=== PATIENT | male | born 1955 | race Caucasian/White ===

== ENCOUNTER 2017-03-07 20:23 | Inpatient (IN) | payer OTHER, MEDICARE ==
[2017-03-07] MEDS ORDERED: SODIUM CHLORIDE 0.9% 1000 ML INFUS.BAG IV PRN (21:12)
--- NOTE | 2017-03-07 21:12 | PDOC ---
History of Present Illness - History of Present Illness Initial Comments: 03/07/17 21:54 The patient is a 61 year old male, with a significant past medical history of COPD, collapsed left lung, who presents to the emergency department with shortness of breath and 104 degree fever. Patient states that he is currently on oxygen and has a nebulizer. He recently saw the ENT to see if he was allergic to penicillin since it runs in the family. While he was there he was given the pneumonia shot. This morning he began experiencing nasal congestion so he tried flushing it out with warm water. He states that clots of blood began to pour out and subsided for 1 hour. He states that he took 2 Tylenol around 5pm today. He denies any recent chills, headache or dizziness. He denies any recent nausea , vomit, diarrhea or constipation. He denies any recent chest pain. He denies any recent dysuria, frequency, urgency or hematuria. Allergies: NKA Past surgical history: None reported. Social History: Former smoker (quit 10 yrs ago 4-5 packs) Denies EtOH use and recreational drug use. PCP: Paddy Mendoza [phone] <Tayla Rust - Last Filed: 03/08/17 01:59> <Jesusita Hsieh - Last Filed: 03/08/17 02:06> - General Chief Complaint: Respiratory Stated Complaint: COPD Time Seen by Provider: 03/07/17 20:39 Past History <Tayla Rust - Last Filed: 03/08/17 01:59> - Suicide/Smoking/Psychosocial Hx Smoking History: Unknown if ever smoked Have you smoked in the past 12 months: No Information on smoking cessation initiated: No Hx Alcohol Use: No Drug/Substance Use Hx: No <Jesusita Hsieh - Last Filed: 03/08/17 02:06> - Past Medical History Allergies/Adverse Reactions: Allergies Allergy/AdvReac Type Severity Reaction Status Date / Time No Known Allergies Allergy Verified 03/07/17 21:05 Review of Systems - Review of Systems Comments:: 03/07/17 22:02 CONSTITUTIONAL: Present: fever Absent: chills, diaphoresis, generalized weakness, malaise, loss of appetite HEENT: Present: nasal congestion, nasal discharge (w/blood) Absent: rhinorrhea, throat pain, throat swelling, difficulty swallowing, mouth swelling, ear pain, eye pain, visual changes CARDIOVASCULAR: Absent: chest pain, syncope, palpitations, irregular heart rate, lightheadedness , peripheral edema RESPIRATORY: Present: dyspnea, Absent: cough, wheezing, stridor, hemoptysis GASTROINTESTINAL: Absent: abdominal pain, abdominal distension, nausea, vomiting, diarrhea, constipation, melena, hematochezia GENITOURINARY: Absent: dysuria, frequency, urgency, hesitancy, hematuria, flank pain, genital pain MUSCULOSKELETAL: Absent: myalgia, arthralgia, joint swelling SKIN: Absent: rash, itching, pallor HEMATOLOGIC/IMMUNOLOGIC: Absent: easy bleeding, easy bruising, lymphadenopathy, frequent infections ENDOCRINE: Absent: unexplained weight gain, unexplained weight loss, heat intolerance, cold intolerance NEUROLOGIC: Absent: headache, focal weakness or paresthesias, dizziness, unsteady gait, seizure, mental status changes, bladder or bowel incontinence PSYCHIATRIC: Absent: anxiety, depression, suicidal or homicidal ideation, hallucinations. <Tayla Rust - Last Filed: 03/08/17 01:59> *Physical Exam - Vital Signs Last Vital Signs Temp Pulse Resp BP Pulse Ox 102.1 F H 115 H 16 92/60 96 03/07/17 21:05 03/07/17 21:05 03/07/17 21:05 03/07/17 21:05 03/07/17 21:05 - Physical Exam Comments: 03/07/17 22:08 GENERAL: 102 oral temperature. Morbidly obese. Well developed, well nourished. Awake and alert. No acute distress. HEENT: Normocephalic, atraumatic. PERRLA, EOMI. No conjunctival pallor. Sclera are non- icteric. Moist mucous membranes. Oropharynx is clear. NECK: Supple. Full ROM. No JVD. Carotid pulses 2+ and symmetric, without bruits. No thyromegaly. No lymphadenopathy. CARDIOVASCULAR: Hypotensive. No murmurs, rubs, or gallops. PULMONARY: Dyspneic. No wheezing. ABDOMINAL: Soft, protuberant. Non-tender. Non-distended. No rebound or guarding. No organomegaly. Normoactive bowel sounds. MUSCULOSKELETAL Normal range of motion at all joints. No bony deformities or tenderness. No CVA tenderness. EXTREMITIES: chronic venous stasis, pitting edema, erythema to right lower leg. No cyanosis. No clubbing. No calf tenderness. SKIN: Warm and dry. Normal capillary refill. No rashes. No jaundice. NEUROLOGICAL: Alert, awake, appropriate. Cranial nerves 2-12 intact. No deficits to light touch and temperature in face, upper extremities and lower extremities. No motor deficits in the in face, upper extremities and lower extremities. Normoreflexic in the upper and lower extremities. Normal speech. Toes are down-going bilaterally. Gait is normal without ataxia. PSYCHIATRIC: Cooperative. Good eye contact. Appropriate mood and affect. <Tayla Rust - Last Filed: 03/08/17 01:59> - Vital Signs Last Vital Signs Temp Pulse Resp BP Pulse Ox 102.1 F H 115 H 16 92/60 96 03/07/17 21:05 03/07/17 21:05 03/07/17 21:05 03/07/17 21:05 03/07/17 21:05 <Jesusita Hsieh - Last Filed: 03/08/17 02:06> Heart Score/ECG Review - ECG Intrepretation Comment:: 03/08/17 00:45 ECG interpretation Sinus tachycardia possible left atrial enlargement incomplete right bundle branch block left posterior fascicular block Vent rate: 112 bpm <Tayla Rust - Last Filed: 03/08/17 01:59> ED Treatment Course - LABORATORY CBC & Chemistry Diagram: 03/07/17 22:00 03/07/17 22:00 <Tayla Rust - Last Filed: 03/08/17 01:59> - LABORATORY CBC & Chemistry Diagram: 03/07/17 22:00 03/07/17 22:00 <Jesusita Hsieh - Last Filed: 03/08/17 02:06> Medical Decision Making - Medical Decision Making 03/08/17 01:48 duplex doppler was NEGATIVE for DVT 03/08/17 02:02 61-year-old morbidly obese male presents with fever and shortness of breath. RLE is erythematous, +cellulitis History of present illness patient typically is seen at [facility] and comes to [facility] for the first time. He has a fever 102, was hypotensive with systolic of 95 and he is hypoxic at 89 % on room air. Past medical history significant for COPD and does use oxygen at home as needed , he takes a water pill 20 mg of Lasix a day, he has chronic venous stasis and has had multiple episodes of cellulitis. Patient takes Lasix 20 mg, he has bronchodilators to use at home, prednisolone 10 mg daily Influenza culture is negative Chest x-ray negative for any acute infiltrates, some suggestion of mild congestive heart failure Review of her CBC shows leukocytosis of 26,000, no significant anemia Chemistries significant for renal insufficiency. BPH greater than 600. Urine cultures and blood cultures sent. Troponin was 0.[address] Segovia. The patient will be admitted to [facility] for IV antibiotics for suspected cellulitis IMP CELULITIS/SEPSIS,COPD,MORBID OBESITY <Jesusita Hsieh - Last Filed: 03/08/17 02:06> *DC/Admit/Observation/Transfer - Attestations Scribe Attestion: 03/07/17 22:11 Documentation prepared by Tayla Rust, acting as outside medical sales representative for Jesusita Hsieh MD. <Tayla Rust - Last Filed: 03/08/17 01:59> - Discharge Dispostion Admit: Yes <Jesusita Hsieh - Last Filed: 03/08/17 02:06> Diagnosis at time of Disposition: Morbid obesity Cellulitis Qualifiers: Site of cellulitis: mouth Qualified Code(s): K12.2 - Cellulitis and abscess of mouth Fever Qualifiers: Fever type: unspecified Qualified Code(s): R50.9 - Fever, unspecified CHF (congestive heart failure) Qualifiers: Congestive heart failure type: unspecified congestive heart failure type Congestive heart failure chronicity: unspecified congestive heart failure chronicity Qualified Code(s): I50.9 - Heart failure, unspecified COPD (chronic obstructive pulmonary disease) Qualifiers: COPD type: emphysema Emphysema type: unspecified Qualified Code(s): J43.9 - Emphysema, unspecified
[2017-03-07 22:18] LABS: MCHC 31.3 g/dl (32.0-35.9); MEAN CELL VOLUME 70.3 fl (80-96); MEAN PLT VOLUME 8.8 fl (7.5-11.1); PLATELET COUNT 194 K/MM3 (134-434); RDW 16.9 % (11.9-15.9); WHITE BLOOD COUNT 26.3 K/mm3 (4.0-10.0)
[2017-03-07 23:13] LABS: INR 1.17 (0.82-1.09); PROTHROMBIN TIME (PATIENT) 13.2 SEC (9.98-11.88)
[2017-03-07 23:20] LABS: ALBUMIN 4.1 g/dl (3.4-5.0); ANION GAP 13 (8-16); BILIRUBIN,TOTAL 0.9 mg/dL (0.2-1.0); CALCIUM 9.3 mg/dL (8.5-10.1); CO2 26 mmol/L (21-32); GLUCOSE,RANDOM 118 mg/dL (74-106); SGOT/AST 27 U/L (15-37); SGPT/ALT 29 U/L (12-78); TOT PROT 7.6 g/dl (6.4-8.2)
[2017-03-07 23:22] LABS: ALK PHOS 77 U/L (45-117); CPK 316 IU/L (39-308); TROPONIN I 0.08 ng/ml (0.00-0.05)
[2017-03-07 23:42] LABS: VENOUS BLOOD GAS HCO3 23.4 meq/L (19-25); VENOUS PH 7.34 (7.32-7.42)
[2017-03-08 00:11] LABS: URINE APPEARANCE CLEAR; URINE BILIRUBIN 1+ (NEGATIVE); URINE BLOOD NEGATIVE (NEGATIVE); URINE COLOR YELLOW; URINE GLUCOSE (UA) NEGATIVE (NEGATIVE); URINE KETONE TRACE (NEGATIVE); URINE NITRITE NEGATIVE (NEGATIVE); URINE UROBILINOGEN 0.2 mg/dL (0.2-1.0)
[2017-03-08 00:19] LABS: URINE PROTEIN 2+ (NEGATIVE)
[2017-03-08] MEDS ORDERED: CEFTRIAXONE 1 GM in DEXTROSE 5%-WATER - 50 ML IVPB ONE (00:51)
[2017-03-08] MEDS ORDERED: AZITHROMYCIN IVPB 500 MG in DEXTROSE 5%-WATER - 250 ML IVPB ONE (00:52)
[2017-03-08] MEDS ORDERED: CEFTRIAXONE 1 GM/50 ML BAG ONE (00:57)
[2017-03-08 01:03] LABS: SMUDGE CELLS FEW
[2017-03-08 01:04] LABS: ANISOCYTOSIS 1+; HYPOCHROMIA 1+; MICROCYTOSIS 1+; POIKILOCYTOSIS 1+; POLYCHROMASIA 1+
[2017-03-08] MEDS ORDERED: PIPERACIL/TAZOB 3.375 GM 3.375 GM/50 ML PREMIX IVPB ONE (01:57)
--- NOTE | 2017-03-08 02:05 | PN ---
Teaching Attending Note Name of Resident: Ed Shaver ATTENDING PHYSICIAN STATEMENT I saw and evaluated the patient. I reviewed the resident's note and discussed the case with the resident. I agree with the resident's findings and plan as documented. SUBJECTIVE: 61 yo M COPD on home 02, collapsed left lung from pneumonia, obesity who presents with shortness of breath, and fever. States he went to ENT who recently placed him on Symbicort and he states he was unable to tolerate it. States this morning he started to have nasal congestion and he flushed his nose with warm water and clots fell out. Notes he had increased shortness of breath, no chest pain or pressure. States he was febrile at home to 104. States he recently had his pneumonia. States he is on chronic steriods for his COPD. COPD is managed by his PCP. OBJECTIVE: Physical: VS: Vital Signs Period Temp Pulse Resp BP Sys/Santiago Pulse Ox Last 24 Hr 98.5 F-102.1 F 95-115 16-25 92-95/53-60 89-96 GEN: NAD, Sitting in a chair, on 02, able to speak full sentences HEENT: NCAT, PERRL, Throat without erythema or exudates CARD: S tach S1, S2 RESP: Decreased BS at bases ABD: Obese BSX4, NTD to palpation EXT: RLE with warmth, dry ulcers and non-pitting edema. CBCD WBC 26.3 K/mm3 (4.0-10.0) H 03/07/17 22:00 RBC 6.78 M/mm3 (4.00-5.60) H 03/07/17 22:00 Hgb 14.9 GM/dL (11.7-16.9) 03/07/17 22:00 Hct 47.7 % (35.4-49) 03/07/17 22:00 MCV 70.3 fl (80-96) L 03/07/17 22:00 MCHC 31.3 g/dl (32.0-35.9) L 03/07/17 22:00 RDW 16.9 % (11.9-15.9) H 03/07/17 22:00 Plt Count 194 K/MM3 (134-434) 03/07/17 22:00 MPV 8.8 fl (7.5-11.1) 03/07/17 22:00 CMP Sodium 137 mmol/L (136-145) 03/07/17 22:00 Potassium 4.2 mmol/L (3.5-5.1) 03/07/17 22:00 Chloride 98 mmol/L (98-107) 03/07/17 22:00 Carbon Dioxide 26 mmol/L (21-32) 03/07/17 22:00 Anion Gap 13 (8-16) 03/07/17 22:00 BUN 34 mg/dL (7-18) H 03/07/17 22:00 Creatinine 2.0 mg/dL (0.7-1.3) H 03/07/17 22:00 Creat Clearance w eGFR 34.37 (>60) 03/07/17 22:00 Random Glucose 118 mg/dL (74-106) H 03/07/17 22:00 Calcium 9.3 mg/dL (8.5-10.1) 03/07/17 22:00 Total Bilirubin 0.9 mg/dL (0.2-1.0) 03/07/17 22:00 AST 27 U/L (15-37) 03/07/17 22:00 ALT 29 U/L (12-78) 03/07/17 22:00 Alkaline Phosphatase 77 U/L (45-117) 03/07/17 22:00 Total Protein 7.6 g/dl (6.4-8.2) 03/07/17 22:00 Albumin 4.1 g/dl (3.4-5.0) 03/07/17 22:00 CARDIAC ENZYMES Creatine Kinase 316 IU/L (39-308) H 03/07/17 22:00 Troponin I 0.08 ng/ml (0.00-0.05) H 03/07/17 22:00 CXR: Mild- Mod. Pulmonary Vascular congestion and possibly small left plueral effusion vs. non-specific thickening, correlate clinically for CHF exacerbation. No definate airspace consolidation to suggest pneumonia ASSESSMENT AND PLAN: 61 yo M COPD on home 02, collapsed left lung from pneumonia, obesity who presents with shortness of breath, and fever. Being admitted for sepsis, CHF, and COPD 1.)Acute CHF Exacerbation - Trend Trop/EKG - Lasix - ECHO - Cardio Consult - Daily Weight - NA/Fluid Restrict 2.) Acute Exacerbation of COPD - Duonebs - Solumedrol - C/W Singulaor - Cannot tolerate Symbicort or Advair - Pulm. consult for optimization 3.) Sepsis (Although leukocytosis may be due to steriod use)-fever and tachy - LA Pending - Most likely due to Cellulitis - Blood Cx - Flu negative - Vancomycin - ID consult - FU UA, Ucx 4.) Troponin Elevation - Most likely demand, Trend - Lipid Panel, HgBA1c 5.) LAWANDA - U lytes - Avoid Nephrotoxins - Trend 6.) Dvt PPx - Heparin [address] in Med-Tele
[2017-03-08] MEDS ORDERED: AZITHROMYCIN IVPB 250 ML IVPB ONE (02:22)
[2017-03-08] MEDS ORDERED: VANCOMYCIN 1 GRAM (PRE-DOCKED) 1,000 MG/250 ML BAG IVPB ONE (02:32)
[2017-03-08] MEDS ORDERED: ACETAMINOPHEN 500 MG TABLET (FP) PO ONE (02:32)
[2017-03-08 02:33] LABS: URINE BACTERIA RARE /hpf (NONE SEEN); URINE HYALINE CAST 7 /lpf; URINE MUCUS RARE; URINE RBC 1 /hpf (0-3); URINE WBC 15 /hpf (3-5)
--- NOTE | 2017-03-08 02:38 | HP ---
CHIEF COMPLAINT: SOB, chills. HISTORY OF PRESENT ILLNESS: Patient is a 61 yo M with a PMHx of COPD (on home O2 but does not use frequently), obesity, CHF, sleep apnea, presented today because of worsening SOB, Chills and a subjective fever of 104.2 that started started today. Patient said he also was delirious and hallucinating with extreme chills. He took 2 tylenol pills with no improvement in temperature. He says he is short of breath at baseline because of his Hx of COPD but felt worse today. He also has increasing cough with yellow sputum production. He was started on Symbicort 2 weeks ago and says he gets pneumonia everytime he takes symbicort. This morning he also had nasal congestion and when he went to flush his nose he had an episode of epistaxis with blood clots. He is on chronic steroids for his COPD and does not follow a rib chopper. ER course was notable for: (1)102.1 Temp, 95/53 BP, 25 RR (2)WBC: 26.3 (3)IV ABx: Ceftriaxone, Azithromycin Recent Travel: n/a PAST MEDICAL HISTORY: COPD (on home O2), obesity, CHF, sleep apnea PAST SURGICAL HISTORY: Social History: Smoking: quit 10 years ago Alcohol:denies Drugs: denies Family History: Allergies No Known Allergies Allergy (Verified 03/07/17 21:05) HOME MEDICATIONS: REVIEW OF SYSTEMS CONSTITUTIONAL: fevers, chills Absent: diaphoresis, generalized weakness, malaise, loss of appetite, weight change HEENT: nasal congestion Absent: throat pain, throat swelling, difficulty swallowing, mouth swelling, ear pain, eye pain, visual changes CARDIOVASCULAR: peripheral edema Absent: chest pain, syncope, palpitations, irregular heart rate, lightheadedness RESPIRATORY: cough, shortness of breath Absent: dyspnea with exertion, orthopnea, wheezing, stridor, hemoptysis GASTROINTESTINAL: Absent: abdominal pain, abdominal distension, nausea, vomiting, diarrhea, constipation, melena, hematochezia GENITOURINARY: Absent: dysuria, frequency, urgency, hesitancy, hematuria, flank pain, genital pain MUSCULOSKELETAL: Absent: myalgia, arthralgia, joint swelling, back pain, neck pain SKIN: Absent: itching, pallor HEMATOLOGIC/IMMUNOLOGIC: Absent: easy bleeding, easy bruising, lymphadenopathy, frequent infections NEUROLOGIC: Absent: headache, focal weakness or paresthesias, dizziness, unsteady gait, seizure, mental status changes, bladder or bowel incontinence PHYSICAL EXAMINATION Vital Signs - 24 hr 03/07/17 03/08/17 21:05 00:54 Temperature 102.1 F H 98.5 F Pulse Rate 115 H Pulse Rate [ 95 H Apical] Respiratory 16 25 H Rate Blood Pressure 92/60 Blood Pressure 95/53 [Right Arm] O2 Sat by Pulse 96 89 L Oximetry (%) GENERAL: obese, Awake, alert, and fully oriented, in no acute distress. HEAD: Normal with no signs of trauma. EYES: sclera anicteric, conjunctiva clear EARS, NOSE, THROAT: nares patent, oropharynx clear without exudates. Moist mucous membranes. NECK: supple without lymphadenopathy LUNGS: decreased breath sounds at bases. No wheezes, and no crackles. HEART: Regular rate and rhythm, normal S1 and S2 without murmur, rub or gallop. ABDOMEN: Obese, nontender, not distended, normoactive bowel sounds, no guarding , no rebound UPPER EXTREMITIES: 2+ pulses, warm, well-perfused. No cyanosis. No clubbing. LOWER EXTREMITIES: B/L lymphedema, chronic venous stasis, RLE dry ulceration, warm, erythematous, non pitting edema. PSYCHIATRIC: Cooperative. Good eye contact. Appropriate mood and affect. SKIN: Warm, dry, normal turgor, no rashes or lesions noted, normal capillary refill. Laboratory Results - last 24 hr 03/07/17 03/07/17 03/07/17 21:55 22:00 22:00 WBC 26.3 H RBC 6.78 H Hgb 14.9 Hct 47.7 MCV 70.3 L MCH 22.0 L MCHC 31.3 L RDW 16.9 H Plt Count 194 MPV 8.8 Neutrophils % [employer] Neutrophils % (Manual) 87.0 H Band Neutrophils % 5.0 Lymphocytes % [employer] Lymphocytes % (Manual) 1.0 L Monocytes % [employer] Monocytes % (Manual) 7 Eosinophils % [employer] Basophils % [employer] Smudge Cells Few Hypochromia 1+ Polychromasia 1+ Poikilocytosis 1+ Anisocytosis 1+ Microcytosis 1+ PT with INR 13.20 H INR 1.17 H PTT (Actin FS) 27.0 VBG pH POC VBG pCO2 POC VBG pO2 Mixed VBG HCO3 Sodium Potassium Chloride Carbon Dioxide Anion Gap BUN Creatinine Creat Clearance w eGFR Random Glucose Calcium Total Bilirubin AST ALT Alkaline Phosphatase Creatine Kinase Creatine Kinase Index CK-MB (CK-2) Troponin I B-Natriuretic Peptide 637.81 H Total Protein Albumin Urine Color Urine Appearance Urine pH Ur Specific [place] Urine Protein Urine Glucose (UA) Urine Ketones Urine Blood Urine Nitrite Urine Bilirubin Urine Urobilinogen Blood Type Antibody Screen 03/07/17 03/07/17 03/07/17 22:00 22:00 22:40 WBC RBC Hgb Hct MCV MCH MCHC RDW Plt Count MPV Neutrophils % Neutrophils % (Manual) Band Neutrophils % Lymphocytes % Lymphocytes % (Manual) Monocytes % Monocytes % (Manual) Eosinophils % Basophils % Smudge Cells Hypochromia Polychromasia Poikilocytosis Anisocytosis Microcytosis PT with INR INR PTT (Actin FS) VBG pH POC VBG pCO2 POC VBG pO2 Mixed VBG HCO3 Sodium 137 Potassium 4.2 Chloride 98 Carbon Dioxide 26 Anion Gap 13 BUN 34 H Creatinine 2.0 H Creat Clearance w eGFR 34.37 Random Glucose 118 H Calcium 9.3 Total Bilirubin 0.9 AST 27 ALT 29 Alkaline Phosphatase 77 Creatine Kinase 316 H Creatine Kinase Index 0.5 CK-MB (CK-2) 1.772 Troponin I 0.08 H B-Natriuretic Peptide Total Protein 7.6 Albumin 4.1 Urine Color Yellow Urine Appearance Clear Urine pH 6.0 Ur Specific [place] 1.015 Urine Protein 2+ H Urine Glucose (UA) Negative Urine Ketones Trace H Urine Blood Negative Urine Nitrite Negative Urine Bilirubin 1+ H Urine Urobilinogen 0.2 Blood Type O POSITIVE Antibody Screen Negative 03/07/17 23:17 WBC RBC Hgb Hct MCV MCH MCHC RDW Plt Count MPV Neutrophils % Neutrophils % (Manual) Band Neutrophils % Lymphocytes % Lymphocytes % (Manual) Monocytes % Monocytes % (Manual) Eosinophils % Basophils % Smudge Cells Hypochromia Polychromasia Poikilocytosis Anisocytosis Microcytosis PT with INR INR PTT (Actin FS) VBG pH 7.34 POC VBG pCO2 44.9 POC VBG pO2 40.0 Mixed VBG HCO3 23.4 Sodium Potassium Chloride Carbon Dioxide Anion Gap BUN Creatinine Creat Clearance w eGFR Random Glucose Calcium Total Bilirubin AST ALT Alkaline Phosphatase Creatine Kinase Creatine Kinase Index CK-MB (CK-2) Troponin I B-Natriuretic Peptide Total Protein Albumin Urine Color Urine Appearance Urine pH Ur Specific [place] Urine Protein Urine Glucose (UA) Urine Ketones Urine Blood Urine Nitrite Urine Bilirubin Urine Urobilinogen Blood Type Antibody Screen ASSESSMENT/PLAN: #Sepsis likely secondary to RLE Cellulitis -102.1 Temp, 25 RR -Hypotensive 89/61 BP -WBC: 26.3 -LA 1.6 -IV ABx: Vancomycin 1gm -UCX, Bcx pending -250 Bolus IV fluids and re-assess patient -cardiac monitoring -ID consulted #B/l chronic lower extremity lymphedema -keep legs elevated -wash with luke warm water -apply moisturizer -compression stockings up till knee starting from dorsum of foot -Venous duplex negative for DVT #COPD exacerbation -O2 Supplementation -Solu-Medrol 60mg BID -Albuterol PRN -Duoneb Q6H -Montelukast 10mg -Pulmonology consulted #CHF -Daily weight, I/O's -Echo -Cardiology consulted -Patient is hypotensive due to sepsis, will hold Lasix -cardiac monitoring #LAWANDA -likely prerenal azotemia -urine electrolytes -protein to creatinine ratio -renal u/s #Elevated Troponin -likely demand -1st set 0.08 -FU repeat Trop in AM #FEN -Fluid restriction -WNL -Sodium restricted diet #PPX: Heparin SQ TID Dispo: Tele Visit type - Emergency Visit Emergency Visit: Yes ED Registration Date: 03/08/17 Care time: The patient presented to the Emergency Department on the above date and was hospitalized for further evaluation of their emergent condition. - New Patient This patient is new to me today: Yes Date on this admission: 03/08/17 - Critical Care Critical Care patient: No
[2017-03-08] MEDS ORDERED: predniSONE 20 MG TABLET (UD) PO SCH (02:45)
[2017-03-08] MEDS ORDERED: SODIUM CHLORIDE 250 ML IV STA (03:12)
[2017-03-08] MEDS ORDERED: ACETAMINOPHEN 325 MG TABLET (FP) ONE (03:17)
[2017-03-08 04:53] LABS: ALLENS TEST POSITIVE; ART PUNCT SITE LEFT RADIAL; ARTERIAL BLOOD GAS BASE EXCESS 0.7 meq/l (-2-2); ARTERIAL BLOOD GAS HCO3 26.6 meq/L (22-26); ARTERIAL BLOOD GAS PO2 90.9 mmHg (80-100); ARTERIAL BLOOD GAS pH 7.35 (7.35-7.45); LPM/O2% 5L; METHEMOGLOBIN 0.7 % (0.4-1.5); PT. ON O2? YES; TYPE OF O2 NASAL
[2017-03-08] MEDS ORDERED: PIPERACILLIN/TAZOB 3.375 GM 3.375 GM/50 ML BAG IVPB ONE ×3 (04:57→19:01)
[2017-03-08 05:44] LABS: TROPONIN I 0.05 ng/ml (0.00-0.05)
[2017-03-08] MEDS: HEPARIN NA (PORCINE) 5,000 UNITS/ML 1ML VIAL SQ SCH ×3 (06:29→23:38)
[2017-03-08] MEDS: ALBUTEROL SO4 2.5/IPRATROPIUM 0.5 INH SOL 3 ML VIAL.NEB. NEB SCH ×3 (06:29→19:06)
[2017-03-08] MEDS ORDERED: HEPARIN NA (PORCINE) 5,000 UNITS/ML 1ML VIAL ONE (06:58)
[2017-03-08] MEDS ORDERED: ALBUTEROL SO4 2.5/IPRATROPIUM 0.5 INH SOL 3 ML VIAL.NEB. NEB ONE ×3 (06:58→16:37)
[2017-03-08 07:01] LABS: MCH 21.9 pg (25.7-33.7); MEAN CELL VOLUME 70.5 fl (80-96); MEAN PLT VOLUME 7.9 fl (7.5-11.1); PLATELET COUNT 160 K/MM3 (134-434); WHITE BLOOD COUNT 23.1 K/mm3 (4.0-10.0)
[2017-03-08 07:28] LABS: ALBUMIN 3.6 g/dl (3.4-5.0); ANION GAP 11 (8-16); BILIRUBIN,TOTAL 0.9 mg/dL (0.2-1.0); CO2 27 mmol/L (21-32); GLUCOSE,RANDOM 122 mg/dL (74-106); MAGNESIUM 1.8 mg/dL (1.8-2.4); PHOSPHOROUS 5.7 mg/dL (2.5-4.9); SGOT/AST 24 U/L (15-37); SGPT/ALT 27 U/L (12-78)
[2017-03-08 07:30] LABS: ALK PHOS 67 U/L (45-117); CALCIUM 8.6 mg/dL (8.5-10.1); TOT PROT 7.1 g/dl (6.4-8.2)
--- NOTE | 2017-03-08 07:57 | CONSULT ---
Consultation: REQUESTING PROVIDER: Ruthie Bullock CONSULT REQUEST: We have been asked to medically evaluate this patient for sepsis. HISTORY OF PRESENT ILLNESS: 61M w/ hx of multiple episodes of cellulitis, COPD (on home O2), CHF, morbid obesity, and GAY presenting with SOB and fever of 104.2 for 1 day. Pt also reports chills, nasal congestion, increased cough, and feeling delirious and hallucinating. He took 2 tylenols without relief. He flushed his nose with water which led to epistaxis with clots. Pt usually follows at [facility]. He reports chronic venous stasis changes in his legs for last 10 years with multiple episodes of cellulitis. He currently denies leg pain or increasing erythema, but endorses mild increased swelling in RLE. In the ED, pt given the antibiotics zosyn, vancomycin, ceftriaxone, and azithromycin. REVIEW OF SYSTEMS: CONSTITUTIONAL: Absent: diaphoresis, generalized weakness, malaise, loss of appetite, weight change present: fever, chills HEENT: Absent: throat pain, throat swelling, difficulty swallowing, mouth swelling, ear pain, eye pain, visual changes present: nasal congestion, epistaxis CARDIOVASCULAR: Absent: chest pain, syncope, palpitations, irregular heart rate, lightheadedness , peripheral edema RESPIRATORY: Absent: dyspnea with exertion, orthopnea, wheezing, stridor, hemoptysis present: cough, SOB GASTROINTESTINAL: Absent: abdominal pain, abdominal distension, nausea, vomiting, diarrhea, constipation, melena, hematochezia GENITOURINARY: Absent: dysuria, frequency, urgency, hesitancy, hematuria, flank pain, genital pain MUSCULOSKELETAL: Absent: myalgia, arthralgia, joint swelling, back pain, neck pain SKIN: Absent: rash, itching, pallor HEMATOLOGIC/IMMUNOLOGIC: Absent: easy bleeding, easy bruising, lymphadenopathy, frequent infections ENDOCRINE: Absent: unexplained weight gain, unexplained weight loss, heat intolerance, cold intolerance NEUROLOGIC: Absent: headache, focal weakness or paresthesias, dizziness, unsteady gait, seizure, mental status changes, bladder or bowel incontinence present: delirium, hallucinating PHYSICAL EXAMINATION Vital Signs - 24 hr 03/07/17 03/08/17 03/08/17 21:05 00:54 04:01 Temperature 102.1 F H 98.5 F Pulse Rate 115 H Pulse Rate [ 95 H 80 Apical] Respiratory 16 25 H Rate Blood Pressure 92/60 Blood Pressure 95/53 100/59 [Right Arm] O2 Sat by Pulse 96 89 L Oximetry (%) 03/08/17 06:31 Temperature Pulse Rate Pulse Rate [ 89 Apical] Respiratory 20 Rate Blood Pressure Blood Pressure 98/78 [Right Arm] O2 Sat by Pulse 99 Oximetry (%) GENERAL: obese male, awake, alert, and fully oriented, in no acute distress. HEAD: Normal with no signs of trauma. EYES: Pupils equal, round and reactive to light, extraocular movements intact, sclera anicteric, conjunctiva clear. No lid lag. EARS, NOSE, THROAT: Ears normal, nares patent, oropharynx clear without exudates. Moist mucous membranes. NECK: Normal range of motion, supple without lymphadenopathy, JVD, or masses. LUNGS: breathing on NC 3L, Breath sounds equal, clear to auscultation bilaterally. No wheezes, and no crackles. No accessory muscle use. HEART: Regular rate and rhythm, normal S1 and S2 without murmur, rub or gallop. ABDOMEN: obese, soft, nontender, not distended, normoactive bowel sounds, no guarding, no rebound, no masses. No hepatomegaly or splenomegaly. MUSCULOSKELETAL: b/l severe LE edema with venous stasis dermatitis, erythematous , non-warm to touch, non-tender to palpation NEUROLOGICAL: Cranial nerves II-XII intact. Normal speech. Normal gait. PSYCHIATRIC: Cooperative. Good eye contact. Appropriate mood and affect. Laboratory Results - last 24 hr 03/07/17 03/07/17 03/07/17 21:55 22:00 22:00 WBC 26.3 H RBC 6.78 H Hgb 14.9 Hct 47.7 MCV 70.3 L MCH 22.0 L MCHC 31.3 L RDW 16.9 H Plt Count 194 MPV 8.8 Neutrophils % [employer] Neutrophils % (Manual) 87.0 H Band Neutrophils % 5.0 Lymphocytes % [employer] Lymphocytes % (Manual) 1.0 L Monocytes % [employer] Monocytes % (Manual) 7 Eosinophils % [employer] Basophils % [employer] Smudge Cells Few Hypochromia 1+ Polychromasia 1+ Poikilocytosis 1+ Anisocytosis 1+ Microcytosis 1+ PT with INR 13.20 H INR 1.17 H PTT (Actin FS) 27.0 Puncture Site ABG pH ABG pCO2 at Pt Temp ABG pO2 at Pt Temp ABG HCO3 ABG O2 Sat (Measured) ABG O2 Content ABG Base Excess Mauri Test VBG pH POC VBG pCO2 POC VBG pO2 Mixed VBG HCO3 Carboxyhemoglobin Methemoglobin O2 Delivery Device Oxygen Flow Rate PEEP Sodium Potassium Chloride Carbon Dioxide Anion Gap BUN Creatinine Creat Clearance w eGFR Random Glucose Lactic Acid Calcium Phosphorus Magnesium Total Bilirubin AST ALT Alkaline Phosphatase Creatine Kinase Creatine Kinase Index CK-MB (CK-2) Troponin I B-Natriuretic Peptide 637.81 H Total Protein Albumin Urine Color Urine Appearance Urine pH Ur Specific [place] Urine Protein Urine Glucose (UA) Urine Ketones Urine Blood Urine Nitrite Urine Bilirubin Urine Urobilinogen Urine WBC (Auto) Urine RBC (Auto) Ur Epithelial Cells Urine Bacteria Hyaline Casts Urine Mucus U Random Total Protein Ur Random Sodium Ur Random Potassium Ur Random Chloride Urine Creatinine Protein/Creatinin Ratio Blood Type Antibody Screen 03/07/17 03/07/17 03/07/17 22:00 22:00 22:40 WBC RBC Hgb Hct MCV MCH MCHC RDW Plt Count MPV Neutrophils % Neutrophils % (Manual) Band Neutrophils % Lymphocytes % Lymphocytes % (Manual) Monocytes % Monocytes % (Manual) Eosinophils % Basophils % Smudge Cells Hypochromia Polychromasia Poikilocytosis Anisocytosis Microcytosis PT with INR INR PTT (Actin FS) Puncture Site ABG pH ABG pCO2 at Pt Temp ABG pO2 at Pt Temp ABG HCO3 ABG O2 Sat (Measured) ABG O2 Content ABG Base Excess Mauri Test VBG pH POC VBG pCO2 POC VBG pO2 Mixed VBG HCO3 Carboxyhemoglobin Methemoglobin O2 Delivery Device Oxygen Flow Rate PEEP Sodium 137 Potassium 4.2 Chloride 98 Carbon Dioxide 26 Anion Gap 13 BUN 34 H Creatinine 2.0 H Creat Clearance w eGFR 34.37 Random Glucose 118 H Lactic Acid Calcium 9.3 Phosphorus Magnesium Total Bilirubin 0.9 AST 27 ALT 29 Alkaline Phosphatase 77 Creatine Kinase 316 H Creatine Kinase Index 0.5 CK-MB (CK-2) 1.772 Troponin I 0.08 H B-Natriuretic Peptide Total Protein 7.6 Albumin 4.1 Urine Color Yellow Urine Appearance Clear Urine pH 6.0 Ur Specific [place] 1.015 Urine Protein 2+ H Urine Glucose (UA) Negative Urine Ketones Trace H Urine Blood Negative Urine Nitrite Negative Urine Bilirubin 1+ H Urine Urobilinogen 0.2 Urine WBC (Auto) 15 Urine RBC (Auto) 1 Ur Epithelial Cells Rare Urine Bacteria Rare Hyaline Casts 7 Urine Mucus Rare U Random Total Protein Ur Random Sodium Ur Random Potassium Ur Random Chloride Urine Creatinine Protein/Creatinin Ratio Blood Type O POSITIVE Antibody Screen Negative 03/07/17 03/08/17 03/08/17 23:17 02:23 04:50 WBC RBC Hgb Hct MCV MCH MCHC RDW Plt Count MPV Neutrophils % Neutrophils % (Manual) Band Neutrophils % Lymphocytes % Lymphocytes % (Manual) Monocytes % Monocytes % (Manual) Eosinophils % Basophils % Smudge Cells Hypochromia Polychromasia Poikilocytosis Anisocytosis Microcytosis PT with INR INR PTT (Actin FS) Puncture Site Left radial ABG pH 7.35 ABG pCO2 at Pt Temp 50.1 H ABG pO2 at Pt Temp 90.9 ABG HCO3 26.6 H ABG O2 Sat (Measured) 97.0 ABG O2 Content 19.0 ABG Base Excess 0.7 Mauri Test Positive VBG pH 7.34 POC VBG pCO2 44.9 POC VBG pO2 40.0 Mixed VBG HCO3 23.4 Carboxyhemoglobin 1.9 Methemoglobin 0.7 O2 Delivery Device Nasal Oxygen Flow Rate 5l PEEP 0.0 Sodium Potassium Chloride Carbon Dioxide Anion Gap BUN Creatinine Creat Clearance w eGFR Random Glucose Lactic Acid 1.6 Calcium Phosphorus Magnesium Total Bilirubin AST ALT Alkaline Phosphatase Creatine Kinase Creatine Kinase Index CK-MB (CK-2) Troponin I B-Natriuretic Peptide Total Protein Albumin Urine Color Urine Appearance Urine pH Ur Specific [place] Urine Protein Urine Glucose (UA) Urine Ketones Urine Blood Urine Nitrite Urine Bilirubin Urine Urobilinogen Urine WBC (Auto) Urine RBC (Auto) Ur Epithelial Cells Urine Bacteria Hyaline Casts Urine Mucus U Random Total Protein Ur Random Sodium Ur Random Potassium Ur Random Chloride Urine Creatinine Protein/Creatinin Ratio Blood Type Antibody Screen 03/08/17 03/08/17 03/08/17 04:50 04:50 06:25 WBC 23.1 H RBC 6.31 H Hgb 13.8 Hct 44.5 MCV 70.5 L MCH 21.9 L MCHC 31.0 L RDW 17.0 H Plt Count 160 MPV 7.9 D Neutrophils % [employer] Neutrophils % (Manual) Band Neutrophils % Lymphocytes % [employer] Lymphocytes % (Manual) Monocytes % [employer] Monocytes % (Manual) Eosinophils % [employer] Basophils % [employer] Smudge Cells Hypochromia Polychromasia Poikilocytosis Anisocytosis Microcytosis PT with INR INR PTT (Actin FS) Puncture Site ABG pH ABG pCO2 at Pt Temp ABG pO2 at Pt Temp ABG HCO3 ABG O2 Sat (Measured) ABG O2 Content ABG Base Excess Mauri Test VBG pH POC VBG pCO2 POC VBG pO2 Mixed VBG HCO3 Carboxyhemoglobin Methemoglobin O2 Delivery Device Oxygen Flow Rate PEEP Sodium Potassium Chloride Carbon Dioxide Anion Gap BUN Creatinine Creat Clearance w eGFR Random Glucose Lactic Acid Calcium Phosphorus Magnesium Total Bilirubin AST ALT Alkaline Phosphatase Creatine Kinase Creatine Kinase Index CK-MB (CK-2) Troponin I 0.05 D B-Natriuretic Peptide Total Protein Albumin Urine Color Urine Appearance Urine pH Ur Specific [place] Urine Protein Urine Glucose (UA) Urine Ketones Urine Blood Urine Nitrite Urine Bilirubin Urine Urobilinogen Urine WBC (Auto) Urine RBC (Auto) Ur Epithelial Cells Urine Bacteria Hyaline Casts Urine Mucus U Random Total Protein 220 H Ur Random Sodium 15 Ur Random Potassium 63.0 Ur Random Chloride 12 Urine Creatinine 406.0 H Protein/Creatinin Ratio 0.54 Blood Type Antibody Screen 03/08/17 06:25 WBC RBC Hgb Hct MCV MCH MCHC RDW Plt Count MPV Neutrophils % Neutrophils % (Manual) Band Neutrophils % Lymphocytes % Lymphocytes % (Manual) Monocytes % Monocytes % (Manual) Eosinophils % Basophils % Smudge Cells Hypochromia Polychromasia Poikilocytosis Anisocytosis Microcytosis PT with INR INR PTT (Actin FS) Puncture Site ABG pH ABG pCO2 at Pt Temp ABG pO2 at Pt Temp ABG HCO3 ABG O2 Sat (Measured) ABG O2 Content ABG Base Excess Mauri Test VBG pH POC VBG pCO2 POC VBG pO2 Mixed VBG HCO3 Carboxyhemoglobin Methemoglobin O2 Delivery Device Oxygen Flow Rate PEEP Sodium 135 L Potassium 4.3 Chloride 97 L Carbon Dioxide 27 Anion Gap 11 BUN 40 H Creatinine 3.0 H D Creat Clearance w eGFR 21.53 Random Glucose 122 H Lactic Acid Calcium 8.6 Phosphorus 5.7 H Magnesium 1.8 Total Bilirubin 0.9 AST 24 ALT 27 Alkaline Phosphatase 67 Creatine Kinase Creatine Kinase Index CK-MB (CK-2) Troponin I B-Natriuretic Peptide Total Protein 7.1 Albumin 3.6 Urine Color Urine Appearance Urine pH Ur Specific [place] Urine Protein Urine Glucose (UA) Urine Ketones Urine Blood Urine Nitrite Urine Bilirubin Urine Urobilinogen Urine WBC (Auto) Urine RBC (Auto) Ur Epithelial Cells Urine Bacteria Hyaline Casts Urine Mucus U Random Total Protein Ur Random Sodium Ur Random Potassium Ur Random Chloride Urine Creatinine Protein/Creatinin Ratio Blood Type Antibody Screen Active Medications Generic Name Dose Route Start Last Admin Trade Name Freq PRN Reason Stop Dose Admin Albuterol Sulfate 1 amp 03/08/17 02:34 Ventolin 0.083% Nebulizer Soln - NEB Q4H PRN SHORT OF BREATH/WHEEZING Albuterol/Ipratropium 1 amp 03/08/17 06:00 03/08/17 06:29 Duoneb - NEB 1 amp QIDR JALYN Administration Heparin Sodium (Porcine) 5,000 unit 03/08/17 06:00 03/08/17 06:29 Heparin - SQ 5,000 unit TID JALYN Administration Methylprednisolone Sodium Succinate 60 mg 03/08/17 10:00 Solu-Medrol - IVPUSH BID JALYN Montelukast Sodium 10 mg 03/08/17 22:00 Singulair - PO HS JALYN Sodium Chloride 1,000 ml 03/07/17 21:12 03/07/17 22:38 Normal Saline - IV 1,000 ml Q20M PRN Administration MAP<65mm Hg OR SBP <90 Doppler: negtive for DVT CXR: mild to moderate vascular congestion and possible small left pleural effusion ASSESSMENT/PLAN: 61M w/ hx of multiple episodes of cellulitis, COPD (on home O2), CHF, morbid obesity, and GAY presenting with acute fever. #RLE cellulitis -likely source for infection in this patient with fever and leukocytosis -continue vancomycin and zosyn -f/u cultures and sensitivities Rest of care per hospitalist team Plan discussed with attending, Dr. De La Cruz. Dispo: We will continue to follow the patient. Thank you for this consultative opportunity. -Douglas Miranda MD PGY1 Visit type - Emergency Visit Emergency Visit: Yes ED Registration Date: 03/08/17 Care time: The patient presented to the Emergency Department on the above date and was hospitalized for further evaluation of their emergent condition. - New Patient This patient is new to me today: Yes Date on this admission: 03/08/17 - Critical Care Critical Care patient: No
--- NOTE | 2017-03-08 08:29 | PN ---
Teaching Attending Note Name of Resident: Douglas Miranda ATTENDING PHYSICIAN STATEMENT I saw and evaluated the patient. I reviewed the resident's note and discussed the case with the resident. I agree with the resident's findings and plan as documented. SUBJECTIVE:Seen with Dr Miranda resident Febrile but does not acutely ill Baseline COPD on home O2 OBJECTIVE: ASSESSMENT AND PLAN: Selected Entries 03/07/17 21:05 Temperature 102.1 F H Pulse Rate 115 H Blood Pressure 92/60 O2 Sat by Pulse 96 Oximetry (%) Weight 350 lb Bilateral LE edema venous stasis dermatitis severe nodular lesions left swollen greater then R Morbid obesity Plan Agree with Vancomycin and Zosyn pending c/s Problem List - Problems (1) COPD (chronic obstructive pulmonary disease) Code(s): J44.9 - CHRONIC OBSTRUCTIVE PULMONARY DISEASE, UNSPECIFIED Qualifiers: COPD type: emphysema Emphysema type: unspecified Qualified Code(s): J43.9 - Emphysema, unspecified (2) Cellulitis Code(s): L03.90 - CELLULITIS, UNSPECIFIED Qualifiers: Site of cellulitis: mouth Qualified Code(s): K12.2 - Cellulitis and abscess of mouth (3) Fever Code(s): R50.9 - FEVER, UNSPECIFIED Qualifiers: Fever type: unspecified Qualified Code(s): R50.9 - Fever, unspecified (4) Morbid obesity Code(s): E66.01 - MORBID (SEVERE) OBESITY DUE TO EXCESS CALORIES
[2017-03-08 08:32] LABS: HYPOCHROMIA 2+; MICROCYTOSIS 2+; TOTAL CELLS COUNTED 100
--- NOTE | 2017-03-08 08:35 | PN ---
Physical Exam: SUBJECTIVE: Patient seen and examined by me this AM - Pt endorses chills overnight, chronic cough, now with productive yellow sputum. Denies fever, ART/dizziness, CP, palpitations, N/V, abdominal pain, dysuria, constipation, diarrhea - States that he was started on symbicort roughly two weeks ago; States that he get sbrochitis-like symptoms. Multiple prior admissions this year for PNA per pt , some of which he attributes to symbicort use. - Pt states he cannot lie down flat without becoming SOB. Does not ambulate with assistance. - Endorses decreased urine production, dark color. Epitaxis ~1 cup yesterday. - Pt on home oxygen, SOB at baseline. Currently on a 45 day course of prednisone. OBJECTIVE: Vital Signs Intake & Output 03/05/17 03/06/17 03/07/17 03/08/17 23:59 23:59 23:59 23:59 Weight 158.757 kg Period Temp Pulse Resp BP Sys/Santiago Pulse Ox Last 24 Hr 98.5 F-102.1 F 77-115 16-25 89-102/53-78 89-99 GENERAL: The patient is awake, alert, and fully oriented, in no acute distress. HEAD: NCAT EYES: PERRL, extraocular movements intact, sclera anicteric, conjunctiva clear. No ptosis. ENT: Ears normal, nares patent, oropharynx clear without exudates, moist mucous membranes. NECK: Trachea midline, supple. LUNGS: Decreased breath sounds at bases, trace upper lung field wheezes, no crackles, no accessory muscle use. HEART: 2/6 systolic murmur best appreciable at LLSB. Regular rate and rhythm, S1 , S2 without murmur, rub or gallop. ABDOMEN: Reducible umbilical hernia. Soft, nontender, globular, normoactive bowel sounds, no guarding, no rebound, no hepatosplenomegaly Upper EXTREMITIES: 2+ pulses, warm, well-perfused, no edema. Spooning of distal phalanges noted. Lower Extremities: 1+ DP pulses, PT pulses. 2+ non-pitting edema BL. BL stasis dermatitis, w/ chronic venous stasis, BL hyperpigmentation and hyperkeratotic raised lesions on R anterior prescott. Very mild erythema in R lower ankle on the anterior surface. Prior healed laceration on underneath nail of R big toe. NEUROLOGICAL: Cranial nerves II through XII grossly intact. Normal speech, gait not observed. PSYCH: Normal mood, normal affect. Laboratory Results - last 24 hr CBC, BMP 03/08/17 06:25 03/08/17 06:25 ABG Results ABG pH 7.35 (7.35-7.45) 03/08/17 04:50 ABG pCO2 at Pt Temp 50.1 mmHg (35-45) H 03/08/17 04:50 ABG pO2 at Pt Temp 90.9 mmHg (80-100) 03/08/17 04:50 ABG HCO3 26.6 meq/L (22-26) H 03/08/17 04:50 ABG O2 Sat (Measured) 97.0 % (90-98.9) 03/08/17 04:50 ABG O2 Content 19.0 % vol (15-22) 03/08/17 04:50 ABG Base Excess 0.7 meq/l (-2-2) 03/08/17 04:50 03/07/17 03/07/17 03/07/17 21:55 22:00 22:00 WBC 26.3 H RBC 6.78 H Hgb 14.9 Hct 47.7 MCV 70.3 L MCH 22.0 L MCHC 31.3 L RDW 16.9 H Plt Count 194 MPV 8.8 Neutrophils % [employer] Project [employer] Neutrophils % (Manual) 87.0 H Band Neutrophils % 5.0 Lymphocytes % Business Project [employer]st Lymphocytes % (Manual) 1.0 L Monocytes % Business Project [employer]st Monocytes % (Manual) 7 Eosinophils % Business Project Analyst Basophils % Business Project [employer]st Smudge Cells Few Hypochromia 1+ Polychromasia 1+ Poikilocytosis 1+ Anisocytosis 1+ Microcytosis 1+ PT with INR 13.20 H INR 1.17 H PTT (Actin FS) 27.0 Puncture Site ABG pH ABG pCO2 at Pt Temp ABG pO2 at Pt Temp ABG HCO3 ABG O2 Sat (Measured) ABG O2 Content ABG Base Excess Mauri Test VBG pH POC VBG pCO2 POC VBG pO2 Mixed VBG HCO3 Carboxyhemoglobin Methemoglobin O2 Delivery Device Oxygen Flow Rate PEEP Sodium Potassium Chloride Carbon Dioxide Anion Gap BUN Creatinine Creat Clearance w eGFR Random Glucose Lactic Acid Calcium Phosphorus Magnesium Total Bilirubin AST ALT Alkaline Phosphatase Creatine Kinase Creatine Kinase Index CK-MB (CK-2) Troponin I B-Natriuretic Peptide 637.81 H Total Protein Albumin Urine Color Urine Appearance Urine pH Ur Specific [place] Urine Protein Urine Glucose (UA) Urine Ketones Urine Blood Urine Nitrite Urine Bilirubin Urine Urobilinogen Urine WBC (Auto) Urine RBC (Auto) Ur Epithelial Cells Urine Bacteria Hyaline Casts Urine Mucus U Random Total Protein Ur Random Sodium Ur Random Potassium Ur Random Chloride Urine Creatinine Protein/Creatinin Ratio Blood Type Antibody Screen 03/07/17 03/07/17 03/07/17 22:00 22:00 22:40 WBC RBC Hgb Hct MCV MCH MCHC RDW Plt Count MPV Neutrophils % Neutrophils % (Manual) Band Neutrophils % Lymphocytes % Lymphocytes % (Manual) Monocytes % Monocytes % (Manual) Eosinophils % Basophils % Smudge Cells Hypochromia Polychromasia Poikilocytosis Anisocytosis Microcytosis PT with INR INR PTT (Actin FS) Puncture Site ABG pH ABG pCO2 at Pt Temp ABG pO2 at Pt Temp ABG HCO3 ABG O2 Sat (Measured) ABG O2 Content ABG Base Excess Mauri Test VBG pH POC VBG pCO2 POC VBG pO2 Mixed VBG HCO3 Carboxyhemoglobin Methemoglobin O2 Delivery Device Oxygen Flow Rate PEEP Sodium 137 Potassium 4.2 Chloride 98 Carbon Dioxide 26 Anion Gap 13 BUN 34 H Creatinine 2.0 H Creat Clearance w eGFR 34.37 Random Glucose 118 H Lactic Acid Calcium 9.3 Phosphorus Magnesium Total Bilirubin 0.9 AST 27 ALT 29 Alkaline Phosphatase 77 Creatine Kinase 316 H Creatine Kinase Index 0.5 CK-MB (CK-2) 1.772 Troponin I 0.08 H B-Natriuretic Peptide Total Protein 7.6 Albumin 4.1 Urine Color Yellow Urine Appearance Clear Urine pH 6.0 Ur Specific [place] 1.015 Urine Protein 2+ H Urine Glucose (UA) Negative Urine Ketones Trace H Urine Blood Negative Urine Nitrite Negative Urine Bilirubin 1+ H Urine Urobilinogen 0.2 Urine WBC (Auto) 15 Urine RBC (Auto) 1 Ur Epithelial Cells Rare Urine Bacteria Rare Hyaline Casts 7 Urine Mucus Rare U Random Total Protein Ur Random Sodium Ur Random Potassium Ur Random Chloride Urine Creatinine Protein/Creatinin Ratio Blood Type O POSITIVE Antibody Screen Negative 03/07/17 03/08/17 03/08/17 23:17 02:23 04:50 WBC RBC Hgb Hct MCV MCH MCHC RDW Plt Count MPV Neutrophils % Neutrophils % (Manual) Band Neutrophils % Lymphocytes % Lymphocytes % (Manual) Monocytes % Monocytes % (Manual) Eosinophils % Basophils % Smudge Cells Hypochromia Polychromasia Poikilocytosis Anisocytosis Microcytosis PT with INR INR PTT (Actin FS) Puncture Site Left radial ABG pH 7.35 ABG pCO2 at Pt Temp 50.1 H ABG pO2 at Pt Temp 90.9 ABG HCO3 26.6 H ABG O2 Sat (Measured) 97.0 ABG O2 Content 19.0 ABG Base Excess 0.7 Mauri Test Positive VBG pH 7.34 POC VBG pCO2 44.9 POC VBG pO2 40.0 Mixed VBG HCO3 23.4 Carboxyhemoglobin 1.9 Methemoglobin 0.7 O2 Delivery Device Nasal Oxygen Flow Rate 5l PEEP 0.0 Sodium Potassium Chloride Carbon Dioxide Anion Gap BUN Creatinine Creat Clearance w eGFR Random Glucose Lactic Acid 1.6 Calcium Phosphorus Magnesium Total Bilirubin AST ALT Alkaline Phosphatase Creatine Kinase Creatine Kinase Index CK-MB (CK-2) Troponin I B-Natriuretic Peptide Total Protein Albumin Urine Color Urine Appearance Urine pH Ur Specific [place] Urine Protein Urine Glucose (UA) Urine Ketones Urine Blood Urine Nitrite Urine Bilirubin Urine Urobilinogen Urine WBC (Auto) Urine RBC (Auto) Ur Epithelial Cells Urine Bacteria Hyaline Casts Urine Mucus U Random Total Protein Ur Random Sodium Ur Random Potassium Ur Random Chloride Urine Creatinine Protein/Creatinin Ratio Blood Type Antibody Screen 03/08/17 03/08/17 03/08/17 04:50 04:50 06:25 WBC 23.1 H RBC 6.31 H Hgb 13.8 Hct 44.5 MCV 70.5 L MCH 21.9 L MCHC 31.0 L RDW 17.0 H Plt Count 160 MPV 7.9 D Neutrophils % Business Project Analyst Neutrophils % (Manual) Band Neutrophils % Lymphocytes % Business Project Analyst Lymphocytes % (Manual) Monocytes % Business Project Analyst Monocytes % (Manual) Eosinophils % Business Project Analyst Basophils % Business Project Analyst Smudge Cells Hypochromia Polychromasia Poikilocytosis Anisocytosis Microcytosis PT with INR INR PTT (Actin FS) Puncture Site ABG pH ABG pCO2 at Pt Temp ABG pO2 at Pt Temp ABG HCO3 ABG O2 Sat (Measured) ABG O2 Content ABG Base Excess Mauri Test VBG pH POC VBG pCO2 POC VBG pO2 Mixed VBG HCO3 Carboxyhemoglobin Methemoglobin O2 Delivery Device Oxygen Flow Rate PEEP Sodium Potassium Chloride Carbon Dioxide Anion Gap BUN Creatinine Creat Clearance w eGFR Random Glucose Lactic Acid Calcium Phosphorus Magnesium Total Bilirubin AST ALT Alkaline Phosphatase Creatine Kinase Creatine Kinase Index CK-MB (CK-2) Troponin I 0.05 D B-Natriuretic Peptide Total Protein Albumin Urine Color Urine Appearance Urine pH Ur Specific [place] Urine Protein Urine Glucose (UA) Urine Ketones Urine Blood Urine Nitrite Urine Bilirubin Urine Urobilinogen Urine WBC (Auto) Urine RBC (Auto) Ur Epithelial Cells Urine Bacteria Hyaline Casts Urine Mucus U Random Total Protein 220 H Ur Random Sodium 15 Ur Random Potassium 63.0 Ur Random Chloride 12 Urine Creatinine 406.0 H Protein/Creatinin Ratio 0.54 Blood Type Antibody Screen 03/08/17 06:25 WBC RBC Hgb Hct MCV MCH MCHC RDW Plt Count MPV Neutrophils % Neutrophils % (Manual) Band Neutrophils % Lymphocytes % Lymphocytes % (Manual) Monocytes % Monocytes % (Manual) Eosinophils % Basophils % Smudge Cells Hypochromia Polychromasia Poikilocytosis Anisocytosis Microcytosis PT with INR INR PTT (Actin FS) Puncture Site ABG pH ABG pCO2 at Pt Temp ABG pO2 at Pt Temp ABG HCO3 ABG O2 Sat (Measured) ABG O2 Content ABG Base Excess Mauri Test VBG pH POC VBG pCO2 POC VBG pO2 Mixed VBG HCO3 Carboxyhemoglobin Methemoglobin O2 Delivery Device Oxygen Flow Rate PEEP Sodium 135 L Potassium 4.3 Chloride 97 L Carbon Dioxide 27 Anion Gap 11 BUN 40 H Creatinine 3.0 H D Creat Clearance w eGFR 21.53 Random Glucose 122 H Lactic Acid Calcium 8.6 Phosphorus 5.7 H Magnesium 1.8 Total Bilirubin 0.9 AST 24 ALT 27 Alkaline Phosphatase 67 Creatine Kinase Creatine Kinase Index CK-MB (CK-2) Troponin I B-Natriuretic Peptide Total Protein 7.1 Albumin 3.6 Urine Color Urine Appearance Urine pH Ur Specific [place] Urine Protein Urine Glucose (UA) Urine Ketones Urine Blood Urine Nitrite Urine Bilirubin Urine Urobilinogen Urine WBC (Auto) Urine RBC (Auto) Ur Epithelial Cells Urine Bacteria Hyaline Casts Urine Mucus U Random Total Protein Ur Random Sodium Ur Random Potassium Ur Random Chloride Urine Creatinine Protein/Creatinin Ratio Blood Type Antibody Screen Active Medications Generic Name Dose Route Start Last Admin Trade Name Freq PRN Reason Stop Dose Admin Albuterol Sulfate 1 amp 03/08/17 02:34 Ventolin 0.083% Nebulizer Soln - NEB Q4H PRN SHORT OF BREATH/WHEEZING Albuterol/Ipratropium 1 amp 03/08/17 06:00 03/08/17 06:29 Duoneb - NEB 1 amp QIDR JALYN Administration Heparin Sodium (Porcine) 5,000 unit 03/08/17 06:00 03/08/17 06:29 Heparin - SQ 5,000 unit TID JALYN Administration Vancomycin HCl 1,500 mg/ 500 mls @ 250 mls/hr 03/08/17 08:31 Dextrose IVPB 03/08/17 10:30 ONCE ONE Protocol Methylprednisolone Sodium Succinate 60 mg 03/08/17 10:00 Solu-Medrol - IVPUSH BID JALYN Montelukast Sodium 10 mg 03/08/17 22:00 Singulair - PO HS JALYN Sodium Chloride 1,000 ml 03/07/17 21:12 03/07/17 22:38 Normal Saline - IV 1,000 ml Q20M PRN Administration MAP<65mm Hg OR SBP <90 Microbiology 03/07/17 22:00 Nasopharyngeal Swab Influenza Types A,B Antigen (LINETTE) - Final 03/07/17 22:00 Nasopharyngeal Swab - Final CXR 03/07 - Enlargement of the cardiac silhouette, mild to moderate pulmonary vascular congestion and possible small left pleural effusion versus nonspecific pleural thickening. Please correlate clinically for CHF exacerbation. No definite airspace consolidation or other opacity to suggest pneumonia. Bibasilar subsegmental atelectasis. LE US - 03/08 - There is no evidence of deep venous thrombosis within the common , deep and superficial femoral veins, as well as the popliteal and posterior tibial veins. The greater saphenous veins are also patent. These veins are fully compressible, as well. Arterial LE doppler 03/08 - Mild BL atherosclerotic dz. No evidence of hemodynamically significant occlusive disease. ECHO 03/08 - Moderate bi-atrial dilatation. Mild MR, moderate TR. LV EF normal, grossly normal appearing. EKG 03/07 - Sinus tachy rate 110. RBBB. Possible LAE. ASSESSMENT/PLAN: 61 yo man w/ pmh of COPD (on home O2 PRN), CHF, GAY, chronic BL lymphedema who presented to the ED with fevers/chills, noted to be acutely delirious by sister , currently being tx for sepsis secondary to R LE cellulitis. #Sepsis secondary to suspected R LE cellulitis - Fever of 102.1, WBC of 26 on steroids on presentation. No other infectious symptoms. Hypotensive to 70s overnight - Vanc/Zosyn for empiric coverage pending cultures - HIV test negative - f/u blood, urine, sputum cx's - ID following. Recs appreciated. - IVFs - Lactate 1.6 on admission - Maintain MAP of >65. Bolus 500cc NS if needed #Possible Acute on Chronic CHF exacerbation - BNP 637 today. Echo w/ preserved EF 67%, LV function - Cardiology consulted. - Holding lasix for now given Cr. Can give if clinically indicated. - Will require outpt stress test. - ASA 81mg - Cardiac monitoring #COPD - On home O2 PRN, chronic cough. ABG 7.35/50/90/26 - O2 tx as needed. Maintain sat >92% - D/c prednisone - ventolin neb Q4h PRN - Singulair 10mg PO daily - Duoneb QIDR - Possible chest CT per pulm - Pulm following #LAWANDA - Decreased urine Na (15). Cr increasing from 2.4 -> 3.0 this AM - IVFs - Trend Cr - f/u Renal U/S #Elevated Troponins - 0.08 -> 0.05. CK index normal - Monitor for signs of ischemia #PVD- arterial dopplers + for PVD - Consult vascular surgery - Will require outpt f/u #PPX Heparin subQ FEN: Fluids: NS 100 cc Electrolytes: Daily BMP, monitor cr Nutrition: Cardiac diet dispo: telemetry for further monitoring Plan discussed with attending, Dr. Carlin Mckeon, PGY1 Visit type - Emergency Visit Emergency Visit: Yes ED Registration Date: 03/08/17 Care time: The patient presented to the Emergency Department on the above date and was hospitalized for further evaluation of their emergent condition. - New Patient This patient is new to me today: Yes Date on this admission: 03/08/17 - Critical Care Critical Care patient: No
[2017-03-08 09:20] LABS: URINE LEUK ESTERASE TRACE (NEGATIVE)
[2017-03-08] MEDS ORDERED: CLINDAMYCIN HCL 300 MG CAPSULE PO SCH (09:30)
[2017-03-08] MEDS ORDERED: methylPREDNISolone NA SUCC 40 MG/1 ML VIAL IVPUSH SCH ×3 (10:00)
[2017-03-08] MEDS ORDERED: AMPICILLIN NA/SULBACTAM NA 1.5 GM in SODIUM CHLORIDE 100 ML IVPB SCH (10:00)
--- NOTE | 2017-03-08 10:04 | EKG ---
Test Reason : Blood Pressure : / mmHG Vent. Rate : 112 BPM Atrial Rate : 112 BPM P-R Int : 112 ms QRS Dur : 108 ms QT Int : 340 ms P-R-T Axes : 072 164 036 degrees QTc Int : 464 ms POOR DATA QUALITY, INTERPRETATION MAY BE ADVERSELY AFFECTED SINUS TACHYCARDIA POSSIBLE LEFT ATRIAL ENLARGEMENT INCOMPLETE RIGHT BUNDLE BRANCH BLOCK LEFT POSTERIOR FASCICULAR BLOCK ABNORMAL ECG NO PREVIOUS ECGS AVAILABLE Confirmed by CLARENCE LOZOYA, CINDY ([id number]) on 03/08/2017 10:03:38 AM Referred By: Confirmed By:CINDY LIMA MD
[2017-03-08] MEDS ORDERED: ASPIRIN 81 MG CHEWABLE TABLETS ONE (10:05)
[2017-03-08] MEDS: ASPIRIN COATED 81 MG TABLET.EC PO SCH (10:08)
[2017-03-08] MEDS: SODIUM CHLORIDE 1,000 ML IV SCH (10:08)
[2017-03-08 10:55] LABS: HIV 1 & 2 AB NEGATIVE; HIV 1 AGp24 NEGATIVE
[2017-03-08] MEDS ORDERED: VANCOMYCIN 1,500 MG in DEXTROSE 5%-WATER - 500 ML IVPB ONE (11:00)
[2017-03-08] MEDS: PIPERACILLIN/TAZOB 3.375 GM 50 ML IVPB SCH ×2 (11:36→19:06)
--- NOTE | 2017-03-08 11:57 | CON.CARD ---
Consult Consult Specialty:: Cardiology Reason for Consultation:: sob - History of Present Illness History of Present Illness: The patient is a 61 year old male, with a significant past medical history of COPD, collapsed left lung, who presents to the emergency department with shortness of breath and 104 degree fever. Patient states that he is currently on oxygen and has a nebulizer. He recently saw the ENT to see if he was allergic to penicillin since it runs in the family. While he was there he was given the pneumonia shot. This morning he began experiencing nasal congestion so he tried flushing it out with warm water. He states that clots of blood began to pour out and subsided for 1 hour. He states that he took 2 Tylenol around 5pm today. He denies any recent chills, headache or dizziness. He denies any recent nausea , vomit, diarrhea or constipation. He denies any recent chest pain. He denies any recent dysuria, frequency, urgency or hematuria. Allergies: NKA Past surgical history: None reported. Social History: Former smoker (quit 10 yrs ago 4-5 packs) Denies EtOH use and recreational drug use. PCP: Paddy Mendoza [phone] - History Source History Provided By: Patient, Medical Record - Past Medical History Cardio/Vascular: Yes: CHF, HTN Pulmonary: Yes: COPD - Alcohol/Substance Use Hx Alcohol Use: No - Smoking History Smoking history: Unknown if ever smoked Have you smoked in the past 12 months: No Home Medications - Allergies Allergies/Adverse Reactions: Allergies Allergy/AdvReac Type Severity Reaction Status Date / Time No Known Allergies Allergy Verified 03/07/17 21:05 - Home Medications Home Medications: Ambulatory Orders Furosemide [Lasix] 20 mg PO DAILY 03/08/17 Montelukast Sodium [Singulair] 4 mg PO DAILY 03/08/17 Prednisone 10 mg PO ONCE 03/08/17 Review of Systems - Review of Systems Constitutional: reports: Fever Eyes: reports: No Symptoms HENT: reports: No Symptoms Neck: reports: No Symptoms Cardiovascular: reports: Shortness of Breath Respiratory: reports: SOB Gastrointestinal: reports: No Symptoms Genitourinary: reports: No Symptoms Breasts: reports: No Symptoms Reported Musculoskeletal: reports: No Symptoms Integumentary: reports: No Symptoms Neurological: reports: No Symptoms Endocrine: reports: No Symptoms Hematology/Lymphatic: reports: No Symptoms Psychiatric: reports: No Symptoms Vital Signs: Vital Signs Temperature 98.7 F 03/08/17 07:52 Pulse Rate 77 03/08/17 10:15 Respiratory Rate 20 03/08/17 10:15 Blood Pressure 112/76 03/08/17 10:15 O2 Sat by Pulse Oximetry (%) 97 03/08/17 10:15 Constitutional: Yes: Well Nourished, No Distress, Calm Eyes: Yes: WNL, Conjunctiva Clear, EOM Intact HENT: Yes: WNL, Atraumatic, Normocephalic Neck: Yes: WNL, Supple, Trachea Midline Respiratory: Yes: WNL, Regular, CTA Bilaterally Gastrointestinal: Yes: WNL, Normal Bowel Sounds Renal/: Yes: WNL Cardiovascular: Yes: WNL, Regular Rate and Rhythm Musculoskeletal: Yes: WNL Extremities: Yes: Erythema Edema: Yes Integumentary: Yes: WNL Neurological: Yes: WNL, Alert, Oriented ...Motor Strength: WNL Psychiatric: Yes: WNL, Alert, Oriented - Other Data Labs, Other Data: CBC, BMP 03/08/17 06:25 03/08/17 06:25 INR, PTT INR 1.17 (0.82-1.09) H 03/07/17 22:00 Troponin, BNP 03/07/17 03/07/17 03/08/17 21:55 22:00 04:50 Troponin I 0.08 H 0.05 D B-Natriuretic Peptide 637.81 H Troponin, BNP 03/07/17 03/07/17 03/08/17 21:55 22:00 04:50 Troponin I 0.08 H 0.05 D B-Natriuretic Peptide 637.81 H Laboratory Tests 03/07/17 03/07/17 03/07/17 21:55 22:00 22:00 WBC 26.3 H RBC 6.78 H Hgb 14.9 Hct 47.7 MCV 70.3 L MCH 22.0 L MCHC 31.3 L RDW 16.9 H Plt Count 194 MPV 8.8 Total Counted Neutrophils % Sash Repairer Neutrophils % (Manual) 87.0 H Band Neutrophils % 5.0 Lymphocytes % Sash Repairer Lymphocytes % (Manual) 1.0 L Monocytes % Sash Repairer Monocytes % (Manual) 7 Eosinophils % Sash Repairer Basophils % Sash Repairer Smudge Cells Few Hypochromia 1+ Polychromasia 1+ Poikilocytosis 1+ Anisocytosis 1+ Microcytosis 1+ PT with INR 13.20 H INR 1.17 H PTT (Actin FS) 27.0 Puncture Site ABG pH ABG pCO2 at Pt Temp ABG pO2 at Pt Temp ABG HCO3 ABG O2 Sat (Measured) ABG O2 Content ABG Base Excess Mauri Test VBG pH POC VBG pCO2 POC VBG pO2 Mixed VBG HCO3 Carboxyhemoglobin Methemoglobin O2 Delivery Device Oxygen Flow Rate PEEP Sodium Potassium Chloride Carbon Dioxide Anion Gap BUN Creatinine Creat Clearance w eGFR Random Glucose Lactic Acid Calcium Phosphorus Magnesium Total Bilirubin AST ALT Alkaline Phosphatase Creatine Kinase Creatine Kinase Index CK-MB (CK-2) Troponin I B-Natriuretic Peptide 637.81 H Total Protein Albumin Urine Color Urine Appearance Urine pH Ur Specific [place] Urine Protein Urine Glucose (UA) Urine Ketones Urine Blood Urine Nitrite Urine Bilirubin Urine Urobilinogen Ur Leukocyte Esterase Urine WBC (Auto) Urine RBC (Auto) Ur Epithelial Cells Urine Bacteria Hyaline Casts Urine Mucus U Random Total Protein Ur Random Sodium Ur Random Potassium Ur Random Chloride Urine Creatinine Protein/Creatinin Ratio HIV 1&2 Antibody Screen HIV P24 Antigen Blood Type Antibody Screen 03/07/17 03/07/17 03/07/17 22:00 22:00 22:40 WBC RBC Hgb Hct MCV MCH MCHC RDW Plt Count MPV Total Counted Neutrophils % Neutrophils % (Manual) Band Neutrophils % Lymphocytes % Lymphocytes % (Manual) Monocytes % Monocytes % (Manual) Eosinophils % Basophils % Smudge Cells Hypochromia Polychromasia Poikilocytosis Anisocytosis Microcytosis PT with INR INR PTT (Actin FS) Puncture Site ABG pH ABG pCO2 at Pt Temp ABG pO2 at Pt Temp ABG HCO3 ABG O2 Sat (Measured) ABG O2 Content ABG Base Excess Mauri Test VBG pH POC VBG pCO2 POC VBG pO2 Mixed VBG HCO3 Carboxyhemoglobin Methemoglobin O2 Delivery Device Oxygen Flow Rate PEEP Sodium 137 Potassium 4.2 Chloride 98 Carbon Dioxide 26 Anion Gap 13 BUN 34 H Creatinine 2.0 H Creat Clearance w eGFR 34.37 Random Glucose 118 H Lactic Acid Calcium 9.3 Phosphorus Magnesium Total Bilirubin 0.9 AST 27 ALT 29 Alkaline Phosphatase 77 Creatine Kinase 316 H Creatine Kinase Index 0.5 CK-MB (CK-2) 1.772 Troponin I 0.08 H B-Natriuretic Peptide Total Protein 7.6 Albumin 4.1 Urine Color Yellow Urine Appearance Clear Urine pH 6.0 Ur Specific [place] 1.015 Urine Protein 2+ H Urine Glucose (UA) Negative Urine Ketones Trace H Urine Blood Negative Urine Nitrite Negative Urine Bilirubin 1+ H Urine Urobilinogen 0.2 Ur Leukocyte Esterase Trace H Urine WBC (Auto) 15 Urine RBC (Auto) 1 Ur Epithelial Cells Rare Urine Bacteria Rare Hyaline Casts 7 Urine Mucus Rare U Random Total Protein Ur Random Sodium Ur Random Potassium Ur Random Chloride Urine Creatinine Protein/Creatinin Ratio HIV 1&2 Antibody Screen HIV P24 Antigen Blood Type O POSITIVE Antibody Screen Negative 03/07/17 03/08/17 03/08/17 23:17 02:23 04:50 WBC RBC Hgb Hct MCV MCH MCHC RDW Plt Count MPV Total Counted Neutrophils % Neutrophils % (Manual) Band Neutrophils % Lymphocytes % Lymphocytes % (Manual) Monocytes % Monocytes % (Manual) Eosinophils % Basophils % Smudge Cells Hypochromia Polychromasia Poikilocytosis Anisocytosis Microcytosis PT with INR INR PTT (Actin FS) Puncture Site Left radial ABG pH 7.35 ABG pCO2 at Pt Temp 50.1 H ABG pO2 at Pt Temp 90.9 ABG HCO3 26.6 H ABG O2 Sat (Measured) 97.0 ABG O2 Content 19.0 ABG Base Excess 0.7 Mauri Test Positive VBG pH 7.34 POC VBG pCO2 44.9 POC VBG pO2 40.0 Mixed VBG HCO3 23.4 Carboxyhemoglobin 1.9 Methemoglobin 0.7 O2 Delivery Device Nasal Oxygen Flow Rate 5l PEEP 0.0 Sodium Potassium Chloride Carbon Dioxide Anion Gap BUN Creatinine Creat Clearance w eGFR Random Glucose Lactic Acid 1.6 Calcium Phosphorus Magnesium Total Bilirubin AST ALT Alkaline Phosphatase Creatine Kinase Creatine Kinase Index CK-MB (CK-2) Troponin I B-Natriuretic Peptide Total Protein Albumin Urine Color Urine Appearance Urine pH Ur Specific [place] Urine Protein Urine Glucose (UA) Urine Ketones Urine Blood Urine Nitrite Urine Bilirubin Urine Urobilinogen Ur Leukocyte Esterase Urine WBC (Auto) Urine RBC (Auto) Ur Epithelial Cells Urine Bacteria Hyaline Casts Urine Mucus U Random Total Protein Ur Random Sodium Ur Random Potassium Ur Random Chloride Urine Creatinine Protein/Creatinin Ratio HIV 1&2 Antibody Screen HIV P24 Antigen Blood Type Antibody Screen 03/08/17 03/08/17 03/08/17 04:50 04:50 06:25 WBC 23.1 H RBC 6.31 H Hgb 13.8 Hct 44.5 MCV 70.5 L MCH 21.9 L MCHC 31.0 L RDW 17.0 H Plt Count 160 MPV 7.9 D Total Counted 100 Neutrophils % Sash Repairer Neutrophils % (Manual) 79.0 Band Neutrophils % 9.0 Lymphocytes % Sash Repairer Lymphocytes % (Manual) 9.0 D Monocytes % Sash Repairer Monocytes % (Manual) 3 L Eosinophils % Sash Repairer Basophils % Sash Repairer Smudge Cells Hypochromia 2+ Polychromasia Poikilocytosis Anisocytosis Microcytosis 2+ PT with INR INR PTT (Actin FS) Puncture Site ABG pH ABG pCO2 at Pt Temp ABG pO2 at Pt Temp ABG HCO3 ABG O2 Sat (Measured) ABG O2 Content ABG Base Excess Mauri Test VBG pH POC VBG pCO2 POC VBG pO2 Mixed VBG HCO3 Carboxyhemoglobin Methemoglobin O2 Delivery Device Oxygen Flow Rate PEEP Sodium Potassium Chloride Carbon Dioxide Anion Gap BUN Creatinine Creat Clearance w eGFR Random Glucose Lactic Acid Calcium Phosphorus Magnesium Total Bilirubin AST ALT Alkaline Phosphatase Creatine Kinase Creatine Kinase Index CK-MB (CK-2) Troponin I 0.05 D B-Natriuretic Peptide Total Protein Albumin Urine Color Urine Appearance Urine pH Ur Specific [place] Urine Protein Urine Glucose (UA) Urine Ketones Urine Blood Urine Nitrite Urine Bilirubin Urine Urobilinogen Ur Leukocyte Esterase Urine WBC (Auto) Urine RBC (Auto) Ur Epithelial Cells Urine Bacteria Hyaline Casts Urine Mucus U Random Total Protein 220 H Ur Random Sodium 15 Ur Random Potassium 63.0 Ur Random Chloride 12 Urine Creatinine 406.0 H Protein/Creatinin Ratio 0.54 HIV 1&2 Antibody Screen HIV P24 Antigen Blood Type Antibody Screen 03/08/17 03/08/17 06:25 09:30 WBC RBC Hgb Hct MCV MCH MCHC RDW Plt Count MPV Total Counted Neutrophils % Neutrophils % (Manual) Band Neutrophils % Lymphocytes % Lymphocytes % (Manual) Monocytes % Monocytes % (Manual) Eosinophils % Basophils % Smudge Cells Hypochromia Polychromasia Poikilocytosis Anisocytosis Microcytosis PT with INR INR PTT (Actin FS) Puncture Site ABG pH ABG pCO2 at Pt Temp ABG pO2 at Pt Temp ABG HCO3 ABG O2 Sat (Measured) ABG O2 Content ABG Base Excess Mauri Test VBG pH POC VBG pCO2 POC VBG pO2 Mixed VBG HCO3 Carboxyhemoglobin Methemoglobin O2 Delivery Device Oxygen Flow Rate PEEP Sodium 135 L Potassium 4.3 Chloride 97 L Carbon Dioxide 27 Anion Gap 11 BUN 40 H Creatinine 3.0 H D Creat Clearance w eGFR 21.53 Random Glucose 122 H Lactic Acid Calcium 8.6 Phosphorus 5.7 H Magnesium 1.8 Total Bilirubin 0.9 AST 24 ALT 27 Alkaline Phosphatase 67 Creatine Kinase Creatine Kinase Index CK-MB (CK-2) Troponin I B-Natriuretic Peptide Total Protein 7.1 Albumin 3.6 Urine Color Urine Appearance Urine pH Ur Specific [place] Urine Protein Urine Glucose (UA) Urine Ketones Urine Blood Urine Nitrite Urine Bilirubin Urine Urobilinogen Ur Leukocyte Esterase Urine WBC (Auto) Urine RBC (Auto) Ur Epithelial Cells Urine Bacteria Hyaline Casts Urine Mucus U Random Total Protein Ur Random Sodium Ur Random Potassium Ur Random Chloride Urine Creatinine Protein/Creatinin Ratio HIV 1&2 Antibody Screen Negative HIV P24 Antigen Negative Blood Type Antibody Screen Imaging - Results Chest X-ray: Image Reviewed (cm chf) EKG: Image Reviewed (s tachy rbbb rpfb) Problem List - Problems (1) CHF (congestive heart failure) Code(s): I50.9 - HEART FAILURE, UNSPECIFIED Qualifiers: Congestive heart failure type: unspecified congestive heart failure type Congestive heart failure chronicity: unspecified congestive heart failure chronicity Qualified Code(s): I50.9 - Heart failure, unspecified (2) COPD (chronic obstructive pulmonary disease) Code(s): J44.9 - CHRONIC OBSTRUCTIVE PULMONARY DISEASE, UNSPECIFIED Qualifiers: COPD type: emphysema Emphysema type: unspecified Qualified Code(s): J43.9 - Emphysema, unspecified (3) Cellulitis Code(s): L03.90 - CELLULITIS, UNSPECIFIED Qualifiers: Site of cellulitis: mouth Qualified Code(s): K12.2 - Cellulitis and abscess of mouth (4) Fever Code(s): R50.9 - FEVER, UNSPECIFIED Qualifiers: Fever type: unspecified Qualified Code(s): R50.9 - Fever, unspecified (5) Morbid obesity Code(s): E66.01 - MORBID (SEVERE) OBESITY DUE TO EXCESS CALORIES Assessment/Plan cellulitis copd o2 dependent chf cri obesity Plan; iv lasix telemetry abx ischemic w/u prior to discharge after infection clears and stable from pulmonary and ID point of view. dvt plx
--- NOTE | 2017-03-08 15:36 | PN ---
Teaching Attending Note Name of Resident: Hamlet Mckeon ATTENDING PHYSICIAN STATEMENT I saw and evaluated the patient. I reviewed the resident's note and discussed the case with the resident. I agree with the resident's findings and plan as documented. SUBJECTIVE: fever last night . Pt states his SOB is at his base line , and his sputum production is at his base line. He is hypoxic at base line , and has not been wearing his oxygen . reports decreased dark urine LE pain and erythema has worsened . OBJECTIVE: NAD , AAOx3 CV: RRR, no JVD. 2/6 SM at over the precardium. Lungs: decreased breath sounds at bases , no wheezing . otherwise good air entry Abd: obese , coft, NT, ND . NL BS Ext: non pitting edema, with hyperpigmented skin and thick nodular hyperkeratotic lesions . erythema . cool feet with decreased DP ASSESSMENT AND PLAN: 61 y/o man with h/o COPD ( non compliant with home oxygen), GAY, and questionable h/o D CHF who presented with fever , and worsening LE erythema 1- Sepsis due to possibly LE cellulitis . He has no urinary sx, no diarrhea , and no evidence of PNA. No abd pain. He has been hyptensive SBP 70s-90s all night . - Start IVF. - cont Abx. - Follow cultures. 2- H/O COPD : he has no change in his chronic SOB, or sputum production. He is hypoxic at base line , and does not wear his Home O2. Unlikely, he has COPD exacerbation - stop Steroids especially in the setting of sepsis - cont Nebs - cont O2 through NC - monitor resp status . 3- Questionable h/o D CHF : although BNP is slightly elevated , He clinically looks volume depleted and septic Echo noted. unlikely he has CHF exacerbation - cont to monitor while on IVF - will confirm if he is on lasix at home or not. Urine Na indicates not being on Lasix. 4- LAWANDA: prerenal azotemia ( FeNA 0.1 %). - IVF and repeat in am . If cr worsens , then will consider heart failure as a dx - US reviewed. 5- slightly elevated trop : likely demand with no elevated CKmb. EKG with RBBB, and R axis with no ischemic changes. No cp and trop NL now - f/u with card 6- Decreased DP pulses. arterial doppler ordered , no significant stenosis or occlusion but abnormal signal . Can't obtain any vascular study with contrast due to LAWANDA - will obtain Cr base line . previous Echo form PCP office .
[2017-03-08 16:00] LABS: FERRITIN 209.949 ng/ml (16.4-293.9)
--- NOTE | 2017-03-08 16:19 | CON.PULM ---
Consult Consult Specialty:: Pulmonary - History of Present Illness Chief Complaint: Fever History of Present Illness: The patient is a 61 yo m w/ PMH COPD (on home O2 but does not use frequently), obesity, CHF and sleep apnea who presented to the ED c/o worsening SOB, Chills and a subjective fever to 104.2 today. Patient states that when he was feverish , he experienced altered mental status and proceeded to the ED for evaluation. Patient was recently prescribed symbicort 2 weeks ago by his retail field merchandiser and states that after starting this medication, he began to experience nose bleeds as well as shortness of breath and fever. Patient states that whenever he used symbicort in the past, he developed pneumonia shortly after. Patient is on chronic steroids for his COPD at home, but no longer follows with a line installer repairer. 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 A chest xray showed enlarged heart as well as vascular congestion, left pleural effusion and atalectasis. There was no evidence of pneumonia on CXR. Today, patient states that he has had minimal improvement in his breathing and still requires supplemental oxygen to feel comfortable. - History Source History Provided By: Patient Limitations to Obtaining History: No Limitations - Past Medical History Cardio/Vascular: Yes: CHF, HTN Pulmonary: Yes: COPD - Alcohol/Substance Use Hx Alcohol Use: No - Smoking History Smoking history: Unknown if ever smoked Have you smoked in the past 12 months: No Home Medications - Allergies Allergies/Adverse Reactions: Allergies Allergy/AdvReac Type Severity Reaction Status Date / Time No Known Allergies Allergy Verified 03/07/17 21:05 - Home Medications Home Medications: Ambulatory Orders Furosemide [Lasix] 20 mg PO DAILY 03/08/17 Montelukast Sodium [Singulair] 4 mg PO DAILY 03/08/17 Prednisone 10 mg PO ONCE 03/08/17 Review of Systems - Review of Systems Constitutional: reports: Chills, Fever, Weakness HENT: reports: Epistaxis Cardiovascular: reports: Shortness of Breath. denies: Chest Pain, Edema, Palpitations Respiratory: reports: Cough, SOB, SOB on Exertion. denies: Hemoptysis Physical Exam Vital Sings: Vital Signs Temperature 98.7 F 03/08/17 07:52 Pulse Rate 77 03/08/17 10:15 Respiratory Rate 20 03/08/17 10:15 Blood Pressure 112/76 03/08/17 10:15 O2 Sat by Pulse Oximetry (%) 97 03/08/17 10:15 Constitutional: Yes: Well Nourished, No Distress, Calm HENT: Yes: Atraumatic, Normocephalic Neck: Yes: Supple, Trachea Midline Cardiovascular: Yes: Regular Rate and Rhythm, S1, S2. No: JVD, Gallop, Murmur, Rub, S3, S4 Respiratory: Yes: Regular ...Breath Sounds: TEMO Clear, LLL Diminished, RUL Clear, RML Diminished, RLL Diminished Edema: No Neurological: Yes: Alert, Oriented Labs: CBC, BMP 03/08/17 06:25 03/08/17 06:25 ABG Results ABG pH 7.35 (7.35-7.45) 03/08/17 04:50 ABG pCO2 at Pt Temp 50.1 mmHg (35-45) H 03/08/17 04:50 ABG pO2 at Pt Temp 90.9 mmHg (80-100) 03/08/17 04:50 ABG HCO3 26.6 meq/L (22-26) H 03/08/17 04:50 ABG O2 Sat (Measured) 97.0 % (90-98.9) 03/08/17 04:50 ABG O2 Content 19.0 % vol (15-22) 03/08/17 04:50 ABG Base Excess 0.7 meq/l (-2-2) 03/08/17 04:50 Assessment/Plan The patient is a 61 yo m w/ PMH COPD, CHF, GAY, Obesity who came into the ED c/ o fevers, chills and worsening SOB over the past few days. Patient admitted for further workup and possible CHF/COPD exacerbation. #SOB 2/2 COPD exacerbation vs CHF exacerbation r/o pneumonia -Supplemental O2 as tolerated -Albuterol Q4 PRN -Singulair 10mg HS -Duonebs standing -Advise diuresis with Lasix #Subjective fevers possibly 2/2 bacteremia 2/2 LE cellulitis? -f/u BCX, UCX -obtain sputum culture if possible -CT chest -ABX as per ID #[email or web address]; baseline unknown -monitor lytes and renal fxn
--- NOTE | 2017-03-08 16:26 | PN ---
Teaching Attending Note Name of Resident: Elmer Varghese ATTENDING PHYSICIAN STATEMENT I saw and evaluated the patient. I reviewed the resident's note and discussed the case with the resident. I agree with the resident's findings and plan as documented. PULMONARY IMP ACUTE ON CHRONIC HYPOXEMIC/HYPERCAPNEIC RESPIRATORY FAILURE COPD EXACERBATION ADVANCE COPD ON HOME O2 NON-COMPLIANT CHF CELLULITIS CKD PULMONARY HTN ACUTE ON CHRONIC KIDNEY DISEASE MORBID OBESITY LIKELY OSAS PLAN IV ANTIBIOTICS O2 INHALED BRONCHODILATORS LASIX CHEST CT CULTURES MONITOR LYTES,RENAL FUNCTION DR MCPHERSON Problem List - Problems (1) Acute on chronic respiratory failure with hypoxia and hypercapnia Code(s): J96.21 - ACUTE AND CHRONIC RESPIRATORY FAILURE WITH HYPOXIA; J96.22 - ACUTE AND CHRONIC RESPIRATORY FAILURE WITH HYPERCAPNIA (2) CHF (congestive heart failure) Code(s): I50.9 - HEART FAILURE, UNSPECIFIED Qualifiers: Congestive heart failure type: unspecified congestive heart failure type Congestive heart failure chronicity: unspecified congestive heart failure chronicity Qualified Code(s): I50.9 - Heart failure, unspecified (3) COPD (chronic obstructive pulmonary disease) Code(s): J44.9 - CHRONIC OBSTRUCTIVE PULMONARY DISEASE, UNSPECIFIED Qualifiers: COPD type: emphysema Emphysema type: unspecified Qualified Code(s): J43.9 - Emphysema, unspecified (4) Cellulitis Code(s): L03.90 - CELLULITIS, UNSPECIFIED Qualifiers: Site of cellulitis: mouth Qualified Code(s): K12.2 - Cellulitis and abscess of mouth (5) Fever Code(s): R50.9 - FEVER, UNSPECIFIED Qualifiers: Fever type: unspecified Qualified Code(s): R50.9 - Fever, unspecified (6) Morbid obesity Code(s): E66.01 - MORBID (SEVERE) OBESITY DUE TO EXCESS CALORIES (7) Acute on chronic kidney failure Code(s): N17.9 - ACUTE KIDNEY FAILURE, UNSPECIFIED; N18.9 - CHRONIC KIDNEY DISEASE, UNSPECIFIED
[2017-03-08 18:26] VITALS: BMI 46.7
[2017-03-08] MEDS: MONTELUKAST NA 10 MG TABLET PO SCH (23:38)
[2017-03-08] MEDS ORDERED: ACETAMINOPHEN 325 MG TABLET (FP) PO ONE (23:43)
[2017-03-09] MEDS: ALBUTEROL SO4 2.5/IPRATROPIUM 0.5 INH SOL 3 ML VIAL.NEB. NEB SCH ×5 (00:14→23:12)
[2017-03-09] MEDS: PIPERACILLIN/TAZOB 3.375 GM 50 ML IVPB SCH ×3 (04:00→18:06)
[2017-03-09] MEDS: HEPARIN NA (PORCINE) 5,000 UNITS/ML 1ML VIAL SQ SCH ×3 (07:06→21:13)
[2017-03-09 08:40] LABS: ANION GAP 5 (8-16); BASOPHIL 0.3 % (0-2.0); CALCIUM 8.1 mg/dL (8.5-10.1); CO2 30 mmol/L (21-32); CREATININE 1.7 mg/dL (0.7-1.3); EOSINOPHIL 2.6 % (0-4.5); GLUCOSE,RANDOM 113 mg/dL (74-106); MCH 22.3 pg (25.7-33.7); MCHC 31.1 g/dl (32.0-35.9); MEAN CELL VOLUME 71.6 fl (80-96); MEAN PLT VOLUME 8.4 fl (7.5-11.1); NEUTROPHILS 81.2 % (42.8-82.8); PLATELET COUNT 148 K/MM3 (134-434); RDW 17.4 % (11.9-15.9); WHITE BLOOD COUNT 10.6 K/mm3 (4.0-10.0)
--- NOTE | 2017-03-09 08:54 | PN ---
Physical Exam: SUBJECTIVE: Patient seen and examined by me this AM - Breathing improved. No fevers/chills. States urine output/appearance better. Urinated copiously in ER last night. - Still endorses worsening midline, upper chest pain on exertion. States legs are same - Has had a prior stress test in the past, which patient says he has failed. Prior stress echo from PCP notable for LAD defect, however pt did not receive cath at the time. - PCP: Paddy Mendoza [phone] OBJECTIVE: Vital Signs Intake & Output 03/06/17 03/07/17 03/08/17 03/09/17 23:59 23:59 23:59 23:59 Intake Total 470 Balance 470 Weight 158.757 kg 156.489 kg Period Temp Pulse Resp BP Sys/Santiago Pulse Ox Last 24 Hr 98 F-98.8 F 77-100 17-29 106-137/68-94 94-99 GENERAL: The patient is awake, alert, and fully oriented, in no acute distress. HEAD: NCAT EYES: PERRL, extraocular movements intact, sclera anicteric, conjunctiva clear. No ptosis. ENT: Ears normal, nares patent, oropharynx clear without exudates, moist mucous membranes. NECK: Trachea midline, supple. LUNGS: Still with decreased breath sounds at bases, trace upper lung field wheezes, no crackles, no accessory muscle use. HEART: 2/6 systolic murmur best appreciable at LLSB. Regular rate and rhythm, S1 , S2 without murmur, rub or gallop. ABDOMEN: Reducible umbilical hernia. Soft, nontender, globular, normoactive bowel sounds, no guarding, no rebound, no hepatosplenomegaly Upper EXTREMITIES: 2+ pulses, warm, well-perfused, no edema. Spooning of distal phalanges noted. Lower Extremities: 1+ DP pulses, PT pulses. 2+ non-pitting edema BL. BL stasis dermatitis, w/ chronic venous stasis, BL hyperpigmentation and hyperkeratotic raised lesions on R anterior prescott. Very mild erythema in R lower ankle on the anterior surface. Prior healed laceration on underneath nail of R big toe. NEUROLOGICAL: Cranial nerves II through XII grossly intact. Normal speech, gait not observed. PSYCH: Normal mood, normal affect. Laboratory Results - last 24 hr CBC, BMP 03/09/17 07:40 03/09/17 07:40 03/07/17 03/08/17 03/08/17 22:40 02:23 04:50 WBC RBC Hgb Hct MCV MCH MCHC RDW Plt Count MPV Neutrophils % Lymphocytes % Monocytes % Eosinophils % Basophils % Sodium Potassium Chloride Carbon Dioxide Anion Gap BUN Creatinine Random Glucose Lactic Acid Cancelled Calcium Ferritin 209.949 Troponin I 0.05 D Ur Leukocyte Esterase Trace H HIV 1&2 Antibody Screen HIV P24 Antigen 03/08/17 03/09/17 03/09/17 09:30 07:40 07:40 WBC 10.6 H D RBC 5.96 H Hgb 13.3 Hct 42.7 MCV 71.6 L MCH 22.3 L MCHC 31.1 L RDW 17.4 H Plt Count 148 MPV 8.4 Neutrophils % 81.2 Lymphocytes % 7.2 L Monocytes % 8.7 Eosinophils % 2.6 Basophils % 0.3 Sodium 137 Potassium 4.4 Chloride 102 Carbon Dioxide 30 Anion Gap 5 L BUN 32 H Creatinine 1.7 H D Random Glucose 113 H Lactic Acid Calcium 8.1 L Ferritin Troponin I Ur Leukocyte Esterase HIV 1&2 Antibody Screen Negative HIV P24 Antigen Negative Active Medications Generic Name Dose Route Start Last Admin Trade Name Freq PRN Reason Stop Dose Admin Albuterol Sulfate 1 amp 03/08/17 02:34 Ventolin 0.083% Nebulizer Soln - NEB Q4H PRN SHORT OF BREATH/WHEEZING Albuterol/Ipratropium 1 amp 03/08/17 06:00 03/09/17 07:19 Duoneb - NEB 1 amp QIDR JALYN Administration Aspirin 81 mg 03/08/17 10:00 03/08/17 10:08 Ecotrin - PO 81 mg DAILY JALYN Administration Heparin Sodium (Porcine) 5,000 unit 03/08/17 06:00 03/09/17 07:06 Heparin - SQ 5,000 unit TID JALYN Administration Piperacillin/Tazobactam/Dextrose 50 mls @ 100 mls/hr 03/08/17 11:00 03/09/17 04:00 Zosyn 3.375gm Ivpb (Premix) IVPB 100 mls/hr Q8H-IV JALYN Administration Protocol Sodium Chloride 1,000 mls @ 100 mls/hr 03/08/17 09:30 03/08/17 10:08 Normal Saline - IV 100 mls/hr ASDIR JALYN Administration Montelukast Sodium 10 mg 03/08/17 22:00 03/08/17 23:38 Singulair - PO 10 mg HS JALYN Administration Microbiology 03/07/17 22:00 Blood - Peripheral Venous Blood Culture - Preliminary Pending Organism 03/07/17 22:00 Blood - Peripheral Venous Blood Culture - Preliminary NO GROWTH OBTAINED AFTER 24 HOURS, INCUBATION TO CONTINUE FOR 4 DAYS. 03/07/17 22:00 Nasopharyngeal Swab Influenza Types A,B Antigen (LINETTE) - Final 03/07/17 22:00 Nasopharyngeal Swab - Final CXR 03/07 - Enlargement of the cardiac silhouette, mild to moderate pulmonary vascular congestion and possible small left pleural effusion versus nonspecific pleural thickening. Please correlate clinically for CHF exacerbation. No definite airspace consolidation or other opacity to suggest pneumonia. Bibasilar subsegmental atelectasis. LE US - 03/08 - There is no evidence of deep venous thrombosis within the common , deep and superficial femoral veins, as well as the popliteal and posterior tibial veins. The greater saphenous veins are also patent. These veins are fully compressible, as well. Arterial LE doppler 03/08 - Mild BL atherosclerotic dz. No evidence of hemodynamically significant occlusive disease. ECHO 03/08 - Moderate bi-atrial dilatation. Mild MR, moderate TR. LV EF normal, grossly normal appearing. EKG 03/07 - Sinus tachy rate 110. RBBB. Possible LAE. Renal U/S 03/08 - ASSESSMENT/PLAN: 61 yo man w/ pmh of COPD (on home O2 PRN), CHF, GAY, chronic BL lymphedema who presented to the ED with fevers/chills, noted to be acutely delirious by sister , currently being tx for sepsis secondary to R LE cellulitis. #Sepsis secondary to suspected R LE cellulitis - Afebrile now. WBC decreased from 26 -> 10.6. No other infectious symptoms. Stable BPs. - Day 3 of Vanc/Zosyn for empiric coverage pending cultures. F/u w/ ID regarding abx choice. - HIV test negative - urine, sputum cx's neg to date - Blood cx + coag neg staph in 1/4 bottles. likely contaminate - ID following. Recs appreciated. - IVFs - Lactate 1.6 on admission - Maintain MAP of >65. Bolus 500cc NS if needed - Trend fever, wbc curve #Possible Acute on Chronic CHF exacerbation - BNP 637 on admission. Echo w/ preserved EF 67%, LV function. Clinically less consistent w/ CHF - Cardiology consulted. Rec appreciated. - Holding lasix for now given Cr. Can give if clinically indicated. Awaiting cardiology recs. - Pt on lasix at home. Self doses, inconsistent. - ASA 81mg - Cardiac monitoring #COPD - On home O2 PRN, chronic cough. ABG 7.35/50/90/26 03/08 - O2 tx as needed. Maintain sat >92% - Pt on doxy at home for chronic COPD - ventolin neb Q4h PRN - Singulair 10mg PO daily - Duoneb QIDR - Possible chest CT per pulm - Pulm following #Possible stable angina - Upper midline chest pain/burning with exertion, prior stress test w/ LAD defect - Per cardiology, recommend [employer] stress test but pt can't lie flat. Plan for transfer for cath directly. - ASA 81mg #LAWANDA (prerenal)- Decreased urine Na (15). Cr downtrending to 3.0 to 1.7 today. - Continue IVFs - Trend Cr - normal kidneys on renal u/s #Elevated Troponins - 0.08 -> 0.05. CK index normal - Monitor for signs of ischemia #PVD- arterial dopplers + for PVD - Consult vascular surgery - Will require outpt f/u #PPX Heparin subQ Zantac 150 PO daily for GI FEN: Fluids: NS 100 cc Electrolytes: Daily BMP, monitor cr Nutrition: Cardiac diet dispo: telemetry for further monitoring Plan discussed with attending, Dr. Carlin Mckeon, PGY1 Visit type - Emergency Visit Emergency Visit: Yes ED Registration Date: 03/08/17 Care time: The patient presented to the Emergency Department on the above date and was hospitalized for further evaluation of their emergent condition. - New Patient This patient is new to me today: No - Critical Care Critical Care patient: No
--- NOTE | 2017-03-09 09:29 | PN ---
Physical Exam: SUBJECTIVE: Patient seen and examined. Pt only complaining of back muscle spasms. Denies fevers, chills, abdominal pain , n/v/d/c, and dysuria. He reports that his legs feel better as is his breathing. OBJECTIVE: Vital Signs Period Temp Pulse Resp BP Sys/Santiago Pulse Ox Last 24 Hr 98 F-98.8 F 77-100 17-29 106-137/68-94 94-99 GENERAL: obese male, awake, alert, and fully oriented, in no acute distress. HEAD: Normal with no signs of trauma. EYES: PERRL, extraocular movements intact, sclera anicteric, conjunctiva clear. No ptosis. ENT: Ears normal, nares patent, oropharynx clear without exudates, moist mucous membranes. NECK: Trachea midline, full range of motion, supple. LUNGS: Breath sounds equal, clear to auscultation bilaterally, no wheezes, no crackles, no accessory muscle use. HEART: Regular rate and rhythm, S1, S2 without murmur, rub or gallop. ABDOMEN: obese, soft, nontender, nondistended, normoactive bowel sounds, no guarding, no rebound, no hepatosplenomegaly, no masses. EXTREMITIES: b/l LE severe edema, chronic venous stasis changes, LLE is warm to touch, RLE is not warm, otherwise no changes compared to yesterday NEUROLOGICAL: Cranial nerves II through XII grossly intact. Normal speech, gait not observed. PSYCH: Normal mood, normal affect. Laboratory Results - last 24 hr 03/08/17 03/08/17 03/08/17 02:23 04:50 09:30 WBC RBC Hgb Hct MCV MCH MCHC RDW Plt Count MPV Neutrophils % Lymphocytes % Monocytes % Eosinophils % Basophils % Sodium Potassium Chloride Carbon Dioxide Anion Gap BUN Creatinine Random Glucose Lactic Acid Cancelled Calcium Ferritin 209.949 Troponin I 0.05 D HIV 1&2 Antibody Screen Negative HIV P24 Antigen Negative 03/09/17 03/09/17 07:40 07:40 WBC 10.6 H D RBC 5.96 H Hgb 13.3 Hct 42.7 MCV 71.6 L MCH 22.3 L MCHC 31.1 L RDW 17.4 H Plt Count 148 MPV 8.4 Neutrophils % 81.2 Lymphocytes % 7.2 L Monocytes % 8.7 Eosinophils % 2.6 Basophils % 0.3 Sodium 137 Potassium 4.4 Chloride 102 Carbon Dioxide 30 Anion Gap 5 L BUN 32 H Creatinine 1.7 H D Random Glucose 113 H Lactic Acid Calcium 8.1 L Ferritin Troponin I HIV 1&2 Antibody Screen HIV P24 Antigen Active Medications Generic Name Dose Route Start Last Admin Trade Name Freq PRN Reason Stop Dose Admin Albuterol Sulfate 1 amp 03/08/17 02:34 Ventolin 0.083% Nebulizer Soln - NEB Q4H PRN SHORT OF BREATH/WHEEZING Albuterol/Ipratropium 1 amp 03/08/17 06:00 03/09/17 07:19 Duoneb - NEB 1 amp QIDR JALYN Administration Aspirin 81 mg 03/08/17 10:00 03/08/17 10:08 Ecotrin - PO 81 mg DAILY JALYN Administration Heparin Sodium (Porcine) 5,000 unit 03/08/17 06:00 03/09/17 07:06 Heparin - SQ 5,000 unit TID JALYN Administration Piperacillin/Tazobactam/Dextrose 50 mls @ 100 mls/hr 03/08/17 11:00 03/09/17 04:00 Zosyn 3.375gm Ivpb (Premix) IVPB 100 mls/hr Q8H-IV JALYN Administration Protocol Sodium Chloride 1,000 mls @ 100 mls/hr 03/08/17 09:30 03/08/17 10:08 Normal Saline - IV 100 mls/hr ASDIR JALYN Administration Montelukast Sodium 10 mg 03/08/17 22:00 03/08/17 23:38 Singulair - PO 10 mg HS JALYN Administration ASSESSMENT/PLAN: 61M w/ hx of multiple episodes of cellulitis, COPD (on home O2), CHF, morbid obesity, and GAY presenting with acute fever. #LE cellulitis w/ bacteremia -afebrile overnight, wbc of 23 --> 10.6 -LLE warm to touch -Bcx: 1 bottle growing gram positive cocci in clusters, likely contaminant -continue vancomycin 1.5g and zosyn -f/u cultures and sensitivities -HIV negative Rest of care per hospitalist team Plan discussed with attending, Dr. De La Cruz. Dispo: We will continue to follow the patient. Thank you for this consultative opportunity. -Douglas Miranda MD PGY1 Visit type - Emergency Visit Emergency Visit: Yes ED Registration Date: 03/08/17 Care time: The patient presented to the Emergency Department on the above date and was hospitalized for further evaluation of their emergent condition. - New Patient This patient is new to me today: No - Critical Care Critical Care patient: No
[2017-03-09] MEDS: ASPIRIN COATED 81 MG TABLET.EC PO SCH (09:40)
[2017-03-09] MEDS: SODIUM CHLORIDE 1,000 ML IV SCH ×2 (09:40→21:39)
--- NOTE | 2017-03-09 10:48 | PN ---
Teaching Attending Note Name of Resident: Elmer Varghese ATTENDING PHYSICIAN STATEMENT I saw and evaluated the patient. I reviewed the resident's note and discussed the case with the resident. I agree with the resident's findings and plan as documented. PULMONARY ALERT,STILL DYSPNEIC WITH MIN EXERTION,C/O BURNING SENSATION IN THE CHEST,+ BLOOD CULTURES GRAM + COCCI IMP ACUTE ON CHRONIC HYPOXEMIC/HYPERCAPNEIC RESPIRATORY FAILURE COPD EXACERBATION ADVANCE COPD ON HOME O2 NON-COMPLIANT CHF CELLULITIS CKD PULMONARY HTN ACUTE ON CHRONIC KIDNEY DISEASE MORBID OBESITY LIKELY OSAS PLAN IV ANTIBIOTICS PER ID O2 INHALED BRONCHODILATORS LASIX CULTURES MONITOR LYTES,RENAL FUNCTION DR MCPHERSON Problem List - Problems (1) Acute on chronic respiratory failure with hypoxia and hypercapnia Code(s): J96.21 - ACUTE AND CHRONIC RESPIRATORY FAILURE WITH HYPOXIA; J96.22 - ACUTE AND CHRONIC RESPIRATORY FAILURE WITH HYPERCAPNIA (2) CHF (congestive heart failure) Code(s): I50.9 - HEART FAILURE, UNSPECIFIED Qualifiers: Congestive heart failure type: unspecified congestive heart failure type Congestive heart failure chronicity: unspecified congestive heart failure chronicity Qualified Code(s): I50.9 - Heart failure, unspecified (3) COPD (chronic obstructive pulmonary disease) Code(s): J44.9 - CHRONIC OBSTRUCTIVE PULMONARY DISEASE, UNSPECIFIED Qualifiers: COPD type: emphysema Emphysema type: unspecified Qualified Code(s): J43.9 - Emphysema, unspecified (4) Cellulitis Code(s): L03.90 - CELLULITIS, UNSPECIFIED Qualifiers: Site of cellulitis: mouth Qualified Code(s): K12.2 - Cellulitis and abscess of mouth (5) Fever Code(s): R50.9 - FEVER, UNSPECIFIED Qualifiers: Fever type: unspecified Qualified Code(s): R50.9 - Fever, unspecified (6) Morbid obesity Code(s): E66.01 - MORBID (SEVERE) OBESITY DUE TO EXCESS CALORIES (7) Acute on chronic kidney failure Code(s): N17.9 - ACUTE KIDNEY FAILURE, UNSPECIFIED; N18.9 - CHRONIC KIDNEY DISEASE, UNSPECIFIED Problem List - Problems (1) Acute on chronic respiratory failure with hypoxia and hypercapnia Code(s): J96.21 - ACUTE AND CHRONIC RESPIRATORY FAILURE WITH HYPOXIA; J96.22 - ACUTE AND CHRONIC RESPIRATORY FAILURE WITH HYPERCAPNIA (2) CHF (congestive heart failure) Code(s): I50.9 - HEART FAILURE, UNSPECIFIED Qualifiers: Congestive heart failure type: unspecified congestive heart failure type Congestive heart failure chronicity: unspecified congestive heart failure chronicity Qualified Code(s): I50.9 - Heart failure, unspecified (3) COPD (chronic obstructive pulmonary disease) Code(s): J44.9 - CHRONIC OBSTRUCTIVE PULMONARY DISEASE, UNSPECIFIED Qualifiers: COPD type: emphysema Emphysema type: unspecified Qualified Code(s): J43.9 - Emphysema, unspecified (4) Cellulitis Code(s): L03.90 - CELLULITIS, UNSPECIFIED Qualifiers: Site of cellulitis: mouth Qualified Code(s): K12.2 - Cellulitis and abscess of mouth (5) Fever Code(s): R50.9 - FEVER, UNSPECIFIED Qualifiers: Fever type: unspecified Qualified Code(s): R50.9 - Fever, unspecified (6) Morbid obesity Code(s): E66.01 - MORBID (SEVERE) OBESITY DUE TO EXCESS CALORIES (7) Acute on chronic kidney failure Code(s): N17.9 - ACUTE KIDNEY FAILURE, UNSPECIFIED; N18.9 - CHRONIC KIDNEY DISEASE, UNSPECIFIED
--- NOTE | 2017-03-09 11:05 | PN ---
Progress Note, Physician Chief Complaint: Pt sitting up at bedside; easily dyspneic; no chest pain. History of Present Illness: The patient is a 61 year old white male, with a significant past medical history of COPD, s/p collapsed left lung, HTN, morbid obesity, sedentary lifestyle, who presents to the emergency department with shortness of breath and 104 degree fever. Patient states that he is currently on oxygen and has a nebulizer. He recently saw the ENT to see if he was allergic to penicillin since it runs in the family. While he was there he was given the pneumonia shot. This morning he began experiencing nasal congestion so he tried flushing it out with warm water. He states that clots of blood began to pour out and subsided for 1 hour. He states that he took 2 Tylenol around 5pm today. He denies any recent chills, headache or dizziness. He denies any recent nausea , vomit, diarrhea or constipation. He denies any recent chest pain. He denies any recent dysuria, frequency, urgency or hematuria. Allergies: NKA Past surgical history: None reported. Social History: Former smoker (quit 10 yrs ago 4-5 packs) Denies EtOH use and recreational drug use. PCP: Paddy Mendoza [phone] - Current Medication List Current Medications: Active Medications Albuterol Sulfate (Ventolin 0.083% Nebulizer Soln -) 1 amp NEB Q4H PRN PRN Reason: SHORT OF BREATH/WHEEZING Albuterol/Ipratropium (Duoneb -) 1 amp NEB QIDR [facility] Last Admin: 03/09/17 07:19 Dose: 1 amp Aspirin (Ecotrin -) 81 mg PO DAILY [facility] Last Admin: 03/09/17 09:40 Dose: 81 mg Heparin Sodium (Porcine) (Heparin -) 5,000 unit SQ TID [facility] Last Admin: 03/09/17 07:06 Dose: 5,000 unit Piperacillin/Tazobactam/Dextrose (Zosyn 3.375gm Ivpb (Premix)) 50 mls @ 100 mls /hr IVPB Q8H-IV JALYN PRN Reason: Protocol Last Admin: 03/09/17 09:41 Dose: 100 mls/hr Sodium Chloride (Normal Saline -) 1,000 mls @ 100 mls/hr IV ASDIR [facility] Last Admin: 03/09/17 09:40 Dose: Not Given Montelukast Sodium (Singulair -) 10 mg PO HS [facility] Last Admin: 03/08/17 23:38 Dose: 10 mg Ranitidine HCl (Zantac -) 150 mg PO DAILY [facility] - Objective Vital Signs: Vital Signs Temperature 98.2 F 03/09/17 08:05 Pulse Rate 88 03/09/17 08:05 Respiratory Rate 16 03/09/17 08:05 Blood Pressure 128/60 03/09/17 08:05 O2 Sat by Pulse Oximetry (%) 96 03/08/17 22:00 Constitutional: Yes: Anxious Eyes: Yes: WNL HENT: Yes: WNL Neck: Yes: WNL Cardiovascular: Yes: Regular Rate and Rhythm, S1, S2, S4 Gastrointestinal: Yes: Abdomen, Obese ...Rectal Exam: Yes: Deferred Genitourinary: No: Anuria Musculoskeletal: Yes: Joint Stiffness Extremities: Yes: Cool Edema: Yes Edema: LLE: Trace, RLE: Trace Peripheral Pulses WNL: Yes Integumentary: Yes: Venous Stasis Changes, Other (dry, flaking skin extensively over both LEs to knees, and elbows; ?hx psoriasis) Labs: CBC, BMP 03/09/17 07:40 03/09/17 07:40 INR, PTT INR 1.17 (0.82-1.09) H 03/07/17 22:00 - ....Imaging EKG: Image Reviewed (Sinus tachycardia) Other: Image Reviewed (telemetry: NSR; periods of sinus tachycardia) Problem List - Problems (1) Acute on chronic kidney failure Assessment/Plan: improved BUN/Cr with hydration. Code(s): N17.9 - ACUTE KIDNEY FAILURE, UNSPECIFIED; N18.9 - CHRONIC KIDNEY DISEASE, UNSPECIFIED (2) Acute on chronic respiratory failure with hypoxia and hypercapnia Assessment/Plan: f/u with direct service provider. Code(s): J96.21 - ACUTE AND CHRONIC RESPIRATORY FAILURE WITH HYPOXIA; J96.22 - ACUTE AND CHRONIC RESPIRATORY FAILURE WITH HYPERCAPNIA (3) COPD (chronic obstructive pulmonary disease) Code(s): J44.9 - CHRONIC OBSTRUCTIVE PULMONARY DISEASE, UNSPECIFIED Qualifiers: COPD type: emphysema Emphysema type: unspecified Qualified Code(s): J43.9 - Emphysema, unspecified (4) Cellulitis Code(s): L03.90 - CELLULITIS, UNSPECIFIED Qualifiers: Site of cellulitis: mouth Qualified Code(s): K12.2 - Cellulitis and abscess of mouth (5) Fever Code(s): R50.9 - FEVER, UNSPECIFIED Qualifiers: Fever type: unspecified Qualified Code(s): R50.9 - Fever, unspecified (6) Morbid obesity Assessment/Plan: Pt feels he does not overeat. A dietary consult may be of value. Code(s): E66.01 - MORBID (SEVERE) OBESITY DUE TO EXCESS CALORIES (7) CAD (coronary artery disease) Assessment/Plan: hx ? positive stress MIBI 2 yrs ago at [facility]; await records. Code(s): I25.10 - ATHSCL HEART DISEASE OF [place] CORONARY ARTERY W/O ANG PCTRS (8) [place] cardiac risk >20% in next 10 years Assessment/Plan: Statin; f/u lipids. F/u HGBA1c. TSH. Pt says he panics if he has to lie flat or undergo CT scan. Poor candidate for stress dobutamine ECHO (image quality of rest ECHO suboptimal ). Recommend coronary angiogram as outpatient, after completing course of antibiotics and after optimizing renal function. Code(s): Z91.89 - OTH PERSONAL RISK FACTORS, NOT ELSEWHERE CLASSIFIED (9) 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 attack Assessment/Plan: consider psychological counseling. Code(s): F06.4 - ANXIETY DISORDER DUE TO KNOWN PHYSIOLOGICAL CONDITION; F41.0 - PANIC DISORDER [EPISODIC PAROXYSMAL ANXIETY]
--- NOTE | 2017-03-09 11:27 | PN ---
Progress Note, Physician History of Present Illness: Pulmonary Follow up Patient seen and examined. He states he feels better today and his breathing and leg swelling are improved. - Current Medication List Current Medications: Active Medications Albuterol Sulfate (Ventolin 0.083% Nebulizer Soln -) 1 amp NEB Q4H PRN PRN Reason: SHORT OF BREATH/WHEEZING Albuterol/Ipratropium (Duoneb -) 1 amp NEB QIDR [facility] Last Admin: 03/09/17 07:19 Dose: 1 amp Aspirin (Ecotrin -) 81 mg PO DAILY [facility] Last Admin: 03/09/17 09:40 Dose: 81 mg Heparin Sodium (Porcine) (Heparin -) 5,000 unit SQ TID [facility] Last Admin: 03/09/17 07:06 Dose: 5,000 unit Piperacillin/Tazobactam/Dextrose (Zosyn 3.375gm Ivpb (Premix)) 50 mls @ 100 mls /hr IVPB Q8H-IV JALYN PRN Reason: Protocol Last Admin: 03/09/17 09:41 Dose: 100 mls/hr Sodium Chloride (Normal Saline -) 1,000 mls @ 100 mls/hr IV ASDIR [facility] Last Admin: 03/09/17 09:40 Dose: Not Given Montelukast Sodium (Singulair -) 10 mg PO HS [facility] Last Admin: 03/08/17 23:38 Dose: 10 mg Ranitidine HCl (Zantac -) 150 mg PO DAILY [facility] - Objective Vital Signs: Vital Signs Temperature 98.2 F 03/09/17 08:05 Pulse Rate 88 03/09/17 08:05 Respiratory Rate 16 03/09/17 08:05 Blood Pressure 128/60 03/09/17 08:05 O2 Sat by Pulse Oximetry (%) 96 03/08/17 22:00 Constitutional: Yes: Well Nourished, No Distress, Calm Cardiovascular: Yes: Regular Rate and Rhythm, Murmur (2/5 systolic murmur heard best at the left sternal border), S1, S2. No: Bruit, JVD, Gallop, Rub, S3, S4 Respiratory: Yes: Regular, CTA Bilaterally Extremities: Yes: Erythema, Other (warmth, swelling and erythema over both lower extremites. Scaling and dryness over both lower extremities.) Edema: Yes Edema: LLE: 3+, RLE: 3+ Integumentary: Yes: Erythema, Rash Neurological: Yes: Alert, Oriented Labs: CBC, BMP 03/09/17 07:40 03/09/17 07:40 INR, PTT INR 1.17 (0.82-1.09) H 03/07/17 22:00 Assessment/Plan The patient is a 61 yo m w/ PMH COPD, CHF, GAY, Obesity who came into the ED c/ o fevers, chills and worsening SOB over the past few days. Patient admitted for further workup and possible CHF/COPD exacerbation. The patient is improving on current treatment. #SOB 2/2 COPD exacerbation vs CHF exacerbation -Supplemental O2 as tolerated -Albuterol Q4 PRN -Singulair 10mg HS -Duonebs standing -Advise diuresis once creatinine improved -Echo showing right ventricular enlargement as well as b/l dilated atria with tricuspid regurg #Subjective fevers possibly 2/2 bacteremia 2/2 LE cellulitis? -UCX negative -BCX growing gram positive cocci in one bottle -sputum culture pending -CT chest advised -ABX as per ID #LAWANDA; baseline unknown -Cr improved today 3.0 -> 1.7 -monitor lytes and renal fxn #likely obstructive sleep apnea -will require outpatient follow up
--- NOTE | 2017-03-09 12:09 | PN ---
Teaching Attending Note Name of Resident: Douglas Miranda ATTENDING PHYSICIAN STATEMENT I saw and evaluated the patient. I reviewed the resident's note and discussed the case with the resident. I agree with the resident's findings and plan as documented. SUBJECTIVE:Vancomycin Zosyn day 2 OBJECTIVE: ASSESSMENT AND PLAN: Microbiology 03/07/17 22:00 Nasopharyngeal Swab Influenza Types A,B Antigen (LINETTE) - Final 03/07/17 22:00 Nasopharyngeal Swab - Final Selected Entries 03/09/17 08:05 Temperature 98.2 F Pulse Rate 88 Respiratory 16 Rate ASsessment Blood Pressure 128/60 Laboratory Tests 03/07/17 03/08/17 03/08/17 22:00 02:23 06:25 WBC 26.3 H Plt Count 194 Lymphocytes % (Manual) 1.0 L BUN 40 H Creatinine 3.0 H D Creat Clearance w eGFR 21.53 Lactic Acid 1.6 AST 24 ALT 27 Alkaline Phosphatase 67 Assessment Fever and cellulitis Improved temp and WBC ! bottle GPC clusters ? contaminant Plan Continue Vancomycin and Zosyn for now pending blood cultures Dorothy LOZOYA Problem List - Problems (1) COPD (chronic obstructive pulmonary disease) Code(s): J44.9 - CHRONIC OBSTRUCTIVE PULMONARY DISEASE, UNSPECIFIED Qualifiers: COPD type: emphysema Emphysema type: unspecified Qualified Code(s): J43.9 - Emphysema, unspecified (2) Cellulitis Code(s): L03.90 - CELLULITIS, UNSPECIFIED Qualifiers: Site of cellulitis: mouth Qualified Code(s): K12.2 - Cellulitis and abscess of mouth (3) Fever Code(s): R50.9 - FEVER, UNSPECIFIED Qualifiers: Fever type: unspecified Qualified Code(s): R50.9 - Fever, unspecified (4) Morbid obesity Code(s): E66.01 - MORBID (SEVERE) OBESITY DUE TO EXCESS CALORIES
[2017-03-09] MEDS ORDERED: VANCOMYCIN 1,500 MG in DEXTROSE 5%-WATER - 500 ML IVPB ONE (13:00)
--- NOTE | 2017-03-09 13:15 | PN ---
Teaching Attending Note Name of Resident: Hamlet Mckeon ATTENDING PHYSICIAN STATEMENT I saw and evaluated the patient. I reviewed the resident's note and discussed the case with the resident. I agree with the resident's findings and plan as documented. SUBJECTIVE: Feels much better . has no SOB. has burning retrosternal CP with exertion. OBJECTIVE: NAD , AAOx3 CV: RRR, no JVD. 2/6 SM all over the precardium. Lungs: good air entry, no wheezes Ext: non pitting edema, with hyperpigmented skin and thick nodular hyperkeratotic lesions . erythema . 2+ DP on R, 1+ on L ASSESSMENT AND PLAN: 61 y/o man with h/o COPD ( non compliant with home oxygen), GAY, and questionable h/o D CHF who presented with fever , and worsening LE erythema 1-Sepsis due to LE cellulitis. leukocytosis improved - COnt IV hysdration - cont Abx. - Blood cx in one bottle, with G + cocci , further identification to follow 2- H/O COPD: Not active . - cont Nebs - cont O2 through NC - monitor resp status . 3- Exertional CP: strong suspicion of anginal sx . d/w Dr. Powell, stress test will be helpful but pt can't tolerate lying flat for test. Plan for a transfer for cath directly 4- H/o D CHF: No signs of acute heart failure. - cont to monitor while on IVF 5- LAWANDA: prerenal azotemia ( FeNA 0.1 %) form volume depletion - Cr responded to IVF . cont IVF 6- Decreased DP pulses. no significant stenosis or occlusion but abnormal signal . Can't obtain any vascular study with contrast due to LAWANDA and plan for Cath. - F/u As out pt - will obtain Cr base line . previous Echo form PCP office , and Last stress resport form [facility] Possible transfer for cath tomorrow
[2017-03-09] MEDS ORDERED: PT OWN MED DRAWER 7, Y5N ONE (17:22)
[2017-03-09] MEDS: MONTELUKAST NA 10 MG TABLET PO SCH (21:13)
[2017-03-10] MEDS ORDERED: PT OWN MED DRAWER 7, Y5N ONE ×2 (01:40→09:16)
[2017-03-10] MEDS: PIPERACILLIN/TAZOB 3.375 GM 50 ML IVPB SCH ×2 (01:46→10:03)
[2017-03-10] MEDS: SODIUM CHLORIDE 1,000 ML IV SCH (06:01)
[2017-03-10] MEDS: HEPARIN NA (PORCINE) 5,000 UNITS/ML 1ML VIAL SQ SCH ×3 (06:02→21:42)
[2017-03-10] MEDS: ALBUTEROL SO4 2.5/IPRATROPIUM 0.5 INH SOL 3 ML VIAL.NEB. NEB SCH ×4 (06:32→23:12)
[2017-03-10 07:05] LABS: BASOPHIL 0.8 % (0-2.0); EOSINOPHIL 3.8 % (0-4.5); MCH 22.5 pg (25.7-33.7); MCHC 31.3 g/dl (32.0-35.9); MEAN CELL VOLUME 71.7 fl (80-96); MEAN PLT VOLUME 8.8 fl (7.5-11.1); NEUTROPHILS 72.9 % (42.8-82.8); PLATELET COUNT 144 K/MM3 (134-434); RDW 17.5 % (11.9-15.9); WHITE BLOOD COUNT 8.2 K/mm3 (4.0-10.0)
[2017-03-10 07:28] LABS: ANION GAP 3 (8-16); CALCIUM 8.1 mg/dL (8.5-10.1); CO2 32 mmol/L (21-32); CREATININE 1.3 mg/dL (0.7-1.3); GLUCOSE,RANDOM 93 mg/dL (74-106)
--- NOTE | 2017-03-10 08:46 | PN ---
Addendum entered and electronically signed by Hamlet Mckeon, RESIDENT 16:03: Subjective: - Mild epistaxis this AM. Still with productive cough. No fevers/chills, N/V, dysuria, N/V, new rashes, peripheral weakness - Went for Ct today. Tolerated laying supine. - Does not want to travel into city for Cath. will require referral by cardiology for cath locally - Still with good OUP. 1800 overnight. No other major events Original Note: Physical Exam: SUBJECTIVE: Patient seen and examined OBJECTIVE: Vital Signs Intake & Output 03/07/17 03/08/17 03/09/17 03/10/17 23:59 23:59 23:59 23:59 Intake Total 3330 2253 Output Total 1800 Balance 1530 2253 Weight 158.757 kg 156.489 kg Period Temp Pulse Resp BP Sys/Santiago Pulse Ox Last 24 Hr 98.5 F-99.0 F 75-91 16-18 107-134/67-90 93-94 GENERAL: The patient is awake, alert, and fully oriented, in no acute distress. HEAD: NCAT EYES: PERRL, extraocular movements intact, sclera anicteric, conjunctiva clear. No ptosis. ENT: Ears normal, nares patent, oropharynx clear without exudates, moist mucous membranes. NECK: Trachea midline, supple. LUNGS: Still with decreased breath sounds at bases, trace upper lung field wheezes, no crackles, no accessory muscle use. HEART: 2/6 systolic murmur best appreciable at LLSB. Regular rate and rhythm, S1 , S2 without murmur, rub or gallop. ABDOMEN: Reducible umbilical hernia. Soft, nontender, globular, normoactive bowel sounds, no guarding, no rebound, no hepatosplenomegaly Upper EXTREMITIES: 2+ pulses, warm, well-perfused, no edema. Spooning of distal phalanges noted. Lower Extremities: 1+ DP pulses, PT pulses. 2+ non-pitting edema BL. BL stasis dermatitis, w/ chronic venous stasis, BL hyperpigmentation and hyperkeratotic raised lesions on R anterior prescott. Very mild erythema in R lower ankle on the anterior surface. Prior healed laceration on underneath nail of R big toe. NEUROLOGICAL: Cranial nerves II through XII grossly intact. Normal speech, gait not observed. PSYCH: Normal mood, normal affect. Laboratory Results - last 24 hr CBC, BMP 03/10/17 06:25 03/10/17 06:25 03/09/17 03/09/17 03/10/17 07:40 07:40 06:25 WBC 10.6 H D RBC 5.96 H Hgb 13.3 Hct 42.7 MCV 71.6 L MCH 22.3 L MCHC 31.1 L RDW 17.4 H Plt Count 148 MPV 8.4 Neutrophils % 81.2 Lymphocytes % 7.2 L Monocytes % 8.7 Eosinophils % 2.6 Basophils % 0.3 Sodium 137 Potassium 4.4 Chloride 102 Carbon Dioxide 30 Anion Gap 5 L BUN 32 H Creatinine 1.7 H D Random Glucose 113 H Calcium 8.1 L Vancomycin Pre-Dose 7.781 03/10/17 03/10/17 06:25 06:25 WBC 8.2 RBC 5.76 H Hgb 12.9 Hct 41.3 MCV 71.7 L MCH 22.5 L MCHC 31.3 L RDW 17.5 H Plt Count 144 MPV 8.8 Neutrophils % 72.9 Lymphocytes % 10.8 D Monocytes % 11.7 H Eosinophils % 3.8 Basophils % 0.8 Sodium 137 Potassium 4.6 Chloride 102 Carbon Dioxide 32 Anion Gap 3 L BUN 24 H D Creatinine 1.3 D Random Glucose 93 Calcium 8.1 L Vancomycin Pre-Dose Active Medications Generic Name Dose Route Start Last Admin Trade Name Freq PRN Reason Stop Dose Admin Acetaminophen 650 mg 03/09/17 19:58 Tylenol - PO Q6H PRN FEVER OR PAIN Albuterol Sulfate 1 amp 03/08/17 02:34 Ventolin 0.083% Nebulizer Soln - NEB Q4H PRN SHORT OF BREATH/WHEEZING Albuterol/Ipratropium 1 amp 03/08/17 06:00 03/10/17 06:32 Duoneb - NEB 1 amp QIDR JALYN Administration Aspirin 81 mg 03/08/17 10:00 03/09/17 09:40 Ecotrin - PO 81 mg DAILY JALYN Administration Heparin Sodium (Porcine) 5,000 unit 03/08/17 06:00 03/10/17 06:02 Heparin - SQ 5,000 unit TID JALYN Administration Piperacillin/Tazobactam/Dextrose 50 mls @ 100 mls/hr 03/08/17 11:00 03/10/17 01:46 Zosyn 3.375gm Ivpb (Premix) IVPB 100 mls/hr Q8H-IV JALYN Administration Protocol Sodium Chloride 1,000 mls @ 100 mls/hr 03/08/17 09:30 03/10/17 06:01 Normal Saline - IV 100 mls/hr ASDIR JALYN Administration Montelukast Sodium 10 mg 03/08/17 22:00 03/09/17 21:13 Singulair - PO 10 mg HS JALYN Administration Ranitidine HCl 150 mg 03/10/17 10:00 Zantac - PO DAILY AJLYN Microbiology 03/07/17 22:00 Blood - Peripheral Venous Blood Culture - Preliminary NO GROWTH OBTAINED AFTER 48 HOURS, INCUBATION TO CONTINUE FOR 3 DAYS. 03/07/17 22:00 Blood - Peripheral Venous Blood Culture - Preliminary Staphylococcus Coagulase Neg 03/08/17 21:40 Sputum - Expectorated Gram Stain - Final 03/07/17 22:40 Urine - Urine Clean Catch Urine Culture - Final 03/07/17 22:00 Nasopharyngeal Swab Influenza Types A,B Antigen (LINETTE) - Final 03/07/17 22:00 Nasopharyngeal Swab - Final CXR 03/07 - Enlargement of the cardiac silhouette, mild to moderate pulmonary vascular congestion and possible small left pleural effusion versus nonspecific pleural thickening. Please correlate clinically for CHF exacerbation. No definite airspace consolidation or other opacity to suggest pneumonia. Bibasilar subsegmental atelectasis. LE US - 03/08 - There is no evidence of deep venous thrombosis within the common , deep and superficial femoral veins, as well as the popliteal and posterior tibial veins. The greater saphenous veins are also patent. These veins are fully compressible, as well. Arterial LE doppler 03/08 - Mild BL atherosclerotic dz. No evidence of hemodynamically significant occlusive disease. ECHO 03/08 - Moderate bi-atrial dilatation. Mild MR, moderate TR. LV EF normal, grossly normal appearing. EKG 03/07 - Sinus tachy rate 110. RBBB. Possible LAE. Renal U/S 03/08 - normal kidneys CT 03/10 - No focal infiltrates or gross pleural Nodules are identified. No enlarged mediastinal or hilar lymph nodes are identified. Borderline cardiomegaly. Calcification of the coronary arteries are present. Included upper abdomen appears unremarkable with nonvisualization of the gallbladder. ASSESSMENT/PLAN: 61 yo man w/ pmh of COPD (on home O2 PRN), CHF, GAY, chronic BL lymphedema who presented to the ED with fevers/chills, noted to be acutely delirious by sister , currently being tx for sepsis secondary to R LE cellulitis. #Sepsis secondary to suspected R LE cellulitis - Afebrile now. WBC 8.2. No other infectious symptoms. Stable BPs. - Switched to Cefazolin IV 2g q8h today per ID. will require one more day of abx per ID - HIV test negative - urine, sputum cx's neg to date - Blood cx + coag neg staph in 04/13 bottles. Likely contaminate - ID following. Recs appreciated. - IVFs - Lactate 1.6 on admission - Maintain MAP of >65. Bolus 500cc NS if needed - Trend fever, wbc curve #Possible Acute on Chronic CHF exacerbation - BNP 637 on admission. Echo w/ preserved EF 67%, LV function. Clinically less consistent w/ CHF - Cardiology consulted. Rec appreciated. - Holding lasix for now given Cr. Can give if clinically indicated. Awaiting cardiology recs. - Pt on lasix at home. Self doses, inconsistent. - ASA 81mg - Cardiac monitoring #COPD - On home O2 PRN, chronic cough. ABG 7.35/50/90/26 03/08 - Pre and post with RT notable for 4L O2 requirement at home. Pt spoke with supplier. Small canister delivered to hospital, tank being delivered to home. - O2 tx as needed. Maintain sat >92% - Pt on doxy at home for chronic COPD per PCP - ventolin neb Q4h PRN - Singulair 10mg PO daily - Duoneb QIDR - CT notable for suspicious nodules. F/u with pulm on further reads/recs - Pulm following #Possible stable angina - Upper midline chest pain/burning with exertion, prior stress test w/ LAD defect -Will receive cardiac cath as outpt. Coordinate with cardiology team for f/u/ outpt referral - ASA 81mg #LAWANDA (prerenal)- Decreased urine Na (15). Cr 1.7 -> 1.4 today. - Continue IVFs - Trend Cr - normal kidneys on renal u/s #Elevated Troponins - 0.08 -> 0.05. CK index normal - Monitor for signs of ischemia #PVD- arterial dopplers + for PVD - Consult vascular surgery - Will require outpt f/u #PPX Heparin subQ Zantac 150 PO daily for GI FEN: Fluids: NS 100 cc Electrolytes: Daily BMP, monitor cr Nutrition: Cardiac diet dispo: telemetry for further monitoring Plan discussed with attending, Dr. Carlin Mckeon, PGY1 Visit type - Emergency Visit Emergency Visit: Yes ED Registration Date: 03/08/17 Care time: The patient presented to the Emergency Department on the above date and was hospitalized for further evaluation of their emergent condition. - New Patient This patient is new to me today: No - Critical Care Critical Care patient: No
--- NOTE | 2017-03-10 08:59 | PN ---
Physical Exam: SUBJECTIVE: Patient seen and examined. No acute events overnight. Pt complaining of sinus headache. Denies fevers, chills, n/v/d/c, SOB, chest pain, dysuria, and worsening leg symptoms. OBJECTIVE: Vital Signs Period Temp Pulse Resp BP Sys/Santiago Pulse Ox Last 24 Hr 98.5 F-99.0 F 75-91 16-18 107-134/67-90 93-94 GENERAL: The patient is awake, alert, and fully oriented, in no acute distress. HEENT: NC, AT, EOMI LUNGS: Breath sounds equal, clear to auscultation bilaterally, no wheezes, no crackles, no accessory muscle use. HEART: Regular rate and rhythm, S1, S2 without murmur, rub or gallop. ABDOMEN: Soft, nontender, nondistended, normoactive bowel sounds, no guarding, no rebound, no hepatosplenomegaly, no masses. EXTREMITIES: severe venous stasis changes to LE. same as yesterday NEUROLOGICAL: Cranial nerves II through XII grossly intact. Normal speech, gait not observed. PSYCH: Normal mood, normal affect. Laboratory Results - last 24 hr 03/10/17 03/10/17 03/10/17 06:25 06:25 06:25 WBC 8.2 RBC 5.76 H Hgb 12.9 Hct 41.3 MCV 71.7 L MCH 22.5 L MCHC 31.3 L RDW 17.5 H Plt Count 144 MPV 8.8 Neutrophils % 72.9 Lymphocytes % 10.8 D Monocytes % 11.7 H Eosinophils % 3.8 Basophils % 0.8 Sodium 137 Potassium 4.6 Chloride 102 Carbon Dioxide 32 Anion Gap 3 L BUN 24 H D Creatinine 1.3 D Random Glucose 93 Calcium 8.1 L Vancomycin Pre-Dose 7.781 Active Medications Generic Name Dose Route Start Last Admin Trade Name Freq PRN Reason Stop Dose Admin Acetaminophen 650 mg 03/09/17 19:58 Tylenol - PO Q6H PRN FEVER OR PAIN Albuterol Sulfate 1 amp 03/08/17 02:34 Ventolin 0.083% Nebulizer Soln - NEB Q4H PRN SHORT OF BREATH/WHEEZING Albuterol/Ipratropium 1 amp 03/08/17 06:00 03/10/17 06:32 Duoneb - NEB 1 amp QIDR JALYN Administration Aspirin 81 mg 11/29/17 10:00 03/09/17 09:40 Ecotrin - PO 81 mg DAILY JALYN Administration Heparin Sodium (Porcine) 5,000 unit 03/08/17 06:00 03/10/17 06:02 Heparin - SQ 5,000 unit TID JALYN Administration Piperacillin/Tazobactam/Dextrose 50 mls @ 100 mls/hr 03/08/17 11:00 03/10/17 01:46 Zosyn 3.375gm Ivpb (Premix) IVPB 100 mls/hr Q8H-IV JALYN Administration Protocol Sodium Chloride 1,000 mls @ 100 mls/hr 03/08/17 09:30 03/10/17 06:01 Normal Saline - IV 100 mls/hr ASDIR JALYN Administration Montelukast Sodium 10 mg 03/08/17 22:00 03/09/17 21:13 Singulair - PO 10 mg HS JALYN Administration Ranitidine HCl 150 mg 03/10/17 10:00 Zantac - PO DAILY JALYN ASSESSMENT/PLAN: 61M w/ hx of multiple episodes of cellulitis, COPD (on home O2), CHF, morbid obesity, and GAY presenting with acute fever. #LE cellulitis w/ bacteremia -afebrile overnight, wbc of 23 --> 10.6 --> 8.2 -Bcx: 1 bottle growing gram positive cocci in clusters, likely contaminant -stop vancomycin and zosyn -start cefazolin 2g q8h -f/u cultures and sensitivities Rest of care per hospitalist team Plan discussed with attending, Dr. De La Cruz. Dispo: We will continue to follow the patient. Thank you for this consultative opportunity. -Douglas Miranda MD PGY1 Visit type - Emergency Visit Emergency Visit: Yes ED Registration Date: 03/08/17 Care time: The patient presented to the Emergency Department on the above date and was hospitalized for further evaluation of their emergent condition. - New Patient This patient is new to me today: No - Critical Care Critical Care patient: No
[2017-03-10] MEDS: ASPIRIN COATED 81 MG TABLET.EC PO SCH (10:03)
[2017-03-10] MEDS: RANITIDINE HCL 150 MG TABLET (FP) PO SCH (10:03)
--- NOTE | 2017-03-10 11:21 | PN ---
Teaching Attending Note Name of Resident: Elmer Varghese ATTENDING PHYSICIAN STATEMENT I saw and evaluated the patient. I reviewed the resident's note and discussed the case with the resident. I agree with the resident's findings and plan as documented PULMONARY ALERT,LESS DYSPNEIC,-CP,AFEBRILE IMP ACUTE ON CHRONIC HYPOXEMIC/HYPERCAPNEIC RESPIRATORY FAILURE IMPROVING COPD EXACERBATION IMPROVING ADVANCE COPD ON HOME O2 NON-COMPLIANT ASHD CHF CELLULITIS ACUTE ON CHRONIC KIDNEY DISEASE IMPROVING PULMONARY HTN MORBID OBESITY LIKELY OSAS BACTEREMIA PLAN CONTINUE IV ANTIBIOTICS PER ID O2 INHALED BRONCHODILATORS LASIX MONITOR LYTES,RENAL FUNCTION CARDIAC CATH OUTPATIENT DR MCPHERSON Problem List - Problems (1) Acute on chronic respiratory failure with hypoxia and hypercapnia Code(s): J96.21 - ACUTE AND CHRONIC RESPIRATORY FAILURE WITH HYPOXIA; J96.22 - ACUTE AND CHRONIC RESPIRATORY FAILURE WITH HYPERCAPNIA (2) CHF (congestive heart failure) Code(s): I50.9 - HEART FAILURE, UNSPECIFIED Qualifiers: Congestive heart failure type: unspecified congestive heart failure type Congestive heart failure chronicity: unspecified congestive heart failure chronicity Qualified Code(s): I50.9 - Heart failure, unspecified (3) COPD (chronic obstructive pulmonary disease) Code(s): J44.9 - CHRONIC OBSTRUCTIVE PULMONARY DISEASE, UNSPECIFIED Qualifiers: COPD type: emphysema Emphysema type: unspecified Qualified Code(s): J43.9 - Emphysema, unspecified (4) Cellulitis Code(s): L03.90 - CELLULITIS, UNSPECIFIED Qualifiers: Site of cellulitis: mouth Qualified Code(s): K12.2 - Cellulitis and abscess of mouth (5) Fever Code(s): R50.9 - FEVER, UNSPECIFIED Qualifiers: Fever type: unspecified Qualified Code(s): R50.9 - Fever, unspecified (6) Morbid obesity Code(s): E66.01 - MORBID (SEVERE) OBESITY DUE TO EXCESS CALORIES (7) Acute on chronic kidney failure Code(s): N17.9 - ACUTE KIDNEY FAILURE, UNSPECIFIED; N18.9 - CHRONIC KIDNEY DISEASE, UNSPECIFIED Problem List - Problems (1) Acute on chronic respiratory failure with hypoxia and hypercapnia Code(s): J96.21 - ACUTE AND CHRONIC RESPIRATORY FAILURE WITH HYPOXIA; J96.22 - ACUTE AND CHRONIC RESPIRATORY FAILURE WITH HYPERCAPNIA (2) CHF (congestive heart failure) Code(s): I50.9 - HEART FAILURE, UNSPECIFIED Qualifiers: Congestive heart failure type: unspecified congestive heart failure type Congestive heart failure chronicity: unspecified congestive heart failure chronicity Qualified Code(s): I50.9 - Heart failure, unspecified (3) COPD (chronic obstructive pulmonary disease) Code(s): J44.9 - CHRONIC OBSTRUCTIVE PULMONARY DISEASE, UNSPECIFIED Qualifiers: COPD type: emphysema Emphysema type: unspecified Qualified Code(s): J43.9 - Emphysema, unspecified (4) Cellulitis Code(s): L03.90 - CELLULITIS, UNSPECIFIED Qualifiers: Site of cellulitis: mouth Qualified Code(s): K12.2 - Cellulitis and abscess of mouth (5) Fever Code(s): R50.9 - FEVER, UNSPECIFIED Qualifiers: Fever type: unspecified Qualified Code(s): R50.9 - Fever, unspecified (6) Morbid obesity Code(s): E66.01 - MORBID (SEVERE) OBESITY DUE TO EXCESS CALORIES (7) Acute on chronic kidney failure Code(s): N17.9 - ACUTE KIDNEY FAILURE, UNSPECIFIED; N18.9 - CHRONIC KIDNEY DISEASE, UNSPECIFIED
--- NOTE | 2017-03-10 11:47 | PN ---
Progress Note, Physician History of Present Illness: Pulmonary Follow up Patient seen and examined. He states he feels better today and his breathing and leg swelling are improved. Patient for CT chest today. - Current Medication List Current Medications: Active Medications Acetaminophen (Tylenol -) 650 mg PO Q6H PRN PRN Reason: FEVER OR PAIN Albuterol Sulfate (Ventolin 0.083% Nebulizer Soln -) 1 amp NEB Q4H PRN PRN Reason: SHORT OF BREATH/WHEEZING Albuterol/Ipratropium (Duoneb -) 1 amp NEB QIDR [facility] Last Admin: 03/10/17 06:32 Dose: 1 amp Aspirin (Ecotrin -) 81 mg PO DAILY [facility] Last Admin: 03/10/17 10:03 Dose: 81 mg Heparin Sodium (Porcine) (Heparin -) 5,000 unit SQ TID [facility] Last Admin: 03/10/17 06:02 Dose: 5,000 unit Piperacillin/Tazobactam/Dextrose (Zosyn 3.375gm Ivpb (Premix)) 50 mls @ 100 mls /hr IVPB Q8H-IV JALYN PRN Reason: Protocol Last Admin: 03/10/17 10:03 Dose: 100 mls/hr Sodium Chloride (Normal Saline -) 1,000 mls @ 100 mls/hr IV ASDIR [facility] Last Admin: 03/10/17 06:01 Dose: 100 mls/hr Montelukast Sodium (Singulair -) 10 mg PO HS [facility] Last Admin: 03/09/17 21:13 Dose: 10 mg Ranitidine HCl (Zantac -) 150 mg PO DAILY [facility] Last Admin: 03/10/17 10:03 Dose: 150 mg - Objective Vital Signs: Vital Signs Temperature 98.4 F 03/10/17 09:00 Pulse Rate 88 03/10/17 09:00 Respiratory Rate 18 03/10/17 09:00 Blood Pressure 140/78 03/10/17 09:00 O2 Sat by Pulse Oximetry (%) 93 L 03/09/17 20:14 Constitutional: Yes: Well Nourished, No Distress, Calm Eyes: Yes: Ptosis HENT: Yes: Atraumatic, Normocephalic Cardiovascular: Yes: Regular Rate and Rhythm, S1, S2. No: JVD, Gallop, Murmur, Rub, S3, S4 Respiratory: Yes: Regular, CTA Bilaterally Edema: Yes Edema: LLE: 3+, RLE: 3+ Integumentary: Yes: Other (dryness and erythema of both lower extremities consistent with chronic cellulitis present on admission.) Labs: CBC, BMP 03/10/17 06:25 03/10/17 06:25 INR, PTT INR 1.17 (0.82-1.09) H 03/07/17 22:00 Assessment/Plan The patient is a 61 yo m w/ PMH COPD, CHF, GAY, Obesity who came into the ED c/ o fevers, chills and worsening SOB over the past few days. Patient admitted for further workup and possible CHF/COPD exacerbation. The patient is improving on current treatment. #SOB 2/2 COPD exacerbation vs CHF exacerbation -Supplemental O2 as tolerated -Albuterol Q4 PRN -Singulair 10mg HS -Duonebs standing -Advise diuresis once creatinine improved -Echo showing right ventricular enlargement as well as b/l dilated atria with tricuspid regurg #Subjective fevers possibly 2/2 bacteremia 2/2 LE cellulitis? -UCX negative -BCX growing coagulase negative staph in one bottle -sputum culture gram stain likely shows contamination; will f/u final report -CT chest advised -ABX as per ID #LAWANDA; baseline unknown -Cr improved today 3.0 -> 1.7 -monitor lytes and renal fxn #likely obstructive sleep apnea -will require outpatient follow up -Spoke w/ Dr. Dey, who will arrange for the patient to have a cardiac cath as an outpatient.
--- NOTE | 2017-03-10 14:40 | PN ---
Teaching Attending Note Name of Resident: Douglas Miranda ATTENDING PHYSICIAN STATEMENT I saw and evaluated the patient. I reviewed the resident's note and discussed the case with the resident. I agree with the resident's findings and plan as documented. SUBJECTIVE: no fevers OBJECTIVE: Vital Signs Period Temp Pulse Resp BP Sys/Santiago Pulse Ox Last 24 Hr 98.4 F-99.0 F 75-112 18-18 107-140/67-78 86-93 cor-rrr lungs decreased bs at bases abd soft,protuberant, NT ext bilateral venous stasis with erythema extending to inner thigh CBC, BMP 03/10/17 06:25 03/10/17 06:25 Microbiology 03/08/17 21:40 Sputum - Expectorated Gram Stain - Final 03/08/17 21:40 Sputum - Expectorated Sputum Culture - Preliminary Pending Organism 03/07/17 22:00 Blood - Peripheral Venous Blood Culture - Preliminary NO GROWTH OBTAINED AFTER 48 HOURS, INCUBATION TO CONTINUE FOR 3 DAYS. 03/07/17 22:00 Blood - Peripheral Venous Blood Culture - Preliminary Staphylococcus Coagulase Neg 03/07/17 22:40 Urine - Urine Clean Catch Urine Culture - Final 03/07/17 22:00 Nasopharyngeal Swab Influenza Types A,B Antigen (LINETTE) - Final 03/07/17 22:00 Nasopharyngeal Swab - Final chest ct no infiltrate ASSESSMENT AND PLAN: cellulitis improving blood culture isolate likely contaminant plan to switch to cefazolin 2 grams q8h to continue treatment for cellulitis copd/osas chf obesity
--- NOTE | 2017-03-10 14:54 | PN ---
Teaching Attending Note Name of Resident: Hamlet Mckeon ATTENDING PHYSICIAN STATEMENT I saw and evaluated the patient. I reviewed the resident's note and discussed the case with the resident. I agree with the resident's findings and plan as documented. SUBJECTIVE: No fever or chills. cont to have ECHOLS. has chronic cough at base line. OBJECTIVE: NAD , AAOx3 CV: RRR, no JVD. 2/6 SM all over the precardium. Lungs: good air entry, no wheezes Ext: non pitting edema, with hyperpigmented skin and thick nodular hyperkeratotic lesions . erythema . 2+ DP on R, 1+ on L ASSESSMENT AND PLAN: 61 y/o man with h/o COPD ( non compliant with home oxygen), GAY, and questionable h/o D CHF who presented with fever , and worsening LE erythema 1-Sepsis due to LE cellulitis. leukocytosis improved - DC IVF -willd/w ID possibility of switching to pO abx as there is no more leukocytosis and no fever - Blood cx in one bottle is contaminant , and sputum cx is likely [place] 2- H/O COPD: Not active . - cont Nebs - cont O2 through NC, pre-post ambulation , needs 4 l with ambulation - CT scan noted 3- Exertional CP: strong suspicion of anginal sx . For cath as out pt . f/u with Dr. Powell 4- H/o D CHF: No signs of acute heart failure. -dc IVF . can resume his lasix in few days as outpt ( 20 mg only ) 5- LAWANDA: prerenal azotemia form volume depletion - resolved 6- Decreased DP pulses. no significant stenosis or occlusion but abnormal signal . Can't obtain any vascular study with contrast due to LAWANDA and plan for Cath. - F/u As out pt Dispo : can dc once ABx are switched to pO , hopefully today declined VNS
[2017-03-10] MEDS: CEFAZOLIN 2 GM/D5W 2 GM/50 ML ML IVPB SCH (17:31)
[2017-03-10] MEDS: MONTELUKAST NA 10 MG TABLET PO SCH (21:42)
[2017-03-11] MEDS: CEFAZOLIN 2 GM/D5W 2 GM/50 ML ML IVPB SCH ×3 (01:39→18:16)
[2017-03-11] MEDS: ACETAMINOPHEN 325 MG TABLET (FP) PO PRN ×2 (05:36→21:21)
[2017-03-11] MEDS: HEPARIN NA (PORCINE) 5,000 UNITS/ML 1ML VIAL SQ SCH ×3 (05:37→21:21)
[2017-03-11] MEDS: ALBUTEROL SO4 2.5/IPRATROPIUM 0.5 INH SOL 3 ML VIAL.NEB. NEB SCH (06:50)
--- NOTE | 2017-03-11 07:26 | PN ---
Progress Note, Physician Chief Complaint: Pt denies chest pain or palpitations. History of Present Illness: The patient is a 61 year old white male, with a significant past medical history of COPD, s/p collapsed left lung, HTN, morbid obesity ?positive stress MIBI at [facility] 2 yrs ago, sedentary lifestyle, who presents to the emergency department with shortness of breath and 104 degree fever. Patient states that he is currently on oxygen and has a nebulizer. He recently saw the ENT to see if he was allergic to penicillin since it runs in the family. While he was there he was given the pneumonia shot. This morning he began experiencing nasal congestion so he tried flushing it out with warm water. He states that clots of blood began to pour out and subsided for 1 hour. He states that he took 2 Tylenol around 5pm today. He denies any recent chills, headache or dizziness. He denies any recent nausea , vomit, diarrhea or constipation. He denies any recent chest pain. He denies any recent dysuria, frequency, urgency or hematuria. Allergies: NKA Past surgical history: None reported. Social History: Former smoker (quit 10 yrs ago 4-5 packs) Denies EtOH use and recreational drug use. PCP: Paddy Mendoza [phone] - Current Medication List Current Medications: Active Medications Acetaminophen (Tylenol -) 650 mg PO Q6H PRN PRN Reason: FEVER OR PAIN Last Admin: 03/11/17 05:36 Dose: 650 mg Albuterol Sulfate (Ventolin 0.083% Nebulizer Soln -) 1 amp NEB Q4H PRN PRN Reason: SHORT OF BREATH/WHEEZING Albuterol/Ipratropium (Duoneb -) 1 amp NEB QIDR [facility] Last Admin: 03/11/17 06:50 Dose: 1 amp Aspirin (Ecotrin -) 81 mg PO DAILY [facility] Last Admin: 03/10/17 10:03 Dose: 81 mg Heparin Sodium (Porcine) (Heparin -) 5,000 unit SQ TID [facility] Last Admin: 03/11/17 05:37 Dose: 5,000 unit Cefazolin Sodium/Dextrose (Ancef 2 Gm Premixed Ivpb -) 2 gm in 50 mls @ 100 mls /hr IVPB Q8H-IV JALYN Last Admin: 03/11/17 01:39 Dose: 100 mls/hr Montelukast Sodium (Singulair -) 10 mg PO HS [facility] Last Admin: 03/10/17 21:42 Dose: 10 mg Ranitidine HCl (Zantac -) 150 mg PO DAILY [facility] Last Admin: 03/10/17 10:03 Dose: 150 mg - Objective Vital Signs: Vital Signs Temperature 98.2 F 03/11/17 05:42 Pulse Rate 88 03/11/17 05:42 Respiratory Rate 20 03/11/17 05:42 Blood Pressure 145/80 03/11/17 05:42 O2 Sat by Pulse Oximetry (%) 91 L 03/10/17 20:39 Constitutional: Yes: Calm Eyes: Yes: WNL HENT: Yes: WNL, Pharyngeal Erythema Cardiovascular: Yes: Murmur (2/6 systolic murmur, LSB-->apex), S1, S2, S4 Respiratory: Yes: Diminished, SOB on Exertion Gastrointestinal: Yes: Abdomen, Obese ...Rectal Exam: Yes: Deferred Genitourinary: Yes: Anuria Breast(s): Yes: WNL Musculoskeletal: Yes: Joint Stiffness, Muscle Weakness Extremities: Yes: Cool Edema: Yes Edema: LLE: Trace, RLE: Trace Peripheral Pulses WNL: Yes Integumentary: Yes: Venous Stasis Changes, Other Neurological: Yes: Alert, Oriented Psychiatric: Yes: Other (anxiety/panic) Labs: CBC, BMP 03/10/17 06:25 INR, PTT INR 1.17 (0.82-1.09) H 03/07/17 22:00 Abnormal Lab Results 03/10/17 03/10/17 06:25 06:25 RBC 5.76 H MCV 71.7 L MCH 22.5 L MCHC 31.3 L RDW 17.5 H Monocytes % 11.7 H Anion Gap 3 L BUN 24 H D Calcium 8.1 L - ....Imaging Other: Image Reviewed (telemetry: NSR; periods of sinus tachycardia) Problem List - Problems (1) Acute on chronic kidney failure Assessment/Plan: improvement in BUN/Cr with hydration continues. Code(s): N17.9 - ACUTE KIDNEY FAILURE, UNSPECIFIED; N18.9 - CHRONIC KIDNEY DISEASE, UNSPECIFIED (2) Acute on chronic respiratory failure with hypoxia and hypercapnia Assessment/Plan: f/u with cellophane tester. Code(s): Ela96.21 - ACUTE AND CHRONIC RESPIRATORY FAILURE WITH HYPOXIA; J96.22 - ACUTE AND CHRONIC RESPIRATORY FAILURE WITH HYPERCAPNIA (3) Cellulitis Code(s): L03.90 - CELLULITIS, UNSPECIFIED Qualifiers: Site of cellulitis: mouth Qualified Code(s): K12.2 - Cellulitis and abscess of mouth (4) Fever Assessment/Plan: Afebrile since 03/07/17. Code(s): R50.9 - FEVER, UNSPECIFIED Qualifiers: Fever type: unspecified Qualified Code(s): R50.9 - Fever, unspecified (5) Morbid obesity Assessment/Plan: Pt feels he does not overeat. A dietary consult may be of value. Code(s): E66.01 - MORBID (SEVERE) OBESITY DUE TO EXCESS CALORIES (6) CAD (coronary artery disease) Assessment/Plan: positive stress MIBI at [facility]. Pt for coronary angiogram as outpatient if remains stable cardiac-ruiz this admission. TNI 0.08-->0.05. EKG: sinus tachycardia; no acute ST-T changes; incomplete RBBB; LPFB. Code(s): I25.10 - ATHSCL HEART DISEASE OF [place] CORONARY ARTERY W/O ANG PCTRS (7) [place] cardiac risk >20% in next 10 years Assessment/Plan: Statin; f/u lipids. F/u HGBA1c. TSH. Pt says he panics if he has to lie flat or undergo CT scan. Poor candidate for stress dobutamine ECHO (image quality of rest ECHO suboptimal ). Recommend coronary angiogram as outpatient, after completing course of antibiotics and after optimizing renal function. 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 Code(s): F06.4 - ANXIETY DISORDER DUE TO KNOWN PHYSIOLOGICAL CONDITION; F41.0 - PANIC DISORDER [EPISODIC PAROXYSMAL ANXIETY]
[2017-03-11 08:06] LABS: SERUM IRON 25 ug/dL (38-169); TOTAL IRON BINDING CAPACITY 301 ug/dL (250-450); UIBC 276 ug/dL (111-343)
[2017-03-11 08:58] LABS: ANION GAP 5 (8-16); CALCIUM 8.6 mg/dL (8.5-10.1); CO2 32 mmol/L (21-32); CREATININE 1.2 mg/dL (0.7-1.3); GLUCOSE,RANDOM 90 mg/dL (74-106)
--- NOTE | 2017-03-11 09:15 | PN ---
Progress Note, Physician History of Present Illness: The patient is a 61 year old male, with a significant past medical history of COPD, collapsed left lung, who presents to the emergency department with shortness of breath and 104 degree fever. Patient states that he is currently on oxygen and has a nebulizer. He recently saw the ENT to see if he was allergic to penicillin since it runs in the family. While he was there he was given the pneumonia shot. This morning he began experiencing nasal congestion so he tried flushing it out with warm water. He states that clots of blood began to pour out and subsided for 1 hour. He states that he took 2 Tylenol around 5pm today. He denies any recent chills, headache or dizziness. He denies any recent nausea , vomit, diarrhea or constipation. He denies any recent chest pain. He denies any recent dysuria, frequency, urgency or hematuria. Allergies: NKA Past surgical history: None reported. Social History: Former smoker (quit 10 yrs ago 4-5 packs) Denies EtOH use and recreational drug use. PCP: Paddy Mendoza [phone] - Current Medication List Current Medications: Active Medications Acetaminophen (Tylenol -) 650 mg PO Q6H PRN PRN Reason: FEVER OR PAIN Last Admin: 03/11/17 05:36 Dose: 650 mg Albuterol Sulfate (Ventolin 0.083% Nebulizer Soln -) 1 amp NEB Q4H PRN PRN Reason: SHORT OF BREATH/WHEEZING Albuterol/Ipratropium (Duoneb -) 1 amp NEB QIDR JALYN Last Admin: 03/11/17 06:50 Dose: 1 amp Aspirin (Ecotrin -) 81 mg PO DAILY [facility] Last Admin: 03/10/17 10:03 Dose: 81 mg Heparin Sodium (Porcine) (Heparin -) 5,000 unit SQ TID JALYN Last Admin: 03/11/17 05:37 Dose: 5,000 unit Cefazolin Sodium/Dextrose (Ancef 2 Gm Premixed Ivpb -) 2 gm in 50 mls @ 100 mls /hr IVPB Q8H-IV JALYN Last Admin: 03/11/17 01:39 Dose: 100 mls/hr Montelukast Sodium (Singulair -) 10 mg PO HS [facility] Last Admin: 03/10/17 21:42 Dose: 10 mg Ranitidine HCl (Zantac -) 150 mg PO DAILY JALYN Last Admin: 03/10/17 10:03 Dose: 150 mg - Objective Vital Signs: Vital Signs Temperature 98.2 F 03/11/17 05:42 Pulse Rate 88 03/11/17 05:42 Respiratory Rate 20 03/11/17 05:42 Blood Pressure 145/80 03/11/17 05:42 O2 Sat by Pulse Oximetry (%) 91 L 03/10/17 20:39 Eyes: Yes: WNL, Conjunctiva Clear, EOM Intact HENT: Yes: WNL, Atraumatic, Normocephalic Neck: Yes: WNL, Supple, Trachea Midline Cardiovascular: Yes: WNL, Regular Rate and Rhythm Respiratory: Yes: WNL, Regular, CTA Bilaterally Gastrointestinal: Yes: WNL, Normal Bowel Sounds Genitourinary: Yes: WNL Musculoskeletal: Yes: WNL Extremities: Yes: Erythema Edema: Yes Integumentary: Yes: WNL Neurological: Yes: WNL, Alert, Oriented ...Motor Strength: WNL Psychiatric: Yes: WNL Labs: CBC, BMP 03/10/17 06:25 03/11/17 05:05 INR, PTT INR 1.17 (0.82-1.09) H 03/07/17 22:00 Problem List - Problems (1) CHF (congestive heart failure) Code(s): I50.9 - HEART FAILURE, UNSPECIFIED Qualifiers: Congestive heart failure type: unspecified congestive heart failure type Congestive heart failure chronicity: unspecified congestive heart failure chronicity Qualified Code(s): I50.9 - Heart failure, unspecified (2) COPD (chronic obstructive pulmonary disease) Code(s): J44.9 - CHRONIC OBSTRUCTIVE PULMONARY DISEASE, UNSPECIFIED Qualifiers: COPD type: emphysema Emphysema type: unspecified Qualified Code(s): J43.9 - Emphysema, unspecified (3) Cellulitis Code(s): L03.90 - CELLULITIS, UNSPECIFIED Qualifiers: Site of cellulitis: mouth Qualified Code(s): K12.2 - Cellulitis and abscess of mouth (4) Fever Code(s): R50.9 - FEVER, UNSPECIFIED Qualifiers: Fever type: unspecified Qualified Code(s): R50.9 - Fever, unspecified (5) Morbid obesity Code(s): E66.01 - MORBID (SEVERE) OBESITY DUE TO EXCESS CALORIES Assessment/Plan - Problems (1) Acute on chronic kidney failure Assessment/Plan: improvement in BUN/Cr with hydration continues. Code(s): N17.9 - ACUTE KIDNEY FAILURE, UNSPECIFIED; N18.9 - CHRONIC KIDNEY DISEASE, UNSPECIFIED (2) Acute on chronic respiratory failure with hypoxia and hypercapnia Assessment/Plan: f/u with treatment coordinator. Code(s): J96.21 - ACUTE AND CHRONIC RESPIRATORY FAILURE WITH HYPOXIA; J96.22 - ACUTE AND CHRONIC RESPIRATORY FAILURE WITH HYPERCAPNIA (3) Cellulitis Code(s): L03.90 - CELLULITIS, UNSPECIFIED Qualifiers: Site of cellulitis: mouth Qualified Code(s): K12.2 - Cellulitis and abscess of mouth (4) Fever Assessment/Plan: Afebrile since 03/07/17. Code(s): R50.9 - FEVER, UNSPECIFIED Qualifiers: Fever type: unspecified Qualified Code(s): R50.9 - Fever, unspecified (5) Morbid obesity Assessment/Plan: Pt feels he does not overeat. A dietary consult may be of value. Code(s): E66.01 - MORBID (SEVERE) OBESITY DUE TO EXCESS CALORIES (6) CAD (coronary artery disease) Assessment/Plan: positive stress MIBI at [facility]. Pt for coronary angiogram as outpatient if remains stable cardiac-ruiz this admission. TNI 0.08-->0.05. EKG: sinus tachycardia; no acute ST-T changes; incomplete RBBB; LPFB. Code(s): I25.10 - ATHSCL HEART DISEASE OF [place] CORONARY ARTERY W/O ANG PCTRS (7) [place] cardiac risk >20% in next 10 years Assessment/Plan: Statin; f/u lipids. F/u HGBA1c. TSH. Pt says he panics if he has to lie flat or undergo CT scan. Poor candidate for stress dobutamine ECHO (image quality of rest ECHO suboptimal ). Recommend coronary angiogram as outpatient, after completing course of antibiotics and after optimizing renal function. 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 Code(s): F06.4 - ANXIETY DISORDER DUE TO KNOWN PHYSIOLOGICAL CONDITION; F41.0 - PANIC DISORDER [EPISODIC PAROXYSMAL ANXIETY]
[2017-03-11] MEDS: ASPIRIN COATED 81 MG TABLET.EC PO SCH (09:25)
[2017-03-11] MEDS: RANITIDINE HCL 150 MG TABLET (FP) PO SCH (09:25)
--- NOTE | 2017-03-11 09:25 | PN ---
Physical Exam: SUBJECTIVE: Patient seen and examined by me this AM - Pt states he is no better than when he came in. Insistent on not leaving, worried that he will decompensate at home. - Feels duonebs are irritating his throat. - Counseled about Cath. Would consider inpt transfer if available to local center. - Persistent ART since admission per pt, not relieved with tylenol. Believes to be sinus infection. focally tender - Endorses general fatigue, no change in cough/SOB or exertional angina. - Denies any fevers/chills, N/V, abdominal pain, diarrhea/constipation, dysuria , new rash or focal neuro symptoms. No dizziness, changes in vision. OBJECTIVE: Vital Signs Intake & Output 03/08/17 03/09/17 03/10/17 03/11/17 23:59 23:59 23:59 23:59 Intake Total 3330 4093 150 Output Total 1800 4600 Balance 1530 -507 150 Weight 156.489 kg Period Temp Pulse Resp BP Sys/Santiago Pulse Ox Last 24 Hr 98.0 F-99.7 F 80-112 18-20 120-149/66-83 86-92 GENERAL: The patient is awake, alert, and fully oriented, in no acute distress. HEAD: NCAT EYES: PERRL, extraocular movements intact, sclera anicteric, conjunctiva clear. No ptosis. ENT: Ears normal, nares patent, oropharynx clear without exudates, moist mucous membranes. NECK: Trachea midline, supple. LUNGS: Still with decreased breath sounds at bases, trace upper lung field wheezes, no crackles, no accessory muscle use. HEART: 2/6 systolic murmur best appreciable at LLSB. Regular rate and rhythm, S1 , S2 without murmur, rub or gallop. ABDOMEN: Reducible umbilical hernia. Soft, nontender, globular, normoactive bowel sounds, no guarding, no rebound, no hepatosplenomegaly Upper EXTREMITIES: 2+ pulses, warm, well-perfused, no edema. Spooning of distal phalanges noted. Lower Extremities: 1+ DP pulses, PT pulses. 2+ non-pitting edema BL. BL stasis dermatitis, w/ chronic venous stasis, BL hyperpigmentation and hyperkeratotic raised lesions on R anterior [place]. Very mild erythema in R lower ankle on the anterior surface. Prior healed laceration on underneath nail of R big toe. NEUROLOGICAL: Cranial nerves II through XII grossly intact. Normal speech, gait not observed. PSYCH: Normal mood, normal affect. Laboratory Results - last 24 hr CBC, BMP 03/10/17 06:25 03/11/17 05:05 03/08/17 03/08/17 03/11/17 15:30 15:30 05:05 Sodium 138 Potassium 4.9 Chloride 101 Carbon Dioxide 32 Anion Gap 5 L BUN 16 D Creatinine 1.2 Random Glucose 90 Calcium 8.6 Iron 25 L TIBC 301 Iron Saturation 8 L Transferrin 245 Active Medications Generic Name Dose Route Start Last Admin Trade Name Freq PRN Reason Stop Dose Admin Acetaminophen 650 mg 03/09/17 19:58 03/11/17 05:36 Tylenol - PO 650 mg Q6H PRN Administration FEVER OR PAIN Albuterol Sulfate 1 amp 03/08/17 02:34 Ventolin 0.083% Nebulizer Soln - NEB Q4H PRN SHORT OF BREATH/WHEEZING Albuterol/Ipratropium 1 amp 03/08/17 06:00 03/11/17 06:50 Duoneb - NEB 1 amp QIDR JALYN Administration Aspirin 81 mg 03/08/17 10:00 03/10/17 10:03 Ecotrin - PO 81 mg DAILY JALYN Administration Heparin Sodium (Porcine) 5,000 unit 03/08/17 06:00 03/11/17 05:37 Heparin - SQ 5,000 unit TID JALYN Administration Cefazolin Sodium/Dextrose 2 gm in 50 mls @ 100 mls/hr 03/10/17 18:00 01:39 Ancef 2 Gm Premixed Ivpb - IVPB 100 mls/hr Q8H-IV JALYN Administration Montelukast Sodium 10 mg 03/08/17 22:00 03/10/17 21:42 Singulair - PO 10 mg HS JALYN Administration Ranitidine HCl 150 mg 03/10/17 10:00 03/10/17 10:03 Zantac - PO 150 mg DAILY JALYN Administration Microbiology 03/07/17 22:00 Blood - Peripheral Venous Blood Culture - Preliminary NO GROWTH OBTAINED AFTER 72 HOURS, INCUBATION TO CONTINUE FOR 2 DAYS. 03/08/17 21:40 Sputum - Expectorated Gram Stain - Final 03/08/17 21:40 Sputum - Expectorated Sputum Culture - Preliminary Pending Organism 03/07/17 22:00 Blood - Peripheral Venous Blood Culture - Preliminary Staphylococcus Coagulase Neg 03/07/17 22:40 Urine - Urine Clean Catch Urine Culture - Final 03/07/17 22:00 Nasopharyngeal Swab Influenza Types A,B Antigen (LINETTE) - Final 03/07/17 22:00 Nasopharyngeal Swab - Final CXR 03/07 - Enlargement of the cardiac silhouette, mild to moderate pulmonary vascular congestion and possible small left pleural effusion versus nonspecific pleural thickening. Please correlate clinically for CHF exacerbation. No definite airspace consolidation or other opacity to suggest pneumonia. Bibasilar subsegmental atelectasis. LE US - 03/08 - There is no evidence of deep venous thrombosis within the common , deep and superficial femoral veins, as well as the popliteal and posterior tibial veins. The greater saphenous veins are also patent. These veins are fully compressible, as well. Arterial LE doppler 03/08 - Mild BL atherosclerotic dz. No evidence of hemodynamically significant occlusive disease. ECHO 03/08 - Moderate bi-atrial dilatation. Mild MR, moderate TR. LV EF normal, grossly normal appearing. EKG 03/07 - Sinus tachy rate 110. RBBB. Possible LAE. Renal U/S 03/08 - normal kidneys CT 03/10 - No focal infiltrates or gross pleural Nodules are identified. No enlarged mediastinal or hilar lymph nodes are identified. Borderline cardiomegaly. Calcification of the coronary arteries are present. Included upper abdomen appears unremarkable with nonvisualization of the gallbladder. Head CT 03/11 - Dilated ventricles w/ suspicion of NPH. No abnormalities in sinuses ASSESSMENT/PLAN: 61 yo man w/ pmh of COPD (on home O2 PRN), CHF, GAY, chronic BL lymphedema who presented to the ED with fevers/chills, noted to be acutely delirious by sister , currently being tx for sepsis secondary to R LE cellulitis. Pt has been improving, with no further infectious symptoms, but has been complaining of exertional angina and well as persistent headaches. Very apprehensive about leaving hospital. #Sepsis secondary to suspected R LE cellulitis - Afebrile now. WBC 8.2. No other infectious symptoms. Stable BPs. - Switched to Cefazolin IV 2g q8h today per ID. will require one more day of abx per ID - HIV test negative - urine, sputum cx's neg to date - Blood cx + coag neg staph in 1/4 bottles. Likely contaminate - Per ID 1-2 more days of IV abx indicated. - ID following. Recs appreciated. - Lactate 1.6 on admission - Maintain MAP of >65. Bolus 500cc NS if needed - Trend fever, wbc curve #Possible Acute on Chronic CHF exacerbation - BNP 637 on admission. Echo w/ preserved EF 67%, LV function. Clinically less consistent w/ CHF - Cardiology consulted. Rec appreciated. - Cont holding lasix. Will resume in a few days after discharge, Cr function normalized. - Pt on lasix at home. Self doses, inconsistent. - ASA 81mg - Cardiac monitoring #COPD - On home O2 PRN, chronic cough. ABG 7.35/50/90/26 03/08 - Pre and post with RT notable for 4L O2 requirement at home. Pt spoke with supplier. Small canister delivered to hospital, tank being delivered to home. - O2 tx as needed. Maintain sat >92% - Pt on doxy at home for chronic COPD per PCP. Not indicated. Will not continue in house. - ventolin neb Q4h PRN - Singulair 10mg PO daily - D/c Duoneb as pt claims they choke him, cause irritation/swelling in his throat - Started on Brovana neb BID per pulm - CT notable for suspicious nodules. F/u with pulm on further reads/recs - Pulm following #Suspicion for NPH/dilated ventricles - Head CT scan findings as noted above. Pt complaining of persistent HAs. No urinary symptoms, normal neuro exams - Serial neuro exams - F/u with neurosurgery #Possible stable angina - Upper midline chest pain/burning with exertion, prior stress test w/ LAD defect -Will receive cardiac cath as outpt. Coordinate with cardiology team for f/u/ outpt referral - ASA 81mg #LAWANDA (prerenal)- Cr 1.2 today. Normal kidneys on renal u/s - Hold IVFs given recovered renal function. - Trend Cr #Prediabetes - HgB A1C 6.8. Blood sugars well controlled since admission. - Will likely benefit from metformin - F/u as outpt w/ PCP - Monitor for hyperglycemia during stay #PVD- arterial dopplers + for PVD - Consult vascular surgery - Will require outpt f/u #PPX Heparin subQ Zantac 150 PO daily for GI FEN: Fluids: NS 100 cc Electrolytes: Daily BMP, monitor cr Nutrition: Cardiac diet dispo: telemetry for further monitoring Plan discussed with attending, Dr. Carlin Mckeon, PGY1 Visit type - Emergency Visit Emergency Visit: Yes ED Registration Date: 03/08/17 Care time: The patient presented to the Emergency Department on the above date and was hospitalized for further evaluation of their emergent condition. - New Patient This patient is new to me today: No - Critical Care Critical Care patient: No
[2017-03-11 09:54] LABS: CHOLESTEROL 283 mg/dL (50-200)
--- NOTE | 2017-03-11 10:40 | PN ---
Progress Note, Physician History of Present Illness: PULMONARY ALERT,FEELING BETTER,LESS DYSPNEIC - Current Medication List Current Medications: Active Medications Acetaminophen (Tylenol -) 650 mg PO Q6H PRN PRN Reason: FEVER OR PAIN Last Admin: 03/11/17 05:36 Dose: 650 mg Albuterol Sulfate (Ventolin 0.083% Nebulizer Soln -) 1 amp NEB Q4H PRN PRN Reason: SHORT OF BREATH/WHEEZING Albuterol/Ipratropium (Duoneb -) 1 amp NEB QIDR [facility] Last Admin: 03/11/17 06:50 Dose: 1 amp Aspirin (Ecotrin -) 81 mg PO DAILY [facility] Last Admin: 03/11/17 09:25 Dose: 81 mg Heparin Sodium (Porcine) (Heparin -) 5,000 unit SQ TID [facility] Last Admin: 03/11/17 05:37 Dose: 5,000 unit Cefazolin Sodium/Dextrose (Ancef 2 Gm Premixed Ivpb -) 2 gm in 50 mls @ 100 mls /hr IVPB Q8H-IV [facility] Last Admin: 03/11/17 09:25 Dose: 100 mls/hr Montelukast Sodium (Singulair -) 10 mg PO HS [facility] Last Admin: 03/10/17 21:42 Dose: 10 mg Ranitidine HCl (Zantac -) 150 mg PO DAILY [facility] Last Admin: 03/11/17 09:25 Dose: 150 mg - Objective Vital Signs: Vital Signs Temperature 98.2 F 03/11/17 05:42 Pulse Rate 88 03/11/17 05:42 Respiratory Rate 20 03/11/17 05:42 Blood Pressure 145/80 03/11/17 05:42 O2 Sat by Pulse Oximetry (%) 91 L 03/10/17 20:39 Constitutional: Yes: Well Nourished, Calm, Obese Eyes: Yes: WNL HENT: Yes: WNL Neck: Yes: WNL Cardiovascular: Yes: Regular Rate and Rhythm, S1, S2 Respiratory: Yes: Diminished Gastrointestinal: Yes: Normal Bowel Sounds, Soft Extremities: Yes: WNL Edema: Yes Labs: CBC, BMP 03/11/17 05:05 INR, PTT INR 1.17 (0.82-1.09) H 03/07/17 22:00 Problem List - Problems (1) Acute on chronic respiratory failure with hypoxia and hypercapnia Code(s): J96.21 - ACUTE AND CHRONIC RESPIRATORY FAILURE WITH HYPOXIA; J96.22 - ACUTE AND CHRONIC RESPIRATORY FAILURE WITH HYPERCAPNIA (2) CHF (congestive heart failure) Code(s): I50.9 - HEART FAILURE, UNSPECIFIED Qualifiers: Congestive heart failure type: unspecified congestive heart failure type Congestive heart failure chronicity: unspecified congestive heart failure chronicity Qualified Code(s): I50.9 - Heart failure, unspecified (3) COPD (chronic obstructive pulmonary disease) Code(s): J44.9 - CHRONIC OBSTRUCTIVE PULMONARY DISEASE, UNSPECIFIED Qualifiers: COPD type: emphysema Emphysema type: unspecified Qualified Code(s): J43.9 - Emphysema, unspecified (4) Cellulitis Code(s): L03.90 - CELLULITIS, UNSPECIFIED Qualifiers: Site of cellulitis: mouth Qualified Code(s): K12.2 - Cellulitis and abscess of mouth (5) Fever Code(s): R50.9 - FEVER, UNSPECIFIED Qualifiers: Fever type: unspecified Qualified Code(s): R50.9 - Fever, unspecified (6) Morbid obesity Code(s): E66.01 - MORBID (SEVERE) OBESITY DUE TO EXCESS CALORIES (7) Acute on chronic kidney failure Code(s): N17.9 - ACUTE KIDNEY FAILURE, UNSPECIFIED; N18.9 - CHRONIC KIDNEY DISEASE, UNSPECIFIED Assessment/Plan PULMONARY ALERT,STILL DYSPNEIC WITH MIN EXERTION,C/O BURNING SENSATION IN THE CHEST,+ BLOOD CULTURES GRAM + COCCI IMP ACUTE ON CHRONIC HYPOXEMIC/HYPERCAPNEIC RESPIRATORY FAILURE IMPROVING COPD EXACERBATION IMPROVING ADVANCE COPD ON HOME O2 NON-COMPLIANT CHF CELLULITIS PULMONARY HTN ACUTE ON CHRONIC KIDNEY DISEASE IMPROVED MORBID OBESITY LIKELY OSAS BACTEREMIA ASHD PLAN IV ANTIBIOTICS PER ID O2 INHALED BRONCHODILATORS MONITOR LYTES,RENAL FUNCTION CARDIAC CATH DR MCPHERSON Problem List - Problems (1) Acute on chronic respiratory failure with hypoxia and hypercapnia Code(s): J96.21 - ACUTE AND CHRONIC RESPIRATORY FAILURE WITH HYPOXIA; J96.22 - ACUTE AND CHRONIC RESPIRATORY FAILURE WITH HYPERCAPNIA (2) CHF (congestive heart failure) Code(s): I50.9 - HEART FAILURE, UNSPECIFIED Qualifiers: Congestive heart failure type: unspecified congestive heart failure type Congestive heart failure chronicity: unspecified congestive heart failure chronicity Qualified Code(s): I50.9 - Heart failure, unspecified (3) COPD (chronic obstructive pulmonary disease) Code(s): J44.9 - CHRONIC OBSTRUCTIVE PULMONARY DISEASE, UNSPECIFIED Qualifiers: COPD type: emphysema Emphysema type: unspecified Qualified Code(s): J43.9 - Emphysema, unspecified (4) Cellulitis Code(s): L03.90 - CELLULITIS, UNSPECIFIED Qualifiers: Site of cellulitis: mouth Qualified Code(s): K12.2 - Cellulitis and abscess of mouth (5) Fever Code(s): R50.9 - FEVER, UNSPECIFIED Qualifiers: Fever type: unspecified Qualified Code(s): R50.9 - Fever, unspecified (6) Morbid obesity Code(s): E66.01 - MORBID (SEVERE) OBESITY DUE TO EXCESS CALORIES (7) Acute on chronic kidney failure Code(s): N17.9 - ACUTE KIDNEY FAILURE, UNSPECIFIED; N18.9 - CHRONIC KIDNEY DISEASE, UNSPECIFIED Problem List - Problems (1) Acute on chronic respiratory failure with hypoxia and hypercapnia Code(s): J96.21 - ACUTE AND CHRONIC RESPIRATORY FAILURE WITH HYPOXIA; J96.22 - ACUTE AND CHRONIC RESPIRATORY FAILURE WITH HYPERCAPNIA (2) CHF (congestive heart failure) Code(s): I50.9 - HEART FAILURE, UNSPECIFIED Qualifiers: Congestive heart failure type: unspecified congestive heart failure type Congestive heart failure chronicity: unspecified congestive heart failure chronicity Qualified Code(s): I50.9 - Heart failure, unspecified (3) COPD (chronic obstructive pulmonary disease) Code(s): J44.9 - CHRONIC OBSTRUCTIVE PULMONARY DISEASE, UNSPECIFIED Qualifiers: COPD type: emphysema Emphysema type: unspecified Qualified Code(s): J43.9 - Emphysema, unspecified (4) Cellulitis Code(s): L03.90 - CELLULITIS, UNSPECIFIED Qualifiers: Site of cellulitis: mouth Qualified Code(s): K12.2 - Cellulitis and abscess of mouth (5) Fever Code(s): R50.9 - FEVER, UNSPECIFIED Qualifiers: Fever type: unspecified Qualified Code(s): R50.9 - Fever, unspecified (6) Morbid obesity Code(s): E66.01 - MORBID (SEVERE) OBESITY DUE TO EXCESS CALORIES (7) Acute on chronic kidney failure Code(s): N17.9 - ACUTE KIDNEY FAILURE, UNSPECIFIED; N18.9 - CHRONIC KIDNEY DISEASE, UNSPECIFIED
[2017-03-11] MEDS: ARFORMOTEROL TARTRATE 15 MCG/2 ML VIAL NEB SCH ×2 (10:51→22:50)
--- NOTE | 2017-03-11 15:56 | PN ---
Teaching Attending Note Name of Resident: Hamlet Mckeon ATTENDING PHYSICIAN STATEMENT I saw and evaluated the patient. I reviewed the resident's note and discussed the case with the resident. I agree with the resident's findings and plan as documented. SUBJECTIVE: no fever or chills. he feels that Duo-Nebs suffocates him. he has frontal ART and he thinks hehas sinusitis . no visual changes , no numbness ,, weakness or tingling. OBJECTIVE: NAD , AAOx3 , TTP over frontal sinuses , no TTP over maxillary sinuses CV: RRR, no JVD. 2/6 SM all over the precardium. Lungs: good air entry, no wheezes Ext: non pitting edema, with hyperpigmented skin and thick nodular hyperkeratotic lesions. nl warmth 2+ DP on R, 1+ on L ASSESSMENT AND PLAN: 61 y/o man with h/o COPD ( non compliant with home oxygen), GAY, and questionable h/o D CHF who presented with fever , and worsening LE erythema 1-Sepsis due to LE cellulitis. leukocytosis resolved - cont ABx . possible switch to po tomorrow - Blood cx in one bottle is contaminant , and sputum cx is likely [place] 2- H/O COPD: Not active. -Change Duo-Nebs to ALb NEb as " Duo-Nebs suffocate him " - cont O2 through NC, pre-post ambulation , needs 5 L with ambulation, and 4 at rest 3- Exertional CP: strong suspicion of anginal sx . For cath as out pt . f/u with Dr. Powell 4- H/o D CHF: No signs of acute heart failure. -can resume his lasix in few days as outpt ( 20 mg only ) 5- LAWANDA: prerenal azotemia form volume depletion. - resolved 6- Decreased DP pulses. no significant stenosis or occlusion but abnormal signal . Can't obtain any vascular study with contrast due to LAWANDA and plan for Cath. - F/u As out pt 7- New onset diabetes. Hb 6.8 minimally elevated, sugar has been normal here . Metformin will be ideal for him due to his obesity but he has heart failure , will avoid will give him a life ctyle changes trial , and probably as otupt he can start oral agents if sugar becomes elevated 8- ART : CT of head obtained , with findings of dilated lateral ventricles . will ask neuro sx eval Dispo : can dc once ABx are switched to pO , possibly tomorrow
[2017-03-11] MEDS ORDERED: PT OWN MED DRAWER 7, Y5N ONE ×2 (16:29→16:36)
[2017-03-11] MEDS ORDERED: INSULIN (NOVOLOG) ASPART 100 UNITS/ML 10ML VIAL ONE (16:29)
[2017-03-11] MEDS: MONTELUKAST NA 10 MG TABLET PO SCH (21:20)
[2017-03-11] MEDS: ALBUTEROL SO4 0.083% IH SOL 2.5 MG/3 ML VIAL.NEB. NEB PRN (22:45)
[2017-03-12] MEDS: CEFAZOLIN 2 GM/D5W 2 GM/50 ML ML IVPB SCH ×2 (02:00→10:06)
[2017-03-12] MEDS: ALBUTEROL SO4 0.083% IH SOL 2.5 MG/3 ML VIAL.NEB. NEB PRN ×2 (06:50→11:57)
[2017-03-12] MEDS: HEPARIN NA (PORCINE) 5,000 UNITS/ML 1ML VIAL SQ SCH (06:55)
[2017-03-12 07:21] LABS: ANION GAP 6 (8-16); CALCIUM 9.2 mg/dL (8.5-10.1); CO2 36 mmol/L (21-32); CREATININE 1.1 mg/dL (0.7-1.3); GLUCOSE,RANDOM 94 mg/dL (74-106)
[2017-03-12] MEDS ORDERED: LISINOPRIL 10 MG TABLET (FP) PO SCH (07:45)
[2017-03-12 07:49] LABS: BASOPHIL 0.7 % (0-2.0); EOSINOPHIL 3.5 % (0-4.5); MCH 22.4 pg (25.7-33.7); MCHC 30.8 g/dl (32.0-35.9); MEAN CELL VOLUME 72.6 fl (80-96); MEAN PLT VOLUME 8.6 fl (7.5-11.1); NEUTROPHILS 74.1 % (42.8-82.8); PLATELET COUNT 166 K/MM3 (134-434); RDW 17.1 % (11.9-15.9); WHITE BLOOD COUNT 7.4 K/mm3 (4.0-10.0)
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
--- NOTE | 2017-03-12 08:41 | EKG ---
Test Reason : Blood Pressure : / mmHG Vent. Rate : 076 BPM Atrial Rate : 076 BPM P-R Int : 134 ms QRS Dur : 118 ms QT Int : 402 ms P-R-T Axes : 059 102 003 degrees QTc Int : 452 ms NORMAL SINUS RHYTHM POSSIBLE LEFT ATRIAL ENLARGEMENT RIGHTWARD AXIS INCOMPLETE RIGHT BUNDLE BRANCH BLOCK BORDERLINE ECG WHEN COMPARED WITH ECG OF 07-MAR-2017 21:57, INVERTED T WAVES HAVE REPLACED NONSPECIFIC T WAVE ABNORMALITY IN INFERIOR LEADS Confirmed by CINDY LIMA MD ([id number]) on 03/12/2017 8:41:21 AM Referred By: Milka ARREDONDO Confirmed By:CINDY LIMA MD
--- NOTE | 2017-03-12 08:42 | PN ---
Progress Note, Physician History of Present Illness: The patient is a 61 year old male, with a significant past medical history of COPD, collapsed left lung, who presents to the emergency department with shortness of breath and 104 degree fever. Patient states that he is currently on oxygen and has a nebulizer. He recently saw the ENT to see if he was allergic to penicillin since it runs in the family. While he was there he was given the pneumonia shot. This morning he began experiencing nasal congestion so he tried flushing it out with warm water. He states that clots of blood began to pour out and subsided for 1 hour. He states that he took 2 Tylenol around 5pm today. He denies any recent chills, headache or dizziness. He denies any recent nausea , vomit, diarrhea or constipation. He denies any recent chest pain. He denies any recent dysuria, frequency, urgency or hematuria. Allergies: NKA Past surgical history: None reported. Social History: Former smoker (quit 10 yrs ago 4-5 packs) Denies EtOH use and recreational drug use. PCP: Paddy Mendoza [phone] - Current Medication List Current Medications: Active Medications Acetaminophen (Tylenol -) 650 mg PO Q6H PRN PRN Reason: FEVER OR PAIN Last Admin: 03/11/17 21:21 Dose: 650 mg Albuterol Sulfate (Ventolin 0.083% Nebulizer Soln -) 1 amp NEB Q4H PRN PRN Reason: SHORT OF BREATH/WHEEZING Last Admin: 03/12/17 06:50 Dose: 1 amp Amlodipine Besylate (Norvasc -) 5 mg PO DAILY [facility] Arformoterol Tartrate (Brovana (Restricted To Pulmonology/Resp) -) 1 amp NEB BID [facility] Last Admin: 03/11/17 22:50 Dose: Not Given Aspirin (Ecotrin -) 81 mg PO DAILY [facility] Last Admin: 03/11/17 09:25 Dose: 81 mg Heparin Sodium (Porcine) (Heparin -) 5,000 unit SQ TID [facility] Last Admin: 03/12/17 06:55 Dose: 5,000 unit Cefazolin Sodium/Dextrose (Ancef 2 Gm Premixed Ivpb -) 2 gm in 50 mls @ 100 mls /hr IVPB Q8H-IV [facility] Last Admin: 03/12/17 02:00 Dose: 100 mls/hr Montelukast Sodium (Singulair -) 10 mg PO HS [facility] Last Admin: 03/11/17 21:20 Dose: 10 mg Ranitidine HCl (Zantac -) 150 mg PO DAILY [facility] Last Admin: 03/11/17 09:25 Dose: 150 mg - Objective Vital Signs: Vital Signs Temperature 98.9 F 03/11/17 22:00 Pulse Rate 83 03/12/17 06:00 Respiratory Rate 20 03/12/17 06:00 Blood Pressure 147/90 03/12/17 06:00 O2 Sat by Pulse Oximetry (%) 97 03/11/17 21:00 Eyes: Yes: WNL, Conjunctiva Clear, EOM Intact HENT: Yes: WNL, Atraumatic, Normocephalic Neck: Yes: WNL, Supple, Trachea Midline Cardiovascular: Yes: WNL, Regular Rate and Rhythm Respiratory: Yes: WNL, Regular, CTA Bilaterally Gastrointestinal: Yes: WNL, Normal Bowel Sounds Genitourinary: Yes: WNL Musculoskeletal: Yes: WNL Extremities: Yes: WNL Edema: No Integumentary: Yes: WNL Neurological: Yes: WNL, Alert, Oriented ...Motor Strength: WNL Psychiatric: Yes: WNL Labs: CBC, BMP 03/12/17 05:05 03/12/17 05:05 INR, PTT INR 1.17 (0.82-1.09) H 03/07/17 22:00 Problem List - Problems (1) CHF (congestive heart failure) Code(s): I50.9 - HEART FAILURE, UNSPECIFIED Qualifiers: Congestive heart failure type: unspecified congestive heart failure type Congestive heart failure chronicity: unspecified congestive heart failure chronicity Qualified Code(s): I50.9 - Heart failure, unspecified (2) COPD (chronic obstructive pulmonary disease) Code(s): J44.9 - CHRONIC OBSTRUCTIVE PULMONARY DISEASE, UNSPECIFIED Qualifiers: COPD type: emphysema Emphysema type: unspecified Qualified Code(s): J43.9 - Emphysema, unspecified (3) Cellulitis Code(s): L03.90 - CELLULITIS, UNSPECIFIED Qualifiers: Site of cellulitis: mouth Qualified Code(s): K12.2 - Cellulitis and abscess of mouth (4) Fever Code(s): R50.9 - FEVER, UNSPECIFIED Qualifiers: Fever type: unspecified Qualified Code(s): R50.9 - Fever, unspecified (5) Morbid obesity Code(s): E66.01 - MORBID (SEVERE) OBESITY DUE TO EXCESS CALORIES Assessment/Plan - Problems (1) Acute on chronic kidney failure Assessment/Plan: improvement in BUN/Cr with hydration continues. Code(s): N17.9 - ACUTE KIDNEY FAILURE, UNSPECIFIED; N18.9 - CHRONIC KIDNEY DISEASE, UNSPECIFIED (2) Acute on chronic respiratory failure with hypoxia and hypercapnia Assessment/Plan: f/u with machine ii cutter. Code(s): J96.21 - ACUTE AND CHRONIC RESPIRATORY FAILURE WITH HYPOXIA; J96.22 - ACUTE AND CHRONIC RESPIRATORY FAILURE WITH HYPERCAPNIA (3) Cellulitis Code(s): L03.90 - CELLULITIS, UNSPECIFIED Qualifiers: Site of cellulitis: mouth Qualified Code(s): K12.2 - Cellulitis and abscess of mouth (4) Fever Assessment/Plan: Afebrile since 03/07/17. Code(s): R50.9 - FEVER, UNSPECIFIED Qualifiers: Fever type: unspecified Qualified Code(s): R50.9 - Fever, unspecified (5) Morbid obesity Assessment/Plan: Pt feels he does not overeat. A dietary consult may be of value. Code(s): E66.01 - MORBID (SEVERE) OBESITY DUE TO EXCESS CALORIES (6) CAD (coronary artery disease) Assessment/Plan: positive stress MIBI at [facility]. Patient cardiologists is dr. Casillas Pt for coronary angiogram as outpatient if remains stable cardiac-ruiz this admission. TNI 0.08-->0.05. EKG: sinus tachycardia; no acute ST-T changes; incomplete RBBB; LPFB. Code(s): I25.10 - ATHSCL HEART DISEASE OF [place] CORONARY ARTERY W/O ANG PCTRS (7) [place] cardiac risk >20% in next 10 years Assessment/Plan: Statin; f/u lipids. F/u HGBA1c. TSH. Pt says he panics if he has to lie flat or undergo CT scan. Poor candidate for stress dobutamine ECHO (image quality of rest ECHO suboptimal ). Recommend coronary angiogram as outpatient, after completing course of antibiotics and after optimizing renal function. 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 Code(s): F06.4 - ANXIETY DISORDER DUE TO KNOWN PHYSIOLOGICAL CONDITION; F41.0 - PANIC DISORDER [EPISODIC PAROXYSMAL ANXIETY]
[2017-03-12] MEDS ORDERED: amLODIPine BESYLATE 5 MG TABLET (FP) PO SCH (10:00)
[2017-03-12] MEDS: RANITIDINE HCL 150 MG TABLET (FP) PO SCH (10:06)
[2017-03-12] MEDS: ASPIRIN COATED 81 MG TABLET.EC PO SCH (10:06)
[2017-03-12] MEDS ORDERED: methylPREDNISolone NA SUCC 40 MG/1 ML VIAL IVPUSH ONE (10:06)
--- NOTE | 2017-03-12 10:18 | PN ---
Progress Note, Physician History of Present Illness: pulmonary c/o sob,headache,-cp - Current Medication List Current Medications: Active Medications Acetaminophen (Tylenol -) 650 mg PO Q6H PRN PRN Reason: FEVER OR PAIN Last Admin: 03/11/17 21:21 Dose: 650 mg Albuterol Sulfate (Ventolin 0.083% Nebulizer Soln -) 1 amp NEB Q4H PRN PRN Reason: SHORT OF BREATH/WHEEZING Last Admin: 03/12/17 06:50 Dose: 1 amp Amlodipine Besylate (Norvasc -) 5 mg PO DAILY [facility] Last Admin: 03/12/17 10:06 Dose: 5 mg Arformoterol Tartrate (Brovana (Restricted To Pulmonology/Resp) -) 1 amp NEB BID [facility] Last Admin: 03/11/17 22:50 Dose: Not Given Aspirin (Ecotrin -) 81 mg PO DAILY [facility] Last Admin: 03/12/17 10:06 Dose: 81 mg Heparin Sodium (Porcine) (Heparin -) 5,000 unit SQ TID [facility] Last Admin: 03/12/17 06:55 Dose: 5,000 unit Cefazolin Sodium/Dextrose (Ancef 2 Gm Premixed Ivpb -) 2 gm in 50 mls @ 100 mls /hr IVPB Q8H-IV [facility] Last Admin: 03/12/17 10:06 Dose: 100 mls/hr Methylprednisolone Sodium Succinate (Solu-Medrol -) 40 mg IVPUSH ONCE ONE Stop: 03/12/17 10:07 Montelukast Sodium (Singulair -) 10 mg PO HS [facility] Last Admin: 03/11/17 21:20 Dose: 10 mg Prednisone (Deltasone -) 10 mg PO DAILY [facility] Ranitidine HCl (Zantac -) 150 mg PO DAILY [facility] Last Admin: 03/12/17 10:06 Dose: 150 mg - Objective Vital Signs: Vital Signs Temperature 98.9 F 03/11/17 22:00 Pulse Rate 83 03/12/17 06:00 Respiratory Rate 20 03/12/17 06:00 Blood Pressure 147/90 03/12/17 06:00 O2 Sat by Pulse Oximetry (%) 97 03/11/17 21:00 Constitutional: Yes: Calm, Obese Eyes: Yes: WNL HENT: Yes: WNL Neck: Yes: WNL Cardiovascular: Yes: Regular Rate and Rhythm, S1, S2 Respiratory: Yes: Diminished Gastrointestinal: Yes: Normal Bowel Sounds, Soft Extremities: Yes: WNL Edema: Yes Labs: CBC, BMP 03/12/17 05:05 03/12/17 05:05 INR, PTT INR 1.17 (0.82-1.09) H 03/07/17 22:00 - ....Imaging Cat Scan: Report Reviewed, Image Reviewed Problem List - Problems (1) Acute on chronic respiratory failure with hypoxia and hypercapnia Code(s): J96.21 - ACUTE AND CHRONIC RESPIRATORY FAILURE WITH HYPOXIA; J96.22 - ACUTE AND CHRONIC RESPIRATORY FAILURE WITH HYPERCAPNIA (2) CHF (congestive heart failure) Code(s): I50.9 - HEART FAILURE, UNSPECIFIED Qualifiers: Congestive heart failure type: unspecified congestive heart failure type Congestive heart failure chronicity: unspecified congestive heart failure chronicity Qualified Code(s): I50.9 - Heart failure, unspecified (3) COPD (chronic obstructive pulmonary disease) Code(s): J44.9 - CHRONIC OBSTRUCTIVE PULMONARY DISEASE, UNSPECIFIED Qualifiers: COPD type: emphysema Emphysema type: unspecified Qualified Code(s): J43.9 - Emphysema, unspecified (4) Cellulitis Code(s): L03.90 - CELLULITIS, UNSPECIFIED Qualifiers: Site of cellulitis: mouth Qualified Code(s): K12.2 - Cellulitis and abscess of mouth (5) Fever Code(s): R50.9 - FEVER, UNSPECIFIED Qualifiers: Fever type: unspecified Qualified Code(s): R50.9 - Fever, unspecified (6) Morbid obesity Code(s): E66.01 - MORBID (SEVERE) OBESITY DUE TO EXCESS CALORIES (7) Acute on chronic kidney failure Code(s): N17.9 - ACUTE KIDNEY FAILURE, UNSPECIFIED; N18.9 - CHRONIC KIDNEY DISEASE, UNSPECIFIED Assessment/Plan IMP ACUTE ON CHRONIC HYPOXEMIC/HYPERCAPNEIC RESPIRATORY FAILURE IMPROVING COPD EXACERBATION IMPROVING ADVANCE COPD ON HOME O2 NON-COMPLIANT CHF CELLULITIS IMPROVING PULMONARY HTN ACUTE ON CHRONIC KIDNEY DISEASE IMPROVED MORBID OBESITY LIKELY OSAS ASHD PLAN IV ANTIBIOTICS PER ID O2 INHALED BRONCHODILATORS MONITOR LYTES,RENAL FUNCTION CARDIAC CATH PER CARDIOLOGY PREDNISONE [address] MCPHERSON Problem List - Problems (1) Acute on chronic respiratory failure with hypoxia and hypercapnia Code(s): J96.21 - ACUTE AND CHRONIC RESPIRATORY FAILURE WITH HYPOXIA; J96.22 - ACUTE AND CHRONIC RESPIRATORY FAILURE WITH HYPERCAPNIA (2) CHF (congestive heart failure) Code(s): I50.9 - HEART FAILURE, UNSPECIFIED Qualifiers: Congestive heart failure type: unspecified congestive heart failure type Congestive heart failure chronicity: unspecified congestive heart failure chronicity Qualified Code(s): I50.9 - Heart failure, unspecified (3) COPD (chronic obstructive pulmonary disease) Code(s): J44.9 - CHRONIC OBSTRUCTIVE PULMONARY DISEASE, UNSPECIFIED Qualifiers: COPD type: emphysema Emphysema type: unspecified Qualified Code(s): J43.9 - Emphysema, unspecified (4) Cellulitis Code(s): L03.90 - CELLULITIS, UNSPECIFIED Qualifiers: Site of cellulitis: mouth Qualified Code(s): K12.2 - Cellulitis and abscess of mouth (5) Fever Code(s): R50.9 - FEVER, UNSPECIFIED Qualifiers: Fever type: unspecified Qualified Code(s): R50.9 - Fever, unspecified (6) Morbid obesity Code(s): E66.01 - MORBID (SEVERE) OBESITY DUE TO EXCESS CALORIES (7) Acute on chronic kidney failure Code(s): N17.9 - ACUTE KIDNEY FAILURE, UNSPECIFIED; N18.9 - CHRONIC KIDNEY DISEASE, UNSPECIFIED Problem List - Problems (1) Acute on chronic respiratory failure with hypoxia and hypercapnia Code(s): J96.21 - ACUTE AND CHRONIC RESPIRATORY FAILURE WITH HYPOXIA; J96.22 - ACUTE AND CHRONIC RESPIRATORY FAILURE WITH HYPERCAPNIA (2) CHF (congestive heart failure) Code(s): I50.9 - HEART FAILURE, UNSPECIFIED Qualifiers: Congestive heart failure type: unspecified congestive heart failure type Congestive heart failure chronicity: unspecified congestive heart failure chronicity Qualified Code(s): I50.9 - Heart failure, unspecified (3) COPD (chronic obstructive pulmonary disease) Code(s): J44.9 - CHRONIC OBSTRUCTIVE PULMONARY DISEASE, UNSPECIFIED Qualifiers: COPD type: emphysema Emphysema type: unspecified Qualified Code(s): J43.9 - Emphysema, unspecified (4) Cellulitis Code(s): L03.90 - CELLULITIS, UNSPECIFIED Qualifiers: Site of cellulitis: mouth Qualified Code(s): K12.2 - Cellulitis and abscess of mouth (5) Fever Code(s): R50.9 - FEVER, UNSPECIFIED Qualifiers: Fever type: unspecified Qualified Code(s): R50.9 - Fever, unspecified (6) Morbid obesity Code(s): E66.01 - MORBID (SEVERE) OBESITY DUE TO EXCESS CALORIES (7) Acute on chronic kidney failure Code(s): N17.9 - ACUTE KIDNEY FAILURE, UNSPECIFIED; N18.9 - CHRONIC KIDNEY DISEASE, UNSPECIFIED
[2017-03-12] MEDS: ARFORMOTEROL TARTRATE 15 MCG/2 ML VIAL NEB SCH (11:57)
[2017-03-12 13:40] VITALS: BP 133/70; PULSE 75; TEMP 98.7
--- NOTE | 2017-03-12 19:54 | DS ---
Physical Exam: SUBJECTIVE: Patient seen and examined Pt last seen on evening of 03/11 - - Seen by neurosurgery on 03/12. Ventricular enlargement not likely NPH per Dr. Everett. - Feels duonebs are irritating his throat. - Counseled about Cath. Would consider inpt transfer if available to local center. - Persistent ART since admission per pt, not relieved with tylenol. Believes to be sinus infection. focally tender - Endorses general fatigue, no change in cough/SOB or exertional angina. - Denies any fevers/chills, N/V, abdominal pain, diarrhea/constipation, dysuria , new rash or focal neuro symptoms. No dizziness, changes in vision. OBJECTIVE: Vital Signs Period Temp Pulse Resp BP Sys/Santiago Pulse Ox Last 24 Hr 98.7 F-98.9 F 71-83 20-20 133-173/70-90 95-97 PHYSICAL EXAM GENERAL: The patient is awake, alert, and fully oriented, in no acute distress. HEAD: NCAT EYES: PERRL, extraocular movements intact, sclera anicteric, conjunctiva clear. No ptosis. ENT: Ears normal, nares patent, oropharynx clear without exudates, moist mucous membranes. NECK: Trachea midline, supple. LUNGS: Still with decreased breath sounds at bases, trace upper lung field wheezes, no crackles, no accessory muscle use. HEART: 2/6 systolic murmur best appreciable at LLSB. Regular rate and rhythm, S1 , S2 without murmur, rub or gallop. ABDOMEN: Reducible umbilical hernia. Soft, nontender, globular, normoactive bowel sounds, no guarding, no rebound, no hepatosplenomegaly Upper EXTREMITIES: 2+ pulses, warm, well-perfused, no edema. Spooning of distal phalanges noted. Lower Extremities: 1+ DP pulses, PT pulses. 2+ non-pitting edema BL. BL stasis dermatitis, w/ chronic venous stasis, BL hyperpigmentation and hyperkeratotic raised lesions on R anterior prescott. Very mild erythema in R lower ankle on the anterior surface. Prior healed laceration on underneath nail of R big toe. NEUROLOGICAL: Cranial nerves II through XII grossly intact. Normal speech, gait not observed. PSYCH: Normal mood, normal affect. LABS Laboratory Results - last 24 hr CBC, BMP 03/12/17 05:05 03/12/17 05:05 03/12/17 03/12/17 03/12/17 05:05 05:05 11:57 WBC 7.4 RBC 6.02 H Hgb 13.5 Hct 43.7 MCV 72.6 L MCH 22.4 L MCHC 30.8 L RDW 17.1 H Plt Count 166 MPV 8.6 Neutrophils % 74.1 Lymphocytes % 12.2 Monocytes % 9.5 Eosinophils % 3.5 Basophils % 0.7 Sodium 140 Potassium 4.9 Chloride 98 Carbon Dioxide 36 H Anion Gap 6 L BUN 15 Creatinine 1.1 POC Glucometer 95 Random Glucose 94 Calcium 9.2 HOSPITAL COURSE: Date of Admission:03/08/17 Date of Discharge: 03/12/17 61 yo man w/ pmh of COPD (on home O2 PRN), CHF, GAY, chronic BL lymphedema who presented to the ED with fevers/chills, noted to be acutely delirious by sister , currently being tx for sepsis secondary to R LE cellulitis. Pt has been improving, with no further infectious symptoms, but has been complaining of exertional angina and well as persistent headaches. Very apprehensive about leaving hospital. Micro: Microbiology 03/08/17 21:40 Sputum - Expectorated Gram Stain - Final 03/08/17 21:40 Sputum - Expectorated Sputum Culture - Final Haemophilus Parainfluenzae I Yeast Like Organism 03/07/17 22:00 Blood - Peripheral Venous Blood Culture - Preliminary NO GROWTH OBTAINED AFTER 96 HOURS, INCUBATION TO CONTINUE FOR 1 DAYS. 03/07/17 22:00 Blood - Peripheral Venous Blood Culture - Final Staph Hominis Sub Sp Hominis 03/07/17 22:40 Urine - Urine Clean Catch Urine Culture - Final 03/07/17 22:00 Nasopharyngeal Swab Influenza Types A,B Antigen (LINETTE) - Final 03/07/17 22:00 Nasopharyngeal Swab - Final Imaging: CXR 03/07 - Enlargement of the cardiac silhouette, mild to moderate pulmonary vascular congestion and possible small left pleural effusion versus nonspecific pleural thickening. Please correlate clinically for CHF exacerbation. No definite airspace consolidation or other opacity to suggest pneumonia. Bibasilar subsegmental atelectasis. LE US - 03/08 - There is no evidence of deep venous thrombosis within the common , deep and superficial femoral veins, as well as the popliteal and posterior tibial veins. The greater saphenous veins are also patent. These veins are fully compressible, as well. Arterial LE doppler 03/08 - Mild BL atherosclerotic dz. No evidence of hemodynamically significant occlusive disease. ECHO 03/08 - Moderate bi-atrial dilatation. Mild MR, moderate TR. LV EF normal, grossly normal appearing. EKG 03/07 - Sinus tachy rate 110. RBBB. Possible LAE. Renal U/S 03/08 - normal kidneys CT 03/10 - No focal infiltrates or gross pleural Nodules are identified. No enlarged mediastinal or hilar lymph nodes are identified. Borderline cardiomegaly. Calcification of the coronary arteries are present. Included upper abdomen appears unremarkable with nonvisualization of the gallbladder. Head CT 03/11 - Dilated ventricles w/ suspicion of NPH. No abnormalities in sinuses Consults: Pulmonology- Cardiology- ID- Neurosurgery- Pt medically cleared for discharge with outpt follow-up for chronic conditions. Discharge Summary Reason For Visit: FEVER,MORBID OBESITY,CONGESTIVE HEART FAILURE, Condition: Stable - Instructions Diet, Activity, Other Instructions: You were treated for acute kidney injury and infection most likely from your legs. Please continue with your medications as directed. - Aspirin, amlodipine are a new medications for your heart and Blood pressure - Clindamycin is a new medication for cellulitis , take it for 3 days only - Brovana is a new inhaler for your COPD Follow-ups: - Dr. Lopez from vascular surgery to evaluate decreased blood flow in your legs , you have an appointment on MondayMarch 20 10:00AM. - Dr. Dey from cardiology for further cardiac evaluation and to arrange for a cardiac catheterization as an outpatient. - Dr. Donohue from pulmonology to further evaluate your oxygen requirements. - follow with Dr. Everett to evaluate for your Headaches and the dilated chambers in your brain. -Please use your oxygen at 4 Liters with a nasal cannula at rest . You need oxygen 5 Liters with ambulation -If you develop worsening chest pain, trouble breathing, worsening cough, fevers , or any new symptoms please return to the hospital. -You have a diagnosis of Diabetes. This is a chronic condition that needs to be followed closely. Please follow a diabetic and low fat diet, and check your sugar 3 times a day before each meal to report to your doctor . You may need to be placed on diabetes medications. Referrals: Paddy Mendoza [Other] - 1 Week Jalil Donohue MD [Staff Physician] - 3 Weeks Jori Everett MD [Staff Physician] - 1 Month Carlyle Dey MD [Staff Physician] - 1 Week Micah Lopez MD [Staff Physician] - 2 Weeks Disposition: VNS/HOME HEALTH CARE - Home Medications Comprehensive Discharge Medication List: Ambulatory Orders Montelukast Sodium [Singulair] 4 mg PO DAILY 03/08/17 Furosemide [Lasix -] 20 mg PO DAILY 03/09/17 Gabapentin 300 mg PO TID 03/09/17 Prednisone 10 mg PO DAILY 03/09/17 Albuterol 0.083% Nebulizer Noemy [Ventolin 0.083% Nebulizer Soln -] 1 neb NEB QID PRN 03/12/17 Albuterol Sulfate Inhaler - [Ventolin HFA Inhaler -] 1 puff IH Q4H PRN #1 inhaler 03/12/17 Amlodipine Besylate [Norvasc -] 5 mg PO DAILY #30 tablet 03/12/17 Arformoterol Tartrate [Brovana -] 1 amp NEB BID #1 amp 03/12/17 Aspirin Coated [Ecotrin -] 81 mg PO DAILY #30 tablet.ec 03/12/17 Clindamycin [Cleocin -] 450 mg PO Q8H #36 capsule 03/12/17 Ranitidine [Zantac -] 150 mg PO DAILY #30 tablet 03/12/17
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
--- NOTE | 2017-03-13 08:16 | PN ---
Progress Note (short form) - Note Progress Note: Subjective: no SOB or pain or fever Objective: Vital Signs: Last Vital Signs Temp Pulse Resp BP Pulse Ox 98.7 F 75 20 133/70 95 03/12/17 10:00 03/12/17 10:00 03/12/17 10:00 03/12/17 10:00 03/12/17 10:00 Laboratory Results - last 24 hr 03/12/17 11:57 POC Glucometer 95 Physical Exam NAD, AAOx3 , TTP over frontal sinuses , no TTP over maxillary sinuses CV: RRR, no JVD. 2/6 SM all over the precardium. Lungs: good air entry, no wheezes Ext: non pitting edema, with hyperpigmented skin and thick nodular hyperkeratotic lesions. nl warmth 2+ DP on R, 1+ on L ASSESSMENT AND PLAN: 61 y/o man with h/o COPD ( non compliant with home oxygen), GAY, and questionable h/o D CHF who presented with fever , and worsening LE erythema 1-Sepsis due to LE cellulitis.change abx to clinda x 4 more days after dc 2- H/O COPD: Not active. place back on his chronic steroids 10 mg daily received iv steroids today 3- Exertional CP: cath as outpt 4- H/o Diastolic CHF: not active . resume his lasix at dc 5- LAWANDA: - resolved 6- Decreased DP pulses. no significant stenosis or occlusion but abnormal signal . Can't obtain any vascular study with contrast due to LAWANDA and plan for Cath. - F/u As out pt 7-diabetes. Hb 6.8 minimally elevated, sugar has been normal here . pt declined being able to tolerate any po meds before ( PCP told him he was boarderline) f/u as out pt , life style changes 8- ART : possible dilated ventricles. f/u with Dr. Everett as out pt dc home . O2 at dc 4 L at rest , 5 with ambulation Visit type - Emergency Visit Emergency Visit: Yes ED Registration Date: 03/08/17 Care time: The patient presented to the Emergency Department on the above date and was hospitalized for further evaluation of their emergent condition. - New Patient This patient is new to me today: No - Critical Care Critical Care patient: No - Discharge Referral Referred to [facility] Med P.C[facility] No
[2017-03-13] MEDS ORDERED: predniSONE 10 MG TABLET (UD) PO SCH (10:00)
== END 2017-03-12 13:19 | disposition home health service (06) | DRG 871 ==
LOC: JER 20:23 → JERBED 03-08 01:56 → J4W 03-08 22:25
PROVIDERS: ADMIT Internal Medicine; ATTEND Internal Medicine
DX: A41.9 Sepsis, unspecified organism (principal); J96.21 Acute and chronic respiratory failure with hypoxia; J96.22 Acute and chronic respiratory failure with hypercapnia; Z68.42 Body mass index [BMI] 45.0-49.9, adult; N17.9 Acute kidney failure, unspecified; L03.115 Cellulitis of right lower limb; I13.0 Hypertensive heart and chronic kidney disease with heart failure and stage 1 through stage 4 chronic kidney disease, or unspecified chronic kidney disease; I50.32 Chronic diastolic (congestive) heart failure; J44.1 Chronic obstructive pulmonary disease with (acute) exacerbation; I45.10 Unspecified right bundle-branch block; E66.01 Morbid (severe) obesity due to excess calories; Z99.81 Dependence on supplemental oxygen; Z87.891 Personal history of nicotine dependence; I89.0 Lymphedema, not elsewhere classified; G47.33 Obstructive sleep apnea (adult) (pediatric); I87.2 Venous insufficiency (chronic) (peripheral); I73.9 Peripheral vascular disease, unspecified; Z91.19 Patient's noncompliance with other medical treatment and regimen; I27.20 Pulmonary hypertension, unspecified; N18.9 Chronic kidney disease, unspecified; F06.4 Anxiety disorder due to known physiological condition; I36.1 Nonrheumatic tricuspid (valve) insufficiency; R04.0 Epistaxis; I20.8 Other forms of angina pectoris; E11.22 Type 2 diabetes mellitus with diabetic chronic kidney disease; R51 Headache; Z79.52 Long term (current) use of systemic steroids; G93.89 Other specified disorders of brain; R27.0 Ataxia, unspecified
CPT/HCPCS: 36415; 36600; 70450-TC; 71010-TC; 71250-TC; 76775-TC; 80048; 80053; 80061; 81003; 81015; 82375; 82436; 82550; 82553; 82570; 82728; 82803; 83036; 83050; 83540; 83550; 83605; 83721; 83735; 83880; 84100; 84133; 84156; 84300; 84443; 84466; 84484; 85025; 85610; 85730; 86850; 86900; 86901; 87040; 87070; 87086; 87186; 87205; 87389; 87804; 93005; 93010; 93306-TC; 93925-TC; 93970-TC; 94150; 94640; 94761; 99285-25; G0480; J1644

== ENCOUNTER 2018-07-27 10:21 | Inpatient (IN) | payer OTHER, MEDICARE ==
--- NOTE | 2018-07-27 11:43 | PDOC ---
*Physical Exam - Vital Signs Last Vital Signs Temp Pulse Resp BP Pulse Ox 98.2 F 73 17 153/86 93 L 07/27/18 10:34 07/27/18 10:34 07/27/18 10:34 07/27/18 10:34 07/27/18 10:34 ED Treatment Course - LABORATORY CBC & Chemistry Diagram: 07/28/18 10:00 07/28/18 10:00 Medical Decision Making - Medical Decision Making 07/27/18 11:[address] burns for IV abx, was dx as osteo as outpatient pt in no distress, wound is dressed and pt declines our exam since it was freshly dressed/examined by woundcare will obtain labs admit for further management The patient was seen and evaluated in conjunction with CODY Goodrich under my direct supervision, ancillary studies were reviewed. I independently interviewed and evaluated the patient and I agree with the plan as outlined by CODY Goodrich. *DC/Admit/Observation/Transfer Diagnosis at time of Disposition: Osteomyelitis - Referrals - Patient Instructions - Post Discharge Activity
[2018-07-27] MEDS ORDERED: ALBUTEROL SO4 8 GM HFA INHALER IH PRN (11:45)
--- NOTE | 2018-07-27 11:59 | PDOC ---
History of Present Illness - General Chief Complaint: Wound Stated Complaint: LEG WOUND Time Seen by Provider: 07/27/18 11:09 History Source: Patient, Old Records Exam Limitations: No Limitations - History of Present Illness Initial Comments: 07/27/18 11:53 62 yo M w/ a h/o COPD (on home O2PRN), bilateral lymphedema, CHF, GAY set by Dr. Lopez for admission for IV antibiotics for L great toe osteomyelitis. Pt was seen on 07/[address] Lopez, had labs, and MRI done, which showed osteomyelitis. Wound culture shows staph aureus sensitive to vancomycin. Pt saw Dr. Lopez this am, who consulted Dr. Davenport (Infectious disease), and after reviewing pt's MRI results, he asked pt to come in for IV antibiotics. Pt to be admitted under hospitalist service. Past History - Past Medical History Allergies/Adverse Reactions: Allergies Allergy/AdvReac Type Severity Reaction Status Date / Time No Known Allergies Allergy Verified 07/27/18 10:34 Home Medications: Ambulatory Orders Furosemide [Lasix -] 20 mg PO DAILY 03/09/17 Prednisone 10 mg PO DAILY 03/09/17 Albuterol Sulfate Inhaler - [Ventolin HFA Inhaler -] 1 puff IH Q4H PRN #1 inhaler 03/12/17 Aspirin Coated [Ecotrin -] 81 mg PO DAILY #30 tablet.ec 03/12/17 Albuterol Sulfate [Proair Hfa] 2 puff IH Q4H PRN 07/20/18 Doxycycline Hyclate 100 mg PO BID 07/20/18 Isosorbide Mononitrate [Isosorbide Mononitrate ER] 30 mg PO HS 07/20/18 Montelukast Na [Singulair -] 10 mg PO DAILY 07/20/18 Collagenase Clostridium Hist. [Santyl] 1 applic TP DAILY #90 oint...g. 07/23/18 Cardiac Disorders: Yes COPD: Yes Hypercholesterolemia: Yes - Surgical History Lung Surgery: Yes - Immunization History Immunization Up to Date: Yes - Suicide/Smoking/Psychosocial Hx Smoking History: Never smoked Have you smoked in the past 12 months: No Information on smoking cessation initiated: No Hx Alcohol Use: No Drug/Substance Use Hx: No Substance Use Type: None Review of Systems - Review of Systems Able to Perform ROS?: Yes Constitutional: No: Chills, Fever, Malaise, Night Sweats HEENTM: No: Eye Pain, Recent change in vision, Throat Pain Respiratory: No: Cough, Shortness of Breath Cardiac (ROS): No: Chest Pain, Palpitations, Chest Tightness ABD/GI: No: Diarrhea, Nausea, Vomiting, Abdominal cramping : No: Dysuria, Hematuria Musculoskeletal: No: Back Pain Integumentary: No: Rash Neurological: No: Headache, Numbness, Dizziness Psychiatric: No: Change in Appetite Endocrine: No: Unexplained Weight Loss *Physical Exam - Vital Signs Last Vital Signs Temp Pulse Resp BP Pulse Ox 98.2 F 73 17 153/86 93 L 07/27/18 10:34 07/27/18 10:34 07/27/18 10:34 07/27/18 10:34 07/27/18 10:34 - Physical Exam General Appearance: Yes: Nourished. No: Apparent Distress HEENT: positive: AJAY, Normal ENT Inspection, Normal Voice. negative: Pale Conjunctivae, Scleral Icterus (R), Scleral Icterus (L) Neck: positive: Supple. negative: Decreased range of motion, Tender midline Respiratory/Chest: positive: Lungs Clear, Normal Breath Sounds. negative: Respiratory Distress, Accessory Muscle Use Cardiovascular: positive: Regular Rhythm, Regular Rate Extremity: positive: Other (Patient with L great toe wrapped, wearing compression stockings and surgical shoe, wound examined and dressed this am by Dr. Lopez, patient declines examination by me.) Integumentary: positive: Normal Color, Dry. negative: Jaundice, Rash Neurologic: positive: Fully Oriented, Alert, Normal Mood/Affect ED Treatment Course - LABORATORY CBC & Chemistry Diagram: 07/27/18 12:00 07/27/18 12:00 Medical Decision Making - Medical Decision Making 07/27/18 11:59 62 yo M sent by Dr. Lopez to be admitted for L toe osteomyelitis under hospitalist service. Dr. Davenport from [place] aware as per Dr. Lopez's note. Labs, line ordered. WIll give vancomycin 1 dose here. ID paged. 07/27/18 12:01 Pt requesting an albuterol pump, says that he may run out of his proair if he needs to use it anytime soon 07/27/18 13:[address] Davenport from ID Pending call back from Hospitalist to put patient in for admission 07/27/18 14:27 I spoke to hospitalist who said to admit under Dr. Rodrigues *DC/Admit/Observation/Transfer Diagnosis at time of Disposition: Osteomyelitis Qualifiers: Osteomyelitis type: unspecified type Osteomyelitis location: foot Laterality: left Qualified Code(s): M86.9 - Osteomyelitis, unspecified - Referrals - Patient Instructions - Post Discharge Activity
[2018-07-27] MEDS ORDERED: VANCOMYCIN 1 GM in D5W (PRE-DOCKED) 1,000 MG/250 ML IVPB ONE (12:00)
[2018-07-27 12:17] LABS: BASO % 0.7 % (0-2.0); HEMATOCRIT 41.8 % (35.4-49); HEMOGLOBIN 13.4 GM/dL (11.7-16.9); LYMPH % 13.9 % (8-40); MCH 21.9 pg (25.7-33.7); MEAN CELL VOLUME 68.5 fl (80-96); MEAN PLT VOLUME 8.2 fl (7.5-11.1); MONO % 5.8 % (3.8-10.2); NEUT % 78.6 % (42.8-82.8); PLATELET COUNT 185 K/MM3 (134-434); RDW 16.6 % (11.9-15.9); WHITE BLOOD COUNT 8.6 K/mm3 (4.0-10.0)
[2018-07-27 12:29] LABS: INR 1.07 (0.83-1.09); PROTHROMBIN TIME (PATIENT) 12.6 SEC (9.7-13.0)
[2018-07-27 12:40] LABS: ALBUMIN 3.6 g/dl (3.4-5.0); ALK PHOS 81 U/L (45-117); ANION GAP 5 MMOL/L (8-16); BILIRUBIN,TOTAL 0.6 mg/dL (0.2-1); BLOOD UREA NITROGEN 16 mg/dL (7-18); CALCIUM 8.9 mg/dL (8.5-10.1); CHLORIDE 100 mmol/L (98-107); CO2 28 mmol/L (21-32); CREATININE 0.8 mg/dL (0.55-1.3); GLUCOSE,RANDOM 93 mg/dL (74-106); POTASSIUM 4.5 mmol/L (3.5-5.1); SGOT/AST 26 U/L (15-37); SGPT/ALT 26 U/L (13-61); SODIUM 134 mmol/L (136-145); TOT PROT 7.2 g/dl (6.4-8.2)
[2018-07-27 13:12] LABS: ANISOCYTOSIS 2+; MACROCYTOSIS 0; PLATELET ESTIMATE NORMAL; TARGET CELLS 1+
[2018-07-27] MEDS ORDERED: VANCOMYCIN 1 GRAM (PRE-DOCKED) 1,000 MG/250 ML BAG IVPB ONE (13:12)
[2018-07-27] MEDS ORDERED: ALBUTEROL SO4 0.083% IH SOL 2.5 MG/3 ML VIAL.NEB. NEB ONE (16:07)
[2018-07-27] MEDS: ALBUTEROL SO4 0.5 % INH SOLN 2.5 MG/0.5 ML VIAL.NEB. NEB SCH ×2 (16:16→21:00)
--- NOTE | 2018-07-27 17:49 | HP ---
CHIEF COMPLAINT: sent in for osteomylitis and initiation of senior living antibiotics PCP: Dr. Lopez HISTORY OF PRESENT ILLNESS: Patient is a 62 year old male with a significant past medical history of COPD ( on home O2 at 2-3 liters), bilateral lymphedema (left >right), CHF, collapsed left lung 2010, GAY. He was sent in by vascular surgery (Dr. Lopez) for admission and initiation of terminal makeup operator IV antibiotics for left great toe osteomyelities. Patient had an MRI on 07/20/18 consistent with osteomylities of left great toe. Wound culture of this foot shows staph aureus sensitive to vancomycin. ID specialist Dr Davenport consulted in the ED. Vanco ordered for patient, however, further antibiotic therapy to be decided by ID. Patient follows Dr. Restrepo, apparel fashion designer and was scheduled for a stress test on August 14 for possible stent placement. Patient denies fever, chills or malaise. ER course was notable for: (1) left left ext MRI 07/20/18: soft tissue edema. mild bone marrow edema, infectious process consistent with osteomyelitis. (2) vanco 1 gram in ED (3) Recent Travel: denies PAST MEDICAL HISTORY: PAST SURGICAL HISTORY: Social History: Smoking: quit 10 years ago Alcohol: denies Drugs: denies Family History: Allergies No Known Allergies Allergy (Verified 07/27/18 10:34) HOME MEDICATIONS: Home Medications Medication Instructions Recorded Furosemide [Lasix -] 20 mg PO DAILY 03/09/17 Prednisone 10 mg PO DAILY 03/09/17 Albuterol Sulfate Inhaler - 1 puff IH Q4H PRN #1 inhaler 03/12/17 [Ventolin HFA Inhaler -] Aspirin Coated [Ecotrin -] 81 mg PO DAILY #30 tablet.ec 03/12/17 Albuterol Sulfate [Proair Hfa] 2 puff IH Q4H PRN 07/20/18 Doxycycline Hyclate 100 mg PO BID 07/20/18 Isosorbide Mononitrate [Isosorbide 30 mg PO HS 07/20/18 Mononitrate ER] Montelukast Na [Singulair -] 10 mg PO DAILY 07/20/18 Collagenase Clostridium Hist. 1 applic TP DAILY #90 oint...g. 07/23/18 [Santyl] PHYSICAL EXAMINATION Vital Signs - 24 hr 07/27/18 07/27/18 07/27/18 10:34 12:57 17:01 Temperature 98.2 F 98.7 F Pulse Rate 73 Pulse Rate [ 77 78 Left] Respiratory 17 16 20 Rate Blood Pressure 153/86 Blood Pressure 122/87 137/82 [Left] O2 Sat by Pulse 93 L 97 Oximetry (%) 07/27/18 17:27 Temperature Pulse Rate Pulse Rate [ Left] Respiratory Rate Blood Pressure Blood Pressure [Left] O2 Sat by Pulse 98 Oximetry (%) GENERAL: Awake, alert, and fully oriented, in no acute distress. HEAD: Normal with no signs of trauma. EYES: Pupils equal, round and reactive to light, extraocular movements intact, sclera anicteric, conjunctiva clear. No lid lag. EARS, NOSE, THROAT: Ears normal, nares patent, oropharynx clear without exudates. Moist mucous membranes. NECK: Normal range of motion, supple without lymphadenopathy, JVD, or masses. LUNGS: diminished bilaterally, on home oxygen at 2-3 liters. HEART: Regular rate and rhythm, ABDOMEN: obese abdomen + bowel sounds MUSCULOSKELETAL: Normal range of motion at all joints. No bony deformities or tenderness. No CVA tenderness. UPPER EXTREMITIES: 2+ pulses, warm, well-perfused. No cyanosis. No clubbing. No peripheral edema. LOWER EXTREMITIES: bilateraly lymphedema, osteomyelitis of left foot. NEUROLOGICAL: Normal speech. Normal gait. PSYCHIATRIC: Cooperative. Good eye contact. Appropriate mood and affect. Laboratory Results - last 24 hr 07/27/18 07/27/18 07/27/18 12:00 12:00 12:00 WBC 8.6 RBC 6.10 H Hgb 13.4 Hct 41.8 MCV 68.5 L MCH 21.9 L MCHC 32.0 RDW 16.6 H Plt Count 185 MPV 8.2 Absolute Neuts (auto) 6.8 Neutrophils % 78.6 Lymphocytes % 13.9 Monocytes % 5.8 Eosinophils % 1.0 Basophils % 0.7 Nucleated RBC % 0 Hypochromia 0 Platelet Estimate Normal Polychromasia 0 Poikilocytosis 0 Anisocytosis 2+ Microcytosis 2+ Macrocytosis 0 Target Cells 1+ PT with INR 12.60 INR 1.07 Sodium 134 L Potassium 4.5 Chloride 100 Carbon Dioxide 28 Anion Gap 5 L BUN 16 Creatinine 0.8 Creat Clearance w eGFR 98.61 Random Glucose 93 Calcium 8.9 Total Bilirubin 0.6 AST 26 ALT 26 Alkaline Phosphatase 81 Total Protein 7.2 Albumin 3.6 Blood Type Antibody Screen 07/27/18 12:00 WBC RBC Hgb Hct MCV MCH MCHC RDW Plt Count MPV Absolute Neuts (auto) Neutrophils % Lymphocytes % Monocytes % Eosinophils % Basophils % Nucleated RBC % Hypochromia Platelet Estimate Polychromasia Poikilocytosis Anisocytosis Microcytosis Macrocytosis Target Cells PT with INR INR Sodium Potassium Chloride Carbon Dioxide Anion Gap BUN Creatinine Creat Clearance w eGFR Random Glucose Calcium Total Bilirubin AST ALT Alkaline Phosphatase Total Protein Albumin Blood Type O POSITIVE Antibody Screen Negative ASSESSMENT/PLAN: Patient is a 62 year old male with a significant past medical history of COPD ( on home O2 at 2-3 liters), bilateral lymphedema (left >right), CHF, collapsed left lung 2009, GAY. He was sent in by vascular surgery (Dr. Lopez) for admission and initiation of terminal makeup operator IV antibiotics for left great toe osteomyelities. Patient had an MRI on 07/20/18 consistent with osteomylities of left great toe. Wound culture of this foot shows staph aureus sensitive to vancomycin. ID specialist Dr Davenport consulted in the ED. Vanco ordered for patient, however, further antibiotic therapy to be decided by ID. Imaging: MRI 07/27/18: 1. Soft tissue edema of the foot extending into the toes. 2. Focal open wound over the plantar medial aspect of the first toe distal tuft of the distal phalanx area 3. Mild bone marrow edema and enhancement of the distal tuft of the distal phalanx of the hallux which in the setting of an infectious process is most consistent with osteomyelitis. ID: Left foot osteomyelitis Vancomycin initiated in the ED. Further antibiotics per ID. Per ID, patient will need terminal makeup operator ID antibiotics. Patient denies having any fevers or chills. for PICC line placement on Monday ID following Pulm: COPD. home oxygen dependent. Albuterol q [address] back on his chronic steroids 10 mg daily Card: Exertional chest pain: cath as outpt for August 14 H/o Diastolic CHF: not active not on lasix at home. Endocrine Hmga1c 6.8 on previous admission repeat a1c with a.m. labs. fen low salt diet monitor electrolytes prophy heparin tid Visit type - Emergency Visit Emergency Visit: Yes ED Registration Date: 07/27/18 Care time: The patient presented to the Emergency Department on the above date and was hospitalized for further evaluation of their emergent condition. - New Patient This patient is new to me today: Yes Date on this admission: 07/27/18 - Critical Care Critical Care patient: No
[2018-07-27] MEDS: HEPARIN NA (PORCINE) 5,000 UNITS/ML 1ML VIAL SQ SCH (22:00)
[2018-07-27] MEDS: MONTELUKAST NA 10 MG TABLET PO SCH (22:00)
[2018-07-28] MEDS: ALBUTEROL SO4 0.083% IH SOL 2.5 MG/3 ML VIAL.NEB. NEB PRN ×2 (00:22→04:40)
[2018-07-28] MEDS: HEPARIN NA (PORCINE) 5,000 UNITS/ML 1ML VIAL SQ SCH ×3 (05:44→22:12)
[2018-07-28] MEDS: predniSONE 10 MG TABLET (UD) PO SCH (09:55)
[2018-07-28] MEDS: ASPIRIN COATED 81 MG TABLET.EC PO SCH (09:55)
[2018-07-28 10:45] LABS: BASO % 0.7 % (0-2.0); EOS % 4.3 % (0-4.5); HEMATOCRIT 41.4 % (35.4-49); HEMOGLOBIN 13.1 GM/dL (11.7-16.9); LYMPH % 13.8 % (8-40); MCH 21.8 pg (25.7-33.7); MCHC 31.6 g/dl (32.0-35.9); MEAN CELL VOLUME 68.9 fl (80-96); MEAN PLT VOLUME 8.4 fl (7.5-11.1); MONO % 11.4 % (3.8-10.2); NEUT % 69.8 % (42.8-82.8); PLATELET COUNT 166 K/MM3 (134-434); RBC 6.01 M/mm3 (4.00-5.60); WHITE BLOOD COUNT 6.2 K/mm3 (4.0-10.0)
--- NOTE | 2018-07-28 11:31 | CON.ID ---
Consult Consult Specialty:: infectious diseases Referred by:: Reason for Consultation:: osteo of the foot - History of Present Illness Chief Complaint: osteo of the left foot History of Present Illness: 62 yo M w/ a h/o COPD (on home O2PRN), bilateral lymphedema, CHF, GAY admitted for L great toe osteomyelitis. patient was worked up in the wound care center and was found ot have osteo of the left toe and the cx came back positive for mssa patient needs to get iv abx patient has multiple other medical probalems and is also obese - History Source History Provided By: Patient Limitations to Obtaining History: No Limitations - Past Medical History Cardio/Vascular: Yes: CHF, HTN Pulmonary: Yes: COPD - Alcohol/Substance Use Hx Alcohol Use: No - Smoking History Smoking history: Never smoked Have you smoked in the past 12 months: No If you are a former smoker, when did you quit?: 15 years ago Home Medications - Allergies Allergies/Adverse Reactions: Allergies Allergy/AdvReac Type Severity Reaction Status Date / Time No Known Allergies Allergy Verified 07/27/18 10:34 - Home Medications Home Medications: Ambulatory Orders Furosemide [Lasix -] 20 mg PO DAILY 03/09/17 Prednisone 10 mg PO DAILY 03/09/17 Albuterol Sulfate Inhaler - [Ventolin HFA Inhaler -] 1 puff IH Q4H PRN #1 inhaler 03/12/17 Aspirin Coated [Ecotrin -] 81 mg PO DAILY #30 tablet.ec 03/12/17 Albuterol Sulfate [Proair Hfa] 2 puff IH Q4H PRN 07/20/18 Doxycycline Hyclate 100 mg PO BID 07/20/18 Isosorbide Mononitrate [Isosorbide Mononitrate ER] 30 mg PO HS 07/20/18 Montelukast Na [Singulair -] 10 mg PO DAILY 07/20/18 Collagenase Clostridium Hist. [Santyl] 1 applic TP DAILY #90 oint...g. 07/23/18 Review of Systems - Review of Systems Constitutional: reports: No Symptoms Eyes: reports: No Symptoms HENT: reports: No Symptoms Neck: reports: No Symptoms Cardiovascular: reports: No Symptoms Respiratory: reports: No Symptoms Gastrointestinal: reports: No Symptoms Genitourinary: reports: No Symptoms Musculoskeletal: reports: No Symptoms Integumentary: reports: Wound (left toe left foot) Endocrine: reports: No Symptoms Hematology/Lymphatic: reports: No Symptoms Psychiatric: reports: No Symptoms Physical Exam Vital Signs: Vital Signs Temperature 98.1 F 07/28/18 09:57 Pulse Rate 85 07/28/18 09:57 Respiratory Rate 07/28/18 09:57 Blood Pressure 146/83 07/28/18 09:57 O2 Sat by Pulse Oximetry (%) 93 L 07/27/18 20:34 Constitutional: Yes: Well Nourished, No Distress, Calm, Obese Eyes: Yes: Conjunctiva Clear Cardiovascular: Yes: Regular Rate and Rhythm Respiratory: Yes: Regular, Poor Air Entry (bases) Gastrointestinal: Yes: Normal Bowel Sounds, Soft Musculoskeletal: Yes: WNL Extremities: Yes: Other (left toe wound) Wound/Incision: Yes: Clean/Dry, Other Neurological: Yes: Alert, Oriented Psychiatric: Yes: Alert, Oriented Labs: CBC, BMP 07/28/18 10:00 Imaging - Results MRI: Report Reviewed, Image Reviewed Assessment/Plan obese patient with multiple medical problems with copd and htn now with osteo of the left foot copd htn obesity osteo of left foot plan will start patient on ceftriaxone will need picc line rest continue current mgmt wound care
[2018-07-28 11:35] LABS: ALBUMIN 3.6 g/dl (3.4-5.0); ALK PHOS 75 U/L (45-117); ANION GAP 6 MMOL/L (8-16); BILIRUBIN,TOTAL 0.6 mg/dL (0.2-1); BLOOD UREA NITROGEN 14 mg/dL (7-18); CALCIUM 8.7 mg/dL (8.5-10.1); CHLORIDE 100 mmol/L (98-107); CO2 32 mmol/L (21-32); CREATININE 0.9 mg/dL (0.55-1.3); GLUCOSE,RANDOM 89 mg/dL (74-106); POTASSIUM 3.8 mmol/L (3.5-5.1); SGOT/AST 24 U/L (15-37); SGPT/ALT 25 U/L (13-61); SODIUM 138 mmol/L (136-145); TOT PROT 7.1 g/dl (6.4-8.2)
[2018-07-28] MEDS ORDERED: DEXTROSE 5%-WATER 100 ML IVPB ONE (11:56)
[2018-07-28] MEDS: CEFTRIAXONE 2 GM in DEXTROSE 5%-WATER 100 ML IVPB SCH (12:17)
--- NOTE | 2018-07-28 14:22 | EKG ---
Test Reason : Blood Pressure : / mmHG Vent. Rate : 080 BPM Atrial Rate : 080 BPM P-R Int : 152 ms QRS Dur : 114 ms QT Int : 414 ms P-R-T Axes : 036 110 041 degrees QTc Int : 477 ms NORMAL SINUS RHYTHM INCOMPLETE RIGHT BUNDLE BRANCH BLOCK LEFT POSTERIOR FASCICULAR BLOCK ABNORMAL ECG Confirmed by MD ELAI, ARNULFO ([id number]) on 07/28/2018 2:21:55 PM Referred By: Confirmed By:ARNULFO RODRIGEZ MD
--- NOTE | 2018-07-28 15:12 | PN ---
Progress Note, Physician Chief Complaint: toe osteomyelitis History of Present Illness: PT reports feeling well but is frustrated about need for intermediate Abx, is concerned about ability to self administer Abx infusions if sent home w/ PICC line. Cultures show MSSA, per ID to start CTX daily for likely 6 week course Pt afebrile, has chronic cough assoicated w/ COPD but non productive, no N/V/D change in appetite. per past 24hrs INput: 250/ output: 275, net neg 25ml - Current Medication List Current Medications: Active Medications Albuterol Sulfate (Ventolin Hfa Inhaler -) 2 puff IH Q6H PRN PRN Reason: SHORT OF BREATH/WHEEZING Albuterol Sulfate (Ventolin 0.083% Nebulizer Soln -) 1 amp NEB Q6H PRN PRN Reason: SHORT OF BREATH/WHEEZING Last Admin: 07/28/18 04:40 Dose: 1 amp Aspirin (Ecotrin -) 81 mg PO DAILY [facility] Last Admin: 07/28/18 09:55 Dose: 81 mg Heparin Sodium (Porcine) (Heparin -) 5,000 unit SQ TID [facility] Last Admin: 07/28/18 05:44 Dose: 5,000 unit Ceftriaxone Sodium 2 gm/ (Dextrose) 100 mls @ 200 mls/hr IVPB DAILY [facility]; Protocol Last Admin: 07/28/18 12:17 Dose: 200 mls/hr Montelukast Sodium (Singulair -) 10 mg PO HS [facility] Last Admin: 07/27/18 22:00 Dose: 10 mg Prednisone (Deltasone -) 10 mg PO DAILY [facility] Last Admin: 07/28/18 09:55 Dose: 10 mg - Objective Vital Signs: Vital Signs Temperature 98.4 F 07/28/18 14:50 Pulse Rate 76 07/28/18 14:50 Respiratory Rate 18 07/28/18 14:50 Blood Pressure 112/81 07/28/18 14:50 O2 Sat by Pulse Oximetry (%) 93 L 07/28/18 09:00 Constitutional: Yes: Well Nourished, No Distress, Obese Eyes: Yes: Conjunctiva Clear, EOM Intact HENT: Yes: Atraumatic, Normocephalic Neck: Yes: Supple, Trachea Midline Cardiovascular: Yes: Regular Rate and Rhythm (nrml s1 &s2 intensity) Respiratory: Yes: CTA Bilaterally (no wheezing or rales, + prolonged exp phase) Gastrointestinal: Yes: Normal Bowel Sounds, Soft (+ wrap & dresssing/brace on RLE, 2+ pitting edema of b/l LE's, warm, well perfused), Abdomen, Obese (non tender, non distended) Labs: CBC, BMP 07/28/18 10:00 07/28/18 10:00 INR, PTT INR 1.07 (0.83-1.09) 07/27/18 12:00 Problem List - Problems (1) COPD (chronic obstructive pulmonary disease) Assessment/Plan: Pt is a patient of Dr. Donohue is on chronic PO prednisone, continued at same home dose 10mg daily PRN nebs as needed q4hrs, has MDI at bedside for emergency use goal Spo2 88-92% Code(s): J44.9 - CHRONIC OBSTRUCTIVE PULMONARY DISEASE, UNSPECIFIED (2) Osteomyelitis Assessment/Plan: Pt seen by ID consult recommended CTX IV daily & preparation of IR placement of PICC line for intermediate infusion Pt will require nursing instruction/education about use of PICC Line, Abx administration pre-discharge trend fever & wbc curve, presently afebrile w/o leukocytosis PRN tylenol for fever spikes/pain control Code(s): M86.9 - OSTEOMYELITIS, UNSPECIFIED Qualifiers: Osteomyelitis type: unspecified type Osteomyelitis location: foot Laterality: left Qualified Code(s): M86.9 - Osteomyelitis, unspecified (3) Diabetes mellitus Assessment/Plan: A1c at 6.3% presently, monitor glucose especially while on PO prednisone keep on diabetic diet may require PRN insulin if glucose > 250 Code(s): E11.9 - TYPE 2 DIABETES MELLITUS WITHOUT COMPLICATIONS (4) CAD (coronary artery disease) Assessment/Plan: Pt with hx of CAD was initially planned for early August stress testing w/ Dr. Restrepo, advised this may need to be postponed pending clearance of osteo and should have cardiology appt rescheduled prior to discharge c/w ASA daily Code(s): I25.10 - ATHSCL HEART DISEASE OF [place] CORONARY ARTERY W/O ANG PCTRS (5) Morbid obesity Assessment/Plan: will need outpt referral for orthotic practitioner to help w/ ideal diet plan Code(s): E66.01 - MORBID (SEVERE) OBESITY DUE TO EXCESS CALORIES (6) DVT prophylaxis Assessment/Plan: subq heparin 5k units q8hrs for DVT ppx Code(s): FHO3427 -
[2018-07-28] MEDS: MONTELUKAST NA 10 MG TABLET PO SCH (22:12)
[2018-07-29] MEDS ORDERED: ACETAMINOPHEN 325 MG TABLET (FP) PO PRN (03:12)
[2018-07-29] MEDS: HEPARIN NA (PORCINE) 5,000 UNITS/ML 1ML VIAL SQ SCH ×3 (05:08→21:04)
[2018-07-29] MEDS ORDERED: DEXTROSE 5%-WATER 100 ML IVPB ONE (09:00)
[2018-07-29] MEDS: predniSONE 10 MG TABLET (UD) PO SCH (10:32)
[2018-07-29] MEDS: CEFTRIAXONE 2 GM in DEXTROSE 5%-WATER 100 ML IVPB SCH (10:32)
[2018-07-29] MEDS: ASPIRIN COATED 81 MG TABLET.EC PO SCH (10:33)
--- NOTE | 2018-07-29 12:50 | PN ---
Progress Note, Physician History of Present Illness: stable no new issues - Current Medication List Current Medications: Active Medications Acetaminophen (Tylenol -) 650 mg PO Q6H PRN PRN Reason: PAIN Last Admin: 07/29/18 04:31 Dose: 650 mg Albuterol Sulfate (Ventolin Hfa Inhaler -) 2 puff IH Q6H PRN PRN Reason: SHORT OF BREATH/WHEEZING Albuterol Sulfate (Ventolin 0.083% Nebulizer Soln -) 1 amp NEB Q6H PRN PRN Reason: SHORT OF BREATH/WHEEZING Last Admin: 07/28/18 04:40 Dose: 1 amp Aspirin (Ecotrin -) 81 mg PO DAILY [facility] Last Admin: 07/29/18 10:33 Dose: 81 mg Heparin Sodium (Porcine) (Heparin -) 5,000 unit SQ TID [facility] Last Admin: 07/29/18 05:08 Dose: Not Given Ceftriaxone Sodium 2 gm/ (Dextrose) 100 mls @ 200 mls/hr IVPB DAILY [facility]; Protocol Last Admin: 07/29/18 10:32 Dose: 200 mls/hr Montelukast Sodium (Singulair -) 10 mg PO HS [facility] Last Admin: 07/28/18 22:12 Dose: 10 mg Prednisone (Deltasone -) 10 mg PO DAILY [facility] Last Admin: 07/29/18 10:32 Dose: 10 mg - Objective Vital Signs: Vital Signs Temperature 98.2 F 07/29/18 09:00 Pulse Rate 85 07/29/18 09:00 Respiratory Rate 18 07/29/18 09:00 Blood Pressure 142/88 07/29/18 09:00 O2 Sat by Pulse Oximetry (%) 95 07/28/18 20:31 Constitutional: Yes: No Distress, Calm, Obese Cardiovascular: Yes: S1, S2 Respiratory: Yes: Regular, CTA Bilaterally Gastrointestinal: Yes: Normal Bowel Sounds, Soft Musculoskeletal: Yes: WNL Extremities: Yes: Other Wound/Incision: Yes: Dressing Dry and Intact Neurological: Yes: Alert, Oriented Psychiatric: Yes: Alert, Oriented Labs: CBC, BMP 07/28/18 10:00 07/28/18 10:00 INR, PTT INR 1.07 (0.83-1.09) 07/27/18 12:00 Assessment/Plan obese patient with multiple medical problems with copd and htn now with osteo of the left foot copd htn obesity osteo of left foot plan will start patient on ceftriaxone will need picc line rest continue current mgmt wound care
--- NOTE | 2018-07-29 16:33 | PN ---
Progress Note, Physician History of Present Illness: PT reports feeling well but is frustrated about need for bed bug exterminator Abx, is concerned about ability to self administer Abx infusions if sent home w/ PICC line. Cultures show MSSA, per ID to start CTX daily for likely 6 week course Pt afebrile, has chronic cough assoicated w/ COPD but non productive, no N/V/D change in appetite. per past 24hrs INput: 250/ output: 275, net neg 25ml - Current Medication List Current Medications: Active Medications Acetaminophen (Tylenol -) 650 mg PO Q6H PRN PRN Reason: PAIN Last Admin: 07/29/18 04:31 Dose: 650 mg Albuterol Sulfate (Ventolin Hfa Inhaler -) 2 puff IH Q6H PRN PRN Reason: SHORT OF BREATH/WHEEZING Albuterol Sulfate (Ventolin 0.083% Nebulizer Soln -) 1 amp NEB Q6H PRN PRN Reason: SHORT OF BREATH/WHEEZING Last Admin: 07/28/18 04:40 Dose: 1 amp Aspirin (Ecotrin -) 81 mg PO DAILY [facility] Last Admin: 07/29/18 10:33 Dose: 81 mg Heparin Sodium (Porcine) (Heparin -) 5,000 unit SQ TID [facility] Last Admin: 07/29/18 15:15 Dose: Not Given Ceftriaxone Sodium 2 gm/ (Dextrose) 100 mls @ 200 mls/hr IVPB DAILY [facility]; Protocol Last Admin: 07/29/18 10:32 Dose: 200 mls/hr Montelukast Sodium (Singulair -) 10 mg PO HS [facility] Last Admin: 07/28/18 22:12 Dose: 10 mg Prednisone (Deltasone -) 10 mg PO DAILY [facility] Last Admin: 07/29/18 10:32 Dose: 10 mg - Objective Vital Signs: Vital Signs Temperature 98.3 F 07/29/18 14:00 Pulse Rate 72 07/29/18 14:00 Respiratory Rate 22 H 07/29/18 14:00 Blood Pressure 141/85 07/29/18 14:00 O2 Sat by Pulse Oximetry (%) 95 07/28/18 20:31 Constitutional: Yes: Well Nourished, No Distress, Calm, Obese Eyes: Yes: Conjunctiva Clear, EOM Intact HENT: Yes: Atraumatic, Normocephalic (MMM, no scleral pallor or icterus) Neck: Yes: Supple Cardiovascular: Yes: Regular Rate and Rhythm (s1 & s2nrml, no murmurs, rubs) Respiratory: Yes: Regular, CTA Bilaterally Gastrointestinal: Yes: Normal Bowel Sounds, Soft, Abdomen, Obese (nontender, nondistended) Extremities: Yes: Other (L Leg wrapped w/ compression stocking, + b/l LE edema, 2+ distal LE & UE pulses b/l) Labs: CBC, BMP 07/28/18 10:00 07/28/18 10:00 INR, PTT INR 1.07 (0.83-1.09) 07/27/18 12:00 Problem List - Problems (1) COPD (chronic obstructive pulmonary disease) Assessment/Plan: Pt is a patient of Dr. Donohue is on chronic PO prednisone, continued at same home dose 10mg pred daily c/w 10mg daily montelukast PRN nebs as needed q4hrs, has MDI at bedside for emergency use goal Spo2 88-92% Code(s): J44.9 - CHRONIC OBSTRUCTIVE PULMONARY DISEASE, UNSPECIFIED (2) Osteomyelitis Assessment/Plan: Pt seen by ID consult recommended 2gm CTX IV daily - pt to require IR placement of PICC line for mcc infusion (~ 6 weeks) Pt will require nursing instruction/education about use of PICC Line, Abx administration pre-discharge trend fever & wbc curve, presently afebrile w/o leukocytosis PRN tylenol for fever spikes/pain control Code(s): M86.9 - OSTEOMYELITIS, UNSPECIFIED Qualifiers: Osteomyelitis type: unspecified type Osteomyelitis location: foot Laterality: left Qualified Code(s): M86.9 - Osteomyelitis, unspecified (3) Diabetes mellitus Assessment/Plan: A1c at 6.3% presently, monitor glucose especially while on PO prednisone keep on diabetic diet may require PRN insulin if glucose > 250 Code(s): E11.9 - TYPE 2 DIABETES MELLITUS WITHOUT COMPLICATIONS (4) CAD (coronary artery disease) Assessment/Plan: Pt with hx of CAD was initially planned for early August stress testing w/ Dr. Restrepo, advised this may need to be postponed pending clearance of osteo and should have cardiology appt rescheduled prior to discharge c/w ASA daily keep on sodium restricted diet Code(s): I25.10 - ATHSCL HEART DISEASE OF [place] CORONARY ARTERY W/O ANG PCTRS (5) Morbid obesity Assessment/Plan: will likely benefit from outpt referral for intermodal owner operator truck driver to help w/ ideal diet plan Code(s): E66.01 - MORBID (SEVERE) OBESITY DUE TO EXCESS CALORIES (6) DVT prophylaxis Assessment/Plan: subq heparin 5000 units q8hrs for DVT ppx Code(s): [id number] -
[2018-07-29] MEDS: MONTELUKAST NA 10 MG TABLET PO SCH (21:06)
[2018-07-30] MEDS: HEPARIN NA (PORCINE) 5,000 UNITS/ML 1ML VIAL SQ SCH ×3 (05:39→23:00)
[2018-07-30 07:07] LABS: BASO % 0.8 % (0-2.0); EOS % 4.7 % (0-4.5); HEMATOCRIT 41.7 % (35.4-49); HEMOGLOBIN 13.2 GM/dL (11.7-16.9); LYMPH % 14.9 % (8-40); MCHC 31.7 g/dl (32.0-35.9); MEAN CELL VOLUME 69.5 fl (80-96); MEAN PLT VOLUME 7.8 fl (7.5-11.1); MONO % 8.8 % (3.8-10.2); NEUT % 70.8 % (42.8-82.8); PLATELET COUNT 169 K/MM3 (134-434); RDW 16.7 % (11.9-15.9); WHITE BLOOD COUNT 7.5 K/mm3 (4.0-10.0)
[2018-07-30 07:31] LABS: ALBUMIN 3.7 g/dl (3.4-5.0); ALK PHOS 78 U/L (45-117); ANION GAP 4 MMOL/L (8-16); BILIRUBIN,TOTAL 0.6 mg/dL (0.2-1); BLOOD UREA NITROGEN 13 mg/dL (7-18); CALCIUM 8.8 mg/dL (8.5-10.1); CHLORIDE 98 mmol/L (98-107); CO2 36 mmol/L (21-32); GLUCOSE,RANDOM 92 mg/dL (74-106); PHOSPHOROUS 3.9 mg/dL (2.5-4.9); POTASSIUM 4.3 mmol/L (3.5-5.1); SGOT/AST 25 U/L (15-37); SGPT/ALT 23 U/L (13-61); SODIUM 138 mmol/L (136-145); TOT PROT 7.4 g/dl (6.4-8.2)
[2018-07-30] MEDS ORDERED: DEXTROSE 5%-WATER 100 ML IVPB ONE (10:10)
[2018-07-30] MEDS: ASPIRIN COATED 81 MG TABLET.EC PO SCH (10:30)
[2018-07-30] MEDS: predniSONE 10 MG TABLET (UD) PO SCH (10:30)
[2018-07-30] MEDS: CEFTRIAXONE 2 GM in DEXTROSE 5%-WATER 100 ML IVPB SCH (10:30)
[2018-07-30] MEDS: ALBUTEROL SO4 0.083% IH SOL 2.5 MG/3 ML VIAL.NEB. NEB PRN ×2 (10:34→20:01)
--- NOTE | 2018-07-30 10:56 | PN ---
Physical Exam: SUBJECTIVE: Patient seen and examined at the bedside. OBJECTIVE: Vital Signs Period Temp Pulse Resp BP Sys/Santiago Pulse Ox Last 24 Hr 97.8 F-98.5 F 70-79 20-22 113-141/72-85 95 GENERAL: Awake, alert, and fully oriented, in no acute distress. HEAD: Normal with no signs of trauma. EYES: Pupils equal, round and reactive to light, extraocular movements intact, sclera anicteric, conjunctiva clear. No lid lag. EARS, NOSE, THROAT: Ears normal, nares patent, oropharynx clear without exudates. Moist mucous membranes. NECK: Normal range of motion, supple without lymphadenopathy, JVD, or masses. LUNGS: diminished bilaterally, on home oxygen at 2-3 liters. HEART: Regular rate and rhythm, ABDOMEN: obese abdomen + bowel sounds MUSCULOSKELETAL: Normal range of motion at all joints. No bony deformities or tenderness. No CVA tenderness. UPPER EXTREMITIES: 2+ pulses, warm, well-perfused. No cyanosis. No clubbing. No peripheral edema. LOWER EXTREMITIES: bilateraly lymphedema, osteomyelitis of left foot. NEUROLOGICAL: Normal speech. Normal gait. PSYCHIATRIC: Cooperative. Good eye contact. Appropriate mood and affect. Laboratory Results - last 24 hr 07/30/18 07/30/18 06:20 06:20 WBC 7.5 RBC 6.00 H Hgb 13.2 Hct 41.7 MCV 69.5 L MCH 22.0 L MCHC 31.7 L RDW 16.7 H Plt Count 169 MPV 7.8 Absolute Neuts (auto) 5.3 Neutrophils % 70.8 Lymphocytes % 14.9 Monocytes % 8.8 Eosinophils % 4.7 H Basophils % 0.8 Nucleated RBC % 0 Sodium 138 Potassium 4.3 Chloride 98 Carbon Dioxide 36 H Anion Gap 4 L BUN 13 Creatinine 1.0 Creat Clearance w eGFR 76.22 Random Glucose 92 Calcium 8.8 Phosphorus 3.9 Magnesium 2.0 Total Bilirubin 0.6 AST 25 ALT 23 Alkaline Phosphatase 78 Total Protein 7.4 Albumin 3.7 Active Medications Generic Name Dose Route Start Last Admin Trade Name Freq PRN Reason Stop Dose Admin Acetaminophen 650 mg 07/29/18 03:12 07/29/18 04:31 Tylenol - PO 650 mg Q6H PRN Administration PAIN Albuterol Sulfate 2 puff 07/27/18 11:45 Ventolin Hfa Inhaler - IH Q6H PRN SHORT OF BREATH/WHEEZING Albuterol Sulfate 1 amp 07/27/18 21:36 07/30/18 10:34 Ventolin 0.083% Nebulizer Soln - NEB 1 amp Q6H PRN Administration SHORT OF BREATH/WHEEZING Aspirin 81 mg 07/28/18 10:00 07/30/18 10:30 Ecotrin - PO 81 mg DAILY JALYN Administration Heparin Sodium (Porcine) 5,000 unit 07/27/18 22:00 07/30/18 05:39 Heparin - SQ Not Given TID JALYN Ceftriaxone Sodium 2 gm/ 100 mls @ 200 mls/hr 07/28/18 11:45 07/30/18 10:30 Dextrose IVPB 200 mls/hr DAILY JALYN Administration Protocol Montelukast Sodium 10 mg 07/27/18 22:00 07/29/18 21:06 Singulair - PO 10 mg HS JALYN Administration Prednisone 10 mg 07/28/18 10:00 07/30/18 10:30 Deltasone - PO 10 mg DAILY JALYN Administration ASSESSMENT/PLAN: Patient is a 62 year old male with a significant past medical history of COPD ( on home O2 at 2-3 liters), bilateral lymphedema (left >right), CHF, collapsed left lung 2009, GAY. He was sent in by vascular surgery (Dr. 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 Patient had an MRI on 07/20/18 consistent with osteomylitis of left great toe. Wound culture of this foot shows staph aureus. ID specialist Dr Davenport consulted and patient to be sent home with Ceftriaxone 2 grams for 6 more weeks. Imaging: MRI 07/27/18: 1. Soft tissue edema of the foot extending into the toes. 2. Focal open wound over the plantar medial aspect of the first toe distal tuft of the distal phalanx area 3. Mild bone marrow edema and enhancement of the distal tuft of the distal phalanx of the hallux which in the setting of an infectious process is most consistent with osteomyelitis. ID: Left foot osteomyelitis per MRI 07/20/18 Vancomycin initiated in the ED. will be sent home on Ceftriaxone 2grams for a total of 6 weeks per ID. Patient denies having any fevers or chills. Had a PICC line placed today and will be serviced by [facility]. Pulm: COPD. home oxygen dependent. Albuterol q [address] back on his chronic steroids 10 mg daily Pulmonary follow up outpatient Card: Exertional chest pain: cath as outpt for August 14. Cardiology Dr. Restrepo H/o Diastolic CHF: not active not on lasix at home. Endocrine Hmga1c 6.8 on previous admission, currently 6.3% Outpatient follow up with PCP DISCHARGE: discharge home with [facility]. Ceftriaxone 2grams for Osteomyelitis x 6 weeks. Visit type - Emergency Visit Emergency Visit: Yes ED Registration Date: 07/27/18 Care time: The patient presented to the Emergency Department on the above date and was hospitalized for further evaluation of their emergent condition. - New Patient This patient is new to me today: No - Critical Care Critical Care patient: No - Discharge Referral Referred to [facility] No
--- NOTE | 2018-07-30 11:28 | PN ---
Progress Note, Physician History of Present Illness: doing well no new issues - Current Medication List Current Medications: Active Medications Acetaminophen (Tylenol -) 650 mg PO Q6H PRN PRN Reason: PAIN Last Admin: 07/29/18 04:31 Dose: 650 mg Albuterol Sulfate (Ventolin Hfa Inhaler -) 2 puff IH Q6H PRN PRN Reason: SHORT OF BREATH/WHEEZING Albuterol Sulfate (Ventolin 0.083% Nebulizer Soln -) 1 amp NEB Q6H PRN PRN Reason: SHORT OF BREATH/WHEEZING Last Admin: 07/30/18 10:34 Dose: 1 amp Aspirin (Ecotrin -) 81 mg PO DAILY [facility] Last Admin: 07/30/18 10:30 Dose: 81 mg Heparin Sodium (Porcine) (Heparin -) 5,000 unit SQ TID [facility] Last Admin: 07/30/18 05:39 Dose: Not Given Ceftriaxone Sodium 2 gm/ (Dextrose) 100 mls @ 200 mls/hr IVPB DAILY [facility]; Protocol Last Admin: 07/30/18 10:30 Dose: 200 mls/hr Montelukast Sodium (Singulair -) 10 mg PO HS [facility] Last Admin: 07/29/18 21:06 Dose: 10 mg Prednisone (Deltasone -) 10 mg PO DAILY [facility] Last Admin: 07/30/18 10:30 Dose: 10 mg - Objective Vital Signs: Vital Signs Temperature 98.4 F 07/30/18 09:00 Pulse Rate 79 07/30/18 09:00 Respiratory Rate 22 H 07/30/18 09:00 Blood Pressure 134/72 07/30/18 09:00 O2 Sat by Pulse Oximetry (%) 95 07/29/18 21:00 Constitutional: Yes: No Distress, Calm Eyes: Yes: Conjunctiva Clear Cardiovascular: Yes: S1, S2 Respiratory: Yes: Regular, CTA Bilaterally Gastrointestinal: Yes: Normal Bowel Sounds, Soft Musculoskeletal: Yes: WNL Extremities: Yes: Other Neurological: Yes: Alert, Oriented Psychiatric: Yes: Alert, Oriented Labs: CBC, BMP 07/30/18 06:20 07/30/18 06:20 INR, PTT INR 1.07 (0.83-1.09) 07/27/18 12:00 Assessment/Plan obese patient with multiple medical problems with copd and htn now with osteo of the left foot copd htn obesity osteo of left foot plan ceftriaxone for 6 weeks wound care esr,crp weekly rest as per the team
--- NOTE | 2018-07-30 11:35 | DS ---
Physical Exam: SUBJECTIVE: Patient seen and examined OBJECTIVE: Vital Signs Period Temp Pulse Resp BP Sys/Santiago Pulse Ox Last 24 Hr 97.8 F-98.5 F 70-79 20-22 113-141/72-85 95 PHYSICAL EXAM GENERAL: The patient is awake, alert, and fully oriented, in no acute distress. HEAD: Normal with no signs of trauma. EYES: PERRL, extraocular movements intact, sclera anicteric, conjunctiva clear. ENT: Ears normal, nares patent, oropharynx clear without exudates, moist mucous membranes. NECK: Trachea midline, full range of motion, supple. LUNGS: Breath sounds equal, clear to auscultation bilaterally, no wheezes, no crackles, no accessory muscle use. HEART: Regular rate and rhythm, S1, S2 without murmur, rub or gallop. ABDOMEN: Soft, nontender, nondistended, normoactive bowel sounds, no guarding, no rebound, no hepatosplenomegaly, no masses. EXTREMITIES: 2+ pulses, warm, well-perfused, no edema. NEUROLOGICAL: Cranial nerves II through XII grossly intact. Normal speech, gait not observed. PSYCH: Normal mood, normal affect. SKIN: Warm, dry, normal turgor, no rashes or lesions noted. LABS Laboratory Results - last 24 hr 07/30/18 07/30/18 06:20 06:20 WBC 7.5 RBC 6.00 H Hgb 13.2 Hct 41.7 MCV 69.5 L MCH 22.0 L MCHC 31.7 L RDW 16.7 H Plt Count 169 MPV 7.8 Absolute Neuts (auto) 5.3 Neutrophils % 70.8 Lymphocytes % 14.9 Monocytes % 8.8 Eosinophils % 4.7 H Basophils % 0.8 Nucleated RBC % 0 Sodium 138 Potassium 4.3 Chloride 98 Carbon Dioxide 36 H Anion Gap 4 L BUN 13 Creatinine 1.0 Creat Clearance w eGFR 76.22 Random Glucose 92 Calcium 8.8 Phosphorus 3.9 Magnesium 2.0 Total Bilirubin 0.6 AST 25 ALT 23 Alkaline Phosphatase 78 C-Reactive Protein 1.3 H Total Protein 7.4 Albumin 3.7 HOSPITAL COURSE: Date of Admission:07/27/18 Date of Discharge: 07/30/18 Discharge Summary Reason For Visit: OSTEOMYELITIS Current Active Problems COPD (chronic obstructive pulmonary disease) (Acute) DVT prophylaxis (Acute) Osteomyelitis (Acute) Condition: Improved - Instructions Diet, Activity, Other Instructions: Mr. Bertrand: You were found to have osteomyelitis of your left great toe. Please continueCeftriaxone 2 gram for 6 more weeks for left great toe osteomyelitis. You will be serviced with [place]. Dr. Davenport is the ID specialist that will coordinate the antibioticis. Please continue all your other home medications as ordered. Thank you Referrals: Dheeraj Davenport MD [Staff Physician] - 1 Week Disposition: HOME - Home Medications Comprehensive Discharge Medication List: Ambulatory Orders Furosemide [Lasix -] 20 mg PO DAILY 03/09/17 Prednisone 10 mg PO DAILY 03/09/17 Albuterol Sulfate Inhaler - [Ventolin HFA Inhaler -] 1 puff IH Q4H PRN #1 inhaler 03/12/17 Aspirin Coated [Ecotrin -] 81 mg PO DAILY #30 tablet.ec 03/12/17 Albuterol Sulfate [Proair Hfa] 2 puff IH Q4H PRN 07/20/18 Isosorbide Mononitrate [Isosorbide Mononitrate ER] 30 mg PO HS 07/20/18 Montelukast Na [Singulair -] 10 mg PO DAILY 07/20/18 Collagenase Clostridium Hist. [Santyl] 1 applic TP DAILY #90 oint...g. 07/23/18 Ceftriaxone [Rocephin -] 2 gm IVPB DAILY #42 vial 07/30/18
[2018-07-30 13:55] VITALS: BMI 43.4
[2018-07-30 18:34] VITALS: PULSE 71
--- NOTE | 2018-07-30 18:59 | DS ---
Physical Exam: SUBJECTIVE: Patient seen and examined a the bedside. for discharge home today for outpatient IV infusion for 6 weeks. OBJECTIVE: Vital Signs Period Temp Pulse Resp BP Sys/Santiago Pulse Ox Last 24 Hr 97.8 F-98.4 F 71-95 19-22 113-151/70-93 95-95 PHYSICAL EXAM GENERAL: Awake, alert, and fully oriented, in no acute distress. HEAD: Normal with no signs of trauma. EYES: Pupils equal, round and reactive to light, extraocular movements intact, sclera anicteric, conjunctiva clear. No lid lag. EARS, NOSE, THROAT: Ears normal, nares patent, oropharynx clear without exudates. Moist mucous membranes. NECK: Normal range of motion, supple without lymphadenopathy, JVD, or masses. LUNGS: diminished bilaterally, on home oxygen at 2-3 liters. HEART: Regular rate and rhythm, ABDOMEN: obese abdomen + bowel sounds MUSCULOSKELETAL: Normal range of motion at all joints. No bony deformities or tenderness. No CVA tenderness. UPPER EXTREMITIES: 2+ pulses, warm, well-perfused. No cyanosis. No clubbing. No peripheral edema. LOWER EXTREMITIES: bilateraly lymphedema, osteomyelitis of left foot. NEUROLOGICAL: Normal speech. Normal gait. PSYCHIATRIC: Cooperative. Good eye contact. Appropriate mood and affect. LABS Laboratory Results - last 24 hr 07/30/18 07/30/18 07/30/18 06:20 06:20 06:20 WBC 7.5 RBC 6.00 H Hgb 13.2 Hct 41.7 MCV 69.5 L MCH 22.0 L MCHC 31.7 L RDW 16.7 H Plt Count 169 MPV 7.8 Absolute Neuts (auto) 5.3 Neutrophils % 70.8 Lymphocytes % 14.9 Monocytes % 8.8 Eosinophils % 4.7 H Basophils % 0.8 Nucleated RBC % 0 ESR 17 Sodium 138 Potassium 4.3 Chloride 98 Carbon Dioxide 36 H Anion Gap 4 L BUN 13 Creatinine 1.0 Creat Clearance w eGFR 76.22 Random Glucose 92 Calcium 8.8 Phosphorus 3.9 Magnesium 2.0 Total Bilirubin 0.6 AST 25 ALT 23 Alkaline Phosphatase 78 C-Reactive Protein 1.3 H Total Protein 7.4 Albumin 3.7 HOSPITAL COURSE: Date of Admission:07/27/18 Date of Discharge: 07/30/18 Patient is a 62 year old male with a significant past medical history of COPD ( on home O2 at 2-3 liters), bilateral lymphedema (left >right), CHF, collapsed left lung 2010, GAY. He was sent in by vascular surgery (Dr. Lpoez) for admission and initiation of retirement IV antibiotics for left great toe osteomyelitis. Patient had an MRI on 07/20/18 consistent with osteomylitis of left great toe. Wound culture of this foot shows staph aureus. ID specialist Dr Davenport consulted and patient to be sent home with Ceftriaxone 2grams for 6 more weeks. Imaging: MRI 07/27/18: 1. Soft tissue edema of the foot extending into the toes. 2. Focal open wound over the plantar medial aspect of the first toe distal tuft of the distal phalanx area 3. Mild bone marrow edema and enhancement of the distal tuft of the distal phalanx of the hallux which in the setting of an infectious process is most consistent with osteomyelitis. HOSPITAL COURSE BY PROBLEM LIST: ID: Left foot osteomyelitis per MRI 07/20/18 Vancomycin initiated in the ED. will be sent home on Ceftriaxone 2grams for a total of 6 weeks per ID. Patient denies having any fevers or chills. Had a PICC line placed today and will be serviced by [facility]. Pulm: COPD. home oxygen dependent. Albuterol q [address] back on his chronic steroids 10 mg daily Pulmonary follow up outpatient Card: Exertional chest pain: cath as outpt for August 14. Cardiology Dr. Restrepo H/o Diastolic CHF: not active not on lasix at home. Endocrine Hmga1c 6.8 on previous admission, currently 6.3% Outpatient follow up with PCP DISCHARGE: discharge home with [facility]. Ceftriaxone 2grams for Osteomyelitis x 6 weeks. Minutes to complete discharge: 60 Discharge Summary Reason For Visit: OSTEOMYELITIS Current Active Problems COPD (chronic obstructive pulmonary disease) (Acute) DVT prophylaxis (Acute) Osteomyelitis (Acute) Condition: Improved - Instructions Diet, Activity, Other Instructions: Mr. Bertrand: You were found to have osteomyelitis of your left great toe. Please continue Ceftriaxone 2 gram for 6 more weeks for left great toe osteomyelitis. Your home infusions will be serviced with [facility] [place]. Dr. Davenport is the ID specialist that will coordinate the antibioticis with [facility]. Please continue all your other home medications as ordered. Thank you for allowing us to care for you. Referrals: Dheeraj Davenport MD [Staff Physician] - 1 Week Disposition: HOME - Home Medications Comprehensive Discharge Medication List: Ambulatory Orders Furosemide [Lasix -] 20 mg PO DAILY 03/09/17 Prednisone 10 mg PO DAILY 03/09/17 Albuterol Sulfate Inhaler - [Ventolin HFA Inhaler -] 1 puff IH Q4H PRN #1 inhaler 03/12/17 Aspirin Coated [Ecotrin -] 81 mg PO DAILY #30 tablet.ec 03/12/17 Albuterol Sulfate [Proair Hfa] 2 puff IH Q4H PRN 07/20/18 Isosorbide Mononitrate [Isosorbide Mononitrate ER] 30 mg PO HS 07/20/18 Montelukast Na [Singulair -] 10 mg PO DAILY 07/20/18 Collagenase Clostridium Hist. [Santyl] 1 applic TP DAILY #90 oint...g. 07/23/18 Ceftriaxone [Rocephin -] 2 gm IVPB DAILY #42 vial 07/30/18 This patient is new to me today: No Emergency Visit: Yes ED Registration Date: 07/27/18 Care time: The patient presented to the Emergency Department on the above date and was hospitalized for further evaluation of their emergent condition. Critical Care patient: No - Discharge Referral Referred to [facility] No
[2018-07-30] MEDS: MONTELUKAST NA 10 MG TABLET PO SCH (23:00)
[2018-07-30 23:07] VITALS: BP 107/55; TEMP 97.8
== END 2018-07-31 05:07 | disposition home or self-care (01) | DRG 638 ==
LOC: JER 10:21 → JERBED 14:25 → J5S 18:10
PROVIDERS: ADMIT Internal Medicine; ATTEND Nurse Practitioner Family
PROC: 02HV33Z Insertion of Infusion Device into Superior Vena Cava, Percutaneous Approach (ICD-10-PCS; principal; 2018-07-30)
PROC: B548ZZA Ultrasonography of Superior Vena Cava, Guidance (ICD-10-PCS; 2018-07-30)
DX: E11.69 Type 2 diabetes mellitus with other specified complication (principal); I50.32 Chronic diastolic (congestive) heart failure; M86.8X7 Other osteomyelitis, ankle and foot; Z68.41 Body mass index [BMI] 40.0-44.9, adult; J44.9 Chronic obstructive pulmonary disease, unspecified; Z99.81 Dependence on supplemental oxygen; G47.33 Obstructive sleep apnea (adult) (pediatric); I11.0 Hypertensive heart disease with heart failure; I25.10 Atherosclerotic heart disease of native coronary artery without angina pectoris; E66.01 Morbid (severe) obesity due to excess calories
CPT/HCPCS: 11042; 36415; 36569; 80053; 83036; 83735; 84100; 85025; 85610; 85651; 86140; 86850; 86900; 86901; 93005; 93010; 94640; 99282-25; J1644

== ENCOUNTER 2018-11-20 08:19 | Inpatient (IN) | payer OTHER, MEDICARE ==
--- NOTE | 2018-11-20 09:20 | PDOC ---
History of Present Illness - General Chief Complaint: Shortness of Breath Stated Complaint: PAIN Time Seen by Provider: 11/20/18 09:01 - History of Present Illness Initial Comments: 11/20/18 09:03 62 year old male with a significant past medical history of COPD (on home O2 at 2-3 liters), bilateral lymphedema (left >right), CHF, collapsed left lung 2009, GAY who presents with 3 weeks of 10/10 burning central chest pain that has been worsening in severity, cough productive of yellow phlegm and a fever of 100F last night. The patient also reports 4 days of R forearm redness and warmth surrounding an abrasion from hitting a brick wall. Prior the arrival the patient took 4 nitros and used his inhaler 9 times. Meds: prednisone, lasix 20, nitro, montelukast, proair PCP: Alexey [facility] GENERAL/CONSTITUTIONAL: No weakness. HEAD, EYES, EARS, NOSE AND THROAT: No change in vision. No ear pain or discharge. No sore throat. CARDIOVASCULAR: See HPI RESPIRATORY: No cough, wheezing, or hemoptysis. GASTROINTESTINAL: No nausea, vomiting, diarrhea or constipation. GENITOURINARY: No dysuria, frequency, or change in urination. MUSCULOSKELETAL: No joint or muscle swelling or pain. No neck or back pain. SKIN: No rash NEUROLOGIC: No headache, vertigo, loss of consciousness, or change in strength/ sensation. PE GENERAL: Awake, alert, and fully oriented, in no acute distress HEAD: No signs of trauma, normocephalic, atraumatic EYES: EOMI, sclera anicteric, conjunctiva clear ENT: oropharynx clear without exudates. Moist mucosa NECK: Normal ROM, supple LUNGS: No distress, speaks full sentences, clear to auscultation bilaterally HEART: Regular rate and rhythm, normal S1 and S2, no murmurs, rubs or gallops, peripheral pulses normal and equal bilaterally. ABDOMEN: Soft, nontender, umbilical hernia, normoactive bowel sounds. No guarding, no rebound. No masses EXTREMITIES : + R forearm abrasion w/ surrending erythma extending aroudn elbow and dorsal aspect of forearm, warm to touch. Normal range of motion, +BLE lymphedema w/ skin change. No clubbing or cyanosis. NEUROLOGICAL: Cranial nerves II through XII grossly intact. Normal speech, no focal sensorimotor deficits MDM 62 year old male with a significant past medical history of COPD (on home O2 at 2-3 liters), bilateral lymphedema (left >right), CHF, collapsed left lung 2009, GAY who presents with 3 weeks of 10/10 burning central chest pain that has been worsening in severity, cough productive of yellow phlegm and a fever of 100F last night. DDX including but not limited to: copd exacerbation vs chf exacerbation cellulitis r/o acs W/U: - cbc, cmp, trop, bnp, blood culture, ekg, cxr ED Course: EKG: normal sinus rhythm HR 91, R axis, incomplete RBBB, no interval abnormalities, narrow QRS, ST and T wave segments and morphology normal. CXR: possible L lower lobe infiltrate labs wbc -11.5 trop - negative bnp 675 Patient previously got vanvomycin for prior episodes and past cellulitis per chart review Will give one dose vancomycin here ID consult placed Will admit to medicine Lorin Milton, PGY2 Emergency Medicine 11/20/18 11:10 Past History - Past Medical History Allergies/Adverse Reactions: Allergies Allergy/AdvReac Type Severity Reaction Status Date / Time No Known Allergies Allergy Verified 11/20/18 08:50 Home Medications: Ambulatory Orders Furosemide [Lasix -] 20 mg PO DAILY 03/09/17 Prednisone 20 mg PO ASDIR 03/09/17 Albuterol Sulfate [Proair Hfa] 2 puff IH Q4H PRN 07/20/18 Isosorbide Mononitrate [Isosorbide Mononitrate ER] 30 mg PO HS 07/20/18 Montelukast Na [Singulair -] 10 mg PO DAILY 07/20/18 Doxycycline Hyclate 100 mg PO BID 11/20/18 Anemia: Yes Cancer: No Cardiac Disorders: Yes CVA: No COPD: Yes CHF: No Dementia: No Diabetes: No GI Disorders: No Disorders: No HTN: Yes Hypercholesterolemia: Yes Liver Disease: No Seizures: No Thyroid Disease: No Other medical history: chest tube - Surgical History Abdominal Surgery: No Appendectomy: No Cardiac Surgery: No Cholecystectomy: No Lung Surgery: Yes Neurologic Surgery: No Orthopedic Surgery: No - Immunization History Immunization Up to Date: Yes - Suicide/Smoking/Psychosocial Hx Smoking History: Former smoker Have you smoked in the past 12 months: No If you are a former smoker, when did you quit?: 10 yres ago Information on smoking cessation initiated: No Hx Alcohol Use: No Drug/Substance Use Hx: No Substance Use Type: None Hx Substance Use Treatment: No *Physical Exam - Vital Signs Last Vital Signs Temp Pulse Resp BP Pulse Ox 98.6 F 84 18 124/76 100 11/20/18 08:22 11/20/18 08:22 11/20/18 08:22 11/20/18 08:22 11/20/18 08:22 ED Treatment Course - LABORATORY CBC & Chemistry Diagram: 11/20/18 10:00 11/20/18 10:00 *DC/Admit/Observation/Transfer Diagnosis at time of Disposition: Cellulitis - Discharge Dispostion Condition at time of disposition: Stable Decision to Admit order: Yes - Referrals Referrals: Leti Lopez MD [Primary Care Provider] - - Patient Instructions - Post Discharge Activity
--- NOTE | 2018-11-20 09:22 | PDOC ---
Attending Attestation - Resident Resident Name: Lorin Milton - ED Attending Attestation I have performed the following: I have examined & evaluated the patient, The case was reviewed & discussed with the resident, I agree w/resident's findings & plan, Exceptions are as noted - HPI HPI: 11/20/18 14:05 Reviewed Residents HPI - Physicial Exam PE: 11/20/18 14:05 Reviewed residents PE - Medical Decision Making 11/20/18 14:20 62 year old male with a significant past medical history of COPD (on home O2 at 2-3 liters), bilateral lymphedema (left >right), CHF, collapsed left lung 2009, GAY who presents with 3 weeks of 10/10 burning central chest pain that has been worsening in severity, cough productive of yellow phlegm and a fever of 100F last night. Positive cellulitis noted to patient's right upper extremity Given comorbidities patient will require admission for IV antibiotics
[2018-11-20 10:15] LABS: BASO % 0.6 % (0-2.0); EOS % 0.5 % (0-4.5); HEMATOCRIT 41.1 % (35.4-49); HEMOGLOBIN 13.2 GM/dL (11.7-16.9); LYMPH % 4.2 % (8-40); MCH 21.8 pg (25.7-33.7); MCHC 32.1 g/dl (32.0-35.9); MONO % 6.2 % (3.8-10.2); NEUT % 88.5 % (42.8-82.8); PLATELET COUNT 172 K/MM3 (134-434); RBC 6.04 M/mm3 (4.00-5.60); RDW 15.8 % (11.9-15.9); WHITE BLOOD COUNT 11.2 K/mm3 (4.0-10.0)
[2018-11-20 10:37] LABS: ALBUMIN 3.6 g/dl (3.4-5.0); BLOOD UREA NITROGEN 18.3 mg/dL (7-18); CREATININE 1.1 mg/dL (0.55-1.3); N-TERMINAL BNP 675.1 pg/ml (5-125); POTASSIUM 4.4 mmol/L (3.5-5.1); TOT PROT 7.1 g/dl (6.4-8.2)
[2018-11-20] MEDS ORDERED: VANCOMYCIN HCL 1,500 MG in DEXTROSE 5%-WATER - 500 ML IVPB ONE (10:52)
--- NOTE | 2018-11-20 11:25 | EKG ---
Test Reason : Blood Pressure : / mmHG Vent. Rate : 091 BPM Atrial Rate : 091 BPM P-R Int : 122 ms QRS Dur : 114 ms QT Int : 386 ms P-R-T Axes : 070 194 046 degrees QTc Int : 474 ms NORMAL SINUS RHYTHM POSSIBLE LEFT ATRIAL ENLARGEMENT RIGHT SUPERIOR AXIS DEVIATION INCOMPLETE RIGHT BUNDLE BRANCH BLOCK ABNORMAL ECG WHEN COMPARED WITH ECG OF 27-JUL-2018 12:28, LEFT POSTERIOR FASCICULAR BLOCK IS NO LONGER PRESENT Confirmed by Rusty Fernandes MD ([id number]) on 11/20/2018 11:24:34 AM Referred By: Confirmed By:Rusty Fernandes MD
[2018-11-20 12:34] LABS: EPI CELLS 0.5 /HPF (0-5/HPF); HYALINE CASTS 0 /lpf (0-8); PH,URINE 6.5 (5.0-8.0); URINE APPEARANCE CLEAR; URINE BACTERIA 0.7 /hpf (NEGATIVE); URINE BILIRUBIN NEGATIVE (NEGATIVE); URINE COLOR YELLOW; URINE GLUCOSE (UA) NEGATIVE (NEGATIVE); URINE KETONE NEGATIVE (NEGATIVE); URINE LEUK ESTERASE NEGATIVE (NEGATIVE); URINE NITRITE NEGATIVE (NEGATIVE); URINE PROTEIN 2+ (NEGATIVE); URINE WBC 2 /hpf (0-5)
[2018-11-20 13:16] LABS: URINE RBC 20.4 /hpf (0-4); YEAST NONE SEEN (NEGATIVE)
[2018-11-20] MEDS ORDERED: CLINDAMYCIN 600MG PREMIX IVPB 600 MG/50 ML BAG IVPB SCH (13:45)
[2018-11-20] MEDS ORDERED: predniSONE 10 MG TABLET (UD) PO SCH (13:45)
--- NOTE | 2018-11-20 13:55 | HP ---
CHIEF COMPLAINT: foerearm redness and pain; PCP: Dr. Blackburn HISTORY OF PRESENT ILLNESS: 62 y/o male with PMH of COPD (on 2L home o2), CHF, HTN, GAY, B/L lymphedema presents to the ED with complaints of forearm redness and pain. patient states that he thinks he was bit on monday possibly by a spider and since then has been having a lot of pain and increased redness to the right forearm, he did not try to take anything for the pain but he says its gotten progressively worse. the arm itself is very painful- he denies any systemic symptoms . he does note that he also thinks his COPD is getting worse, he states that no inhaled steroids help him so all he uses is his rescue inhaler however he does attest to coughing up yellow sputum, but no change in his oxygen requirements. he states that he feels he is the type of patient that no medication helps- whenerv he tries inhaled steroids he always ends up[ in the hospital with a lung infection. he denies any recent travel or sick contacts ER course was notable for: (1)wbc 11.2; other labs wnl (2)CXR: no evidence of pneumonia or effusions (3)given 1.5 grams of vancomycin; dr. mc consulted Recent Travel: denies PAST MEDICAL HISTORY: see above PAST SURGICAL HISTORY: Social History: Smoking: quit 10 years ago; was smoking since age of 17 Alcohol:social Drugs: used to use [employer] back in the day Family History: mother and father both from heart disease Allergies No Known Allergies Allergy (Verified 11/20/18 08:50) HOME MEDICATIONS: Home Medications Medication Instructions Recorded Furosemide [Lasix -] 20 mg PO DAILY 03/09/17 Prednisone 20 mg PO ASDIR 03/09/17 Albuterol Sulfate [Proair Hfa] 2 puff IH Q4H PRN 07/20/18 Isosorbide Mononitrate [Isosorbide 30 mg PO HS 07/20/18 Mononitrate ER] Montelukast Na [Singulair -] 10 mg PO DAILY 07/20/18 Doxycycline Hyclate 100 mg PO BID 11/20/18 REVIEW OF SYSTEMS CONSTITUTIONAL: Absent: fever, chills, diaphoresis, generalized weakness, malaise, loss of appetite, weight change HEENT: Absent: rhinorrhea, nasal congestion, throat pain, throat swelling, difficulty swallowing, mouth swelling, ear pain, eye pain, visual changes CARDIOVASCULAR: Absent: chest pain, syncope, palpitations, irregular heart rate, lightheadedness , peripheral edema RESPIRATORY: Present: cough Absent: cough, shortness of breath, dyspnea with exertion, orthopnea, wheezing, stridor, hemoptysis GASTROINTESTINAL: Absent: abdominal pain, abdominal distension, nausea, vomiting, diarrhea, constipation, melena, hematochezia GENITOURINARY: Absent: dysuria, frequency, urgency, hesitancy, hematuria, flank pain, genital pain MUSCULOSKELETAL: Absent: myalgia, arthralgia, joint swelling, back pain, neck pain SKIN: Present: cellulitis Absent: rash, itching, pallor HEMATOLOGIC/IMMUNOLOGIC: Absent: easy bleeding, easy bruising, lymphadenopathy, frequent infections ENDOCRINE: Absent: unexplained weight gain, unexplained weight loss, heat intolerance, cold intolerance NEUROLOGIC: Absent: headache, focal weakness or paresthesias, dizziness, unsteady gait, seizure, mental status changes, bladder or bowel incontinence PSYCHIATRIC: Absent: anxiety, depression, suicidal or homicidal ideation, hallucinations. PHYSICAL EXAMINATION Vital Signs - 24 hr 11/20/18 08:22 Temperature 98.6 F Pulse Rate 84 Respiratory 18 Rate Blood Pressure 124/76 O2 Sat by Pulse 100 Oximetry (%) GENERAL: Awake, alert, anxious, in no acute distress. EYES: PEERLA; EOMI; no scleral iterus NECK: no JVD; no lymphadenopathy. LUNGS: on nasal cannula; slight wheezes at the left bases HEART: Regular rate and rhythm, normal S1 and S2 without murmur, rub or gallop. ABDOMEN: soft; NT/ND +BS in all 4 quadrants MUSCULOSKELETAL: Normal range of motion at all joints. No bony deformities or tenderness. No CVA tenderness. UPPER EXTREMITIES: right disatl forerarm erythematous, tenderness upon palpation , no drainage or collection appreciated LOWER EXTREMITIES:warm; b/l lymphedema with compression stockings on PSYCHIATRIC: Cooperative. Good eye contact. Appropriate mood and affect. SKIN: Warm, dry, normal turgor, no rashes or lesions noted, normal capillary refill. Laboratory Results - last 24 hr 11/20/18 11/20/18 11/20/18 10:00 10:00 10:00 WBC 11.2 H RBC 6.04 H Hgb 13.2 Hct 41.1 MCV 68.0 L MCH 21.8 L MCHC 32.1 RDW 15.8 Plt Count 172 MPV 9.0 D Absolute Neuts (auto) 9.9 H Neutrophils % 88.5 H D Lymphocytes % 4.2 L D Monocytes % 6.2 Eosinophils % 0.5 D Basophils % 0.6 Nucleated RBC % 0 Sodium 137 Potassium 4.4 Chloride 98 Carbon Dioxide 33 H Anion Gap 6 L BUN 18.3 H Creatinine 1.1 Est GFR (CKD-EPI)AfAm 84.12 Est GFR (CKD-EPI)NonAf 72.58 Random Glucose 112 H Calcium 9.0 Total Bilirubin 1.0 AST 25 ALT 25 Alkaline Phosphatase 86 Troponin I < 0.02 B-Natriuretic Peptide 675.1 H Total Protein 7.1 Albumin 3.6 Urine Color Urine Appearance Urine pH Ur Specific [place] Urine Protein Urine Glucose (UA) Urine Ketones Urine Blood Urine Nitrite Urine Bilirubin Urine Urobilinogen Ur Leukocyte Esterase Urine WBC (Auto) Urine RBC (Auto) Urine Casts (Auto) U Epithel Cells (Auto) Urine Bacteria (Auto) Urine Yeast (Auto) 11/20/18 12:20 WBC RBC Hgb Hct MCV MCH MCHC RDW Plt Count MPV Absolute Neuts (auto) Neutrophils % Lymphocytes % Monocytes % Eosinophils % Basophils % Nucleated RBC % Sodium Potassium Chloride Carbon Dioxide Anion Gap BUN Creatinine Est GFR (CKD-EPI)AfAm Est GFR (CKD-EPI)NonAf Random Glucose Calcium Total Bilirubin AST ALT Alkaline Phosphatase Troponin I B-Natriuretic Peptide Total Protein Albumin Urine Color Yellow Urine Appearance Clear Urine pH 6.5 Ur Specific [place] 1.020 Urine Protein 2+ H Urine Glucose (UA) Negative Urine Ketones Negative Urine Blood 2+ H Urine Nitrite Negative Urine Bilirubin Negative Urine Urobilinogen 1.0 Ur Leukocyte Esterase Negative Urine WBC (Auto) 2 Urine RBC (Auto) 20.4 Urine Casts (Auto) 0 U Epithel Cells (Auto) 0.5 Urine Bacteria (Auto) 0.7 Urine Yeast (Auto) None seen ASSESSMENT/PLAN: 62 y/o male with PMH of COPD (on 2L home o2), CHF, HTN, GAY, B/L lymphedema presents to the ED with complaints of forearm redness and pain. #Cellulitis patient was given 1.5 gram of vanco in the ED -will c/w clindamycin q8H -dr mc consulted -monitor hemodynamics #COPD CXR was clear and did not show any evidence of any infitrates or effusions -albuterol PRN -duonebs PRN -2L o2 (as pert pateints home regimen) -c/w singulair -maintain o2 sat between 88-92% #CHF patient does not appear volume overloaded or in acute exacerbation -c/w home dose of lasix #HTN c/w imdur F/E/N not on fluids monitor electrolytes sodium-controlled diet DVT PPX: lovenox Problem List - Problem (1) Cellulitis Code(s): L03.90 - CELLULITIS, UNSPECIFIED (2) COPD (chronic obstructive pulmonary disease) Code(s): J44.9 - CHRONIC OBSTRUCTIVE PULMONARY DISEASE, UNSPECIFIED (3) Lymph edema Code(s): I89.0 - LYMPHEDEMA, NOT ELSEWHERE CLASSIFIED Visit type - Emergency Visit Emergency Visit: Yes ED Registration Date: 11/20/18 Care time: The patient presented to the Emergency Department on the above date and was hospitalized for further evaluation of their emergent condition. - New Patient This patient is new to me today: Yes Date on this admission: 11/20/18 - Critical Care Critical Care patient: No ATTENDING PHYSICIAN STATEMENT I saw and evaluated the patient. I reviewed the resident's note and discussed the case with the resident. I agree with the resident's findings and plan as documented. SUBJECTIVE: OBJECTIVE: ASSESSMENT AND PLAN:
[2018-11-20 13:57] LABS: ANISOCYTOSIS 2+; MACROCYTOSIS 0; PLATELET ESTIMATE NORMAL; TARGET CELLS 2+
[2018-11-20] MEDS ORDERED: ALBUTEROL SO4 2.5/IPRATROPIUM 0.5 INH SOL 3 ML VIAL.NEB. NEB PRN (13:57)
--- NOTE | 2018-11-20 14:07 | CON.ID ---
Consult - Past Medical History Cardio/Vascular: Yes: CHF, HTN Pulmonary: Yes: COPD - Alcohol/Substance Use Hx Alcohol Use: No - Smoking History Smoking history: Former smoker Have you smoked in the past 12 months: No If you are a former smoker, when did you quit?: 10 yres ago Home Medications - Allergies Allergies/Adverse Reactions: Allergies Allergy/AdvReac Type Severity Reaction Status Date / Time No Known Allergies Allergy Verified 11/20/18 08:50 - Home Medications Home Medications: Ambulatory Orders Furosemide [Lasix -] 20 mg PO DAILY 03/09/17 Prednisone 20 mg PO ASDIR 03/09/17 Albuterol Sulfate [Proair Hfa] 2 puff IH Q4H PRN 07/20/18 Isosorbide Mononitrate [Isosorbide Mononitrate ER] 30 mg PO HS 07/20/18 Montelukast Na [Singulair -] 10 mg PO DAILY 07/20/18 Doxycycline Hyclate 100 mg PO BID 11/20/18 Physical Exam Vital Signs: Vital Signs Temperature 98.6 F 11/20/18 08:22 Pulse Rate 84 11/20/18 08:22 Respiratory Rate 18 11/20/18 08:22 Blood Pressure 124/76 11/20/18 08:22 O2 Sat by Pulse Oximetry (%) 100 11/20/18 08:22 Labs: CBC, BMP 11/20/18 10:00 11/20/18 10:00
[2018-11-20] MEDS ORDERED: CLINDAMYCIN 600MG PREMIX IVPB 600 MG/50 ML BAG IVPB ONE (14:34)
--- NOTE | 2018-11-20 16:23 | PN ---
Teaching Attending Note Name of Resident: Clair Unger ATTENDING PHYSICIAN STATEMENT I saw and evaluated the patient. I reviewed the resident's note and discussed the case with the resident. I agree with the resident's findings and plan as documented. SUBJECTIVE: Complains of R arm pain/redness/tenderness. No fever/chills. Also complains of difficulty breathing - chronic. OBJECTIVE: Afebrile, Hemodynamically Stable. Appears comfortable. No dyspnea. Last Vital Signs Temp Pulse Resp BP Pulse Ox 98.6 F 81 20 114/75 95 11/20/18 16:15 11/20/18 16:15 11/20/18 16:15 11/20/18 16:15 11/20/18 16:15 HEENT - Atraumatic, Normocephalic. On 2L O2 via NC. Heart - S1, S2, RRR Lungs - Clear to auscultation Abdomen - High BMI, soft, non-tender. Bowel Sounds normal. Extremities - Edema++. Chronic venous stasis skin changes, TEDs on. Laboratory Results - last 24 hr 11/20/18 11/20/18 11/20/18 10:00 10:00 10:00 WBC 11.2 H RBC 6.04 H Hgb 13.2 Hct 41.1 MCV 68.0 L MCH 21.8 L MCHC 32.1 RDW 15.8 Plt Count 172 MPV 9.0 D Absolute Neuts (auto) 9.9 H Neutrophils % 88.5 H D Lymphocytes % 4.2 L D Monocytes % 6.2 Eosinophils % 0.5 D Basophils % 0.6 Nucleated RBC % 0 Hypochromia 0 Platelet Estimate Normal Polychromasia 0 Poikilocytosis 0 Anisocytosis 2+ Microcytosis 2+ Macrocytosis 0 Target Cells 2+ Sodium 137 Potassium 4.4 Chloride 98 Carbon Dioxide 33 H Anion Gap 6 L BUN 18.3 H Creatinine 1.1 Est GFR (CKD-EPI)AfAm 84.12 Est GFR (CKD-EPI)NonAf 72.58 Random Glucose 112 H Calcium 9.0 Total Bilirubin 1.0 AST 25 ALT 25 Alkaline Phosphatase 86 Troponin I < 0.02 B-Natriuretic Peptide 675.1 H Total Protein 7.1 Albumin 3.6 Urine Color Urine Appearance Urine pH Ur Specific [place] Urine Protein Urine Glucose (UA) Urine Ketones Urine Blood Urine Nitrite Urine Bilirubin Urine Urobilinogen Ur Leukocyte Esterase Urine WBC (Auto) Urine RBC (Auto) Urine Casts (Auto) U Epithel Cells (Auto) Urine Bacteria (Auto) Urine Yeast (Auto) 11/20/18 12:20 WBC RBC Hgb Hct MCV MCH MCHC RDW Plt Count MPV Absolute Neuts (auto) Neutrophils % Lymphocytes % Monocytes % Eosinophils % Basophils % Nucleated RBC % Hypochromia Platelet Estimate Polychromasia Poikilocytosis Anisocytosis Microcytosis Macrocytosis Target Cells Sodium Potassium Chloride Carbon Dioxide Anion Gap BUN Creatinine Est GFR (CKD-EPI)AfAm Est GFR (CKD-EPI)NonAf Random Glucose Calcium Total Bilirubin AST ALT Alkaline Phosphatase Troponin I B-Natriuretic Peptide Total Protein Albumin Urine Color Yellow Urine Appearance Clear Urine pH 6.5 Ur Specific [place] 1.020 Urine Protein 2+ H Urine Glucose (UA) Negative Urine Ketones Negative Urine Blood 2+ H Urine Nitrite Negative Urine Bilirubin Negative Urine Urobilinogen 1.0 Ur Leukocyte Esterase Negative Urine WBC (Auto) 2 Urine RBC (Auto) 20.4 Urine Casts (Auto) 0 U Epithel Cells (Auto) 0.5 Urine Bacteria (Auto) 0.7 Urine Yeast (Auto) None seen Current Medications Generic Name Dose Route Start Last Admin Trade Name Freq PRN Reason Stop Dose Admin Albuterol Sulfate 2 puff 11/20/18 13:36 Ventolin Hfa Inhaler - IH Q4H PRN SHORT OF BREATH/WHEEZING Albuterol/Ipratropium 1 amp 11/20/18 13:57 Duoneb - NEB Q6H PRN SHORTNESS OF BREATH Enoxaparin Sodium 40 mg 11/21/18 10:00 Lovenox - SQ DAILY JALYN Furosemide 20 mg 11/21/18 10:00 Lasix - PO DAILY [facility] Piperacillin Sod/Tazobactam 50 mls @ 100 mls/hr 11/20/18 14:30 Sod 3.375 gm/ Dextrose IVPB Q8H-IV [facility] Protocol Isosorbide Mononitrate 30 mg 11/20/18 22:00 Imdur - PO HS JALYN Montelukast Sodium 10 mg 11/21/18 22:00 Singulair - PO HS [facility] Prednisone 20 mg 11/20/18 13:45 Deltasone - PO ASDIR [facility] Home Medications Medication Instructions Recorded Furosemide [Lasix -] 20 mg PO DAILY 03/09/17 Prednisone 20 mg PO ASDIR 03/09/17 Albuterol Sulfate [Proair Hfa] 2 puff IH Q4H PRN 07/20/18 Isosorbide Mononitrate [Isosorbide 30 mg PO HS 07/20/18 Mononitrate ER] Montelukast Na [Singulair -] 10 mg PO DAILY 07/20/18 Doxycycline Hyclate 100 mg PO BID 11/20/18 ASSESSMENT AND PLAN: 62 year old male with history of CRF sec to COPD (on 2L O2 via NC), Chronic Diastolic CHF, HTN, GAY, Bilateral LE lymphedema, presets with R forearm erythema/pain/tenderness after possibly sustaining an insect bite 3 days ago. 1. Acute RUE Cellulitis Afebrile, Hemodynamically Stable. Received Vanco in ED - Will switch to IV Clindamycin (apparent PCN allergy as per patient) ID consulted. 2. Chronic Respiratory Failure secondary to COPD - Stable, no evidence of acute exacerbation CXR - no infiltrate. Steroid dependent - on Prednisone 20mg - continue. Bronchodlators PRN Continue Singulair. 3. HTN - continue Imdur. 4. Chronic Diastolic CHF - no evidence of decompensation. Continue Lasix. 5. Microscopic Hematuria - asymptomatic. For out-patient follow up/Urology referral. DVT Px - Lovenox SQ.
[2018-11-20 18:06] VITALS: BMI 42.0
[2018-11-20] MEDS: PIPERACILLIN/TAZOB 3.375 GM 3.375 GM in DEXTROSE 5%-WATER - 50 ML IVPB SCH ×2 (18:20→18:21)
[2018-11-20] MEDS ORDERED: ACETAMINOPHEN 325 MG TABLET (FP) PO PRN (19:20)
[2018-11-20] MEDS: ALBUTEROL SO4 2.5/IPRATROPIUM 0.5 INH SOL 3 ML VIAL.NEB. NEB SCH (21:35)
[2018-11-20] MEDS: ISOSORBIDE MONONITRATE 30 MG TAB.SR.24H (FP) PO SCH (21:57)
[2018-11-20] MEDS: BACITRACIN 15 GM TUBE TOPICAL OINTMENT TP SCH (21:57)
[2018-11-20] MEDS: predniSONE 10 MG TABLET (UD) PO SCH (22:43)
[2018-11-20] MEDS: MONTELUKAST NA 10 MG TABLET PO SCH (22:43)
[2018-11-20] MEDS: ALBUTEROL SO4 8 GM HFA INHALER IH PRN (23:19)
[2018-11-21] MEDS ORDERED: PIPERACILLIN/TAZOBACTAM 3.375 GM VIAL IVPB ONE ×3 (01:42→17:21)
[2018-11-21] MEDS ORDERED: DEXTROSE 5%-WATER - 50 ML IVPB ONE ×3 (01:42→17:21)
[2018-11-21] MEDS: PIPERACILLIN/TAZOB 3.375 GM 3.375 GM in DEXTROSE 5%-WATER - 50 ML IVPB SCH ×3 (01:59→18:14)
[2018-11-21] MEDS: ALBUTEROL SO4 2.5/IPRATROPIUM 0.5 INH SOL 3 ML VIAL.NEB. NEB SCH ×2 (07:00→12:05)
[2018-11-21 08:24] LABS: ALBUMIN 3.4 g/dl (3.4-5.0); BLOOD UREA NITROGEN 15.5 mg/dL (7-18); CALCIUM 8.7 mg/dL (8.5-10.1); MAGNESIUM 1.9 mg/dL (1.8-2.4); POTASSIUM 4.5 mmol/L (3.5-5.1)
[2018-11-21 08:44] LABS: BASO % 0.5 % (0-2.0); EOS % 0.2 % (0-4.5); HEMATOCRIT 39.7 % (35.4-49); HEMOGLOBIN 12.9 GM/dL (11.7-16.9); LYMPH % 5.8 % (8-40); MCH 22.4 pg (25.7-33.7); MCHC 32.5 g/dl (32.0-35.9); MEAN PLT VOLUME 8.4 fl (7.5-11.1); MONO % 6.8 % (3.8-10.2); NEUT % 86.7 % (42.8-82.8); PLATELET COUNT 159 K/MM3 (134-434); RBC 5.76 M/mm3 (4.00-5.60); RDW 15.8 % (11.9-15.9); WHITE BLOOD COUNT 9.2 K/mm3 (4.0-10.0)
--- NOTE | 2018-11-21 10:13 | PN ---
Progress Note, Physician History of Present Illness: patient does not feel much better still with swelling of his hand rt and with tenderness - Current Medication List Current Medications: Active Medications Acetaminophen (Tylenol -) 650 mg PO Q6H PRN PRN Reason: PAIN Albuterol Sulfate (Ventolin Hfa Inhaler -) 2 puff IH Q4H PRN PRN Reason: SHORT OF BREATH/WHEEZING Last Admin: 11/20/18 23:19 Dose: 2 puff Albuterol/Ipratropium (Duoneb -) 1 amp NEB RQID [facility] Last Admin: 11/21/18 07:00 Dose: 1 amp Bacitracin (Bacitracin -) 1 applic TP DAILY [facility] Last Admin: 11/20/18 21:57 Dose: 1 applic Enoxaparin Sodium (Lovenox -) 40 mg SQ DAILY JALYN Furosemide (Lasix -) 20 mg PO DAILY JALYN Piperacillin Sod/Tazobactam (Sod 3.375 gm/ Dextrose) 50 mls @ 100 mls/hr IVPB Q8H-IV JALYN; Protocol Last Admin: 11/21/18 01:59 Dose: 100 mls/hr Isosorbide Mononitrate (Imdur -) 30 mg PO HS [facility] Last Admin: 11/20/18 21:57 Dose: 30 mg Montelukast Sodium (Singulair -) 10 mg PO HS [facility] Last Admin: 11/20/18 22:43 Dose: 10 mg Prednisone (Deltasone -) 20 mg PO DAILY [facility] Last Admin: 11/20/18 22:43 Dose: 20 mg - Objective Vital Signs: Vital Signs Temperature 98.3 F 11/21/18 06:00 Pulse Rate 84 11/21/18 06:00 Respiratory Rate 22 H 11/21/18 06:00 Blood Pressure 125/56 L 11/21/18 06:00 O2 Sat by Pulse Oximetry (%) 91 L 11/20/18 21:00 Constitutional: Yes: Calm, Mild Distress Cardiovascular: Yes: Regular Rate and Rhythm Respiratory: Yes: On Nasal O2, Poor Air Entry Gastrointestinal: Yes: Normal Bowel Sounds, Soft Musculoskeletal: Yes: WNL Extremities: Yes: Other (rt arm swollen and tender,wound at the elbow) Wound/Incision: Yes: Dressing Dry and Intact, Dressing Removed, Other (wound looked at) Neurological: Yes: Alert, Oriented Psychiatric: Yes: Alert, Oriented Labs: CBC, BMP 11/21/18 07:20 11/21/18 07:20 Assessment/Plan Problem List - Problem (1) Cellulitis Code(s): L03.90 - CELLULITIS, UNSPECIFIED (2) COPD (chronic obstructive pulmonary disease) Code(s): J44.9 - CHRONIC OBSTRUCTIVE PULMONARY DISEASE, UNSPECIFIED htn constipation plan get a ct scan of the hand continue abx patient mentions that he knows he has blockage of rectum suggest to get a gi on board
[2018-11-21] MEDS ORDERED: PT OWN MED DRAWER 7, Y5N ONE (10:27)
[2018-11-21] MEDS: ENOXAPARIN NA (PORCINE) 40 MG/0.4 ML DISP.SYRIN SQ SCH (11:16)
[2018-11-21] MEDS: predniSONE 10 MG TABLET (UD) PO SCH (11:17)
[2018-11-21] MEDS: FUROSEMIDE 20 MG TABLET (FP) PO SCH (11:17)
[2018-11-21] MEDS: BACITRACIN 15 GM TUBE TOPICAL OINTMENT TP SCH (11:17)
--- NOTE | 2018-11-21 14:49 | PN ---
Teaching Attending Note Name of Resident: Claus Damon ATTENDING PHYSICIAN STATEMENT I saw and evaluated the patient. I reviewed the resident's note and discussed the case with the resident. I agree with the resident's findings and plan as documented. SUBJECTIVE: Ongoing R arm pain/redness/tenderness. No fever/chills. Also complains of episodic SOB - chronic. OBJECTIVE: Afebrile, Hemodynamically Stable. Appears comfortable on 2L O2. No dyspnea. Last Vital Signs Temp Pulse Resp BP Pulse Ox 98.3 F 89 21 H 135/85 91 L 11/21/18 11:31 11/21/18 11:31 11/21/18 11:31 11/21/18 11:31 11/21/18 09:00 HEENT - Atraumatic, Normocephalic. On 2L O2 via NC. Heart - S1, S2, RRR Lungs - Clear to auscultation Abdomen - High BMI, soft, non-tender. Bowel Sounds normal. Extremities - Edema++. Chronic venous stasis skin changes, TEDs on. Laboratory Results - last 24 hr 11/21/18 11/21/18 07:20 07:20 WBC 9.2 RBC 5.76 H Hgb 12.9 Hct 39.7 MCV 69.0 L MCH 22.4 L MCHC 32.5 RDW 15.8 Plt Count 159 MPV 8.4 Absolute Neuts (auto) 8.0 Neutrophils % 86.7 H Lymphocytes % 5.8 L D Monocytes % 6.8 Eosinophils % 0.2 Basophils % 0.5 Nucleated RBC % 0 Sodium 139 Potassium 4.5 Chloride 101 Carbon Dioxide 32 Anion Gap 6 L BUN 15.5 Creatinine 1.0 Est GFR (CKD-EPI)AfAm 94.39 Est GFR (CKD-EPI)NonAf 81.44 Random Glucose 121 H Calcium 8.7 Magnesium 1.9 Total Bilirubin 1.0 AST 21 ALT 23 Alkaline Phosphatase 77 Total Protein 7.0 Albumin 3.4 Current Medications Generic Name Dose Route Start Last Admin Trade Name Freq PRN Reason Stop Dose Admin Acetaminophen 650 mg 11/20/18 19:20 Tylenol - PO Q6H PRN PAIN Albuterol Sulfate 2 puff 11/20/18 13:36 11/20/18 23:19 Ventolin Hfa Inhaler - IH 2 puff Q4H PRN Administration SHORT OF BREATH/WHEEZING Albuterol/Ipratropium 1 amp 11/20/18 20:00 11/21/18 12:05 Duoneb - NEB 1 amp RQID JALYN Administration Bacitracin 1 applic 11/20/18 19:30 11/21/18 11:17 Bacitracin - TP 1 applic DAILY JALYN Administration Enoxaparin Sodium 40 mg 11/21/18 10:00 11/21/18 11:16 Lovenox - SQ 40 mg DAILY JALYN Administration Furosemide 20 mg 11/21/18 10:00 11/21/18 11:17 Lasix - PO 20 mg DAILY JALYN Administration Piperacillin Sod/Tazobactam 50 mls @ 100 mls/hr 11/20/18 14:30 11/21/18 11:16 Sod 3.375 gm/ Dextrose IVPB 100 mls/hr Q8H-IV JALYN Administration Protocol Isosorbide Mononitrate 30 mg 11/20/18 22:00 11/20/18 21:57 Imdur - PO 30 mg HS JALYN Administration Montelukast Sodium 10 mg 11/20/18 22:18 11/20/18 22:43 Singulair - PO 10 mg HS JALYN Administration Prednisone 20 mg 11/20/18 22:30 11/21/18 11:17 Deltasone - PO 20 mg DAILY JALYN Administration Home Medications Medication Instructions Recorded Furosemide [Lasix -] 20 mg PO DAILY 03/09/17 Prednisone 20 mg PO ASDIR 03/09/17 Albuterol Sulfate [Proair Hfa] 2 puff IH Q4H PRN 07/20/18 Isosorbide Mononitrate [Isosorbide 30 mg PO HS 07/20/18 Mononitrate ER] Montelukast Na [Singulair -] 10 mg PO DAILY 07/20/18 Doxycycline Hyclate 100 mg PO BID 11/20/18 ASSESSMENT AND PLAN: 62 year old male with history of Chronic Respiratory Failure sec to COPD (on 2L O2 via NC), Chronic Diastolic CHF, HTN, GAY, Bilateral LE lymphedema, presents with R forearm erythema/pain/tenderness after possibly sustaining an insect bite 3 days ago. 1. Acute RUE Cellulitis Afebrile, Hemodynamically Stable. Received Vanco in ED - switched to IV Zosyn by ID CT RUE requested as per ID - patient declines as he nable to lay flat in CT Scan. No clinical evidence of abscess. 2. Chronic Respiratory Failure secondary to COPD - Stable, no evidence of acute exacerbation CXR - no infiltrate. Steroid dependent - on Prednisone 20mg - continue. Bronchodlators PRN Continue Singulair. Patient sees Dr. Donohue - requesting Pulmonary eval as in-patient. Hx GAY - non-compliant with BiPAP due to ill-fitting face mask - respiratory to measure for appropriate sized face mask. 3. HTN - continue Imdur. 4. Chronic Diastolic CHF - no evidence of decompensation. Continue Lasix. Follows with Dr. Restrepo - requesting Cardio follow up as in-patient. 5. Microscopic Hematuria - asymptomatic. For out-patient follow up/Urology referral. 6. Hx of Rectal Stricture (reported by patient), has not followed with GI - he is requesting in-patient GI evaluation. 7. Microcytic Anemia, MCV 69 - etiology unclear, likely iron deficiency. Will send stool guiaic and iron studies. GI consulted. DVT Px - Lovenox SQ.
--- NOTE | 2018-11-21 14:52 | PN ---
Physical Exam: SUBJECTIVE: 62 y/o M w PMH COPD (on 2L home o2), chronic diastolic CHF, HTN, GAY , BL LE lymphedema presented to the ED w c/o forearm redness and pain and secondary c/o SOB. Today, pt recounts that on Monday, he may have been bitten by a spider on RIGHT forearm and has had increasing pain and redness at the site. Pt has received tylenol and feels some improvement. He denies fever, chills, and bleeding. Pt also reports that he has SOB and says this is a continuous/chronic concern of his. Pt has been inconsistent with medical f/u and says he takes his medications based on how well/poor he is feeling on a daily basis. Pt presently reports no CP and NVFD. OBJECTIVE: Vital Signs Temp Pulse Resp BP Pulse Ox 98.3 F 89 21 H 135/85 91 L 11/21/18 11:31 11/21/18 11:31 11/21/18 11:31 11/21/18 11:11/21/18 09:00 GENERAL: A/Ox3, anxious, in no acute distress. EYES: TAMMIE, EOMI, no scleral iterus NECK: Supple, no JVD, no lymphadenopathy. LUNGS: Pt removed NC, normally uses nasal canula. Lungs CTAB with wheezes at the left bases, no other adventitious sounds HEART: RRR, S1 and S2 without murmur, rub or gallop. ABDOMEN: Obese, soft; NT/ND +BS in all 4 quadrants MUSCULOSKELETAL: Normal range of motion at all joints. No bony deformities or tenderness. No CVA tenderness. UPPER EXTREMITIES: RIGHT forearm POS erythema, tenderness to palpation, no purulence LOWER EXTREMITIES: POS BL edema, skin changes consistent w venous stasis PSYCHIATRIC: Hostile, anxious, otherwise normal affect. SKIN: BL lower limb edema. Warm, dry, normal turgor, no rashes or lesions noted , normal capillary refill. Laboratory Results - last 24 hr 11/21/18 11/21/18 07:20 07:20 WBC 9.2 RBC 5.76 H Hgb 12.9 Hct 39.7 MCV 69.0 L MCH 22.4 L MCHC 32.5 RDW 15.8 Plt Count 159 MPV 8.4 Absolute Neuts (auto) 8.0 Neutrophils % 86.7 H Lymphocytes % 5.8 L D Monocytes % 6.8 Eosinophils % 0.2 Basophils % 0.5 Nucleated RBC % 0 Sodium 139 Potassium 4.5 Chloride 101 Carbon Dioxide 32 Anion Gap 6 L BUN 15.5 Creatinine 1.0 Est GFR (CKD-EPI)AfAm 94.39 Est GFR (CKD-EPI)NonAf 81.44 Random Glucose 121 H Calcium 8.7 Magnesium 1.9 Total Bilirubin 1.0 AST 21 ALT 23 Alkaline Phosphatase 77 Total Protein 7.0 Albumin 3.4 Active Medications Acetaminophen (Tylenol -) 650 mg PO Q6H PRN PRN Reason: PAIN Albuterol Sulfate (Ventolin Hfa Inhaler -) 2 puff IH Q4H PRN PRN Reason: SHORT OF BREATH/WHEEZING Last Admin: 11/20/18 23:19 Dose: 2 puff Albuterol/Ipratropium (Duoneb -) 1 amp NEB RQID [facility] Last Admin: 11/21/18 12:05 Dose: 1 amp Bacitracin (Bacitracin -) 1 applic TP DAILY [facility] Last Admin: 11/21/18 11:17 Dose: 1 applic Enoxaparin Sodium (Lovenox -) 40 mg SQ DAILY [facility] Last Admin: 11/21/18 11:16 Dose: 40 mg Furosemide (Lasix -) 20 mg PO DAILY [facility] Last Admin: 11/21/18 11:17 Dose: 20 mg Piperacillin Sod/Tazobactam (Sod 3.375 gm/ Dextrose) 50 mls @ 100 mls/hr IVPB Q8H-IV JALYN; Protocol Last Admin: 11/21/18 11:16 Dose: 100 mls/hr Isosorbide Mononitrate (Imdur -) 30 mg PO HS [facility] Last Admin: 11/20/18 21:57 Dose: 30 mg Montelukast Sodium (Singulair -) 10 mg PO HS [facility] Last Admin: 11/20/18 22:43 Dose: 10 mg Prednisone (Deltasone -) 20 mg PO DAILY [facility] Last Admin: 11/21/18 11:17 Dose: 20 mg ASSESSMENT/PLAN: 62 y/o M PMH chronic respiratory failure 2/2 COPD (on 2L home O2 via NC), chronic diastolic CHF, HTN, GAY, BL LE lymphedema, presenting w RIGHT forearm erythema/pain/tenderness s/p poss. spider bite poss. consistent with cellulitis. # Cellulitis - Located on RUE - Presently afebrile and hemodynamically stable - Under the care of Dr. Davenport, ID - Received vancomycin in ED and switched to IV Zosyn by ID - CT not obtained; pt refuses/unable to lay flat - Monitor hemodynamics # Chronic respiratory failure 2/2 COPD - No evidence of acute exacerbation on phys. exam - NEG CXR - Cont. prednisone 20mg, singulair - BIPAP HS - Bronchodilators PRN - 2L o2 NC - Chest CT per pulm - Under the care of Dr. Donohue pulm # Chronic diastolic CHF - Not consistent w vol overload - No evidence of decompensation. - Cont. lasix. - Follows with Dr. Restrepo # GAY - Non-compliant with BiPAP at home but wore overnight - Respiratory to measure for appropriate sized face mask #HTN - Cont. current regimen (imdur) # Microscopic hematuria - Asymptomatic - Refer to urology out-pt # Microcytic anemia - MCV 69 - Most likely 2/2 Fe deficiency - Will send stool guiaic and iron studies - GI consulted. # F/E/N - No standing fluids - Cont. to monitor electrolytes - Sodium-controlled diet # DVT prophylaxis - Lovenox # Disposition - Full code [facility]on Visit type - Emergency Visit Emergency Visit: No - New Patient This patient is new to me today: Yes Date on this admission: 11/21/18 - Critical Care Critical Care patient: No - Discharge Referral Referred to [facility] Med P.C.: No ATTENDING PHYSICIAN STATEMENT I saw and evaluated the patient. I reviewed the resident's note and discussed the case with the resident. I agree with the resident's findings and plan as documented. SUBJECTIVE: OBJECTIVE: ASSESSMENT AND PLAN:
--- NOTE | 2018-11-21 14:56 | PN ---
Progress Note (short form) - Note Progress Note: PULMONARY CONSULTATION DICTATED 11/21/18 IMP ADVANCED COPD O2 DEPENDENT WITH CHRONIC HYPOXEMIC/HYPERCAPNEIC RESPIRATORY FAILURE PULMONARY HTN SEVERE OSAS NOT COMPLIANT WITH CPAP ASHD CELLULITIS MORBID OBESITY PLAN INHALED BRONCHODILATORS O2 BIPAP AT NIGHT ABX CHEST CT DR MCPHERSON Problem List - Problems (1) Sleep apnea Code(s): G47.30 - SLEEP APNEA, UNSPECIFIED (2) Cellulitis Code(s): L03.90 - CELLULITIS, UNSPECIFIED (3) COPD (chronic obstructive pulmonary disease) Code(s): J44.9 - CHRONIC OBSTRUCTIVE PULMONARY DISEASE, UNSPECIFIED (4) Idiopathic chronic venous hypertension of both lower extremities with ulcer and inflammation Code(s): I87.333 - CHRONIC VENOUS HTN W ULCER AND INFLAM OF BILATERAL LOW EXTRM ; L97.919 - NON-PRS CHRONIC ULC UNSP PRT OF R LOW LEG W UNSP SEVERITY; L97.929 - NON-PRS CHRONIC ULC UNSP PRT OF L LOW LEG W UNSP SEVERITY (5) Lymph edema Code(s): I89.0 - LYMPHEDEMA, NOT ELSEWHERE CLASSIFIED (6) Venous insufficiency of both lower extremities Code(s): I87.2 - VENOUS INSUFFICIENCY (CHRONIC) (PERIPHERAL) (7) CAD (coronary artery disease) Code(s): I25.10 - ATHSCL HEART DISEASE OF [place] CORONARY ARTERY W/O ANG PCTRS (8) Morbid obesity Code(s): E66.01 - MORBID (SEVERE) OBESITY DUE TO EXCESS CALORIES (9) Pulmonary HTN Code(s): I27.20 - PULMONARY HYPERTENSION, UNSPECIFIED (10) Cellulitis Code(s): L03.90 - CELLULITIS, UNSPECIFIED (11) Chronic respiratory failure with hypoxia and hypercapnia Code(s): J96.11 - CHRONIC RESPIRATORY FAILURE WITH HYPOXIA; J96.12 - CHRONIC RESPIRATORY FAILURE WITH HYPERCAPNIA
--- NOTE | 2018-11-21 16:48 | CONS ---
DATE OF CONSULTATION: 11/21/2018 PULMONARY CONSULTATION REFERRING PHYSICIAN: Gianni Vieira M.D. HISTORY OF PRESENT ILLNESS: The patient is a 62-year-old white male known to me from previous office followup with a past medical history of advanced COPD and chronic hypoxemic respiratory failure maintained on home O2 of 2 L, congestive heart failure, ASHD, hypertension severe, obstructive sleep apnea, noncompliant with CPAP, bilateral lymphedema, pulmonary hypertension, admitted to [facility] with complaint of right forearm redness and pain. The patient was unsure whether or not he got bit by a spider a couple days prior to admission. He started noticing a lot of pain, increased redness of the right forearm. He initially did not try to seek any medications for the pain. His symptoms continued to worsen, at which time he presented to the emergency room. He also complained of increasing shortness of breath, chest tightness, and a burning sensation for a couple of weeks prior to admission. He states he has been having cough productive of yellow sputum, denies hemoptysis. He states he is using his albuterol inhaler without any improvement. He is unable to tolerate inhaled steroids, states that it gave him pneumonia in the past. He has a history of tobacco use approximately 5 packs per day for many years, quit 10 years ago. 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 He states he sleeps on a recliner, unable to lie flat. He also has increasing chronic lower extremity edema. There is no history of DVT or PE in the past. There is no history of recent travel. PAST MEDICAL HISTORY: Advanced chronic obstructive pulmonary disease with chronic hypoxemic respiratory failure O2 dependent, moderate pulmonary hypertension, congestive heart failure, ASHD, severe obstructive sleep apnea noncompliant with CPAP, bilateral lymphedema, lower extremity lymphedema, hypertension. 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 History of tobacco use 5 packs a day since age 17, quit 10 years ago. Occasional ETOH. REVIEW OF SYSTEMS: Positive orthopnea. Positive dyspnea. Positive cough. Positive yellow sputum. Positive chest tightness. Positive fever as well as chills. Positive right upper extremity swelling and discomfort. CURRENT MEDICATIONS: Include prednisone 20 mg daily, Tylenol, piperacillin, bacitracin, Lovenox, albuterol, DuoNeb, Singulair, Lasix, and Imdur. PHYSICAL EXAMINATION: GENERAL: The patient is an obese male, awake, alert, in no acute distress. He is afebrile. VITAL SIGNS: Blood pressure 135/80, respiratory rate 21, O2 saturation 91% on 2 L nasal cannula. HEENT: Normocephalic, atraumatic. NECK: Supple. HEART: Regular S1, S2. CHEST: Diminished breath sounds bilaterally. ABDOMEN: Soft, bowel sounds positive. EXTREMITIES: Lower extremity edema right hand tenderness. Chest x-ray, no acute infiltrates or effusions. Cardiomegaly. WBC 9.2, hemoglobin 12.9, hematocrit 39.7, platelet count 159,000. BUN 15, creatinine 1.0. IMPRESSION: 1. Advanced chronic obstructive pulmonary disease, oxygen dependent, chronic hypoxemic respiratory failure. 2. Moderate severe pulmonary hypertension. 3. Severe obstructive sleep apnea, noncompliant with CPAP. 4. Arteriosclerotic heart disease. 5. Hypertension. 6. Right upper extremity cellulitis. 7. Morbid obesity. PLAN: Inhaled bronchodilators, supplemental O2, antibiotics as per infectious disease, BiPAP at night, CT scan of the chest. ALF MCPHERSON M.D. [id number]
[2018-11-21] MEDS: ARFORMOTEROL TARTRATE 15 MCG/2 ML VIAL NEB SCH (21:10)
--- NOTE | 2018-11-21 21:26 | PN ---
Progress Note (short form) - Note Progress Note: GI CONSULT DICTATED -- AXR ORDERED -- CLEAR LIQUID DIET TOMORROW PLAN FOR TENTATIVE COLONOSCOPY ON MONDAY THIS IS PROVIDED HE IS CLEARED BY PULMONARY AND HIS CELLULITIS DOES NOT WORSEN. SEE FULL CONSULT
--- NOTE | 2018-11-21 21:51 | CONS ---
GASTROINTESTINAL CONSULTATION DATE OF CONSULTATION: DATE OF DICTATION: 11/21/2018 The patient is a 62-year-old man with a past medical history of COPD on 2 L of home oxygen, CHF, hypertension, GAY, bilateral lymphedema, who presented to the hospital with complaints of forearm redness and pain. Also, complains of shortness of breath which has been worsening over the past couple of days. At which time, he has been using his rescue inhaler more frequently. He was admitted with a diagnosis of cellulitis and COPD as well as lymphedema. He states that he has been having abdominal bloating and difficulty with bowel movements. States that his stool caliber has decreased. Complains of ribbon-like stools over the past 6 months. He states his last colonoscopy was 20 years ago. He believes he may have a stricture in his colon. However, this is secondary to his symptoms. He has never actually had an exam which revealed any stricture, and again, his last colonoscopy was 20 years ago. He has never had an upper endoscopy in the past. PAST MEDICAL AND SURGICAL HISTORY: As listed in the HPI. SOCIAL HISTORY: He quit smoking 10 years ago. Socially drinks wine and does not use any drugs, but did in the past. FAMILY HISTORY: Significant for heart disease. ALLERGIES: No known drug allergies. HOME MEDICATIONS: Include Lasix, prednisone, albuterol, isosorbide, Montelukast, and doxycycline. REVIEW OF SYSTEMS: As per the HPI. PHYSICAL EXAMINATION: Vital Signs: Temperature 98, pulse 90, blood pressure 121/76, pulse oximetry 91% on 2 L, respiratory rate 16. General: In no acute distress. HEENT: Anicteric sclera. Cardiovascular: S1, S2. Regular rate and rhythm. Lungs: Bilaterally clear to auscultation. Abdomen: Obese, nontender, with a periumbilical reducible hernia. Extremities: Positive edema. LABORATORY DATA: White blood cell count on admission 11.2, currently 9.2; hemoglobin 12.9/39; MCV 69; platelet count 159. Sodium 139, potassium 4.5, BUN 15, creatinine 1. AST 21, ALT 23, alkaline phosphatase 77. Cultures are pending. He had a chest x-ray. No evidence of pneumonia or pleural effusion. He has not had any abdominal image. IMPRESSION: Change in bowel habit, abdominal bloating, and borderline anemia. Gastrointestinal blood loss will need to be excluded as well as a mass lesion. RECOMMENDATION: Abdominal x-ray will be ordered. He should have Pulmonary see him for clearance for diagnostic colonoscopy. Will tentatively plan for colonoscopy on Monday. Therefore, he should be on clear-liquid diet and prepped with Dulcolax and GoLYTELY on evening pending clearance by Pulmonary and Cardiology. He is currently on antibiotics for cellulitis. If he were to develop worsening leukocytosis, his procedure will need to be postponed to the following week or done as an outpatient. For now, I will put him on clear-liquid diet tomorrow for tentative colonoscopy on Monday. DO CONOR MCRAE/[id number]
[2018-11-21] MEDS ORDERED: MONTELUKAST NA 10 MG TABLET PO SCH (22:00)
[2018-11-21] MEDS: ISOSORBIDE MONONITRATE 30 MG TAB.SR.24H (FP) PO SCH (22:53)
--- NOTE | 2018-11-21 22:53 | CONS ---
CARDIOLOGY CONSULTATION DATE OF CONSULTATION: DATE OF DICTATION: 11/21/2018 REQUESTING PHYSICIAN: Gianni Vieira MD CHIEF COMPLAINT: 1. Chest pains. 2. Increasing shortness of breath. 3. Cough and expectoration. The patient is a 62-year-old gentleman with known case of coronary artery disease; angina pectoris; history of MANDARIN SPEAKING NANNY of the right coronary artery; hypercholesterolemia; advanced COPD, oxygen dependent; severe obstructive sleep apnea syndrome; history of aortic valvular disease; mitral regurgitation; chronic lower extremity venous disease. Patient was admitted with swelling and pain involving the right upper extremity which he attributes to an insect bite. The swelling and pain became progressively worse. He was found to have cellulitis which is currently being treated. Patient states that he recently had an episode of upper anterior chest pain and required 4 sublingual nitroglycerins for relief. There has been no recurrence. He has chronic dyspnea on minimal exertion, sleeps in a recliner. There is no history of palpitations, lightheadedness, dizziness, presyncope, but he has experienced post-tussive syncope in the past. Patient also has had probable osteomyelitis involving the right big toe which occurred due to an injury and had been on intravenous antibiotics via a PICC line for 6 weeks. PAST HISTORY: 1. As mentioned in the history of present illness. 2. Chronic bilateral lower extremity edema with intermittent cellulitis. SURGICAL HISTORY: Recently had I&D involving the right big toe and has been under the care of the wound care center. Status post surgery for left pneumothorax. 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 He is . He smoked since the age of 17 to 52 years and apparently smoked more than 1-1/2 packets of cigarettes per day. Has had a history of alcoholism, but currently has an occasional drink. He drinks 2-3 cups of coffee per day. There is no history of drug use. FAMILY HISTORY: Father at the age of 85. He was diabetic and had coronary artery disease. Mother postoperatively after undergoing a heart valve replacement. She was 70 years of age. He has 1 brother who is diabetic and asthmatic; has a sister who is also diabetic. ALLERGIES: States that he developed severe dizziness while being on STATIN. States that he has had dizziness with certain ANTIHYPERTENSIVE THERAPY, but does not recall the names. CURRENT MEDICATIONS: 1. Prednisone 20 mg p.o. daily. 2. Tylenol 650 mg q.6 hours p.r.n. 3. Pipercillin and tazobactam 3.375 mg IV q.8 hours. 4. Bacitracin 1 application daily. 5. Lovenox 40 mg subcutaneously daily. 6. Spiriva 2 inhalations daily. 7. Ventolin inhaler 2 inhalations q.4 hours p.r.n. 8. Albuterol/Ventolin 0.083% via nebulizer q.4 hours p.r.n. 9. Brovana 1 ampule via nebulizer b.i.d. 10. Singulair 10 mg p.o. daily nightly. 11. Furosemide 20 mg p.o. daily. 12. Isosorbide mononitrate 30 mg p.o. daily. REVIEW OF SYSTEMS: Constitutional: No history of chills, fever, or night sweats. No history of unintentional weight loss. HEENT: Denies having history of headaches, diplopia, blurred vision. Denies having hoarseness or epistaxis. No history of tinnitus or deafness. Respiratory: Patient recently developed a progressive cough accompanied by yellowish-greenish expectoration and is under treatment for bronchitis. There is no history of hemoptysis. Denies having tuberculosis. See history of present illness. Cardiovascular: See history of present illness. Gastrointestinal: History of chronic constipation which apparently became more pronounced when on Ranexa. No history of nausea, vomiting, melena, or hematemesis. States that he has developed an abdominal hernia. Genitourinary: Denies having dysuria, frequency, urgency, hematuria, or nocturia. Musculoskeletal: Complains of occasional arthritic pain involving the left ankle. Endocrine: No history of intolerance to cold or warm weather. No history of polyuria or polydipsia. No history of increased thirst. No known history of endocrine disorder. Neurological: History of post-tussive syncope. States that he had an episode of transient motor function involving the left upper arm associated with paresthesias, lasting approximately 2 minutes while he was leaning on his left elbow. There is no history of dizziness, seizures. Hematological/Lymphatics: ? history of thalassemia minor. No history of bleeding, anemia. PHYSICAL EXAMINATION: General: A 62-year-old, morbidly obese male was in no acute distress. There was no cyanosis noted. No pallor, clubbing, or jaundice. Vital Signs: Blood pressure 121/76 mmHg. Pulse 90 beats per minute and regular. Temperature 98.5 degrees Fahrenheit. Respirations were 20 per minute. Oxygen saturation was 91% on 2 L of oxygen. Neck: Supple, slightly positive hepatojugular reflux. No JVD. Carotids were 2 +. Upstrokes were normal. No bruits were heard. Heart: PMI was not localized. Slight left parasternal and substernal heave. Grade 3/6 decrescendo systolic murmur was heard along the left sternal border and apex , that radiated towards the left axilla. A grade 2/6 ejection systolic murmur was heard at the second right intercostal space and left sternal border. Murmur ended in [id number] systole. No diastolic murmur or gallops were heard. Lungs: Bilateral scattered crepitations and wheezing. There were decreased breath sounds at both bases. Chest: Slight increased AP diameter. Expansion grossly appeared symmetrical. Abdomen: Morbidly obese, soft, and nontender. No hepatosplenomegaly or palpable masses were felt. There was a small, reducible umbilical hernia, a possible small hypogastric hernia. Extremities: Compression stocking on the left lower extremity. Patient does not want it removed. The right foot has been bandaged. Left lower extremity has brawny edema. The right dorsalis pedis, posterior tibial pulses could not be palpated. No calf tenderness was elicited. Right upper extremity was swollen, tender to touch, hyperemic. LABORATORY DATA: CBC November 21, 2018: WBC 8200. Hemoglobin 12.9 g/dL. Hematocrit 39.7%. Platelet count 159,000. A differential revealed neutrophils of 86.7%. Lymphocytes were 5.8%. Monocytes were 6.8%. Eosinophils were 0.2%. Basophils were 0.5%. Chemistry: Sodium 139, potassium 4.5, chloride 101, CO2 of 32 mmol/L. BUN 15.5 mg/dL, creatinine 1.0 mg/dL. Random glucose was 121 mg/dL. Calcium 8.7 mg/dL. Normal liver function tests. BNP was elevated at 675.1 pg/mL. Troponin was less than 0.02 on November 20, 2018. X-ray chest dated November 20, 2018: Impression: 1. Cardiomegaly. 2. No evidence of pneumonia, congestive heart failure, pneumothorax, or large pleural effusion. ECG of November 20, 2018, reported as: 1. Normal sinus rhythm, possible left atrial enlargement. 2. Right superior axis deviation. 3. Incomplete right bundle branch block. Abnormal ECG. When compared to ECG of July 27, 2018, left posterior fascicular block is no longer present. IMPRESSION: 1. Coronary artery disease, history of MANDARIN SPEAKING NANNY (coronary total occlusion) of the right coronary artery, angina pectoris with recent recurrence. 2. Hypertension, hypertensive cardiovascular disease. 3. Cellulitis of the right upper extremity (swelling, hyperemia, and tenderness ). 4. Systolic murmur compatible with mitral regurgitation. 5. Aortic valvular disease, most likely aortic sclerosis; stenosis needs to be excluded. 6. Advanced oxygen-dependent chronic obstructive pulmonary disease. 7. Recent episode of acute bronchitis. 8. History of non-healing ulcer involving the right big toe. 9. Congestive heart failure; cor pulmonale needs to be excluded. 10. Obstructive sleep apnea syndrome. 11. Morbid obesity. 12. Bilateral lower extremity varicose veins and chronic stasis changes. 13. Pulmonary hypertension. RECOMMENDATIONS: 1. Would suggest increasing the dose of isosorbide initially to 60 mg p.o. daily and if necessary maximize to 120 mg p.o. daily. 2. In view of constipation, would advise refraining from the use of Ranexa. 3. Followup ECG. 4. Risk modification. 5. Treatment for obstructive sleep apnea syndrome. PROGNOSIS: Guarded. Thank you for your referral. Yours sincerely, RAVI PEREZ M.D. [id number] MTDD
[2018-11-21] MEDS: MONTELUKAST NA 10 MG TABLET PO SCH (22:54)
[2018-11-21] MEDS: ALBUTEROL SO4 0.083% IH SOL 2.5 MG/3 ML VIAL.NEB. NEB PRN (23:15)
[2018-11-22] MEDS ORDERED: PIPERACILLIN/TAZOBACTAM 3.375 GM VIAL IVPB ONE ×3 (02:18→17:26)
[2018-11-22] MEDS ORDERED: DEXTROSE 5%-WATER - 50 ML IVPB ONE ×3 (02:18→17:26)
[2018-11-22] MEDS: PIPERACILLIN/TAZOB 3.375 GM 3.375 GM in DEXTROSE 5%-WATER - 50 ML IVPB SCH ×3 (02:40→17:34)
[2018-11-22] MEDS: TIOTROPIUM BROMIDE 2.5 MCG (SPIRIVA) RESPIMAT INHALER IH SCH ×2 (07:49→11:00)
[2018-11-22 08:26] LABS: BASO % 0.8 % (0-2.0); EOS % 2.5 % (0-4.5); HEMATOCRIT 41.6 % (35.4-49); MCH 22.3 pg (25.7-33.7); MCHC 31.3 g/dl (32.0-35.9); MEAN CELL VOLUME 71.2 fl (80-96); MEAN PLT VOLUME 8.5 fl (7.5-11.1); MONO % 9.5 % (3.8-10.2); NEUT % 76.2 % (42.8-82.8); PLATELET COUNT 159 K/MM3 (134-434); RBC 5.84 M/mm3 (4.00-5.60)
[2018-11-22 08:30] LABS: ALBUMIN 3.3 g/dl (3.4-5.0); BILIRUBIN,TOTAL 0.9 mg/dL (0.2-1); BLOOD UREA NITROGEN 19.8 mg/dL (7-18); CREATININE 0.9 mg/dL (0.55-1.3); MAGNESIUM 2.3 mg/dL (1.8-2.4); PHOSPHOROUS 4.9 mg/dL (2.5-4.9); POTASSIUM 4.7 mmol/L (3.5-5.1); TOT PROT 7.2 g/dl (6.4-8.2)
[2018-11-22] MEDS: ARFORMOTEROL TARTRATE 15 MCG/2 ML VIAL NEB SCH ×2 (08:50→20:22)
[2018-11-22] MEDS ORDERED: PT OWN MED DRAWER 7, Y5N ONE (10:03)
[2018-11-22] MEDS: BACITRACIN 15 GM TUBE TOPICAL OINTMENT TP SCH (10:24)
[2018-11-22] MEDS: FUROSEMIDE 20 MG TABLET (FP) PO SCH (10:24)
[2018-11-22] MEDS: ENOXAPARIN NA (PORCINE) 40 MG/0.4 ML DISP.SYRIN SQ SCH (10:25)
[2018-11-22] MEDS: predniSONE 10 MG TABLET (UD) PO SCH (10:25)
--- NOTE | 2018-11-22 11:48 | PN ---
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 Patient was admitted with swelling and pain involving the right upper extremity which he attributes to an insect bite. The swelling and pain became progressively worse. He was found to have cellulitis which is currently being treated. Patient also has had probable osteomyelitis involving the right big toe which occurred due to an injury and had been on intravenous antibiotics via a PICC line for 6 weeks. Patient recently had an episode of upper anterior chest pain and required 4 sublingual nitroglycerins for relief. There has been no recurrence. He has chronic dyspnea on minimal exertion, sleeps in a recliner. There is no history of palpitations, lightheadedness, dizziness, presyncope, but he has experienced post-tussive syncope in the past. Active Medications Acetaminophen (Tylenol -) 650 mg PO Q6H PRN PRN Reason: PAIN Last Admin: 11/22/18 09:23 Dose: 650 mg Albuterol Sulfate (Ventolin Hfa Inhaler -) 2 puff IH Q4H PRN PRN Reason: SHORT OF BREATH/WHEEZING Last Admin: 11/20/18 23:19 Dose: 2 puff Albuterol Sulfate (Ventolin 0.083% Nebulizer Soln -) 1 amp NEB Q4H PRN PRN Reason: SHORT OF BREATH/WHEEZING Last Admin: 11/21/18 23:15 Dose: 1 amp Arformoterol Tartrate (Brovana (Restricted To Pulmonology/Resp) -) 1 amp NEB RBID [facility] Last Admin: 11/22/18 08:50 Dose: 1 amp Bacitracin (Bacitracin -) 1 applic TP DAILY [facility] Last Admin: 11/22/18 10:24 Dose: 1 applic Enoxaparin Sodium (Lovenox -) 40 mg SQ DAILY [facility] Last Admin: 11/22/18 10:25 Dose: 40 mg Furosemide (Lasix -) 20 mg PO DAILY [facility] Last Admin: 11/22/18 10:24 Dose: Not Given Piperacillin Sod/Tazobactam (Sod 3.375 gm/ Dextrose) 50 mls @ 100 mls/hr IVPB Q8H-IV JALYN; Protocol Last Admin: 11/22/18 10:25 Dose: 100 mls/hr Isosorbide Mononitrate (Imdur -) 60 mg PO HS JALYN Montelukast Sodium (Singulair -) 10 mg PO HS [facility] Last Admin: 11/21/18 22:54 Dose: 10 mg Prednisone (Deltasone -) 20 mg PO DAILY [facility] Last Admin: 11/22/18 10:25 Dose: 20 mg Tiotropium [place] (Spiriva Respimat) 2 puff IH DAILY [facility] Last Admin: 11/22/18 07:49 Dose: Not Given REVIEW OF SYSTEMS: Constitutional: No history of chills, fever, or night sweats. No history of unintentional weight loss. HEENT: Denies having history of headaches, diplopia, blurred vision. Denies having hoarseness or epistaxis. No history of tinnitus or deafness. Respiratory: Patient recently developed a progressive cough accompanied by yellowish-greenish expectoration and is under treatment for bronchitis. There is no history of hemoptysis. Denies having tuberculosis. See history of present illness. Cardiovascular: See history of present illness. Gastrointestinal: History of chronic constipation which apparently became more pronounced when on Ranexa. No history of nausea, vomiting, melena, or hematemesis. States that he has developed an abdominal hernia. Genitourinary: Denies having dysuria, frequency, urgency, hematuria, or nocturia. Musculoskeletal: Complains of occasional arthritic pain involving the left ankle. Endocrine: No history of intolerance to cold or warm weather. No history of polyuria or polydipsia. No history of increased thirst. No known history of endocrine disorder. Neurological: History of post-tussive syncope. States that he had an episode of transient motor function involving the left upper arm associated with paresthesias, lasting approximately 2 minutes while he was leaning on his left elbow. There is no history of dizziness, seizures. Hematological/Lymphatics: ? history of thalassemia minor. No history of bleeding, anemia. PHYSICAL EXAMINATION: General: A 62-year-old, morbidly obese male was in no acute distress. No cyanosis, pallor, clubbing, or jaundice. Last Vital Signs Temp Pulse Resp BP Pulse Ox 97.8 F 72 18 120/86 92 L 11/22/18 10:31 08/15/19 10:31 11/22/18 10:31 11/22/18 10:31 11/21/18 21:05 Neck: Supple, slightly positive hepatojugular reflux. No JVD. Carotids were 2 +. Upstrokes were normal. No bruits were heard. Heart: PMI was not localized. Slight left parasternal and substernal heave. Grade III/ decrescendo systolic murmur was heard along the left sternal border and apex, that radiated towards the left axilla. A grade II/ ejection systolic murmur was heard at the second right intercostal space and left sternal border. Murmur ended in [id number] systole. No diastolic murmur or gallops were heard. Lungs: Bilateral scattered crepitations and wheezing. There were decreased breath sounds at both bases. Chest: Slight increased AP diameter. Expansion grossly appeared symmetrical. Abdomen: Morbidly obese, soft, and nontender. No hepatosplenomegaly or palpable masses were felt. There was a small, reducible umbilical hernia, a possible small hypogastric hernia. Extremities: Compression stocking on the left lower extremity. Patient does not want it removed. The right foot has been bandaged. Left lower extremity has brawny edema. The right dorsalis pedis, posterior tibial pulses could not be palpated. No calf tenderness was elicited. Right upper extremity was swollen, tender to touch, hyperemic. CBC, BMP 11/22/18 07:35 11/22/18 07:35 IMPRESSION: 1. Coronary artery disease, history of [employer] (coronary total occlusion) of the right coronary artery, angina pectoris with recent recurrence. 2. Cellulitis of the right upper extremity (swelling, hyperemia, and tenderness ). 3. Hypertension, hypertensive cardiovascular disease. 4. Systolic murmur compatible with mitral regurgitation. 5. Aortic valvular disease, most likely aortic sclerosis; stenosis needs to be excluded. 6. Advanced oxygen-dependent chronic obstructive pulmonary disease. 7. Recent episode of acute bronchitis. 8. History of non-healing ulcer involving the right big toe. 9. Congestive heart failure; cor pulmonale needs to be excluded. 10. Obstructive sleep apnea syndrome. 11. Morbid obesity. 12. Bilateral lower extremity varicose veins and chronic stasis changes. 13. Pulmonary hypertension. RECOMMENDATIONS: 1. Would suggest increasing the dose of isosorbide initially to 60 mg p.o. daily and if necessary maximize to 120 mg p.o. daily. 2. Daily weights. 3. Risk modification. 4. Patient should be on CPAP PROGNOSIS: Guarded. RAVI PEREZ M.D.
--- NOTE | 2018-11-22 11:54 | PN ---
Teaching Attending Note Name of Resident: Claus Damon ATTENDING PHYSICIAN STATEMENT I saw and evaluated the patient. I reviewed the resident's note and discussed the case with the resident. I agree with the resident's findings and plan as documented. SUBJECTIVE: Ongoing R arm pain/redness/tenderness. No fever/chills. Mltiple complaints - refuses BiPAP, refuses Pul Rehab. complains of limited effort tolerance due to dyspnea. OBJECTIVE: Afebrile, Hemodynamically Stable. Appears comfortable on 2L O2. No dyspnea/distress Last Vital Signs Temp Pulse Resp BP Pulse Ox 97.8 F 72 18 120/86 92 L 11/22/18 10:31 11/22/18 10:31 11/22/18 10:31 11/22/18 10:31 11/21/18 21:05 HEENT - Atraumatic, Normocephalic. On 2L O2 via NC. Heart - S1, S2, RRR Lungs - Clear to auscultation Abdomen - High BMI, soft, non-tender. Bowel Sounds normal. Umbilical hernia, non -tender, reducible. Extremities - Edema++. Chronic venous stasis skin changes, TEDs on. RUE - erythematous/swollen/abrasion on medial aspect,no clear abscess. Laboratory Results - last 24 hr 11/21/18 11/22/18 11/22/18 07:20 07:35 07:35 WBC 8.0 RBC 5.84 H Hgb 13.0 Hct 41.6 MCV 71.2 L MCH 22.3 L MCHC 31.3 L RDW 16.0 H Plt Count 159 MPV 8.5 Absolute Neuts (auto) 6.1 Neutrophils % 76.2 Lymphocytes % 11.0 D Monocytes % 9.5 Eosinophils % 2.5 D Basophils % 0.8 Nucleated RBC % 0 Sodium 139 140 Potassium 4.5 4.7 Chloride 101 102 Carbon Dioxide 32 30 Anion Gap 6 L 8 BUN 15.5 19.8 H Creatinine 1.0 0.9 Est GFR (CKD-EPI)AfAm 94.39 107.22 Est GFR (CKD-EPI)NonAf 81.44 92.51 Random Glucose 121 H 90 Calcium 8.7 9.0 Phosphorus 4.9 Magnesium 1.9 2.3 Iron 31 L 55 TIBC 247 L Iron Saturation 12 L Unsaturated IBC 216 Total Bilirubin 1.0 0.9 AST 21 29 ALT 23 27 Alkaline Phosphatase 77 87 Total Protein 7.0 7.2 Albumin 3.4 3.3 L Current Medications Generic Name Dose Route Start Last Admin Trade Name Freq PRN Reason Stop Dose Admin Acetaminophen 650 mg 11/20/18 19:20 11/22/18 09:23 Tylenol - PO 650 mg Q6H PRN Administration PAIN Albuterol Sulfate 2 puff 11/20/18 13:36 11/20/18 23:19 Ventolin Hfa Inhaler - IH 2 puff Q4H PRN Administration SHORT OF BREATH/WHEEZING Albuterol Sulfate 1 amp 11/21/18 15:38 11/21/18 23:15 Ventolin 0.083% Nebulizer Soln - NEB 1 amp Q4H PRN Administration SHORT OF BREATH/WHEEZING Arformoterol Tartrate 1 amp 11/21/18 20:00 11/22/18 08:50 Brovana (Restricted To Pulmonology/Resp) - NEB 1 amp RBID JALYN Administration Bacitracin 1 applic 11/20/18 19:30 11/22/18 10:24 Bacitracin - TP 1 applic DAILY JALYN Administration Enoxaparin Sodium 40 mg 11/21/18 10:00 11/22/18 10:25 Lovenox - SQ 40 mg DAILY JALYN Administration Furosemide 20 mg 11/21/18 10:00 11/22/18 10:24 Lasix - PO Not Given DAILY JALYN Piperacillin Sod/Tazobactam 50 mls @ 100 mls/hr 11/20/18 14:30 11/22/18 10:25 Sod 3.375 gm/ Dextrose IVPB 100 mls/hr Q8H-IV JALYN Administration Protocol Isosorbide Mononitrate 60 mg 11/22/18 08:23 Imdur - PO HS JALYN Montelukast Sodium 10 mg 11/20/18 22:18 11/21/18 22:54 Singulair - PO 10 mg HS AJLYN Administration Prednisone 20 mg 11/20/18 22:30 11/22/18 10:25 Deltasone - PO 20 mg DAILY JALYN Administration Tiotropium [place] 2 puff 11/21/18 15:45 11/22/18 07:49 Spiriva Respimat IH Not Given DAILY [facility] Home Medications Medication Instructions Recorded Furosemide [Lasix -] 20 mg PO DAILY 03/09/17 Prednisone 20 mg PO ASDIR 03/09/17 Albuterol Sulfate [Proair Hfa] 2 puff IH Q4H PRN 07/20/18 Isosorbide Mononitrate [Isosorbide 30 mg PO HS 07/20/18 Mononitrate ER] Montelukast Na [Singulair -] 10 mg PO DAILY 07/20/18 Doxycycline Hyclate 100 mg PO BID 11/20/18 ASSESSMENT AND PLAN: 62 year old male with history of Chronic Respiratory Failure sec to COPD (on 2L O2 via NC), Chronic Diastolic CHF, HTN, GAY, Bilateral LE lymphedema, presents with R forearm erythema/pain/tenderness after possibly sustaining an insect bite 3 days ago. 1. Acute RUE Cellulitis Afebrile, Hemodynamically Stable. Slow clinical improvement in redness/swelling Received Vanco in ED - switched to IV Zosyn by ID - further abx titration by ID CT RUE requested as per ID - patient declines as he is unable to lay flat in CT Scan. No clinical evidence of abscess. 2. Chronic Respiratory Failure secondary to COPD - Stable, no evidence of acute exacerbation CXR - no infiltrate. Steroid dependent - on Prednisone 20mg - continue. Bronchodlators PRN Continue Singulair. Pulm following - recommended CT Chest but patient declines as unable to lie flat for CT Scan. Hx GAY - non-compliant with BiPAP - refused again last night. 3. HTN - continue Imdur (dose increased to 60mg as per Cardio). 4. Chronic Diastolic CHF - no evidence of decompensation. Continue Lasix. Cardiology following. 5. Microscopic Hematuria - asymptomatic. For out-patient follow up/Urology referral. 6. Hx of Rectal Stricture (reported by patient), evaluated by GI - for Colonoscopy tomorrow. clear liquid diet, Dulcolax/Golytely prep. 7. Microcytic Anemia, MCV 69 - Iron deficiency, Iron Sat 12, likely sec to chronic blood loss anemia. GI consulted for further work-up. Will start FeSo4 supplementation post-colonoscopy. DVT Px - Lovenox SQ.
--- NOTE | 2018-11-22 13:12 | PN ---
Progress Note, Physician History of Present Illness: PULMONARY ALERT,LESS DYSPNEIC,C/O R AEM DISCOMFORT. PT REFUSED BIPAP LAST NIGHT - Current Medication List Current Medications: Active Medications Acetaminophen (Tylenol -) 650 mg PO Q6H PRN PRN Reason: PAIN Last Admin: 11/22/18 09:23 Dose: 650 mg Albuterol Sulfate (Ventolin Hfa Inhaler -) 2 puff IH Q4H PRN PRN Reason: SHORT OF BREATH/WHEEZING Last Admin: 11/20/18 23:19 Dose: 2 puff Albuterol Sulfate (Ventolin 0.083% Nebulizer Soln -) 1 amp NEB Q4H PRN PRN Reason: SHORT OF BREATH/WHEEZING Last Admin: 11/21/18 23:15 Dose: 1 amp Arformoterol Tartrate (Brovana (Restricted To Pulmonology/Resp) -) 1 amp NEB RBID JALYN Last Admin: 11/22/18 08:50 Dose: 1 amp Bacitracin (Bacitracin -) 1 applic TP DAILY [facility] Last Admin: 11/22/18 10:24 Dose: 1 applic Enoxaparin Sodium (Lovenox -) 40 mg SQ DAILY JALYN Last Admin: 11/22/18 10:25 Dose: 40 mg Furosemide (Lasix -) 20 mg PO DAILY [facility] Last Admin: 11/22/18 10:24 Dose: Not Given Piperacillin Sod/Tazobactam (Sod 3.375 gm/ Dextrose) 50 mls @ 100 mls/hr IVPB Q8H-IV JALYN; Protocol Last Admin: 11/22/18 10:25 Dose: 100 mls/hr Isosorbide Mononitrate (Imdur -) 60 mg PO HS JALYN Montelukast Sodium (Singulair -) 10 mg PO HS [facility] Last Admin: 11/21/18 22:54 Dose: 10 mg Prednisone (Deltasone -) 20 mg PO DAILY [facility] Last Admin: 11/22/18 10:25 Dose: 20 mg Tiotropium [place] (Spiriva Respimat) 2 puff IH DAILY [facility] Last Admin: 11/22/18 11:00 Dose: 2 puff - Objective Vital Signs: Vital Signs Temperature 97.8 F 11/22/18 10:31 Pulse Rate 72 11/22/18 10:31 Respiratory Rate 18 08/15/19 10:31 Blood Pressure 120/86 08/15/19 10:31 O2 Sat by Pulse Oximetry (%) 92 L 11/21/18 21:05 Constitutional: Yes: Calm, Obese Eyes: Yes: WNL HENT: Yes: WNL Neck: Yes: WNL Cardiovascular: Yes: Regular Rate and Rhythm, S1, S2 Respiratory: Yes: Diminished Gastrointestinal: Yes: Normal Bowel Sounds, Soft Extremities: Yes: Erythema (RUE SWOLLEN ,ERYTHEMA,TENDER) Edema: Yes Labs: CBC, BMP 11/22/18 07:35 11/22/18 07:35 Problem List - Problems (1) Sleep apnea Code(s): G47.30 - SLEEP APNEA, UNSPECIFIED (2) Cellulitis Code(s): L03.90 - CELLULITIS, UNSPECIFIED (3) COPD (chronic obstructive pulmonary disease) Code(s): J44.9 - CHRONIC OBSTRUCTIVE PULMONARY DISEASE, UNSPECIFIED (4) Idiopathic chronic venous hypertension of both lower extremities with ulcer and inflammation Code(s): I87.333 - CHRONIC VENOUS HTN W ULCER AND INFLAM OF BILATERAL LOW EXTRM ; L97.919 - NON-PRS CHRONIC ULC UNSP PRT OF R LOW LEG W UNSP SEVERITY; L97.929 - NON-PRS CHRONIC ULC UNSP PRT OF L LOW LEG W UNSP SEVERITY (5) Lymph edema Code(s): I89.0 - LYMPHEDEMA, NOT ELSEWHERE CLASSIFIED (6) Venous insufficiency of both lower extremities Code(s): I87.2 - VENOUS INSUFFICIENCY (CHRONIC) (PERIPHERAL) (7) CAD (coronary artery disease) Code(s): I25.10 - ATHSCL HEART DISEASE OF [place] CORONARY ARTERY W/O ANG PCTRS (8) Morbid obesity Code(s): E66.01 - MORBID (SEVERE) OBESITY DUE TO EXCESS CALORIES (9) Pulmonary HTN Code(s): I27.20 - PULMONARY HYPERTENSION, UNSPECIFIED (10) Cellulitis Code(s): L03.90 - CELLULITIS, UNSPECIFIED (11) Chronic respiratory failure with hypoxia and hypercapnia Code(s): J96.11 - CHRONIC RESPIRATORY FAILURE WITH HYPOXIA; J96.12 - CHRONIC RESPIRATORY FAILURE WITH HYPERCAPNIA Assessment/Plan IMP ADVANCED COPD O2 DEPENDENT WITH CHRONIC HYPOXEMIC/HYPERCAPNEIC RESPIRATORY FAILURE PULMONARY HTN SEVERE OSAS NOT COMPLIANT WITH CPAP ASHD CELLULITIS MORBID OBESITY PLAN INHALED BRONCHODILATORS O2 BIPAP AT NIGHT PT REFUSES ABX PER ID CHEST CT PT REFUSES DR MCPHERSON Problem List - Problems (1) Sleep apnea Code(s): G47.30 - SLEEP APNEA, UNSPECIFIED (2) Cellulitis Code(s): L03.90 - CELLULITIS, UNSPECIFIED (3) COPD (chronic obstructive pulmonary disease) Code(s): J44.9 - CHRONIC OBSTRUCTIVE PULMONARY DISEASE, UNSPECIFIED (4) Idiopathic chronic venous hypertension of both lower extremities with ulcer and inflammation Code(s): I87.333 - CHRONIC VENOUS HTN W ULCER AND INFLAM OF BILATERAL LOW EXTRM ; L97.919 - NON-PRS CHRONIC ULC UNSP PRT OF R LOW LEG W UNSP SEVERITY; L97.929 - NON-PRS CHRONIC ULC UNSP PRT OF L LOW LEG W UNSP SEVERITY (5) Lymph edema Code(s): I89.0 - LYMPHEDEMA, NOT ELSEWHERE CLASSIFIED (6) Venous insufficiency of both lower extremities Code(s): I87.2 - VENOUS INSUFFICIENCY (CHRONIC) (PERIPHERAL) (7) CAD (coronary artery disease) Code(s): I25.10 - ATHSCL HEART DISEASE OF [place] CORONARY ARTERY W/O ANG PCTRS (8) Morbid obesity Code(s): E66.01 - MORBID (SEVERE) OBESITY DUE TO EXCESS CALORIES (9) Pulmonary HTN Code(s): I27.20 - PULMONARY HYPERTENSION, UNSPECIFIED (10) Cellulitis Code(s): L03.90 - CELLULITIS, UNSPECIFIED (11) Chronic respiratory failure with hypoxia and hypercapnia Code(s): J96.11 - CHRONIC RESPIRATORY FAILURE WITH HYPOXIA; J96.12 - CHRONIC RESPIRATORY FAILURE WITH HYPERCAPNIA
--- NOTE | 2018-11-22 13:38 | PN ---
Physical Exam: SUBJECTIVE: 62 y/o M w PMH COPD (on 2L home o2), chronic diastolic CHF, HTN, GAY , BL LE lymphedema whom presented to the ED w c/o forearm redness and pain. He reports a secondary c/o SOB. The site of arm tenderness is the posterior aspect of the RIGHT forearm. Pt reports that he believes the cause or inciting trauma was not a spider bite but grazing his arm on a brick wall. Today, pt says his RIGHT arm is improving, however slowly, w less redness and less tenderness relative to yesterday. Pt has received tylenol and feels some improvement. He denies fever, chills, and bleeding. Pt states he always feels short of breath and attributes this to his chronic conditions. Pt refuses to wear BiPAP and refuses pulmonary rehab. Pt is Pt presently reports no CP and NVFD. No fever/ chills. OBJECTIVE: Vital Signs Temp Pulse Resp BP Pulse Ox 97.8 F 72 18 120/86 92 L 11/22/18 10:31 11/22/18 10:31 11/22/18 10:31 11/22/18 10:31 11/21/18 21:05 GENERAL: A/Ox3, anxious, in no acute distress. EYES: TAMMIE, EOMI, no scleral iterus NECK: Supple, no JVD, no lymphadenopathy. LUNGS: Pt on nasal canula. Lungs CTAB with wheezes at the left bases, no other adventitious sounds HEART: RRR, S1 and S2 without murmur, rub or gallop. ABDOMEN: Obese, soft; NT/ND +BS in all 4 quadrants MUSCULOSKELETAL: Normal range of motion at all joints. No bony deformities or tenderness. No CVA tenderness. UPPER EXTREMITIES: RIGHT forearm POS erythema, tenderness to palpation, no purulence LOWER EXTREMITIES: POS BL edema, skin changes consistent w venous stasis PSYCHIATRIC: POS histrionic, hostile, anxious, otherwise normal affect. SKIN: BL lower limb edema. Warm, dry, normal turgor, no rashes or lesions noted , normal capillary refill. Laboratory Results - last 24 hr 11/21/18 11/22/18 11/22/18 07:20 07:35 07:35 WBC 8.0 RBC 5.84 H Hgb 13.0 Hct 41.6 MCV 71.2 L MCH 22.3 L MCHC 31.3 L RDW 16.0 H Plt Count 159 MPV 8.5 Absolute Neuts (auto) 6.1 Neutrophils % 76.2 Lymphocytes % 11.0 D Monocytes % 9.5 Eosinophils % 2.5 D Basophils % 0.8 Nucleated RBC % 0 Sodium 139 140 Potassium 4.5 4.7 Chloride 101 102 Carbon Dioxide 32 30 Anion Gap 6 L 8 BUN 15.5 19.8 H Creatinine 1.0 0.9 Est GFR (CKD-EPI)AfAm 94.39 107.22 Est GFR (CKD-EPI)NonAf 81.44 92.51 Random Glucose 121 H 90 Calcium 8.7 9.0 Phosphorus 4.9 Magnesium 1.9 2.3 Iron 31 L 55 TIBC 247 L Iron Saturation 12 L Unsaturated IBC 216 Total Bilirubin 1.0 0.9 AST 21 29 ALT 23 27 Alkaline Phosphatase 77 87 Total Protein 7.0 7.2 Albumin 3.4 3.3 L Active Medications Acetaminophen (Tylenol -) 650 mg PO Q6H PRN PRN Reason: PAIN Last Admin: 11/22/18 09:23 Dose: 650 mg Albuterol Sulfate (Ventolin Hfa Inhaler -) 2 puff IH Q4H PRN PRN Reason: SHORT OF BREATH/WHEEZING Last Admin: 11/20/18 23:19 Dose: 2 puff Albuterol Sulfate (Ventolin 0.083% Nebulizer Soln -) 1 amp NEB Q4H PRN PRN Reason: SHORT OF BREATH/WHEEZING Last Admin: 11/21/18 23:15 Dose: 1 amp Arformoterol Tartrate (Brovana (Restricted To Pulmonology/Resp) -) 1 amp NEB RBID [facility] Last Admin: 11/22/18 08:50 Dose: 1 amp Bacitracin (Bacitracin -) 1 applic TP DAILY [facility] Last Admin: 11/22/18 10:24 Dose: 1 applic Enoxaparin Sodium (Lovenox -) 40 mg SQ DAILY [facility] Last Admin: 11/22/18 10:25 Dose: 40 mg Furosemide (Lasix -) 20 mg PO DAILY [facility] Last Admin: 11/22/18 10:24 Dose: Not Given Piperacillin Sod/Tazobactam (Sod 3.375 gm/ Dextrose) 50 mls @ 100 mls/hr IVPB Q8H-IV JALYN; Protocol Last Admin: 11/22/18 10:25 Dose: 100 mls/hr Isosorbide Mononitrate (Imdur -) 60 mg PO HS [facility] Montelukast Sodium (Singulair -) 10 mg PO HS [facility] Last Admin: 11/21/18 22:54 Dose: 10 mg Prednisone (Deltasone -) 20 mg PO DAILY [facility] Last Admin: 11/22/18 10:25 Dose: 20 mg Tiotropium [place] (Spiriva Respimat) 2 puff IH DAILY [facility] Last Admin: 11/22/18 11:00 Dose: 2 puff ASSESSMENT/PLAN: 62 y/o M PMH chronic respiratory failure 2/2 COPD (on 2L home O2 via [place]), chronic diastolic CHF, HTN, GAY, BL LE lymphedema, presenting w RIGHT forearm erythema/pain/tenderness s/p trauma consistent with cellulitis. # Cellulitis - CT RUE requested by ID but patient refuses as he is unwilling/unable to lay flat in CT Scan - Presently afebrile and hemodynamically stable - No clinical evidence of abscess. - ID on board (Dr. Davenport) - On zosyn - CT not obtained; pt refuses/unable to lay flat - Monitor hemodynamics # Hx of Rectal Stricture - Reported by patient - GI onboard - For Colonoscopy tomorrow - Clear liquid diet, dulcolax/Golytely prep. # Microcytic Anemia - Most likely iron deficiency - Iron Sat 12, likely sec to chronic blood loss anemia - MCV 69 - GI consulted for further work-up - FeSo4 supplementation after colonoscopy. # Chronic respiratory failure 2/2 COPD - No evidence of acute exacerbation on phys. exam - NEG CXR - Cont. prednisone 20mg, singulair - Bronchodilators PRN - 2L o2 NC - Pulm on board (Dr. Donohue) # Chronic diastolic CHF - Not consistent w vol overload - No evidence of decompensation. - Cont. lasix. - Follows with Dr. Restrepo - Cardiology on board # GAY - Non-compliant with BiPAP at home - Refusing fitment in hospital #HTN - Cont. current regimen (imdur) # Microscopic hematuria - Asymptomatic - Refer to urology out-pt # Microcytic anemia - MCV 69 - Most likely 2/2 Fe deficiency - Will send stool guiaic and iron studies - GI consulted. # F/E/N - No standing fluids - Cont. to monitor electrolytes - Sodium-controlled diet # DVT prophylaxis - Lovenox # Disposition - Full code Claus Damon MD Visit type - Emergency Visit Emergency Visit: No - New Patient This patient is new to me today: No - Critical Care Critical Care patient: No - Discharge Referral Referred to [facility] No ATTENDING PHYSICIAN STATEMENT I saw and evaluated the patient. I reviewed the resident's note and discussed the case with the resident. I agree with the resident's findings and plan as documented. SUBJECTIVE: OBJECTIVE: ASSESSMENT AND PLAN:
--- NOTE | 2018-11-22 16:07 | PN ---
Progress Note, Physician History of Present Illness: no new issues patient for colonoscopy planned awaiting for gi - Current Medication List Current Medications: Active Medications Acetaminophen (Tylenol -) 650 mg PO Q6H PRN PRN Reason: PAIN Last Admin: 11/22/18 09:23 Dose: 650 mg Albuterol Sulfate (Ventolin Hfa Inhaler -) 2 puff IH Q4H PRN PRN Reason: SHORT OF BREATH/WHEEZING Last Admin: 11/20/18 23:19 Dose: 2 puff Albuterol Sulfate (Ventolin 0.083% Nebulizer Soln -) 1 amp NEB Q4H PRN PRN Reason: SHORT OF BREATH/WHEEZING Last Admin: 11/21/18 23:15 Dose: 1 amp Arformoterol Tartrate (Brovana (Restricted To Pulmonology/Resp) -) 1 amp NEB RBID [facility] Last Admin: 11/22/18 08:50 Dose: 1 amp Bacitracin (Bacitracin -) 1 applic TP DAILY [facility] Last Admin: 11/22/18 10:24 Dose: 1 applic Enoxaparin Sodium (Lovenox -) 40 mg SQ DAILY [facility] Last Admin: 11/22/18 10:25 Dose: 40 mg Furosemide (Lasix -) 20 mg PO DAILY [facility] Last Admin: 11/22/18 10:24 Dose: Not Given Piperacillin Sod/Tazobactam (Sod 3.375 gm/ Dextrose) 50 mls @ 100 mls/hr IVPB Q8H-IV [facility]; Protocol Last Admin: 11/22/18 10:25 Dose: 100 mls/hr Isosorbide Mononitrate (Imdur -) 60 mg PO HS [facility] Montelukast Sodium (Singulair -) 10 mg PO HS [facility] Last Admin: 11/21/18 22:54 Dose: 10 mg Prednisone (Deltasone -) 20 mg PO DAILY [facility] Last Admin: 11/22/18 10:25 Dose: 20 mg Tiotropium [place] (Spiriva Respimat) 2 puff IH DAILY [facility] Last Admin: 11/22/18 11:00 Dose: 2 puff - Objective Vital Signs: Vital Signs Temperature 97.8 F 11/22/18 10:31 Pulse Rate 72 11/22/18 10:31 Respiratory Rate 18 11/22/18 10:31 Blood Pressure 120/86 11/22/18 10:31 O2 Sat by Pulse Oximetry (%) 92 L 11/21/18 21:05 Constitutional: Yes: Calm, Mild Distress, Obese Cardiovascular: Yes: S1, S2 Respiratory: Yes: Regular, CTA Bilaterally Gastrointestinal: Yes: Normal Bowel Sounds, Soft Musculoskeletal: Yes: Other Extremities: Yes: Erythema (still present), Other Neurological: Yes: Alert, Oriented Labs: CBC, BMP 11/22/18 07:35 11/22/18 07:35 Assessment/Plan Problem List - Problem (1) Cellulitis Code(s): L03.90 - CELLULITIS, UNSPECIFIED (2) COPD (chronic obstructive pulmonary disease) Code(s): J44.9 - CHRONIC OBSTRUCTIVE PULMONARY DISEASE, UNSPECIFIED htn constipation plan refusing ct scan because he cannot lie flat if the swelling and erythema does not improve will add vanco rest continue current mgmt resp support
[2018-11-22] MEDS ORDERED: PEG 3350/NA SULF BICARB CL/KCL 4000 ML SOLN.RECON PO ONE (16:38)
[2018-11-22] MEDS ORDERED: BISACODYL 5 MG TABLET.DR (FP) PO ONE (16:39)
--- NOTE | 2018-11-22 21:34 | PN ---
Progress Note (short form) - Note Progress Note: Patient sitting in bathroom. Prepped by primary team. would not come out for exam because he was bowel prepping. Was about [address]. He is concerned because he has not had a bowel movement as of yet. If no effect from bowel preparation, will likely need repeat bowel preparation for colonoscopy on Monday. Will ask pulmonary to comment on resp. status in AM prior to the procedure.
[2018-11-23] MEDS: ISOSORBIDE MONONITRATE 30 MG TAB.SR.24H (FP) PO SCH ×2 (00:42→21:44)
[2018-11-23] MEDS: MONTELUKAST NA 10 MG TABLET PO SCH ×2 (00:42→21:44)
[2018-11-23] MEDS ORDERED: PIPERACILLIN/TAZOBACTAM 3.375 GM VIAL IVPB ONE ×3 (01:57→16:41)
[2018-11-23] MEDS ORDERED: DEXTROSE 5%-WATER - 50 ML IVPB ONE ×3 (01:57→16:41)
[2018-11-23] MEDS: PIPERACILLIN/TAZOB 3.375 GM 3.375 GM in DEXTROSE 5%-WATER - 50 ML IVPB SCH ×3 (02:21→17:58)
[2018-11-23] MEDS: ARFORMOTEROL TARTRATE 15 MCG/2 ML VIAL NEB SCH ×2 (08:00→20:45)
[2018-11-23 08:29] LABS: BASO % 0.9 % (0-2.0); EOS % 2.3 % (0-4.5); HEMATOCRIT 40.8 % (35.4-49); HEMOGLOBIN 12.8 GM/dL (11.7-16.9); LYMPH % 12.5 % (8-40); MCH 21.8 pg (25.7-33.7); MCHC 31.3 g/dl (32.0-35.9); MEAN CELL VOLUME 69.7 fl (80-96); MEAN PLT VOLUME 8.2 fl (7.5-11.1); MONO % 8.9 % (3.8-10.2); NEUT % 75.4 % (42.8-82.8); PLATELET COUNT 188 K/MM3 (134-434); RBC 5.85 M/mm3 (4.00-5.60); RDW 15.9 % (11.9-15.9); WHITE BLOOD COUNT 7.6 K/mm3 (4.0-10.0)
[2018-11-23 09:01] LABS: ALBUMIN 3.3 g/dl (3.4-5.0); BILIRUBIN,TOTAL 0.8 mg/dL (0.2-1); BLOOD UREA NITROGEN 14.5 mg/dL (7-18); CALCIUM 8.8 mg/dL (8.5-10.1); CREATININE 0.9 mg/dL (0.55-1.3); MAGNESIUM 2.1 mg/dL (1.8-2.4); PHOSPHOROUS 3.8 mg/dL (2.5-4.9); POTASSIUM 4.1 mmol/L (3.5-5.1); TOT PROT 6.8 g/dl (6.4-8.2)
--- NOTE | 2018-11-23 10:07 | PN ---
Progress Note (short form) - Note Progress Note: The patient is a 62-year-old gentleman with known case of coronary artery disease; angina pectoris; history of ONLINE CONTENT COORDINATOR of the right coronary artery; hypercholesterolemia; advanced COPD, oxygen dependent; severe obstructive sleep apnea syndrome; history of aortic valvular disease; mitral regurgitation; chronic lower extremity venous disease. Patient was admitted with swelling and pain involving the right upper extremity which he attributes to an insect bite. The swelling and pain became progressively worse. He was found to have cellulitis which is currently being treated. Patient also has had probable osteomyelitis involving the right big toe which occurred due to an injury and had been on intravenous antibiotics via a PICC line for 6 weeks. Patient is currently being treated for cellulitis of the right forearm/elbow. He has chronic dyspnea which remains unchanged. Was being considered for a possible colonoscopy but, was deferred. He has had no recurrence of chest pain or discomfort. Active Medications Acetaminophen (Tylenol -) 650 mg PO Q6H PRN PRN Reason: PAIN Last Admin: 11/22/18 09:23 Dose: 650 mg Albuterol Sulfate (Ventolin Hfa Inhaler -) 2 puff IH Q4H PRN PRN Reason: SHORT OF BREATH/WHEEZING Last Admin: 11/20/18 23:19 Dose: 2 puff Albuterol Sulfate (Ventolin 0.083% Nebulizer Soln -) 1 amp NEB Q4H PRN PRN Reason: SHORT OF BREATH/WHEEZING Last Admin: 11/23/18 16:10 Dose: 1 amp Arformoterol Tartrate (Brovana (Restricted To Pulmonology/Resp) -) 1 amp NEB RBID [facility] Last Admin: 11/23/18 08:00 Dose: 1 amp Bacitracin (Bacitracin -) 1 applic TP DAILY [facility] Last Admin: 11/23/18 10:48 Dose: 1 applic Docusate Sodium (Colace -) 100 mg PO BID [facility] Enoxaparin Sodium (Lovenox -) 40 mg SQ DAILY [facility] Last Admin: 11/22/18 10:25 Dose: 40 mg Ferrous Sulfate (Feosol -) 325 mg PO BID [facility] Furosemide (Lasix -) 20 mg PO DAILY [facility] Last Admin: 11/23/18 10:48 Dose: Not Given Piperacillin Sod/Tazobactam (Sod 3.375 gm/ Dextrose) 50 mls @ 100 mls/hr IVPB Q8H-IV [facility]; Protocol Last Admin: 11/23/18 10:47 Dose: 100 mls/hr Vancomycin HCl 1,500 mg/ (Dextrose) 500 mls @ 250 mls/hr IVPB Q24H [facility]; Protocol Last Admin: 11/23/18 12:29 Dose: 250 mls/hr Isosorbide Mononitrate (Imdur -) 60 mg PO HS [facility] Last Admin: 11/23/18 00:42 Dose: 60 mg Montelukast Sodium (Singulair -) 10 mg PO HS [facility] Last Admin: 11/23/18 00:42 Dose: 10 mg Prednisone (Deltasone -) 20 mg PO DAILY [facility] Last Admin: 11/23/18 10:47 Dose: 20 mg Tiotropium [place] (Spiriva Respimat) 2 puff IH DAILY [facility] Last Admin: 11/23/18 10:48 Dose: 2 puff REVIEW OF SYSTEMS: Constitutional: No history of chills, fever, or night sweats. No history of unintentional weight loss. HEENT: Denies having history of headaches, diplopia, blurred vision. Denies having hoarseness or epistaxis. No history of tinnitus or deafness. Respiratory: Patient recently developed a progressive cough accompanied by yellowish-greenish expectoration and is under treatment for bronchitis. There is no history of hemoptysis. Denies having tuberculosis. See history of present illness. Cardiovascular: See history of present illness. Gastrointestinal: History of chronic constipation which apparently became more pronounced when on Ranexa. No history of nausea, vomiting, melena, or hematemesis. States that he has developed an abdominal hernia. Genitourinary: Denies having dysuria, frequency, urgency, hematuria, or nocturia. Musculoskeletal: Complains of occasional arthritic pain involving the left ankle. Endocrine: No history of intolerance to cold or warm weather. No history of polyuria or polydipsia. No history of increased thirst. No known history of endocrine disorder. Neurological: History of post-tussive syncope. States that he had an episode of transient motor function involving the left upper arm associated with paresthesias, lasting approximately 2 minutes while he was leaning on his left elbow. There is no history of dizziness, seizures. Hematological/Lymphatics: ? history of thalassemia minor. No history of bleeding, anemia. PHYSICAL EXAMINATION: General: A 62-year-old, morbidly obese male was in no acute distress. No cyanosis, pallor, clubbing, or jaundice. Last Vital Signs Temp Pulse Resp BP Pulse Ox 97.9 F 90 20 103/76 95 11/23/18 06:00 11/23/18 06:00 11/23/18 06:00 11/23/18 06:00 11/22/18 21:00 Neck: Supple, slightly positive hepatojugular reflux. No JVD. Carotids were 2 +. Upstrokes were normal. No bruits were heard. Heart: PMI was not localized. Slight left parasternal and substernal heave. Grade III/ decrescendo systolic murmur was heard along the left sternal border and apex, that radiated towards the left axilla. A grade II/ ejection systolic murmur was heard at the second right intercostal space and left sternal border. Murmur ended in [id number] systole. No diastolic murmur or gallops were heard. Lungs: Bilateral scattered crepitations and wheezing. There were decreased breath sounds at both bases. Chest: Slight increased AP diameter. Expansion grossly appeared symmetrical. Abdomen: Morbidly obese, soft, and nontender. No hepatosplenomegaly or palpable masses were felt. There was a small, reducible umbilical hernia, a possible small hypogastric hernia. Extremities: Compression stocking on the left lower extremity. Patient does not want it removed. The right foot has been bandaged. Left lower extremity has brawny edema. The right dorsalis pedis, posterior tibial pulses could not be palpated. No calf tenderness was elicited. Right upper extremity including the elbow is swollen, hyperemic and tender to touch. CBC, BMP 11/23/18 07:38 11/23/18 07:38 IMPRESSION: 1. Coronary artery disease, history of ONLINE CONTENT COORDINATOR (coronary total occlusion) of the right coronary artery, angina pectoris with recent recurrence. 2. Cellulitis of the right upper extremity (swelling, hyperemia, and tenderness ). 3. Hypertension, hypertensive cardiovascular disease. 4. Systolic murmur compatible with mitral regurgitation. 5. Aortic valvular disease, most likely aortic sclerosis; stenosis needs to be excluded. 6. Advanced oxygen-dependent chronic obstructive pulmonary disease. 7. Recent episode of acute bronchitis. 8. History of non-healing ulcer involving the right big toe. 9. Congestive heart failure; cor pulmonale needs to be excluded. 10. Obstructive sleep apnea syndrome. 11. Morbid obesity. 12. Bilateral lower extremity varicose veins and chronic stasis changes. 13. Pulmonary hypertension. RECOMMENDATIONS: 1. Nitrostat 0.4 mg sublingually PRN for chest discomfort, repeat within 5 minutes if necessary and if pain were to persist consider IV nitroglycerin. 2. Stat ECG during episode of chest discomfort and notify MD. 3. Patient should be on CPAP. PROGNOSIS: Guarded. RAVI PEREZ M.D.
--- NOTE | 2018-11-23 10:19 | PN.GI ---
GI Progress Note Subjective: Patient completed bowel prep last night. Had BM's No abdominal pain Patient complains of worsening right arm pain and feels as though the pain is extending further up his arm - Objective Vital Signs: Vital Signs Temperature 97.9 F 11/23/18 06:00 Pulse Rate 90 11/23/18 06:00 Respiratory Rate 20 11/23/18 06:00 Blood Pressure 103/76 11/23/18 06:00 O2 Sat by Pulse Oximetry (%) 95 11/22/18 21:00 Constitutional: Calm Eyes: No: Sclera Icterus Cardiovascular: Yes: Regular Rate and Rhythm, Murmur (2/6 systolic murmur at RSB >LSB) Respiratory: Yes: Diminished (at bases bilaterally) Gastrointestinal Inspection: Yes: Hernia (+ redicuble non-tender umbilical hernia). No: Distention ...Auscultate: Yes: Normoactive Bowel Sounds ...Palpate: Yes: Soft. No: Hepatomegaly, Splenomegaly, Tenderness ...Percussion: No: Tympanitic ...Rectal Exam: Yes: Other (No external lesions, no masses, no anal stricture palpated. scant light brown stool, guaiac negative.) Extremities: Yes: Erythema (and induration right arm (cellulitis being evaluated by ID)) Edema: Yes Edema: LLE: 1+, RLE: 1+ Neurological: Yes: Alert Labs: CBC, BMP 11/23/18 07:38 11/23/18 07:38 Problem List - Problems (1) Constipation Assessment/Plan: Marcus describes chronic altered bowel movements / stool caliber chronicaly and is not on bowel regimen at home. While elective colonoscopy can be considered, he will need pulmonary and cardiac clearance prior to invasive testing. There is also concern regarding worsening right arm cellulitis. I spoke with Dr. Davenport. There is concern re: possible abscess formation / osteomyelitis, however the patiewnt is refusing right upper extremity CT scan / MRI. I spoke with Dr. Donohue who explained that he will be assessing the patient. The patient will need to be evaluated by Dr. Calzada as well. Deferring colonoscopy for now given the above Patient noted weight loss. Upper GI series can be obtained. Bowel regimen with MiraLAX 17g BID I did give Mr. Bertrand my office card for further outpatient care. Code(s): K59.00 - CONSTIPATION, UNSPECIFIED
--- NOTE | 2018-11-23 10:21 | PN ---
Progress Note, Physician History of Present Illness: patient stable still with resp issues hand still with redness the hand looks red and now is also looking more swollen also hard and edema - Current Medication List Current Medications: Active Medications Acetaminophen (Tylenol -) 650 mg PO Q6H PRN PRN Reason: PAIN Last Admin: 11/22/18 09:23 Dose: 650 mg Albuterol Sulfate (Ventolin Hfa Inhaler -) 2 puff IH Q4H PRN PRN Reason: SHORT OF BREATH/WHEEZING Last Admin: 11/20/18 23:19 Dose: 2 puff Albuterol Sulfate (Ventolin 0.083% Nebulizer Soln -) 1 amp NEB Q4H PRN PRN Reason: SHORT OF BREATH/WHEEZING Last Admin: 11/21/18 23:15 Dose: 1 amp Arformoterol Tartrate (Brovana (Restricted To Pulmonology/Resp) -) 1 amp NEB RBID [facility] Last Admin: 11/23/18 08:00 Dose: 1 amp Bacitracin (Bacitracin -) 1 applic TP DAILY [facility] Last Admin: 11/22/18 10:24 Dose: 1 applic Enoxaparin Sodium (Lovenox -) 40 mg SQ DAILY [facility] Last Admin: 11/22/18 10:25 Dose: 40 mg Furosemide (Lasix -) 20 mg PO DAILY [facility] Last Admin: 11/22/18 10:24 Dose: Not Given Piperacillin Sod/Tazobactam (Sod 3.375 gm/ Dextrose) 50 mls @ 100 mls/hr IVPB Q8H-IV [facility]; Protocol Last Admin: 11/23/18 02:21 Dose: 100 mls/hr Vancomycin HCl 1,500 mg/ (Dextrose) 500 mls @ 250 mls/hr IVPB Q24H [facility]; Protocol Isosorbide Mononitrate (Imdur -) 60 mg PO HS [facility] Last Admin: 11/23/18 00:42 Dose: 60 mg Montelukast Sodium (Singulair -) 10 mg PO HS [facility] Last Admin: 11/23/18 00:42 Dose: 10 mg Prednisone (Deltasone -) 20 mg PO DAILY [facility] Last Admin: 11/22/18 10:25 Dose: 20 mg Tiotropium [place] (Spiriva Respimat) 2 puff IH DAILY [facility] Last Admin: 11/22/18 11:00 Dose: 2 puff - Objective Vital Signs: Vital Signs Temperature 97.9 F 11/23/18 06:00 Pulse Rate 90 11/23/18 06:00 Respiratory Rate 20 11/23/18 06:00 Blood Pressure 103/76 11/23/18 06:00 O2 Sat by Pulse Oximetry (%) 95 11/22/18 21:00 Constitutional: Yes: Well Nourished, Mild Distress, Obese Cardiovascular: Yes: Regular Rate and Rhythm Respiratory: Yes: Regular, CTA Bilaterally Gastrointestinal: Yes: Normal Bowel Sounds, Soft Musculoskeletal: Yes: Other Extremities: Yes: Erythema (on the elbow), Other (edema of the elbow) Wound/Incision: Yes: Dressing Dry and Intact Neurological: Yes: Alert, Oriented Labs: CBC, BMP 11/23/18 07:38 11/23/18 07:38 Assessment/Plan Problem List - Problem (1) Cellulitis Code(s): L03.90 - CELLULITIS, UNSPECIFIED (2) COPD (chronic obstructive pulmonary disease) Code(s): J44.9 - CHRONIC OBSTRUCTIVE PULMONARY DISEASE, UNSPECIFIED htn constipation plan i have ordered a stat xray of the hand to see if there is any collection will also add vanco all cx are negative once we have xray then will decide final plan
[2018-11-23] MEDS: predniSONE 10 MG TABLET (UD) PO SCH (10:47)
[2018-11-23] MEDS: TIOTROPIUM BROMIDE 2.5 MCG (SPIRIVA) RESPIMAT INHALER IH SCH (10:48)
[2018-11-23] MEDS: FUROSEMIDE 20 MG TABLET (FP) PO SCH (10:48)
[2018-11-23] MEDS: BACITRACIN 15 GM TUBE TOPICAL OINTMENT TP SCH (10:48)
[2018-11-23 11:38] LABS: ARTERIAL BLD GAS O2 SATURATION 91.8 % (95-98); ARTERIAL BLOOD GAS BASE EXCESS 6.2 meq/l (-2-2); ARTERIAL BLOOD GAS PCO2 46.1 mmHg (35-45); ARTERIAL BLOOD GAS PO2 67.7 mmHg (80-105); ARTERIAL BLOOD GAS pH 7.44 (7.35-7.45)
[2018-11-23 11:45] LABS: ALLENS TEST POSITIVE
[2018-11-23] MEDS ORDERED: PT OWN MED DRAWER 7, Y5N ONE (12:20)
[2018-11-23] MEDS: VANCOMYCIN HCL 1,500 MG in DEXTROSE 5%-WATER - 500 ML IVPB SCH (12:29)
--- NOTE | 2018-11-23 13:18 | PN ---
Physical Exam: SUBJECTIVE: 62 y/o M w PMH COPD (on 2L home o2), chronic diastolic CHF, HTN, GAY , BL LE lymphedema whom presented to the ED w c/o forearm redness and pain and a second concern of SOB, LINDSEY 4. Today, the pt says his RIGHT arm still hurts and feels that the redness and swelling is the same as yesterday and possibly getting worse. Pt reports area of redness extending. For comfort, he prefers placing the RIGHT hand in a downward, dependant position, otherwise he has no relief of symptoms despite abx and Tylenol. Pt's SOB is ongoing/consistent and he is being seen by pulm, whom recommends inhaled bronchodilators and HS bi-pap for GAY. Pt continues to deny BiPAP as he reports he does not feel a benefit. During this visit, the pt reported that his bowel movements have been irregular , w poss h/o strictures in his bowel, and he was therefore seen by GI. Plan for this issue included a clear liquid diet and tentative colonoscopy once pt is cleared by pulm and if RUE presentation does not worsen. Overnight the pt prepared for colonoscopy but only completed the GoLytely prep. He refused Dulcolax because he does not want another medication that gives him the sensation to pass stool. Pulm states pt is high risk for intra and post-op complications, RUE presentation has worsened, and so the pt will not go for colonoscopy today. Pt will receive further care as out-pt. He denies fever, chills, and bleeding. Pt reports that he slept well for the first time in years. Pt presently reports no CP, no fever, no chills, and no NVFD. OBJECTIVE: Vital Signs Temp Pulse Resp BP Pulse Ox 98.5 F 96 H 22 H 120/50 L 95 11/23/18 10:21 11/23/18 10:21 11/23/18 10:21 11/23/18 10:21 11/22/18 21:00 GENERAL: The patient is awake, alert, and fully oriented x3. Pt sitting at side of bed throughout exam as he is uncomfortable. Pt on nasal canula. HEAD: Normal with no signs of trauma. EYES: TAMMIE, EOMI, sclera anicteric, conjunctiva clear. No ptosis. ENT: Ears normal, nares patent, moist mucous membranes. NECK: Trachea midline, full range of motion, supple. LUNGS: Lungs CTAB with wheezes at the left bases, no other adventitious sounds. HEART: Regular rate and rhythm, S1, S2 without murmur, rub or gallop. ABDOMEN: Obese, soft, nontender, nondistended, normoactive bowel sounds, no guarding, no rebound, no hepatosplenomegaly, no masses. EXTREMITIES: RIGHT posterior aspect with [id number] abrasion covered by bandage, surrounded by diffuse, non-demarcated errythema and edema, also warm + tender to palpation. Edema present in RIGHT hand. 2+ pulses, warm, well-perfused, BL LE edema. NEUROLOGICAL: Cranial nerves III through XII grossly intact. Normal speech, gait not observed. PSYCH: Calm in AM SKIN: Many tattoos. Warm, dry, normal turgor, no rashes or lesions noted Laboratory Results - last 24 hr 11/23/18 11/23/18 11/23/18 07:38 07:38 11:02 WBC 7.6 RBC 5.85 H Hgb 12.8 Hct 40.8 MCV 69.7 L MCH 21.8 L MCHC 31.3 L RDW 15.9 Plt Count 188 MPV 8.2 Absolute Neuts (auto) 5.7 Neutrophils % 75.4 Lymphocytes % 12.5 Monocytes % 8.9 Eosinophils % 2.3 Basophils % 0.9 Nucleated RBC % 0 Anticoagulation Therapy No Result Required. Puncture Site Left radial ABG pH 7.44 ABG pCO2 at Pt Temp 46.1 H ABG pO2 at Pt Temp 67.7 L ABG HCO3 30.8 H ABG O2 Sat (Measured) 91.8 L ABG O2 Content 16.5 ABG Base Excess 6.2 H Mauri Test Positive O2 Delivery Device No Result Required. Oxygen Flow Rate Yes Vent Mode No Result Required. Vent Rate No Result Required. Mechanical Rate No Result Required. Pressure Support Vent No Result Required. Sodium 140 Potassium 4.1 Chloride 99 Carbon Dioxide 36 H Anion Gap 6 L BUN 14.5 Creatinine 0.9 Est GFR (CKD-EPI)AfAm 107.22 Est GFR (CKD-EPI)NonAf 92.51 Random Glucose 76 Calcium 8.8 Phosphorus 3.8 Magnesium 2.1 Total Bilirubin 0.8 AST 31 ALT 27 Alkaline Phosphatase 76 Total Protein 6.8 Albumin 3.3 L Active Medications Acetaminophen (Tylenol -) 650 mg PO Q6H PRN PRN Reason: PAIN Last Admin: 11/22/18 09:23 Dose: 650 mg Albuterol Sulfate (Ventolin Hfa Inhaler -) 2 puff IH Q4H PRN PRN Reason: SHORT OF BREATH/WHEEZING Last Admin: 11/20/18 23:19 Dose: 2 puff Albuterol Sulfate (Ventolin 0.083% Nebulizer Soln -) 1 amp NEB Q4H PRN PRN Reason: SHORT OF BREATH/WHEEZING Last Admin: 11/21/18 23:15 Dose: 1 amp Arformoterol Tartrate (Brovana (Restricted To Pulmonology/Resp) -) 1 amp NEB RBID [facility] Last Admin: 11/23/18 08:00 Dose: 1 amp Bacitracin (Bacitracin -) 1 applic TP DAILY [facility] Last Admin: 11/23/18 10:48 Dose: 1 applic Enoxaparin Sodium (Lovenox -) 40 mg SQ DAILY [facility] Last Admin: 11/22/18 10:25 Dose: 40 mg Furosemide (Lasix -) 20 mg PO DAILY [facility] Last Admin: 11/23/18 10:48 Dose: Not Given Piperacillin Sod/Tazobactam (Sod 3.375 gm/ Dextrose) 50 mls @ 100 mls/hr IVPB Q8H-IV [facility]; Protocol Last Admin: 11/23/18 10:47 Dose: 100 mls/hr Vancomycin HCl 1,500 mg/ (Dextrose) 500 mls @ 250 mls/hr IVPB Q24H [facility]; Protocol Last Admin: 11/23/18 12:29 Dose: 250 mls/hr Isosorbide Mononitrate (Imdur -) 60 mg PO HS [facility] Last Admin: 11/23/18 00:42 Dose: 60 mg Montelukast Sodium (Singulair -) 10 mg PO HS [facility] Last Admin: 11/23/18 00:42 Dose: 10 mg Prednisone (Deltasone -) 20 mg PO DAILY [facility] Last Admin: 11/23/18 10:47 Dose: 20 mg Tiotropium [place] (Spiriva Respimat) 2 puff IH DAILY [facility] Last Admin: 11/23/18 10:48 Dose: 2 puff ASSESSMENT/PLAN: 62 y/o M PMH chronic respiratory failure 2/2 COPD (on 2L home O2 via [place]), chronic diastolic CHF, HTN, GAY, BL LE lymphedema, presenting w RIGHT forearm erythema/pain/tenderness s/p trauma consistent with cellulitis. # Cellulitis - Same clinical presentaiton but otherwise pt afebrile and hemodynamically stable - No clinical evidence of abscess - ID on board (Dr. Davenport) - Vanco added to Zosyn by ID - CT not obtained; will acquire xray of RIGHT arm - Monitor hemodynamics # H/o rectal stricture - Reported by patient - Bowel regimen with MiraLAX 17g BID - Colonoscopy to be performed out-pt # Chronic respiratory failure 2/2 COPD - No evidence of acute exacerbation on phys. exam - NEG CXR - Cont. prednisone 20mg, singulair - Bronchodilators PRN - 2L o2 [place] - Pulm on board (Dr. Donohue) # Chronic diastolic CHF - Not consistent w vol overload - No evidence of decompensation. - Cont. lasix. - Cont. Imdur (dose increased to 60mg as per cardio) - Cardiology on board (Dr. Restrepo) # GAY - Non-compliant with BiPAP at home - Refusing fitment in hospital #HTN - Cont. current regimen (imdur) # Microscopic hematuria - Asymptomatic - Refer to urology out-pt # Microcytic anemia - MCV 69 - Most likely 2/2 Fe deficiency - Pt refusing stool guiaic - Additional f/u out-pt # Chronic Venous Stasis/LE varicosities - Compression stocking - [employer] Claus Damon MD Visit type - Emergency Visit Emergency Visit: No - New Patient This patient is new to me today: No - Critical Care Critical Care patient: No - Discharge Referral Referred to [facility] No ATTENDING PHYSICIAN STATEMENT I saw and evaluated the patient. I reviewed the resident's note and discussed the case with the resident. I agree with the resident's findings and plan as documented. SUBJECTIVE: OBJECTIVE: ASSESSMENT AND PLAN:
--- NOTE | 2018-11-23 14:21 | PN ---
Progress Note, Physician History of Present Illness: PULMONARY ALERT,C/O SOB AT REST ALTHOUGH LOOKS COMFORTABLE,REFUSING BIPAP. PT C/O RUE PAIN - Current Medication List Current Medications: Active Medications Acetaminophen (Tylenol -) 650 mg PO Q6H PRN PRN Reason: PAIN Last Admin: 11/22/18 09:23 Dose: 650 mg Albuterol Sulfate (Ventolin Hfa Inhaler -) 2 puff IH Q4H PRN PRN Reason: SHORT OF BREATH/WHEEZING Last Admin: 11/20/18 23:19 Dose: 2 puff Albuterol Sulfate (Ventolin 0.083% Nebulizer Soln -) 1 amp NEB Q4H PRN PRN Reason: SHORT OF BREATH/WHEEZING Last Admin: 11/21/18 23:15 Dose: 1 amp Arformoterol Tartrate (Brovana (Restricted To Pulmonology/Resp) -) 1 amp NEB RBID JALYN Last Admin: 11/23/18 08:00 Dose: 1 amp Bacitracin (Bacitracin -) 1 applic TP DAILY JALYN Last Admin: 11/23/18 10:48 Dose: 1 applic Enoxaparin Sodium (Lovenox -) 40 mg SQ DAILY JALYN Last Admin: 11/22/18 10:25 Dose: 40 mg Furosemide (Lasix -) 20 mg PO DAILY JALYN Last Admin: 11/23/18 10:48 Dose: Not Given Piperacillin Sod/Tazobactam (Sod 3.375 gm/ Dextrose) 50 mls @ 100 mls/hr IVPB Q8H-IV JALYN; Protocol Last Admin: 11/23/18 10:47 Dose: 100 mls/hr Vancomycin HCl 1,500 mg/ (Dextrose) 500 mls @ 250 mls/hr IVPB Q24H JALYN; Protocol Last Admin: 11/23/18 12:29 Dose: 250 mls/hr Isosorbide Mononitrate (Imdur -) 60 mg PO HS JALYN Last Admin: 11/23/18 00:42 Dose: 60 mg Montelukast Sodium (Singulair -) 10 mg PO HS JALYN Last Admin: 11/23/18 00:42 Dose: 10 mg Prednisone (Deltasone -) 20 mg PO DAILY JALYN Last Admin: 11/23/18 10:47 Dose: 20 mg Tiotropium [place] (Spiriva Respimat) 2 puff IH DAILY JALYN Last Admin: 11/23/18 10:48 Dose: 2 puff - Objective Vital Signs: Vital Signs Temperature 98.5 F 11/23/18 10:21 Pulse Rate 96 H 11/23/18 10:21 Respiratory Rate 22 H 11/23/18 10:21 Blood Pressure 120/50 L 11/23/18 10:21 O2 Sat by Pulse Oximetry (%) 93 L 11/23/18 09:00 Constitutional: Yes: Well Nourished, Calm Eyes: Yes: WNL HENT: Yes: WNL Neck: Yes: WNL Cardiovascular: Yes: Regular Rate and Rhythm, S1, S2 Respiratory: Yes: Diminished Gastrointestinal: Yes: Normal Bowel Sounds, Soft Extremities: Yes: Erythema (RUE SWOLLEN,TENDER,ERYTHEMA) Edema: Yes Labs: CBC, BMP 11/23/18 07:38 11/23/18 07:38 Laboratory Tests 11/23/18 11:02 ABG pH 7.44 ABG pCO2 at Pt Temp 46.1 H ABG pO2 at Pt Temp 67.7 L ABG HCO3 30.8 H ABG O2 Sat (Measured) 91.8 L Problem List - Problems (1) Sleep apnea Code(s): G47.30 - SLEEP APNEA, UNSPECIFIED (2) Cellulitis Code(s): L03.90 - CELLULITIS, UNSPECIFIED (3) COPD (chronic obstructive pulmonary disease) Code(s): J44.9 - CHRONIC OBSTRUCTIVE PULMONARY DISEASE, UNSPECIFIED (4) Idiopathic chronic venous hypertension of both lower extremities with ulcer and inflammation Code(s): I87.333 - CHRONIC VENOUS HTN W ULCER AND INFLAM OF BILATERAL LOW EXTRM ; L97.919 - NON-PRS CHRONIC ULC UNSP PRT OF R LOW LEG W UNSP SEVERITY; L97.929 - NON-PRS CHRONIC ULC UNSP PRT OF L LOW LEG W UNSP SEVERITY (5) Lymph edema Code(s): I89.0 - LYMPHEDEMA, NOT ELSEWHERE CLASSIFIED (6) Venous insufficiency of both lower extremities Code(s): I87.2 - VENOUS INSUFFICIENCY (CHRONIC) (PERIPHERAL) (7) CAD (coronary artery disease) Code(s): I25.10 - ATHSCL HEART DISEASE OF [place] CORONARY ARTERY W/O ANG PCTRS (8) Morbid obesity Code(s): E66.01 - MORBID (SEVERE) OBESITY DUE TO EXCESS CALORIES (9) Pulmonary HTN Code(s): I27.20 - PULMONARY HYPERTENSION, UNSPECIFIED (10) Cellulitis Code(s): L03.90 - CELLULITIS, UNSPECIFIED (11) Chronic respiratory failure with hypoxia and hypercapnia Code(s): J96.11 - CHRONIC RESPIRATORY FAILURE WITH HYPOXIA; J96.12 - CHRONIC RESPIRATORY FAILURE WITH HYPERCAPNIA Assessment/Plan IMP ADVANCED COPD O2 DEPENDENT WITH CHRONIC HYPOXEMIC/HYPERCAPNEIC RESPIRATORY FAILURE PULMONARY HTN SEVERE OSAS NOT COMPLIANT WITH CPAP ASHD CELLULITIS MORBID OBESITY PLAN INHALED BRONCHODILATORS O2 BIPAP AT NIGHT PT REFUSES ABX PER ID CT RUE PT IS A HIGH RISK FOR INTRA AND POST-OP PULMONARY COMPLICATION SECONDARY SEVERE COPD,PULMONARY HTN,ASHD,CHF DR MCPHERSON Problem List - Problems (1) Sleep apnea Code(s): G47.30 - SLEEP APNEA, UNSPECIFIED (2) Cellulitis Code(s): L03.90 - CELLULITIS, UNSPECIFIED (3) COPD (chronic obstructive pulmonary disease) Code(s): J44.9 - CHRONIC OBSTRUCTIVE PULMONARY DISEASE, UNSPECIFIED (4) Idiopathic chronic venous hypertension of both lower extremities with ulcer and inflammation Code(s): I87.333 - CHRONIC VENOUS HTN W ULCER AND INFLAM OF BILATERAL LOW EXTRM ; L97.919 - NON-PRS CHRONIC ULC UNSP PRT OF R LOW LEG W UNSP SEVERITY; L97.929 - NON-PRS CHRONIC ULC UNSP PRT OF L LOW LEG W UNSP SEVERITY (5) Lymph edema Code(s): I89.0 - LYMPHEDEMA, NOT ELSEWHERE CLASSIFIED (6) Venous insufficiency of both lower extremities Code(s): I87.2 - VENOUS INSUFFICIENCY (CHRONIC) (PERIPHERAL) (7) CAD (coronary artery disease) Code(s): I25.10 - ATHSCL HEART DISEASE OF [place] CORONARY ARTERY W/O ANG PCTRS (8) Morbid obesity Code(s): E66.01 - MORBID (SEVERE) OBESITY DUE TO EXCESS CALORIES (9) Pulmonary HTN Code(s): I27.20 - PULMONARY HYPERTENSION, UNSPECIFIED (10) Cellulitis Code(s): L03.90 - CELLULITIS, UNSPECIFIED (11) Chronic respiratory failure with hypoxia and hypercapnia Code(s): J96.11 - CHRONIC RESPIRATORY FAILURE WITH HYPOXIA; J96.12 - CHRONIC RESPIRATORY FAILURE WITH HYPERCAPNIA
[2018-11-23] MEDS: ALBUTEROL SO4 0.083% IH SOL 2.5 MG/3 ML VIAL.NEB. NEB PRN (16:10)
--- NOTE | 2018-11-23 16:12 | PN ---
Teaching Attending Note Name of Resident: Claus Damon ATTENDING PHYSICIAN STATEMENT I saw and evaluated the patient. I reviewed the resident's note and discussed the case with the resident. I agree with the resident's findings and plan as documented. SUBJECTIVE: Ongoing R arm pain/redness/tenderness. No fever/chills. Complains of limited effort tolerance due to dyspnea. Refuses BiPAP, refuses Pul Rehab. Using abusive language this am including explicatives. Declines further medical interview. OBJECTIVE: Afebrile, Hemodynamically Stable. Appears comfortable on 2L O2. No dyspnea/respiratory distress. Declines physical exam Laboratory Results - last 24 hr 11/23/18 11/23/18 11/23/18 07:38 07:38 11:02 WBC 7.6 RBC 5.85 H Hgb 12.8 Hct 40.8 MCV 69.7 L MCH 21.8 L MCHC 31.3 L RDW 15.9 Plt Count 188 MPV 8.2 Absolute Neuts (auto) 5.7 Neutrophils % 75.4 Lymphocytes % 12.5 Monocytes % 8.9 Eosinophils % 2.3 Basophils % 0.9 Nucleated RBC % 0 Anticoagulation Therapy No Result Required. Puncture Site Left radial ABG pH 7.44 ABG pCO2 at Pt Temp 46.1 H ABG pO2 at Pt Temp 67.7 L ABG HCO3 30.8 H ABG O2 Sat (Measured) 91.8 L ABG O2 Content 16.5 ABG Base Excess 6.2 H Mauri Test Positive O2 Delivery Device No Result Required. Oxygen Flow Rate Yes Vent Mode No Result Required. Vent Rate No Result Required. Mechanical Rate No Result Required. Pressure Support Vent No Result Required. Sodium 140 Potassium 4.1 Chloride 99 Carbon Dioxide 36 H Anion Gap 6 L BUN 14.5 Creatinine 0.9 Est GFR (CKD-EPI)AfAm 107.22 Est GFR (CKD-EPI)NonAf 92.51 Random Glucose 76 Calcium 8.8 Phosphorus 3.8 Magnesium 2.1 Total Bilirubin 0.8 AST 31 ALT 27 Alkaline Phosphatase 76 Total Protein 6.8 Albumin 3.3 L Current Medications Generic Name Dose Route Start Last Admin Trade Name Freq PRN Reason Stop Dose Admin Acetaminophen 650 mg 11/20/18 19:20 11/22/18 09:23 Tylenol - PO 650 mg Q6H PRN Administration PAIN Albuterol Sulfate 2 puff 11/20/18 13:36 11/20/18 23:19 Ventolin Hfa Inhaler - IH 2 puff Q4H PRN Administration SHORT OF BREATH/WHEEZING Albuterol Sulfate 1 amp 11/21/18 15:38 11/23/18 16:10 Ventolin 0.083% Nebulizer Soln - NEB 1 amp Q4H PRN Administration SHORT OF BREATH/WHEEZING Arformoterol Tartrate 1 amp 11/21/18 20:00 11/23/18 08:00 [place] (Restricted To Pulmonology/Resp) - NEB 1 amp RBID JALYN Administration Bacitracin 1 applic 11/20/18 19:30 11/23/18 10:48 Bacitracin - TP 1 applic DAILY JALYN Administration Enoxaparin Sodium 40 mg 11/21/18 10:00 11/22/18 10:25 Lovenox - SQ 40 mg DAILY JALYN Administration Furosemide 20 mg 11/21/18 10:00 11/23/18 10:48 Lasix - PO Not Given DAILY JALYN Piperacillin Sod/Tazobactam 50 mls @ 100 mls/hr 11/20/18 14:30 11/23/18 10:47 Sod 3.375 gm/ Dextrose IVPB 100 mls/hr Q8H-IV JALYN Administration Protocol Vancomycin HCl 1,500 mg/ 500 mls @ 250 mls/hr 11/23/18 10:15 11/23/18 12:29 Dextrose IVPB 250 mls/hr Q24H JALYN Administration Protocol Isosorbide Mononitrate 60 mg 11/22/18 08:23 11/23/18 00:42 Imdur - PO 60 mg HS JALYN Administration Montelukast Sodium 10 mg 11/20/18 22:18 11/23/18 00:42 Singulair - PO 10 mg HS JALYN Administration Prednisone 20 mg 11/20/18 22:30 11/23/18 10:47 Deltasone - PO 20 mg DAILY JALYN Administration Tiotropium [place] 2 puff 11/21/18 15:45 11/23/18 10:48 Spiriva Respimat IH 2 puff DAILY JALYN Administration Home Medications Medication Instructions Recorded Furosemide [Lasix -] 20 mg PO DAILY 03/09/17 Prednisone 20 mg PO ASDIR 03/09/17 Albuterol Sulfate [Proair Hfa] 2 puff IH Q4H PRN 07/20/18 Isosorbide Mononitrate [Isosorbide 30 mg PO HS 07/20/18 Mononitrate ER] Montelukast Na [Singulair -] 10 mg PO DAILY 07/20/18 Doxycycline Hyclate 100 mg PO BID 11/20/18 ASSESSMENT AND PLAN: 62 year old male with history of Chronic Respiratory Failure sec to COPD (on 2L O2 via NC), Chronic Diastolic CHF, HTN, GAY, Bilateral LE lymphedema, presents with R forearm erythema/pain/tenderness after possibly sustaining an insect bite 3 days ago. 1. Acute RUE Cellulitis Afebrile, Hemodynamically Stable. No significant improvement in redness/swelling vanco added to Zosyn by ID CT RUE requested as per ID - patient declines as he is unable to lay flat in CT Scan. No clinical evidence of abscess. 2. Chronic Respiratory Failure secondary to COPD - Stable, no evidence of acute exacerbation CXR - no infiltrate. Steroid dependent - on Prednisone 20mg - continue. Bronchodlators PRN Continue Singulair. Pulm following - recommended CT Chest but patient declines as unable to lie flat for CT Scan. Hx GAY - non-compliant with BiPAP - refuses to use. also declines referral for Pulmonary rehab 3. HTN/Hx occluded RCA/MR - seen by Cardio - continue Imdur (dose increased to 60mg as per Cardio). Further medication optmization as per Cardio. 4. Chronic Diastolic CHF - no evidence of decompensation. Continue Lasix. Cardiology following. 5. Microscopic Hematuria - asymptomatic. For out-patient follow up/Urology referral. 6. Hx of Rectal Stricture (reported by patient), evaluated by GI - plan was for Colonoscopy today, liquid diet was ordered by GI for yesterday. Colonoscopy cancelled by GI. 7. Microcytic Anemia, MCV 69 - Iron deficiency, Iron Sat 12, likely sec to chronic blood loss anemia. GI consulted for further work-up. Will start FeSo4 supplementation. 8. Chronic Venous Stasis/LE varicosities - TEDs, Lasix. DVT Px - Lovenox SQ.
[2018-11-23] MEDS: ENOXAPARIN NA (PORCINE) 40 MG/0.4 ML DISP.SYRIN SQ SCH (17:58)
[2018-11-23] MEDS: DOCUSATE SODIUM 100 MG CAPSULE (FP) PO SCH (21:45)
[2018-11-23] MEDS: FERROUS SO4 325 MG TABLET (FP) PO SCH (21:45)
[2018-11-24] MEDS ORDERED: PIPERACILLIN/TAZOBACTAM 3.375 GM VIAL IVPB ONE ×3 (02:37→17:19)
[2018-11-24] MEDS ORDERED: DEXTROSE 5%-WATER - 50 ML IVPB ONE ×3 (02:37→17:19)
[2018-11-24] MEDS: PIPERACILLIN/TAZOB 3.375 GM 3.375 GM in DEXTROSE 5%-WATER - 50 ML IVPB SCH ×2 (02:56→09:28)
[2018-11-24] MEDS: ALBUTEROL SO4 0.083% IH SOL 2.5 MG/3 ML VIAL.NEB. NEB PRN (03:40)
[2018-11-24] MEDS: ALBUTEROL SO4 8 GM HFA INHALER IH PRN (03:44)
--- NOTE | 2018-11-24 07:48 | PN.GI ---
GI Progress Note Subjective: NO NEW COMPLAINTS DOING OK TODAY - Objective Vital Signs: Vital Signs Temperature 98.7 F 11/24/18 05:00 Pulse Rate 85 11/24/18 05:00 Respiratory Rate 20 11/24/18 05:00 Blood Pressure 118/68 11/24/18 05:00 O2 Sat by Pulse Oximetry (%) 94 L 11/23/18 21:00 Constitutional: Well Nourished, No Distress, Calm Eyes: Yes: WNL HENT: Yes: WNL Neck: Yes: WNL Cardiovascular: Yes: WNL, Regular Rate and Rhythm Respiratory: Yes: WNL, Regular, CTA Bilaterally Gastrointestinal Inspection: Yes: WNL ...Auscultate: Yes: Normoactive Bowel Sounds, Other (OBESE) Musculoskeletal: Yes: WNL Extremities: Yes: Other (CELLULITIS / EDEMA) Labs: CBC, BMP 11/23/18 07:38 11/23/18 07:38 Assessment/Plan IMPRESSION: CHANGE IN BOWEL HABIT / CONSTIPATION CELLULITIS COPD REC: HOLD OFF ON ANY INVASIVE PROCEDURES UNTIL HE IS MEDICALLY OPTIMIZED AND CLEARED BY PULMONARY / CARDIOLOGY DIET TOLERATED ABX PER PRIMARY MEDICAL TEM
[2018-11-24] MEDS: ARFORMOTEROL TARTRATE 15 MCG/2 ML VIAL NEB SCH ×2 (08:00→20:10)
[2018-11-24 08:12] LABS: BASO % 0.4 % (0-2.0); EOS % 2.5 % (0-4.5); HEMATOCRIT 37.8 % (35.4-49); LYMPH % 13.9 % (8-40); MCH 22.2 pg (25.7-33.7); MCHC 31.8 g/dl (32.0-35.9); MEAN CELL VOLUME 69.9 fl (80-96); MEAN PLT VOLUME 8.2 fl (7.5-11.1); MONO % 10.4 % (3.8-10.2); NEUT % 72.8 % (42.8-82.8); PLATELET COUNT 180 K/MM3 (134-434); RBC 5.42 M/mm3 (4.00-5.60); RDW 15.7 % (11.9-15.9); WHITE BLOOD COUNT 7.5 K/mm3 (4.0-10.0)
[2018-11-24 08:38] LABS: ALBUMIN 3.2 g/dl (3.4-5.0); BILIRUBIN,TOTAL 0.6 mg/dL (0.2-1); CALCIUM 8.7 mg/dL (8.5-10.1); CREATININE 0.9 mg/dL (0.55-1.3); MAGNESIUM 2.1 mg/dL (1.8-2.4); PHOSPHOROUS 3.8 mg/dL (2.5-4.9); POTASSIUM 4.1 mmol/L (3.5-5.1); TOT PROT 6.6 g/dl (6.4-8.2)
[2018-11-24] MEDS: BACITRACIN 15 GM TUBE TOPICAL OINTMENT TP SCH (09:27)
[2018-11-24] MEDS: FERROUS SO4 325 MG TABLET (FP) PO SCH ×2 (09:27→21:34)
[2018-11-24] MEDS: FUROSEMIDE 20 MG TABLET (FP) PO SCH (09:28)
[2018-11-24] MEDS: DOCUSATE SODIUM 100 MG CAPSULE (FP) PO SCH ×2 (09:28→21:34)
[2018-11-24] MEDS: TIOTROPIUM BROMIDE 2.5 MCG (SPIRIVA) RESPIMAT INHALER IH SCH (09:29)
[2018-11-24] MEDS: predniSONE 10 MG TABLET (UD) PO SCH (09:29)
[2018-11-24] MEDS: ENOXAPARIN NA (PORCINE) 40 MG/0.4 ML DISP.SYRIN SQ SCH (09:29)
[2018-11-24] MEDS: VANCOMYCIN HCL 1,500 MG in DEXTROSE 5%-WATER - 500 ML IVPB SCH (11:04)
--- NOTE | 2018-11-24 13:35 | PN ---
Teaching Attending Note Name of Resident: Lorin Lee ATTENDING PHYSICIAN STATEMENT I saw and evaluated the patient. I reviewed the resident's note and discussed the case with the resident. I agree with the resident's findings and plan as documented. SUBJECTIVE: Declines further medical interview. OBJECTIVE: Afebrile, Hemodynamically Stable. Declines physical exam Agrees to resident interview and exam Laboratory Results - last 24 hr 11/24/18 11/24/18 07:30 07:30 WBC 7.5 RBC 5.42 Hgb 12.0 Hct 37.8 MCV 69.9 L MCH 22.2 L MCHC 31.8 L RDW 15.7 Plt Count 180 MPV 8.2 Absolute Neuts (auto) 5.4 Neutrophils % 72.8 Lymphocytes % 13.9 Monocytes % 10.4 H Eosinophils % 2.5 Basophils % 0.4 Nucleated RBC % 0 Sodium 140 Potassium 4.1 Chloride 100 Carbon Dioxide 34 H Anion Gap 6 L BUN 14.0 Creatinine 0.9 Est GFR (CKD-EPI)AfAm 107.22 Est GFR (CKD-EPI)NonAf 92.51 Random Glucose 88 Calcium 8.7 Phosphorus 3.8 Magnesium 2.1 Total Bilirubin 0.6 AST 27 ALT 26 Alkaline Phosphatase 75 Total Protein 6.6 Albumin 3.2 L Current Medications Generic Name Dose Route Start Last Admin Trade Name Freq PRN Reason Stop Dose Admin Acetaminophen 650 mg 11/20/18 19:20 11/22/18 09:23 Tylenol - PO 650 mg Q6H PRN Administration PAIN Albuterol Sulfate 2 puff 11/20/18 13:36 11/24/18 03:44 Ventolin Hfa Inhaler - IH 2 puff Q4H PRN Administration SHORT OF BREATH/WHEEZING Albuterol Sulfate 1 amp 11/21/18 15:38 11/24/18 03:40 Ventolin 0.083% Nebulizer Soln - NEB 1 amp Q4H PRN Administration SHORT OF BREATH/WHEEZING Arformoterol Tartrate 1 amp 11/21/18 20:00 11/24/18 08:00 Brovana (Restricted To Pulmonology/Resp) - NEB 1 amp RBID JALYN Administration Bacitracin 1 applic 11/20/18 19:30 11/24/18 09:27 Bacitracin - TP 1 applic DAILY JALYN Administration Docusate Sodium 100 mg 11/23/18 22:00 11/24/18 09:28 Colace - PO 100 mg BID JALYN Administration Enoxaparin Sodium 40 mg 11/21/18 10:00 11/24/18 09:29 Lovenox - SQ 40 mg DAILY JALYN Administration Ferrous Sulfate 325 mg 11/23/18 22:00 11/24/18 09:27 Feosol - PO 325 mg BID JALYN Administration Furosemide 20 mg 11/21/18 10:00 11/24/18 09:28 Lasix - PO 20 mg DAILY JALYN Administration Piperacillin Sod/Tazobactam 50 mls @ 100 mls/hr 11/20/18 14:30 11/24/18 09:28 Sod 3.375 gm/ Dextrose IVPB 100 mls/hr Q8H-IV JALYN Administration Protocol Vancomycin HCl 1,500 mg/ 500 mls @ 250 mls/hr 11/23/18 10:15 11/24/18 11:04 Dextrose IVPB 250 mls/hr Q24H JALYN Administration Protocol Isosorbide Mononitrate 60 mg 11/22/18 08:23 11/23/18 21:44 Imdur - PO 60 mg HS JALYN Administration Montelukast Sodium 10 mg 11/20/18 22:18 11/23/18 21:44 Singulair - PO 10 mg HS JALYN Administration Prednisone 20 mg 11/20/18 22:30 11/24/18 09:29 Deltasone - PO 20 mg DAILY JALYN Administration Tiotropium [place] 2 puff 11/21/18 15:45 11/24/18 09:29 Spiriva Respimat IH 2 puff DAILY JALYN Administration Home Medications Medication Instructions Recorded Furosemide [Lasix -] 20 mg PO DAILY 03/09/17 Prednisone 20 mg PO ASDIR 03/09/17 Albuterol Sulfate [Proair Hfa] 2 puff IH Q4H PRN 07/20/18 Isosorbide Mononitrate [Isosorbide 30 mg PO HS 07/20/18 Mononitrate ER] Montelukast Na [Singulair -] 10 mg PO DAILY 07/20/18 Doxycycline Hyclate 100 mg PO BID 11/20/18 ASSESSMENT AND PLAN: 62 year old male with history of Chronic Respiratory Failure sec to COPD (on 2L O2 via [place]), Chronic Diastolic CHF, HTN, GAY, Bilateral LE Lymphedema, presents with R forearm erythema/pain/tenderness after possibly sustaining an insect bite 3 days prior to admission. 1. Acute RUE Cellulitis Afebrile, Hemodynamically Stable. No significant improvement in redness/swelling Vanco added to Zosyn by ID CT RUE requested as per ID - patient declines as he is unable to lay flat in CT Scan. No clinical evidence of abscess. Elbow Xray - soft tissue calcification, ?FB ?Air medial inferior soft tissues. Orthopedics consulted. ID following. 2. Chronic Respiratory Failure secondary to COPD - Stable, no evidence of acute exacerbation CXR - no infiltrate. Steroid dependent - on Prednisone 20mg - continue. Bronchodlators PRN Continue Singulair. Pulm following - recommended CT Chest but patient declines as unable to lie flat for CT Scan. Hx GAY - non-compliant with BiPAP - refuses to use. Also declines referral for Pulmonary Rehab 3. HTN/Hx occluded RCA/MR - seen by Cardio - continue Imdur (dose increased to 60mg as per Cardio). Further medication optimization as per Cardio. 4. Chronic Diastolic CHF - no evidence of decompensation. Continue Lasix. Cardiology following. 5. Microscopic Hematuria - asymptomatic. For out-patient follow up/Urology referral. 6. Hx of Rectal Stricture (reported by patient), evaluated by GI, recommended for Colonoscopy, subsequently cancelled by GI. For out-patent GI follow up. 7. Microcytic Anemia, MCV 69 - Iron deficiency, Iron Sat 12, likely sec to chronic blood loss anemia. GI consulted for further work-up. Will start FeSo4 supplementation. 8. Chronic Venous Stasis/LE varicosities - TEDs, Lasix. DVT Px - Lovenox SQ.
--- NOTE | 2018-11-24 13:55 | PN ---
Physical Exam: SUBJECTIVE: Patient seen and examined at bedside. Irritated mood. Continues to refuse BIPAP at night. OBJECTIVE: Vital Signs Period Temp Pulse Resp BP Sys/Santiago Pulse Ox Last 24 Hr 98.3 F-98.7 F 77-92 20-20 118-140/56-78 94-94 GEN: AOx3. No acute distress. Irritated. RESP: Breath sounds equal, CTABL, no wheezing/ crackles. No use of access muscles of breathing. CV: Regular rate and rhythm, S1, S2 heard. No MRG. ABD: Soft, NTND, + bowel sounds, no guarding. Reducible umbilical hernia noted. EXTR: RUE erythema and warmth to R forearm. 1+ pitting edema R hand. 2+ pulses, well-perfused. PSYCH: Patient is in an aggravated mood. Affect is appropriate to mood. Denies AVH. Denies suicidal/ homicidal ideations. Laboratory Results - last 24 hr 11/24/18 11/24/18 07:30 07:30 WBC 7.5 RBC 5.42 Hgb 12.0 Hct 37.8 MCV 69.9 L MCH 22.2 L MCHC 31.8 L RDW 15.7 Plt Count 180 MPV 8.2 Absolute Neuts (auto) 5.4 Neutrophils % 72.8 Lymphocytes % 13.9 Monocytes % 10.4 H Eosinophils % 2.5 Basophils % 0.4 Nucleated RBC % 0 Sodium 140 Potassium 4.1 Chloride 100 Carbon Dioxide 34 H Anion Gap 6 L BUN 14.0 Creatinine 0.9 Est GFR (CKD-EPI)AfAm 107.22 Est GFR (CKD-EPI)NonAf 92.51 Random Glucose 88 Calcium 8.7 Phosphorus 3.8 Magnesium 2.1 Total Bilirubin 0.6 AST 27 ALT 26 Alkaline Phosphatase 75 Total Protein 6.6 Albumin 3.2 L Active Medications Generic Name Dose Route Start Last Admin Trade Name Freq PRN Reason Stop Dose Admin Acetaminophen 650 mg 11/20/18 19:20 11/22/18 09:23 Tylenol - PO 650 mg Q6H PRN Administration PAIN Albuterol Sulfate 2 puff 11/20/18 13:36 11/24/18 03:44 Ventolin Hfa Inhaler - IH 2 puff Q4H PRN Administration SHORT OF BREATH/WHEEZING Albuterol Sulfate 1 amp 11/21/18 15:38 11/24/18 03:40 Ventolin 0.083% Nebulizer Soln - NEB 1 amp Q4H PRN Administration SHORT OF BREATH/WHEEZING Arformoterol Tartrate 1 amp 11/21/18 20:00 11/24/18 08:00 [place] (Restricted To Pulmonology/Resp) - NEB 1 amp RBID JALYN Administration Bacitracin 1 applic 11/20/18 19:30 11/24/18 09:27 Bacitracin - TP 1 applic DAILY JALYN Administration Docusate Sodium 100 mg 11/23/18 22:00 11/24/18 09:28 Colace - PO 100 mg BID JALYN Administration Enoxaparin Sodium 40 mg 11/21/18 10:00 11/24/18 09:29 Lovenox - SQ 40 mg DAILY JALYN Administration Ferrous Sulfate 325 mg 11/23/18 22:00 11/24/18 09:27 Feosol - PO 325 mg BID JALYN Administration Furosemide 20 mg 11/21/18 10:00 11/24/18 09:28 Lasix - PO 20 mg DAILY JALYN Administration Piperacillin Sod/Tazobactam 50 mls @ 100 mls/hr 11/20/18 14:30 11/24/18 09:28 Sod 3.375 gm/ Dextrose IVPB 100 mls/hr Q8H-IV JALYN Administration Protocol Vancomycin HCl 1,500 mg/ 500 mls @ 250 mls/hr 11/23/18 10:15 11/24/18 11:04 Dextrose IVPB 250 mls/hr Q24H JALYN Administration Protocol Isosorbide Mononitrate 60 mg 11/22/18 08:23 11/23/18 21:44 Imdur - PO 60 mg HS JALYN Administration Montelukast Sodium 10 mg 11/20/18 22:18 11/23/18 21:44 Singulair - PO 10 mg HS JALYN Administration Prednisone 20 mg 11/20/18 22:30 11/24/18 09:29 Deltasone - PO 20 mg DAILY JALYN Administration Tiotropium [place] 2 puff 11/21/18 15:45 11/24/18 09:29 Spiriva Respimat IH 2 puff DAILY JALYN Administration ASSESSMENT/PLAN: 62 y.o. M PMH COPD (on 2L home O2), chronic diastolic CHF, HTN, GAY, b/l LE lymphedema, rectal stricture presented with RUE erythema and pain. #Acute cellulitis of RUE -Abx: Vanc, Zosyn -R elbow XR 11/23: minimal swelling and some questionable soft tissue air in the medial inferior soft tissues by the proximal ulna -Pt declining CT RUE -ID following (Dr. Davenport) -Ortho consulted (Dr. Larkin) #Chronic resp failure 2/2 COPD -CXR neg -C/w prednisone 20mg PO daily, singulair, ventolin, brovana, spiriva -Refusing BIPAP -Pulm following (Dr. Donohue) #Diastolic CHF -C/w Lasix 20mg daily -Cardio following (Dr. Restrepo) #HTN -C/w Imdur #GAY -Refusing BIPAP -Pulm following #Rectal stricture hx -GI saw patient- will f/u outpatient for colonoscopy #Microcytic anemia -MCV 69.9, low iron & TIBC -Feosol 325 BID -F/u GI outpatient for colonoscopy #Chronic LE lymphedema -Lasix 20mg daily -Compression stockings #FEN -No standing fluids -Monitor lytes -Fat & Na controlled diet #DVT PPX LVX 40mg SQ daily Visit type - Emergency Visit Emergency Visit: No - New Patient This patient is new to me today: No - Critical Care Critical Care patient: No ATTENDING PHYSICIAN STATEMENT I saw and evaluated the patient. I reviewed the resident's note and discussed the case with the resident. I agree with the resident's findings and plan as documented. SUBJECTIVE: OBJECTIVE: ASSESSMENT AND PLAN:
--- NOTE | 2018-11-24 14:02 | PN ---
Progress Note, Physician History of Present Illness: Pt seen and examined, chart reviewed. He states Rt elbow/forearm erythema/ tenderness is improving since yesterday. Remains afebrile. Elbow xray results noted. No current abd pain. - Current Medication List Current Medications: Active Medications Acetaminophen (Tylenol -) 650 mg PO Q6H PRN PRN Reason: PAIN Last Admin: 11/22/18 09:23 Dose: 650 mg Albuterol Sulfate (Ventolin Hfa Inhaler -) 2 puff IH Q4H PRN PRN Reason: SHORT OF BREATH/WHEEZING Last Admin: 11/24/18 03:44 Dose: 2 puff Albuterol Sulfate (Ventolin 0.083% Nebulizer Soln -) 1 amp NEB Q4H PRN PRN Reason: SHORT OF BREATH/WHEEZING Last Admin: 11/24/18 03:40 Dose: 1 amp Arformoterol Tartrate (Brovana (Restricted To Pulmonology/Resp) -) 1 amp NEB RBID [facility] Last Admin: 11/24/18 08:00 Dose: 1 amp Bacitracin (Bacitracin -) 1 applic TP DAILY [facility] Last Admin: 11/24/18 09:27 Dose: 1 applic Docusate Sodium (Colace -) 100 mg PO BID [facility] Last Admin: 11/24/18 09:28 Dose: 100 mg Enoxaparin Sodium (Lovenox -) 40 mg SQ DAILY [facility] Last Admin: 11/24/18 09:29 Dose: 40 mg Ferrous Sulfate (Feosol -) 325 mg PO BID [facility] Last Admin: 11/24/18 09:27 Dose: 325 mg Furosemide (Lasix -) 20 mg PO DAILY [facility] Last Admin: 11/24/18 09:28 Dose: 20 mg Piperacillin Sod/Tazobactam (Sod 3.375 gm/ Dextrose) 50 mls @ 100 mls/hr IVPB Q8H-IV JALYN; Protocol Last Admin: 11/24/18 09:28 Dose: 100 mls/hr Vancomycin HCl 1,500 mg/ (Dextrose) 500 mls @ 250 mls/hr IVPB Q24H JALYN; Protocol Last Admin: 11/24/18 11:04 Dose: 250 mls/hr Isosorbide Mononitrate (Imdur -) 60 mg PO HS [facility] Last Admin: 11/23/18 21:44 Dose: 60 mg Montelukast Sodium (Singulair -) 10 mg PO HS [facility] Last Admin: 11/23/18 21:44 Dose: 10 mg Prednisone (Deltasone -) 20 mg PO DAILY [facility] Last Admin: 11/24/18 09:29 Dose: 20 mg Tiotropium [place] (Spiriva Respimat) 2 puff IH DAILY [facility] Last Admin: 11/24/18 09:29 Dose: 2 puff - Objective Vital Signs: Vital Signs Temperature 98.6 F 11/24/18 11:00 Pulse Rate 77 11/24/18 11:00 Respiratory Rate 20 11/24/18 11:00 Blood Pressure 123/78 11/24/18 11:00 O2 Sat by Pulse Oximetry (%) 94 L 11/24/18 09:00 Constitutional: Yes: No Distress Cardiovascular: Yes: Regular Rate and Rhythm Respiratory: Yes: Regular, On Nasal O2 Gastrointestinal: Yes: Normal Bowel Sounds, Soft, Abdomen, Obese Genitourinary: Yes: WNL Extremities: Yes: Erythema (Rt elbow/forearm erythema/edema, minimal warmth, + FROM , no tenderness with palpation,) Labs: CBC, BMP 11/24/18 07:30 11/24/18 07:30 Microbiology 11/21/18 07:33 Blood - Peripheral Venous Blood Culture - Preliminary NO GROWTH OBTAINED AFTER 72 HOURS, INCUBATION TO CONTINUE FOR 2 DAYS. 11/21/18 07:20 Blood - Peripheral Venous Blood Culture - Preliminary NO GROWTH OBTAINED AFTER 72 HOURS, INCUBATION TO CONTINUE FOR 2 DAYS. - ....Imaging X-ray: Report Reviewed Problem List - Problems (1) Cellulitis Code(s): L03.90 - CELLULITIS, UNSPECIFIED (2) Chronic respiratory failure with hypoxia and hypercapnia Code(s): J96.11 - CHRONIC RESPIRATORY FAILURE WITH HYPOXIA; J96.12 - CHRONIC RESPIRATORY FAILURE WITH HYPERCAPNIA (3) Constipation Code(s): K59.00 - CONSTIPATION, UNSPECIFIED (4) Pulmonary HTN Code(s): I27.20 - PULMONARY HYPERTENSION, UNSPECIFIED (5) Sleep apnea Code(s): G47.30 - SLEEP APNEA, UNSPECIFIED (6) COPD (chronic obstructive pulmonary disease) Code(s): J44.9 - CHRONIC OBSTRUCTIVE PULMONARY DISEASE, UNSPECIFIED (7) Diabetes mellitus Code(s): E11.9 - TYPE 2 DIABETES MELLITUS WITHOUT COMPLICATIONS (8) Lymph edema Code(s): I89.0 - LYMPHEDEMA, NOT ELSEWHERE CLASSIFIED (9) 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 attack Code(s): F06.4 - ANXIETY DISORDER DUE TO KNOWN PHYSIOLOGICAL CONDITION; F41.0 - PANIC DISORDER [EPISODIC PAROXYSMAL ANXIETY] (10) CAD (coronary artery disease) Code(s): I25.10 - ATHSCL HEART DISEASE OF [place] CORONARY ARTERY W/O ANG PCTRS (11) Morbid obesity Code(s): E66.01 - MORBID (SEVERE) OBESITY DUE TO EXCESS CALORIES Assessment/Plan RUE cellulitis morbid obesity chronic respiratory failure GAY CHF HTN -- Xray of elbow consistent with soft tissue infection, Pt not able to lay flat and is refusing CT/MRI -- reports improvement in RUE edema/erythema/tenderness -- continue Zosyn, Vancomycin -- check Vancomycin Trough prior to 4th dose -- continue monitor vitals, pt is afebrile/stable at this time -- wound care
--- NOTE | 2018-11-24 16:37 | CONSULT ---
Consult - text type - Consultation Consultation Note: ORTHOPEDIC SURGERY CONSULTATION NOTE Department of Orthopedic Surgery HISTORY OF PRESENT ILLNESS Mr. Bertrand is a 62 year old male with PMH of COPD (on 2L home o2), CHF, HTN, GAY, B/L lymphedema presents to the [facility] with complaints of forearm redness and pain. The patient states his pain started insidiously with no specific injury. The patient states he woke up one morning with redness and swelling in his right forearm posteriorly. He states that later that day, he bumped his elbow and re-opened a chronic scar that he has just distal to his olecranon. He denied any fevers or chills. The orthopedic service was consulted for cellulitis of the right forearm. The patient states his pain has improved greatly since he was admitted to the hospital, and that his swelling and erythema has also improved. Denies any other injuries. Denies numbness, tingling or other constitutional complaints. Denies tobacco use, drug use, alcohol abuse. The patient lives with family and uses no assistive devices at baseline. FAMILY HISTORY non-contributory REVIEW OF SYMPTOMS A twelve-point review of systems was performed and was negative except as noted in HPI. PHYSICAL EXAM Constitutional: Alert and oriented to person, place, and time. Appears well- developed and well-nourished. No acute distress, appropriate mood and affect. Right Upper Extremity: Skin warm, dry, and intact; There is a 1x2cm superficial abrasion just distal to the olecranon. No discharge currently. There is erythema around the olecranon as well as distal to the olecranon over the forearm posteriorly. There is some swelling and edema noted, which patient states has improved since yesterday. Muscle mass equal and symmetric to contralateral side. No atrophy noted. No masses or effusions noted. No tenderness to palpation of the elbow, shoulder or wrist; nontender throughout rest of extremity. Full passive and active ROM of the elbow, wrist, fingers and shoulder, free from pain. Joints stable with no pathologic laxity. M/R/U/MSK/AX motor intact; SILT distally; 2+ radial pulses; Cap refill brisk. Tone and reflexes normal. Compartments soft and compressible. Left Upper Extremity: Skin warm, dry, and intact; no lesions, rashes or ulcers noted. Muscle mass equal and symmetric to contralateral side. No atrophy noted. No masses or effusions noted. No tenderness to palpation all joints; nontender throughout rest of extremity. Full passive and active ROM, free from pain. Joints stable with no pathologic laxity. M/R/U/MSK/AX motor intact; SILT distally; 2+ radial pulses; Cap refill brisk. Tone and reflexes normal. Active Problems Problem Status Category Onset Cellulitis Acute Medical Cellulitis Acute Medical Chronic respiratory failure with hypoxia and hypercapnia Acute Medical Constipation Acute Medical Pulmonary HTN Acute Medical Sleep apnea Acute Medical Past Medical History Cardio/Vascular CHF,HTN Pulmonary COPD Social History Smoking history Former smoker If you are a former smoker, 10 yrs ago when did you quit? Hx Alcohol Use No Allergies Allergy/AdvReac Type Severity Reaction Status Date / Time No Known Allergies Allergy Verified 11/20/18 08:50 Active Medications Generic Name Dose Route Start Last Admin Trade Name Freq PRN Reason Stop Dose Admin Acetaminophen 650 mg 11/20/18 19:20 11/22/18 09:23 Tylenol - PO 650 mg Q6H PRN Administration PAIN Albuterol Sulfate 2 puff 11/20/18 13:36 11/24/18 03:44 Ventolin Hfa Inhaler - IH 2 puff Q4H PRN Administration SHORT OF BREATH/WHEEZING Albuterol Sulfate 1 amp 11/21/18 15:38 11/24/18 03:40 Ventolin 0.083% Nebulizer Soln - NEB 1 amp Q4H PRN Administration SHORT OF BREATH/WHEEZING Arformoterol Tartrate 1 amp 11/21/18 20:00 11/24/18 08:00 Brovana (Restricted To Pulmonology/Resp) - NEB 1 amp RBID JALYN Administration Bacitracin 1 applic 11/20/18 19:30 11/24/18 09:27 Bacitracin - TP 1 applic DAILY JALYN Administration Docusate Sodium 100 mg 11/23/18 22:00 11/24/18 09:28 Colace - PO 100 mg BID JALYN Administration Enoxaparin Sodium 40 mg 11/21/18 10:00 11/24/18 09:29 Lovenox - SQ 40 mg DAILY JALYN Administration Ferrous Sulfate 325 mg 11/23/18 22:00 11/24/18 09:27 Feosol - PO 325 mg BID JALYN Administration Furosemide 20 mg 11/21/18 10:00 11/24/18 09:28 Lasix - PO 20 mg DAILY JALYN Administration Piperacillin Sod/Tazobactam 50 mls @ 100 mls/hr 11/20/18 14:30 11/24/18 09:28 Sod 3.375 gm/ Dextrose IVPB 100 mls/hr Q8H-IV JALYN Administration Protocol Vancomycin HCl 1,500 mg/ 500 mls @ 250 mls/hr 11/23/18 10:15 11/24/18 11:04 Dextrose IVPB 250 mls/hr Q24H JALYN Administration Protocol Isosorbide Mononitrate 60 mg 11/22/18 08:23 11/23/18 21:44 Imdur - PO 60 mg HS JALYN Administration Montelukast Sodium 10 mg 11/20/18 22:18 11/23/18 21:44 Singulair - PO 10 mg HS JALYN Administration Prednisone 20 mg 11/20/18 22:30 11/24/18 09:29 Deltasone - PO 20 mg DAILY JALYN Administration Tiotropium [place] 2 puff 11/21/18 15:45 11/24/18 09:29 Spiriva Respimat IH 2 puff DAILY JALYN Administration Vital Signs (last) Temp Pulse Resp BP Pulse Ox 98.6 F 77 20 123/78 94 L 11/24/18 11:00 11/24/18 11:00 11/24/18 11:00 11/24/18 11:00 11/24/18 09:00 Intake and Output 11/22/18 11/23/18 11/24/18 23:59 23:59 23:59 Intake Total 750 630 Balance 750 630 Intake: IVPB 150 50 Oral 600 580 Other: Voiding Method Urinal Urinal Toilet # Unmeasured Voids Void 4 2 1 Bowel Movement Yes Yes Weight 301 lb Height 5 ft 11 in Body Mass Index (BMI) 42.0 Laboratory 11/24/18 07:30 11/24/18 07:30 IMAGING I personally reviewed all radiographs, CT, and other imaging. They demonstrate no fractures dislocations or bony lesions. There are two small questionable foreign bodies versus a calcification distal to the olecranon. ASSESSMENT AND PLAN Mr Bertrand is a 62 year old male presenting with right arm cellulitis. We have reviewed the imaging and clinical findings in detail, as well as their potential implications. After appropriate informed discussion, we agreed on the following plan: 1. Pain control 2. DVT ppx 3. Continue medical management (antibiotics, wound care, etc) 4. Appreciated ID consult - agree with recommendation of CT scan of the right elbow and forearm (patient has refused thus far) 5. The patient states his pain and swelling occurred prior to any trauma. No signs of septic elbow joint at this time. 6. No further orthopedic intervention at this time, please re-consult if condition worsens. All questions were answered. Thank you for involving our team in the care of this patient.
[2018-11-24] MEDS: ISOSORBIDE MONONITRATE 30 MG TAB.SR.24H (FP) PO SCH (21:34)
[2018-11-24] MEDS: MONTELUKAST NA 10 MG TABLET PO SCH (21:34)
[2018-11-25] MEDS ORDERED: DEXTROSE 5%-WATER - 50 ML IVPB ONE ×3 (01:03→17:24)
[2018-11-25] MEDS ORDERED: PIPERACILLIN/TAZOBACTAM 3.375 GM VIAL IVPB ONE ×3 (01:03→17:23)
[2018-11-25] MEDS: PIPERACILLIN/TAZOB 3.375 GM 3.375 GM in DEXTROSE 5%-WATER - 50 ML IVPB SCH ×3 (01:14→18:27)
--- NOTE | 2018-11-25 08:20 | PN.GI ---
GI Progress Note Subjective: NO NEW COMPLAINTS - FEELING BETTER TODAY - Objective Vital Signs: Vital Signs Temperature 98.0 F 11/25/18 06:00 Pulse Rate 72 11/25/18 06:00 Respiratory Rate 18 11/25/18 06:00 Blood Pressure 124/86 11/25/18 06:00 O2 Sat by Pulse Oximetry (%) 94 L 11/24/18 21:00 Constitutional: Well Nourished, No Distress, Calm Eyes: Yes: WNL HENT: Yes: WNL Neck: Yes: WNL Cardiovascular: Yes: WNL, Regular Rate and Rhythm Respiratory: Yes: WNL, Regular, CTA Bilaterally Gastrointestinal Inspection: Yes: WNL ...Auscultate: Yes: Normoactive Bowel Sounds Extremities: Yes: Erythema Edema: Yes Labs: CBC, BMP 11/24/18 07:30 11/24/18 07:30 Problem List - Problems (1) Cellulitis Assessment/Plan: ABX PER PRIMARY MEDICAL TEAM FOR CELLULITIS COLONOSCOPY TO BE SCHEDULED ONCE THE ACUTE PROCESS HAS RESOLVED AND ONCE HE IS OPTIMIZED FROM A CARDIOPULMONARY STANDPOINT. DIET TOLERATED Code(s): L03.90 - CELLULITIS, UNSPECIFIED (2) Constipation Code(s): K59.00 - CONSTIPATION, UNSPECIFIED
[2018-11-25] MEDS: ARFORMOTEROL TARTRATE 15 MCG/2 ML VIAL NEB SCH ×2 (08:49→20:39)
[2018-11-25] MEDS: VANCOMYCIN HCL 1,500 MG in DEXTROSE 5%-WATER - 500 ML IVPB SCH (11:39)
[2018-11-25] MEDS: DOCUSATE SODIUM 100 MG CAPSULE (FP) PO SCH ×2 (11:53→23:40)
[2018-11-25] MEDS: predniSONE 10 MG TABLET (UD) PO SCH (11:53)
[2018-11-25] MEDS: ENOXAPARIN NA (PORCINE) 40 MG/0.4 ML DISP.SYRIN SQ SCH (11:54)
[2018-11-25] MEDS: FUROSEMIDE 20 MG TABLET (FP) PO SCH (11:54)
[2018-11-25] MEDS: TIOTROPIUM BROMIDE 2.5 MCG (SPIRIVA) RESPIMAT INHALER IH SCH (11:54)
[2018-11-25] MEDS: BACITRACIN 15 GM TUBE TOPICAL OINTMENT TP SCH (11:55)
[2018-11-25] MEDS: FERROUS SO4 325 MG TABLET (FP) PO SCH ×2 (11:55→23:40)
[2018-11-25] MEDS: ALBUTEROL SO4 0.083% IH SOL 2.5 MG/3 ML VIAL.NEB. NEB PRN ×2 (12:04→22:46)
--- NOTE | 2018-11-25 15:20 | PN ---
Progress Note (short form) - Note Progress Note: SUBJECTIVE: Declines further medical interview. OBJECTIVE: Afebrile, Hemodynamically Stable. Declines physical exam Current Medications Generic Name Dose Route Start Last Admin Trade Name Freq PRN Reason Stop Dose Admin Acetaminophen 650 mg 11/20/18 19:20 11/22/18 09:23 Tylenol - PO 650 mg Q6H PRN Administration PAIN Albuterol Sulfate 2 puff 11/20/18 13:36 11/24/18 03:44 Ventolin Hfa Inhaler - IH 2 puff Q4H PRN Administration SHORT OF BREATH/WHEEZING Albuterol Sulfate 1 amp 11/21/18 15:38 11/25/18 12:04 Ventolin 0.083% Nebulizer Soln - NEB 1 amp Q4H PRN Administration SHORT OF BREATH/WHEEZING Arformoterol Tartrate 1 amp 11/21/18 20:00 11/25/18 08:49 Brovana (Restricted To Pulmonology/Resp) - NEB 1 amp RBID JALYN Administration Bacitracin 1 applic 11/20/18 19:30 11/25/18 11:55 Bacitracin - TP 1 applic DAILY JALYN Administration Docusate Sodium 100 mg 11/23/18 22:00 11/25/18 11:53 Colace - PO Not Given BID JALYN Enoxaparin Sodium 40 mg 11/21/18 10:00 11/25/18 11:54 Lovenox - SQ Not Given DAILY JALYN Ferrous Sulfate 325 mg 11/23/18 22:00 11/25/18 11:55 Feosol - PO Not Given BID JALYN Furosemide 20 mg 11/21/18 10:00 11/25/18 11:54 Lasix - PO Not Given DAILY JALYN Piperacillin Sod/Tazobactam 50 mls @ 100 mls/hr 11/20/18 14:30 11/25/18 11:59 Sod 3.375 gm/ Dextrose IVPB 100 mls/hr Q8H-IV JALYN Administration Protocol Vancomycin HCl 1,500 mg/ 500 mls @ 250 mls/hr 11/23/18 10:15 11/25/18 11:39 Dextrose IVPB 250 mls/hr Q24H JALYN Administration Protocol Isosorbide Mononitrate 60 mg 11/22/18 08:23 11/24/18 21:34 Imdur - PO 60 mg HS JALYN Administration Montelukast Sodium 10 mg 11/20/18 22:18 11/24/18 21:34 Singulair - PO 10 mg HS JALYN Administration Prednisone 20 mg 11/20/18 22:30 11/25/18 11:53 Deltasone - PO 20 mg DAILY JALYN Administration Tiotropium [place] 2 puff 11/21/18 15:45 11/25/18 11:54 Spiriva Respimat IH 2 puff DAILY JALYN Administration Home Medications Medication Instructions Recorded Furosemide [Lasix -] 20 mg PO DAILY 03/09/17 Prednisone 20 mg PO ASDIR 03/09/17 Albuterol Sulfate [Proair Hfa] 2 puff IH Q4H PRN 07/20/18 Isosorbide Mononitrate [Isosorbide 30 mg PO HS 07/20/18 Mononitrate ER] Montelukast Na [Singulair -] 10 mg PO DAILY 07/20/18 Doxycycline Hyclate 100 mg PO BID 11/20/18 ASSESSMENT AND PLAN: 62 year old male with history of Chronic Respiratory Failure sec to COPD (on 2L O2 via [place]), Chronic Diastolic CHF, HTN, GAY, Bilateral LE Lymphedema, presents with R forearm erythema/pain/tenderness after possibly sustaining an insect bite 3 days prior to admission. 1. Acute RUE Cellulitis Afebrile, Hemodynamically Stable. Vanco added to Zosyn by ID 11/23 CT RUE requested as per ID - patient declines as he is unable to lay flat in CT Scan. Elbow Xray - soft tissue calcification, ?FB ?Air medial inferior soft tissues. Orthopedics evaluated - no intervention indicated Further management as per ID. 2. Chronic Respiratory Failure secondary to COPD - Stable, no evidence of acute exacerbation CXR - no infiltrate. Steroid dependent - on Prednisone 20mg - continue. Bronchodlators PRN Continue Singulair. Pulm following - recommended CT Chest but patient declines as unable to lie flat for CT Scan. Hx GAY - non-compliant with BiPAP - refuses to use. Also declines referral for Pulmonary Rehab 3. HTN/Hx occluded RCA/MR - seen by Cardio - continue Imdur (dose increased to 60mg as per Cardio). Further medication optimization as per Cardio. 4. Chronic Diastolic CHF - no evidence of decompensation. Continue Lasix. Cardiology following. 5. Microscopic Hematuria - asymptomatic. For out-patient follow up/Urology referral. 6. Hx of Rectal Stricture (reported by patient), evaluated by GI, recommended for Colonoscopy. Procedure subsequently cancelled by GI. For out-patent GI follow up. 7. Microcytic Anemia, MCV 69 - Iron deficiency, Iron Sat 12, likely sec to chronic blood loss anemia. GI consulted for further work-up. started on FeSo4 supplementation. 8. Chronic Venous Stasis/LE varicosities - TEDs, Lasix. DVT Px - Lovenox SQ. Visit type - Emergency Visit Emergency Visit: Yes ED Registration Date: 11/20/18 Care time: The patient presented to the Emergency Department on the above date and was hospitalized for further evaluation of their emergent condition. - New Patient This patient is new to me today: No - Critical Care Critical Care patient: No - Discharge Referral Referred to [facility] Med P.C.: No
[2018-11-25] MEDS ORDERED: PT OWN MED DRAWER 7, Y5N ONE (17:25)
--- NOTE | 2018-11-25 17:38 | PN ---
Progress Note, Physician History of Present Illness: Pt states his Rt arm is feeling better. He is moving his arm around with less pain. Remains afebrile. Tolerating antibiotics. - Current Medication List Current Medications: Active Medications Acetaminophen (Tylenol -) 650 mg PO Q6H PRN PRN Reason: PAIN Last Admin: 11/22/18 09:23 Dose: 650 mg Albuterol Sulfate (Ventolin Hfa Inhaler -) 2 puff IH Q4H PRN PRN Reason: SHORT OF BREATH/WHEEZING Last Admin: 11/24/18 03:44 Dose: 2 puff Albuterol Sulfate (Ventolin 0.083% Nebulizer Soln -) 1 amp NEB Q4H PRN PRN Reason: SHORT OF BREATH/WHEEZING Last Admin: 11/25/18 12:04 Dose: 1 amp Arformoterol Tartrate (Brovana (Restricted To Pulmonology/Resp) -) 1 amp NEB RBID [facility] Last Admin: 11/25/18 08:49 Dose: 1 amp Bacitracin (Bacitracin -) 1 applic TP DAILY [facility] Last Admin: 11/25/18 11:55 Dose: 1 applic Docusate Sodium (Colace -) 100 mg PO BID [facility] Last Admin: 11/25/18 11:53 Dose: Not Given Enoxaparin Sodium (Lovenox -) 40 mg SQ DAILY [facility] Last Admin: 11/25/18 11:54 Dose: Not Given Ferrous Sulfate (Feosol -) 325 mg PO BID [facility] Last Admin: 11/25/18 11:55 Dose: Not Given Furosemide (Lasix -) 20 mg PO DAILY [facility] Last Admin: 11/25/18 11:54 Dose: Not Given Piperacillin Sod/Tazobactam (Sod 3.375 gm/ Dextrose) 50 mls @ 100 mls/hr IVPB Q8H-IV JALYN; Protocol Last Admin: 11/25/18 11:59 Dose: 100 mls/hr Vancomycin HCl 1,500 mg/ (Dextrose) 500 mls @ 250 mls/hr IVPB Q24H JALYN; Protocol Last Admin: 11/25/18 11:39 Dose: 250 mls/hr Isosorbide Mononitrate (Imdur -) 60 mg PO HS [facility] Last Admin: 11/24/18 21:34 Dose: 60 mg Montelukast Sodium (Singulair -) 10 mg PO HS [facility] Last Admin: 11/24/18 21:34 Dose: 10 mg Prednisone (Deltasone -) 20 mg PO DAILY [facility] Last Admin: 11/25/18 11:53 Dose: 20 mg Tiotropium [place] (Spiriva Respimat) 2 puff IH DAILY [facility] Last Admin: 11/25/18 11:54 Dose: 2 puff - Objective Vital Signs: Vital Signs Temperature 98.4 F 11/25/18 15:48 Pulse Rate 86 11/25/18 15:48 Respiratory Rate 18 11/25/18 15:48 Blood Pressure 126/78 11/25/18 15:48 O2 Sat by Pulse Oximetry (%) 94 L 11/25/18 10:56 Constitutional: Yes: No Distress, Calm Cardiovascular: Yes: Regular Rate and Rhythm Respiratory: Yes: Regular Gastrointestinal: Yes: Normal Bowel Sounds, Soft, Abdomen, Obese Extremities: Yes: Erythema (Rt forearm erythema/induration/warmth - slightly improved, less pain) Neurological: Yes: Alert, Oriented Labs: CBC, BMP 11/24/18 07:30 11/24/18 07:30 Problem List - Problems (1) Cellulitis Code(s): L03.90 - CELLULITIS, UNSPECIFIED (2) Chronic respiratory failure with hypoxia and hypercapnia Code(s): J96.11 - CHRONIC RESPIRATORY FAILURE WITH HYPOXIA; J96.12 - CHRONIC RESPIRATORY FAILURE WITH HYPERCAPNIA (3) Constipation Code(s): K59.00 - CONSTIPATION, UNSPECIFIED (4) Pulmonary HTN Code(s): I27.20 - PULMONARY HYPERTENSION, UNSPECIFIED (5) Sleep apnea Code(s): G47.30 - SLEEP APNEA, UNSPECIFIED (6) COPD (chronic obstructive pulmonary disease) Code(s): J44.9 - CHRONIC OBSTRUCTIVE PULMONARY DISEASE, UNSPECIFIED (7) Diabetes mellitus Code(s): E11.9 - TYPE 2 DIABETES MELLITUS WITHOUT COMPLICATIONS (8) Lymph edema Code(s): I89.0 - LYMPHEDEMA, NOT ELSEWHERE CLASSIFIED (9) 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 attack Code(s): F06.4 - ANXIETY DISORDER DUE TO KNOWN PHYSIOLOGICAL CONDITION; F41.0 - PANIC DISORDER [EPISODIC PAROXYSMAL ANXIETY] (10) CAD (coronary artery disease) Code(s): I25.10 - ATHSCL HEART DISEASE OF [place] CORONARY ARTERY W/O ANG PCTRS (11) Morbid obesity Code(s): E66.01 - MORBID (SEVERE) OBESITY DUE TO EXCESS CALORIES Assessment/Plan RUE cellulitis morbid obesity chronic respiratory failure GAY CHF HTN -- continue Zosyn, Vancomycin -- check Vancomycin Trough prior to tomorrow's dose ordered -- can not entirely r/o abscess, pt refusing CT -- Orthopedics evaluation appreciated -- continue monitor vitals, pt is afebrile/stable at this time -- showing some clinical improvement
[2018-11-25] MEDS: MONTELUKAST NA 10 MG TABLET PO SCH (23:10)
[2018-11-25] MEDS: ISOSORBIDE MONONITRATE 30 MG TAB.SR.24H (FP) PO SCH (23:10)
[2018-11-26] MEDS ORDERED: PIPERACILLIN/TAZOBACTAM 3.375 GM VIAL IVPB ONE ×3 (02:35→19:22)
[2018-11-26] MEDS ORDERED: DEXTROSE 5%-WATER - 50 ML IVPB ONE ×3 (02:36→19:22)
[2018-11-26] MEDS: PIPERACILLIN/TAZOB 3.375 GM 3.375 GM in DEXTROSE 5%-WATER - 50 ML IVPB SCH ×4 (02:41→20:01)
[2018-11-26] MEDS: ARFORMOTEROL TARTRATE 15 MCG/2 ML VIAL NEB SCH ×2 (07:35→20:20)
[2018-11-26 08:03] LABS: BASO % 0.6 % (0-2.0); EOS % 2.3 % (0-4.5); HEMATOCRIT 39.7 % (35.4-49); HEMOGLOBIN 12.4 GM/dL (11.7-16.9); LYMPH % 14.2 % (8-40); MCH 21.9 pg (25.7-33.7); MCHC 31.2 g/dl (32.0-35.9); MEAN CELL VOLUME 70.3 fl (80-96); MEAN PLT VOLUME 8.1 fl (7.5-11.1); MONO % 11.3 % (3.8-10.2); NEUT % 71.6 % (42.8-82.8); PLATELET COUNT 200 K/MM3 (134-434); RBC 5.65 M/mm3 (4.00-5.60); RDW 15.7 % (11.9-15.9); WHITE BLOOD COUNT 8.1 K/mm3 (4.0-10.0)
[2018-11-26 08:26] LABS: ALBUMIN 3.3 g/dl (3.4-5.0); BILIRUBIN,TOTAL 0.5 mg/dL (0.2-1); BLOOD UREA NITROGEN 15.8 mg/dL (7-18); CALCIUM 8.9 mg/dL (8.5-10.1); CREATININE 0.9 mg/dL (0.55-1.3); POTASSIUM 4.6 mmol/L (3.5-5.1)
[2018-11-26] MEDS: predniSONE 10 MG TABLET (UD) PO SCH (10:24)
[2018-11-26] MEDS: FUROSEMIDE 20 MG TABLET (FP) PO SCH (10:28)
[2018-11-26] MEDS: ENOXAPARIN NA (PORCINE) 40 MG/0.4 ML DISP.SYRIN SQ SCH (10:28)
[2018-11-26] MEDS: DOCUSATE SODIUM 100 MG CAPSULE (FP) PO SCH ×2 (10:29→23:14)
[2018-11-26] MEDS: FERROUS SO4 325 MG TABLET (FP) PO SCH ×2 (10:30→23:14)
[2018-11-26] MEDS: TIOTROPIUM BROMIDE 2.5 MCG (SPIRIVA) RESPIMAT INHALER IH SCH (10:32)
[2018-11-26] MEDS: BACITRACIN 15 GM TUBE TOPICAL OINTMENT TP SCH (10:33)
[2018-11-26 11:31] LABS: ANISOCYTOSIS 1+; MACROCYTOSIS 0; PLATELET ESTIMATE NORMAL
--- NOTE | 2018-11-26 11:52 | PN ---
Progress Note (short form) - Note Progress Note: The patient is a 62-year-old gentleman with known case of coronary artery disease; angina pectoris; history of PHYSICAL THERAPIST AIDE of the right coronary artery; hypercholesterolemia; advanced COPD, oxygen dependent; severe obstructive sleep apnea syndrome; history of aortic valvular disease; mitral regurgitation; chronic lower extremity venous disease. Patient was recently treated with prolonged antibiotic therapy for osteomyelitis of the right big toe. Cellulitis of the right arms appears to be improving, continues to have chronic dyspnea with minimal exertion. No recurrence of chest pain or chest discomfort. Tolerating medications. Active Medications Acetaminophen (Tylenol -) 650 mg PO Q6H PRN PRN Reason: PAIN Last Admin: 11/22/18 09:23 Dose: 650 mg Albuterol Sulfate (Ventolin Hfa Inhaler -) 2 puff IH Q4H PRN PRN Reason: SHORT OF BREATH/WHEEZING Last Admin: 11/24/18 03:44 Dose: 2 puff Albuterol Sulfate (Ventolin 0.083% Nebulizer Soln -) 1 amp NEB Q4H PRN PRN Reason: SHORT OF BREATH/WHEEZING Last Admin: 11/25/18 22:46 Dose: 1 amp Arformoterol Tartrate (Brovana (Restricted To Pulmonology/Resp) -) 1 amp NEB RBID ON LICENSE OF [facility] Last Admin: 11/26/18 07:35 Dose: 1 amp Bacitracin (Bacitracin -) 1 applic TP DAILY ON LICENSE OF [facility] Last Admin: 11/26/18 10:33 Dose: 1 applic Docusate Sodium (Colace -) 100 mg PO BID ON LICENSE OF [facility] Last Admin: 11/26/18 10:29 Dose: Not Given Enoxaparin Sodium (Lovenox -) 40 mg SQ DAILY ON LICENSE OF [facility] Last Admin: 11/26/18 10:28 Dose: Not Given Ferrous Sulfate (Feosol -) 325 mg PO BID ON LICENSE OF [facility] Last Admin: 11/26/18 10:30 Dose: Not Given Furosemide (Lasix -) 20 mg PO DAILY ON LICENSE OF [facility] Last Admin: 11/26/18 10:28 Dose: Not Given Piperacillin Sod/Tazobactam (Sod 3.375 gm/ Dextrose) 50 mls @ 100 mls/hr IVPB Q8H-IV [facility]; Protocol Last Admin: 11/26/18 10:25 Dose: 100 mls/hr Vancomycin HCl 1,500 mg/ (Dextrose) 500 mls @ 250 mls/hr IVPB Q24H ON LICENSE OF [facility]; Protocol Last Admin: 11/25/18 11:39 Dose: 250 mls/hr Isosorbide Mononitrate (Imdur -) 60 mg PO [facility] Last Admin: 11/25/18 23:10 Dose: 60 mg Montelukast Sodium (Singulair -) 10 mg PO [facility] Last Admin: 11/25/18 23:10 Dose: 10 mg Prednisone (Deltasone -) 20 mg PO DAILY ON LICENSE OF [facility] Last Admin: 11/26/18 10:24 Dose: 20 mg Tiotropium [place] (Spiriva Respimat) 2 puff IH DAILY ON LICENSE OF [facility] Last Admin: 11/26/18 10:32 Dose: 2 puff REVIEW OF SYSTEMS: Constitutional: No history of chills, fever, or night sweats. No history of unintentional weight loss. HEENT: Denies having history of headaches, diplopia, blurred vision. Denies having hoarseness or epistaxis. No history of tinnitus or deafness. Respiratory: Patient recently developed a progressive cough accompanied by yellowish-greenish expectoration and is under treatment for bronchitis. There is no history of hemoptysis. Denies having tuberculosis. See history of present illness. Cardiovascular: See history of present illness. Gastrointestinal: History of chronic constipation which apparently became more pronounced when on Ranexa. No history of nausea, vomiting, melena, or hematemesis. States that he has developed an abdominal hernia. Genitourinary: Denies having dysuria, frequency, urgency, hematuria, or nocturia. Musculoskeletal: Complains of occasional arthritic pain involving the left ankle. Endocrine: No history of intolerance to cold or warm weather. No history of polyuria or polydipsia. No history of increased thirst. No known history of endocrine disorder. Neurological: History of post-tussive syncope. States that he had an episode of transient motor function involving the left upper arm associated with paresthesias, lasting approximately 2 minutes while he was leaning on his left elbow. There is no history of dizziness, seizures. Hematological/Lymphatics: ? history of thalassemia minor. No history of bleeding, anemia. PHYSICAL EXAMINATION: General: 62-year-old, morbidly obese male was in no acute distress. No cyanosis , pallor, clubbing, or jaundice. Last Vital Signs Temp Pulse Resp BP Pulse Ox 97.5 F L 70 18 120/73 95 11/26/18 05:43 11/26/18 05:43 11/26/18 05:43 11/26/18 05:43 11/25/18 21:00 Neck: Supple, slightly positive hepatojugular reflux. No JVD. Carotids were 2 +. Upstrokes were normal. No bruits were heard. Heart: PMI was not localized. Slight left parasternal and substernal heave. Grade III/ decrescendo systolic murmur was heard along the left sternal border and apex, that radiated towards the left axilla. A grade II/ ejection systolic murmur was heard at the second right intercostal space and left sternal border. Murmur ended in [id number] systole. No diastolic murmur or gallops were heard. Lungs: Bilateral scattered crepitations and wheezing. There were decreased breath sounds at both bases. Chest: Slight increased AP diameter. Expansion grossly appeared symmetrical. Abdomen: Morbidly obese, soft, and nontender. No hepatosplenomegaly or palpable masses were felt. There was a small, reducible umbilical hernia, a possible small hypogastric hernia. Extremities: Compression stocking on the left lower extremity. Patient does not want it removed. The right foot has been bandaged. Left lower extremity has brawny edema. The right dorsalis pedis, posterior tibial pulses could not be palpated. No calf tenderness was elicited. Right upper extremity including the elbow is swollen, remains mild to moderately hyperemic. CBC, BMP 11/26/18 06:50 11/26/18 06:50 IMPRESSION: 1. Coronary artery disease, history of PHYSICAL THERAPIST AIDE (coronary total occlusion) of the right coronary artery, angina pectoris with recent recurrence. 2. Advanced oxygen-dependent chronic obstructive pulmonary disease. 3. Hypertension, hypertensive cardiovascular disease. 4. Systolic murmur compatible with mitral regurgitation. 5. Aortic valvular disease, most likely aortic sclerosis; stenosis needs to be excluded. 6. History of recent episode of acute bronchitis. 7. Cellulitis of the right upper extremity (swelling, hyperemia, and tenderness ). 8. History of non-healing ulcer involving the right big toe. 9. Congestive heart failure; cor pulmonale needs to be excluded. 10. Obstructive sleep apnea syndrome. 11. Morbid obesity. 12. Bilateral lower extremity varicose veins and chronic stasis changes. 13. Pulmonary hypertension. RECOMMENDATIONS: 1. Continue medications as outlined. 2. If chest pains were to occur titrate Imdur to a maximum of 120mg PO daily. 3. Risk modifications. PROGNOSIS: Guarded. RAVI PEREZ M.D.
[2018-11-26] MEDS ORDERED: PT OWN MED DRAWER 7, Y5N ONE (11:57)
[2018-11-26] MEDS: VANCOMYCIN HCL 1,500 MG in DEXTROSE 5%-WATER - 500 ML IVPB SCH (12:38)
--- NOTE | 2018-11-26 13:02 | PN ---
Progress Note, Physician History of Present Illness: patient still with swelling of the arm still with induration around the elbow xray noted cannot r/o abscess - Current Medication List Current Medications: Active Medications Acetaminophen (Tylenol -) 650 mg PO Q6H PRN PRN Reason: PAIN Last Admin: 11/22/18 09:23 Dose: 650 mg Albuterol Sulfate (Ventolin Hfa Inhaler -) 2 puff IH Q4H PRN PRN Reason: SHORT OF BREATH/WHEEZING Last Admin: 11/24/18 03:44 Dose: 2 puff Albuterol Sulfate (Ventolin 0.083% Nebulizer Soln -) 1 amp NEB Q4H PRN PRN Reason: SHORT OF BREATH/WHEEZING Last Admin: 11/25/18 22:46 Dose: 1 amp Arformoterol Tartrate (Brovana (Restricted To Pulmonology/Resp) -) 1 amp NEB RBID [facility] Last Admin: 11/26/18 07:35 Dose: 1 amp Bacitracin (Bacitracin -) 1 applic TP DAILY [facility] Last Admin: 11/26/18 10:33 Dose: 1 applic Docusate Sodium (Colace -) 100 mg PO BID [facility] Last Admin: 11/26/18 10:29 Dose: Not Given Enoxaparin Sodium (Lovenox -) 40 mg SQ DAILY [facility] Last Admin: 11/26/18 10:28 Dose: Not Given Ferrous Sulfate (Feosol -) 325 mg PO BID [facility] Last Admin: 11/26/18 10:30 Dose: Not Given Furosemide (Lasix -) 20 mg PO DAILY [facility] Last Admin: 11/26/18 10:28 Dose: Not Given Piperacillin Sod/Tazobactam (Sod 3.375 gm/ Dextrose) 50 mls @ 100 mls/hr IVPB Q8H-IV [facility]; Protocol Last Admin: 11/26/18 10:25 Dose: 100 mls/hr Isosorbide Mononitrate (Imdur -) 60 mg PO HS [facility] Last Admin: 11/25/18 23:10 Dose: 60 mg Montelukast Sodium (Singulair -) 10 mg PO HS [facility] Last Admin: 11/25/18 23:10 Dose: 10 mg Prednisone (Deltasone -) 20 mg PO DAILY [facility] Last Admin: 11/26/18 10:24 Dose: 20 mg Tiotropium [place] (Spiriva Respimat) 2 puff IH DAILY [facility] Last Admin: 11/26/18 10:32 Dose: 2 puff - Objective Vital Signs: Vital Signs Temperature 97.5 F L 11/26/18 05:43 Pulse Rate 80 11/26/18 09:00 Respiratory Rate 18 11/26/18 09:00 Blood Pressure 106/64 11/26/18 09:00 O2 Sat by Pulse Oximetry (%) 95 11/25/18 21:00 Constitutional: Yes: Calm, Mild Distress, Obese Cardiovascular: Yes: S1, S2 Respiratory: Yes: Regular, CTA Bilaterally Gastrointestinal: Yes: Normal Bowel Sounds, Soft Musculoskeletal: Yes: WNL Extremities: Yes: WNL Neurological: Yes: Alert, Oriented Psychiatric: Yes: Alert, Oriented Labs: CBC, BMP 11/26/18 06:50 11/26/18 06:50 Assessment/Plan Problem List - Problem (1) Cellulitis Code(s): L03.90 - CELLULITIS, UNSPECIFIED (2) COPD (chronic obstructive pulmonary disease) Code(s): J44.9 - CHRONIC OBSTRUCTIVE PULMONARY DISEASE, UNSPECIFIED htn constipation plan trough noted' increased vanco dose rest as per team'
--- NOTE | 2018-11-26 13:09 | PN ---
Progress Note, Physician History of Present Illness: pulmonary alert,comfortable,dyspnea improving. rue less swollen,less tender - Current Medication List Current Medications: Active Medications Acetaminophen (Tylenol -) 650 mg PO Q6H PRN PRN Reason: PAIN Last Admin: 11/22/18 09:23 Dose: 650 mg Albuterol Sulfate (Ventolin Hfa Inhaler -) 2 puff IH Q4H PRN PRN Reason: SHORT OF BREATH/WHEEZING Last Admin: 11/24/18 03:44 Dose: 2 puff Albuterol Sulfate (Ventolin 0.083% Nebulizer Soln -) 1 amp NEB Q4H PRN PRN Reason: SHORT OF BREATH/WHEEZING Last Admin: 11/25/18 22:46 Dose: 1 amp Arformoterol Tartrate (Brovana (Restricted To Pulmonology/Resp) -) 1 amp NEB RBID [facility] Last Admin: 11/26/18 07:35 Dose: 1 amp Bacitracin (Bacitracin -) 1 applic TP DAILY [facility] Last Admin: 11/26/18 10:33 Dose: 1 applic Docusate Sodium (Colace -) 100 mg PO BID [facility] Last Admin: 11/26/18 10:29 Dose: Not Given Enoxaparin Sodium (Lovenox -) 40 mg SQ DAILY [facility] Last Admin: 11/26/18 10:28 Dose: Not Given Ferrous Sulfate (Feosol -) 325 mg PO BID [facility] Last Admin: 11/26/18 10:30 Dose: Not Given Furosemide (Lasix -) 20 mg PO DAILY [facility] Last Admin: 11/26/18 10:28 Dose: Not Given Piperacillin Sod/Tazobactam (Sod 3.375 gm/ Dextrose) 50 mls @ 100 mls/hr IVPB Q8H-IV [facility]; Protocol Last Admin: 11/26/18 10:25 Dose: 100 mls/hr Vancomycin HCl 1,500 mg/ (Dextrose) 500 mls @ 250 mls/hr IVPB BID@0000,1200 [facility] ; Protocol Isosorbide Mononitrate (Imdur -) 60 mg PO HS [facility] Last Admin: 11/25/18 23:10 Dose: 60 mg Montelukast Sodium (Singulair -) 10 mg PO HS [facility] Last Admin: 11/25/18 23:10 Dose: 10 mg Prednisone (Deltasone -) 20 mg PO DAILY [facility] Last Admin: 11/26/18 10:24 Dose: 20 mg Tiotropium [place] (Spiriva Respimat) 2 puff IH DAILY [facility] Last Admin: 11/26/18 10:32 Dose: 2 puff - Objective Vital Signs: Vital Signs Temperature 97.5 F L 11/26/18 05:43 Pulse Rate 80 11/26/18 09:00 Respiratory Rate 18 11/26/18 09:00 Blood Pressure 106/64 11/26/18 09:00 O2 Sat by Pulse Oximetry (%) 95 11/25/18 21:00 Constitutional: Yes: Well Nourished, Calm, Obese Eyes: Yes: WNL HENT: Yes: WNL Neck: Yes: WNL Cardiovascular: Yes: Regular Rate and Rhythm, S1, S2 Respiratory: Yes: Diminished Gastrointestinal: Yes: Normal Bowel Sounds, Soft Extremities: Yes: Erythema (less erythema rue), Other (less swelling rue) Edema: Yes Labs: CBC, BMP 11/26/18 06:50 11/26/18 06:50 Problem List - Problems (1) Sleep apnea Code(s): G47.30 - SLEEP APNEA, UNSPECIFIED (2) Cellulitis Code(s): L03.90 - CELLULITIS, UNSPECIFIED (3) COPD (chronic obstructive pulmonary disease) Code(s): J44.9 - CHRONIC OBSTRUCTIVE PULMONARY DISEASE, UNSPECIFIED (4) Idiopathic chronic venous hypertension of both lower extremities with ulcer and inflammation Code(s): I87.333 - CHRONIC VENOUS HTN W ULCER AND INFLAM OF BILATERAL LOW EXTRM ; L97.919 - NON-PRS CHRONIC ULC UNSP PRT OF R LOW LEG W UNSP SEVERITY; L97.929 - NON-PRS CHRONIC ULC UNSP PRT OF L LOW LEG W UNSP SEVERITY (5) Lymph edema Code(s): I89.0 - LYMPHEDEMA, NOT ELSEWHERE CLASSIFIED (6) Venous insufficiency of both lower extremities Code(s): I87.2 - VENOUS INSUFFICIENCY (CHRONIC) (PERIPHERAL) (7) CAD (coronary artery disease) Code(s): I25.10 - ATHSCL HEART DISEASE OF [place] CORONARY ARTERY W/O ANG PCTRS (8) Morbid obesity Code(s): E66.01 - MORBID (SEVERE) OBESITY DUE TO EXCESS CALORIES (9) Pulmonary HTN Code(s): I27.20 - PULMONARY HYPERTENSION, UNSPECIFIED (10) Cellulitis Code(s): L03.90 - CELLULITIS, UNSPECIFIED (11) Chronic respiratory failure with hypoxia and hypercapnia Code(s): J96.11 - CHRONIC RESPIRATORY FAILURE WITH HYPOXIA; J96.12 - CHRONIC RESPIRATORY FAILURE WITH HYPERCAPNIA Assessment/Plan IMP ADVANCED COPD O2 DEPENDENT WITH CHRONIC HYPOXEMIC/HYPERCAPNEIC RESPIRATORY FAILURE CLINICALLY IMPROVING PULMONARY HTN SEVERE OSAS NOT COMPLIANT WITH CPAP ASHD CELLULITIS IMPROVING MORBID OBESITY PLAN INHALED BRONCHODILATORS O2 BIPAP AT NIGHT PT REFUSES ABX PER ID PT IS A HIGH RISK FOR INTRA AND POST-OP PULMONARY COMPLICATION SECONDARY SEVERE COPD,PULMONARY HTN,ASHD,CHF. DR MCPHERSON Problem List - Problems (1) Sleep apnea Code(s): G47.30 - SLEEP APNEA, UNSPECIFIED (2) Cellulitis Code(s): L03.90 - CELLULITIS, UNSPECIFIED (3) COPD (chronic obstructive pulmonary disease) Code(s): J44.9 - CHRONIC OBSTRUCTIVE PULMONARY DISEASE, UNSPECIFIED (4) Idiopathic chronic venous hypertension of both lower extremities with ulcer and inflammation Code(s): I87.333 - CHRONIC VENOUS HTN W ULCER AND INFLAM OF BILATERAL LOW EXTRM ; L97.919 - NON-PRS CHRONIC ULC UNSP PRT OF R LOW LEG W UNSP SEVERITY; L97.929 - NON-PRS CHRONIC ULC UNSP PRT OF L LOW LEG W UNSP SEVERITY (5) Lymph edema Code(s): I89.0 - LYMPHEDEMA, NOT ELSEWHERE CLASSIFIED (6) Venous insufficiency of both lower extremities Code(s): I87.2 - VENOUS INSUFFICIENCY (CHRONIC) (PERIPHERAL) (7) CAD (coronary artery disease) Code(s): I25.10 - ATHSCL HEART DISEASE OF [place] CORONARY ARTERY W/O ANG PCTRS (8) Morbid obesity Code(s): E66.01 - MORBID (SEVERE) OBESITY DUE TO EXCESS CALORIES (9) Pulmonary HTN Code(s): I27.20 - PULMONARY HYPERTENSION, UNSPECIFIED (10) Cellulitis Code(s): L03.90 - CELLULITIS, UNSPECIFIED (11) Chronic respiratory failure with hypoxia and hypercapnia Code(s): J96.11 - CHRONIC RESPIRATORY FAILURE WITH HYPOXIA; J96.12 - CHRONIC RESPIRATORY FAILURE WITH HYPERCAPNIA
--- NOTE | 2018-11-26 13:35 | PN ---
Teaching Attending Note Name of Resident: Claus Damon ATTENDING PHYSICIAN STATEMENT I saw and evaluated the patient. I reviewed the resident's note and discussed the case with the resident. I agree with the resident's findings and plan as documented. SUBJECTIVE: Declines further medical interview. OBJECTIVE: Afebrile, Hemodynamically Stable. Declines physical exam Last Vital Signs Temp Pulse Resp BP Pulse Ox 97.5 F L 80 18 106/64 95 11/26/18 05:43 11/26/18 09:00 11/26/18 09:00 11/26/18 09:00 11/25/18 21:00 Laboratory Results - last 24 hr 11/26/18 11/26/18 11/26/18 06:50 06:50 09:40 WBC 8.1 RBC 5.65 H Hgb 12.4 Hct 39.7 MCV 70.3 L MCH 21.9 L MCHC 31.2 L RDW 15.7 Plt Count 200 MPV 8.1 Absolute Neuts (auto) 5.8 Neutrophils % 71.6 Lymphocytes % 14.2 Monocytes % 11.3 H Eosinophils % 2.3 Basophils % 0.6 Nucleated RBC % 0 Hypochromia 1+ Platelet Estimate Normal Polychromasia 0 Poikilocytosis 0 Anisocytosis 1+ Microcytosis 1+ Macrocytosis 0 Sodium 137 Potassium 4.6 Chloride 96 L Carbon Dioxide 38 H Anion Gap 3 L BUN 15.8 Creatinine 0.9 Est GFR (CKD-EPI)AfAm 107.22 Est GFR (CKD-EPI)NonAf 92.51 Random Glucose 71 L Calcium 8.9 Total Bilirubin 0.5 AST 24 ALT 31 Alkaline Phosphatase 82 Total Protein 7.0 Albumin 3.3 L Vancomycin Pre-Dose 5.5 L Current Medications Generic Name Dose Route Start Last Admin Trade Name Freq PRN Reason Stop Dose Admin Acetaminophen 650 mg 11/20/18 19:20 11/22/18 09:23 Tylenol - PO 650 mg Q6H PRN Administration PAIN Albuterol Sulfate 2 puff 11/20/18 13:36 11/24/18 03:44 Ventolin Hfa Inhaler - IH 2 puff Q4H PRN Administration SHORT OF BREATH/WHEEZING Albuterol Sulfate 1 amp 11/21/18 15:38 11/25/18 22:46 Ventolin 0.083% Nebulizer Soln - NEB 1 amp Q4H PRN Administration SHORT OF BREATH/WHEEZING Arformoterol Tartrate 1 amp 11/21/18 20:00 11/26/18 07:35 Brovana (Restricted To Pulmonology/Resp) - NEB 1 amp RBID [facility] Administration Bacitracin 1 applic 11/20/18 19:30 11/26/18 10:33 Bacitracin - TP 1 applic DAILY [facility] Administration Docusate Sodium 100 mg 11/23/18 22:00 11/26/18 10:29 Colace - PO Not Given BID [facility] Enoxaparin Sodium 40 mg 11/21/18 10:00 11/26/18 10:28 Lovenox - SQ Not Given DAILY [facility] Ferrous Sulfate 325 mg 11/23/18 22:00 11/26/18 10:30 Feosol - PO Not Given BID [facility] Furosemide 20 mg 11/21/18 10:00 11/26/18 10:28 Lasix - PO Not Given DAILY [facility] Piperacillin Sod/Tazobactam 50 mls @ 100 mls/hr 11/20/18 14:30 11/26/18 10:25 Sod 3.375 gm/ Dextrose IVPB 100 mls/hr Q8H-IV [facility] Administration Protocol Vancomycin HCl 1,500 mg/ 500 mls @ 250 mls/hr 11/27/18 00:00 Dextrose IVPB BID@0000,1200 [facility] Protocol Isosorbide Mononitrate 60 mg 11/22/18 08:23 11/25/18 23:10 Imdur - PO 60 mg HS [facility] Administration Montelukast Sodium 10 mg 11/20/18 22:18 11/25/18 23:10 Singulair - PO 10 mg HS [facility] Administration Prednisone 20 mg 11/20/18 22:30 11/26/18 10:24 Deltasone - PO 20 mg DAILY [facility] Administration Tiotropium [place] 2 puff 11/21/18 15:45 11/26/18 10:32 Spiriva Respimat IH 2 puff DAILY [facility] Administration Home Medications Medication Instructions Recorded Furosemide [Lasix -] 20 mg PO DAILY 03/09/17 Prednisone 20 mg PO ASDIR 03/09/17 Albuterol Sulfate [Proair Hfa] 2 puff IH Q4H PRN 07/20/18 Isosorbide Mononitrate [Isosorbide 30 mg PO HS 07/20/18 Mononitrate ER] Montelukast Na [Singulair -] 10 mg PO DAILY 07/20/18 Doxycycline Hyclate 100 mg PO BID 11/20/18 ASSESSMENT AND PLAN: 62 year old male with history of Obesity, Chronic Respiratory Failure sec to COPD (on 2L O2 via NC), Chronic Diastolic CHF, Pulmonary HTN, MR, HTN, GAY, Bilateral LE Lymphedema, Hx osteomyelitis toe s/p 6 weeks Abx, presents with R forearm erythema/pain/tenderness after possibly sustaining an insect bite 3 days prior to admission. 1. Acute RUE Cellulitis Afebrile, Hemodynamically Stable. Vanco added to Zosyn by ID 11/23 - dose increased based on trough level. CT RUE requested as per ID - patient declines as he is unable to lay flat in CT Scan. Elbow Xray - soft tissue calcification, ?FB ?Air medial inferior soft tissues. Orthopedics evaluated - no intervention indicated Further management as per ID. 2. Chronic Respiratory Failure secondary to COPD - Stable, no evidence of acute exacerbation CXR - no infiltrate. Steroid dependent - on Prednisone 20mg - continue. Bronchodlators PRN Continue Singulair. Pulm following - recommended CT Chest but patient declines as unable to lie flat for CT Scan. Hx GAY - non-compliant with BiPAP - refuses to use. Also declines referral for Pulmonary Rehab 3. HTN/CAD with Hx occluded RCA/MR - seen by Cardio - continue Imdur (dose increased to 60mg as per Cardio). Further medication optimization as per Cardio. 4. Chronic Diastolic CHF - no evidence of decompensation. Continue Lasix. Cardiology following. 5. Microscopic Hematuria - asymptomatic. For out-patient follow up/Urology referral. 6. Hx of Rectal Stricture (reported by patient), evaluated by GI, recommended for Colonoscopy on 11/23. Procedure subsequently cancelled by GI. For out-patent GI follow up. 7. Microcytic Anemia, MCV 69 - Iron deficiency, Iron Sat 12, likely sec to chronic blood loss anemia. GI consulted for further work-up. started on FeSo4 supplementation. 8. Chronic Venous Stasis/LE varicosities - TEDs, Lasix. DVT Px - Lovenox SQ.
--- NOTE | 2018-11-26 14:27 | PN ---
Physical Exam: SUBJECTIVE: 62 y/o M w PMH COPD (on 2L home o2), chronic diastolic CHF, HTN, GAY , BL LE lymphedema whom presented to the ED w c/o forearm redness and pain and a second concern of SOB, LINDSEY 7. Today, the pt says his RIGHT arm feels better. There is less redness, swelling, and pain. SOB is back to his baseline. He denies fever, chills, and bleeding. Pt reports that he slept well for the first time in years. Pt presently reports no CP, no fever, no chills, and no NVFD. OBJECTIVE: Vital Signs Temp Pulse Resp BP Pulse Ox 97.5 F L 80 18 106/64 95 11/26/18 05:43 11/26/18 09:00 11/26/18 09:00 11/26/18 09:00 11/25/18 21:00 GENERAL: The patient is awake, alert, and fully oriented x3. Pt sitting at side of bed throughout exam, eating breakfast. Pt on nasal canula. HEAD: Normal with no signs of trauma EYES: TAMMIE, EOMI, sclera anicteric, conjunctiva clear. No ptosis. ENT: Ears normal, nares patent, moist mucous membranes. NECK: Trachea midline, full range of motion, supple. LUNGS: Lungs CTAB with wheezes at the left bases, no other adventitious sounds. HEART: Regular rate and rhythm, S1, S2 without murmur, rub or gallop. ABDOMEN: Obese, soft, nontender, nondistended, normoactive bowel sounds, no guarding, no rebound, no hepatosplenomegaly, no masses. EXTREMITIES: RIGHT posterior aspect with [id number] abrasion covered by bandage, surrounded by diffuse, non-demarcated errythema and edema, also warm + tender to palpation. Edema present in RIGHT hand. 2+ pulses, warm, well-perfused, BL LE edema. NEUROLOGICAL: Cranial nerves III through XII grossly intact. Normal speech, gait not observed. PSYCH: Calm in AM SKIN: Many tattoos. Warm, dry, normal turgor, no rashes or lesions noted Laboratory Results - last 24 hr 11/26/18 11/26/18 11/26/18 06:50 06:50 09:40 WBC 8.1 RBC 5.65 H Hgb 12.4 Hct 39.7 MCV 70.3 L MCH 21.9 L MCHC 31.2 L RDW 15.7 Plt Count 200 MPV 8.1 Absolute Neuts (auto) 5.8 Neutrophils % 71.6 Lymphocytes % 14.2 Monocytes % 11.3 H Eosinophils % 2.3 Basophils % 0.6 Nucleated RBC % 0 Hypochromia 1+ Platelet Estimate Normal Polychromasia 0 Poikilocytosis 0 Anisocytosis 1+ Microcytosis 1+ Macrocytosis 0 Sodium 137 Potassium 4.6 Chloride 96 L Carbon Dioxide 38 H Anion Gap 3 L BUN 15.8 Creatinine 0.9 Est GFR (CKD-EPI)AfAm 107.22 Est GFR (CKD-EPI)NonAf 92.51 Random Glucose 71 L Calcium 8.9 Total Bilirubin 0.5 AST 24 ALT 31 Alkaline Phosphatase 82 Total Protein 7.0 Albumin 3.3 L Vancomycin Pre-Dose 5.5 L Active Medications Acetaminophen (Tylenol -) 650 mg PO Q6H PRN PRN Reason: PAIN Last Admin: 11/22/18 09:23 Dose: 650 mg Albuterol Sulfate (Ventolin Hfa Inhaler -) 2 puff IH Q4H PRN PRN Reason: SHORT OF BREATH/WHEEZING Last Admin: 11/24/18 03:44 Dose: 2 puff Albuterol Sulfate (Ventolin 0.083% Nebulizer Soln -) 1 amp NEB Q4H PRN PRN Reason: SHORT OF BREATH/WHEEZING Last Admin: 11/25/18 22:46 Dose: 1 amp Arformoterol Tartrate (Brovana (Restricted To Pulmonology/Resp) -) 1 amp NEB RBID [facility] Last Admin: 11/26/18 07:35 Dose: 1 amp Bacitracin (Bacitracin -) 1 applic TP DAILY [facility] Last Admin: 11/26/18 10:33 Dose: 1 applic Docusate Sodium (Colace -) 100 mg PO BID [facility] Last Admin: 11/26/18 10:29 Dose: Not Given Enoxaparin Sodium (Lovenox -) 40 mg SQ DAILY [facility] Last Admin: 11/26/18 10:28 Dose: Not Given Ferrous Sulfate (Feosol -) 325 mg PO BID [facility] Last Admin: 11/26/18 10:30 Dose: Not Given Furosemide (Lasix -) 20 mg PO DAILY [facility] Last Admin: 11/26/18 10:28 Dose: Not Given Piperacillin Sod/Tazobactam (Sod 3.375 gm/ Dextrose) 50 mls @ 100 mls/hr IVPB Q8H-IV [facility]; Protocol Last Admin: 11/26/18 10:25 Dose: 100 mls/hr Vancomycin HCl 1,500 mg/ (Dextrose) 500 mls @ 250 mls/hr IVPB BID@0000,1200 [facility] ; Protocol Isosorbide Mononitrate (Imdur -) 60 mg PO HS [facility] Last Admin: 11/25/18 23:10 Dose: 60 mg Montelukast Sodium (Singulair -) 10 mg PO HS [facility] Last Admin: 11/25/18 23:10 Dose: 10 mg Prednisone (Deltasone -) 20 mg PO DAILY [facility] Last Admin: 11/26/18 10:24 Dose: 20 mg Tiotropium [place] (Spiriva Respimat) 2 puff IH DAILY [facility] Last Admin: 11/26/18 10:32 Dose: 2 puff ASSESSMENT/PLAN: 62 y/o M PMH chronic respiratory failure 2/2 COPD (on 2L home O2 via [place]), chronic diastolic CHF, HTN, GAY, BL LE lymphedema, presenting w RIGHT forearm erythema/pain/tenderness s/p trauma consistent with cellulitis. # Cellulitis - Improved clinical presentation - Afebrile and hemodynamically stable - Elbow Xray demonstrates soft tissue calcification, cannot r/o FB, air medial inferior soft tissues - Orthopedics evaluated - no intervention indicated - ID on board (Dr. Davenport) - Cannot r/o abscess per ID - Vanco trough low: 5.5 >> vanco increased to 1,500 mg # H/o rectal stricture - GI on board (Dr. Jerez) - Colonoscopy to be performed out-pt # Chronic respiratory failure 2/2 COPD - No evidence of acute exacerbation on phys. exam - NEG CXR - Cont. prednisone 20mg, singulair - Bronchodilators PRN - 2L o2 [place] - Pulm on board (Dr. Donohue) - Pt declines referral for pulmonary rehab # Chronic diastolic CHF - Not consistent w vol overload - No evidence of decompensation. - Cont. lasix. - Cont. Imdur (dose increased to 60mg as per cardio) - Cardiology on board (Dr. Restrepo) # GAY - Non-compliant with BiPAP - Refusing fitment in hospital #HTN - Cont. current regimen (imdur) # Microscopic hematuria - Asymptomatic - Refer to urology out-pt # Microcytic anemia - MCV 69 - Most likely 2/2 Fe deficiency - Pt refusing stool guiaic - Pt refusing Fe treatment - Additional f/u out-pt # Chronic Venous Stasis/LE varicosities - Compression stocking - Anna Damon MD Visit type - Emergency Visit Emergency Visit: No - New Patient This patient is new to me today: No - Critical Care Critical Care patient: No - Discharge Referral Referred to [facility] Med [facility] No ATTENDING PHYSICIAN STATEMENT I saw and evaluated the patient. I reviewed the resident's note and discussed the case with the resident. I agree with the resident's findings and plan as documented. SUBJECTIVE: OBJECTIVE: ASSESSMENT AND PLAN:
[2018-11-26] MEDS: ALBUTEROL SO4 0.083% IH SOL 2.5 MG/3 ML VIAL.NEB. NEB PRN (15:45)
[2018-11-26] MEDS: ISOSORBIDE MONONITRATE 30 MG TAB.SR.24H (FP) PO SCH (23:09)
[2018-11-26] MEDS: MONTELUKAST NA 10 MG TABLET PO SCH (23:09)
[2018-11-27] MEDS ORDERED: DEXTROSE 5%-WATER - 50 ML IVPB ONE ×3 (02:12→18:08)
[2018-11-27] MEDS ORDERED: PIPERACILLIN/TAZOBACTAM 3.375 GM VIAL IVPB ONE ×3 (02:12→18:07)
[2018-11-27] MEDS: PIPERACILLIN/TAZOB 3.375 GM 3.375 GM in DEXTROSE 5%-WATER - 50 ML IVPB SCH ×3 (02:42→18:18)
[2018-11-27] MEDS: VANCOMYCIN HCL 1,500 MG in DEXTROSE 5%-WATER - 500 ML IVPB SCH ×2 (03:27→13:41)
[2018-11-27] MEDS: ARFORMOTEROL TARTRATE 15 MCG/2 ML VIAL NEB SCH ×2 (08:00→21:00)
[2018-11-27 08:03] LABS: BASO % 0.7 % (0-2.0); EOS % 3.1 % (0-4.5); HEMATOCRIT 39.8 % (35.4-49); HEMOGLOBIN 12.6 GM/dL (11.7-16.9); MCH 22.2 pg (25.7-33.7); MCHC 31.6 g/dl (32.0-35.9); MEAN CELL VOLUME 70.2 fl (80-96); MEAN PLT VOLUME 8.3 fl (7.5-11.1); MONO % 7.5 % (3.8-10.2); NEUT % 73.7 % (42.8-82.8); PLATELET COUNT 210 K/MM3 (134-434); RBC 5.67 M/mm3 (4.00-5.60); RDW 15.6 % (11.9-15.9); WHITE BLOOD COUNT 7.8 K/mm3 (4.0-10.0)
[2018-11-27 08:24] LABS: ALBUMIN 3.3 g/dl (3.4-5.0); BILIRUBIN,TOTAL 0.6 mg/dL (0.2-1); BLOOD UREA NITROGEN 14.6 mg/dL (7-18); MAGNESIUM 2.1 mg/dL (1.8-2.4); PHOSPHOROUS 3.9 mg/dL (2.5-4.9); POTASSIUM 4.2 mmol/L (3.5-5.1)
[2018-11-27] MEDS: FUROSEMIDE 20 MG TABLET (FP) PO SCH (09:03)
[2018-11-27] MEDS: predniSONE 10 MG TABLET (UD) PO SCH (09:04)
[2018-11-27] MEDS: ENOXAPARIN NA (PORCINE) 40 MG/0.4 ML DISP.SYRIN SQ SCH (09:05)
[2018-11-27] MEDS: FERROUS SO4 325 MG TABLET (FP) PO SCH ×2 (09:06→23:51)
[2018-11-27] MEDS: DOCUSATE SODIUM 100 MG CAPSULE (FP) PO SCH ×2 (09:06→23:51)
[2018-11-27] MEDS: TIOTROPIUM BROMIDE 2.5 MCG (SPIRIVA) RESPIMAT INHALER IH SCH (10:28)
[2018-11-27] MEDS: BACITRACIN 15 GM TUBE TOPICAL OINTMENT TP SCH (10:28)
--- NOTE | 2018-11-27 13:13 | PN ---
Physical Exam: SUBJECTIVE: 62 y/o M w PMH COPD (on 2L home o2), chronic diastolic CHF, HTN, GAY , BL LE lymphedema whom presented to the ED w c/o forearm redness and pain and a second concern of SOB, LINDSEY 7. Today, the pt says his RIGHT arm feels better. There is less redness, swelling, and pain. SOB is back to his baseline. He denies fever, chills, and bleeding. Pt reports that he slept well for the first time in years. He is refusing lasix in AM bc it makes him urinate too frequently and would prefer to take diuretic at PM despite poss interuption to sleep. Pt also declining DVT prophylaxis despite extensive discussion, including education on risks and benefits of the choice to decline lasix and DVT ppx, including SCDs. Pt presently reports no CP, no fever, no chills, and no NVFD. OBJECTIVE: Vital Signs Period Temp Pulse Resp BP Sys/Santiago Pulse Ox Last 24 Hr 98.1 F-98.4 F 69-87 18-18 107-129/72-76 92-95 GENERAL: The patient is awake, alert, and fully oriented x3. Pt sitting at side of bed throughout exam, sitting upright, watching television. Pt on nasal canula. HEAD: Normal with no signs of trauma EYES: TAMMIE, EOMI, sclera anicteric, conjunctiva clear. No ptosis. ENT: Ears normal, nares patent, moist mucous membranes. NECK: Trachea midline, full range of motion, supple. LUNGS: Lungs CTAB with wheezes at the left bases, no other adventitious sounds. HEART: Regular rate and rhythm, S1, S2 without murmur, rub or gallop. ABDOMEN: Obese, soft, nontender, nondistended, normoactive bowel sounds, no guarding, no rebound, no hepatosplenomegaly, no masses. EXTREMITIES: RIGHT posterior aspect with [id number] abrasion/induration open to air , surrounded by diffuse, non-demarcated errythema and edema, also warm + tender to palpation. Edema present in RIGHT hand. 2+ pulses, warm, well-perfused, BL LE edema. NEUROLOGICAL: Cranial nerves III through XII grossly intact. Normal speech, gait not observed. PSYCH: Calm in AM SKIN: Many tattoos. Warm, dry, normal turgor, no rashes or lesions noted Laboratory Results - last 24 hr 11/27/18 11/27/18 07:07 07:07 WBC 7.8 RBC 5.67 H Hgb 12.6 Hct 39.8 MCV 70.2 L MCH 22.2 L MCHC 31.6 L RDW 15.6 Plt Count 210 MPV 8.3 Absolute Neuts (auto) 5.8 Neutrophils % 73.7 Lymphocytes % 15.0 Monocytes % 7.5 Eosinophils % 3.1 Basophils % 0.7 Nucleated RBC % 0 Sodium 138 Potassium 4.2 Chloride 97 L Carbon Dioxide 35 H Anion Gap 6 L BUN 14.6 Creatinine 1.0 Est GFR (CKD-EPI)AfAm 94.39 Est GFR (CKD-EPI)NonAf 81.44 Random Glucose 96 Calcium 9.0 Phosphorus 3.9 Magnesium 2.1 Total Bilirubin 0.6 AST 21 ALT 33 Alkaline Phosphatase 81 Total Protein 7.0 Albumin 3.3 L Active Medications Acetaminophen (Tylenol -) 650 mg PO Q6H PRN PRN Reason: PAIN Last Admin: 11/22/18 09:23 Dose: 650 mg Albuterol Sulfate (Ventolin Hfa Inhaler -) 2 puff IH Q4H PRN PRN Reason: SHORT OF BREATH/WHEEZING Last Admin: 11/24/18 03:44 Dose: 2 puff Albuterol Sulfate (Ventolin 0.083% Nebulizer Soln -) 1 amp NEB Q4H PRN PRN Reason: SHORT OF BREATH/WHEEZING Last Admin: 11/26/18 15:45 Dose: 1 amp Arformoterol Tartrate (Brovana (Restricted To Pulmonology/Resp) -) 1 amp NEB RBID [facility] Last Admin: 11/27/18 08:00 Dose: 1 amp Bacitracin (Bacitracin -) 1 applic TP DAILY [facility] Last Admin: 11/27/18 10:28 Dose: 1 applic Docusate Sodium (Colace -) 100 mg PO BID [facility] Last Admin: 11/27/18 09:06 Dose: Not Given Enoxaparin Sodium (Lovenox -) 40 mg SQ DAILY [facility] Last Admin: 11/27/18 09:05 Dose: Not Given Ferrous Sulfate (Feosol -) 325 mg PO BID [facility] Last Admin: 11/27/18 09:06 Dose: Not Given Furosemide (Lasix -) 20 mg PO DAILY [facility] Last Admin: 11/27/18 09:03 Dose: Not Given Piperacillin Sod/Tazobactam (Sod 3.375 gm/ Dextrose) 50 mls @ 100 mls/hr IVPB Q8H-IV [facility]; Protocol Last Admin: 11/27/18 09:02 Dose: 100 mls/hr Vancomycin HCl 1,500 mg/ (Dextrose) 500 mls @ 250 mls/hr IVPB BID@0000,1200 [facility] ; Protocol Last Admin: 11/27/18 03:27 Dose: 250 mls/hr Isosorbide Mononitrate (Imdur -) 60 mg PO HS [facility] Last Admin: 11/26/18 23:09 Dose: 60 mg Montelukast Sodium (Singulair -) 10 mg PO HS [facility] Last Admin: 11/26/18 23:09 Dose: 10 mg Prednisone (Deltasone -) 20 mg PO DAILY [facility] Last Admin: 11/27/18 09:04 Dose: 20 mg Tiotropium [place] (Spiriva Respimat) 2 puff IH DAILY [facility] Last Admin: 11/27/18 10:28 Dose: 2 puff ASSESSMENT/PLAN: 62 y/o F PMH chronic respiratory failure 2/2 COPD (on 2L home O2 via [place]), chronic diastolic CHF, HTN, GAY, BL LE lymphedema, presenting w RIGHT forearm erythema/pain/tenderness s/p trauma consistent with cellulitis. # RUE Cellulitis - Improved clinical presentation - Afebrile and hemodynamically stable - Elbow Xray demonstrates soft tissue calcification, cannot r/o FB, air medial inferior soft tissues - Orthopedics evaluated - no intervention indicated - ID on board (Dr. Davenport) poss abscess, rec surgical ref - Vanco increased to 1,500 mg. - Vanco trough in AM/4th dose at new dose # H/o rectal stricture - GI on board (Dr. Jeerz) - Colonoscopy to be performed out-pt # Chronic respiratory failure 2/2 COPD - No evidence of acute exacerbation on phys. exam - NEG CXR - Cont. prednisone 20mg, singulair - Bronchodilators PRN - 2L o2 [place] - Pulm on board (Dr. Dnoohue) - Pt declines referral for pulmonary rehab # Chronic diastolic CHF - Not consistent w vol overload - No evidence of decompensation. - Cont. lasix. - Cont. Imdur (dose increased to 60mg as per cardio) - Cardiology on board (Dr. Restrepo) # GAY - Non-compliant with BiPAP - Refusing fitment in hospital #HTN - Cont. current regimen (imdur) # Microscopic hematuria - Asymptomatic - Refer to urology out-pt # Microcytic anemia - MCV 69 - Most likely 2/2 Fe deficiency - Pt provided stool sample - Pt refusing Fe treatment - Additional f/u out-pt # Chronic Venous Stasis/LE varicosities - Compression stocking - Anna Damon MD Visit type - Emergency Visit Emergency Visit: No - New Patient This patient is new to me today: No - Critical Care Critical Care patient: No - Discharge Referral Referred to [facility] Med [facility] No ATTENDING PHYSICIAN STATEMENT I saw and evaluated the patient. I reviewed the resident's note and discussed the case with the resident. I agree with the resident's findings and plan as documented. SUBJECTIVE: OBJECTIVE: ASSESSMENT AND PLAN:
--- NOTE | 2018-11-27 13:18 | PN ---
Progress Note, Physician History of Present Illness: stable no new issues - Current Medication List Current Medications: Active Medications Acetaminophen (Tylenol -) 650 mg PO Q6H PRN PRN Reason: PAIN Last Admin: 11/22/18 09:23 Dose: 650 mg Albuterol Sulfate (Ventolin Hfa Inhaler -) 2 puff IH Q4H PRN PRN Reason: SHORT OF BREATH/WHEEZING Last Admin: 11/24/18 03:44 Dose: 2 puff Albuterol Sulfate (Ventolin 0.083% Nebulizer Soln -) 1 amp NEB Q4H PRN PRN Reason: SHORT OF BREATH/WHEEZING Last Admin: 11/26/18 15:45 Dose: 1 amp Arformoterol Tartrate (Brovana (Restricted To Pulmonology/Resp) -) 1 amp NEB RBID [facility] Last Admin: 11/27/18 08:00 Dose: 1 amp Bacitracin (Bacitracin -) 1 applic TP DAILY [facility] Last Admin: 11/27/18 10:28 Dose: 1 applic Docusate Sodium (Colace -) 100 mg PO BID [facility] Last Admin: 11/27/18 09:06 Dose: Not Given Enoxaparin Sodium (Lovenox -) 40 mg SQ DAILY [facility] Last Admin: 11/27/18 09:05 Dose: Not Given Ferrous Sulfate (Feosol -) 325 mg PO BID [facility] Last Admin: 11/27/18 09:06 Dose: Not Given Furosemide (Lasix -) 20 mg PO DAILY [facility] Last Admin: 11/27/18 09:03 Dose: Not Given Piperacillin Sod/Tazobactam (Sod 3.375 gm/ Dextrose) 50 mls @ 100 mls/hr IVPB Q8H-IV [facility]; Protocol Last Admin: 11/27/18 09:02 Dose: 100 mls/hr Vancomycin HCl 1,500 mg/ (Dextrose) 500 mls @ 250 mls/hr IVPB BID@0000,1200 [facility] ; Protocol Last Admin: 11/27/18 03:27 Dose: 250 mls/hr Isosorbide Mononitrate (Imdur -) 60 mg PO HS [facility] Last Admin: 11/26/18 23:09 Dose: 60 mg Montelukast Sodium (Singulair -) 10 mg PO HS [facility] Last Admin: 11/26/18 23:09 Dose: 10 mg Prednisone (Deltasone -) 20 mg PO DAILY [facility] Last Admin: 11/27/18 09:04 Dose: 20 mg Tiotropium [place] (Spiriva Respimat) 2 puff IH DAILY [facility] Last Admin: 11/27/18 10:28 Dose: 2 puff - Objective Vital Signs: Vital Signs Temperature 98.3 F 11/27/18 09:00 Pulse Rate 85 11/27/18 09:00 Respiratory Rate 18 11/27/18 09:00 Blood Pressure 124/72 11/27/18 09:00 O2 Sat by Pulse Oximetry (%) 95 11/27/18 09:00 Constitutional: Yes: No Distress, Calm Cardiovascular: Yes: S1, S2 Respiratory: Yes: Regular, CTA Bilaterally Gastrointestinal: Yes: Normal Bowel Sounds, Soft Musculoskeletal: Yes: Other Extremities: Yes: Erythema Integumentary: Yes: Erythema, Other Neurological: Yes: Alert, Oriented Psychiatric: Yes: Alert, Oriented Labs: CBC, BMP 11/27/18 07:07 11/27/18 07:07 Assessment/Plan Problem List - Problem (1) Cellulitis Code(s): L03.90 - CELLULITIS, UNSPECIFIED (2) COPD (chronic obstructive pulmonary disease) Code(s): J44.9 - CHRONIC OBSTRUCTIVE PULMONARY DISEASE, UNSPECIFIED htn constipation plan continue abx now monitor hand
[2018-11-27] MEDS ORDERED: PT OWN MED DRAWER 7, Y5N ONE (13:38)
--- NOTE | 2018-11-27 14:59 | PN ---
Teaching Attending Note Name of Resident: Claus Damon ATTENDING PHYSICIAN STATEMENT I saw and evaluated the patient. I reviewed the resident's note and discussed the case with the resident. I agree with the resident's findings and plan as documented. SUBJECTIVE:c/o arm pain but states its getting better. denies Cp, SOB,fever, chills, N/V/C/D OBJECTIVE: Last Vital Signs Temp Pulse Resp BP Pulse Ox 98.3 F 85 18 124/72 95 11/27/18 09:00 11/27/18 09:00 11/27/18 09:00 11/27/18 09:00 11/27/18 09:00 General NAD Extremities RUE firm fluctuant area below olenecron on lateral surface, tender and warm. wont allow full exam. below this is faint circumferential erythema not warm or tender. non pitting edema limited from forearm to fingertips 2+pulse ASSESSMENT AND PLAN: 62 year old male with history of Obesity, Chronic Respiratory Failure sec to COPD (on 2L O2 via [place]), Chronic Diastolic CHF, Pulmonary HTN, MR, HTN, GAY, Bilateral LE Lymphedema, Hx osteomyelitis toe s/p 6 weeks Abx, presents with R forearm erythema/pain/tenderness after possibly sustaining an insect bite 3 days prior to admission. 1. Acute RUE Cellulitis- due to spider bite vs trauma to brick wall. pt states its clinically improving. had fluctuant area which pt states is chronic and not an area of concern (only concerned about arm swelling). refusing CT as he can not lay flat. concern for abscess in this area. will call surgery to evaluate. on vanco and zosyn. vanco dose adjusted yesterday will repeat trough prior to 4th dose. ID onboard. 2. Chronic Respiratory Failure secondary to COPD - Stable, no evidence of acute exacerbation. refusing bipap at bedtime. refusing further workup for his lungs. pulmonar on board. on low dose steroids chronically. 3. HTN/CAD with Hx occluded RCA/MR - seen by Cardio - continue Imdur (dose increased to 60mg as per Cardio). Further medication optimization as per Cardio. 4. Chronic Diastolic CHF - no evidence of decompensation. cont home medications 5. Microscopic Hematuria - asymptomatic. For out-patient follow up/Urology referral. 6. Hx of Rectal Stricture (reported by patient)- was planned to do colonoscopy but not cleared for procedure. will need to f/u outpatient. 7. Microcytic Anemia, MCV 69 - Iron deficiency, Iron Sat 12, likely sec to chronic blood loss anemia. GI consulted for further work-up. started on FeSo4 supplementation. 8. Chronic Venous Stasis/LE varicosities - TEDs, Lasix. 9. DVT Px - Lovenox SQ.
--- NOTE | 2018-11-27 16:37 | PN ---
Progress Note, Physician History of Present Illness: PULMONARY ALERT ,NO DISTRESS,-SOB AT REST + ECHOLS. R ARM LESS ERYTHEMA AND SWELLING - Current Medication List Current Medications: Active Medications Acetaminophen (Tylenol -) 650 mg PO Q6H PRN PRN Reason: PAIN Last Admin: 11/22/18 09:23 Dose: 650 mg Albuterol Sulfate (Ventolin Hfa Inhaler -) 2 puff IH Q4H PRN PRN Reason: SHORT OF BREATH/WHEEZING Last Admin: 11/24/18 03:44 Dose: 2 puff Albuterol Sulfate (Ventolin 0.083% Nebulizer Soln -) 1 amp NEB Q4H PRN PRN Reason: SHORT OF BREATH/WHEEZING Last Admin: 11/26/18 15:45 Dose: 1 amp Arformoterol Tartrate (Brovana (Restricted To Pulmonology/Resp) -) 1 amp NEB RBID [facility] Last Admin: 11/27/18 08:00 Dose: 1 amp Bacitracin (Bacitracin -) 1 applic TP DAILY [facility] Last Admin: 11/27/18 10:28 Dose: 1 applic Docusate Sodium (Colace -) 100 mg PO BID [facility] Last Admin: 11/27/18 09:06 Dose: Not Given Enoxaparin Sodium (Lovenox -) 40 mg SQ DAILY [facility] Last Admin: 11/27/18 09:05 Dose: Not Given Ferrous Sulfate (Feosol -) 325 mg PO BID [facility] Last Admin: 11/27/18 09:06 Dose: Not Given Furosemide (Lasix -) 20 mg PO DAILY [facility] Last Admin: 11/27/18 09:03 Dose: Not Given Piperacillin Sod/Tazobactam (Sod 3.375 gm/ Dextrose) 50 mls @ 100 mls/hr IVPB Q8H-IV [facility]; Protocol Last Admin: 11/27/18 09:02 Dose: 100 mls/hr Vancomycin HCl 1,500 mg/ (Dextrose) 500 mls @ 250 mls/hr IVPB BID@0000,1200 [facility] ; Protocol Last Admin: 11/27/18 13:41 Dose: 250 mls/hr Isosorbide Mononitrate (Imdur -) 60 mg PO HS [facility] Last Admin: 11/26/18 23:09 Dose: 60 mg Montelukast Sodium (Singulair -) 10 mg PO HS [facility] Last Admin: 11/26/18 23:09 Dose: 10 mg Prednisone (Deltasone -) 20 mg PO DAILY [facility] Last Admin: 11/27/18 09:04 Dose: 20 mg Tiotropium [place] (Spiriva Respimat) 2 puff IH DAILY [facility] Last Admin: 11/27/18 10:28 Dose: 2 puff - Objective Vital Signs: Vital Signs Temperature 98.6 F 11/27/18 15:00 Pulse Rate 93 H 11/27/18 15:00 Respiratory Rate 18 11/27/18 15:00 Blood Pressure 134/76 11/27/18 15:00 O2 Sat by Pulse Oximetry (%) 95 11/27/18 09:00 Constitutional: Yes: Calm, Obese Eyes: Yes: WNL HENT: Yes: WNL Neck: Yes: WNL Cardiovascular: Yes: Regular Rate and Rhythm, S1, S2 Respiratory: Yes: Diminished Gastrointestinal: Yes: Normal Bowel Sounds, Soft Extremities: Yes: Erythema (LESS ERYTHEMA/SWELLING R ARM) Edema: Yes Labs: CBC, BMP 11/27/18 07:07 11/27/18 07:07 Problem List - Problems (1) Sleep apnea Code(s): G47.30 - SLEEP APNEA, UNSPECIFIED (2) Cellulitis Code(s): L03.90 - CELLULITIS, UNSPECIFIED (3) COPD (chronic obstructive pulmonary disease) Code(s): J44.9 - CHRONIC OBSTRUCTIVE PULMONARY DISEASE, UNSPECIFIED (4) Idiopathic chronic venous hypertension of both lower extremities with ulcer and inflammation Code(s): I87.333 - CHRONIC VENOUS HTN W ULCER AND INFLAM OF BILATERAL LOW EXTRM ; L97.919 - NON-PRS CHRONIC ULC UNSP PRT OF R LOW LEG W UNSP SEVERITY; L97.929 - NON-PRS CHRONIC ULC UNSP PRT OF L LOW LEG W UNSP SEVERITY (5) Lymph edema Code(s): I89.0 - LYMPHEDEMA, NOT ELSEWHERE CLASSIFIED (6) Venous insufficiency of both lower extremities Code(s): I87.2 - VENOUS INSUFFICIENCY (CHRONIC) (PERIPHERAL) (7) CAD (coronary artery disease) Code(s): I25.10 - ATHSCL HEART DISEASE OF [place] CORONARY ARTERY W/O ANG PCTRS (8) Morbid obesity Code(s): E66.01 - MORBID (SEVERE) OBESITY DUE TO EXCESS CALORIES (9) Pulmonary HTN Code(s): I27.20 - PULMONARY HYPERTENSION, UNSPECIFIED (10) Cellulitis Code(s): L03.90 - CELLULITIS, UNSPECIFIED (11) Chronic respiratory failure with hypoxia and hypercapnia Code(s): J96.11 - CHRONIC RESPIRATORY FAILURE WITH HYPOXIA; J96.12 - CHRONIC RESPIRATORY FAILURE WITH HYPERCAPNIA Assessment/Plan IMP ADVANCED COPD O2 DEPENDENT WITH CHRONIC HYPOXEMIC/HYPERCAPNEIC RESPIRATORY FAILURE CLINICALLY IMPROVING PULMONARY HTN SEVERE OSAS NOT COMPLIANT WITH CPAP ASHD CELLULITIS IMPROVING MORBID OBESITY PLAN INHALED BRONCHODILATORS O2 BIPAP AT NIGHT PT REFUSES ABX PER ID DR MCPHERSON Problem List - Problems (1) Sleep apnea Code(s): G47.30 - SLEEP APNEA, UNSPECIFIED (2) Cellulitis Code(s): L03.90 - CELLULITIS, UNSPECIFIED (3) COPD (chronic obstructive pulmonary disease) Code(s): J44.9 - CHRONIC OBSTRUCTIVE PULMONARY DISEASE, UNSPECIFIED (4) Idiopathic chronic venous hypertension of both lower extremities with ulcer and inflammation Code(s): I87.333 - CHRONIC VENOUS HTN W ULCER AND INFLAM OF BILATERAL LOW EXTRM ; L97.919 - NON-PRS CHRONIC ULC UNSP PRT OF R LOW LEG W UNSP SEVERITY; L97.929 - NON-PRS CHRONIC ULC UNSP PRT OF L LOW LEG W UNSP SEVERITY (5) Lymph edema Code(s): I89.0 - LYMPHEDEMA, NOT ELSEWHERE CLASSIFIED (6) Venous insufficiency of both lower extremities Code(s): I87.2 - VENOUS INSUFFICIENCY (CHRONIC) (PERIPHERAL) (7) CAD (coronary artery disease) Code(s): I25.10 - ATHSCL HEART DISEASE OF [place] CORONARY ARTERY W/O ANG PCTRS (8) Morbid obesity Code(s): E66.01 - MORBID (SEVERE) OBESITY DUE TO EXCESS CALORIES (9) Pulmonary HTN Code(s): I27.20 - PULMONARY HYPERTENSION, UNSPECIFIED (10) Cellulitis Code(s): L03.90 - CELLULITIS, UNSPECIFIED (11) Chronic respiratory failure with hypoxia and hypercapnia Code(s): J96.11 - CHRONIC RESPIRATORY FAILURE WITH HYPOXIA; J96.12 - CHRONIC RESPIRATORY FAILURE WITH HYPERCAPNIA
--- NOTE | 2018-11-27 16:39 | CONSULT ---
- Consultation REQUESTING PROVIDER: CONSULT REQUEST: We have been asked to surgically evaluate this patient for right arm cellulitis. PCP:Ladan Ruiz HISTORY OF PRESENT ILLNESS: The patient is a 62 yo male who presented for right arm swelling/pain. 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 This past Monday he noted forearm pain when resting his arms on the table. He then developed swelling and redness. On Monday he fell and scrapped the area. He denies any fevers. Overall he states that the swelling has improved and he is able to make a fist. The redness is improving. The patient is refusing a CT scan because he states that he becomes SOB with lying flat. PMHx: CHF, COPD on home oxygen, Cardiac artery occlusion, chronic venous stasis , left leg ulcer/osteomyelitis with PICC line insertion. Left toe ulcer. B/l bursitis? PSHx: left elbow surgery for abscess? bursa Home Medications Medication Instructions Recorded Prednisone 20 mg PO ASDIR 03/09/17 Albuterol Sulfate [Proair Hfa] 2 puff IH Q4H PRN 07/20/18 Isosorbide Mononitrate [Isosorbide 30 mg PO HS 07/20/18 Mononitrate ER] Montelukast Na [Singulair -] 10 mg PO DAILY 07/20/18 Doxycycline Hyclate 100 mg PO BID 11/20/18 Isosorbide Mononitrate [Isosorbide 60 mg PO DAILY 11/21/18 Mononitrate ER] Allergies Allergy/AdvReac Type Severity Reaction Status Date / Time No Known Allergies Allergy Verified 11/20/18 08:50 REVIEW OF SYSTEMS: CONSTITUTIONAL: Absent: fever, chills CARDIOVASCULAR: Absent: chest pain, syncope, palpitations RESPIRATORY: Present: cough, shortness of breath, dyspnea with exertion PHYSICAL EXAM: GENERAL: Awake, alert, and fully oriented, in no acute distress. UPPER EXTREMITIES: Right arm mild swelling to the volar aspect, no swelling noted to the hand. Dorsal aspect inferior to elbow with erythema/fluctuate area. Small callous noted(dime size) within the erythema. Elbow with callous and mild swelling to above the elbow. LOWER EXTREMITIES: RLE: chronic venous changes. LLE: compression stocking in place, pt refused exam. NEUROLOGICAL: Normal speech, gait not observed. PSYCH: Cooperative. Good eye contact. Appropriate mood and affect. Vital Signs Temperature 98.6 F 11/27/18 15:00 Pulse Rate 93 H 11/27/18 15:00 Respiratory Rate 18 11/27/18 15:00 Blood Pressure 134/76 11/27/18 15:00 O2 Sat by Pulse Oximetry (%) 95 11/27/18 09:00 Lab Results WBC 7.8 K/mm3 (4.0-10.0) 11/27/18 07:07 RBC 5.67 M/mm3 (4.00-5.60) H 11/27/18 07:07 Hgb 12.6 GM/dL (11.7-16.9) 11/27/18 07:07 Hct 39.8 % (35.4-49) 11/27/18 07:07 MCV 70.2 fl (80-96) L 11/27/18 07:07 MCHC 31.6 g/dl (32.0-35.9) L 11/27/18 07:07 RDW 15.6 % (11.9-15.9) 11/27/18 07:07 Plt Count 210 K/MM3 (134-434) 11/27/18 07:07 Sodium 138 mmol/L (136-145) 11/27/18 07:07 Potassium 4.2 mmol/L (3.5-5.1) 11/27/18 07:07 Chloride 97 mmol/L (98-107) L 11/27/18 07:07 Carbon Dioxide 35 mmol/L (21-32) H 11/27/18 07:07 Anion Gap 6 MMOL/L (8-16) L 11/27/18 07:07 BUN 14.6 mg/dL (7-18) 11/27/18 07:07 Creatinine 1.0 mg/dL (0.55-1.3) 11/27/18 07:07 Random Glucose 96 mg/dL (74-106) 11/27/18 07:07 Calcium 9.0 mg/dL (8.5-10.1) 11/27/18 07:07 A/p: 62 yo male with COPD/CHF with CAD, Right arm cellulitis/swelling. Clinically with no leukocytosis or fevers. The patients appears to be improving clinically with IV abx. There is an area which appears to be tender and somewhat fluctuant and may require a surgical debridment/Incision and drainage. At this point since the patient has shown some improvement with IV abx surgery will to continue to follow the patient and monitor the need for any surgery. The patient understands that since he is at high risk, any OR procedure would be done under local/sedation. He wishes to continue IV treatment at this point. Local wound care ordered, his arm should remain covered with dry gauze and kerlix, changed daily or as needed if it becomes soiled. Case d/w Dr. Chase
[2018-11-27] MEDS: ISOSORBIDE MONONITRATE 30 MG TAB.SR.24H (FP) PO SCH (22:06)
[2018-11-27] MEDS: MONTELUKAST NA 10 MG TABLET PO SCH (22:06)
[2018-11-28] MEDS ORDERED: DEXTROSE 5%-WATER - 50 ML IVPB ONE ×3 (01:12→17:37)
[2018-11-28] MEDS ORDERED: PIPERACILLIN/TAZOBACTAM 3.375 GM VIAL IVPB ONE ×3 (01:12→17:37)
[2018-11-28] MEDS: PIPERACILLIN/TAZOB 3.375 GM 3.375 GM in DEXTROSE 5%-WATER - 50 ML IVPB SCH ×3 (01:36→17:51)
[2018-11-28] MEDS: VANCOMYCIN HCL 1,500 MG in DEXTROSE 5%-WATER - 500 ML IVPB SCH ×2 (03:12→12:07)
[2018-11-28] MEDS: ARFORMOTEROL TARTRATE 15 MCG/2 ML VIAL NEB SCH ×2 (08:15→20:27)
[2018-11-28 09:34] LABS: BASO % 0.7 % (0-2.0); EOS % 2.3 % (0-4.5); HEMATOCRIT 41.9 % (35.4-49); LYMPH % 15.5 % (8-40); MCH 21.8 pg (25.7-33.7); MCHC 31.1 g/dl (32.0-35.9); MEAN CELL VOLUME 70.1 fl (80-96); MEAN PLT VOLUME 8.5 fl (7.5-11.1); MONO % 9.1 % (3.8-10.2); NEUT % 72.4 % (42.8-82.8); PLATELET COUNT 232 K/MM3 (134-434); RBC 5.98 M/mm3 (4.00-5.60); RDW 15.9 % (11.9-15.9); WHITE BLOOD COUNT 8.8 K/mm3 (4.0-10.0)
[2018-11-28 10:00] LABS: ALBUMIN 3.3 g/dl (3.4-5.0); BILIRUBIN,TOTAL 0.5 mg/dL (0.2-1); BLOOD UREA NITROGEN 15.7 mg/dL (7-18); CREATININE 0.9 mg/dL (0.55-1.3); MAGNESIUM 2.4 mg/dL (1.8-2.4); PHOSPHOROUS 3.1 mg/dL (2.5-4.9); POTASSIUM 4.3 mmol/L (3.5-5.1); TOT PROT 6.9 g/dl (6.4-8.2)
--- NOTE | 2018-11-28 10:37 | PN ---
Progress Note, Physician History of Present Illness: stable no issues - Current Medication List Current Medications: Active Medications Acetaminophen (Tylenol -) 650 mg PO Q6H PRN PRN Reason: PAIN Last Admin: 11/22/18 09:23 Dose: 650 mg Albuterol Sulfate (Ventolin Hfa Inhaler -) 2 puff IH Q4H PRN PRN Reason: SHORT OF BREATH/WHEEZING Last Admin: 11/24/18 03:44 Dose: 2 puff Albuterol Sulfate (Ventolin 0.083% Nebulizer Soln -) 1 amp NEB Q4H PRN PRN Reason: SHORT OF BREATH/WHEEZING Last Admin: 11/26/18 15:45 Dose: 1 amp Arformoterol Tartrate (Brovana (Restricted To Pulmonology/Resp) -) 1 amp NEB RBID [facility] Last Admin: 11/27/18 21:00 Dose: 1 amp Bacitracin (Bacitracin -) 1 applic TP DAILY [facility] Last Admin: 11/27/18 10:28 Dose: 1 applic Docusate Sodium (Colace -) 100 mg PO BID [facility] Last Admin: 11/27/18 23:51 Dose: Not Given Ferrous Sulfate (Feosol -) 325 mg PO BID [facility] Last Admin: 11/27/18 23:51 Dose: Not Given Furosemide (Lasix -) 20 mg PO DAILY [facility] Last Admin: 11/27/18 09:03 Dose: Not Given Piperacillin Sod/Tazobactam (Sod 3.375 gm/ Dextrose) 50 mls @ 100 mls/hr IVPB Q8H-IV [facility]; Protocol Last Admin: 11/28/18 01:36 Dose: 100 mls/hr Vancomycin HCl 1,500 mg/ (Dextrose) 500 mls @ 250 mls/hr IVPB BID@0000,1200 [facility] ; Protocol Last Admin: 11/28/18 03:12 Dose: Not Given Isosorbide Mononitrate (Imdur -) 60 mg PO HS [facility] Last Admin: 11/27/18 22:06 Dose: 60 mg Montelukast Sodium (Singulair -) 10 mg PO HS [facility] Last Admin: 11/27/18 22:06 Dose: 10 mg Prednisone (Deltasone -) 20 mg PO DAILY [facility] Last Admin: 11/27/18 09:04 Dose: 20 mg Tiotropium [place] (Spiriva Respimat) 2 puff IH DAILY [facility] Last Admin: 11/27/18 10:28 Dose: 2 puff - Objective Vital Signs: Vital Signs Temperature 97.6 F 11/28/18 06:00 Pulse Rate 73 11/28/18 06:00 Respiratory Rate 18 11/28/18 06:00 Blood Pressure 133/83 11/28/18 06:00 O2 Sat by Pulse Oximetry (%) 95 11/27/18 21:00 Constitutional: Yes: No Distress, Calm Cardiovascular: Yes: Regular Rate and Rhythm Respiratory: Yes: Regular, CTA Bilaterally Gastrointestinal: Yes: Normal Bowel Sounds, Soft Musculoskeletal: Yes: Other Extremities: Yes: Erythema (improving), Other Neurological: Yes: Alert, Oriented Psychiatric: Yes: Alert, Oriented Labs: CBC, BMP 11/28/18 08:30 11/28/18 08:30 Assessment/Plan Problem List - Problem (1) Cellulitis Code(s): L03.90 - CELLULITIS, UNSPECIFIED (2) COPD (chronic obstructive pulmonary disease) Code(s): J44.9 - CHRONIC OBSTRUCTIVE PULMONARY DISEASE, UNSPECIFIED htn constipation plan patient is refusing any surgical intervention just wants abx in that case patient can be send to [facility] and given abx there patient will need at least a couple of days of iv abx patient has refused imaging studies also
[2018-11-28] MEDS: predniSONE 10 MG TABLET (UD) PO SCH (10:44)
[2018-11-28] MEDS: FERROUS SO4 325 MG TABLET (FP) PO SCH ×2 (10:44→22:19)
[2018-11-28] MEDS: DOCUSATE SODIUM 100 MG CAPSULE (FP) PO SCH ×2 (10:44→22:19)
[2018-11-28] MEDS: TIOTROPIUM BROMIDE 2.5 MCG (SPIRIVA) RESPIMAT INHALER IH SCH (10:45)
[2018-11-28] MEDS: FUROSEMIDE 20 MG TABLET (FP) PO SCH (10:45)
[2018-11-28] MEDS: BACITRACIN 15 GM TUBE TOPICAL OINTMENT TP SCH (10:46)
--- NOTE | 2018-11-28 11:15 | PN ---
Teaching Attending Note Name of Resident: Claus Damon ATTENDING PHYSICIAN STATEMENT I saw and evaluated the patient. I reviewed the resident's note and discussed the case with the resident. I agree with the resident's findings and plan as documented. SUBJECTIVE: arm swelling resolved. states pain is slightly better today. denies Cp, SOB, fever, chills, N/V/C/d OBJECTIVE: Last Vital Signs Temp Pulse Resp BP Pulse Ox 97.6 F 73 18 133/83 94 L 11/28/18 06:00 11/28/18 06:00 11/28/18 06:00 11/28/18 06:00 11/28/18 08:15 General NAD Extremities RUE swelling resolved. callous below the elbow with firm area adajcent to it, appear fluctuant but no longer tender. area is warm and erythematous. there is no other erythema on the forearm. ASSESSMENT AND PLAN: 62 year old male with history of Obesity, Chronic Respiratory Failure sec to COPD (on 2L O2 via [place]), Chronic Diastolic CHF, Pulmonary HTN, MR, HTN, GAY, Bilateral LE Lymphedema, Hx osteomyelitis toe s/p 6 weeks Abx, presents with R forearm erythema/pain/tenderness after possibly sustaining an insect bite 3 days prior to admission. 1. Acute RUE Cellulitis- due to spider bite vs trauma to brick wall. clinically improved. vanco dose adjusted yesterday. trough done last night was above goal. will reduce to 1250mg.spoke with ID who states he will need 5 more days of IV abx. will see if can transition to SNF to continue with daily infusions. evaluated by surgeon and no I&D at this time. ID onboard. 2. Chronic Respiratory Failure secondary to COPD - Stable, no evidence of acute exacerbation. refusing bipap at bedtime. refusing further workup for his lungs. pulmonary on board. on low dose steroids chronically. 3. HTN/CAD with Hx occluded RCA/MR - seen by Cardio - continue Imdur (dose increased to 60mg as per Cardio). Further medication optimization as per Cardio. 4. Chronic Diastolic CHF - no evidence of decompensation. cont home medications 5. Microscopic Hematuria - asymptomatic. For out-patient follow up/Urology referral. 6. Hx of Rectal Stricture (reported by patient)- was planned to do colonoscopy but not cleared for procedure. will need to f/u outpatient. 7. Microcytic Anemia, MCV 69 - Iron deficiency, Iron Sat 12, likely sec to chronic blood loss anemia. GI consulted for further work-up. started on FeSo4 supplementation. 8. Chronic Venous Stasis/LE varicosities - TEDs, Lasix. 9. DVT Px - Lovenox SQ 10. will need several more days of IV abx. will d/w SW if can be completed at SNF
[2018-11-28] MEDS ORDERED: PT OWN MED DRAWER 7, Y5N ONE (11:53)
--- NOTE | 2018-11-28 12:57 | PN ---
Progress Note, Physician History of Present Illness: PULMONARY ALERT,COMFORTABLE AT REST + ECHOLS,STILL REFUSING BIPAP AT NIGHT. R ARM LESS ERYTHEMA AND SWELLING - Current Medication List Current Medications: Active Medications Acetaminophen (Tylenol -) 650 mg PO Q6H PRN PRN Reason: PAIN Last Admin: 11/22/18 09:23 Dose: 650 mg Albuterol Sulfate (Ventolin Hfa Inhaler -) 2 puff IH Q4H PRN PRN Reason: SHORT OF BREATH/WHEEZING Last Admin: 11/24/18 03:44 Dose: 2 puff Albuterol Sulfate (Ventolin 0.083% Nebulizer Soln -) 1 amp NEB Q4H PRN PRN Reason: SHORT OF BREATH/WHEEZING Last Admin: 11/26/18 15:45 Dose: 1 amp Arformoterol Tartrate (Brovana (Restricted To Pulmonology/Resp) -) 1 amp NEB RBID [facility] Last Admin: 11/28/18 08:15 Dose: 1 amp Bacitracin (Bacitracin -) 1 applic TP DAILY [facility] Last Admin: 11/28/18 10:46 Dose: 1 applic Docusate Sodium (Colace -) 100 mg PO BID [facility] Last Admin: 11/28/18 10:44 Dose: Not Given Ferrous Sulfate (Feosol -) 325 mg PO BID [facility] Last Admin: 11/28/18 10:44 Dose: Not Given Furosemide (Lasix -) 20 mg PO DAILY [facility] Last Admin: 11/28/18 10:45 Dose: Not Given Piperacillin Sod/Tazobactam (Sod 3.375 gm/ Dextrose) 50 mls @ 100 mls/hr IVPB Q8H-IV [facility]; Protocol Last Admin: 11/28/18 10:44 Dose: 100 mls/hr Vancomycin HCl 1,500 mg/ (Dextrose) 500 mls @ 250 mls/hr IVPB BID@0000,1200 [facility] ; Protocol Last Admin: 11/28/18 12:07 Dose: 250 mls/hr Isosorbide Mononitrate (Imdur -) 60 mg PO HS [facility] Last Admin: 11/27/18 22:06 Dose: 60 mg Montelukast Sodium (Singulair -) 10 mg PO HS [facility] Last Admin: 11/27/18 22:06 Dose: 10 mg Prednisone (Deltasone -) 20 mg PO DAILY [facility] Last Admin: 11/28/18 10:44 Dose: 20 mg Tiotropium [place] (Spiriva Respimat) 2 puff IH DAILY [facility] Last Admin: 11/28/18 10:45 Dose: 2 puff - Objective Vital Signs: Vital Signs Temperature 97.6 F 11/28/18 11:29 Pulse Rate 76 11/28/18 11:29 Respiratory Rate 18 11/28/18 11:29 Blood Pressure 134/78 11/28/18 11:29 O2 Sat by Pulse Oximetry (%) 94 L 11/28/18 08:15 Constitutional: Yes: Calm, Obese Eyes: Yes: WNL HENT: Yes: WNL Neck: Yes: WNL Cardiovascular: Yes: Regular Rate and Rhythm, S1, S2 Respiratory: Yes: Diminished Gastrointestinal: Yes: Normal Bowel Sounds, Soft Extremities: Yes: Other (LESS SWELLING AND ERYTHEMA) Edema: Yes Labs: CBC, BMP 11/28/18 08:30 11/28/18 08:30 Problem List - Problems (1) Sleep apnea Code(s): G47.30 - SLEEP APNEA, UNSPECIFIED (2) Cellulitis Code(s): L03.90 - CELLULITIS, UNSPECIFIED (3) COPD (chronic obstructive pulmonary disease) Code(s): J44.9 - CHRONIC OBSTRUCTIVE PULMONARY DISEASE, UNSPECIFIED (4) Idiopathic chronic venous hypertension of both lower extremities with ulcer and inflammation Code(s): I87.333 - CHRONIC VENOUS HTN W ULCER AND INFLAM OF BILATERAL LOW EXTRM ; L97.919 - NON-PRS CHRONIC ULC UNSP PRT OF R LOW LEG W UNSP SEVERITY; L97.929 - NON-PRS CHRONIC ULC UNSP PRT OF L LOW LEG W UNSP SEVERITY (5) Lymph edema Code(s): I89.0 - LYMPHEDEMA, NOT ELSEWHERE CLASSIFIED (6) Venous insufficiency of both lower extremities Code(s): I87.2 - VENOUS INSUFFICIENCY (CHRONIC) (PERIPHERAL) (7) CAD (coronary artery disease) Code(s): I25.10 - ATHSCL HEART DISEASE OF [place] CORONARY ARTERY W/O ANG PCTRS (8) Morbid obesity Code(s): E66.01 - MORBID (SEVERE) OBESITY DUE TO EXCESS CALORIES (9) Pulmonary HTN Code(s): I27.20 - PULMONARY HYPERTENSION, UNSPECIFIED (10) Cellulitis Code(s): L03.90 - CELLULITIS, UNSPECIFIED (11) Chronic respiratory failure with hypoxia and hypercapnia Code(s): J96.11 - CHRONIC RESPIRATORY FAILURE WITH HYPOXIA; J96.12 - CHRONIC RESPIRATORY FAILURE WITH HYPERCAPNIA Assessment/Plan IMP ADVANCED COPD O2 DEPENDENT WITH CHRONIC HYPOXEMIC/HYPERCAPNEIC RESPIRATORY FAILURE CLINICALLY IMPROVING PULMONARY HTN SEVERE OSAS NOT COMPLIANT WITH CPAP ASHD CELLULITIS IMPROVING MORBID OBESITY PLAN INHALED BRONCHODILATORS O2 BIPAP AT NIGHT PT REFUSES ABX PER ID ? I+D DR MCPHERSON Problem List - Problems (1) Sleep apnea Code(s): G47.30 - SLEEP APNEA, UNSPECIFIED (2) Cellulitis Code(s): L03.90 - CELLULITIS, UNSPECIFIED (3) COPD (chronic obstructive pulmonary disease) Code(s): J44.9 - CHRONIC OBSTRUCTIVE PULMONARY DISEASE, UNSPECIFIED (4) Idiopathic chronic venous hypertension of both lower extremities with ulcer and inflammation Code(s): I87.333 - CHRONIC VENOUS HTN W ULCER AND INFLAM OF BILATERAL LOW EXTRM ; L97.919 - NON-PRS CHRONIC ULC UNSP PRT OF R LOW LEG W UNSP SEVERITY; L97.929 - NON-PRS CHRONIC ULC UNSP PRT OF L LOW LEG W UNSP SEVERITY (5) Lymph edema Code(s): I89.0 - LYMPHEDEMA, NOT ELSEWHERE CLASSIFIED (6) Venous insufficiency of both lower extremities Code(s): I87.2 - VENOUS INSUFFICIENCY (CHRONIC) (PERIPHERAL) (7) CAD (coronary artery disease) Code(s): I25.10 - ATHSCL HEART DISEASE OF [place] CORONARY ARTERY W/O ANG PCTRS (8) Morbid obesity Code(s): E66.01 - MORBID (SEVERE) OBESITY DUE TO EXCESS CALORIES (9) Pulmonary HTN Code(s): I27.20 - PULMONARY HYPERTENSION, UNSPECIFIED (10) Cellulitis Code(s): L03.90 - CELLULITIS, UNSPECIFIED (11) Chronic respiratory failure with hypoxia and hypercapnia Code(s): J96.11 - CHRONIC RESPIRATORY FAILURE WITH HYPOXIA; J96.12 - CHRONIC RESPIRATORY FAILURE WITH HYPERCAPNIA
--- NOTE | 2018-11-28 14:46 | PN ---
Physical Exam: SUBJECTIVE: 62 y/o M w PMH COPD (on 2L home o2), chronic diastolic CHF, HTN, GAY , BL LE lymphedema whom presented to the ED w c/o forearm redness and pain and a second concern of SOB, LINDSEY 8. Today, the pt says his RIGHT arm feels better. There is less redness, swelling, and pain. SOB is back to his baseline. He denies fever, chills, and bleeding. Pt presently reports no CP, no fever, no chills, and no NVFD. OBJECTIVE: Vital Signs Temp Pulse Resp BP Pulse Ox 97.6 F 76 18 134/78 94 L 11/28/18 11:29 11/28/18 11:29 11/28/18 11:29 11/28/18 11:29 11/28/18 08:15 GENERAL: The patient is awake, alert, and fully oriented x3. Pt sitting at side of bed throughout exam, sitting upright, watching television. Pt on nasal canula. HEAD: Normal with no signs of trauma EYES: TAMMIE, EOMI, sclera anicteric, conjunctiva clear. No ptosis. ENT: Ears normal, nares patent, moist mucous membranes. NECK: Trachea midline, full range of motion, supple. LUNGS: Lungs CTAB with wheezes at the left bases, no other adventitious sounds. HEART: Regular rate and rhythm, S1, S2 without murmur, rub or gallop. ABDOMEN: Obese, soft, nontender, nondistended, normoactive bowel sounds, no guarding, no rebound, no hepatosplenomegaly, no masses. EXTREMITIES: RIGHT posterior aspect with [id number] abrasion/induration open to air , surrounded by diffuse, non-demarcated errythema and edema, also warm + tender to palpation. Edema present in RIGHT hand. 2+ pulses, warm, well-perfused, BL LE edema. NEUROLOGICAL: Cranial nerves III through XII grossly intact. Normal speech, gait not observed. PSYCH: Calm in AM SKIN: Many tattoos. Warm, dry, normal turgor, no rashes or lesions noted Laboratory Results - last 24 hr 11/27/18 11/28/18 11/28/18 13:19 00:05 08:30 WBC 8.8 RBC 5.98 H Hgb 13.0 Hct 41.9 MCV 70.1 L MCH 21.8 L MCHC 31.1 L RDW 15.9 Plt Count 232 MPV 8.5 Absolute Neuts (auto) 6.3 Neutrophils % 72.4 Lymphocytes % 15.5 Monocytes % 9.1 Eosinophils % 2.3 Basophils % 0.7 Nucleated RBC % 0 Sodium Potassium Chloride Carbon Dioxide Anion Gap BUN Creatinine Est GFR (CKD-EPI)AfAm Est GFR (CKD-EPI)NonAf Random Glucose Calcium Phosphorus Magnesium Total Bilirubin AST ALT Alkaline Phosphatase Total Protein Albumin Stool Occult Blood Negative Vancomycin Pre-Dose 17.2 L 11/28/18 08:30 WBC RBC Hgb Hct MCV MCH MCHC RDW Plt Count MPV Absolute Neuts (auto) Neutrophils % Lymphocytes % Monocytes % Eosinophils % Basophils % Nucleated RBC % Sodium 140 Potassium 4.3 Chloride 97 L Carbon Dioxide 36 H Anion Gap 7 L BUN 15.7 Creatinine 0.9 Est GFR (CKD-EPI)AfAm 107.22 Est GFR (CKD-EPI)NonAf 92.51 Random Glucose 74 Calcium 9.0 Phosphorus 3.1 Magnesium 2.4 Total Bilirubin 0.5 AST 24 ALT 32 Alkaline Phosphatase 81 Total Protein 6.9 Albumin 3.3 L Stool Occult Blood Vancomycin Pre-Dose Active Medications Acetaminophen (Tylenol -) 650 mg PO Q6H PRN PRN Reason: PAIN Last Admin: 11/22/18 09:23 Dose: 650 mg Albuterol Sulfate (Ventolin Hfa Inhaler -) 2 puff IH Q4H PRN PRN Reason: SHORT OF BREATH/WHEEZING Last Admin: 11/24/18 03:44 Dose: 2 puff Albuterol Sulfate (Ventolin 0.083% Nebulizer Soln -) 1 amp NEB Q4H PRN PRN Reason: SHORT OF BREATH/WHEEZING Last Admin: 11/26/18 15:45 Dose: 1 amp Arformoterol Tartrate (Brovana (Restricted To Pulmonology/Resp) -) 1 amp NEB RBID [facility] Last Admin: 11/28/18 08:15 Dose: 1 amp Bacitracin (Bacitracin -) 1 applic TP DAILY [facility] Last Admin: 11/28/18 10:46 Dose: 1 applic Docusate Sodium (Colace -) 100 mg PO BID [facility] Last Admin: 11/28/18 10:44 Dose: Not Given Ferrous Sulfate (Feosol -) 325 mg PO BID [facility] Last Admin: 11/28/18 10:44 Dose: Not Given Furosemide (Lasix -) 20 mg PO DAILY [facility] Last Admin: 11/28/18 10:45 Dose: Not Given Piperacillin Sod/Tazobactam (Sod 3.375 gm/ Dextrose) 50 mls @ 100 mls/hr IVPB Q8H-IV [facility]; Protocol Last Admin: 11/28/18 10:44 Dose: 100 mls/hr Vancomycin HCl 1,500 mg/ (Dextrose) 500 mls @ 250 mls/hr IVPB BID@0000,1200 [facility] ; Protocol Last Admin: 11/28/18 12:07 Dose: 250 mls/hr Isosorbide Mononitrate (Imdur -) 60 mg PO HS [facility] Last Admin: 11/27/18 22:06 Dose: 60 mg Montelukast Sodium (Singulair -) 10 mg PO HS [facility] Last Admin: 11/27/18 22:06 Dose: 10 mg Prednisone (Deltasone -) 20 mg PO DAILY [facility] Last Admin: 11/28/18 10:44 Dose: 20 mg Tiotropium [place] (Spiriva Respimat) 2 puff IH DAILY [facility] Last Admin: 11/28/18 10:45 Dose: 2 puff ASSESSMENT/PLAN: 62 y/o F PMH chronic respiratory failure 2/2 COPD (on 2L home O2 via [place]), chronic diastolic CHF, HTN, GAY, BL LE lymphedema, presenting w RIGHT forearm erythema/pain/tenderness s/p trauma consistent with cellulitis. # RUE Cellulitis - Improved clinical presentation - Afebrile and hemodynamically stable - Elbow Xray demonstrates soft tissue calcification, cannot r/o FB, air medial inferior soft tissues - Orthopedics evaluated - no intervention indicated - ID on board (Dr. Davenport) poss abscess, ID who states he will need 5 more days of IV abx., - Surgical team current plan: no surgery - Vanco 1,500 mg. - Vanco trough trough done last night was above goal. Plan to reduce to 1250 mg. , Repeat on 4th dose # H/o rectal stricture - GI on board (Dr. Jerez) - Colonoscopy to be performed out-pt # Chronic respiratory failure 2/2 COPD - No evidence of acute exacerbation on phys. exam - NEG CXR - Cont. prednisone 20mg, singulair - Bronchodilators PRN - 2L o2 [place] - Pulm on board (Dr. Donohue) - Pt declines referral for pulmonary rehab # Chronic diastolic CHF - Not consistent w vol overload - No evidence of decompensation. - Cont. lasix. - Cont. Imdur (dose increased to 60mg as per cardio) - Cardiology on board (Dr. Restrepo) # GAY - Non-compliant with BiPAP - Refusing fitment in hospital #HTN - Cont. current regimen (imdur) # Microscopic hematuria - Asymptomatic - Refer to urology out-pt # Microcytic anemia - MCV 70.1 - Most likely 2/2 Fe deficiency - Pt provided stool sample - Pt refusing Fe treatment - Additional f/u out-pt # Chronic Venous Stasis/LE varicosities - Compression stocking - [employer] Claus Damon MD Visit type - Emergency Visit Emergency Visit: No - New Patient This patient is new to me today: No - Critical Care Critical Care patient: No - Discharge Referral Referred to [facility] Med [facility] No ATTENDING PHYSICIAN STATEMENT I saw and evaluated the patient. I reviewed the resident's note and discussed the case with the resident. I agree with the resident's findings and plan as documented. SUBJECTIVE: OBJECTIVE: ASSESSMENT AND PLAN:
--- NOTE | 2018-11-28 15:36 | PN ---
Progress Note (short form) - Note Progress Note: Cardiology Progress Note, covering for Dr Calzada: s: no cp palps dizzy; mild chronic smumers Current Medications Generic Name Dose Route Start Last Admin Trade Name Freq PRN Reason Stop Dose Admin Acetaminophen 650 mg 11/20/18 19:20 11/22/18 09:23 Tylenol - PO 650 mg Q6H PRN Administration PAIN Albuterol Sulfate 2 puff 11/20/18 13:36 11/24/18 03:44 Ventolin Hfa Inhaler - IH 2 puff Q4H PRN Administration SHORT OF BREATH/WHEEZING Albuterol Sulfate 1 amp 11/21/18 15:38 11/26/18 15:45 Ventolin 0.083% Nebulizer Soln - NEB 1 amp Q4H PRN Administration SHORT OF BREATH/WHEEZING Arformoterol Tartrate 1 amp 11/21/18 20:00 11/28/18 08:15 Brovana (Restricted To Pulmonology/Resp) - NEB 1 amp RBID JALYN Administration Bacitracin 1 applic 11/20/18 19:30 11/28/18 10:46 Bacitracin - TP 1 applic DAILY JALYN Administration Docusate Sodium 100 mg 11/23/18 22:00 11/28/18 10:44 Colace - PO Not Given BID JALYN Ferrous Sulfate 325 mg 11/23/18 22:00 11/28/18 10:44 Feosol - PO Not Given BID JALYN Furosemide 20 mg 11/21/18 10:00 11/28/18 10:45 Lasix - PO Not Given DAILY JALYN Piperacillin Sod/Tazobactam 50 mls @ 100 mls/hr 11/20/18 14:30 11/28/18 10:44 Sod 3.375 gm/ Dextrose IVPB 100 mls/hr Q8H-IV JALYN Administration Protocol Vancomycin HCl 1,500 mg/ 500 mls @ 250 mls/hr 11/27/18 00:00 11/28/18 12:07 Dextrose IVPB 250 mls/hr BID@0000,1200 JALYN Administration Protocol Isosorbide Mononitrate 60 mg 11/22/18 08:23 11/27/18 22:06 Imdur - PO 60 mg HS JALYN Administration Montelukast Sodium 10 mg 11/20/18 22:18 11/27/18 22:06 Singulair - PO 10 mg HS JALYN Administration Prednisone 20 mg 11/20/18 22:30 11/28/18 10:44 Deltasone - PO 20 mg DAILY JALYN Administration Tiotropium [place] 2 puff 11/21/18 15:45 11/28/18 10:45 Spiriva Respimat IH 2 puff DAILY JALYN Administration Vital Signs Period Temp Pulse Resp BP Sys/Santiago Pulse Ox Last 24 Hr 97.6 F-98.6 F 73-84 18-18 119-135/76-83 94-95 Neck: Supple, No JVD. Heart: PMI was not localized. Slight left parasternal and substernal heave. Grade III/ decrescendo systolic murmur was heard along the left sternal border and apex, that radiated towards the left axilla. A grade II/ ejection systolic murmur was heard at the second right intercostal space and left sternal border. Murmur ended in [id number] systole. No diastolic murmur or gallops were heard. Lungs: Bilateral scattered crepitations and wheezing. There were decreased breath sounds at both bases. Chest: Slight increased AP diameter. Expansion grossly appeared symmetrical. Abdomen: Morbidly obese, soft, and nontender. No hepatosplenomegaly or palpable masses were felt. There was a small, reducible umbilical hernia, a possible small hypogastric hernia. Extremities: Compression stocking on the left lower extremity. Patient does not want it removed. The right foot has been bandaged. Left lower extremity has brawny edema. Right upper extremity including the elbow is swollen, remains mild to moderately hyperemic. no jaundice diaphoresis CBC, BMP 11/28/18 08:30 11/28/18 08:30 IMPRESSION: 1. Coronary artery disease, history of PLASTIC TILE LAYER (coronary total occlusion) of the right coronary artery, angina pectoris with recent recurrence. 2. Advanced oxygen-dependent chronic obstructive pulmonary disease. 3. Hypertension, hypertensive cardiovascular disease. 4. Systolic murmur compatible with mitral regurgitation. 5. Aortic valvular disease, most likely aortic sclerosis 7. Cellulitis of the right upper extremity 9. Congestive heart failure 10. Obstructive sleep apnea syndrome. 11. Morbid obesity. 12. Bilateral lower extremity varicose veins and chronic stasis changes. 13. Pulmonary hypertension. RECOMMENDATIONS: 1. Continue current cardiac medications. Cont po lasix. 2. If chest pains were to occur titrate Imdur to a maximum of 120mg PO daily. 3. Abx per pmd/ID for cellulitis
[2018-11-28] MEDS: MONTELUKAST NA 10 MG TABLET PO SCH (22:20)
[2018-11-28] MEDS: ISOSORBIDE MONONITRATE 30 MG TAB.SR.24H (FP) PO SCH (22:20)
[2018-11-29] MEDS: VANCOMYCIN HCL 1,500 MG in DEXTROSE 5%-WATER - 500 ML IVPB SCH ×2 (00:45→12:11)
[2018-11-29] MEDS ORDERED: PIPERACILLIN/TAZOBACTAM 3.375 GM VIAL IVPB ONE ×3 (01:21→17:00)
[2018-11-29] MEDS ORDERED: DEXTROSE 5%-WATER - 50 ML IVPB ONE ×3 (01:22→17:00)
[2018-11-29] MEDS: PIPERACILLIN/TAZOB 3.375 GM 3.375 GM in DEXTROSE 5%-WATER - 50 ML IVPB SCH ×3 (02:46→17:20)
[2018-11-29 09:50] LABS: BASO % 0.4 % (0-2.0); EOS % 1.9 % (0-4.5); HEMATOCRIT 41.3 % (35.4-49); HEMOGLOBIN 12.9 GM/dL (11.7-16.9); LYMPH % 15.7 % (8-40); MCH 22.1 pg (25.7-33.7); MCHC 31.2 g/dl (32.0-35.9); MEAN CELL VOLUME 70.7 fl (80-96); MEAN PLT VOLUME 8.2 fl (7.5-11.1); MONO % 10.2 % (3.8-10.2); NEUT % 71.8 % (42.8-82.8); PLATELET COUNT 238 K/MM3 (134-434); RBC 5.84 M/mm3 (4.00-5.60); WHITE BLOOD COUNT 7.3 K/mm3 (4.0-10.0)
[2018-11-29] MEDS: ARFORMOTEROL TARTRATE 15 MCG/2 ML VIAL NEB SCH ×2 (10:00→21:39)
[2018-11-29 10:19] LABS: ALBUMIN 3.3 g/dl (3.4-5.0); BILIRUBIN,TOTAL 0.5 mg/dL (0.2-1); BLOOD UREA NITROGEN 18.3 mg/dL (7-18); CALCIUM 8.6 mg/dL (8.5-10.1); CREATININE 0.9 mg/dL (0.55-1.3); MAGNESIUM 2.4 mg/dL (1.8-2.4); PHOSPHOROUS 3.8 mg/dL (2.5-4.9); POTASSIUM 4.5 mmol/L (3.5-5.1); TOT PROT 7.3 g/dl (6.4-8.2)
[2018-11-29] MEDS: FUROSEMIDE 20 MG TABLET (FP) PO SCH (10:21)
[2018-11-29] MEDS: DOCUSATE SODIUM 100 MG CAPSULE (FP) PO SCH ×2 (10:21→21:00)
[2018-11-29] MEDS: FERROUS SO4 325 MG TABLET (FP) PO SCH ×2 (10:21→21:00)
[2018-11-29] MEDS: predniSONE 10 MG TABLET (UD) PO SCH (10:22)
[2018-11-29] MEDS: TIOTROPIUM BROMIDE 2.5 MCG (SPIRIVA) RESPIMAT INHALER IH SCH (10:22)
[2018-11-29] MEDS: BACITRACIN 15 GM TUBE TOPICAL OINTMENT TP SCH (10:23)
[2018-11-29] MEDS ORDERED: PT OWN MED DRAWER 7, Y5N ONE (12:05)
--- NOTE | 2018-11-29 12:50 | PN ---
Progress Note (short form) - Note Progress Note: Cardiology Progress Note, covering for Dr Calzada: s: no cp palps dizzy; mild chronic summers Current Medications Generic Name Dose Route Start Last Admin Trade Name Freq PRN Reason Stop Dose Admin Acetaminophen 650 mg 11/20/18 19:20 11/22/18 09:23 Tylenol - PO 650 mg Q6H PRN Administration PAIN Albuterol Sulfate 2 puff 11/20/18 13:36 11/24/18 03:44 Ventolin Hfa Inhaler - IH 2 puff Q4H PRN Administration SHORT OF BREATH/WHEEZING Albuterol Sulfate 1 amp 11/21/18 15:38 11/26/18 15:45 Ventolin 0.083% Nebulizer Soln - NEB 1 amp Q4H PRN Administration SHORT OF BREATH/WHEEZING Arformoterol Tartrate 1 amp 11/21/18 20:00 11/29/18 10:00 Brovana (Restricted To Pulmonology/Resp) - NEB 1 amp RBID JALYN Administration Bacitracin 1 applic 11/20/18 19:30 11/29/18 10:23 Bacitracin - TP 1 applic DAILY JALYN Administration Docusate Sodium 100 mg 11/23/18 22:00 11/29/18 10:21 Colace - PO Not Given BID JALYN Ferrous Sulfate 325 mg 11/23/18 22:00 11/29/18 10:21 Feosol - PO Not Given BID JALYN Furosemide 20 mg 11/21/18 10:00 11/29/18 10:21 Lasix - PO Not Given DAILY JALYN Piperacillin Sod/Tazobactam 50 mls @ 100 mls/hr 11/20/18 14:30 11/29/18 10:23 Sod 3.375 gm/ Dextrose IVPB 100 mls/hr Q8H-IV JALYN Administration Protocol Vancomycin HCl 1,500 mg/ 500 mls @ 250 mls/hr 11/27/18 00:00 11/29/18 12:11 Dextrose IVPB 250 mls/hr BID@0000,1200 JALYN Administration Protocol Isosorbide Mononitrate 60 mg 11/22/18 08:23 11/28/18 22:20 Imdur - PO 60 mg HS JALYN Administration Montelukast Sodium 10 mg 11/20/18 22:18 11/28/18 22:20 Singulair - PO 10 mg HS JALYN Administration Prednisone 20 mg 11/20/18 22:30 11/29/18 10:22 Deltasone - PO 20 mg DAILY JALYN Administration Tiotropium [place] 2 puff 11/21/18 15:45 11/29/18 10:22 Spiriva Respimat IH 2 puff DAILY JALYN Administration Vital Signs Period Temp Pulse Resp BP Sys/Santiago Pulse Ox Last 24 Hr 97 F-98.9 F 68-86 18-20 113-134/66-87 95 Neck: Supple, No JVD. Heart: PMI was not localized. Slight left parasternal and substernal heave. Grade III/ decrescendo systolic murmur was heard along the left sternal border and apex, that radiated towards the left axilla. A grade II/ ejection systolic murmur was heard at the second right intercostal space and left sternal border. Murmur ended in [id number] systole. No diastolic murmur or gallops were heard. Lungs: Bilateral scattered crepitations and wheezing. There were decreased breath sounds at both bases. Chest: Slight increased AP diameter. Expansion grossly appeared symmetrical. Abdomen: Morbidly obese, soft, and nontender. No hepatosplenomegaly or palpable masses were felt. There was a small, reducible umbilical hernia, a possible small hypogastric hernia. Extremities: Compression stocking on the left lower extremity. Patient does not want it removed. The right foot has been bandaged. Left lower extremity has brawny edema. Right upper extremity including the elbow is swollen, remains mild to moderately hyperemic. no jaundice diaphoresis CBC, BMP 11/29/18 08:25 11/29/18 08:25 IMPRESSION: 1. 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 2. Advanced oxygen-dependent chronic obstructive pulmonary disease. 3. Hypertension, hypertensive cardiovascular disease. 4. Systolic murmur compatible with mitral regurgitation. 5. Aortic valvular disease, most likely aortic sclerosis 7. Cellulitis of the right upper extremity 9. Congestive heart failure 10. Obstructive sleep apnea syndrome. 11. Morbid obesity. 12. Bilateral lower extremity varicose veins and chronic stasis changes. 13. Pulmonary hypertension. RECOMMENDATIONS: 1. Continue current cardiac medications. Cont po lasix. 2. If chest pains were to occur titrate Imdur to a maximum of 120mg PO daily. 3. Abx per pmd/ID for cellulitis
--- NOTE | 2018-11-29 13:04 | PN ---
Physical Exam: SUBJECTIVE: 62 y/o M w PMH COPD (on 2L home o2), chronic diastolic CHF, HTN, GAY , BL LE lymphedema whom presented to the ED w c/o forearm redness and pain and a second concern of SOB, LINDSEY 9. Today, the pt reports he experience the most relief/improvement since admission. He says his RIGHT arm only has pain at single point, upon pressing it and otherwise has no complaints. He reports less redness, swelling, and pain. SOB is back to his baseline. He denies fever, chills, and bleeding. Pt presently reports no CP, no fever, no chills, and no NVFD. OBJECTIVE: Vital Signs Temp Pulse Resp BP Pulse Ox 98.4 F 72 20 116/80 95 11/29/18 09:05 11/29/18 09:05 11/29/18 09:05 11/29/18 09:05 11/28/18 21:00 GENERAL: The patient is awake, alert, and fully oriented x3. Pt sitting at side of bed throughout exam, sitting upright, watching television. Pt on nasal canula. HEAD: Normal with no signs of trauma EYES: TAMMIE, EOMI, sclera anicteric, conjunctiva clear. No ptosis. ENT: Ears normal, nares patent, moist mucous membranes. NECK: Trachea midline, full range of motion, supple. LUNGS: Lungs CTAB with wheezes at the left bases, no other adventitious sounds. HEART: Regular rate and rhythm, S1, S2 without murmur, rub or gallop. ABDOMEN: Obese, soft, nontender, nondistended, normoactive bowel sounds, no guarding, no rebound, no hepatosplenomegaly, no masses. EXTREMITIES: RIGHT posterior aspect with [id number] abrasion/induration open to air , and mild edema, warm + tender to palpation. NO edema in RIGHT hand. 2+ pulses , warm, well-perfused, BL LE edema. NEUROLOGICAL: Cranial nerves III through XII grossly intact. Normal speech, gait not observed. PSYCH: Calm, demonstrating understanding of plan, expressing concern well SKIN: Many tattoos. Warm, dry, normal turgor, no rashes or lesions noted Laboratory Results - last 24 hr 11/29/18 11/29/18 08:25 08:25 WBC 7.3 RBC 5.84 H Hgb 12.9 Hct 41.3 MCV 70.7 L MCH 22.1 L MCHC 31.2 L RDW 16.0 H Plt Count 238 MPV 8.2 Absolute Neuts (auto) 5.2 Neutrophils % 71.8 Lymphocytes % 15.7 Monocytes % 10.2 Eosinophils % 1.9 Basophils % 0.4 Nucleated RBC % 0 Sodium 141 Potassium 4.5 Chloride 98 Carbon Dioxide 38 H Anion Gap 5 L BUN 18.3 H Creatinine 0.9 Est GFR (CKD-EPI)AfAm 107.22 Est GFR (CKD-EPI)NonAf 92.51 Random Glucose 62 L Calcium 8.6 Phosphorus 3.8 Magnesium 2.4 Total Bilirubin 0.5 AST 20 ALT 32 Alkaline Phosphatase 86 Total Protein 7.3 Albumin 3.3 L Active Medications Acetaminophen (Tylenol -) 650 mg PO Q6H PRN PRN Reason: PAIN Last Admin: 11/22/18 09:23 Dose: 650 mg Albuterol Sulfate (Ventolin Hfa Inhaler -) 2 puff IH Q4H PRN PRN Reason: SHORT OF BREATH/WHEEZING Last Admin: 11/24/18 03:44 Dose: 2 puff Albuterol Sulfate (Ventolin 0.083% Nebulizer Soln -) 1 amp NEB Q4H PRN PRN Reason: SHORT OF BREATH/WHEEZING Last Admin: 11/26/18 15:45 Dose: 1 amp Arformoterol Tartrate (Brovana (Restricted To Pulmonology/Resp) -) 1 amp NEB RBID [facility] Last Admin: 11/29/18 10:00 Dose: 1 amp Bacitracin (Bacitracin -) 1 applic TP DAILY [facility] Last Admin: 11/29/18 10:23 Dose: 1 applic Docusate Sodium (Colace -) 100 mg PO BID [facility] Last Admin: 11/29/18 10:21 Dose: Not Given Ferrous Sulfate (Feosol -) 325 mg PO BID [facility] Last Admin: 11/29/18 10:21 Dose: Not Given Furosemide (Lasix -) 20 mg PO DAILY [facility] Last Admin: 11/29/18 10:21 Dose: Not Given Piperacillin Sod/Tazobactam (Sod 3.375 gm/ Dextrose) 50 mls @ 100 mls/hr IVPB Q8H-IV JALYN; Protocol Last Admin: 11/29/18 10:23 Dose: 100 mls/hr Vancomycin HCl 1,500 mg/ (Dextrose) 500 mls @ 250 mls/hr IVPB BID@0000,1200 JALYN ; Protocol Last Admin: 11/29/18 12:11 Dose: 250 mls/hr Isosorbide Mononitrate (Imdur -) 60 mg PO HS [facility] Last Admin: 11/28/18 22:20 Dose: 60 mg Montelukast Sodium (Singulair -) 10 mg PO HS [facility] Last Admin: 11/28/18 22:20 Dose: 10 mg Prednisone (Deltasone -) 20 mg PO DAILY [facility] Last Admin: 11/29/18 10:22 Dose: 20 mg Tiotropium [place] (Spiriva Respimat) 2 puff IH DAILY [facility] Last Admin: 11/29/18 10:22 Dose: 2 puff ASSESSMENT/PLAN: 62 y/o F PMH chronic respiratory failure 2/2 COPD (on 2L home O2 via [place]), chronic diastolic CHF, HTN, GAY, BL LE lymphedema, presenting w RIGHT forearm erythema/pain/tenderness s/p trauma consistent with cellulitis. # RUE Cellulitis - Most improved clinical presentation this visit - Surgical team current plan: no surgery; will cont. with IV abx and ID recommendations - Afebrile and hemodynamically stable - Elbow Xray demonstrates soft tissue calcification, cannot r/o FB, air medial inferior soft tissues - Orthopedics evaluated - no intervention indicated - ID on board (Dr. Davenport) - Vanco 1,500 mg. - Vanco trough trough on 4th dose # H/o rectal stricture - GI on board (Dr. Jerez) - Colonoscopy to be performed out-pt # Chronic respiratory failure 2/2 COPD - No evidence of acute exacerbation on phys. exam - NEG CXR - Cont. prednisone 20mg, singulair - Bronchodilators PRN - 2L o2 NC - Pulm on board (Dr. Donohue) - Pt declines referral for pulmonary rehab # Chronic diastolic CHF - Not consistent w vol overload - No evidence of decompensation. - Cont. lasix. - Cont. Imdur (dose increased to 60mg as per cardio) - Cardiology on board (Dr. Restrepo) # GAY - Non-compliant with BiPAP - Refusing fitment in hospital #HTN - Cont. current regimen (imdur) # Microscopic hematuria - Asymptomatic - Refer to urology out-pt # Microcytic anemia - MCV 70.1 - Most likely 2/2 Fe deficiency - Pt provided stool sample - Pt refusing Fe treatment - Additional f/u out-pt # Chronic Venous Stasis/LE varicosities - Compression stocking - Anna Damon MD ATTENDING PHYSICIAN STATEMENT I saw and evaluated the patient. I reviewed the resident's note and discussed the case with the resident. I agree with the resident's findings and plan as documented. SUBJECTIVE: OBJECTIVE: ASSESSMENT AND PLAN:
--- NOTE | 2018-11-29 14:30 | PN ---
Progress Note, Physician History of Present Illness: stable no new issues hand looks better - Current Medication List Current Medications: Active Medications Acetaminophen (Tylenol -) 650 mg PO Q6H PRN PRN Reason: PAIN Last Admin: 11/22/18 09:23 Dose: 650 mg Albuterol Sulfate (Ventolin Hfa Inhaler -) 2 puff IH Q4H PRN PRN Reason: SHORT OF BREATH/WHEEZING Last Admin: 11/24/18 03:44 Dose: 2 puff Albuterol Sulfate (Ventolin 0.083% Nebulizer Soln -) 1 amp NEB Q4H PRN PRN Reason: SHORT OF BREATH/WHEEZING Last Admin: 11/26/18 15:45 Dose: 1 amp Arformoterol Tartrate (Brovana (Restricted To Pulmonology/Resp) -) 1 amp NEB RBID [facility] Last Admin: 11/29/18 10:00 Dose: 1 amp Bacitracin (Bacitracin -) 1 applic TP DAILY [facility] Last Admin: 11/29/18 10:23 Dose: 1 applic Docusate Sodium (Colace -) 100 mg PO BID [facility] Last Admin: 11/29/18 10:21 Dose: Not Given Ferrous Sulfate (Feosol -) 325 mg PO BID [facility] Last Admin: 11/29/18 10:21 Dose: Not Given Furosemide (Lasix -) 20 mg PO DAILY [facility] Last Admin: 11/29/18 10:21 Dose: Not Given Piperacillin Sod/Tazobactam (Sod 3.375 gm/ Dextrose) 50 mls @ 100 mls/hr IVPB Q8H-IV [facility]ALYN; Protocol Last Admin: 11/29/18 10:23 Dose: 100 mls/hr Vancomycin HCl 1,500 mg/ (Dextrose) 500 mls @ 250 mls/hr IVPB BID@0000,1200 [facility] ; Protocol Last Admin: 11/29/18 12:11 Dose: 250 mls/hr Isosorbide Mononitrate (Imdur -) 60 mg PO HS [facility] Last Admin: 11/28/18 22:20 Dose: 60 mg Montelukast Sodium (Singulair -) 10 mg PO HS [facility] Last Admin: 11/28/18 22:20 Dose: 10 mg Prednisone (Deltasone -) 20 mg PO DAILY [facility] Last Admin: 11/29/18 10:22 Dose: 20 mg Tiotropium [place] (Spiriva Respimat) 2 puff IH DAILY [facility] Last Admin: 11/29/18 10:22 Dose: 2 puff - Objective Vital Signs: Vital Signs Temperature 98.4 F 11/29/18 09:05 Pulse Rate 72 11/29/18 09:05 Respiratory Rate 20 11/29/18 09:05 Blood Pressure 116/80 11/29/18 09:05 O2 Sat by Pulse Oximetry (%) 95 11/28/18 21:00 Constitutional: Yes: No Distress, Calm Cardiovascular: Yes: S1, S2 Respiratory: Yes: Regular, CTA Bilaterally Gastrointestinal: Yes: Normal Bowel Sounds, Soft Musculoskeletal: Yes: Other Extremities: Yes: Erythema (of the hand), Other Neurological: Yes: Alert, Oriented Psychiatric: Yes: Alert, Oriented Labs: CBC, BMP 11/29/18 08:25 11/29/18 08:25 Assessment/Plan Problem List - Problem (1) Cellulitis Code(s): L03.90 - CELLULITIS, UNSPECIFIED (2) COPD (chronic obstructive pulmonary disease) Code(s): J44.9 - CHRONIC OBSTRUCTIVE PULMONARY DISEASE, UNSPECIFIED htn constipation plan continue abx now hand improving monitor levels of vanco and adjust vanco rest as per the team
--- NOTE | 2018-11-29 16:49 | PN ---
Teaching Attending Note Name of Resident: Claus Damon ATTENDING PHYSICIAN STATEMENT I saw and evaluated the patient. I reviewed the resident's note and discussed the case with the resident. I agree with the resident's findings and plan as documented. SUBJECTIVE:states arm is improving. denies CP, SOB, fever, chills, N/V/C/D OBJECTIVE: Last Vital Signs Temp Pulse Resp BP Pulse Ox 98.3 F 88 20 127/81 95 11/29/18 14:00 11/29/18 14:00 11/29/18 14:00 11/29/18 14:00 11/28/18 21:00 General NAD Extremities RUE swelling resolved. very small area of swelling adjacent to elbow. erythematous and warm. no tenderness. remainder of the arm looks normal. ASSESSMENT AND PLAN: 62 year old male with history of Obesity, Chronic Respiratory Failure sec to COPD (on 2L O2 via [place]), Chronic Diastolic CHF, Pulmonary HTN, MR, HTN, GAY, Bilateral LE Lymphedema, Hx osteomyelitis toe s/p 6 weeks Abx, presents with R forearm erythema/pain/tenderness after possibly sustaining an insect bite 3 days prior to admission. 1. Acute RUE Cellulitis- due to spider bite vs trauma to brick wall. clinically improved. vanco dose adjusted. check trough prior to 4th dose. since improving no indication for I&D. on vanco and zosyn. plan to continue another 48H. ID onboard. 2. Chronic Respiratory Failure secondary to COPD - Stable, no evidence of acute exacerbation. refusing bipap at bedtime. refusing further workup for his lungs. pulmonary on board. on low dose steroids chronically. 3. HTN/CAD with Hx occluded RCA/MR - seen by Cardio - continue Imdur (dose increased to 60mg as per Cardio). Further medication optimization as per Cardio. 4. Chronic Diastolic CHF - no evidence of decompensation. cont home medications 5. Microscopic Hematuria - asymptomatic. For out-patient follow up/Urology referral. 6. Hx of Rectal Stricture (reported by patient)- was planned to do colonoscopy but not cleared for procedure. will need to f/u outpatient. 7. Microcytic Anemia, MCV 69 - Iron deficiency, Iron Sat 12, likely sec to chronic blood loss anemia. GI consulted for further work-up. started on FeSo4 supplementation. 8. Chronic Venous Stasis/LE varicosities - TEDs, Lasix. 9. DVT Px - Lovenox SQ 10. will need several more days of IV abx. pt refusing to be transferred to SNF for iv abx
--- NOTE | 2018-11-29 17:37 | PN ---
Progress Note (short form) - Note Progress Note: PULMONARY Denies shortness of breath, cough or wheezing. Vital Signs Period Temp Pulse Resp BP Sys/Santiago Pulse Ox Last 24 Hr 97 F-98.4 F 68-88 18-20 113-134/73-87 95 Gen: NAD at rest Heart: RRR Lung: decreased breath sounds at the bases Abd: soft, nontender Ext: no edema CBC, BMP 11/29/18 08:25 11/29/18 08:25 Active Medications Acetaminophen (Tylenol -) 650 mg PO Q6H PRN PRN Reason: PAIN Last Admin: 11/22/18 09:23 Dose: 650 mg Albuterol Sulfate (Ventolin Hfa Inhaler -) 2 puff IH Q4H PRN PRN Reason: SHORT OF BREATH/WHEEZING Last Admin: 11/24/18 03:44 Dose: 2 puff Albuterol Sulfate (Ventolin 0.083% Nebulizer Soln -) 1 amp NEB Q4H PRN PRN Reason: SHORT OF BREATH/WHEEZING Last Admin: 11/26/18 15:45 Dose: 1 amp Arformoterol Tartrate (Brovana (Restricted To Pulmonology/Resp) -) 1 amp NEB RBID [facility] Last Admin: 11/29/18 10:00 Dose: 1 amp Bacitracin (Bacitracin -) 1 applic TP DAILY [facility] Last Admin: 11/29/18 10:23 Dose: 1 applic Docusate Sodium (Colace -) 100 mg PO BID [facility] Last Admin: 11/29/18 10:21 Dose: Not Given Ferrous Sulfate (Feosol -) 325 mg PO BID [facility] Last Admin: 11/29/18 10:21 Dose: Not Given Furosemide (Lasix -) 20 mg PO DAILY [facility] Last Admin: 11/29/18 10:21 Dose: Not Given Piperacillin Sod/Tazobactam (Sod 3.375 gm/ Dextrose) 50 mls @ 100 mls/hr IVPB Q8H-IV [facility]; Protocol Last Admin: 11/29/18 17:20 Dose: 100 mls/hr Vancomycin HCl 1,500 mg/ (Dextrose) 500 mls @ 250 mls/hr IVPB BID@0000,1200 [facility] ; Protocol Last Admin: 11/29/18 12:11 Dose: 250 mls/hr Isosorbide Mononitrate (Imdur -) 60 mg PO HS [facility] Last Admin: 11/28/18 22:20 Dose: 60 mg Montelukast Sodium (Singulair -) 10 mg PO HS [facility] Last Admin: 11/28/18 22:20 Dose: 10 mg Prednisone (Deltasone -) 20 mg PO DAILY [facility] Last Admin: 11/29/18 10:22 Dose: 20 mg Tiotropium [place] (Spiriva Respimat) 2 puff IH DAILY [facility] Last Admin: 11/29/18 10:22 Dose: 2 puff A/P Cellulitis Chronic Hypoxic and Hypercapneic Respiratory Failure COPD Morbid Obesity Severe GAY Pulmonary HTN - continue antibiotics per ID - O2 to keep SpO2 >90% - inhaled bronchodilators - pt refusing BiPAP - DVT prophylaxis
[2018-11-29] MEDS: ISOSORBIDE MONONITRATE 30 MG TAB.SR.24H (FP) PO SCH (22:04)
[2018-11-29] MEDS: MONTELUKAST NA 10 MG TABLET PO SCH (22:04)
[2018-11-30] MEDS: VANCOMYCIN HCL 1,500 MG in DEXTROSE 5%-WATER - 500 ML IVPB SCH ×2 (00:56→12:54)
[2018-11-30] MEDS ORDERED: PIPERACILLIN/TAZOBACTAM 3.375 GM VIAL IVPB ONE ×3 (01:23→18:08)
[2018-11-30] MEDS ORDERED: DEXTROSE 5%-WATER - 50 ML IVPB ONE ×3 (01:23→18:09)
[2018-11-30] MEDS: PIPERACILLIN/TAZOB 3.375 GM 3.375 GM in DEXTROSE 5%-WATER - 50 ML IVPB SCH ×3 (03:05→18:56)
[2018-11-30 08:42] LABS: BASO % 1.1 % (0-2.0); EOS % 2.4 % (0-4.5); HEMATOCRIT 42.9 % (35.4-49); HEMOGLOBIN 13.5 GM/dL (11.7-16.9); LYMPH % 14.3 % (8-40); MCH 22.1 pg (25.7-33.7); MCHC 31.5 g/dl (32.0-35.9); MEAN CELL VOLUME 70.4 fl (80-96); MEAN PLT VOLUME 7.9 fl (7.5-11.1); MONO % 7.6 % (3.8-10.2); NEUT % 74.6 % (42.8-82.8); PLATELET COUNT 234 K/MM3 (134-434); RDW 15.5 % (11.9-15.9); WHITE BLOOD COUNT 7.8 K/mm3 (4.0-10.0)
[2018-11-30] MEDS: ARFORMOTEROL TARTRATE 15 MCG/2 ML VIAL NEB SCH ×2 (09:00→23:00)
--- NOTE | 2018-11-30 09:13 | PN ---
Progress Note, Physician History of Present Illness: hand continues to improve erythema induration much better - Current Medication List Current Medications: Active Medications Acetaminophen (Tylenol -) 650 mg PO Q6H PRN PRN Reason: PAIN Last Admin: 11/22/18 09:23 Dose: 650 mg Albuterol Sulfate (Ventolin Hfa Inhaler -) 2 puff IH Q4H PRN PRN Reason: SHORT OF BREATH/WHEEZING Last Admin: 11/24/18 03:44 Dose: 2 puff Albuterol Sulfate (Ventolin 0.083% Nebulizer Soln -) 1 amp NEB Q4H PRN PRN Reason: SHORT OF BREATH/WHEEZING Last Admin: 11/26/18 15:45 Dose: 1 amp Arformoterol Tartrate (Brovana (Restricted To Pulmonology/Resp) -) 1 amp NEB RBID [facility] Last Admin: 11/30/18 09:00 Dose: 1 amp Bacitracin (Bacitracin -) 1 applic TP DAILY [facility] Last Admin: 11/29/18 10:23 Dose: 1 applic Docusate Sodium (Colace -) 100 mg PO BID [facility] Last Admin: 11/29/18 21:00 Dose: Not Given Ferrous Sulfate (Feosol -) 325 mg PO BID [facility] Last Admin: 11/29/18 21:00 Dose: Not Given Furosemide (Lasix -) 20 mg PO DAILY [facility] Last Admin: 11/29/18 10:21 Dose: Not Given Piperacillin Sod/Tazobactam (Sod 3.375 gm/ Dextrose) 50 mls @ 100 mls/hr IVPB Q8H-IV [facility]; Protocol Last Admin: 11/30/18 03:05 Dose: 100 mls/hr Vancomycin HCl 1,500 mg/ (Dextrose) 500 mls @ 250 mls/hr IVPB BID@0000,1200 [facility] ; Protocol Last Admin: 11/30/18 00:56 Dose: 250 mls/hr Isosorbide Mononitrate (Imdur -) 60 mg PO HS [facility] Last Admin: 11/29/18 22:04 Dose: 60 mg Montelukast Sodium (Singulair -) 10 mg PO HS [facility] Last Admin: 11/29/18 22:04 Dose: 10 mg Prednisone (Deltasone -) 20 mg PO DAILY [facility] Last Admin: 11/29/18 10:22 Dose: 20 mg Tiotropium [place] (Spiriva Respimat) 2 puff IH DAILY [facility] Last Admin: 11/29/18 10:22 Dose: 2 puff - Objective Vital Signs: Vital Signs Temperature 97.8 F 11/30/18 06:00 Pulse Rate 68 11/30/18 06:00 Respiratory Rate 20 11/30/18 06:00 Blood Pressure 123/79 11/30/18 06:00 O2 Sat by Pulse Oximetry (%) 96 11/29/18 21:00 Constitutional: Yes: No Distress, Calm Cardiovascular: Yes: S1, S2 Respiratory: Yes: Regular, CTA Bilaterally Gastrointestinal: Yes: Normal Bowel Sounds, Soft Musculoskeletal: Yes: Other Extremities: Yes: Erythema, Other Neurological: Yes: Alert, Oriented Psychiatric: Yes: Alert, Oriented Labs: CBC, BMP 11/30/18 08:15 Assessment/Plan Problem List - Problem (1) Cellulitis Code(s): L03.90 - CELLULITIS, UNSPECIFIED (2) COPD (chronic obstructive pulmonary disease) Code(s): J44.9 - CHRONIC OBSTRUCTIVE PULMONARY DISEASE, UNSPECIFIED htn constipation plan continue abx rest as per the team
[2018-11-30 09:16] LABS: ALBUMIN 3.4 g/dl (3.4-5.0); BILIRUBIN,TOTAL 0.5 mg/dL (0.2-1); BLOOD UREA NITROGEN 16.4 mg/dL (7-18); CALCIUM 8.8 mg/dL (8.5-10.1); MAGNESIUM 2.1 mg/dL (1.8-2.4); PHOSPHOROUS 3.2 mg/dL (2.5-4.9); POTASSIUM 4.5 mmol/L (3.5-5.1); TOT PROT 7.2 g/dl (6.4-8.2)
[2018-11-30] MEDS: BACITRACIN 15 GM TUBE TOPICAL OINTMENT TP SCH (10:51)
[2018-11-30] MEDS: FUROSEMIDE 20 MG TABLET (FP) PO SCH (10:51)
[2018-11-30] MEDS: DOCUSATE SODIUM 100 MG CAPSULE (FP) PO SCH ×2 (10:51→22:21)
[2018-11-30] MEDS: predniSONE 10 MG TABLET (UD) PO SCH (10:51)
[2018-11-30] MEDS: FERROUS SO4 325 MG TABLET (FP) PO SCH ×3 (10:51→22:22)
[2018-11-30] MEDS: TIOTROPIUM BROMIDE 2.5 MCG (SPIRIVA) RESPIMAT INHALER IH SCH (10:51)
--- NOTE | 2018-11-30 11:44 | PN ---
Physical Exam: SUBJECTIVE: 62 y/o M w PMH COPD (on 2L home o2), chronic diastolic CHF, HTN, GAY , BL LE lymphedema whom presented to the ED w c/o forearm redness and pain and a second concern of SOB, LINDSEY 10. Today, the pt reports continued relief/ improvement of his swelling/redness/tenderness. He says his RIGHT arm only has pain at single point, upon pressing it and otherwise has no complaints. He reports less redness, swelling, and pain. SOB is back to his baseline. He denies fever, chills, and bleeding. Pt presently reports no CP, no fever, no chills, and no NVFD. OBJECTIVE: Vital Signs Temp Pulse Resp BP Pulse Ox 97.8 F 68 20 123/79 96 11/30/18 06:00 11/30/18 06:00 11/30/18 06:00 11/30/18 06:00 11/29/18 21:00 GENERAL: The patient is awake, alert, and fully oriented x3. Pt sitting at side of bed throughout exam, sitting upright, eating breakfast. Pt on nasal canula. HEAD: Normal with no signs of trauma EYES: TAMMIE, EOMI, sclera anicteric, conjunctiva clear. No ptosis. ENT: Ears normal, nares patent, moist mucous membranes. NECK: Trachea midline, full range of motion, supple. LUNGS: Lungs CTAB with wheezes at the left bases consistent w baseline, no other adventitious sounds. HEART: Regular rate and rhythm, S1, S2 without murmur, rub or gallop. ABDOMEN: Obese, soft, nontender, nondistended, normoactive bowel sounds, no guarding, no rebound, no hepatosplenomegaly, no masses. EXTREMITIES: RIGHT posterior aspect with [id number] abrasion/induration, no edema, warm + tender to palpation. NO edema in RIGHT hand. 2+ pulses, warm, well- perfused, BL LE edema. NEUROLOGICAL: Cranial nerves III through XII grossly intact. Normal speech, gait not observed. PSYCH: Calm, demonstrating understanding of plan, expressing concern well SKIN: Many tattoos. Warm, dry, normal turgor, no rashes or lesions noted Laboratory Results - last 24 hr 11/29/18 11/30/18 11/30/18 23:45 08:15 08:15 WBC 7.8 RBC 6.10 H Hgb 13.5 Hct 42.9 MCV 70.4 L MCH 22.1 L MCHC 31.5 L RDW 15.5 Plt Count 234 MPV 7.9 Absolute Neuts (auto) 5.8 Neutrophils % 74.6 Lymphocytes % 14.3 Monocytes % 7.6 Eosinophils % 2.4 Basophils % 1.1 Nucleated RBC % 0 Sodium 138 Potassium 4.5 Chloride 99 Carbon Dioxide 32 Anion Gap 7 L BUN 16.4 Creatinine 1.0 Est GFR (CKD-EPI)AfAm 94.39 Est GFR (CKD-EPI)NonAf 81.44 Random Glucose 115 H Calcium 8.8 Phosphorus 3.2 Magnesium 2.1 Total Bilirubin 0.5 AST 24 ALT 34 Alkaline Phosphatase 79 Total Protein 7.2 Albumin 3.4 Vancomycin Pre-Dose 17.0 L Active Medications Acetaminophen (Tylenol -) 650 mg PO Q6H PRN PRN Reason: PAIN Last Admin: 11/22/18 09:23 Dose: 650 mg Albuterol Sulfate (Ventolin Hfa Inhaler -) 2 puff IH Q4H PRN PRN Reason: SHORT OF BREATH/WHEEZING Last Admin: 11/24/18 03:44 Dose: 2 puff Albuterol Sulfate (Ventolin 0.083% Nebulizer Soln -) 1 amp NEB Q4H PRN PRN Reason: SHORT OF BREATH/WHEEZING Last Admin: 11/26/18 15:45 Dose: 1 amp Arformoterol Tartrate (Brovana (Restricted To Pulmonology/Resp) -) 1 amp NEB RBID [facility] Last Admin: 11/30/18 09:00 Dose: 1 amp Bacitracin (Bacitracin -) 1 applic TP DAILY [facility] Last Admin: 11/30/18 10:51 Dose: Not Given Docusate Sodium (Colace -) 100 mg PO BID [facility] Last Admin: 11/30/18 10:51 Dose: Not Given Ferrous Sulfate (Feosol -) 325 mg PO BID [facility] Last Admin: 11/30/18 10:53 Dose: Not Given Furosemide (Lasix -) 20 mg PO DAILY [facility] Last Admin: 11/30/18 10:51 Dose: Not Given Piperacillin Sod/Tazobactam (Sod 3.375 gm/ Dextrose) 50 mls @ 100 mls/hr IVPB Q8H-IV [facility]; Protocol Last Admin: 11/30/18 10:50 Dose: 100 mls/hr Vancomycin HCl 1,500 mg/ (Dextrose) 500 mls @ 250 mls/hr IVPB BID@0000,1200 [facility] ; Protocol Last Admin: 11/30/18 00:56 Dose: 250 mls/hr Isosorbide Mononitrate (Imdur -) 60 mg PO HS [facility] Last Admin: 11/29/18 22:04 Dose: 60 mg Montelukast Sodium (Singulair -) 10 mg PO HS [facility] Last Admin: 11/29/18 22:04 Dose: 10 mg Prednisone (Deltasone -) 20 mg PO DAILY [facility] Last Admin: 11/30/18 10:51 Dose: 20 mg Tiotropium [place] (Spiriva Respimat) 2 puff IH DAILY [facility] Last Admin: 11/30/18 10:51 Dose: 2 puff ASSESSMENT/PLAN: 62 y/o F PMH chronic respiratory failure 2/2 COPD (on 2L home O2 via [place]), chronic diastolic CHF, HTN, GAY, BL LE lymphedema, presenting w RIGHT forearm erythema/pain/tenderness s/p trauma consistent with cellulitis. # RUE Cellulitis - Most improved clinical presentation this visit - Surgical team current plan: no surgery; will cont. with IV abx and ID recommendations - Afebrile and hemodynamically stable - Elbow Xray demonstrates soft tissue calcification, cannot r/o FB, air medial inferior soft tissues - Orthopedics evaluated - no intervention indicated - ID on board (Dr. Davenport) - Vanco and zosyn. Poss switch to PO in next 24-48H - Vanco 1,500 mg - Vanco trough 17 # H/o rectal stricture - GI on board (Dr. Jerez) - Colonoscopy to be performed out-pt # Chronic respiratory failure 2/2 COPD - No evidence of acute exacerbation on phys. exam - NEG CXR - Cont. prednisone 20mg, singulair - Bronchodilators PRN - 2L o2 NC - Pulm on board (Dr. Donohue) - Pt declines referral for pulmonary rehab # Chronic diastolic CHF - Not consistent w vol overload - No evidence of decompensation. - Cont. lasix. - Cont. Imdur (dose increased to 60mg as per cardio) - Cardiology on board (Dr. Restrepo) # GAY - Non-compliant with BiPAP - Refusing fitment in hospital #HTN - Cont. current regimen (imdur) # Microscopic hematuria - Asymptomatic - Refer to urology out-pt # Microcytic anemia - MCV 70.1 - Most likely 2/2 Fe deficiency - Pt provided stool sample - Pt refusing Fe treatment - Additional f/u out-pt # Chronic Venous Stasis/LE varicosities - Compression stocking - Anna Damon MD ATTENDING PHYSICIAN STATEMENT I saw and evaluated the patient. I reviewed the resident's note and discussed the case with the resident. I agree with the resident's findings and plan as documented. SUBJECTIVE: OBJECTIVE: ASSESSMENT AND PLAN:
--- NOTE | 2018-11-30 12:31 | PN ---
Teaching Attending Note Name of Resident: Claus Damon ATTENDING PHYSICIAN STATEMENT I saw and evaluated the patient. I reviewed the resident's note and discussed the case with the resident. I agree with the resident's findings and plan as documented. SUBJECTIVE:reports arm much improved. denies Cp, SOB, fever, chills, N/V/C/D OBJECTIVE: Last Vital Signs Temp Pulse Resp BP Pulse Ox 97.8 F 68 20 123/79 96 11/30/18 06:00 11/30/18 06:00 11/30/18 06:00 11/30/18 06:00 11/29/18 21:00 General NAD Extremities RUE swelling resolved. very small area of swelling adjacent to elbow. erythematous. no warmth or tenderness. remainder of the arm looks normal. ASSESSMENT AND PLAN: 62 year old male with history of Obesity, Chronic Respiratory Failure sec to COPD (on 2L O2 via NC), Chronic Diastolic CHF, Pulmonary HTN, MR, HTN, GAY, Bilateral LE Lymphedema, Hx osteomyelitis toe s/p 6 weeks Abx, presents with R forearm erythema/pain/tenderness after possibly sustaining an insect bite 3 days prior to admission. 1. Acute RUE Cellulitis- due to spider bite vs trauma to brick wall. clinically improved. on vanco and zosyn. can likely switch to po in in next 24-48H. ID onboard. 2. Chronic Respiratory Failure secondary to COPD - Stable, no evidence of acute exacerbation. refusing bipap at bedtime. refusing further workup for his lungs. pulmonary on board. on low dose steroids chronically. 3. HTN/CAD with Hx occluded RCA/MR - seen by Cardio - continue Imdur (dose increased to 60mg as per Cardio). Further medication optimization as per Cardio. 4. Chronic Diastolic CHF - no evidence of decompensation. cont home medications 5. Microscopic Hematuria - asymptomatic. For out-patient follow up/Urology referral. 6. Hx of Rectal Stricture (reported by patient)- was planned to do colonoscopy but not cleared for procedure. will need to f/u outpatient. 7. Microcytic Anemia, MCV 69 - Iron deficiency, Iron Sat 12, likely sec to chronic blood loss anemia. GI consulted for further work-up. started on FeSo4 supplementation. 8. Chronic Venous Stasis/LE varicosities - TEDs, Lasix. 9. DVT Px - Lovenox SQ 10.anticipate discharge in next 24-48H when can convert to po
--- NOTE | 2018-11-30 13:42 | PN ---
Progress Note, Physician History of Present Illness: pulmonary alert,comfortable,-resp distress,r arm swelling and erythema improving - Current Medication List Current Medications: Active Medications Acetaminophen (Tylenol -) 650 mg PO Q6H PRN PRN Reason: PAIN Last Admin: 11/22/18 09:23 Dose: 650 mg Albuterol Sulfate (Ventolin Hfa Inhaler -) 2 puff IH Q4H PRN PRN Reason: SHORT OF BREATH/WHEEZING Last Admin: 11/24/18 03:44 Dose: 2 puff Albuterol Sulfate (Ventolin 0.083% Nebulizer Soln -) 1 amp NEB Q4H PRN PRN Reason: SHORT OF BREATH/WHEEZING Last Admin: 11/26/18 15:45 Dose: 1 amp Arformoterol Tartrate (Brovana (Restricted To Pulmonology/Resp) -) 1 amp NEB RBID [facility] Last Admin: 11/30/18 09:00 Dose: 1 amp Bacitracin (Bacitracin -) 1 applic TP DAILY [facility] Last Admin: 11/30/18 10:51 Dose: Not Given Docusate Sodium (Colace -) 100 mg PO BID [facility] Last Admin: 11/30/18 10:51 Dose: Not Given Ferrous Sulfate (Feosol -) 325 mg PO BID [facility] Last Admin: 11/30/18 10:53 Dose: Not Given Furosemide (Lasix -) 20 mg PO DAILY [facility] Last Admin: 11/30/18 10:51 Dose: Not Given Piperacillin Sod/Tazobactam (Sod 3.375 gm/ Dextrose) 50 mls @ 100 mls/hr IVPB Q8H-IV [facility]; Protocol Last Admin: 11/30/18 10:50 Dose: 100 mls/hr Vancomycin HCl 1,500 mg/ (Dextrose) 500 mls @ 250 mls/hr IVPB BID@0000,1200 [facility] ; Protocol Last Admin: 11/30/18 12:54 Dose: 250 mls/hr Isosorbide Mononitrate (Imdur -) 60 mg PO HS [facility] Last Admin: 11/29/18 22:04 Dose: 60 mg Montelukast Sodium (Singulair -) 10 mg PO HS [facility] Last Admin: 11/29/18 22:04 Dose: 10 mg Prednisone (Deltasone -) 20 mg PO DAILY [facility] Last Admin: 11/30/18 10:51 Dose: 20 mg Tiotropium [place] (Spiriva Respimat) 2 puff IH DAILY [facility] Last Admin: 11/30/18 10:51 Dose: 2 puff - Objective Vital Signs: Vital Signs Temperature 97.8 F 11/30/18 06:00 Pulse Rate 68 11/30/18 06:00 Respiratory Rate 20 11/30/18 06:00 Blood Pressure 123/79 11/30/18 06:00 O2 Sat by Pulse Oximetry (%) 96 11/29/18 21:00 Constitutional: Yes: Well Nourished, Obese Eyes: Yes: WNL HENT: Yes: WNL Neck: Yes: WNL Cardiovascular: Yes: Regular Rate and Rhythm, S1, S2 Respiratory: Yes: Diminished Gastrointestinal: Yes: Normal Bowel Sounds, Soft Extremities: Yes: Erythema, Other (less swelling and erythema r arm) Edema: Yes Labs: CBC, BMP 11/30/18 08:15 11/30/18 08:15 Problem List - Problems (1) Sleep apnea Code(s): G47.30 - SLEEP APNEA, UNSPECIFIED (2) Cellulitis Code(s): L03.90 - CELLULITIS, UNSPECIFIED (3) COPD (chronic obstructive pulmonary disease) Code(s): J44.9 - CHRONIC OBSTRUCTIVE PULMONARY DISEASE, UNSPECIFIED (4) Idiopathic chronic venous hypertension of both lower extremities with ulcer and inflammation Code(s): I87.333 - CHRONIC VENOUS HTN W ULCER AND INFLAM OF BILATERAL LOW EXTRM ; L97.919 - NON-PRS CHRONIC ULC UNSP PRT OF R LOW LEG W UNSP SEVERITY; L97.929 - NON-PRS CHRONIC ULC UNSP PRT OF L LOW LEG W UNSP SEVERITY (5) Lymph edema Code(s): I89.0 - LYMPHEDEMA, NOT ELSEWHERE CLASSIFIED (6) Venous insufficiency of both lower extremities Code(s): I87.2 - VENOUS INSUFFICIENCY (CHRONIC) (PERIPHERAL) (7) CAD (coronary artery disease) Code(s): I25.10 - ATHSCL HEART DISEASE OF [place] CORONARY ARTERY W/O ANG PCTRS (8) Morbid obesity Code(s): E66.01 - MORBID (SEVERE) OBESITY DUE TO EXCESS CALORIES (9) Pulmonary HTN Code(s): I27.20 - PULMONARY HYPERTENSION, UNSPECIFIED (10) Cellulitis Code(s): L03.90 - CELLULITIS, UNSPECIFIED (11) Chronic respiratory failure with hypoxia and hypercapnia Code(s): J96.11 - CHRONIC RESPIRATORY FAILURE WITH HYPOXIA; J96.12 - CHRONIC RESPIRATORY FAILURE WITH HYPERCAPNIA Assessment/Plan IMP ADVANCED COPD O2 DEPENDENT WITH CHRONIC HYPOXEMIC/HYPERCAPNEIC RESPIRATORY FAILURE CLINICALLY IMPROVING PULMONARY HTN SEVERE OSAS NOT COMPLIANT WITH CPAP ASHD CELLULITIS IMPROVING MORBID OBESITY PLAN INHALED BRONCHODILATORS O2 BIPAP AT NIGHT PT REFUSES ABX PER ID DR MCPHERSON Problem List - Problems (1) Sleep apnea Code(s): G47.30 - SLEEP APNEA, UNSPECIFIED (2) Cellulitis Code(s): L03.90 - CELLULITIS, UNSPECIFIED (3) COPD (chronic obstructive pulmonary disease) Code(s): J44.9 - CHRONIC OBSTRUCTIVE PULMONARY DISEASE, UNSPECIFIED (4) Idiopathic chronic venous hypertension of both lower extremities with ulcer and inflammation Code(s): I87.333 - CHRONIC VENOUS HTN W ULCER AND INFLAM OF BILATERAL LOW EXTRM ; L97.919 - NON-PRS CHRONIC ULC UNSP PRT OF R LOW LEG W UNSP SEVERITY; L97.929 - NON-PRS CHRONIC ULC UNSP PRT OF L LOW LEG W UNSP SEVERITY (5) Lymph edema Code(s): I89.0 - LYMPHEDEMA, NOT ELSEWHERE CLASSIFIED (6) Venous insufficiency of both lower extremities Code(s): I87.2 - VENOUS INSUFFICIENCY (CHRONIC) (PERIPHERAL) (7) CAD (coronary artery disease) Code(s): I25.10 - ATHSCL HEART DISEASE OF [place] CORONARY ARTERY W/O ANG PCTRS (8) Morbid obesity Code(s): E66.01 - MORBID (SEVERE) OBESITY DUE TO EXCESS CALORIES (9) Pulmonary HTN Code(s): I27.20 - PULMONARY HYPERTENSION, UNSPECIFIED (10) Cellulitis Code(s): L03.90 - CELLULITIS, UNSPECIFIED (11) Chronic respiratory failure with hypoxia and hypercapnia Code(s): J96.11 - CHRONIC RESPIRATORY FAILURE WITH HYPOXIA; J96.12 - CHRONIC RESPIRATORY FAILURE WITH HYPERCAPNIA
--- NOTE | 2018-11-30 13:53 | PN ---
Progress Note (short form) - Note Progress Note: Attending Surgeon Seen in f/u; states he feels better VSS AF RUE-soft; no erythema no fluctuance; marked interval improvement IMP: impoved soft tissue infection PLAN: As per primary team and ID. Lawrence Chase MD FACS
--- NOTE | 2018-11-30 15:39 | PN ---
Progress Note (short form) - Note Progress Note: s: stable dyspnea on exertion. no chest pain, palps, dizziness Current Medications Acetaminophen (Tylenol -) 650 mg PO Q6H PRN PRN Reason: PAIN Last Admin: 11/22/18 09:23 Dose: 650 mg Albuterol Sulfate (Ventolin Hfa Inhaler -) 2 puff IH Q4H PRN PRN Reason: SHORT OF BREATH/WHEEZING Last Admin: 11/24/18 03:44 Dose: 2 puff Albuterol Sulfate (Ventolin 0.083% Nebulizer Soln -) 1 amp NEB Q4H PRN PRN Reason: SHORT OF BREATH/WHEEZING Last Admin: 11/26/18 15:45 Dose: 1 amp Arformoterol Tartrate (Brovana (Restricted To Pulmonology/Resp) -) 1 amp NEB RBID [facility] Last Admin: 11/30/18 09:00 Dose: 1 amp Bacitracin (Bacitracin -) 1 applic TP DAILY [facility] Last Admin: 11/30/18 10:51 Dose: Not Given Docusate Sodium (Colace -) 100 mg PO BID [facility] Last Admin: 11/30/18 10:51 Dose: Not Given Ferrous Sulfate (Feosol -) 325 mg PO BID [facility] Last Admin: 11/30/18 10:53 Dose: Not Given Furosemide (Lasix -) 20 mg PO DAILY [facility] Last Admin: 11/30/18 10:51 Dose: Not Given Piperacillin Sod/Tazobactam (Sod 3.375 gm/ Dextrose) 50 mls @ 100 mls/hr IVPB Q8H-IV [facility]; Protocol Last Admin: 11/30/18 10:50 Dose: 100 mls/hr Vancomycin HCl 1,500 mg/ (Dextrose) 500 mls @ 250 mls/hr IVPB BID@0000,1200 [facility] ; Protocol Last Admin: 11/30/18 12:54 Dose: 250 mls/hr Isosorbide Mononitrate (Imdur -) 60 mg PO HS [facility] Last Admin: 11/29/18 22:04 Dose: 60 mg Montelukast Sodium (Singulair -) 10 mg PO HS [facility] Last Admin: 11/29/18 22:04 Dose: 10 mg Prednisone (Deltasone -) 20 mg PO DAILY [facility] Last Admin: 11/30/18 10:51 Dose: 20 mg Tiotropium [place] (Spiriva Respimat) 2 puff IH DAILY [facility] Last Admin: 11/30/18 10:51 Dose: 2 puff Vital Signs Period Temp Pulse Resp BP Sys/[place] Pulse Ox Last 24 Hr 97.8 F-98.3 F 68-88 20-20 123-131/71-81 96 Neck: Supple, No JVD. Heart: PMI was not localized. Slight left parasternal and substernal heave. Grade III/ decrescendo systolic murmur was heard along the left sternal border and apex, that radiated towards the left axilla. A grade II/ ejection systolic murmur was heard at the second right intercostal space and left sternal border. Murmur ended in [id number] systole. No diastolic murmur or gallops were heard. Lungs: Bilateral scattered crepitations and wheezing. There were decreased breath sounds at both bases. Chest: Slight increased AP diameter. Expansion grossly appeared symmetrical. Abdomen: Morbidly obese, soft, and nontender. No hepatosplenomegaly or palpable masses were felt. There was a small, reducible umbilical hernia, a possible small hypogastric hernia. Extremities: Compression stocking on the left lower extremity. Patient does not want it removed. The right foot has been bandaged. Left lower extremity has brawny edema. Right upper extremity including the elbow is swollen, remains mild to moderately hyperemic. no jaundice diaphoresis IMPRESSION: 1. Coronary artery disease, history of [employer] (coronary total occlusion) of the right coronary artery, angina pectoris with recent recurrence. 2. Advanced oxygen-dependent chronic obstructive pulmonary disease. 3. Hypertension, hypertensive cardiovascular disease. 4. Systolic murmur compatible with mitral regurgitation. 5. Aortic valvular disease, most likely aortic sclerosis 7. Cellulitis of the right upper extremity 9. Congestive heart failure 10. Obstructive sleep apnea syndrome. 11. Morbid obesity. 12. Bilateral lower extremity varicose veins and chronic stasis changes. 13. Pulmonary hypertension. RECOMMENDATIONS: 1. Continue current cardiac medications. Cont po lasix. 2. If chest pains were to occur titrate Imdur to a maximum of 120mg PO daily - cont current dose, no chest pain. 3. Abx per pmd/ID for cellulitis
[2018-11-30] MEDS: ISOSORBIDE MONONITRATE 30 MG TAB.SR.24H (FP) PO SCH (22:21)
[2018-11-30] MEDS: MONTELUKAST NA 10 MG TABLET PO SCH (22:21)
[2018-12-01] MEDS ORDERED: PIPERACILLIN/TAZOBACTAM 3.375 GM VIAL IVPB ONE ×2 (01:37→10:17)
[2018-12-01] MEDS ORDERED: DEXTROSE 5%-WATER - 50 ML IVPB ONE ×2 (01:37→10:17)
[2018-12-01] MEDS ORDERED: PT OWN MED DRAWER 7, Y5N ONE (01:37)
[2018-12-01] MEDS: VANCOMYCIN HCL 1,500 MG in DEXTROSE 5%-WATER - 500 ML IVPB SCH ×2 (04:04→13:02)
[2018-12-01] MEDS: PIPERACILLIN/TAZOB 3.375 GM 3.375 GM in DEXTROSE 5%-WATER - 50 ML IVPB SCH ×2 (05:45→10:22)
[2018-12-01 08:00] LABS: BASO % 0.9 % (0-2.0); EOS % 1.5 % (0-4.5); HEMATOCRIT 41.6 % (35.4-49); HEMOGLOBIN 13.1 GM/dL (11.7-16.9); LYMPH % 15.2 % (8-40); MCH 22.1 pg (25.7-33.7); MCHC 31.5 g/dl (32.0-35.9); MEAN CELL VOLUME 70.2 fl (80-96); MONO % 10.8 % (3.8-10.2); NEUT % 71.6 % (42.8-82.8); PLATELET COUNT 228 K/MM3 (134-434); RBC 5.93 M/mm3 (4.00-5.60); RDW 15.9 % (11.9-15.9); WHITE BLOOD COUNT 8.2 K/mm3 (4.0-10.0)
[2018-12-01] MEDS: ARFORMOTEROL TARTRATE 15 MCG/2 ML VIAL NEB SCH (08:19)
[2018-12-01 08:26] LABS: ALBUMIN 3.3 g/dl (3.4-5.0); BILIRUBIN,TOTAL 0.3 mg/dL (0.2-1); BLOOD UREA NITROGEN 13.3 mg/dL (7-18); CALCIUM 8.6 mg/dL (8.5-10.1); CREATININE 0.9 mg/dL (0.55-1.3); MAGNESIUM 2.3 mg/dL (1.8-2.4); PHOSPHOROUS 3.4 mg/dL (2.5-4.9); POTASSIUM 4.2 mmol/L (3.5-5.1); TOT PROT 6.9 g/dl (6.4-8.2)
[2018-12-01] MEDS: predniSONE 10 MG TABLET (UD) PO SCH (10:22)
[2018-12-01] MEDS: FUROSEMIDE 20 MG TABLET (FP) PO SCH (10:23)
[2018-12-01] MEDS: DOCUSATE SODIUM 100 MG CAPSULE (FP) PO SCH (10:23)
[2018-12-01] MEDS: FERROUS SO4 325 MG TABLET (FP) PO SCH (10:23)
[2018-12-01] MEDS: TIOTROPIUM BROMIDE 2.5 MCG (SPIRIVA) RESPIMAT INHALER IH SCH (10:24)
[2018-12-01] MEDS: BACITRACIN 15 GM TUBE TOPICAL OINTMENT TP SCH (10:24)
--- NOTE | 2018-12-01 10:28 | PN ---
Progress Note, Physician History of Present Illness: PULMONARY ALERT,NO DISTRESS,+ ECHOLS,RUE SWELLING AND ERYTHEMA IMPROVING - Current Medication List Current Medications: Active Medications Acetaminophen (Tylenol -) 650 mg PO Q6H PRN PRN Reason: PAIN Last Admin: 11/22/18 09:23 Dose: 650 mg Albuterol Sulfate (Ventolin Hfa Inhaler -) 2 puff IH Q4H PRN PRN Reason: SHORT OF BREATH/WHEEZING Last Admin: 11/24/18 03:44 Dose: 2 puff Albuterol Sulfate (Ventolin 0.083% Nebulizer Soln -) 1 amp NEB Q4H PRN PRN Reason: SHORT OF BREATH/WHEEZING Last Admin: 11/26/18 15:45 Dose: 1 amp Arformoterol Tartrate (Brovana (Restricted To Pulmonology/Resp) -) 1 amp NEB RBID [facility] Last Admin: 12/01/18 08:19 Dose: 1 amp Bacitracin (Bacitracin -) 1 applic TP DAILY [facility] Last Admin: 11/30/18 10:51 Dose: Not Given Docusate Sodium (Colace -) 100 mg PO BID [facility] Last Admin: 11/30/18 22:21 Dose: Not Given Ferrous Sulfate (Feosol -) 325 mg PO BID [facility] Last Admin: 11/30/18 22:22 Dose: Not Given Furosemide (Lasix -) 20 mg PO DAILY [facility] Last Admin: 11/30/18 10:51 Dose: Not Given Piperacillin Sod/Tazobactam (Sod 3.375 gm/ Dextrose) 50 mls @ 100 mls/hr IVPB Q8H-IV [facility]; Protocol Last Admin: 12/01/18 05:45 Dose: 100 mls/hr Vancomycin HCl 1,500 mg/ (Dextrose) 500 mls @ 250 mls/hr IVPB BID@0000,1200 [facility] ; Protocol Last Admin: 12/01/18 04:04 Dose: 250 mls/hr Isosorbide Mononitrate (Imdur -) 60 mg PO [facility] Last Admin: 11/30/18 22:21 Dose: 60 mg Montelukast Sodium (Singulair -) 10 mg PO HS [facility] Last Admin: 11/30/18 22:21 Dose: 10 mg Prednisone (Deltasone -) 20 mg PO DAILY [facility] Last Admin: 11/30/18 10:51 Dose: 20 mg Tiotropium [place] (Spiriva Respimat) 2 puff IH DAILY [facility] Last Admin: 11/30/18 10:51 Dose: 2 puff - Objective Vital Signs: Vital Signs Temperature 97.6 F 12/01/18 06:07 Pulse Rate 68 12/01/18 06:07 Respiratory Rate 20 12/01/18 06:07 Blood Pressure 112/76 12/01/18 06:07 O2 Sat by Pulse Oximetry (%) 97 11/30/18 21:00 Constitutional: Yes: Well Nourished, Obese Eyes: Yes: WNL HENT: Yes: WNL Neck: Yes: WNL Cardiovascular: Yes: Regular Rate and Rhythm, S1, S2 Respiratory: Yes: CTA Bilaterally Gastrointestinal: Yes: Normal Bowel Sounds, Soft Extremities: Yes: Other (LESS ERYTHEMA,SWELLING RUE) Edema: Yes Labs: CBC, BMP 12/01/18 06:40 12/01/18 06:40 Problem List - Problems (1) Sleep apnea Code(s): G47.30 - SLEEP APNEA, UNSPECIFIED (2) Cellulitis Code(s): L03.90 - CELLULITIS, UNSPECIFIED (3) COPD (chronic obstructive pulmonary disease) Code(s): J44.9 - CHRONIC OBSTRUCTIVE PULMONARY DISEASE, UNSPECIFIED (4) Idiopathic chronic venous hypertension of both lower extremities with ulcer and inflammation Code(s): I87.333 - CHRONIC VENOUS HTN W ULCER AND INFLAM OF BILATERAL LOW EXTRM ; L97.919 - NON-PRS CHRONIC ULC UNSP PRT OF R LOW LEG W UNSP SEVERITY; L97.929 - NON-PRS CHRONIC ULC UNSP PRT OF L LOW LEG W UNSP SEVERITY (5) Lymph edema Code(s): I89.0 - LYMPHEDEMA, NOT ELSEWHERE CLASSIFIED (6) Venous insufficiency of both lower extremities Code(s): I87.2 - VENOUS INSUFFICIENCY (CHRONIC) (PERIPHERAL) (7) CAD (coronary artery disease) Code(s): I25.10 - ATHSCL HEART DISEASE OF [place] CORONARY ARTERY W/O ANG PCTRS (8) Morbid obesity Code(s): E66.01 - MORBID (SEVERE) OBESITY DUE TO EXCESS CALORIES (9) Pulmonary HTN Code(s): I27.20 - PULMONARY HYPERTENSION, UNSPECIFIED (10) Cellulitis Code(s): L03.90 - CELLULITIS, UNSPECIFIED (11) Chronic respiratory failure with hypoxia and hypercapnia Code(s): J96.11 - CHRONIC RESPIRATORY FAILURE WITH HYPOXIA; J96.12 - CHRONIC RESPIRATORY FAILURE WITH HYPERCAPNIA Assessment/Plan IMP ADVANCED COPD O2 DEPENDENT WITH CHRONIC HYPOXEMIC/HYPERCAPNEIC RESPIRATORY FAILURE CLINICALLY IMPROVING PULMONARY HTN SEVERE OSAS NOT COMPLIANT WITH CPAP ASHD CELLULITIS IMPROVING MORBID OBESITY PLAN INHALED BRONCHODILATORS O2 BIPAP AT NIGHT PT REFUSES ABX PER ID DR MCPHERSON Problem List - Problems (1) Sleep apnea Code(s): G47.30 - SLEEP APNEA, UNSPECIFIED (2) Cellulitis Code(s): L03.90 - CELLULITIS, UNSPECIFIED (3) COPD (chronic obstructive pulmonary disease) Code(s): J44.9 - CHRONIC OBSTRUCTIVE PULMONARY DISEASE, UNSPECIFIED (4) Idiopathic chronic venous hypertension of both lower extremities with ulcer and inflammation Code(s): I87.333 - CHRONIC VENOUS HTN W ULCER AND INFLAM OF BILATERAL LOW EXTRM ; L97.919 - NON-PRS CHRONIC ULC UNSP PRT OF R LOW LEG W UNSP SEVERITY; L97.929 - NON-PRS CHRONIC ULC UNSP PRT OF L LOW LEG W UNSP SEVERITY (5) Lymph edema Code(s): I89.0 - LYMPHEDEMA, NOT ELSEWHERE CLASSIFIED (6) Venous insufficiency of both lower extremities Code(s): I87.2 - VENOUS INSUFFICIENCY (CHRONIC) (PERIPHERAL) (7) CAD (coronary artery disease) Code(s): I25.10 - ATHSCL HEART DISEASE OF [place] CORONARY ARTERY W/O ANG PCTRS (8) Morbid obesity Code(s): E66.01 - MORBID (SEVERE) OBESITY DUE TO EXCESS CALORIES (9) Pulmonary HTN Code(s): I27.20 - PULMONARY HYPERTENSION, UNSPECIFIED (10) Cellulitis Code(s): L03.90 - CELLULITIS, UNSPECIFIED (11) Chronic respiratory failure with hypoxia and hypercapnia Code(s): J96.11 - CHRONIC RESPIRATORY FAILURE WITH HYPOXIA; J96.12 - CHRONIC RESPIRATORY FAILURE WITH HYPERCAPNIA
--- NOTE | 2018-12-01 10:34 | PN ---
Progress Note, Physician History of Present Illness: hand much better no complaints - Current Medication List Current Medications: Active Medications Acetaminophen (Tylenol -) 650 mg PO Q6H PRN PRN Reason: PAIN Last Admin: 11/22/18 09:23 Dose: 650 mg Albuterol Sulfate (Ventolin Hfa Inhaler -) 2 puff IH Q4H PRN PRN Reason: SHORT OF BREATH/WHEEZING Last Admin: 11/24/18 03:44 Dose: 2 puff Albuterol Sulfate (Ventolin 0.083% Nebulizer Soln -) 1 amp NEB Q4H PRN PRN Reason: SHORT OF BREATH/WHEEZING Last Admin: 11/26/18 15:45 Dose: 1 amp Arformoterol Tartrate (Brovana (Restricted To Pulmonology/Resp) -) 1 amp NEB RBID [facility] Last Admin: 12/01/18 08:19 Dose: 1 amp Bacitracin (Bacitracin -) 1 applic TP DAILY [facility] Last Admin: 12/01/18 10:24 Dose: 1 applic Docusate Sodium (Colace -) 100 mg PO BID [facility] Last Admin: 12/01/18 10:23 Dose: Not Given Ferrous Sulfate (Feosol -) 325 mg PO BID [facility] Last Admin: 12/01/18 10:23 Dose: Not Given Furosemide (Lasix -) 20 mg PO DAILY [facility] Last Admin: 12/01/18 10:23 Dose: Not Given Piperacillin Sod/Tazobactam (Sod 3.375 gm/ Dextrose) 50 mls @ 100 mls/hr IVPB Q8H-IV JALYN; Protocol Last Admin: 12/01/18 10:22 Dose: 100 mls/hr Vancomycin HCl 1,500 mg/ (Dextrose) 500 mls @ 250 mls/hr IVPB BID@0000,1200 [facility] ; Protocol Last Admin: 12/01/18 04:04 Dose: 250 mls/hr Isosorbide Mononitrate (Imdur -) 60 mg PO HS [facility] Last Admin: 11/30/18 22:21 Dose: 60 mg Montelukast Sodium (Singulair -) 10 mg PO HS [facility] Last Admin: 11/30/18 22:21 Dose: 10 mg Prednisone (Deltasone -) 20 mg PO DAILY [facility] Last Admin: 12/01/18 10:22 Dose: 20 mg Tiotropium [place] (Spiriva Respimat) 2 puff IH DAILY [facility] Last Admin: 12/01/18 10:24 Dose: 2 puff - Objective Vital Signs: Vital Signs Temperature 97.6 F 12/01/18 06:07 Pulse Rate 68 12/01/18 06:07 Respiratory Rate 20 12/01/18 06:07 Blood Pressure 112/76 12/01/18 06:07 O2 Sat by Pulse Oximetry (%) 97 11/30/18 21:00 Constitutional: Yes: No Distress, Calm Cardiovascular: Yes: S1, S2 Respiratory: Yes: Poor Air Entry Gastrointestinal: Yes: Normal Bowel Sounds, Soft Musculoskeletal: Yes: WNL Extremities: Yes: Erythema (improving), Other Neurological: Yes: Alert, Oriented Psychiatric: Yes: Alert, Oriented Labs: CBC, BMP 12/01/18 06:40 12/01/18 06:40 Assessment/Plan Problem List - Problem (1) Cellulitis Code(s): L03.90 - CELLULITIS, UNSPECIFIED (2) COPD (chronic obstructive pulmonary disease) Code(s): J44.9 - CHRONIC OBSTRUCTIVE PULMONARY DISEASE, UNSPECIFIED htn constipation plan can change to oral doxy and augmentin for another 5 more days then follow up with primary rest as per the team
--- NOTE | 2018-12-01 10:54 | PN ---
Progress Note (short form) - Note Progress Note: asymptomatic. states arm is back to normal. denies CP, SOB, fever, chills, N/V/C /D Current Medications Generic Name Dose Route Start Last Admin Trade Name Freq PRN Reason Stop Dose Admin Acetaminophen 650 mg 11/20/18 19:20 11/22/18 09:23 Tylenol - PO 650 mg Q6H PRN Administration PAIN Albuterol Sulfate 2 puff 11/20/18 13:36 11/24/18 03:44 Ventolin Hfa Inhaler - IH 2 puff Q4H PRN Administration SHORT OF BREATH/WHEEZING Albuterol Sulfate 1 amp 11/21/18 15:38 11/26/18 15:45 Ventolin 0.083% Nebulizer Soln - NEB 1 amp Q4H PRN Administration SHORT OF BREATH/WHEEZING Arformoterol Tartrate 1 amp 11/21/18 20:00 12/01/18 08:19 Brovana (Restricted To Pulmonology/Resp) - NEB 1 amp RBID JALYN Administration Bacitracin 1 applic 11/20/18 19:30 12/01/18 10:24 Bacitracin - TP 1 applic DAILY JAL[facility] Administration Docusate Sodium 100 mg 11/23/18 22:00 12/01/18 10:23 Colace - PO Not Given BID JALYN Ferrous Sulfate 325 mg 11/23/18 22:00 12/01/18 10:23 Feosol - PO Not Given BID JALYN Furosemide 20 mg 11/21/18 10:00 12/01/18 10:23 Lasix - PO Not Given DAILY JALYN Piperacillin Sod/Tazobactam 50 mls @ 100 mls/hr 11/20/18 14:30 12/01/18 10:22 Sod 3.375 gm/ Dextrose IVPB 100 mls/hr Q8H-IV JALYN Administration Protocol Vancomycin HCl 1,500 mg/ 500 mls @ 250 mls/hr 11/27/18 00:00 12/01/18 04:04 Dextrose IVPB 250 mls/hr BID@0000,1200 J[facility] Administration Protocol Isosorbide Mononitrate 60 mg 11/22/18 08:23 11/30/18 22:21 Imdur - PO 60 mg HS JALYN Administration Montelukast Sodium 10 mg 11/20/18 22:18 11/30/18 22:21 Singulair - PO 10 mg HS JALYN Administration Prednisone 20 mg 11/20/18 22:30 12/01/18 10:22 Deltasone - PO 20 mg DAILY JALYN Administration Tiotropium [place] 2 puff 11/21/18 15:45 12/01/18 10:24 Spiriva Respimat IH 2 puff DAILY JALYN Administration Last Vital Signs Temp Pulse Resp BP Pulse Ox 97.6 F 68 20 112/76 97 12/01/18 06:07 12/01/18 06:07 12/01/18 06:07 12/01/18 06:07 11/30/18 21:00 General NAD Extremities RUE swelling resolved. very small area of swelling adjacent to elbow. erythematous. no warmth or tenderness. remainder of the arm looks normal. ASSESSMENT AND PLAN: 62 year old male with history of Obesity, Chronic Respiratory Failure sec to COPD (on 2L O2 via NC), Chronic Diastolic CHF, Pulmonary HTN, MR, HTN, GAY, Bilateral LE Lymphedema, Hx osteomyelitis toe s/p 6 weeks Abx, presents with R forearm erythema/pain/tenderness after possibly sustaining an insect bite 3 days prior to admission. 1. Acute RUE Cellulitis- due to spider bite vs trauma to brick wall. clinically improved. on vanco and zosyn. will switch to augmentin and doxy x5 days. 2. Chronic Respiratory Failure secondary to COPD - Stable, no evidence of acute exacerbation. refusing bipap at bedtime. refusing further workup for his lungs. pulmonary on board. on low dose steroids chronically. 3. HTN/CAD with Hx occluded RCA/MR - seen by Cardio - continue Imdur (dose increased to 60mg as per Cardio). Further medication optimization as per Cardio. 4. Chronic Diastolic CHF - no evidence of decompensation. cont home medications 5. Microscopic Hematuria - asymptomatic. For out-patient follow up/Urology referral. 6. Hx of Rectal Stricture (reported by patient)- was planned to do colonoscopy but not cleared for procedure. will need to f/u outpatient. 7. Microcytic Anemia, MCV 69 - Iron deficiency, Iron Sat 12, likely sec to chronic blood loss anemia. GI consulted for further work-up. started on FeSo4 supplementation. 8. Chronic Venous Stasis/LE varicosities - TEDs, Lasix. 9. DVT Px - Lovenox SQ 10.d/c home. stressed improtance of medication compliance and follow up Visit type - Emergency Visit Emergency Visit: Yes ED Registration Date: 11/20/18 Care time: The patient presented to the Emergency Department on the above date and was hospitalized for further evaluation of their emergent condition. - New Patient This patient is new to me today: No - Critical Care Critical Care patient: No - Discharge Referral Referred to [facility] Med [facility] No
[2018-12-01 16:41] VITALS: BP 112/69; PULSE 83; TEMP 97.8
== END 2018-12-01 13:29 | disposition home or self-care (01) | DRG 603 ==
LOC: JER 08:19 → JERBED 11:12 → J5S 17:35
PROVIDERS: ATTEND Internal Medicine
DX: L03.113 Cellulitis of right upper limb (principal); J96.12 Chronic respiratory failure with hypercapnia; J96.11 Chronic respiratory failure with hypoxia; Z68.41 Body mass index [BMI] 40.0-44.9, adult; I87.333 Chronic venous hypertension (idiopathic) with ulcer and inflammation of bilateral lower extremity; L97.919 Non-pressure chronic ulcer of unspecified part of right lower leg with unspecified severity; L97.929 Non-pressure chronic ulcer of unspecified part of left lower leg with unspecified severity; I50.32 Chronic diastolic (congestive) heart failure; J44.9 Chronic obstructive pulmonary disease, unspecified; I87.2 Venous insufficiency (chronic) (peripheral); G47.33 Obstructive sleep apnea (adult) (pediatric); I27.20 Pulmonary hypertension, unspecified; I08.0 Rheumatic disorders of both mitral and aortic valves; I89.0 Lymphedema, not elsewhere classified; R31.29 Other microscopic hematuria; D64.9 Anemia, unspecified; I25.10 Atherosclerotic heart disease of native coronary artery without angina pectoris; E66.01 Morbid (severe) obesity due to excess calories; J20.9 Acute bronchitis, unspecified; I11.0 Hypertensive heart disease with heart failure; S50.861A Insect bite (nonvenomous) of right forearm, initial encounter; K59.09 Other constipation; Z99.81 Dependence on supplemental oxygen
CPT/HCPCS: 36415; 36600; 71045-TC-FY; 73070-TC-RT-FY; 74019-TC-FY; 80053; 81003; 82272; 82803; 83540; 83550; 83735; 83880; 84100; 84484; 85025; 87040; 93005; 93010; 94640; 94660; 99283-25; G0480

== ENCOUNTER 2018-12-23 09:02 | Inpatient (IN) | payer OTHER, MEDICARE ==
[2018-12-23 09:50] VITALS: BMI 41.8
--- NOTE | 2018-12-23 10:11 | PDOC ---
History of Present Illness - General Chief Complaint: Shortness of Breath Stated Complaint: SOB Time Seen by Provider: 12/23/18 10:10 History Source: Patient, Family - History of Present Illness Initial Comments: 12/23/18 11:24 Mr. Bertrand is a 63 y/o M with hx COPD, diastolic CHF, hx osteomyelitis on his LLE, Pulmonary HTN, HTN, chronic LE lymphedema, recent admission for RUE cellulitis p/w 2-3 days of worsening shortness of breath. He reports feeling unwell since his recent discharge from the hospital on 12/01/2018. He reports shortness of breath, worsened while laying flat, cough productive of thick white sputum, as well as increased bilateral LE edema from baseline. He denies any fevers, chills, fatigue, night sweats, chest pain, confusion, weakness. He also reports concern that his "foot is infected again". He reports having an appointment with wound care that was in place after his 6 weeks of abx for his prior osteo, but reports missing it due to his recent admission. He reports increased drainage from his bandage over his L greater toe but denies any pain in his foot. Curing Oven Tender: Dr. Donohue Drug Abuse Program Coordinator: Dr. Restrepo Past History - Past Medical History Allergies/Adverse Reactions: Allergies Allergy/AdvReac Type Severity Reaction Status Date / Time No Known Allergies Allergy Verified 12/23/18 09:33 Home Medications: Ambulatory Orders Prednisone 20 mg PO ASDIR 03/09/17 Albuterol Sulfate [Proair Hfa] 2 puff IH Q4H PRN 07/20/18 Montelukast Na [Singulair -] 10 mg PO DAILY 07/20/18 Arformoterol Tartrate [Brovana -] 1 amp NEB RBID #1 amp 12/01/18 Doxycycline Hyclate [Vibratab -] 100 mg PO BID #10 tablet 12/01/18 Ferrous Sulfate [Feosol] 325 mg PO BID #60 ud 12/01/18 Isosorbide Mononitrate [Imdur -] 60 mg PO HS #30 tab.sr.24h 12/01/18 Tiotropium [place] [Spiriva Respimat] 2 puff IH DAILY #1 inhaler 12/01/18 Furosemide [Lasix] 20 mg PO ASDIR 12/23/18 Anemia: Yes Cancer: No Cardiac Disorders: Yes CVA: No COPD: Yes CHF: No Dementia: No Diabetes: No GI Disorders: No Disorders: No HTN: Yes Hypercholesterolemia: Yes Liver Disease: No Seizures: No Thyroid Disease: No - Surgical History Abdominal Surgery: No Appendectomy: No Cardiac Surgery: No Cholecystectomy: No Lung Surgery: Yes Neurologic Surgery: No Orthopedic Surgery: No - Immunization History Immunization Up to Date: Yes - Suicide/Smoking/Psychosocial Hx Smoking History: Former smoker Have you smoked in the past 12 months: No If you are a former smoker, when did you quit?: 15 yrs ago Information on smoking cessation initiated: No Hx Alcohol Use: Yes Drug/Substance Use Hx: No Substance Use Type: None Hx Substance Use Treatment: No Review of Systems - Review of Systems Able to Perform ROS?: Yes Comments:: 12/23/18 12:11 ROS: GENERAL/CONSTITUTIONAL: No fever or chills. No weakness. HEAD, EYES, EARS, NOSE AND THROAT: No change in vision. No ear pain or discharge. No sore throat. CARDIOVASCULAR: Shortness of breath, orthopnea. No chest pain. RESPIRATORY: Cough, productive of thick white/green sputum. No wheezing, or hemoptysis. GASTROINTESTINAL: No nausea, vomiting, diarrhea or constipation. GENITOURINARY: No dysuria, frequency, or change in urination. MUSCULOSKELETAL: L greater toe drainage, swelling. No joint or muscle pain. No neck or back pain. SKIN: No rash NEUROLOGIC: No headache, vertigo, loss of consciousness, or change in strength/ sensation. ENDOCRINE: No increased thirst. No abnormal weight change HEMATOLOGIC/LYMPHATIC: No anemia, easy bleeding, or history of blood clots. ALLERGIC/IMMUNOLOGIC: No hives or skin allergy. *Physical Exam - Vital Signs Last Vital Signs Temp Pulse Resp BP Pulse Ox 98.2 F 82 22 H 149/96 92 L 12/23/18 09:04 12/23/18 09:04 12/23/18 09:04 12/23/18 09:04 12/23/18 09:20 - Physical Exam Comments: 12/23/18 12:13 PE: GENERAL: Awake, alert, and fully oriented, in no acute distress HEAD: No signs of trauma, normocephalic, atraumatic EYES: PERRLA, EOMI, sclera anicteric, conjunctiva clear ENT: Auricles normal inspection, hearing grossly normal, nares patent, oropharynx clear without exudates. Moist mucosa NECK: Normal ROM, supple, no lymphadenopathy, JVD, or masses LUNGS: No distress, speaks full sentences, clear to auscultation bilaterally HEART: Regular rate and rhythm, normal S1 and S2, no murmurs, rubs or gallops, peripheral pulses normal and equal bilaterally. ABDOMEN: Soft, nontender, normoactive bowel sounds. No guarding, no rebound. No masses EXTREMITIES : L great toe bandaging removed. Large, swollen, erythematous deformed toe, draining pus from distal wound. No distal sensation on L great toe. Diffuse stasis changes on bilateral lower extremities, 3+ pitting edema bilaterally. SKIN: Warm, Dry, normal turgor, no rashes or lesions noted Heart Score/ECG Review - ECG Intrepretation Rhythm: Regular Rhythm - QRS Widened: RBBB Measured at (milliseconds): 120 - ST and T Early Repolarization: No Non Specific ST-T Wave changes: No ED Treatment Course - LABORATORY CBC & Chemistry Diagram: 12/23/18 10:21 12/23/18 10:21 Medical Decision Making - Medical Decision Making 12/23/18 10:30 63 M hx osteomyelitis, recent admission for RUE cellulitis, COPD, diastolic CHF p/w SOB. Differential includes pneumonia vs CHF given cough, thick green/white sputum. Differential also includes sepsis given multiple sources between wound, drainage from L greater toe, pneumonia, although he is not febrile at this time he reports he often does not mount fevers with infection. Lack of fever makes sepsis less likely, but developing systemic infection possible. Plan: CBC CMP BNP Blood Culture Wound Culture Cardiac Profile CXR X ray L foot EKG Dispo: Likely admit 12/23/18 11:43 Chest X ray reviewed: notable for bilateral effusions, enlarged heart border compared to prior one month ago. Vanc/Zosyn ordered Lasix 40 mg IV ordered 12/23/18 12:16 BNP >2000 Case endorsed to admitting team, patient admitted to Dr. Hall. *DC/Admit/Observation/Transfer Diagnosis at time of Disposition: Osteomyelitis Qualifiers: Osteomyelitis type: unspecified type Osteomyelitis location: foot Laterality: left Qualified Code(s): M86.9 - Osteomyelitis, unspecified CHF (congestive heart failure) Qualifiers: Heart failure type: unspecified Heart failure chronicity: unspecified Qualified Code(s): I50.9 - Heart failure, unspecified - Discharge Dispostion Condition at time of disposition: Guarded Decision to Admit order: Yes - Referrals Referrals: Leti Lopez MD [Primary Care Provider] - - Patient Instructions - Post Discharge Activity
--- NOTE | 2018-12-23 10:12 | PDOC ---
Attending Attestation - Resident Resident Name: [email or web address] - ED Attending Attestation I have performed the following: I have examined & evaluated the patient, The case was reviewed & discussed with the resident, I agree w/resident's findings & plan, Exceptions are as noted - HPI HPI: 12/23/18 10:18 63y M hx of COPD (on 2-3L of home O2), lymphedema, chf, ildefonso, with recen admission for cellulitis and psible pn presents for worsening sob, note thathe has a cough producive of gerenish sputum. denies any feve/chills. Exm: General: morbidly obese, no acute distress Chest: clear to ascultation, no acute respiratory distress Card: rrr no mrg Abd: obese, soft nontende EXT: LLE: distal erythema/edema warmth, L toe is swollen, erythemadous, hot to ouch and with purulient discharge from tip plan: posible pna - will obtain labs, cxr, blood cx lower ext: suspect abscess vs cellulitis ovs osteo of L great toe - Physicial Exam PE: 12/23/18 14:04 see sadi - Medical Decision Making 12/23/18 13:09 labs reviewed xray of amanuel suspicious for osteo pt started n broad spectrum abx will admit for further management Heart Score/ECG Review - ECG Impressions Comment:: 12/23/18 10:21 Twelve-lead EKG was performed and reviewed by me. There is normal sinus rhythm with a normal rate. rate of 80 RBBB
[2018-12-23 11:06] LABS: RBC 5.91 M/mm3 (4.00-5.60); WHITE BLOOD COUNT 7.2 K/mm3 (4.0-10.0)
[2018-12-23 11:13] LABS: BASO % 0.7 % (0-2.0); EOS % 2.7 % (0-4.5); HEMATOCRIT 41.6 % (35.4-49); HEMOGLOBIN 12.8 GM/dL (11.7-16.9); LYMPH % 9.8 % (8-40); MCH 21.6 pg (25.7-33.7); MCHC 30.7 g/dl (32.0-35.9); MEAN CELL VOLUME 70.4 fl (80-96); MEAN PLT VOLUME 8.4 fl (7.5-11.1); MONO % 9.6 % (3.8-10.2); NEUT % 77.2 % (42.8-82.8); PLATELET COUNT 280 K/MM3 (134-434); RDW 16.4 % (11.9-15.9)
[2018-12-23 11:37] LABS: ALBUMIN 3.2 g/dl (3.4-5.0); BILIRUBIN,TOTAL 0.8 mg/dL (0.2-1); BLOOD UREA NITROGEN 14.6 mg/dL (7-18); CREATININE 0.9 mg/dL (0.55-1.3); N-TERMINAL BNP 2421.6 pg/ml (5-125); POTASSIUM 5.4 mmol/L (3.5-5.1); TOT PROT 7.4 g/dl (6.4-8.2)
[2018-12-23] MEDS ORDERED: PIPERACILLIN/TAZOB 4.5 GM 4.5 GM in DEXTROSE 5%-WATER 100 ML IVPB ONE (11:41)
[2018-12-23] MEDS ORDERED: FUROSEMIDE 40 MG/4 ML INJECTABLE VIAL IVPUSH ONE (11:41)
[2018-12-23] MEDS ORDERED: VANCOMYCIN 1 GM in D5W (PRE-DOCKED) 1,000 MG/250 ML IVPB ONE (11:41)
[2018-12-23] MEDS ORDERED: VANCOMYCIN 1 GRAM (PRE-DOCKED) 1,000 MG/250 ML BAG IVPB ONE (11:50)
[2018-12-23] MEDS ORDERED: PIPERACILLIN/TAZOB 4.5 GM 4.5 GM/100 ML BAG IVPB ONE (11:50)
[2018-12-23] MEDS ORDERED: FUROSEMIDE 40 MG/4 ML INJECTABLE VIAL ONE (11:51)
[2018-12-23] MEDS ORDERED: ACETAMINOPHEN 325 MG TABLET (FP) PO PRN (14:03)
--- NOTE | 2018-12-23 14:03 | HP ---
CHIEF COMPLAINT: shortness of breath and left toe/left leg redness PCP: Dr. Blackburn Metallurgist Process: Dr. Calzada Vascular surgery: Dr. Lopez HISTORY OF PRESENT ILLNESS: 63 yom with PMHx of Morbid Obesity, Chronic Respiratory Failure sec to COPD (on 2L O2 via [place])/prn prednisone (non compliant), Chronic Diastolic CHF, CAD with LIVING MANAGER (Coronary Total Occlusion) of RCA, Pulmonary HTN, MR, HTN, GAY, Bilateral LE Lymphedema, Hx osteomyelitis toe 07/2018 s/p 6 weeks ceftriaxone, recently admitted to [facility] 11/2018 with RUE cellulitis treated with zosyn, then augmentin, followed at wound care comes with progressive dyspnea, orthopnea/PNA, leg swelling, bloating, cough with whitish sputum. Unsure of weight gain, reports complaince with low salt diet, takes lasix every 'few days', last dose 3 days ago. Also c/o Left leg redness/swelling, left great toe pain/swelling/discharge. No fevers, chills. Has been eating well, no other complaints. ER course was notable for: (1) zosyn 4.5 G/Vancomycin 1 g/lasix 40 mg IV. Recent Travel: Denies PAST MEDICAL HISTORY: Morbidty Obesity, Chronic Respiratory Failure sec to COPD (on 2L O2 via [place])/prn prednisone (non compliant), Chronic Diastolic CHF, CAD with LIVING MANAGER (Coronary Total Occlusion) or RCA, Pulmonary HTN, MR, HTN, GAY, Bilateral LE Lymphedema, Hx osteomyelitis toe 07/2018 s/p 6 weeks ceftriaxone, recently admitted to [facility] 11/2018 with RUE cellulitis treated with zosyn, then augmentin, Remote h/o PNA ?partial resection PAST SURGICAL HISTORY: ?partial LLL lung resection for PNA Social History: SmokinPPD since age 17, quit 10 years ago Alcohol: occasional Drugs: remote, Never IVDU 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 Family History: Father and mother with 'heart disease' Allergies No Known Allergies Allergy (Verified 12/23/18 09:33) HOME MEDICATIONS: Home Medications Medication Instructions Recorded Prednisone 20 mg PO ASDIR 03/09/17 Albuterol Sulfate [Proair Hfa] 2 puff IH Q4H PRN 07/20/18 Montelukast Na [Singulair -] 10 mg PO DAILY 07/20/18 Arformoterol Tartrate [Brovana -] 1 amp NEB RBID #1 amp 12/01/18 Doxycycline Hyclate [Vibratab -] 100 mg PO BID #10 tablet 12/01/18 Ferrous Sulfate [Feosol] 325 mg PO BID #60 ud 12/01/18 Isosorbide Mononitrate [Imdur -] 60 mg PO HS #30 tab.sr.24h 12/01/18 Tiotropium [place] [Spiriva 2 puff IH DAILY #1 inhaler 12/01/18 Respimat] Furosemide [Lasix] 20 mg PO ASDIR 12/23/18 REVIEW OF SYSTEMS 12 point ROS done, per HPI PHYSICAL EXAMINATION Vital Signs - 24 hr 12/23/18 12/23/18 12/23/18 09:04 09:10 09:20 Temperature 98.2 F Pulse Rate 82 Pulse Rate [ Apical] Respiratory 22 H 22 H Rate Blood Pressure 149/96 Blood Pressure [Left Arm] O2 Sat by Pulse 90 L 92 L 92 L Oximetry (%) 12/23/18 12:10 Temperature 98.6 F Pulse Rate Pulse Rate [ 83 Apical] Respiratory 20 Rate Blood Pressure Blood Pressure 126/91 [Left Arm] O2 Sat by Pulse 91 L Oximetry (%) GENERAL: Awake, alert, and fully oriented, mild use of accessory muscles of respiration, able to speak in full sentences HEAD: Normal with no signs of trauma. EYES: Pupils equal, round and reactive to light, extraocular movements intact, sclera anicteric, conjunctiva clear. No lid lag. EARS, NOSE, THROAT: Ears normal, nares patent, oropharynx clear without exudates. Moist mucous membranes. NECK: Normal range of motion, soft, supple, unable to visualize JVD, but exam limited by habitus LUNGS: fine scattered bilateral rales throughout both lungs, no wheezing currently, positive air entry. HEART: Regular rate and rhythm, normal S1 and S2 ABDOMEN: Soft, distended, non tender, no voluntary or involuntary guarding or rigidity, pos bowel sounds MUSCULOSKELETAL: No bony deformities or tenderness. No CVA tenderness. UPPER EXTREMITIES: 2+ pulses, warm, well-perfused. No cyanosis. No clubbing. No peripheral edema. LOWER EXTREMITIES: Left leg erythema/edema from foot extending upto left knee, left toe large swellen erythematous deformed toe draining pus from distal wound , no distal sensation left great toe, diffuse stasis with excoration bilateral LE, 3+ pedal edema bilaterally, L>R NEUROLOGICAL: AAOx3, facial symmetry, EOMI, AJAY, moves all extremities freely , Cranial nerves II-XII intact. Normal speech. Gait not observed PSYCHIATRIC: Cooperative. Good eye contact. Appropriate mood and affect. SKIN: Warm, dry, normal turgor, no rashes or lesions noted, normal capillary refill. Laboratory Results - last 24 hr 12/23/18 12/23/18 12/23/18 10:21 10:21 10:21 WBC 7.2 RBC 5.91 H Hgb 12.8 Hct 41.6 MCV 70.4 L MCH 21.6 L MCHC 30.7 L RDW 16.4 H Plt Count 280 D MPV 8.4 Absolute Neuts (auto) 5.5 Neutrophils % 77.2 Lymphocytes % 9.8 D Monocytes % 9.6 Eosinophils % 2.7 Basophils % 0.7 Nucleated RBC % 0 Sodium 137 Potassium 5.4 H Chloride 96 L Carbon Dioxide 36 H Anion Gap 5 L BUN 14.6 Creatinine 0.9 Est GFR (CKD-EPI)AfAm 106.46 Est GFR (CKD-EPI)NonAf 91.86 Random Glucose 76 Calcium 9.0 Total Bilirubin 0.8 AST 53 H ALT 25 Alkaline Phosphatase 108 Creatine Kinase 343 H Creatine Kinase Index 1.3 CK-MB (CK-2) 4.8 H Troponin I < 0.02 B-Natriuretic Peptide 2421.6 H Total Protein 7.4 Albumin 3.2 L CXR results and images reviewed, large heart, prominent lisandro, minimal atelectatic changes Foot xray results and images reviewed: arthritic changes, destructive process distal phalanx great toe, findings consistent with osteomyelitis EKG: NSR, no acute ST-T changes ASSESSMENT/PLAN: 63 yom with PMHx of Morbid Obesity, Chronic Respiratory Failure sec to COPD (on 2L O2 via [place])/prn prednisone (non compliant), Chronic Diastolic CHF, CAD with LIVING MANAGER (Coronary Total Occlusion) of RCA, Pulmonary HTN, MR, HTN, GAY, Bilateral LE Lymphedema, Hx osteomyelitis toe 07/2018 s/p 6 weeks ceftriaxone, recently admitted to [facility] 11/2018 with RUE cellulitis treated with zosyn, then augmentin admitted with acute on chronic diastolic heart failure and LLE cellulitis/ osteomyelitis -Acute on chronic diastolic heart failure exacerbation -Left lower extremity cellulitis/Left great toe osteomyelitis -Chronic hypoxic/hypercapneic resipratory failure -Oxygen/dependent COPD, r/o exacerbation -CAD with LIVING MANAGER (coronary total occlusion) of RCA with angina pectoris -bilateral Lower extremity lymphedema -H/o osteomyelitis left great toe 07/2018 s/p 6 weeks of Ceftriaxone -Pulmonary HTN -HTN -GAY, refused Bipap -recently admitted with RUE cellulitis Plan: Lasix 40 mg IV BID, cardiology Dr. Calzada, repeat 2D echo. Diet/medication compliance. Strict I/os, daily weights, telemetry. Continue Imdur. standing prn nebs, hold off additional steroids. pulmonary input. On chronic doxycycline, hold. on prn prednisone, continue at 20 mg daily for now. LLE duplex, zosyn/vancomycin. Follow up blood/wound cx. Dr. Lopez consult. MRI LLE. ?Debridement vs amputation +/- vascular study. ID input Dr. Davenport. DVTPPX lovenox Admit to telemetry. Dispo pending clinical improvement. Discussed with patient in detail, all questions answered care co-ordinated with Ed Total admit time 65 min Visit type - Emergency Visit Emergency Visit: Yes ED Registration Date: 12/23/18 Care time: The patient presented to the Emergency Department on the above date and was hospitalized for further evaluation of their emergent condition. - New Patient This patient is new to me today: Yes Date on this admission: 12/23/18 - Critical Care Critical Care patient: No
[2018-12-23] MEDS ORDERED: ALBUTEROL SO4 2.5/IPRATROPIUM 0.5 INH SOL 3 ML VIAL.NEB. NEB PRN (14:18)
--- NOTE | 2018-12-23 15:13 | CON.PULM ---
Consult Consult Specialty:: PULM/CCM Referred by:: Hospitalist Reason for Consultation:: SOB - History of Present Illness Chief Complaint: SOB History of Present Illness: 63 M, morbid obesity, Chronic Respiratory Failure sec to COPD (on 2L O2 via NC) , Chronic Diastolic CHF, CAD with [employer]UNICATION[employer] (Coronary Total Occlusion) of RCA, Pulmonary HTN, MR, HTN, GAY (not using CPAP), Bilateral LE Lymphedema, and osteomyelitis toe 07/2018 s/p 6 weeks ceftriaxone. Admitted via the ER due to progressive dyspnea on exertion, orthopnea, and leg swelling, No travel history or sick contacts. No fever or chills. No hemoptysis or night sweats. CXR: minimal basilar atelectasis. - History Source History Provided By: Patient Limitations to Obtaining History: No Limitations - Past Medical History Cardio/Vascular: Yes: CHF, HTN Pulmonary: Yes: Bronchitis, COPD, O2 Dependent, Pneumonia, Sleep Apnea. No: Asthma, Cancer, Previously Intubated, Pulmonary Embolus, Pulmonary Fibrosis - Alcohol/Substance Use Hx Alcohol Use: Yes (Social) - Smoking History Smoking history: Former smoker Have you smoked in the past 12 months: No If you are a former smoker, when did you quit?: 15 yrs ago Home Medications - Allergies Allergies/Adverse Reactions: Allergies Allergy/AdvReac Type Severity Reaction Status Date / Time No Known Allergies Allergy Verified 12/23/18 09:33 - Home Medications Home Medications: Ambulatory Orders Prednisone 20 mg PO ASDIR 03/09/17 Albuterol Sulfate [Proair Hfa] 2 puff IH Q4H PRN 07/20/18 Montelukast Na [Singulair -] 10 mg PO DAILY 07/20/18 Arformoterol Tartrate [Brovana -] 1 amp NEB RBID #1 amp 12/01/18 Doxycycline Hyclate [Vibratab -] 100 mg PO BID #10 tablet 12/01/18 Ferrous Sulfate [Feosol] 325 mg PO BID #60 ud 12/01/18 Isosorbide Mononitrate [Imdur -] 60 mg PO HS #30 tab.sr.24h 12/01/18 Tiotropium [place] [Spiriva Respimat] 2 puff IH DAILY #1 inhaler 12/01/18 Furosemide [Lasix] 20 mg PO ASDIR 12/23/18 Review of Systems - Review of Systems Constitutional: reports: Malaise. denies: Chills, Fever, Night Sweats Eyes: reports: No Symptoms HENT: reports: No Symptoms Neck: reports: No Symptoms Cardiovascular: reports: Edema, Shortness of Breath. denies: Chest Pain, Palpitations Respiratory: reports: Cough, Snoring, SOB, SOB on Exertion, Wheezing. denies: Hemoptysis, PND Gastrointestinal: reports: Bloating Genitourinary: reports: No Symptoms Breasts: reports: No Symptoms Reported Musculoskeletal: reports: Back Pain Integumentary: reports: No Symptoms Neurological: reports: No Symptoms Endocrine: reports: No Symptoms Hematology/Lymphatic: reports: No Symptoms Psychiatric: reports: No Symptoms Physical Exam Vital Sings: Vital Signs Temperature 98.6 F 12/23/18 14:14 Pulse Rate 103 H 12/23/18 14:14 Respiratory Rate 20 12/23/18 14:14 Blood Pressure 120/85 12/23/18 14:14 O2 Sat by Pulse Oximetry (%) 93 L 12/23/18 14:14 Constitutional: Yes: No Distress, Obese Eyes: Yes: WNL, Conjunctiva Clear, EOM Intact HENT: Yes: WNL, Atraumatic, Normocephalic Neck: Yes: WNL, Supple, Trachea Midline Cardiovascular: Yes: Regular Rate and Rhythm Respiratory: Yes: Accessory Muscle Use, Cough, Diminished, On Nasal O2, Poor Air Entry, Rales, Rhonchi, SOB, SOB on Exertion, Tachypnea, Wheezes. No: Stridor ...Inspection: Yes: WNL ...Clubbing: No Gastrointestinal: Yes: Normal Bowel Sounds, Soft, Abdomen, Obese Musculoskeletal: Yes: Back Pain Extremities: Yes: Cool, Delayed Capillary Refill, Erythema Edema: Yes Peripheral Pulses WNL: Yes Integumentary: Yes: WNL Neurological: Yes: WNL, Alert, Oriented ...Motor Strength: WNL Psychiatric: Yes: WNL, Alert, Oriented Labs: CBC, BMP 12/23/18 10:21 12/23/18 10:21 Imaging - Results Chest X-ray: Report Reviewed, Image Reviewed Problem List - Problems (1) CHF (congestive heart failure) Code(s): I50.9 - HEART FAILURE, UNSPECIFIED Qualifiers: Heart failure type: unspecified Heart failure chronicity: unspecified Qualified Code(s): I50.9 - Heart failure, unspecified (2) Osteomyelitis Code(s): M86.9 - OSTEOMYELITIS, UNSPECIFIED Qualifiers: Osteomyelitis type: unspecified type Osteomyelitis location: foot Laterality: left Qualified Code(s): M86.9 - Osteomyelitis, unspecified (3) Cellulitis Code(s): L03.90 - CELLULITIS, UNSPECIFIED (4) 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 attack Code(s): F06.4 - ANXIETY DISORDER DUE TO KNOWN PHYSIOLOGICAL CONDITION; F41.0 - PANIC DISORDER [EPISODIC PAROXYSMAL ANXIETY] (5) CAD (coronary artery disease) Code(s): I25.10 - ATHSCL HEART DISEASE OF [place] CORONARY ARTERY W/O ANG PCTRS (6) COPD (chronic obstructive pulmonary disease) Code(s): J44.9 - CHRONIC OBSTRUCTIVE PULMONARY DISEASE, UNSPECIFIED (7) Diabetes mellitus Code(s): E11.9 - TYPE 2 DIABETES MELLITUS WITHOUT COMPLICATIONS (8) Lymph edema Code(s): I89.0 - LYMPHEDEMA, NOT ELSEWHERE CLASSIFIED (9) Morbid obesity Code(s): E66.01 - MORBID (SEVERE) OBESITY DUE TO EXCESS CALORIES (10) Pulmonary HTN Code(s): I27.20 - PULMONARY HYPERTENSION, UNSPECIFIED (11) Sleep apnea Code(s): G47.30 - SLEEP APNEA, UNSPECIFIED (12) Stasis dermatitis of both legs Code(s): I87.2 - VENOUS INSUFFICIENCY (CHRONIC) (PERIPHERAL) (13) Venous insufficiency of both lower extremities Code(s): I87.2 - VENOUS INSUFFICIENCY (CHRONIC) (PERIPHERAL) Assessment/Plan Patient reports that he has tried many formulations of BD and the only one that was effective was Albuterol He refuses Spiriva Monitor off systemic steroids O2 as needed No smoking Will need formal sleep re-evaluation after discharge ABX as ordered Lasix Lovenox Will follow Thank you. Dr Carter
[2018-12-23] MEDS ORDERED: ALBUTEROL SO4 0.083% IH SOL 2.5 MG/3 ML VIAL.NEB. NEB PRN (15:15)
[2018-12-23 15:18] LABS: ANISOCYTOSIS 2+; MACROCYTOSIS 0; PLATELET ESTIMATE NORMAL; TARGET CELLS 1+; TEAR DROP CELLS 1+
[2018-12-23] MEDS ORDERED: DEXTROSE 5%-WATER 100 ML IVPB ONE (16:36)
[2018-12-23] MEDS ORDERED: PIPERACILLIN/TAZOBACTAM 4.5 GM VIAL IVPB ONE (16:36)
--- NOTE | 2018-12-23 16:41 | EKG ---
Test Reason : Blood Pressure : / mmHG Vent. Rate : 080 BPM Atrial Rate : 080 BPM P-R Int : 116 ms QRS Dur : 120 ms QT Int : 412 ms P-R-T Axes : 072 187 031 degrees QTc Int : 475 ms NORMAL SINUS RHYTHM RIGHT AXIS DEVIATION BIATRIAL ENLARGEMENT RIGHT BUNDLE BRANCH BLOCK ABNORMAL ECG Confirmed by MD LILLY, JO-ANN ([id number]) on 12/23/2018 4:41:27 PM Referred By: Confirmed By:JO-ANN CARR MD
--- NOTE | 2018-12-23 17:23 | CON.ID ---
Consult - History of Present Illness History of Present Illness: 63 y.o. male with PMH of morbid obesity, CAD with RCA occlusion, HTN, CHF, COPD on o2 NC, LE lymphedema, GAY noncompliant with CPAP use, toe OM s/p treatment with IV Ceftriaxone x 6 wks in 07/2018 presenting with c/o ECHOLS, SOB, orthopnea, and LLE swelling and erythema/tenderness. Pt was discharged on 12/01/2018 after treatment for respiratory issues and RUE cellulitis with Zosyn/Vancomycin. He states his LLE has become more painful and swollen since he was discharged home but his RUE cellulitis resolved. He states he has been coughing more with production of yellow sputum and increasing SOB. In the ER he has been afebrile, without leukocytosis but with O2 sat of 90%. Also was noted to have small amount of purulent drainage from Lt 1st toe which I currently do not see. Currently he is alert, without acute distress on NC. Denies chest pain, abd pain /n/v/d, dysuria. - History Source History Provided By: Patient, Medical Record - Past Medical History Cardio/Vascular: Yes: CHF, HTN Pulmonary: Yes: Bronchitis, COPD, O2 Dependent, Pneumonia, Sleep Apnea. No: Asthma, Cancer, Previously Intubated, Pulmonary Embolus, Pulmonary Fibrosis Dermatology: Yes: Cellulitis - Alcohol/Substance Use Hx Alcohol Use: Yes (Social) - Smoking History Smoking history: Former smoker Have you smoked in the past 12 months: No If you are a former smoker, when did you quit?: 15 yrs ago Home Medications - Allergies Allergies/Adverse Reactions: Allergies Allergy/AdvReac Type Severity Reaction Status Date / Time No Known Allergies Allergy Verified 12/23/18 09:33 - Home Medications Home Medications: Ambulatory Orders Prednisone 20 mg PO ASDIR 03/09/17 Albuterol Sulfate [Proair Hfa] 2 puff IH Q4H PRN 07/20/18 Montelukast Na [Singulair -] 10 mg PO DAILY 07/20/18 Arformoterol Tartrate [Brovana -] 1 amp [facility] RBID #1 amp 12/01/18 Doxycycline Hyclate [Vibratab -] 100 mg PO BID #10 tablet 12/01/18 Ferrous Sulfate [Feosol] 325 mg PO BID #60 ud 12/01/18 Isosorbide Mononitrate [Imdur -] 60 mg PO HS #30 tab.sr.24h 12/01/18 Tiotropium [place] [Spiriva Respimat] 2 puff IH DAILY #1 inhaler 12/01/18 Furosemide [Lasix] 20 mg PO ASDIR 12/23/18 Review of Systems - Review of Systems Constitutional: reports: No Symptoms Eyes: reports: No Symptoms HENT: reports: No Symptoms Neck: reports: No Symptoms Cardiovascular: reports: No Symptoms Respiratory: reports: Cough, SOB, SOB on Exertion Gastrointestinal: reports: No Symptoms Genitourinary: reports: No Symptoms Musculoskeletal: reports: No Symptoms Integumentary: reports: Erythema (LLE increased erythema/tenderness) Neurological: reports: No Symptoms Endocrine: reports: No Symptoms Hematology/Lymphatic: reports: No Symptoms Physical Exam Vital Signs: Vital Signs Temperature 98.3 F 12/23/18 15:00 Pulse Rate 98 H 12/23/18 15:00 Respiratory Rate 20 12/23/18 15:00 Blood Pressure 121/80 12/23/18 15:00 O2 Sat by Pulse Oximetry (%) 93 L 12/23/18 14:14 Constitutional: Yes: No Distress, Calm Eyes: Yes: Conjunctiva Clear HENT: Yes: Atraumatic Neck: Yes: Supple Cardiovascular: Yes: Regular Rate and Rhythm Respiratory: Yes: Diminished, On Nasal O2 Gastrointestinal: Yes: Normal Bowel Sounds, Soft, Abdomen, Obese Renal/: Yes: WNL Musculoskeletal: Yes: WNL Extremities: Yes: Erythema (b/l lymphedema, LLE edema with erythema extending up towards knee +warmth/mild tenderness. Lt foot with deformed 1st toe, no current purulence, +erythema/edema) Edema: LLE: 3+, RLE: 2+ Integumentary: Yes: WNL Neurological: Yes: Alert, Oriented Psychiatric: Yes: Alert Labs: CBC, BMP 12/23/18 10:21 12/23/18 10:21 Imaging - Results Chest X-ray: Report Reviewed (LLL atelectasis) X-ray: Report Reviewed (Foot) Problem List - Problems (1) CHF (congestive heart failure) Code(s): I50.9 - HEART FAILURE, UNSPECIFIED Qualifiers: Heart failure type: unspecified Heart failure chronicity: unspecified Qualified Code(s): I50.9 - Heart failure, unspecified (2) Osteomyelitis Code(s): M86.9 - OSTEOMYELITIS, UNSPECIFIED Qualifiers: Osteomyelitis type: unspecified type Osteomyelitis location: foot Laterality: left Qualified Code(s): M86.9 - Osteomyelitis, unspecified (3) Cellulitis Code(s): L03.90 - CELLULITIS, UNSPECIFIED (4) 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 attack Code(s): F06.4 - ANXIETY DISORDER DUE TO KNOWN PHYSIOLOGICAL CONDITION; F41.0 - PANIC DISORDER [EPISODIC PAROXYSMAL ANXIETY] (5) CAD (coronary artery disease) Code(s): I25.10 - ATHSCL HEART DISEASE OF [place] CORONARY ARTERY W/O ANG PCTRS (6) COPD (chronic obstructive pulmonary disease) Code(s): J44.9 - CHRONIC OBSTRUCTIVE PULMONARY DISEASE, UNSPECIFIED (7) Lymph edema Code(s): I89.0 - LYMPHEDEMA, NOT ELSEWHERE CLASSIFIED (8) Morbid obesity Code(s): E66.01 - MORBID (SEVERE) OBESITY DUE TO EXCESS CALORIES (9) Sleep apnea Code(s): G47.30 - SLEEP APNEA, UNSPECIFIED (10) Stasis dermatitis of both legs Code(s): I87.2 - VENOUS INSUFFICIENCY (CHRONIC) (PERIPHERAL) Assessment/Plan SOB/ECHOLS LLE cellulitis r/o Lt toe abscess/OM (previously treated with 6 wks IV antibiotics) COPD ?Atelectasis vs PNA -- continue Zosyn/ will add Vancomycin IV -- recommend further imaging of foot but pt has consistently refused due to severe orthopnea -- Check Vancomycin trough prior to 4th dose, monitor renal function closely -- check esr/crp -- follow up wound and blood cultures -- f/u results of doppler to r/o DVT Will follow Thank you
[2018-12-23] MEDS: FERROUS SO4 325 MG TABLET (FP) PO SCH ×2 (17:46→18:33)
[2018-12-23] MEDS ORDERED: PIPERACILLIN/TAZOB 4.5 GM 4.5 GM in DEXTROSE 5%-WATER 100 ML IVPB SCH (18:00)
[2018-12-23] MEDS ORDERED: methylPREDNISolone NA SUCC 40 MG/1 ML VIAL IVPUSH SCH (18:00)
[2018-12-23] MEDS: ALBUTEROL SO4 0.083% IH SOL 2.5 MG/3 ML VIAL.NEB. NEB SCH ×2 (19:23→21:05)
[2018-12-23] MEDS ORDERED: ARFORMOTEROL TARTRATE 15 MCG/2 ML VIAL NEB SCH (20:00)
[2018-12-23] MEDS: ISOSORBIDE MONONITRATE 60 MG TAB.SR.24H (FP) PO SCH (21:36)
[2018-12-24] MEDS: VANCOMYCIN HCL 1,500 MG in DEXTROSE 5%-WATER - 500 ML IVPB SCH ×2 (00:43→12:44)
[2018-12-24] MEDS ORDERED: DEXTROSE 5%-WATER 100 ML IVPB ONE ×3 (01:11→18:30)
[2018-12-24] MEDS ORDERED: PIPERACILLIN/TAZOBACTAM 4.5 GM VIAL IVPB ONE ×3 (01:11→18:30)
[2018-12-24] MEDS: PIPERACILLIN/TAZOB 4.5 GM 4.5 GM in DEXTROSE 5%-WATER 100 ML IVPB SCH ×3 (01:35→18:31)
[2018-12-24] MEDS: FUROSEMIDE 40 MG/4 ML INJECTABLE VIAL IVPUSH SCH ×2 (05:48→13:26)
[2018-12-24 07:16] LABS: BILIRUBIN,TOTAL 0.5 mg/dL (0.2-1); BLOOD UREA NITROGEN 20.8 mg/dL (7-18); CALCIUM 8.7 mg/dL (8.5-10.1); CREATININE 1.2 mg/dL (0.55-1.3); MAGNESIUM 1.8 mg/dL (1.8-2.4); PHOSPHOROUS 5.1 mg/dL (2.5-4.9); POTASSIUM 4.7 mmol/L (3.5-5.1); TOT PROT 7.1 g/dl (6.4-8.2)
[2018-12-24] MEDS: ALBUTEROL SO4 0.083% IH SOL 2.5 MG/3 ML VIAL.NEB. NEB SCH ×4 (07:30→20:30)
[2018-12-24 07:31] LABS: BASO % 0.2 % (0-2.0); HEMATOCRIT 40.9 % (35.4-49); HEMOGLOBIN 12.6 GM/dL (11.7-16.9); MCH 21.9 pg (25.7-33.7); MCHC 30.8 g/dl (32.0-35.9); MEAN PLT VOLUME 8.3 fl (7.5-11.1); MONO % 7.2 % (3.8-10.2); NEUT % 86.6 % (42.8-82.8); PLATELET COUNT 286 K/MM3 (134-434); RBC 5.75 M/mm3 (4.00-5.60); RDW 16.4 % (11.9-15.9); WHITE BLOOD COUNT 6.7 K/mm3 (4.0-10.0)
[2018-12-24] MEDS: predniSONE 20 MG TABLET (UD) PO SCH (09:25)
[2018-12-24] MEDS: ENOXAPARIN NA (PORCINE) 40 MG/0.4 ML DISP.SYRIN SQ SCH ×2 (09:26→09:38)
[2018-12-24] MEDS: FERROUS SO4 325 MG TABLET (FP) PO SCH ×2 (09:26→18:03)
[2018-12-24] MEDS ORDERED: TIOTROPIUM BROMIDE 2.5 MCG (SPIRIVA) RESPIMAT INHALER IH SCH (10:00)
[2018-12-24] MEDS ORDERED: PIPERACILLIN/TAZOB 4.5 GM 4.5 GM in DEXTROSE 5%-WATER 100 ML IVPB SCH (10:00)
--- NOTE | 2018-12-24 11:30 | PN ---
Progress Note, Physician History of Present Illness: pulmonary alert,still dyspneic,+ cough (yellow-green sputum) - Current Medication List Current Medications: Active Medications Acetaminophen (Tylenol -) 650 mg PO Q6H PRN PRN Reason: FEVER Albuterol Sulfate (Ventolin 0.083% Nebulizer Soln -) 1 amp NEB RQID [facility] Last Admin: 12/24/18 11:13 Dose: 1 amp Albuterol Sulfate (Ventolin 0.083% Nebulizer Soln -) 1 amp NEB Q4H PRN PRN Reason: SHORT OF BREATH/WHEEZING Enoxaparin Sodium (Lovenox -) 40 mg SQ DAILY [facility] Last Admin: 12/24/18 09:38 Dose: Not Given Ferrous Sulfate (Feosol -) 325 mg PO BIDWM [facility] Last Admin: 12/24/18 09:26 Dose: Not Given Furosemide (Lasix Injection -) 40 mg IVPUSH BID@0600,1400 [facility] Last Admin: 12/24/18 05:48 Dose: 40 mg Vancomycin HCl 1,500 mg/ (Dextrose) 500 mls @ 125 mls/hr IVPB Q12H [facility]; Protocol Last Admin: 12/24/18 00:43 Dose: 125 mls/hr Piperacillin Sod/Tazobactam (Sod 4.5 gm/ Dextrose) 100 mls @ 200 mls/hr IVPB Q8H-IV [facility]; Protocol Last Admin: 12/24/18 09:25 Dose: 200 mls/hr Isosorbide Mononitrate (Imdur -) 60 mg PO [facility] Last Admin: 12/23/18 21:36 Dose: 60 mg Montelukast Sodium (Singulair -) 10 mg PO HS [facility] Prednisone (Deltasone -) 40 mg PO DAILY [facility] Last Admin: 12/24/18 09:25 Dose: 40 mg - Objective Vital Signs: Vital Signs Temperature 98.1 F 12/24/18 08:20 Pulse Rate 94 H 12/24/18 08:20 Respiratory Rate 20 12/24/18 08:23 Blood Pressure 128/79 12/24/18 08:20 O2 Sat by Pulse Oximetry (%) 90 L 12/24/18 08:23 Constitutional: Yes: Calm, Obese Eyes: Yes: WNL HENT: Yes: WNL Neck: Yes: WNL Cardiovascular: Yes: Regular Rate and Rhythm, S1, S2 Respiratory: Yes: Diminished Gastrointestinal: Yes: Normal Bowel Sounds, Soft Extremities: Yes: Erythema Edema: Yes Labs: CBC, BMP 12/24/18 05:00 12/24/18 05:10 Assessment/Plan Problem List - Problems (1) CHF (congestive heart failure) Code(s): I50.9 - HEART FAILURE, UNSPECIFIED Qualifiers: Heart failure type: unspecified Heart failure chronicity: unspecified Qualified Code(s): I50.9 - Heart failure, unspecified (2) Osteomyelitis Code(s): M86.9 - OSTEOMYELITIS, UNSPECIFIED Qualifiers: Osteomyelitis type: unspecified type Osteomyelitis location: foot Laterality: left Qualified Code(s): M86.9 - Osteomyelitis, unspecified (3) Cellulitis Code(s): L03.90 - CELLULITIS, UNSPECIFIED (4) 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 attack Code(s): F06.4 - ANXIETY DISORDER DUE TO KNOWN PHYSIOLOGICAL CONDITION; F41.0 - PANIC DISORDER [EPISODIC PAROXYSMAL ANXIETY] (5) CAD (coronary artery disease) Code(s): I25.10 - ATHSCL HEART DISEASE OF [place] CORONARY ARTERY W/O ANG PCTRS (6) COPD (chronic obstructive pulmonary disease) Code(s): J44.9 - CHRONIC OBSTRUCTIVE PULMONARY DISEASE, UNSPECIFIED (7) Diabetes mellitus Code(s): E11.9 - TYPE 2 DIABETES MELLITUS WITHOUT COMPLICATIONS (8) Lymph edema Code(s): I89.0 - LYMPHEDEMA, NOT ELSEWHERE CLASSIFIED (9) Morbid obesity Code(s): E66.01 - MORBID (SEVERE) OBESITY DUE TO EXCESS CALORIES (10) Pulmonary HTN Code(s): I27.20 - PULMONARY HYPERTENSION, UNSPECIFIED (11) Sleep apnea Code(s): G47.30 - SLEEP APNEA, UNSPECIFIED (12) Stasis dermatitis of both legs Code(s): I87.2 - VENOUS INSUFFICIENCY (CHRONIC) (PERIPHERAL) (13) Venous insufficiency of both lower extremities Code(s): I87.2 - VENOUS INSUFFICIENCY (CHRONIC) (PERIPHERAL) Assessment/Plan Patient reports that he has tried many formulations of BD and the only one that was effective was Albuterol pt refuses Spiriva Monitor off systemic steroids O2 as needed sleep re-evaluation after discharge ABX as per ID Echo Lasix Lovenox PT refuses bipap DR MCPHERSON
--- NOTE | 2018-12-24 11:39 | PN ---
Physical Exam: SUBJECTIVE: Patient seen and examined at bedside. Pt complains of persistent SOB , foot swelling, cough with sputum (collected sample of pale yellow sputum). Has increased his own O2 from 2L (home setting) to 3L OBJECTIVE: Vital Signs Period Temp Pulse Resp BP Sys/Santiago Pulse Ox Last 24 Hr 98.1 F-98.9 F 83-103 20-20 120-133/73-91 90-93 Gen: uncomfortable appearing, AAOx3, NAD, morbidly obese HEENT: NCAT, EOMI Neck: thick neck, no jvd noted Pulm: b/l crackles Cardio: rrr, normal s1s2, 4/6 systolic murmur hear throughout Abd: obese, soft, nontender Ext: b/l edema, stasis dermatitis, L foot with dressing in place, pt refused exam of foot Laboratory Results - last 24 hr 12/23/18 12/23/18 12/23/18 10:21 10:21 10:21 WBC RBC Hgb Hct MCV MCH MCHC RDW Plt Count MPV Absolute Neuts (auto) Neutrophils % Lymphocytes % Monocytes % Eosinophils % Basophils % Nucleated RBC % Hypochromia 0 Platelet Estimate Normal Polychromasia 1+ Poikilocytosis 1+ Anisocytosis 2+ Microcytosis 1+ Macrocytosis 0 Spherocytes 1+ Target Cells 1+ Tear Drop Cells 1+ ESR Sodium 137 Potassium 5.4 H Chloride 96 L Carbon Dioxide 36 H Anion Gap 5 L BUN 14.6 Creatinine 0.9 Est GFR (CKD-EPI)AfAm 106.46 Est GFR (CKD-EPI)NonAf 91.86 Random Glucose 76 Hemoglobin A1c % Calcium 9.0 Phosphorus Magnesium Total Bilirubin 0.8 AST 53 H ALT 25 Alkaline Phosphatase 108 Creatine Kinase 343 H Creatine Kinase Index 1.3 CK-MB (CK-2) 4.8 H Troponin I < 0.02 C-Reactive Protein B-Natriuretic Peptide 2421.6 H Total Protein 7.4 Albumin 3.2 L Random Vancomycin 12/24/18 12/24/18 12/24/18 05:00 05:00 05:10 WBC 6.7 RBC 5.75 H Hgb 12.6 Hct 40.9 MCV 71.0 L MCH 21.9 L MCHC 30.8 L RDW 16.4 H Plt Count 286 MPV 8.3 Absolute Neuts (auto) 5.8 Neutrophils % 86.6 H Lymphocytes % 6.0 L D Monocytes % 7.2 Eosinophils % 0.0 D Basophils % 0.2 Nucleated RBC % 0 Hypochromia Platelet Estimate Polychromasia Poikilocytosis Anisocytosis Microcytosis Macrocytosis Spherocytes Target Cells Tear Drop Cells ESR Sodium 139 Potassium 4.7 Chloride 95 L Carbon Dioxide 36 H Anion Gap 7 L BUN 20.8 H Creatinine 1.2 Est GFR (CKD-EPI)AfAm 75.19 Est GFR (CKD-EPI)NonAf 64.87 Random Glucose 121 H Hemoglobin A1c % Calcium 8.7 Phosphorus 5.1 H Magnesium 1.8 Total Bilirubin 0.5 AST 25 ALT 26 Alkaline Phosphatase 112 Creatine Kinase Creatine Kinase Index CK-MB (CK-2) Troponin I C-Reactive Protein 6.0 H B-Natriuretic Peptide Total Protein 7.1 Albumin 3.0 L Random Vancomycin 27.6 H 12/24/18 12/24/18 05:10 05:20 WBC RBC Hgb Hct MCV MCH MCHC RDW Plt Count MPV Absolute Neuts (auto) Neutrophils % Lymphocytes % Monocytes % Eosinophils % Basophils % Nucleated RBC % Hypochromia Platelet Estimate Polychromasia Poikilocytosis Anisocytosis Microcytosis Macrocytosis Spherocytes Target Cells Tear Drop Cells ESR 57 H Sodium Potassium Chloride Carbon Dioxide Anion Gap BUN Creatinine Est GFR (CKD-EPI)AfAm Est GFR (CKD-EPI)NonAf Random Glucose Hemoglobin A1c % 6.7 H Calcium Phosphorus Magnesium Total Bilirubin AST ALT Alkaline Phosphatase Creatine Kinase Creatine Kinase Index CK-MB (CK-2) Troponin I C-Reactive Protein B-Natriuretic Peptide Total Protein Albumin Random Vancomycin Active Medications Generic Name Dose Route Start Last Admin Trade Name Freq PRN Reason Stop Dose Admin Acetaminophen 650 mg 12/23/18 14:03 Tylenol - PO Q6H PRN FEVER Albuterol Sulfate 1 amp 12/23/18 16:00 12/24/18 11:13 Ventolin 0.083% Nebulizer Soln - NEB 1 amp RQID JALYN Administration Albuterol Sulfate 1 amp 12/23/18 15:15 Ventolin 0.083% Nebulizer Soln - NEB Q4H PRN SHORT OF BREATH/WHEEZING Enoxaparin Sodium 40 mg 12/24/18 10:00 12/24/18 09:38 Lovenox - SQ Not Given DAILY JALYN Ferrous Sulfate 325 mg 12/23/18 17:30 12/24/18 09:26 Feosol - PO Not Given BIDWM JALYN Furosemide 40 mg 12/24/18 06:00 12/24/18 05:48 Lasix Injection - IVPUSH 40 mg BID@0600,1400 JALYN Administration Vancomycin HCl 1,500 mg/ 500 mls @ 125 mls/hr 12/24/18 01:00 12/24/18 00:43 Dextrose IVPB 125 mls/hr Q12H JALYN Administration Protocol Piperacillin Sod/Tazobactam 100 mls @ 200 mls/hr 12/24/18 02:00 12/24/18 09: 25 Sod 4.5 gm/ Dextrose IVPB 200 mls/hr Q8H-IV JALYN Administration Protocol Isosorbide Mononitrate 60 mg 12/23/18 22:00 12/23/18 21:36 Imdur - PO 60 mg HS JALYN Administration Montelukast Sodium 10 mg 12/24/18 22:00 Singulair - PO HS JALYN Prednisone 40 mg 12/24/18 10:00 12/24/18 09:25 Deltasone - PO 40 mg DAILY JALYN Administration ASSESSMENT/PLAN: 63 yom with PMHx of Morbid Obesity, Chronic Respiratory Failure sec to COPD (on 2L O2 via NC)/prn prednisone (non compliant), Chronic Diastolic CHF, CAD with Coronary Total Occlusion of RCA, Pulmonary HTN, MR, HTN, GAY, Bilateral LE Lymphedema, Hx osteomyelitis toe 07/2018 s/p 6 weeks ceftriaxone, recently admitted to [facility] 11/2018 with RUE cellulitis treated with zosyn, then augmentin, followed at wound care comes with progressive dyspnea, orthopnea/PNA, leg swelling, bloating, cough with whitish sputum -Acute on chronic diastolic heart failure exacerbation -Left lower extremity cellulitis/Left great toe osteomyelitis -Chronic hypoxic/hypercapneic resipratory failure -Oxygen/dependent COPD, r/o exacerbation -CAD with CHERRY GROWER (coronary total occlusion) of RCA with angina pectoris -bilateral Lower extremity lymphedema -H/o osteomyelitis left great toe 07/2018 s/p 6 weeks of Ceftriaxone -Pulmonary HTN -HTN -GAY, refused Bipap -recently admitted with RUE cellulitis Plan: -Lasix 40 mg IV BID, cardiology Dr. Calzada, repeat 2D echo pending. -Diet/medication compliance (pt states compliance). Strict I/os, daily weights, telemetry. -Imdur, lasix. F/u Cardio recs regarding other CHF meds -standing prn nebs, hold off additional steroids. pulmonary input. Pt refuses Bilevel, Spiriva. Will need formal sleep study as outpt. -On chronic doxycycline, hold. on prn prednisone, continue at 20 mg daily for now. -Foot XRay suggestive of OM -LLE duplex neg for DVT -MRI LLE. ?Debridement vs amputation +/- vascular study. -zosyn/vancomycin. Follow up blood/wound cx. -Dr. Lopez consult, vascular. ID input Dr. Davenport. -DVTPPX lovenox -Admit to telemetry. -Dispo pending clinical improvement. Visit type - Emergency Visit Emergency Visit: No - New Patient This patient is new to me today: No - Critical Care Critical Care patient: No ATTENDING PHYSICIAN STATEMENT I saw and evaluated the patient. I reviewed the resident's note and discussed the case with the resident. I agree with the resident's findings and plan as documented. SUBJECTIVE: OBJECTIVE: ASSESSMENT AND PLAN:
--- NOTE | 2018-12-24 12:23 | PN ---
Teaching Attending Note Name of Resident: Sonu Kamara ATTENDING PHYSICIAN STATEMENT I saw and evaluated the patient. I reviewed the resident's note and discussed the case with the resident. I agree with the resident's findings and plan as documented with exceptions below. SUBJECTIVE: patient seen and examined, urinating a lot, still with cough with yellowish sputum, but overall feels better. left leg swelling/redness with some improvement, toe with minimal discharge now. OBJECTIVE: Vital Signs Period Temp Pulse Resp BP Sys/Santiago Pulse Ox Last 24 Hr 98.1 F-98.9 F 83-103 20-20 120-133/73-91 90-93 Intake & Output 12/21/18 12/22/18 12/23/18 12/24/18 23:59 23:59 23:59 23:59 Intake Total 320 1110 Output Total 2500 Balance -2180 1110 Weight 300 lb 290 lb General: sitting in bed, breathing better, minimal use of accessory muscles of respiration Neck: soft, supple, limited exam given habitus Chest; Improved fine rales, pos air entry, no wheezing Abdomen:Soft, less distended today, NT, pos bowel sounds Extremities: Left leg erythema/edema from foot extending upto left knee has improved, left toe large with improved swelling/erythhema, no active discharge from distal wound, no distal sensation left great toe, diffuse stasis with excoration bilateral LE, 3+ pedal edema bilaterally, L>R Psych: co-operative Home Medications Medication Instructions Recorded Prednisone 20 mg PO ASDIR 03/09/17 Albuterol Sulfate [Proair Hfa] 2 puff IH Q4H PRN 07/20/18 Montelukast Na [Singulair -] 10 mg PO DAILY 07/20/18 Arformoterol Tartrate [Brovana -] 1 amp NEB RBID #1 amp 12/01/18 Doxycycline Hyclate [Vibratab -] 100 mg PO BID #10 tablet 12/01/18 Ferrous Sulfate [Feosol] 325 mg PO BID #60 ud 12/01/18 Isosorbide Mononitrate [Imdur -] 60 mg PO HS #30 tab.sr.24h 12/01/18 Tiotropium [place] [Spiriva 2 puff IH DAILY #1 inhaler 12/01/18 Respimat] Furosemide [Lasix] 20 mg PO ASDIR 12/23/18 Active Medications Acetaminophen (Tylenol -) 650 mg PO Q6H PRN PRN Reason: FEVER Albuterol Sulfate (Ventolin 0.083% Nebulizer Soln -) 1 amp NEB RQID PENDING SALE TO [facility] Last Admin: 12/24/18 11:13 Dose: 1 amp Albuterol Sulfate (Ventolin 0.083% Nebulizer Soln -) 1 amp NEB Q4H PRN PRN Reason: SHORT OF BREATH/WHEEZING Enoxaparin Sodium (Lovenox -) 40 mg SQ DAILY [facility] Last Admin: 12/24/18 09:38 Dose: Not Given Ferrous Sulfate (Feosol -) 325 mg PO BIDWM JALYN Last Admin: 12/24/18 09:26 Dose: Not Given Furosemide (Lasix Injection -) 40 mg IVPUSH BID@0600,1400 [facility] Last Admin: 12/24/18 05:48 Dose: 40 mg Vancomycin HCl 1,500 mg/ (Dextrose) 500 mls @ 125 mls/hr IVPB Q12H JALYN; Protocol Last Admin: 12/24/18 00:43 Dose: 125 mls/hr Piperacillin Sod/Tazobactam (Sod 4.5 gm/ Dextrose) 100 mls @ 200 mls/hr IVPB Q8H-IV JALYN; Protocol Last Admin: 12/24/18 09:25 Dose: 200 mls/hr Isosorbide Mononitrate (Imdur -) 60 mg PO HS [facility] Last Admin: 12/23/18 21:36 Dose: 60 mg Montelukast Sodium (Singulair -) 10 mg PO HS [facility] Prednisone (Deltasone -) 40 mg PO DAILY [facility] Last Admin: 12/24/18 09:25 Dose: 40 mg Laboratory Results - last 24 hr 12/23/18 12/24/18 12/24/18 10:21 05:00 05:00 WBC 6.7 RBC 5.75 H Hgb 12.6 Hct 40.9 MCV 71.0 L MCH 21.9 L MCHC 30.8 L RDW 16.4 H Plt Count 286 MPV 8.3 Absolute Neuts (auto) 5.8 Neutrophils % 86.6 H Lymphocytes % 6.0 L D Monocytes % 7.2 Eosinophils % 0.0 D Basophils % 0.2 Nucleated RBC % 0 Hypochromia 0 Platelet Estimate Normal Polychromasia 1+ Poikilocytosis 1+ Anisocytosis 2+ Microcytosis 1+ Macrocytosis 0 Spherocytes 1+ Target Cells 1+ Tear Drop Cells 1+ ESR Sodium Potassium Chloride Carbon Dioxide Anion Gap BUN Creatinine Est GFR (CKD-EPI)AfAm Est GFR (CKD-EPI)NonAf Random Glucose Hemoglobin A1c % Calcium Phosphorus Magnesium Total Bilirubin AST ALT Alkaline Phosphatase C-Reactive Protein Total Protein Albumin Random Vancomycin 27.6 H 12/24/18 12/24/18 12/24/18 05:10 05:10 05:20 WBC RBC Hgb Hct MCV MCH MCHC RDW Plt Count MPV Absolute Neuts (auto) Neutrophils % Lymphocytes % Monocytes % Eosinophils % Basophils % Nucleated RBC % Hypochromia Platelet Estimate Polychromasia Poikilocytosis Anisocytosis Microcytosis Macrocytosis Spherocytes Target Cells Tear Drop Cells ESR 57 H Sodium 139 Potassium 4.7 Chloride 95 L Carbon Dioxide 36 H Anion Gap 7 L BUN 20.8 H Creatinine 1.2 Est GFR (CKD-EPI)AfAm 75.19 Est GFR (CKD-EPI)NonAf 64.87 Random Glucose 121 H Hemoglobin A1c % 6.7 H Calcium 8.7 Phosphorus 5.1 H Magnesium 1.8 Total Bilirubin 0.5 AST 25 ALT 26 Alkaline Phosphatase 112 C-Reactive Protein 6.0 H Total Protein 7.1 Albumin 3.0 L Random Vancomycin Microbiology 12/23/18 10:30 Wound Wound Culture - Preliminary Presumptive Mrsa (Pbp2a Pos) 12/23/18 10:21 Blood - Peripheral Venous Blood Culture - Preliminary NO GROWTH OBTAINED AFTER 24 HOURS, INCUBATION TO CONTINUE FOR 4 DAYS. 12/23/18 10:15 Blood - Peripheral Venous Blood Culture - Preliminary NO GROWTH OBTAINED AFTER 24 HOURS, INCUBATION TO CONTINUE FOR 4 DAYS. LLE duplex neg for DVT ASSESSMENT AND PLAN: 63 yom with PMHx of Morbid Obesity, Chronic Respiratory Failure sec to COPD (on 2L O2 via NC)/prn prednisone (non compliant), Chronic Diastolic CHF, CAD with [employer] (Coronary Total Occlusion) of RCA, Pulmonary HTN, MR, HTN, GAY, Bilateral LE Lymphedema, Hx osteomyelitis toe 07/2018 s/p 6 weeks ceftriaxone, recently admitted to [facility] 11/2018 with RUE cellulitis treated with zosyn, then augmentin admitted with acute on chronic diastolic heart failure and LLE cellulitis/ osteomyelitis -Acute on chronic diastolic heart failure exacerbation -Left lower extremity cellulitis/Left great toe osteomyelitis -Chronic hypoxic/hypercapneic resipratory failure -Oxygen/dependent COPD, r/o exacerbation -CAD with [employer] (coronary total occlusion) of RCA with angina pectoris -bilateral Lower extremity lymphedema -H/o osteomyelitis left great toe 07/2018 s/p 6 weeks of Ceftriaxone -Pulmonary HTN -HTN -GAY, refused Bipap -recently admitted with RUE cellulitis Plan: Diuresing well. Continue Lasix 40 mg IV BID, cardiology consult Dr. Calzada, Follow up 2D echo. Diet/medication compliance. Strict I/os, daily weights, telemetry. Continue Imdur. LLE duplex neg for DVT. Zosyn/vanco. Wound cx with presumed MRSA. Blood cx so far. Follow up ID input. MRI LLE if patient able. ESR/CRP noted, Follow up Dr. Lopez's input. standing prn nebs, Prednisone 40 mg daily with short taper. Chest PT, humidified oxygen. Pulmonary input noted. On chronic doxycycline, hold. DVTPPX lovenox dc tele in 24 hours if improved and no events. Dispo pending clinical improvement. Discussed with patient and nursing in detail, all questions answered
--- NOTE | 2018-12-24 12:39 | CONS ---
DATE OF CONSULTATION: 12/24/2018 TIME OF CONSULTATION: 10:15 a.m. CONSULTATION REQUESTED BY: Kurtis Hall MD CARDIOLOGY CONSULTATION CHIEF COMPLAINT: 1. Increasing shortness of breath. 2. Increasing pedal edema, especially involving the left lower extremity, associated with increased warmth. 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 Patient also has history of hypertension. Patient was admitted with increasing dyspnea and was unable to even walk short distances. Also noticed that his lower extremities were edematous and there was increased swelling, especially involving the left lower extremity, accompanied by increased warmth. He also complained of increasing cough with thick expectoration, yellowish-greenish in color, and had difficulty in bringing up the expectorant. There is no history of hemoptysis. There is no history of recent chest pain or discomfort. There is no history of palpitations, lightheadedness, dizziness, presyncope, or syncope. The patient is being followed for chronic osteomyelitis involving the left big toe. PAST HISTORY: As mentioned in the history of present illness. SURGICAL HISTORY: 1. Status post I&D involving the left big toe. 2. History of surgery for left pneumothorax. 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 He is . He smoked since the age of 17 until he was 52 years of age and apparently smoked over 1-1/2 packs of cigarettes per day. He has had previous history of alcoholism. States that he currently has rare drink. Drinks 2 to 3 cups of coffee. No history of drug use. FAMILY HISTORY: Mother at the age of 70 following a heart valve replacement. Father at age 85, he had coronary artery disease and was also a diabetic. One brother who is diabetic and has asthma. Has 1 sister. She is a diabetic. ALLERGIES: Patient states that he has had severe dizziness with statins and certain antihypertensive therapy, but cannot recall the name. CURRENT MEDICATIONS: 1. Prednisone 40 mg p.o. daily. 2. Tylenol 650 mg p.o. q.6 h. p.r.n. 3. Piperacillin and tazobactam 4.5 g IV q.8 h. 4. Vancomycin 500 mg IV q.12 h. 5. Lovenox 40 mg subcutaneous daily. 6. Ventolin 1 ampule via nebulizer q.i.d. 7. Ventolin 1 ampule q.4 h. p.r.n. for dyspnea. 8. Iron supplement 325 mg p.o. b.i.d. 9. Singulair 10 mg p.o. nightly. 10. Furosemide 40 mg IV b.i.d. 11. Isosorbide mononitrate 60 mg p.o. daily. REVIEW OF SYSTEMS: Constitutional: No history of chills, fever, night sweats. No history of unintentional weight loss. HEENT: No history of headaches, diplopia, blurred vision. No history of epistaxis, hoarseness, tinnitus or deafness reported. Respiratory: See history of present illness. Cardiovascular: See history of present illness. Gastrointestinal: History of abdominal distention. No history of nausea, vomiting, melena, or hematemesis. History of umbilical hernia. No history of change in bowel habits. Musculoskeletal: History of arthralgias. Endocrine: No history of polyuria, polydipsia, or intolerance to cold or warm weather. Genitourinary: History of frequency. No history of hematuria or urgency nocturia. Hematological: ? history of thalassemia minor. No history of bleeding or ecchymosis. Denies having any recent anemia. EXAMINATION: General: A 63-year-old morbidly obese male, who was in no acute distress. No pallor, cyanosis, clubbing, or jaundice. Vital Signs: Blood pressure 128/78 mmHg. Pulse 94 beats per minute and regular. Temperature 98.1 degrees Fahrenheit. Respirations 20 per minute. Weight 131.542 kg. Oxygen saturation 90% on 3 L of oxygen. Neck: Short, supple. No jugular venous distention. Hepatojugular reflux was negative. Carotids were 2+. Upstrokes were normal. No bruits were heard. Heart: PMI was not localized. No heaves or thrills. S1 was normal. S2 rate was slightly reduced. Grade 2/6 ejection systolic murmur was heard at the 2nd right intercostal space ending in mid systole. There was a grade 3/6 decrescendo systolic murmur heard along the left sternal border and apex radiating towards the left axilla. There was no increase with inspiration. No gallops or rubs were heard. Lungs: Bilaterally decreased breath sounds at the bases. Abdomen: Markedly obese, nontender. No hepatosplenomegaly or palpable masses were felt. There is an umbilical hernia. Bowel sounds were heard. Extremities: There was induration, increased warmth and edema involving the left lower extremity. Left foot was bandaged. No calf tenderness elicited. There were chronic stasis changes involving the right lower extremity, 1+ pitting edema. Dorsalis pedis and posterior tibial pulses could not be palpated. LABORATORY DATA: CBC: WBC on December 24, 2018, was 6700. Hemoglobin 12.6 g. There were microcytic cell indices. Platelet count was 286,000. Differential: Neutrophils 86.6% (elevated), lymphocytes 6.0%, monocytes 7.2%, eosinophils were 0, basophils were 0.2%. Chemistry: Sodium 139, potassium 4.7, chloride 95, CO2 36 mmol/L, BUN 20.8, creatinine 1.2 mg/dL, random glucose was 121 mg/dL, hemoglobin A1c was 6.7%, magnesium was 1.8 mg/dL. On December 23, 2018, CK was 343, troponin was less than 0.02. X-RAY OF CHEST, 2018: Single AP view of the chest revealed a large heart, normal aorta, prominent hilum, and some minimal atelectatic changes in the left lower lung haynes. The bone and soft tissue are intact and the angles are sharp. Correlation recommended. VASCULAR: Venous ultrasound of left lower extremity: Impression: No DVT is identified involving the left leg. ECG is not available. IMPRESSION: 1. Acute exacerbation of chronic obstructive pulmonary disease. 2. Suspect acute on chronic bronchitis. 3. Advanced chronic obstructive pulmonary disease. Cor pulmonale needs exclusion. 4. Coronary artery disease, angina pectoris currently stable. 5. Cellulitis involving the left lower calf. 6. History of osteoarthritis involving the left big toe. 7. Hypertension, hypertensive cardiovascular disease. 8. Severe obstructive sleep apnea syndrome. 9. Aortic valvular disease. Aortic stenosis needs exclusion. 10. Mitral regurgitation needs to be excluded. 11. Tricuspid regurgitation. 12. Morbid obesity. 13. Poor compliance. RECOMMENDATIONS: 1. Concur with current line of treatment. 2. Consider echocardiogram. 3. Risk modification. 4. Continue current cardiac medication. 5. Prognosis guarded. Thank you for your referral. Yours sincerely, RAVI PEREZ M.D. DRAKE/[id number]
--- NOTE | 2018-12-24 13:11 | PN ---
Progress Note, Physician - Current Medication List Current Medications: Active Medications Acetaminophen (Tylenol -) 650 mg PO Q6H PRN PRN Reason: FEVER Albuterol Sulfate (Ventolin 0.083% Nebulizer Soln -) 1 amp NEB RQID [facility] Last Admin: 12/24/18 11:13 Dose: 1 amp Albuterol Sulfate (Ventolin 0.083% Nebulizer Soln -) 1 amp NEB Q4H PRN PRN Reason: SHORT OF BREATH/WHEEZING Enoxaparin Sodium (Lovenox -) 40 mg SQ DAILY [facility] Last Admin: 12/24/18 09:38 Dose: Not Given Ferrous Sulfate (Feosol -) 325 mg PO BIDWM JALYN Last Admin: 12/24/18 09:26 Dose: Not Given Furosemide (Lasix Injection -) 40 mg IVPUSH BID@0600,1400 [facility] Last Admin: 12/24/18 05:48 Dose: 40 mg Vancomycin HCl 1,500 mg/ (Dextrose) 500 mls @ 125 mls/hr IVPB Q12H JALYN; Protocol Last Admin: 12/24/18 12:44 Dose: 125 mls/hr Piperacillin Sod/Tazobactam (Sod 4.5 gm/ Dextrose) 100 mls @ 200 mls/hr IVPB Q8H-IV JALYN; Protocol Last Admin: 12/24/18 09:25 Dose: 200 mls/hr Isosorbide Mononitrate (Imdur -) 60 mg PO HS [facility] Last Admin: 12/23/18 21:36 Dose: 60 mg Montelukast Sodium (Singulair -) 10 mg PO HS [facility] Prednisone (Deltasone -) 40 mg PO DAILY [facility] Last Admin: 12/24/18 09:25 Dose: 40 mg - Objective Vital Signs: Vital Signs Temperature 98.1 F 12/24/18 08:20 Pulse Rate 94 H 12/24/18 08:20 Respiratory Rate 20 12/24/18 08:23 Blood Pressure 128/79 12/24/18 08:20 O2 Sat by Pulse Oximetry (%) 90 L 12/24/18 08:23 Labs: CBC, BMP 12/24/18 05:00 12/24/18 05:10
--- NOTE | 2018-12-24 14:53 | ECHO ---
Name: GEORGIA SHETH Exam:Adult Echocardiogram Study Date: 12/24/2018 10:56 AM Age: 63 yrs Reason For Study: chf Height: 71 in Weight: 300 lb BSA: 2.5 m2 MMode/2D Measurements & Calculations IVSd: 1.1 cm Ao root diam: 4.1 cm LVIDd: 5.0 cm LA dimension: 4.9 cm LVIDs: 3.0 cm ACS: 0.76 cm LVPWd: 0.90 cm IVSs: 1.4 cm LVPWs: 1.3 cm EDV(Teich): 116.8 ml ESV(Liuich): 35.7 ml LVOT diam: 2.1 cm Doppler Measurements & Calculations MV E max mack: 63.7 cm/sec Ao V2 max: 274.8 cm/sec MV A max mack: 99.5 cm/sec Ao max P.3 mmHg MV E/A: 0.64 Ao V2 mean: 208.5 cm/sec Ao mean P.1 mmHg Ao V2 VTI: 56.0 cm JUAN ALBERTO(I,D): 1.5 cm2 JUAN ALBERTO(V,D): 1.2 cm2 LV V1 max P.8 mmHg MR max mack: 387.4 cm/sec LV V1 mean P.7 mmHg MR max P.0 mmHg LV V1 max: 97.6 cm/sec LV V1 mean: 77.8 cm/sec LV V1 VTI: 25.1 cm SV(LVOT): 85.5 ml TR max mack: 348.0 cm/sec TR max P.4 mmHg Med Peak E' Mack: 6.8 cm/sec Med E/e': 9.4 Lat Peak E' Mack: 6.7 cm/sec Lat E/e': 9.5 Procedure A complete two-dimensional transthoracic echocardiogram was performed (2D, M-mode, Doppler and color flow Doppler). Technically limited study. Left Ventricle The left ventricle is normal in size. Left ventricular systolic function is normal. Ejection Fraction = 65- 70%. Grade I diastolic dysfunction, (abnormal relaxation pattern). Ratio E/E'= 10. No regional wall m otion abnormalities noted. Right Ventricle The right ventricle is mild to moderately dilated. The right ventricular systolic function is moderat mateo reduced. Atria The left atrium is moderately dilated. The right atrium is moderate to severely dilated. Mitral Valve There is mild to moderate mitral annular calcification. There is mild mitral regurgitation. Tricuspid Valve The tricuspid valve is normal in structure and function. There is moderate tricuspid regurgitation. P ulmonary artery systolic pressure is at least 57 mmHg if RA pressure is assumed 3 mmHg. Aortic Valve There is moderate aortic valve thickening. Mild valvular aortic stenosis. The calculated aortic valve area using the continuity equation is 1.2 cm2. Aortic mean pressure gradient= 18 mmHg. DI (dimensionless i ndex) is estimated 0.41. No aortic regurgitation is present. Pulmonic Valve The pulmonic valve is not well visualized. Mild pulmonic valvular regurgitation. Great Vessels Moderate aortic root dilatation. Pericardium/Pleura There is no pericardial effusion. Interpretation Summary The left ventricle is normal in size. Left ventricular systolic function is normal. No regional wall motion abnormalities noted. Ejection Fraction = 65-70%. Grade I diastolic dysfunction, (abnormal relaxation pattern). Ratio E/E'= 10 The right ventricle is mild to moderately dilated. The right ventricular systolic function is moderately reduced. The left atrium is moderately dilated. The right atrium is moderate to severely dilated. There is mild to moderate mitral annular calcification. There is mild mitral regurgitation. There is moderate tricuspid regurgitation. Pulmonary artery systolic pressure is at least 57 mmHg if RA pressure is assumed 3 mmHg There is moderate aortic valve thickening. Mild valvular aortic stenosis. The calculated aortic valve area using the continuity equation is 1.2 cm2. Aortic mean pressure gradient= 18 mmHg DI (dimensionless index) is estimated 0.41 No aortic regurgitation is present. Mild pulmonic valvular regurgitation. Moderate aortic root dilatation. There is no pericardial effusion. Carl Coello MD 12/24/2018 02:52 PM
[2018-12-24] MEDS ORDERED: PT OWN MED DRAWER 7, Y5N ONE ×2 (15:49→21:29)
[2018-12-24] MEDS: ISOSORBIDE MONONITRATE 60 MG TAB.SR.24H (FP) PO SCH (22:11)
[2018-12-24] MEDS: MONTELUKAST NA 10 MG TABLET PO SCH (22:11)
[2018-12-25] MEDS ORDERED: PT OWN MED DRAWER 7, Y5N ONE (00:10)
[2018-12-25] MEDS ORDERED: DEXTROSE 5%-WATER 100 ML IVPB ONE ×2 (00:15→07:46)
[2018-12-25] MEDS ORDERED: PIPERACILLIN/TAZOBACTAM 4.5 GM VIAL IVPB ONE ×2 (00:15→07:46)
[2018-12-25] MEDS: VANCOMYCIN HCL 1,500 MG in DEXTROSE 5%-WATER - 500 ML IVPB SCH ×2 (00:18→13:00)
[2018-12-25] MEDS: PIPERACILLIN/TAZOB 4.5 GM 4.5 GM in DEXTROSE 5%-WATER 100 ML IVPB SCH ×2 (01:01→09:38)
[2018-12-25 06:43] LABS: HEMATOCRIT 40.3 % (35.4-49); HEMOGLOBIN 12.5 GM/dL (11.7-16.9); MCH 22.1 pg (25.7-33.7); MCHC 30.9 g/dl (32.0-35.9); MEAN CELL VOLUME 71.3 fl (80-96); MEAN PLT VOLUME 7.9 fl (7.5-11.1); PLATELET COUNT 272 K/MM3 (134-434); RBC 5.65 M/mm3 (4.00-5.60); WHITE BLOOD COUNT 7.1 K/mm3 (4.0-10.0)
[2018-12-25] MEDS: FUROSEMIDE 40 MG/4 ML INJECTABLE VIAL IVPUSH SCH ×2 (06:46→13:59)
[2018-12-25 07:02] LABS: BLOOD UREA NITROGEN 22.1 mg/dL (7-18); CALCIUM 8.8 mg/dL (8.5-10.1); CREATININE 1.2 mg/dL (0.55-1.3); POTASSIUM 4.5 mmol/L (3.5-5.1)
[2018-12-25] MEDS: ALBUTEROL SO4 0.083% IH SOL 2.5 MG/3 ML VIAL.NEB. NEB SCH ×4 (07:49→21:10)
[2018-12-25] MEDS: FERROUS SO4 325 MG TABLET (FP) PO SCH ×2 (08:00→17:14)
[2018-12-25] MEDS: predniSONE 20 MG TABLET (UD) PO SCH (09:38)
[2018-12-25] MEDS: ENOXAPARIN NA (PORCINE) 40 MG/0.4 ML DISP.SYRIN SQ SCH (09:39)
--- NOTE | 2018-12-25 10:40 | PN ---
Teaching Attending Note Name of Resident: Sonu Kamara ATTENDING PHYSICIAN STATEMENT I saw and evaluated the patient. I reviewed the resident's note and discussed the case with the resident. I agree with the resident's findings and plan as documented with exceptions below. SUBJECTIVE: Patient seen and examined. left leg symptoms improved, breathing better, urinating a lot. No new complaints. OBJECTIVE: Vital Signs Period Temp Pulse Resp BP Sys/Santiago Pulse Ox Last 24 Hr 97.5 F-98.3 F 75-98 18-20 117-142/70-79 90-90 Intake & Output 12/22/18 12/23/18 12/24/18 12/25/18 23:59 23:59 23:59 23:59 Intake Total 320 2260 850 Output Total 2500 225 600 Balance -2180 2035 250 Weight 300 lb 290 lb 288 lb 6.4 oz General: sitting in bed, breathing better, less use of accessory muscles of respiration Neck: soft, supple, JVD exam limited by habitus CVS:S1S2 regular Chest: improved fine rales and air entry, no wheezing Abdomen:Soft, obese, NT Extremities: LLE erythema/edema unchanged from yesterday, left great toe dressing (refused exam), ongoing surround erythema and chronic stasis dermatitis and excoriation changes Home Medications Medication Instructions Recorded Prednisone 20 mg PO ASDIR 03/09/17 Albuterol Sulfate [Proair Hfa] 2 puff IH Q4H PRN 07/20/18 Montelukast Na [Singulair -] 10 mg PO DAILY 07/20/18 Arformoterol Tartrate [Brovana -] 1 amp [facility] RBID #1 amp 12/01/18 Doxycycline Hyclate [Vibratab -] 100 mg PO BID #10 tablet 12/01/18 Ferrous Sulfate [Feosol] 325 mg PO BID #60 ud 12/01/18 Isosorbide Mononitrate [Imdur -] 60 mg PO HS #30 tab.sr.24h 12/01/18 Tiotropium [place] [Spiriva 2 puff IH DAILY #1 inhaler 12/01/18 Respimat] Furosemide [Lasix] 20 mg PO ASDIR 12/23/18 Active Medications Acetaminophen (Tylenol -) 650 mg PO Q6H PRN PRN Reason: FEVER Albuterol Sulfate (Ventolin 0.083% Nebulizer Soln -) 1 amp NEB RQID [facility] Last Admin: 12/25/18 07:49 Dose: 1 amp Albuterol Sulfate (Ventolin 0.083% Nebulizer Soln -) 1 amp NEB Q4H PRN PRN Reason: SHORT OF BREATH/WHEEZING Enoxaparin Sodium (Lovenox -) 40 mg SQ DAILY [facility] Last Admin: 12/25/18 09:39 Dose: Not Given Ferrous Sulfate (Feosol -) 325 mg PO BIDWM [facility] Last Admin: 12/25/18 08:00 Dose: Not Given Furosemide (Lasix Injection -) 40 mg IVPUSH BID@0600,1400 [facility] Last Admin: 12/25/18 06:46 Dose: 40 mg Vancomycin HCl 1,500 mg/ (Dextrose) 500 mls @ 125 mls/hr IVPB Q12H [facility]; Protocol Last Admin: 12/25/18 00:18 Dose: 125 mls/hr Piperacillin Sod/Tazobactam (Sod 4.5 gm/ Dextrose) 100 mls @ 200 mls/hr IVPB Q8H-IV [facility]ALYN; Protocol Last Admin: 12/25/18 09:38 Dose: 200 mls/hr Isosorbide Mononitrate (Imdur -) 60 mg PO HS [facility] Last Admin: 12/24/18 22:11 Dose: 60 mg Montelukast Sodium (Singulair -) 10 mg PO HS [facility] Last Admin: 12/24/18 22:11 Dose: 10 mg Prednisone (Deltasone -) 40 mg PO DAILY [facility] Last Admin: 12/25/18 09:38 Dose: 40 mg Laboratory Results - last 24 hr 12/25/18 12/25/18 05:05 05:05 WBC 7.1 RBC 5.65 H Hgb 12.5 Hct 40.3 MCV 71.3 L MCH 22.1 L MCHC 30.9 L RDW 17.0 H Plt Count 272 MPV 7.9 Sodium 137 Potassium 4.5 Chloride 91 L Carbon Dioxide 41 H Anion Gap 5 L BUN 22.1 H Creatinine 1.2 Est GFR (CKD-EPI)AfAm 75.19 Est GFR (CKD-EPI)NonAf 64.87 Random Glucose 101 Calcium 8.8 Microbiology 12/23/18 10:30 Wound Gram Stain - Final 12/23/18 10:30 Wound Wound Culture - Final S Aureus 12/23/18 10:21 Blood - Peripheral Venous Blood Culture - Preliminary NO GROWTH OBTAINED AFTER 24 HOURS, INCUBATION TO CONTINUE FOR 4 DAYS. 12/23/18 10:15 Blood - Peripheral Venous Blood Culture - Preliminary NO GROWTH OBTAINED AFTER 24 HOURS, INCUBATION TO CONTINUE FOR 4 DAYS. ASSESSMENT AND PLAN: 63 yom with PMHx of Morbid Obesity, Chronic Respiratory Failure sec to COPD (on 2L O2 via NC)/prn prednisone (non compliant), Chronic Diastolic CHF, CAD with TRANSMITTER OPERATOR (Coronary Total Occlusion) of RCA, Pulmonary HTN, MR, HTN, GAY, Bilateral LE Lymphedema, Hx osteomyelitis toe 07/2018 s/p 6 weeks ceftriaxone, recently admitted to [facility] 11/2018 with RUE cellulitis treated with zosyn, then augmentin admitted with acute on chronic diastolic heart failure and LLE cellulitis/ osteomyelitis -Acute on chronic diastolic heart failure exacerbation -Left lower extremity cellulitis/Left great toe osteomyelitis -Chronic hypoxic/hypercapneic resipratory failure -Oxygen/dependent COPD, r/o exacerbation -CAD with TRANSMITTER OPERATOR (coronary total occlusion) of RCA with angina pectoris -Bilateral Lower extremity lymphedema/chronic stasis dermatitis -H/O osteomyelitis left great toe 07/2018 s/p 6 weeks of Ceftriaxone -Pulmonary HTN -HTN -GAY, refused Bipap -recently admitted with RUE cellulitis Plan: Diuresing well. Continue Lasix 40 mg IV BID for today, transition to PO In 24-48 hours based on response/renal function. Cardiology input Dr. Calzada. 2D echo noted. Diet/medication compliance. Strict I/os, daily weights, telemetry. Continue Imdur. LLE duplex neg for DVT. Zosyn/vanco. Wound cx with MRSA. Blood cx so far. Foot xray with osteomyelitis, Patient declines MRI as unable to lie flat. Anticipate long treatment with Vancomycin pending Dr. Lopez's input and plan for surgical intervention vs conservative management. Vanco level noted, repeat before afternoon dose, adjust accordingly. standing prn nebs, Prednisone 40 mg daily with short taper, change to 30 mg today. Chest PT, humidified oxygen. Pulmonary input noted. On chronic doxycycline, hold. DVTPPX lovenox Doing well, d/c telemetry. Dispo pending clinical improvement. Anticipate SNF vs home with PICC with IV abx pending improvement in CHF, possible surgical intervention and ID input. Discussed with patient , nursing and case management in detail, all questions answered
--- NOTE | 2018-12-25 10:41 | PN ---
Progress Note (short form) - Note Progress Note: 63-year-old white male with long-standing history of coronary artery disease, angina pectoris, complete total obstruction of the right coronary artery, history of LV diastolic dysfunction, congestive heart failure, hypercholesterolemia, advanced COPD, oxygen-dependent, severe obstructive sleep apnea, history aortic valve disease, mitral regurgitation, chronic bilateral lower extremity venous disease, history of osteoarthritis involving the right toe. Patient also has history of hypertension. Patient was admitted with increasing dyspnea which has been improving on IV diuretics and steroids. The pedal edema is less pronounced. Still has cough with expectoration. No chest pain or discomfort has been reported. The patient is being treated for chronic osteomyelitis involving the left big toe. ALLERGIES: Patient states that he has had severe dizziness with statins and certain antihypertensive therapy, but cannot recall the name. Active Medications Acetaminophen (Tylenol -) 650 mg PO Q6H PRN PRN Reason: FEVER Albuterol Sulfate (Ventolin 0.083% Nebulizer Soln -) 1 amp NEB RQID [facility] Last Admin: 12/25/18 07:49 Dose: 1 amp Albuterol Sulfate (Ventolin 0.083% Nebulizer Soln -) 1 amp NEB Q4H PRN PRN Reason: SHORT OF BREATH/WHEEZING Enoxaparin Sodium (Lovenox -) 40 mg SQ DAILY [facility] Last Admin: 12/25/18 09:39 Dose: Not Given Ferrous Sulfate (Feosol -) 325 mg PO BIDWM [facility] Last Admin: 12/25/18 08:00 Dose: Not Given Furosemide (Lasix Injection -) 40 mg IVPUSH BID@0600,1400 [facility] Last Admin: 12/25/18 06:46 Dose: 40 mg Vancomycin HCl 1,500 mg/ (Dextrose) 500 mls @ 125 mls/hr IVPB Q12H [facility]; Protocol Last Admin: 12/25/18 00:18 Dose: 125 mls/hr Piperacillin Sod/Tazobactam (Sod 4.5 gm/ Dextrose) 100 mls @ 200 mls/hr IVPB Q8H-IV JALYN; Protocol Last Admin: 12/25/18 09:38 Dose: 200 mls/hr Isosorbide Mononitrate (Imdur -) 60 mg PO [facility] Last Admin: 12/24/18 22:11 Dose: 60 mg Montelukast Sodium (Singulair -) 10 mg PO HS [facility] Last Admin: 12/24/18 22:11 Dose: 10 mg Prednisone (Deltasone -) 40 mg PO DAILY [facility] Last Admin: 12/25/18 09:38 Dose: 40 mg REVIEW OF SYSTEMS: Constitutional: No history of chills, fever, night sweats. No history of unintentional weight loss. HEENT: No history of headaches, diplopia, blurred vision. No history of epistaxis, hoarseness, tinnitus or deafness reported. Respiratory: See history of present illness. Cardiovascular: See history of present illness. Gastrointestinal: History of abdominal distention. No history of nausea, vomiting, melena, or hematemesis. History of umbilical hernia. No history of change in bowel habits. Musculoskeletal: History of arthralgias. Endocrine: No history of polyuria, polydipsia, or intolerance to cold or warm weather. Genitourinary: History of frequency. No history of hematuria, urgency or nocturia. Hematological: ? history of thalassemia minor. No history of bleeding or ecchymosis. Denies having any recent anemia. EXAMINATION: General: A 63-year-old morbidly obese male, who was in no acute distress. No pallor, cyanosis, clubbing, or jaundice. Last Vital Signs Temp Pulse Resp BP Pulse Ox 97.5 F L 87 18 139/72 90 L 12/25/18 08:20 12/25/18 08:20 12/25/18 08:21 12/25/18 08:20 12/25/18 08:21 Intake & Output 12/22/18 12/23/18 12/24/18 12/25/18 23:59 23:59 23:59 23:59 Intake Total 320 2260 850 Output Total 2500 225 600 Balance -2180 5 250 Weight 136.078 kg 131.542 kg 130.816 kg Neck: Short, supple. No jugular venous distention. Hepatojugular reflux was negative. Carotids were 2+. Upstrokes were normal. No bruits were heard. Heart: PMI was not localized. No heaves or thrills. S1 was normal. S2 rate was slightly reduced. Grade II/ ejection systolic murmur was heard at the 2nd right intercostal space ending in mid systole. There was a grade III/ decrescendo systolic murmur heard along the left sternal border and apex radiating towards the left axilla. There was no increase with inspiration. No gallops or rubs were heard. Lungs: Bilaterally scattered crepitations and decreased breath sounds at the bases. Abdomen: Markedly obese, nontender. No hepatosplenomegaly or palpable masses were felt. There is an umbilical hernia. Bowel sounds were heard. Extremities: The induration involving the left calf is less pronounced, there is chronic brawny edema. Left foot was bandaged. No calf tenderness elicited. There were chronic stasis changes involving the right lower extremity, 1+ pitting edema. Dorsalis pedis and posterior tibial pulses could not be palpated. CBC, BMP 12/25/18 05:05 12/25/18 05:05 IMPRESSION: 1. Acute exacerbation of chronic obstructive pulmonary disease. 2. Suspect acute on chronic bronchitis. 3. Cor pulmonale needs exclusion. 4. Coronary artery disease, angina pectoris currently stable. 5. Cellulitis involving the left lower calf. 6. History of osteoarthritis involving the left big toe. 7. Hypertension, hypertensive cardiovascular disease. 8. Severe obstructive sleep apnea syndrome. 9. Aortic valvular disease. Aortic stenosis needs exclusion. 10. Mitral regurgitation needs to be excluded. 11. Tricuspid regurgitation. 12. Morbid obesity. 13. Poor compliance. RECOMMENDATIONS: 1. Concur with current line of treatment. 2. Consider echocardiogram. 3. Risk modification. 4. Prognosis guarded. RAVI PEREZ M.D.
--- NOTE | 2018-12-25 11:30 | PN ---
Progress Note, Physician Chief Complaint: pulmonary alert,c/o sob with exertion,cough green sputum - Current Medication List Current Medications: Active Medications Acetaminophen (Tylenol -) 650 mg PO Q6H PRN PRN Reason: FEVER Albuterol Sulfate (Ventolin 0.083% Nebulizer Soln -) 1 amp NEB RQID [facility] Last Admin: 12/25/18 07:49 Dose: 1 amp Albuterol Sulfate (Ventolin 0.083% Nebulizer Soln -) 1 amp NEB Q4H PRN PRN Reason: SHORT OF BREATH/WHEEZING Enoxaparin Sodium (Lovenox -) 40 mg SQ DAILY [facility] Last Admin: 12/25/18 09:39 Dose: Not Given Ferrous Sulfate (Feosol -) 325 mg PO BIDWM [facility] Last Admin: 12/25/18 08:00 Dose: Not Given Furosemide (Lasix Injection -) 40 mg IVPUSH BID@0600,1400 [facility] Last Admin: 12/25/18 06:46 Dose: 40 mg Vancomycin HCl 1,500 mg/ (Dextrose) 500 mls @ 125 mls/hr IVPB Q12H [facility]; Protocol Last Admin: 12/25/18 00:18 Dose: 125 mls/hr Piperacillin Sod/Tazobactam (Sod 4.5 gm/ Dextrose) 100 mls @ 200 mls/hr IVPB Q8H-IV [facility]ALYN; Protocol Last Admin: 12/25/18 09:38 Dose: 200 mls/hr Isosorbide Mononitrate (Imdur -) 60 mg PO HS [facility] Last Admin: 12/24/18 22:11 Dose: 60 mg Montelukast Sodium (Singulair -) 10 mg PO HS [facility] Last Admin: 12/24/18 22:11 Dose: 10 mg Prednisone (Deltasone -) 40 mg PO DAILY [facility] Last Admin: 12/25/18 09:38 Dose: 40 mg - Objective Vital Signs: Vital Signs Temperature 97.5 F L 12/25/18 08:20 Pulse Rate 87 12/25/18 08:20 Respiratory Rate 18 12/25/18 08:21 Blood Pressure 139/72 12/25/18 08:20 O2 Sat by Pulse Oximetry (%) 90 L 12/25/18 08:21 Constitutional: Yes: Well Nourished, Calm, Obese Eyes: Yes: WNL HENT: Yes: WNL Neck: Yes: WNL Cardiovascular: Yes: Regular Rate and Rhythm, S1, S2 Respiratory: Yes: Diminished Gastrointestinal: Yes: Normal Bowel Sounds, Soft Extremities: Yes: WNL Edema: Yes Labs: CBC, BMP 12/25/18 05:05 12/25/18 05:05 Assessment/Plan Problem List - Problems (1) CHF (congestive heart failure) Code(s): I50.9 - HEART FAILURE, UNSPECIFIED Qualifiers: Heart failure type: unspecified Heart failure chronicity: unspecified Qualified Code(s): I50.9 - Heart failure, unspecified (2) Osteomyelitis Code(s): M86.9 - OSTEOMYELITIS, UNSPECIFIED Qualifiers: Osteomyelitis type: unspecified type Osteomyelitis location: foot Laterality: left Qualified Code(s): M86.9 - Osteomyelitis, unspecified (3) Cellulitis Code(s): L03.90 - CELLULITIS, UNSPECIFIED (4) 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 attack Code(s): F06.4 - ANXIETY DISORDER DUE TO KNOWN PHYSIOLOGICAL CONDITION; F41.0 - PANIC DISORDER [EPISODIC PAROXYSMAL ANXIETY] (5) CAD (coronary artery disease) Code(s): I25.10 - ATHSCL HEART DISEASE OF [place] CORONARY ARTERY W/O ANG PCTRS (6) COPD (chronic obstructive pulmonary disease) Code(s): J44.9 - CHRONIC OBSTRUCTIVE PULMONARY DISEASE, UNSPECIFIED (7) Diabetes mellitus Code(s): E11.9 - TYPE 2 DIABETES MELLITUS WITHOUT COMPLICATIONS (8) Lymph edema Code(s): I89.0 - LYMPHEDEMA, NOT ELSEWHERE CLASSIFIED (9) Morbid obesity Code(s): E66.01 - MORBID (SEVERE) OBESITY DUE TO EXCESS CALORIES (10) Pulmonary HTN Code(s): I27.20 - PULMONARY HYPERTENSION, UNSPECIFIED (11) Sleep apnea Code(s): G47.30 - SLEEP APNEA, UNSPECIFIED (12) Stasis dermatitis of both legs Code(s): I87.2 - VENOUS INSUFFICIENCY (CHRONIC) (PERIPHERAL) (13) Venous insufficiency of both lower extremities Code(s): I87.2 - VENOUS INSUFFICIENCY (CHRONIC) (PERIPHERAL) Assessment/Plan Patient reports that he has tried many formulations of BD and the only one that was effective was Albuterol O2 as needed reduce steroids sleep re-evaluation after discharge ABX as per SHONNA Vásqueznox PT refuses bipap DR MCPHERSON
--- NOTE | 2018-12-25 13:35 | PN ---
Progress Note, Physician - Current Medication List Current Medications: Active Medications Acetaminophen (Tylenol -) 650 mg PO Q6H PRN PRN Reason: FEVER Albuterol Sulfate (Ventolin 0.083% Nebulizer Soln -) 1 amp NEB RQID [facility] Last Admin: 12/25/18 11:35 Dose: 1 amp Albuterol Sulfate (Ventolin 0.083% Nebulizer Soln -) 1 amp NEB Q4H PRN PRN Reason: SHORT OF BREATH/WHEEZING Enoxaparin Sodium (Lovenox -) 40 mg SQ DAILY [facility] Last Admin: 12/25/18 09:39 Dose: Not Given Ferrous Sulfate (Feosol -) 325 mg PO BIDWM [facility] Last Admin: 12/25/18 08:00 Dose: Not Given Furosemide (Lasix Injection -) 40 mg IVPUSH BID@0600,1400 [facility] Last Admin: 12/25/18 06:46 Dose: 40 mg Vancomycin HCl 1,500 mg/ (Dextrose) 500 mls @ 125 mls/hr IVPB Q12H [facility]; Protocol Last Admin: 12/25/18 00:18 Dose: 125 mls/hr Isosorbide Mononitrate (Imdur -) 60 mg PO HS [facility] Last Admin: 12/24/18 22:11 Dose: 60 mg Montelukast Sodium (Singulair -) 10 mg PO HS [facility] Last Admin: 12/24/18 22:11 Dose: 10 mg Prednisone (Deltasone -) 30 mg PO DAILY [facility] - Objective Vital Signs: Vital Signs Temperature 97.5 F L 12/25/18 08:20 Pulse Rate 87 12/25/18 08:20 Respiratory Rate 18 12/25/18 08:21 Blood Pressure 139/72 12/25/18 08:20 O2 Sat by Pulse Oximetry (%) 90 L 12/25/18 08:21 Labs: CBC, BMP 12/25/18 05:05 12/25/18 05:05
[2018-12-25] MEDS ORDERED: VANCOMYCIN HCL 1,000 MG in DEXTROSE 5%-WATER - 500 ML IVPB SCH (13:47)
--- NOTE | 2018-12-25 16:21 | PN ---
Progress Note (short form) - Note Progress Note: VAscular Surgery Pt seen and examined. Doing well. Left great toe stable. No pus can be expressed. No cellulitis at this time. Wound cx show MRSA. ID to give antibiotics. No need to drain toe at this time. Fear of introducing infection leading to toe amputation. Spoke to pt at length. Micah Lopez DO
--- NOTE | 2018-12-25 16:52 | PN ---
Physical Exam: SUBJECTIVE: Patient seen and examined at bedside. No new complaints. OBJECTIVE: Vital Signs Period Temp Pulse Resp BP Sys/Santiago Pulse Ox Last 24 Hr 97.5 F-98.3 F 75-96 18-20 129-142/70-82 90-90 Gen: uncomfortable appearing, AAOx3, NAD, morbidly obese HEENT: NCAT, EOMI Neck: thick neck, no jvd noted Pulm: b/l crackles Cardio: rrr, normal s1s2, 4/6 systolic murmur hear throughout Abd: obese, soft, nontender Ext: b/l edema, stasis dermatitis, L foot with dressing in place, pt refused exam of foot Laboratory Results - last 24 hr 12/25/18 12/25/18 12/25/18 05:05 05:05 12:15 WBC 7.1 RBC 5.65 H Hgb 12.5 Hct 40.3 MCV 71.3 L MCH 22.1 L MCHC 30.9 L RDW 17.0 H Plt Count 272 MPV 7.9 Sodium 137 Potassium 4.5 Chloride 91 L Carbon Dioxide 41 H Anion Gap 5 L BUN 22.1 H Creatinine 1.2 Est GFR (CKD-EPI)AfAm 75.19 Est GFR (CKD-EPI)NonAf 64.87 Random Glucose 101 Calcium 8.8 Random Vancomycin 20.4 Active Medications Generic Name Dose Route Start Last Admin Trade Name Freq PRN Reason Stop Dose Admin Acetaminophen 650 mg 12/23/18 14:03 Tylenol - PO Q6H PRN FEVER Albuterol Sulfate 1 amp 12/23/18 16:00 12/25/18 16:02 Ventolin 0.083% Nebulizer Soln - NEB 1 amp RQID JALYN Administration Albuterol Sulfate 1 amp 12/23/18 15:15 Ventolin 0.083% Nebulizer Soln - NEB Q4H PRN SHORT OF BREATH/WHEEZING Enoxaparin Sodium 40 mg 12/24/18 10:00 12/25/18 09:39 Lovenox - SQ Not Given DAILY JALYN Ferrous Sulfate 325 mg 12/23/18 17:30 12/25/18 08:00 Feosol - PO Not Given BIDWM JALYN Furosemide 40 mg 12/24/18 06:00 12/25/18 13:59 Lasix Injection - IVPUSH 40 mg BID@0600,1400 J[facility] Administration Vancomycin HCl 1,000 mg in 250 mls @ 166.667 mls/hr 12/25/18 22:00 Vancomycin (Pre-Docked) IVPB Q12H JALYN Protocol Isosorbide Mononitrate 60 mg 12/23/18 22:00 12/24/18 22:11 Imdur - PO 60 mg HS [facility]ALYN Administration Montelukast Sodium 10 mg 12/24/18 22:00 12/24/18 22:11 Singulair - PO 10 mg HS [facility]YN Administration Prednisone 30 mg 12/26/18 10:00 Deltasone - PO DAILY [facility] ASSESSMENT/PLAN: 63 yom with PMHx of Morbid Obesity, Chronic Respiratory Failure sec to COPD (on 2L O2 via NC)/prn prednisone (non compliant), Chronic Diastolic CHF, CAD with Coronary Total Occlusion of RCA, Pulmonary HTN, MR, HTN, GAY, Bilateral LE Lymphedema, Hx osteomyelitis toe 07/2018 s/p 6 weeks ceftriaxone, recently admitted to [facility] 11/2018 with RUE cellulitis treated with zosyn, then augmentin, followed at wound care comes with progressive dyspnea, orthopnea/PNA, leg swelling, bloating, cough with whitish sputum #Acute on chronic diastolic heart failure exacerbation -worsening sob and leg swelling -Cardio on board -c/w lasix #Left lower extremity cellulitis/Left great toe osteomyelitis -chronic lymphedema -H/o osteomyelitis left great toe 07/2018 s/p 6 weeks of Ceftriaxone -seen by vascular surg. No intervention at this time -Abx per ID -c/w vanc #Chronic hypoxic/hypercapneic resipratory failure -Pulm on board -Pt refusing many therapies including bilevel #stable CAD with LOG MARKER (coronary total occlusion) of RCA with angina pectoris -no intervention at this time -cardio on board #Pulmonary HTN -likely 2/2 COPD -stable -pulm pressure 57mmHg on echo #HTN -BP controlled #GAY -refused Bipap -Pulm on board -should have sleep studies Visit type - Emergency Visit Emergency Visit: No - New Patient This patient is new to me today: No - Critical Care Critical Care patient: No ATTENDING PHYSICIAN STATEMENT I saw and evaluated the patient. I reviewed the resident's note and discussed the case with the resident. I agree with the resident's findings and plan as documented. SUBJECTIVE: OBJECTIVE: ASSESSMENT AND PLAN:
[2018-12-25] MEDS: ISOSORBIDE MONONITRATE 60 MG TAB.SR.24H (FP) PO SCH (21:38)
[2018-12-25] MEDS: MONTELUKAST NA 10 MG TABLET PO SCH (21:38)
[2018-12-25] MEDS: VANCOMYCIN 1 GRAM (PRE-DOCKED) 1,000 MG/250 ML BAG IVPB SCH (21:39)
[2018-12-26] MEDS: FUROSEMIDE 40 MG/4 ML INJECTABLE VIAL IVPUSH SCH ×2 (06:20→14:33)
[2018-12-26 08:11] LABS: HEMATOCRIT 40.3 % (35.4-49); HEMOGLOBIN 12.5 GM/dL (11.7-16.9); MEAN CELL VOLUME 71.2 fl (80-96); MEAN PLT VOLUME 7.7 fl (7.5-11.1); PLATELET COUNT 266 K/MM3 (134-434); RBC 5.66 M/mm3 (4.00-5.60); RDW 16.8 % (11.9-15.9); WHITE BLOOD COUNT 6.8 K/mm3 (4.0-10.0)
[2018-12-26] MEDS: FERROUS SO4 325 MG TABLET (FP) PO SCH ×2 (08:39→17:06)
[2018-12-26 08:46] LABS: BLOOD UREA NITROGEN 24.1 mg/dL (7-18); CREATININE 1.2 mg/dL (0.55-1.3); POTASSIUM 4.5 mmol/L (3.5-5.1)
[2018-12-26] MEDS: ALBUTEROL SO4 0.083% IH SOL 2.5 MG/3 ML VIAL.NEB. NEB SCH ×4 (09:12→20:52)
[2018-12-26] MEDS ORDERED: predniSONE 10 MG TABLET (UD) PO SCH (10:00)
[2018-12-26] MEDS: ENOXAPARIN NA (PORCINE) 40 MG/0.4 ML DISP.SYRIN SQ SCH (10:02)
[2018-12-26] MEDS: VANCOMYCIN 1 GRAM (PRE-DOCKED) 1,000 MG/250 ML BAG IVPB SCH (10:02)
--- NOTE | 2018-12-26 10:43 | PN ---
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 Patient also has history of hypertension. patient volunteered the information that he was taking Lasix every other day AGAINST MEDICAL ADVICE. He has minimal shortness of breath at rest, there is significant decrease in edema involving the left lower extremity. No history of paroxysmal nocturnal dyspnea or orthopnea reported. No palpitations, lightheadedness, dizziness or presyncope. ALLERGIES: ? Statins. Active Medications Acetaminophen (Tylenol -) 650 mg PO Q6H PRN PRN Reason: FEVER Albuterol Sulfate (Ventolin 0.083% Nebulizer Soln -) 1 amp NEB RQID [facility] Last Admin: 12/26/18 09:12 Dose: 1 amp Albuterol Sulfate (Ventolin 0.083% Nebulizer Soln -) 1 amp NEB Q4H PRN PRN Reason: SHORT OF BREATH/WHEEZING Enoxaparin Sodium (Lovenox -) 40 mg SQ DAILY [facility] Last Admin: 12/26/18 10:02 Dose: Not Given Ferrous Sulfate (Feosol -) 325 mg PO BIDWM [facility] Last Admin: 12/26/18 08:39 Dose: Not Given Furosemide (Lasix Injection -) 40 mg IVPUSH BID@0600,1400 [facility] Last Admin: 12/26/18 06:20 Dose: 40 mg Vancomycin HCl (Vancomycin (Pre-Docked)) 1,000 mg in 250 mls @ 166.667 mls/hr IVPB Q12H [facility]; Protocol Last Admin: 12/26/18 10:02 Dose: 166.667 mls/hr Isosorbide Mononitrate (Imdur -) 60 mg PO HS [facility] Last Admin: 12/25/18 21:38 Dose: 60 mg Montelukast Sodium (Singulair -) 10 mg PO HS [facility] Last Admin: 12/25/18 21:38 Dose: 10 mg Prednisone (Deltasone -) 30 mg PO DAILY [facility] Last Admin: 12/26/18 10:02 Dose: 30 mg REVIEW OF SYSTEMS: Constitutional: No history of chills, fever, night sweats. No history of unintentional weight loss. HEENT: No history of headaches, diplopia, blurred vision. No history of epistaxis, hoarseness, tinnitus or deafness reported. Respiratory: See history of present illness. Cardiovascular: See history of present illness. Gastrointestinal: History of abdominal distention. No history of nausea, vomiting, melena, or hematemesis. History of umbilical hernia. No history of change in bowel habits. Musculoskeletal: History of arthralgias. Endocrine: No history of polyuria, polydipsia, or intolerance to cold or warm weather. Genitourinary: History of frequency. No history of hematuria, urgency or nocturia. Hematological: ? history of thalassemia minor. No history of bleeding or ecchymosis. Denies having any recent anemia. EXAMINATION: General: A 63-year-old morbidly obese male, who was in no acute distress. No pallor, cyanosis, clubbing, or jaundice. Last Vital Signs Temp Pulse Resp BP Pulse Ox 97.6 F 87 18 120/74 90 L 12/26/18 06:00 12/26/18 06:00 12/26/18 06:00 12/26/18 06:00 12/25/18 21:00 Intake & Output 12/23/18 12/24/18 12/25/18 12/26/18 23:59 23:59 23:59 23:59 Intake Total 320 2260 2070 500 Output Total 2500 225 2850 Balance -2180 2035 -780 500 Weight 136.078 kg 131.542 kg 130.816 kg 130.589 kg Neck: Short, supple. No jugular venous distention. Hepatojugular reflux was negative. Carotids were 2+. Upstrokes were normal. No bruits were heard. Heart: PMI was not localized. No heaves or thrills. S1 was normal. S2 rate was slightly reduced. Grade II/ ejection systolic murmur was heard at the 2nd right intercostal space ending in mid systole. There was a grade III/ decrescendo systolic murmur heard along the left sternal border and apex radiating towards the left axilla. There was no increase with inspiration. No gallops or rubs were heard. Lungs: Scattered right basilar crepitations and decreased breath sounds at the bases. Abdomen: Markedly obese, nontender. No hepatosplenomegaly or palpable masses were felt. There is an umbilical hernia. Bowel sounds were heard. Extremities: Induration involving the left calf is less pronounced, there is chronic brawny edema. Left foot was bandaged. No calf tenderness elicited. There were chronic stasis changes involving the right lower extremity, 1+ pitting edema. Dorsalis pedis and posterior tibial pulses could not be palpated. IMPRESSION: 1. Acute exacerbation of chronic obstructive pulmonary disease. 2. Suspect acute on chronic bronchitis. 3. Cor pulmonale needs exclusion. 4. Coronary artery disease, angina pectoris currently stable. 5. Cellulitis involving the left lower calf. 6. History of osteomyelitis involving the left big toe. 7. Hypertension, hypertensive cardiovascular disease. 8. Severe obstructive sleep apnea syndrome. 9. Aortic valvular disease. Aortic stenosis needs exclusion. 10. Mitral regurgitation needs to be excluded. 11. Tricuspid regurgitation. 12. Morbid obesity. 13. Poor compliance. RECOMMENDATIONS: 1. continue medications as outlined. 2. Follow-up CBC and BMP. 3. Counseled that he must take his medications as prescribed, including diuretics. RAVI PEREZ M.D.
--- NOTE | 2018-12-26 11:28 | PN ---
Progress Note, Physician History of Present Illness: pulmonary alert,sitting up in bed,less dyspneic - Current Medication List Current Medications: Active Medications Acetaminophen (Tylenol -) 650 mg PO Q6H PRN PRN Reason: FEVER Albuterol Sulfate (Ventolin 0.083% Nebulizer Soln -) 1 amp NEB RQID [facility] Last Admin: 12/26/18 09:12 Dose: 1 amp Albuterol Sulfate (Ventolin 0.083% Nebulizer Soln -) 1 amp NEB Q4H PRN PRN Reason: SHORT OF BREATH/WHEEZING Enoxaparin Sodium (Lovenox -) 40 mg SQ DAILY [facility] Last Admin: 12/26/18 10:02 Dose: Not Given Ferrous Sulfate (Feosol -) 325 mg PO BIDWM [facility] Last Admin: 12/26/18 08:39 Dose: Not Given Furosemide (Lasix Injection -) 40 mg IVPUSH BID@0600,1400 [facility] Last Admin: 12/26/18 06:20 Dose: 40 mg Vancomycin HCl (Vancomycin (Pre-Docked)) 1,000 mg in 250 mls @ 166.667 mls/hr IVPB Q12H [facility]; Protocol Last Admin: 12/26/18 10:02 Dose: 166.667 mls/hr Isosorbide Mononitrate (Imdur -) 60 mg PO HS [facility] Last Admin: 12/25/18 21:38 Dose: 60 mg Montelukast Sodium (Singulair -) 10 mg PO HS [facility] Last Admin: 12/25/18 21:38 Dose: 10 mg Prednisone (Deltasone -) 30 mg PO DAILY [facility] Last Admin: 12/26/18 10:02 Dose: 30 mg - Objective Vital Signs: Vital Signs Temperature 97.6 F 12/26/18 06:00 Pulse Rate 87 12/26/18 06:00 Respiratory Rate 18 12/26/18 06:00 Blood Pressure 120/74 12/26/18 06:00 O2 Sat by Pulse Oximetry (%) 90 L 12/25/18 21:00 Constitutional: Yes: Well Nourished, Obese Eyes: Yes: WNL HENT: Yes: WNL Neck: Yes: WNL Cardiovascular: Yes: Regular Rate and Rhythm, S1, S2 Respiratory: Yes: Diminished Gastrointestinal: Yes: Normal Bowel Sounds, Soft Extremities: Yes: WNL Edema: Yes Labs: CBC, BMP 12/26/18 05:30 12/26/18 05:30 - ....Imaging Other: Report Reviewed Assessment/Plan Problem List - Problems (1) CHF (congestive heart failure) Code(s): I50.9 - HEART FAILURE, UNSPECIFIED Qualifiers: Heart failure type: unspecified Heart failure chronicity: unspecified Qualified Code(s): I50.9 - Heart failure, unspecified (2) Osteomyelitis Code(s): M86.9 - OSTEOMYELITIS, UNSPECIFIED Qualifiers: Osteomyelitis type: unspecified type Osteomyelitis location: foot Laterality: left Qualified Code(s): M86.9 - Osteomyelitis, unspecified (3) Cellulitis Code(s): L03.90 - CELLULITIS, UNSPECIFIED (4) 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 attack Code(s): F06.4 - ANXIETY DISORDER DUE TO KNOWN PHYSIOLOGICAL CONDITION; F41.0 - PANIC DISORDER [EPISODIC PAROXYSMAL ANXIETY] (5) CAD (coronary artery disease) Code(s): I25.10 - ATHSCL HEART DISEASE OF [place] CORONARY ARTERY W/O ANG PCTRS (6) COPD (chronic obstructive pulmonary disease) Code(s): J44.9 - CHRONIC OBSTRUCTIVE PULMONARY DISEASE, UNSPECIFIED (7) Diabetes mellitus Code(s): E11.9 - TYPE 2 DIABETES MELLITUS WITHOUT COMPLICATIONS (8) Lymph edema Code(s): I89.0 - LYMPHEDEMA, NOT ELSEWHERE CLASSIFIED (9) Morbid obesity Code(s): E66.01 - MORBID (SEVERE) OBESITY DUE TO EXCESS CALORIES (10) Pulmonary HTN Code(s): I27.20 - PULMONARY HYPERTENSION, UNSPECIFIED (11) Sleep apnea Code(s): G47.30 - SLEEP APNEA, UNSPECIFIED (12) Stasis dermatitis of both legs Code(s): I87.2 - VENOUS INSUFFICIENCY (CHRONIC) (PERIPHERAL) (13) Venous insufficiency of both lower extremities Code(s): I87.2 - VENOUS INSUFFICIENCY (CHRONIC) (PERIPHERAL) Assessment/Plan Patient reports that he has tried many formulations of BD and the only one that was effective was Albuterol O2 as needed reduce steroids sleep re-evaluation after discharge ABX as per ID Echo Lasix Lovenox PT refuses bipap DR MCPHERSON
--- NOTE | 2018-12-26 11:39 | PN ---
Progress Note, Physician History of Present Illness: pulmonary alert,sitting up in bed,less dyspneic - Current Medication List Current Medications: Active Medications Acetaminophen (Tylenol -) 650 mg PO Q6H PRN PRN Reason: FEVER Albuterol Sulfate (Ventolin 0.083% Nebulizer Soln -) 1 amp NEB RQID [facility] Last Admin: 12/26/18 09:12 Dose: 1 amp Albuterol Sulfate (Ventolin 0.083% Nebulizer Soln -) 1 amp NEB Q4H PRN PRN Reason: SHORT OF BREATH/WHEEZING Enoxaparin Sodium (Lovenox -) 40 mg SQ DAILY [facility] Last Admin: 12/26/18 10:02 Dose: Not Given Ferrous Sulfate (Feosol -) 325 mg PO BIDWM [facility] Last Admin: 12/26/18 08:39 Dose: Not Given Furosemide (Lasix Injection -) 40 mg IVPUSH BID@0600,1400 [facility] Last Admin: 12/26/18 06:20 Dose: 40 mg Vancomycin HCl (Vancomycin (Pre-Docked)) 1,000 mg in 250 mls @ 166.667 mls/hr IVPB Q12H [facility]; Protocol Last Admin: 12/26/18 10:02 Dose: 166.667 mls/hr Isosorbide Mononitrate (Imdur -) 60 mg PO HS [facility] Last Admin: 12/25/18 21:38 Dose: 60 mg Montelukast Sodium (Singulair -) 10 mg PO HS [facility] Last Admin: 12/25/18 21:38 Dose: 10 mg Prednisone (Deltasone -) 20 mg PO DAILY [facility] - Objective Vital Signs: Vital Signs Temperature 97.6 F 12/26/18 06:00 Pulse Rate 87 12/26/18 06:00 Respiratory Rate 18 12/26/18 06:00 Blood Pressure 120/74 12/26/18 06:00 O2 Sat by Pulse Oximetry (%) 90 L 12/25/18 21:00 Constitutional: Yes: Calm, Obese Eyes: Yes: WNL HENT: Yes: WNL Neck: Yes: WNL Cardiovascular: Yes: Regular Rate and Rhythm, S1, S2 Respiratory: Yes: Diminished Gastrointestinal: Yes: Normal Bowel Sounds, Soft Extremities: Yes: WNL Edema: Yes Labs: CBC, BMP 12/26/18 05:30 12/26/18 05:30 - ....Imaging Other: Report Reviewed (echo report noted) Assessment/Plan Problem List - Problems (1) CHF (congestive heart failure) Code(s): I50.9 - HEART FAILURE, UNSPECIFIED Qualifiers: Heart failure type: unspecified Heart failure chronicity: unspecified Qualified Code(s): I50.9 - Heart failure, unspecified (2) Osteomyelitis Code(s): M86.9 - OSTEOMYELITIS, UNSPECIFIED Qualifiers: Osteomyelitis type: unspecified type Osteomyelitis location: foot Laterality: left Qualified Code(s): M86.9 - Osteomyelitis, unspecified (3) Cellulitis Code(s): L03.90 - CELLULITIS, UNSPECIFIED (4) 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 attack Code(s): F06.4 - ANXIETY DISORDER DUE TO KNOWN PHYSIOLOGICAL CONDITION; F41.0 - PANIC DISORDER [EPISODIC PAROXYSMAL ANXIETY] (5) CAD (coronary artery disease) Code(s): I25.10 - ATHSCL HEART DISEASE OF [place] CORONARY ARTERY W/O ANG PCTRS (6) COPD (chronic obstructive pulmonary disease) Code(s): J44.9 - CHRONIC OBSTRUCTIVE PULMONARY DISEASE, UNSPECIFIED (7) Diabetes mellitus Code(s): E11.9 - TYPE 2 DIABETES MELLITUS WITHOUT COMPLICATIONS (8) Lymph edema Code(s): I89.0 - LYMPHEDEMA, NOT ELSEWHERE CLASSIFIED (9) Morbid obesity Code(s): E66.01 - MORBID (SEVERE) OBESITY DUE TO EXCESS CALORIES (10) Pulmonary HTN Code(s): I27.20 - PULMONARY HYPERTENSION, UNSPECIFIED (11) Sleep apnea Code(s): G47.30 - SLEEP APNEA, UNSPECIFIED (12) Stasis dermatitis of both legs Code(s): I87.2 - VENOUS INSUFFICIENCY (CHRONIC) (PERIPHERAL) (13) Venous insufficiency of both lower extremities Code(s): I87.2 - VENOUS INSUFFICIENCY (CHRONIC) (PERIPHERAL) Assessment/Plan Patient reports that he has tried many formulations of BD and the only one that was effective was Albuterol O2 as needed taper prednisone ABX as per ID Lasix Lovenox PT refuses bipap DR MCPHERSON
--- NOTE | 2018-12-26 11:55 | PN ---
Progress Note, Physician History of Present Illness: stable improving vascular note noted - Current Medication List Current Medications: Active Medications Acetaminophen (Tylenol -) 650 mg PO Q6H PRN PRN Reason: FEVER Albuterol Sulfate (Ventolin 0.083% Nebulizer Soln -) 1 amp NEB RQID [facility] Last Admin: 12/26/18 09:12 Dose: 1 amp Albuterol Sulfate (Ventolin 0.083% Nebulizer Soln -) 1 amp NEB Q4H PRN PRN Reason: SHORT OF BREATH/WHEEZING Enoxaparin Sodium (Lovenox -) 40 mg SQ DAILY [facility] Last Admin: 12/26/18 10:02 Dose: Not Given Ferrous Sulfate (Feosol -) 325 mg PO BIDWM [facility] Last Admin: 12/26/18 08:39 Dose: Not Given Furosemide (Lasix Injection -) 40 mg IVPUSH BID@0600,1400 [facility] Last Admin: 12/26/18 06:20 Dose: 40 mg Vancomycin HCl (Vancomycin (Pre-Docked)) 1,000 mg in 250 mls @ 166.667 mls/hr IVPB Q12H [facility]; Protocol Last Admin: 12/26/18 10:02 Dose: 166.667 mls/hr Isosorbide Mononitrate (Imdur -) 60 mg PO HS [facility] Last Admin: 12/25/18 21:38 Dose: 60 mg Montelukast Sodium (Singulair -) 10 mg PO HS [facility] Last Admin: 12/25/18 21:38 Dose: 10 mg Prednisone (Deltasone -) 20 mg PO DAILY [facility] - Objective Vital Signs: Vital Signs Temperature 97.8 F 12/26/18 10:00 Pulse Rate 82 12/26/18 10:00 Respiratory Rate 22 H 12/26/18 10:00 Blood Pressure 126/90 12/26/18 10:00 O2 Sat by Pulse Oximetry (%) 90 L 12/25/18 21:00 Constitutional: Yes: No Distress, Calm Cardiovascular: Yes: S1, S2 Respiratory: Yes: Regular, On Nasal O2, Poor Air Entry Gastrointestinal: Yes: Normal Bowel Sounds, Soft Musculoskeletal: Yes: WNL Extremities: Yes: Other Wound/Incision: Yes: Dressing Dry and Intact Neurological: Yes: Alert, Oriented Labs: CBC, BMP 12/26/18 05:30 12/26/18 05:30 Assessment/Plan Problem List - Problems (1) CHF (congestive heart failure) Code(s): I50.9 - HEART FAILURE, UNSPECIFIED Qualifiers: Heart failure type: unspecified Heart failure chronicity: unspecified Qualified Code(s): I50.9 - Heart failure, unspecified (2) Osteomyelitis Code(s): M86.9 - OSTEOMYELITIS, UNSPECIFIED Qualifiers: Osteomyelitis type: unspecified type Osteomyelitis location: foot Laterality: left Qualified Code(s): M86.9 - Osteomyelitis, unspecified (3) Cellulitis Code(s): L03.90 - CELLULITIS, UNSPECIFIED (4) 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 attack Code(s): F06.4 - ANXIETY DISORDER DUE TO KNOWN PHYSIOLOGICAL CONDITION; F41.0 - PANIC DISORDER [EPISODIC PAROXYSMAL ANXIETY] (5) CAD (coronary artery disease) Code(s): I25.10 - ATHSCL HEART DISEASE OF [place] CORONARY ARTERY W/O ANG PCTRS (6) COPD (chronic obstructive pulmonary disease) Code(s): J44.9 - CHRONIC OBSTRUCTIVE PULMONARY DISEASE, UNSPECIFIED (7) Lymph edema Code(s): I89.0 - LYMPHEDEMA, NOT ELSEWHERE CLASSIFIED (8) Morbid obesity Code(s): E66.01 - MORBID (SEVERE) OBESITY DUE TO EXCESS CALORIES (9) Sleep apnea Code(s): G47.30 - SLEEP APNEA, UNSPECIFIED (10) Stasis dermatitis of both legs Code(s): I87.2 - VENOUS INSUFFICIENCY (CHRONIC) (PERIPHERAL) Assessment/Plan SOB/ECHOLS LLE cellulitis r/o Lt toe abscess/OM (previously treated with 6 wks IV antibiotics) COPD ?Atelectasis vs PNA plan continue vanco cx results noted will need abx for couple of weeks vanco dose adjusted will recheck trough
[2018-12-26] MEDS: FUROSEMIDE 40 MG TABLET (FP) PO SCH (17:06)
--- NOTE | 2018-12-26 17:16 | PN ---
Teaching Attending Note Name of Resident: Sonu Kamara ATTENDING PHYSICIAN STATEMENT I saw and evaluated the patient. I reviewed the resident's note and discussed the case with the resident. I agree with the resident's findings and plan as documented. Please see resident DC summary for full discussion. Seen and examined; no new complaints. He tells me he was not taking his lasix at home and noted improvement while inpatient with his weight and leg swelling. Echo reviewed; shows GI Diastolic Dysfunction. Moved to 40mg PO QD for HFpEF. He has home O2 and is at his baseline requirements per the patient. 10 sys ROS done and negative aside from HPI VS, labs, imaging reviewed NAD, AAO, resting in bed NC AT EOMI PERRLA PVD changes noted b/l sym, some varicosity. Wound without pus, cellulitis appears to be slightly improved based on prior descriptions and discusson with ID and resident team. RRR s1/2 Lungs with good air movement, scattered mild wheezes, w/ sym exp CN2-12 wnl, no fnd Normal mood, appropriate behavior. Reviewed echo Reviewed all consults: Vascular, CV, ID, Pulmonary Reviewed PMH: Chronic Respiratory Failure sec to COPD (on 2L O2 via NC), Chronic Diastolic CHF, CAD with DENTURE FINISHER (Coronary Total Occlusion) of RCA, Pulmonary HTN, MR, HTN, AGY (not using CPAP), Bilateral LE Lymphedema, and osteomyelitis toe 07/2018 s/p 6 weeks ceftriaxone. Noted patient treatment refusal with BiPap; he didn't wish to discuss if he had sleep study done in the past as he stated he won't ever use BiPap. Hospital Course: 1) LE Cellulitis with hx osteomyelitis; discussed with Dr. Davenport and will complete a 2-week course of PO Linezolid 600mg BID. 2) Chronic HFpEF with subacute decompensation 2/2 medication noncompliance. Now 40mg PO Lasix QD with monitoring of QD weights and strict Is and Os. Continue Imdur. Grade I diastolic dysfunction noted. 3) Chronic COPD on steroid taper per pulmonary; continue home bronchodilators. OP PFTs; consider pulmonary rehabilitation services while at [facility]. 4) Peripheral Vascular Disease; followup with vascular. No indication for inpatient procedure per transportation sales consultant. Followups per DC instructions Other chronic problems per resident note Diet: Resume home diet Activity: As tolerated Dispo: [facility] x2 weeks. While he is there I have alerted Mr. Hagan to assess if he would benefit from pulmonary rehabilitation. [place] Meds: Linezolid 600 BID x2 weeks, Furosemide 40mg PO QD Medication reconciliation pending per resident documentation. Full Code
[2018-12-26] MEDS: ISOSORBIDE MONONITRATE 60 MG TAB.SR.24H (FP) PO SCH (21:03)
[2018-12-26] MEDS: MONTELUKAST NA 10 MG TABLET PO SCH (21:03)
[2018-12-26] MEDS: LINEZOLID 600 MG TABLET (RESTRICTED TO ID) PO SCH (21:03)
[2018-12-26] MEDS ORDERED: LINEZOLID 100 MG/5 ML BTL (RESTRICTED TO ID) PO SCH (22:00)
--- NOTE | 2018-12-27 09:07 | PN ---
Teaching Attending Note Name of Resident: Sonu Kamara ATTENDING PHYSICIAN STATEMENT I saw and evaluated the patient. I reviewed the resident's note and discussed the case with the resident. I agree with the resident's findings and plan as documented. Continues to do well; due to him being on lovenox it would delay getting PICC line; changed to BID Zyvox. He has uncontrolled pulmonary illness on home O2 with some issues with underlying medication complaince. Spoke with Mr. Hagan from [facility] and they will be happy to provide him with pulmonary rehab services as well. He was formally DCd yesterday but there were issues bringing him to facility. Updated case management and will discharge patient. 10 sys ROS done and negative aside from HPI VS, labs, imaging reviewed NAD, AAO, resting in bed NC AT EOMI PERRLA PVD changes noted b/l sym, some varicosity. Wound without pus, cellulitis appears to be slightly improved based on prior descriptions and discusson with ID and resident team. RRR s1/2 Lungs with good air movement, scattered mild wheezes, w/ sym exp CN2-12 wnl, no fnd Normal mood, appropriate behavior. Reviewed echo Reviewed all consults: Vascular, CV, ID, Pulmonary Reviewed PMH: Chronic Respiratory Failure sec to COPD (on 2L O2 via NC), Chronic Diastolic CHF, CAD with [place] WASH[employer] PILER (Coronary Total Occlusion) of RCA, Pulmonary HTN, MR, HTN, GAY (not using CPAP), Bilateral LE Lymphedema, and osteomyelitis toe 07/2018 s/p 6 weeks ceftriaxone. Noted patient treatment refusal with BiPap; he didn't wish to discuss if he had sleep study done in the past as he stated he won't ever use BiPap. Hospital Course: 1) LE Cellulitis with hx osteomyelitis; discussed with Dr. Davenport and will complete a 2-week course of PO Linezolid 600mg BID. 2) Chronic HFpEF with subacute decompensation 2/2 medication noncompliance. Now 40mg PO Lasix QD with monitoring of QD weights and strict Is and Os. Continue Imdur. Grade I diastolic dysfunction noted. 3) Chronic COPD on steroid taper per pulmonary; continue home bronchodilators. OP PFTs; consider pulmonary rehabilitation services while at [facility]. 4) Peripheral Vascular Disease; followup with vascular. No indication for inpatient procedure per it systems analyst consultant. Please see yesterday's documentation for full DC summary
[2018-12-27] MEDS ORDERED: predniSONE 20 MG TABLET (UD) PO SCH (10:00)
[2018-12-27] MEDS: FERROUS SO4 325 MG TABLET (FP) PO SCH ×2 (10:00→18:32)
--- NOTE | 2018-12-27 10:34 | PN ---
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 Patient also has history of hypertension. patient volunteered the information that he was taking Lasix every other day AGAINST MEDICAL ADVICE. He has minimal shortness of breath at rest, there is significant decrease in edema involving the left lower extremity. No history of paroxysmal nocturnal dyspnea or orthopnea reported. No palpitations, lightheadedness, dizziness or presyncope. ALLERGIES: ? Statins. Active Medications Acetaminophen (Tylenol -) 650 mg PO Q6H PRN PRN Reason: FEVER Albuterol Sulfate (Ventolin 0.083% Nebulizer Soln -) 1 amp NEB RQID [facility] Last Admin: 12/26/18 20:52 Dose: 1 amp Albuterol Sulfate (Ventolin 0.083% Nebulizer Soln -) 1 amp NEB Q4H PRN PRN Reason: SHORT OF BREATH/WHEEZING Ferrous Sulfate (Feosol -) 325 mg PO BIDWM [facility] Last Admin: 12/26/18 17:06 Dose: Not Given Furosemide (Lasix -) 40 mg PO DAILY [facility] Last Admin: 12/26/18 17:06 Dose: Not Given Isosorbide Mononitrate (Imdur -) 60 mg PO [facility] Last Admin: 12/26/18 21:03 Dose: 60 mg Linezolid (Zyvox (Restricted To Id) -) 600 mg PO BID [facility] Last Admin: 12/26/18 21:03 Dose: 600 mg Montelukast Sodium (Singulair -) 10 mg PO [facility] Last Admin: 12/26/18 21:03 Dose: 10 mg Prednisone (Deltasone -) 20 mg PO DAILY [facility] REVIEW OF SYSTEMS: Constitutional: No history of chills, fever, night sweats. No history of unintentional weight loss. HEENT: No history of headaches, diplopia, blurred vision. No history of epistaxis, hoarseness, tinnitus or deafness reported. Respiratory: See history of present illness. Cardiovascular: See history of present illness. Gastrointestinal: History of abdominal distention. No history of nausea, vomiting, melena, or hematemesis. History of umbilical hernia. No history of change in bowel habits. Musculoskeletal: History of arthralgias. Endocrine: No history of polyuria, polydipsia, or intolerance to cold or warm weather. Genitourinary: History of frequency. No history of hematuria, urgency or nocturia. Hematological: ? history of thalassemia minor. No history of bleeding or ecchymosis. Denies having any recent anemia. EXAMINATION: General: A 63-year-old morbidly obese male, who was in no acute distress. No pallor, cyanosis, clubbing, or jaundice. Last Vital Signs Temp Pulse Resp BP Pulse Ox 97.8 F 72 19 124/79 90 L 12/27/18 06:00 12/27/18 06:00 12/27/18 06:00 12/27/18 06:00 12/26/18 21:00 Intake & Output 12/24/18 12/25/18 12/26/18 12/27/18 23:59 23:59 23:59 23:59 Intake Total 2260 2070 1110 370 Output Total 225 2850 900 650 Balance 2035 -780 210 -280 Weight 131.542 kg 130.816 kg 130.589 kg 129.455 kg Neck: Short, supple. No jugular venous distention. Hepatojugular reflux was negative. Carotids were 2+. Upstrokes were normal. No bruits were heard. Heart: PMI was not localized. No heaves or thrills. S1 was normal. S2 rate was slightly reduced. Grade II/ ejection systolic murmur was heard at the 2nd right intercostal space ending in mid systole. There was a grade III/ decrescendo systolic murmur heard along the left sternal border and apex radiating towards the left axilla. There was no increase with inspiration. No gallops or rubs were heard. Lungs: Scattered right basilar crepitations and decreased breath sounds at the bases. Abdomen: Markedly obese, nontender. No hepatosplenomegaly or palpable masses were felt. There is an umbilical hernia. Bowel sounds were heard. Extremities: Induration involving the left calf is less pronounced, there is chronic brawny edema. Left foot was bandaged. No calf tenderness elicited. There were chronic stasis changes involving the right lower extremity, 1+ pitting edema. Dorsalis pedis and posterior tibial pulses could not be palpated. IMPRESSION: 1. Acute exacerbation of chronic obstructive pulmonary disease. 2. Suspect acute on chronic bronchitis. 3. Cor pulmonale needs exclusion. 4. Coronary artery disease, angina pectoris currently stable. 5. Cellulitis involving the left lower calf. 6. History of osteomyelitis involving the left big toe. 7. Hypertension, hypertensive cardiovascular disease. 8. Severe obstructive sleep apnea syndrome. 9. Aortic valvular disease. Aortic stenosis needs exclusion. 10. Mitral regurgitation needs to be excluded. 11. Tricuspid regurgitation. 12. Morbid obesity. 13. Poor compliance. RECOMMENDATIONS: 1. continue medications as outlined. 2. Follow-up CBC and BMP. 3. Counseled that he must take his medications as prescribed, including diuretics. RAVI PEREZ M.D.
[2018-12-27] MEDS: LINEZOLID 600 MG TABLET (RESTRICTED TO ID) PO SCH (10:44)
[2018-12-27] MEDS: FUROSEMIDE 40 MG TABLET (FP) PO SCH (10:44)
--- NOTE | 2018-12-27 11:03 | PN ---
Progress Note, Physician History of Present Illness: stable no new issues refusing picc line - Current Medication List Current Medications: Active Medications Acetaminophen (Tylenol -) 650 mg PO Q6H PRN PRN Reason: FEVER Albuterol Sulfate (Ventolin 0.083% Nebulizer Soln -) 1 amp NEB RQID [facility] Last Admin: 12/26/18 20:52 Dose: 1 amp Albuterol Sulfate (Ventolin 0.083% Nebulizer Soln -) 1 amp NEB Q4H PRN PRN Reason: SHORT OF BREATH/WHEEZING Ferrous Sulfate (Feosol -) 325 mg PO BIDWM [facility] Last Admin: 12/27/18 10:00 Dose: Not Given Furosemide (Lasix -) 40 mg PO DAILY [facility] Last Admin: 12/27/18 10:44 Dose: 40 mg Isosorbide Mononitrate (Imdur -) 60 mg PO HS [facility] Last Admin: 12/26/18 21:03 Dose: 60 mg Linezolid (Zyvox (Restricted To Id) -) 600 mg PO BID [facility] Last Admin: 12/27/18 10:44 Dose: 600 mg Montelukast Sodium (Singulair -) 10 mg PO HS [facility] Last Admin: 12/26/18 21:03 Dose: 10 mg Prednisone (Deltasone -) 20 mg PO DAILY [facility] Last Admin: 12/27/18 10:44 Dose: 20 mg - Objective Vital Signs: Vital Signs Temperature 97.8 F 12/27/18 06:00 Pulse Rate 72 12/27/18 06:00 Respiratory Rate 19 12/27/18 06:00 Blood Pressure 124/79 12/27/18 06:00 O2 Sat by Pulse Oximetry (%) 90 L 12/26/18 21:00 Constitutional: Yes: Calm, Mild Distress Cardiovascular: Yes: S1, S2 Respiratory: Yes: On Nasal O2, Poor Air Entry Gastrointestinal: Yes: Normal Bowel Sounds, Soft Musculoskeletal: Yes: WNL Extremities: Yes: Other Wound/Incision: Yes: Dressing Dry and Intact Neurological: Yes: Alert, Oriented Psychiatric: Yes: Alert, Oriented Labs: CBC, BMP 12/26/18 05:30 12/26/18 05:30 Assessment/Plan Problem List - Problems (1) CHF (congestive heart failure) Code(s): I50.9 - HEART FAILURE, UNSPECIFIED Qualifiers: Heart failure type: unspecified Heart failure chronicity: unspecified Qualified Code(s): I50.9 - Heart failure, unspecified (2) Osteomyelitis Code(s): M86.9 - OSTEOMYELITIS, UNSPECIFIED Qualifiers: Osteomyelitis type: unspecified type Osteomyelitis location: foot Laterality: left Qualified Code(s): M86.9 - Osteomyelitis, unspecified (3) Cellulitis Code(s): L03.90 - CELLULITIS, UNSPECIFIED (4) 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 attack Code(s): F06.4 - ANXIETY DISORDER DUE TO KNOWN PHYSIOLOGICAL CONDITION; F41.0 - PANIC DISORDER [EPISODIC PAROXYSMAL ANXIETY] (5) CAD (coronary artery disease) Code(s): I25.10 - ATHSCL HEART DISEASE OF [place] CORONARY ARTERY W/O ANG PCTRS (6) COPD (chronic obstructive pulmonary disease) Code(s): J44.9 - CHRONIC OBSTRUCTIVE PULMONARY DISEASE, UNSPECIFIED (7) Lymph edema Code(s): I89.0 - LYMPHEDEMA, NOT ELSEWHERE CLASSIFIED (8) Morbid obesity Code(s): E66.01 - MORBID (SEVERE) OBESITY DUE TO EXCESS CALORIES (9) Sleep apnea Code(s): G47.30 - SLEEP APNEA, UNSPECIFIED (10) Stasis dermatitis of both legs Code(s): I87.2 - VENOUS INSUFFICIENCY (CHRONIC) (PERIPHERAL) Assessment/Plan SOB/ECHOLS LLE cellulitis r/o Lt toe abscess/OM (previously treated with 6 wks IV antibiotics) COPD ?Atelectasis vs PNA plan can changed to zyox 600 mg po bid for 2 weeks wound care rest as per the team
--- NOTE | 2018-12-27 11:04 | PN ---
Progress Note, Physician History of Present Illness: PULMONARY ALERT,LESS DYSPNEIC,ON NASAL O2 - Current Medication List Current Medications: Active Medications Acetaminophen (Tylenol -) 650 mg PO Q6H PRN PRN Reason: FEVER Albuterol Sulfate (Ventolin 0.083% Nebulizer Soln -) 1 amp NEB RQID [facility] Last Admin: 12/26/18 20:52 Dose: 1 amp Albuterol Sulfate (Ventolin 0.083% Nebulizer Soln -) 1 amp NEB Q4H PRN PRN Reason: SHORT OF BREATH/WHEEZING Ferrous Sulfate (Feosol -) 325 mg PO BIDWM [facility] Last Admin: 12/27/18 10:00 Dose: Not Given Furosemide (Lasix -) 40 mg PO DAILY [facility] Last Admin: 12/27/18 10:44 Dose: 40 mg Isosorbide Mononitrate (Imdur -) 60 mg PO HS [facility] Last Admin: 12/26/18 21:03 Dose: 60 mg Linezolid (Zyvox (Restricted To Id) -) 600 mg PO BID [facility] Last Admin: 12/27/18 10:44 Dose: 600 mg Montelukast Sodium (Singulair -) 10 mg PO HS [facility] Last Admin: 12/26/18 21:03 Dose: 10 mg Prednisone (Deltasone -) 20 mg PO DAILY [facility] Last Admin: 12/27/18 10:44 Dose: 20 mg - Objective Vital Signs: Vital Signs Temperature 97.8 F 12/27/18 06:00 Pulse Rate 72 12/27/18 06:00 Respiratory Rate 19 12/27/18 06:00 Blood Pressure 124/79 12/27/18 06:00 O2 Sat by Pulse Oximetry (%) 90 L 12/26/18 21:00 Constitutional: Yes: Calm, Obese Eyes: Yes: WNL HENT: Yes: WNL Neck: Yes: WNL Cardiovascular: Yes: Regular Rate and Rhythm, S1, S2 Respiratory: Yes: Diminished Gastrointestinal: Yes: Normal Bowel Sounds, Soft, Abdomen, Obese Extremities: Yes: Delayed Capillary Refill Edema: Yes Labs: CBC, BMP 12/26/18 05:30 12/26/18 05:30 Assessment/Plan Problem List - Problems (1) CHF (congestive heart failure) Code(s): I50.9 - HEART FAILURE, UNSPECIFIED Qualifiers: Heart failure type: unspecified Heart failure chronicity: unspecified Qualified Code(s): I50.9 - Heart failure, unspecified (2) Osteomyelitis Code(s): M86.9 - OSTEOMYELITIS, UNSPECIFIED Qualifiers: Osteomyelitis type: unspecified type Osteomyelitis location: foot Laterality: left Qualified Code(s): M86.9 - Osteomyelitis, unspecified (3) Cellulitis Code(s): L03.90 - CELLULITIS, UNSPECIFIED IMPROVING (4) 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 attack Code(s): F06.4 - ANXIETY DISORDER DUE TO KNOWN PHYSIOLOGICAL CONDITION; F41.0 - PANIC DISORDER [EPISODIC PAROXYSMAL ANXIETY] (5) CAD (coronary artery disease) Code(s): I25.10 - ATHSCL HEART DISEASE OF [place] CORONARY ARTERY W/O ANG PCTRS (6) COPD (chronic obstructive pulmonary disease) Code(s): J44.9 - CHRONIC OBSTRUCTIVE PULMONARY DISEASE, UNSPECIFIED (7) Diabetes mellitus Code(s): E11.9 - TYPE 2 DIABETES MELLITUS WITHOUT COMPLICATIONS (8) Lymph edema Code(s): I89.0 - LYMPHEDEMA, NOT ELSEWHERE CLASSIFIED (9) Morbid obesity Code(s): E66.01 - MORBID (SEVERE) OBESITY DUE TO EXCESS CALORIES (10) Pulmonary HTN Code(s): I27.20 - PULMONARY HYPERTENSION, UNSPECIFIED (11) Sleep apnea Code(s): G47.30 - SLEEP APNEA, UNSPECIFIED (12) Stasis dermatitis of both legs Code(s): I87.2 - VENOUS INSUFFICIENCY (CHRONIC) (PERIPHERAL) (13) Venous insufficiency of both lower extremities Code(s): I87.2 - VENOUS INSUFFICIENCY (CHRONIC) (PERIPHERAL) Assessment/Plan Patient reports that he has tried many formulations of BD and the only one that was effective was Albuterol O2 as needed taper prednisone ABX as per ID Anna Lovenox PT refuses bipap DR MCPHERSON
[2018-12-27] MEDS: ALBUTEROL SO4 0.083% IH SOL 2.5 MG/3 ML VIAL.NEB. NEB SCH ×3 (12:37→15:36)
--- NOTE | 2018-12-27 13:52 | PN ---
Progress Note (short form) - Note Progress Note: VASCULAR SURGERY Pt seen and examined. Doing well. Left great toe stable. Per ID note, patient is refusing PICC line. Starting patient on PO abx Cont care per primary team. Patient to f/u with Dr. Lopez in [facility] next week.
[2018-12-27 15:22] VITALS: BP 103/58; PULSE 81; TEMP 97.9
--- NOTE | 2018-12-28 13:57 | DS ---
Physical Exam: SUBJECTIVE: Patient seen and examined. OBJECTIVE: Vital Signs Period Temp Pulse Resp BP Sys/Santiago Pulse Ox Last 24 Hr 97.9 F 81 103/58 PHYSICAL EXAM Gen: uncomfortable appearing, AAOx3, NAD, morbidly obese HEENT: NCAT, EOMI Neck: thick neck, no jvd noted Pulm: b/l crackles Cardio: rrr, normal s1s2, 4/6 systolic murmur hear throughout Abd: obese, soft, nontender Ext: b/l edema, stasis dermatitis, L foot with dressing in place, pt refused exam of foot LABS HOSPITAL COURSE: Date of Admission:12/23/18 Date of Discharge: 12/28/18 63 yom with PMHx of Morbid Obesity, Chronic Respiratory Failure sec to COPD (on 2L O2 via NC)/prn prednisone (non compliant), Chronic Diastolic CHF, CAD with Coronary Total Occlusion of RCA, Pulmonary HTN, MR, HTN, GAY, Bilateral LE Lymphedema, Hx osteomyelitis toe 07/2018 s/p 6 weeks ceftriaxone, recently admitted to [facility] 11/2018 with RUE cellulitis treated with zosyn, then augmentin, followed at wound care comes with progressive dyspnea, orthopnea/PNA, leg swelling, bloating, cough with whitish sputum The patient was felt to have Acute on chronic diastolic heart failure exacerbation considering his worsening sob and leg swelling. Cardiology was consulted, and the patient was diuresed effectively. He also had a Left lower extremity cellulitis/Left great toe osteomyelitis. Notably, he had just completed a month-long course of IV Abx at home via PICC for the same issue. Contributing to his risk is his chronic lymphedema. He was seen by vascular surg who felt no intervention was appropriate at this time. Abx were managed by ID. The patient carries a diagnosis of Chronic hypoxic/hypercapneic resipratory failure. He was seen by Pulmonology as he has been in the past. He has a history of refusing some therapies and accepting others, and he continued that pattern on this visit. The patient has stable CAD with NON [employer] (coronary total occlusion) of RCA with angina pectoris. Cardiology was consulted and felt there was no need for acute intervention at that time. The patient has Pulmonary HTN likely 2/2 COPD. It is stable. His pulm pressure was 57mmHg on echo. His HTN was controlled on home meds. For the patient's GAY, Bilevel/CPAP was recommended, but the patient refused. Pulm was on board. Pt was recommended to have formal sleep studies. Minutes to complete discharge: 30 Discharge Summary Reason For Visit: SEPSIS W/ACUTE HYPOXIC RESPIRATORY FAILURE/CHF Condition: Guarded - Instructions Diet, Activity, Other Instructions: You were in the hospital because of an infection. You need to follow up with the following doctors: Primary care doctor 3-[address] Carter, pulmonology/sleep medicine. You will need formal sleep studies as an out patient. Dr. Davenport, infectious diseases Dr. Restrepo, Cardiology: 2 weeks. This will be in regards to following up your diuretic dose adjustment. Labs to followup: BMP and Mg in 3-5 days; please have results forwarded to Lio LOZOYA as well as his PCP, Cardiology, and ID. You may need to be started on electrolyte replacement. Make sure you eat a banana or drink a glass of orange juice every day and eat recommended amount of fruits and vegetables. New Medications: 1) Linezolid 600mg PO BID: You will take this 2 weeks. This is the antibiotic for your infection. 2) Lasix 40mg PO QD: Make sure you take this daily and monitor your daily weights and salt and fluid intake. If your symptoms get worse, call your doctor, or return to the emergency department. Referrals: Dheeraj Davenport MD [Staff Physician] - 2 Weeks Jalil Donohue MD [Staff Physician] - (Keep scheduled followup) Bradley Calzada MD [Staff Physician] - Disposition: [facility] - Home Medications Comprehensive Discharge Medication List: Ambulatory Orders Prednisone 20 mg PO ASDIR 03/09/17 Albuterol Sulfate [Proair Hfa] 2 puff IH Q4H PRN 07/20/18 Montelukast Na [Singulair -] 10 mg PO DAILY 07/20/18 Arformoterol Tartrate [Brovana -] 1 amp NEB RBID #1 amp 12/01/18 Doxycycline Hyclate [Vibratab -] 100 mg PO BID #10 tablet 12/01/18 Ferrous Sulfate [Feosol] 325 mg PO BID #60 ud 12/01/18 Isosorbide Mononitrate [Imdur -] 60 mg PO HS #30 tab.sr.24h 12/01/18 Tiotropium [place] [Spiriva Respimat] 2 puff IH DAILY #1 inhaler 12/01/18 Furosemide [Lasix -] 40 mg PO DAILY #30 tablet 12/26/18 Linezolid [Zyvox (Restricted To Id) -] 600 mg PO BID #14 tablet 12/26/18 This patient is new to me today: No Emergency Visit: No Critical Care patient: No - Discharge Referral Referred to [facility] No ATTENDING PHYSICIAN STATEMENT I saw and evaluated the patient. I reviewed the resident's note and discussed the case with the resident. I agree with the resident's findings and plan as documented. SUBJECTIVE: OBJECTIVE: ASSESSMENT AND PLAN:
== END 2018-12-27 18:39 | DRG 602 ==
LOC: JER 09:02 → JERBED 11:50 → J4W 13:45
PROVIDERS: ADMIT Hospitalist; ATTEND Internal Medicine
DX: L03.032 Cellulitis of left toe (principal); I50.33 Acute on chronic diastolic (congestive) heart failure; J44.1 Chronic obstructive pulmonary disease with (acute) exacerbation; J96.11 Chronic respiratory failure with hypoxia; J96.12 Chronic respiratory failure with hypercapnia; J98.11 Atelectasis; Z68.41 Body mass index [BMI] 40.0-44.9, adult; M86.8X7 Other osteomyelitis, ankle and foot; I27.20 Pulmonary hypertension, unspecified; E78.00 Pure hypercholesterolemia, unspecified; I45.10 Unspecified right bundle-branch block; J20.9 Acute bronchitis, unspecified; I89.0 Lymphedema, not elsewhere classified; T50.1X6A Underdosing of loop [high-ceiling] diuretics, initial encounter; E11.69 Type 2 diabetes mellitus with other specified complication; I11.0 Hypertensive heart disease with heart failure; E66.01 Morbid (severe) obesity due to excess calories; G47.33 Obstructive sleep apnea (adult) (pediatric); I25.10 Atherosclerotic heart disease of native coronary artery without angina pectoris; F41.0 Panic disorder [episodic paroxysmal anxiety]; E11.51 Type 2 diabetes mellitus with diabetic peripheral angiopathy without gangrene; I08.0 Rheumatic disorders of both mitral and aortic valves; Z99.81 Dependence on supplemental oxygen; Z91.14 Patient's other noncompliance with medication regimen
CPT/HCPCS: 36415; 71045-TC-FY; 73630-TC-LT; 80048; 80053; 82550; 82553; 83036; 83735; 83880; 84100; 84484; 85025; 85027; 85651; 86140; 87040; 87070; 87186; 87205; 93005; 93010; 93306-TC; 93971-TC; 94640; 97116-GP; 99285-25; G0480

== ENCOUNTER 2019-02-09 07:56 | Inpatient (IN) | payer OTHER, MEDICARE ==
[2019-02-09 08:18] VITALS: BMI 39.6
[2019-02-09] MEDS ORDERED: ALBUTEROL SO4 2.5/IPRATROPIUM 0.5 INH SOL 3 ML VIAL.NEB. NEB ONE (08:19)
[2019-02-09] MEDS ORDERED: methylPREDNISolone NA SUCC 125 MG/2 ML VIAL IVPUSH ONE (08:20)
--- NOTE | 2019-02-09 08:34 | PDOC ---
History of Present Illness - History of Present Illness Initial Comments: Mr. Bertrand is a 63 y/o male with PMH significant for COPD, CHF, pulm HTN, CAD , stents, presents today with shortness of breath that started this morning. Per patient and EMS, patient was recently at [facility] where he was scheduled to undergo a cath. Unable to proceed with procedure 2/2 patient 's hypoxia. Today, patient awoke with shortness of breath and brought in by EMS. At bedside, reports respiratory distress, but denies other symptoms. No chest pain. No abdominal pain. No back pain. No headache or dizziness. <Rusty Justice - Last Filed: 02/09/19 18:53> <Gemini Tuttle - Last Filed: 02/12/19 14:51> - General Chief Complaint: Shortness of Breath Stated Complaint: DIFFICULTY BREATHING Time Seen by Provider: 02/09/19 08:08 Past History - Past Medical History Anemia: Yes Cancer: No Cardiac Disorders: Yes CVA: No COPD: Yes CHF: No Dementia: No Diabetes: No GI Disorders: No Disorders: No HTN: Yes Hypercholesterolemia: Yes Liver Disease: No Seizures: No Thyroid Disease: No - Surgical History Abdominal Surgery: No Appendectomy: No Cardiac Surgery: No Cholecystectomy: No Lung Surgery: Yes Neurologic Surgery: No Orthopedic Surgery: No - Immunization History Immunization Up to Date: Yes - Psycho Social/Smoking Cessation Hx Smoking History: Never smoked Have you smoked in the past 12 months: No If you are a former smoker, when did you quit?: 15 yrs ago Information on smoking cessation initiated: No Hx Alcohol Use: No Drug/Substance Use Hx: No Substance Use Type: None Hx Substance Use Treatment: No <Rusty Justice - Last Filed: 02/09/19 18:53> <Gemini Tuttle - Last Filed: 02/12/19 14:51> - Past Medical History Allergies/Adverse Reactions: Allergies Allergy/AdvReac Type Severity Reaction Status Date / Time No Known Allergies Allergy Verified 02/09/19 08:18 Home Medications: Ambulatory Orders Prednisone 20 mg PO ASDIR 03/09/17 Albuterol Sulfate [Proair Hfa] 2 puff IH Q4H PRN 07/20/18 Montelukast Na [Singulair -] 10 mg PO DAILY 07/20/18 Arformoterol Tartrate [Brovana -] 1 amp NEB RBID #1 amp 12/01/18 Doxycycline Hyclate [Vibratab -] 100 mg PO BID #10 tablet 12/01/18 Ferrous Sulfate [Feosol] 325 mg PO BID #60 ud 12/01/18 Isosorbide Mononitrate [Imdur -] 60 mg PO HS #30 tab.sr.24h 12/01/18 Tiotropium [place] [Spiriva Respimat] 2 puff IH DAILY #1 inhaler 12/01/18 Furosemide [Lasix -] 40 mg PO DAILY #30 tablet 12/26/18 Linezolid [Zyvox (Restricted To Id) -] 600 mg PO BID #14 tablet 12/26/18 Review of Systems - Review of Systems Comments:: GENERAL/CONSTITUTIONAL: No fever or chills. No weakness._ HEAD, EYES, EARS, NOSE AND THROAT: No change in vision. No change in hearing. No sore throat._ CARDIOVASCULAR: No chest pain. Reports shortness of breath. RESPIRATORY: Reports chronic cough. Hemoptysis_ GASTROINTESTINAL: No nausea, vomiting, diarrhea or constipation._ GENITOURINARY: No dysuria, frequency, or change in urination._ MUSCULOSKELETAL: No joint or muscle swelling or pain. No neck or back pain._ SKIN: No rash_ NEUROLOGIC: No headache, vertigo, loss of consciousness, or change in strength/ sensation._ ENDOCRINE: No increased thirst. No abnormal weight change_ HEMATOLOGIC/LYMPHATIC: No anemia, easy bleeding, or history of blood clots._ ALLERGIC/IMMUNOLOGIC: No hives or skin allergy._ <Rusty Justice - Last Filed: 02/09/19 18:53> *Physical Exam - Vital Signs Last Vital Signs Temp Pulse Resp BP Pulse Ox 98.9 F 99 H 36 H 124/89 88 L 02/09/19 08:22 02/09/19 08:22 02/09/19 08:22 02/09/19 08:22 02/09/19 08:22 - Physical Exam Comments: GENERAL: Awake, alert, and oriented to person/place/time. In mild respiratory distress. HEAD: No signs of trauma, normocephalic, atraumatic _ EYES: PERRLA, EOMI, sclera anicteric, conjunctiva clear_ ENT: Hearing grossly normal, nares patent, oropharynx clear without exudates. No uvular deviation. Moist mucosa_ NECK: Normal ROM, supple, no lymphadenopathy, JVD, or masses_ LUNGS: Breath sounds diminished bilaterally. No crackles or wheezes appreciated. HEART: Regular rate and rhythm, normal S1 and S2, no murmurs appreciated, peripheral pulses normal and equal bilaterally._ ABDOMEN: Soft, nontender, normoactive bowel sounds. No guarding, no rebound. No masses_ EXTREMITIES: Normal inspection, Normal range of motion, no edema. No clubbing or cyanosis_ NEUROLOGICAL: Cranial nerves II through XII grossly intact. Normal speech, normal gait, no focal sensorimotor deficits _ SKIN: Warm, Dry, normal turgor, no rashes or lesions noted_ <Rusty Justice - Last Filed: 02/09/19 18:53> - Vital Signs Last Vital Signs Temp Pulse Resp BP Pulse Ox 98.5 F 87 26 H 136/91 95 02/09/19 12:31 02/09/19 12:31 02/09/19 12:31 02/09/19 12:31 02/09/19 12:31 <Gemini Tuttle - Last Filed: 02/12/19 14:51> ED Treatment Course - LABORATORY CBC & Chemistry Diagram: 02/09/19 08:19 02/09/19 08:19 - RADIOLOGY Radiology Studies Ordered: Category Date Time Status CHEST X-RAY PORTABLE* [RAD] Stat Radiology 02/09/19 08:18 Taken <Rusty Justice - Last Filed: 02/09/19 18:53> - LABORATORY CBC & Chemistry Diagram: 02/09/19 08:19 02/09/19 08:19 - ADDITIONAL ORDERS Additional order review: 02/09/19 08:19 RBC 5.53 MCV 73.7 L MCHC 32.0 RDW 21.8 H MPV 8.9 D Neutrophils % 87.6 H Lymphocytes % 4.3 L D Monocytes % 7.5 Eosinophils % 0.4 D Basophils % 0.2 - Medications Given in the ED: ED Medications Discontinued Medications Generic Name Dose Route Start Last Admin Trade Name Freq PRN Reason Stop Dose Admin Albuterol/Ipratropium 1 amp 02/09/19 08:19 02/09/19 08:43 Duoneb - NEB 02/09/19 08:20 Not Given ONCE ONE Aspirin 162 mg 02/09/19 11:13 02/09/19 11:25 Asa - PO 02/09/19 11:14 162 mg ONCE ONE Administration Furosemide 40 mg 02/09/19 09:18 02/09/19 09:23 Lasix Injection - IVPUSH 02/09/19 09:19 40 mg ONCE ONE Administration Methylprednisolone Sodium Succinate 125 mg 02/09/19 08:20 02/09/19 08:43 Solu-Medrol - IVPUSH 02/09/19 08:21 125 mg ONCE ONE Administration <Gemini Tuttle - Last Filed: 02/12/19 14:51> Medical Decision Making - Medical Decision Making 63M hx of CHF, COPD, pulm HTN, presenting with shortness of breath that started this morning. Recently d/c from [place] for cardiac cath that he was not able to undergo 2/2 hypoxia -CBC, CMP, coags, BNP -EKG, trop, CXR -start bipap -solu-medrol, duonebs, aspirin, lasix 02/09/19 09:15 EKG shows sinus rhythm with premature atrial complexes, 93 bpm, RBBB, no ST elevation/depression, QTc 472. 02/09/19 09:53 CXR shows no acute intrathoracic process. Labs reviewed. Trop mildly elevated. BNP elevated. 02/09/19 11:30 D/w with Dr. Jimenez and Dr. Calzada, who agree that the patient should be transferred to [facility] for cardiac cath. Pt accepted by Dr. Rush (cardiology) at [facility]. <Rusty Justice - Last Filed: 02/09/19 18:53> Discharge - Discharge Information Problems reviewed: Yes <Rusty Justice - Last Filed: 02/09/19 18:53> <Gemini Tuttle - Last Filed: 02/12/19 14:51> - Discharge Information Clinical Impression/Diagnosis: COPD exacerbation, NSTEMI (non-ST elevated myocardial infarction) Disposition: TRANSFER ACUTE CARE/OTHER HOSP
[2019-02-09] MEDS ORDERED: methylPREDNISolone NA SUCC 125 MG/2 ML VIAL ONE (08:38)
[2019-02-09 09:10] LABS: BASO % 0.2 % (0-2.0); EOS % 0.4 % (0-4.5); HEMATOCRIT 40.7 % (35.4-49); LYMPH % 4.3 % (8-40); MCH 23.6 pg (25.7-33.7); MEAN CELL VOLUME 73.7 fl (80-96); MEAN PLT VOLUME 8.9 fl (7.5-11.1); MONO % 7.5 % (3.8-10.2); NEUT % 87.6 % (42.8-82.8); PLATELET COUNT 165 K/MM3 (134-434); RBC 5.53 M/mm3 (4.00-5.60); RDW 21.8 % (11.9-15.9); WHITE BLOOD COUNT 14.5 K/mm3 (4.0-10.0)
[2019-02-09 09:12] LABS: N-TERMINAL BNP 2424.8 pg/ml (5-125)
[2019-02-09] MEDS ORDERED: FUROSEMIDE 40 MG/4 ML INJECTABLE VIAL IVPUSH ONE (09:18)
--- NOTE | 2019-02-09 09:21 | PDOC ---
Attending Attestation - Resident Resident Name: JusticeRusty - ED Attending Attestation I have performed the following: I have examined & evaluated the patient, The case was reviewed & discussed with the resident, I agree w/resident's findings & plan - HPI HPI: 02/09/19 09:18 63 yom with PMHx of Morbid Obesity, Chronic Respiratory Failure sec to COPD (on 2L O2 via NC)/prn prednisone (non compliant), Chronic Diastolic CHF, CAD with Coronary Total Occlusion of RCA, Pulmonary HTN, MR, HTN, GAY, Bilateral LE Lymphedema, Hx osteomyelitis toe 07/2018 s/p 6 weeks ceftriaxone, admitted last month at [facility] for acute on chronic diastolic heart failure p/w progressive dyspnea, cough today. He was recently admitted at [facility] and planned for cardiac cath but terminated due to poor cardiopulmonary reserve and hypoxia and deferred until further. Pt has been noncompliant with treatment and bipap. - Physicial Exam PE: 02/09/19 09:15 Agree with the resident's HPI and PE as documented in the electronic medical record. moderate respiratory distress, unable to speak full sentences. EOMI, PERRL, nl conjunctiva, anicteric; neck supple. lungs with b/l crackles, no wheezing, diminished breath sounds, poor inspiratory effort. +holosystolic murmur, regular rate. abdomen soft nontender, protuberant.. no rebound, guarding. Back nontender. [place] x4, no focal neuro deficits. +peripheral edema. normal color for ethnicity, WWP. b/l dry skin and lymphedema - nontender, 02/09/19 09:18 - Medical Decision Making 02/09/19 09:21 Vital Signs Temp Pulse Resp BP Pulse Ox 98.9 F 99 H 36 H 124/89 97 02/09/19 08:22 02/09/19 08:36 02/09/19 08:22 02/09/19 08:22 02/09/19 08:48 Vital signs noted for tachypnea and tachycardia, hypoxia. DDx SOB: ACS, PE, PTX, CHF, COPD exac, pulmonary edema, pleurisy, pneumonia, viral syndrome. effusion. anemia, electrolyte/metabolic derangements. Considered but clinically doubt based on HPI and PE: Low suspicion for pulmonary embolism or dissection. more likely acute respiratory failure from CHF, given his recent admission and prior records bipap placed immediately for the hypoxia down to 80s on RA, baseline uses NC at 2L recent admit to [facility]. labs and lytes ABG no acidosis, some retention expected with Copd trop positive 0.06, treat as nstemi, asa given EKG RBBB similar to prior, h/o pulmonary hypertension lasix also given for presumed CHF as well. 02/09/19 09:22 BNP is elevated 2400 similar to previous in December 2018 and prior to that was in the indeterminate range in the 600s. Troponin is mildly elevated 0.06 likely demand, EKG without elevations or depressions. Will give aspirin. Treat as NSTEMI Laboratory results with mild leukocytosis noted, afebrile could be stress response less likely to be infection without systemic features for infection. Chest x-ray Chest x-ray with cardiomegaly, mild central vascular prominence degenerative changes are noted. 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 initiated. Heart Score/ECG Review #1 ECG reviewed & interpreted by me at: 09:10 General ECG Interpretation: Sinus Rhythm, Normal Rate, Normal Intervals Compared to previous ECG there are: No significant change 02/09/19 09:14 Right bundle branch block, sinus rhythm at 93 bpm. Unchanged from previous
[2019-02-09] MEDS ORDERED: FUROSEMIDE 40 MG/4 ML INJECTABLE VIAL ONE (09:22)
[2019-02-09 10:18] LABS: ALBUMIN 3.7 g/dl (3.4-5.0); BILIRUBIN,TOTAL 1.3 mg/dL (0.2-1); BLOOD UREA NITROGEN 32.5 mg/dL (7-18); CALCIUM 8.6 mg/dL (8.5-10.1); CREATININE 1.3 mg/dL (0.55-1.3); POTASSIUM 3.7 mmol/L (3.5-5.1); TOT PROT 7.4 g/dl (6.4-8.2)
[2019-02-09] MEDS ORDERED: ASPIRIN 81 MG CHEWABLE TABLETS PO ONE (11:13)
[2019-02-09] MEDS ORDERED: ASPIRIN 81 MG CHEWABLE TABLETS ONE (11:21)
[2019-02-09 11:24] LABS: ARTERIAL BLOOD GAS BASE EXCESS 8.8 meq/l (-2-2); ARTERIAL BLOOD GAS PCO2 62.4 mmHg (35-45); ARTERIAL BLOOD GAS PO2 61.6 mmHg (80-100); ARTERIAL BLOOD GAS pH 7.38 (7.35-7.45); CARBOXYHEMOGLOBIN 1.8 % (0-2)
[2019-02-09 11:25] LABS: ALLENS TEST POSITIVE
[2019-02-09 11:29] LABS: INR 1.13 (0.83-1.09); PROTHROMBIN TIME (PATIENT) 13.4 SEC (9.7-13.0)
[2019-02-09 12:16] LABS: MAGNESIUM 1.9 mg/dL (1.8-2.4)
[2019-02-09 12:23] VITALS: BP 136/91; PULSE 87
[2019-02-09 12:32] VITALS: TEMP 98.5
--- NOTE | 2019-02-09 13:17 | CONSULT ---
Consultation: REQUESTING PROVIDER: ER CONSULT REQUEST: We have been asked to medically evaluate this patient for acute respiratory failure requiring NIMV. This patient is familiar to me from prior admissions. Spoke to ER. In essence, this gentleman has history of known occluded RCA and Pulmonary HTN with recent echo at [facility] per my conversation with their ER showing PASP of nearly 90. He has been admitted 3x's within 1 month across varying facilities for his recurring severe respiratory failure. Worse with exertion but present at rest today with NYHA-IV symptoms noted that somewhat improved with BiPap. I called [facility] and spoke to their ER Attending who informed me that patient was discharged with a planned cath on 02/07 that he ended up refusing due to likely underlying psych disorder. He informs me that someone told him he would need a tracheostomy to get a cath? but this does not appear to be the case. I spoke with Dr. Calzada who informed me that this patient indeed was recently admitted and that he agreed that if the patient was agreeable to R and L heart cath he should be transferred to a facility where such treatment could be pursued. Patient was also given steroids and nebs in the ER. Troponin mildly positive with an elevated BNP. 10 sys ROS done and negative aside from HPI PMH, PSH, FH, SH reviewed per prior documentation; prior CV consultations and admissions reviewed. Valvulopathy, CHF, morbid obesity, GAY, noncompliance, anxiety No FH sudden cardiac . PHYSICAL EXAMINATION Vital Signs - 24 hr 02/09/19 02/09/19 02/09/19 08:00 08:22 08:36 Temperature 98.9 F 98.9 F Pulse Rate 113 H 99 H 99 H Pulse Rate [ 99 H Apical] Respiratory 40 H 36 H Rate Blood Pressure 124/89 Blood Pressure 124/89 [Right Arm] O2 Sat by Pulse 100 88 L 88 L Oximetry (%) 02/09/19 02/09/19 02/09/19 08:48 10:18 12:21 Temperature 98.3 F Pulse Rate 95 H 87 Pulse Rate [ 95 H Apical] Respiratory 19 19 Rate Blood Pressure 136/91 Blood Pressure 147/94 [Right Arm] O2 Sat by Pulse 97 91 L Oximetry (%) 02/09/19 12:31 Temperature 98.5 F Pulse Rate Pulse Rate [ 87 Apical] Respiratory 26 H Rate Blood Pressure Blood Pressure 136/91 [Right Arm] O2 Sat by Pulse 95 Oximetry (%) GENERAL: Awake, alert, and fully oriented, in mild respiratory distress on BiPap HEAD: Normal with no signs of trauma. EYES: Pupils equal, round and reactive to light, extraocular movements intact, sclera anicteric, conjunctiva clear. No lid lag. EARS, NOSE, THROAT: Ears normal, nares patent, oropharynx clear without exudates. Moist mucous membranes. NECK: Normal range of motion, supple without lymphadenopathy, JVD, or masses. LUNGS: Breath sounds equal, crackles bilaterrally with some scattered wheezes.No accessory muscle use. HEART: Regular rate and rhythm, normal S1 and S2 without murmur, rub or gallop. ABDOMEN: Soft, nontender, not distended, normoactive bowel sounds, no guarding, no rebound, no masses MUSCULOSKELETAL: Normal range of motion at all joints. No bony deformities or tenderness. No CVA tenderness. NEUROLOGICAL: Cranial nerves II-XII intact. Normal speech PSYCHIATRIC: Cooperative. Good eye contact. Appropriate mood and affect. Poor insight to chronic medical conditions. SKIN: Warm, dry, normal turgor, no rashes or lesions noted. Chronic peripheral venous stasis changes noted. Laboratory Results - last 24 hr 02/09/19 02/09/19 02/09/19 08:19 08:19 08:19 WBC RBC Hgb Hct MCV MCH MCHC RDW Plt Count MPV Absolute Neuts (auto) Neutrophils % Lymphocytes % Monocytes % Eosinophils % Basophils % Nucleated RBC % PT with INR INR PTT (Actin FS) 29.4 Anticoagulation Therapy Puncture Site ABG pH ABG pCO2 at Pt Temp ABG pO2 at Pt Temp ABG HCO3 ABG O2 Sat (Measured) ABG O2 Content ABG Base Excess Mauri Test Carboxyhemoglobin Methemoglobin O2 Delivery Device Oxygen Flow Rate Vent Mode Vent Rate Mechanical Rate Pressure Support Vent Sodium 138 Potassium 3.7 Chloride 94 L Carbon Dioxide 38 H Anion Gap 6 L BUN 32.5 H Creatinine 1.3 Est GFR (CKD-EPI)AfAm 68.25 Est GFR (CKD-EPI)NonAf 58.89 Random Glucose 104 Calcium 8.6 Magnesium 1.9 Total Bilirubin 1.3 H AST 37 ALT 36 Alkaline Phosphatase 84 Creatine Kinase 479 H Creatine Kinase Index 1.4 CK-MB (CK-2) 7.0 H Troponin I 0.06 H B-Natriuretic Peptide 2424.8 H Total Protein 7.4 Albumin 3.7 02/09/19 02/09/19 02/09/19 08:19 08:19 11:15 WBC 14.5 H RBC 5.53 Hgb 13.0 Hct 40.7 MCV 73.7 L MCH 23.6 L MCHC 32.0 RDW 21.8 H Plt Count 165 D MPV 8.9 D Absolute Neuts (auto) 12.7 H Neutrophils % 87.6 H Lymphocytes % 4.3 L D Monocytes % 7.5 Eosinophils % 0.4 D Basophils % 0.2 Nucleated RBC % 0 PT with INR 13.40 H INR 1.13 H PTT (Actin FS) Anticoagulation Therapy No Result Required. Puncture Site Right radial ABG pH 7.38 ABG pCO2 at Pt Temp 62.4 H ABG pO2 at Pt Temp 61.6 L ABG HCO3 35.9 H ABG O2 Sat (Measured) 89.0 L ABG O2 Content 16.4 ABG Base Excess 8.8 H Mauri Test Positive Carboxyhemoglobin 1.8 Methemoglobin < 1.0 O2 Delivery Device No Result Required. Oxygen Flow Rate Yes Vent Mode No Result Required. Vent Rate No Result Required. Mechanical Rate No Result Required. Pressure Support Vent No Result Required. Sodium Potassium Chloride Carbon Dioxide Anion Gap BUN Creatinine Est GFR (CKD-EPI)AfAm Est GFR (CKD-EPI)NonAf Random Glucose Calcium Magnesium Total Bilirubin AST ALT Alkaline Phosphatase Creatine Kinase Creatine Kinase Index CK-MB (CK-2) Troponin I B-Natriuretic Peptide Total Protein Albumin ASSESSMENT/PLAN: Seen and examined; patient has Acute respiratory failure (likely mixed) secondary to severe underlying CHF, pulmonary HTN, COPD, and has severe known CAD with total RCA occlusion. He is willing to proceed with catheterization which is the indicated treatment for his underlying diagnosis with diagnostic R and L heart cath and potentially therapeutic L heart cath. Problems include: -Acute on chronic respiratory failure likely due to PAH, CHF exacerbation -NSTEMI (type I vs. II) -Noncompliance -Morbid Obesity -Coronary A. Disease -Leukocytosis -MV disease Recommend transfer to cath-appropriate facility. Without definitive diagnostic workup and treatment he will not improve. Full Code Visit type - Emergency Visit Emergency Visit: Yes ED Registration Date: 02/09/19 Care time: The patient presented to the Emergency Department on the above date and was hospitalized for further evaluation of their emergent condition. - New Patient This patient is new to me today: Yes Date on this admission: 02/09/19 - Critical Care Critical Care patient: Yes Total Critical Care Time (in minutes): 45 Critical Care Statement: The care of this patient involved high complexity decision making to prevent further life threatening deterioration of the patient 's condition and/or to evaluate & treat vital organ system(s) failure or risk of failure.
[2019-02-09 15:05] LABS: ANISOCYTOSIS 2+; MACROCYTOSIS 1+; PLATELET ESTIMATE NORMAL; TARGET CELLS 1+; TEAR DROP CELLS 1+
--- NOTE | 2019-02-11 10:54 | EKG ---
Test Reason : Blood Pressure : / mmHG Vent. Rate : 093 BPM Atrial Rate : 093 BPM P-R Int : 118 ms QRS Dur : 122 ms QT Int : 380 ms P-R-T Axes : 067 142 025 degrees QTc Int : 472 ms SINUS RHYTHM WITH PREMATURE ATRIAL COMPLEXES POSSIBLE LEFT ATRIAL ENLARGEMENT RIGHT BUNDLE BRANCH BLOCK ABNORMAL ECG WHEN COMPARED WITH ECG OF 23-DEC-2018 09:16, PREMATURE ATRIAL COMPLEXES ARE NOW PRESENT Confirmed by MORENA LOZOYA, MARQUEZ ([id number]) on 02/11/2019 10:53:58 AM Referred By: Confirmed By:MARQUEZ BERG MD
== END 2019-02-09 12:51 | disposition short-term general hospital (02) | DRG 280 ==
LOC: JER 07:56 → JERBED 09:57
PROVIDERS: ADMIT Internal Medicine; ATTEND Internal Medicine
DX: I21.4 Non-ST elevation (NSTEMI) myocardial infarction (principal); J96.21 Acute and chronic respiratory failure with hypoxia; I50.33 Acute on chronic diastolic (congestive) heart failure; I24.9 Acute ischemic heart disease, unspecified; I45.10 Unspecified right bundle-branch block; I27.20 Pulmonary hypertension, unspecified; J44.9 Chronic obstructive pulmonary disease, unspecified; I25.10 Atherosclerotic heart disease of native coronary artery without angina pectoris; E78.00 Pure hypercholesterolemia, unspecified; E66.8 Other obesity; Z68.39 Body mass index [BMI] 39.0-39.9, adult; I11.0 Hypertensive heart disease with heart failure; F41.9 Anxiety disorder, unspecified; G47.33 Obstructive sleep apnea (adult) (pediatric); I34.0 Nonrheumatic mitral (valve) insufficiency; D72.829 Elevated white blood cell count, unspecified; Z95.5 Presence of coronary angioplasty implant and graft; Z91.19 Patient's noncompliance with other medical treatment and regimen
CPT/HCPCS: 36415; 36600; 71045-TC-FY; 80053; 82375; 82550; 82553; 82803; 83050; 83735; 83880; 84484; 85025; 85610; 85730; 93005; 93010; 94660; 99285-25

== ENCOUNTER 2019-05-30 12:02 | Inpatient (IN) | payer OTHER, MEDICARE ==
[2019-05-30 12:15] VITALS: BMI 38.2
[2019-05-30] MEDS ORDERED: VANCOMYCIN 1 GM in D5W (PRE-DOCKED) 1,000 MG/250 ML IVPB ONE (12:49)
[2019-05-30] MEDS ORDERED: PIPERACILLIN/TAZOB 3.375 GM 3.375 GM in DEXTROSE 5%-WATER - 50 ML IVPB ONE (12:49)
[2019-05-30] MEDS ORDERED: VANCOMYCIN 1 GRAM (PRE-DOCKED) 1,000 MG/250 ML BAG IVPB ONE (13:22)
[2019-05-30] MEDS ORDERED: PIPERACILLIN/TAZOB 3.375 GM 3.375 GM/50 ML BAG IVPB ONE (13:23)
[2019-05-30 14:00] LABS: BASO % 0.2 % (0-2.0); EOS % 0.3 % (0-4.5); HEMOGLOBIN 13.1 GM/dL (11.7-16.9); LYMPH % 7.9 % (8-40); MCH 22.5 pg (25.7-33.7); MCHC 31.2 g/dl (32.0-35.9); MEAN CELL VOLUME 72.2 fl (80-96); MEAN PLT VOLUME 8.5 fl (7.5-11.1); MONO % 8.2 % (3.8-10.2); NEUT % 83.4 % (42.8-82.8); PLATELET COUNT 159 K/MM3 (134-434); RBC 5.82 M/mm3 (4.00-5.60); RDW 16.3 % (11.9-15.9); WHITE BLOOD COUNT 8.1 K/mm3 (4.0-10.0)
[2019-05-30 14:13] LABS: INR 1.18 (0.83-1.09); PROTHROMBIN TIME (PATIENT) 13.9 SEC (9.7-13.0)
[2019-05-30 14:33] LABS: ALBUMIN 3.2 g/dl (3.4-5.0); BLOOD UREA NITROGEN 16.4 mg/dL (7-18); CALCIUM 8.8 mg/dL (8.5-10.1); CREATININE 0.8 mg/dL (0.55-1.3); POTASSIUM 4.7 mmol/L (3.5-5.1); TOT PROT 7.1 g/dl (6.4-8.2)
[2019-05-30 14:44] LABS: ERYTHROCYTE SEDIMENTATION RATE 27 mm/hr (0-20)
[2019-05-31] MEDS ORDERED: VANCOMYCIN 1 GRAM (PRE-DOCKED) 1,000 MG/250 ML BAG IVPB ONE ×3 (01:39→23:01)
[2019-05-31] MEDS ORDERED: PIPERACILLIN/TAZOB 3.375 GM 3.375 GM/50 ML BAG IVPB ONE ×3 (01:40→17:12)
[2019-05-31] MEDS ORDERED: PIPERACILLIN/TAZOB 3.375 GM 3.375 GM in DEXTROSE 5%-WATER - 50 ML IVPB SCH (02:00)
[2019-05-31] MEDS: PIPERACILLIN/TAZOB 3.375 GM 3.375 GM in DEXTROSE 5%-WATER - 50 ML IVPB SCH ×3 (02:16→18:06)
[2019-05-31] MEDS: VANCOMYCIN 1 GRAM (PRE-DOCKED) 1,000 MG/250 ML BAG IVPB SCH ×2 (03:10→13:05)
[2019-05-31] MEDS: HEPARIN NA (PORCINE) 5,000 UNITS/ML 1ML VIAL SQ SCH (09:04)
[2019-05-31] MEDS ORDERED: FUROSEMIDE 40 MG TABLET (FP) PO SCH (10:00)
[2019-05-31] MEDS ORDERED: ALBUTEROL SO4 2.5/IPRATROPIUM 0.5 INH SOL 3 ML VIAL.NEB. NEB ONE ×2 (10:45→10:48)
[2019-05-31] MEDS ORDERED: ALBUTEROL SO4 2.5/IPRATROPIUM 0.5 INH SOL 3 ML VIAL.NEB. NEB PRN (11:32)
[2019-05-31 13:12] LABS: BASO % 0.3 % (0-2.0); EOS % 1.9 % (0-4.5); HEMATOCRIT 42.7 % (35.4-49); HEMOGLOBIN 13.5 GM/dL (11.7-16.9); LYMPH % 7.5 % (8-40); MCH 22.7 pg (25.7-33.7); MCHC 31.5 g/dl (32.0-35.9); MEAN CELL VOLUME 71.9 fl (80-96); MEAN PLT VOLUME 7.8 fl (7.5-11.1); MONO % 9.3 % (3.8-10.2); PLATELET COUNT 157 K/MM3 (134-434); RBC 5.94 M/mm3 (4.00-5.60); RDW 15.8 % (11.9-15.9); WHITE BLOOD COUNT 8.9 K/mm3 (4.0-10.0)
[2019-05-31 13:32] LABS: ALBUMIN 3.5 g/dl (3.4-5.0); BILIRUBIN,TOTAL 1.1 mg/dL (0.2-1); BLOOD UREA NITROGEN 16.1 mg/dL (7-18); CALCIUM 8.9 mg/dL (8.5-10.1); POTASSIUM 4.5 mmol/L (3.5-5.1); TOT PROT 7.8 g/dl (6.4-8.2)
[2019-05-31] MEDS ORDERED: ALBUTEROL SO4 0.083% IH SOL 2.5 MG/3 ML VIAL.NEB. NEB PRN (15:37)
[2019-05-31] MEDS ORDERED: PT OWN MED DRAWER 7, Y5N ONE (17:11)
[2019-05-31] MEDS ORDERED: predniSONE 10 MG TABLET (UD) PO SCH (19:45)
[2019-05-31] MEDS ORDERED: SERTRALINE HCL 50 MG TABLET (FP) ONE (21:22)
[2019-05-31] MEDS ORDERED: MONTELUKAST NA 10 MG TABLET ONE (21:22)
[2019-05-31] MEDS ORDERED: predniSONE 10 MG TABLET (UD) ONE (21:22)
[2019-05-31] MEDS: predniSONE 10 MG TABLET (UD) PO SCH (21:26)
[2019-05-31] MEDS: MONTELUKAST NA 10 MG TABLET PO SCH (21:26)
[2019-05-31] MEDS: ISOSORBIDE MONONITRATE 60 MG TAB.SR.24H (FP) PO SCH (21:26)
[2019-05-31] MEDS: SERTRALINE HCL 50 MG TABLET (FP) PO SCH (21:26)
[2019-05-31] MEDS ORDERED: ISOSORBIDE MONONITRATE 60 MG TAB.SR.24H (FP) PO SCH (22:00)
[2019-05-31] MEDS ORDERED: ACETAMINOPHEN 325 MG TABLET (FP) PO ONE (22:01)
[2019-05-31] MEDS ORDERED: ACETAMINOPHEN 325 MG TABLET (FP) ONE (22:03)
[2019-06-01] MEDS ORDERED: PIPERACILLIN/TAZOB 3.375 GM 3.375 GM/50 ML BAG IVPB ONE ×3 (00:40→10:21)
[2019-06-01] MEDS: PIPERACILLIN/TAZOB 3.375 GM 3.375 GM in DEXTROSE 5%-WATER - 50 ML IVPB SCH ×3 (02:40→18:29)
[2019-06-01] MEDS ORDERED: predniSONE 10 MG TABLET (UD) ONE (10:20)
[2019-06-01] MEDS ORDERED: SERTRALINE HCL 50 MG TABLET (FP) ONE (10:20)
[2019-06-01] MEDS ORDERED: FUROSEMIDE 40 MG TABLET (FP) ONE (10:20)
[2019-06-01] MEDS: FUROSEMIDE 20 MG TABLET (FP) PO SCH (11:00)
[2019-06-01] MEDS: predniSONE 10 MG TABLET (UD) PO SCH (11:00)
[2019-06-01] MEDS: SERTRALINE HCL 50 MG TABLET (FP) PO SCH (11:00)
[2019-06-01] MEDS ORDERED: ALBUTEROL SO4 2.5/IPRATROPIUM 0.5 INH SOL 3 ML VIAL.NEB. NEB ONE ×2 (13:44→20:04)
[2019-06-01] MEDS: ALBUTEROL SO4 2.5/IPRATROPIUM 0.5 INH SOL 3 ML VIAL.NEB. NEB PRN ×2 (13:55→20:30)
[2019-06-01] MEDS ORDERED: VANCOMYCIN 1 GRAM (PRE-DOCKED) 1,000 MG/250 ML BAG IVPB ONE (18:01)
[2019-06-01] MEDS: VANCOMYCIN 1 GRAM (PRE-DOCKED) 1,000 MG/250 ML BAG IVPB SCH (18:29)
[2019-06-01] MEDS: HEPARIN NA (PORCINE) 5,000 UNITS/ML 1ML VIAL SQ SCH (21:01)
[2019-06-01] MEDS ORDERED: ISOSORBIDE MONONITRATE 60 MG TAB.SR.24H (FP) PO ONE (21:14)
[2019-06-01] MEDS ORDERED: MONTELUKAST NA 10 MG TABLET ONE (21:14)
[2019-06-01] MEDS: MONTELUKAST NA 10 MG TABLET PO SCH (21:21)
[2019-06-01] MEDS: ISOSORBIDE MONONITRATE 60 MG TAB.SR.24H (FP) PO SCH (21:21)
[2019-06-02] MEDS ORDERED: PIPERACILLIN/TAZOB 3.375 GM 3.375 GM/50 ML BAG IVPB ONE ×2 (01:23→09:50)
[2019-06-02] MEDS: PIPERACILLIN/TAZOB 3.375 GM 3.375 GM in DEXTROSE 5%-WATER - 50 ML IVPB SCH ×3 (01:36→18:16)
[2019-06-02] MEDS ORDERED: VANCOMYCIN 1 GRAM (PRE-DOCKED) 1,000 MG/250 ML BAG IVPB ONE (06:31)
[2019-06-02] MEDS: VANCOMYCIN 1 GRAM (PRE-DOCKED) 1,000 MG/250 ML BAG IVPB SCH ×2 (06:32→15:30)
[2019-06-02 06:42] LABS: HEMATOCRIT 40.5 % (35.4-49); HEMOGLOBIN 12.6 GM/dL (11.7-16.9); MCH 22.6 pg (25.7-33.7); MCHC 31.2 g/dl (32.0-35.9); MEAN CELL VOLUME 72.4 fl (80-96); MEAN PLT VOLUME 8.7 fl (7.5-11.1); PLATELET COUNT 147 K/MM3 (134-434); RBC 5.59 M/mm3 (4.00-5.60); RDW 16.2 % (11.9-15.9); WHITE BLOOD COUNT 6.6 K/mm3 (4.0-10.0)
[2019-06-02 07:09] LABS: ALBUMIN 3.4 g/dl (3.4-5.0); BILIRUBIN,TOTAL 0.8 mg/dL (0.2-1); BLOOD UREA NITROGEN 19.4 mg/dL (7-18); CALCIUM 9.1 mg/dL (8.5-10.1); CREATININE 1.1 mg/dL (0.55-1.3); POTASSIUM 4.2 mmol/L (3.5-5.1); TOT PROT 7.1 g/dl (6.4-8.2)
[2019-06-02] MEDS ORDERED: ACETAMINOPHEN 325 MG TABLET (FP) ONE (07:45)
[2019-06-02] MEDS: ACETAMINOPHEN 325 MG TABLET (FP) PO PRN (07:49)
[2019-06-02] MEDS ORDERED: ALBUTEROL SO4 2.5/IPRATROPIUM 0.5 INH SOL 3 ML VIAL.NEB. NEB ONE (09:49)
[2019-06-02] MEDS: predniSONE 10 MG TABLET (UD) PO SCH (10:25)
[2019-06-02] MEDS: SERTRALINE HCL 50 MG TABLET (FP) PO SCH (10:25)
[2019-06-02] MEDS: ALBUTEROL SO4 2.5/IPRATROPIUM 0.5 INH SOL 3 ML VIAL.NEB. NEB PRN (10:25)
[2019-06-02] MEDS: FUROSEMIDE 20 MG TABLET (FP) PO SCH (10:25)
[2019-06-02 10:53] LABS: ANISOCYTOSIS 1+; PLATELET ESTIMATE SLT DECREASE
[2019-06-02] MEDS: HEPARIN NA (PORCINE) 5,000 UNITS/ML 1ML VIAL SQ SCH ×4 (12:08→21:19)
[2019-06-02] MEDS ORDERED: ALBUTEROL SO4 HFA INHALER IH PRN (15:01)
[2019-06-02] MEDS: ALBUTEROL SO4 2.5/IPRATROPIUM 0.5 INH SOL 3 ML VIAL.NEB. NEB SCH ×2 (16:04→20:29)
[2019-06-02] MEDS ORDERED: PT OWN MED DRAWER 7, Y5N ONE (16:59)
[2019-06-02] MEDS ORDERED: DEXTROSE 5%-WATER - 50 ML IVPB ONE (17:59)
[2019-06-02] MEDS ORDERED: PIPERACILLIN/TAZOBACTAM 3.375 GM VIAL IVPB ONE (17:59)
[2019-06-02] MEDS: ISOSORBIDE MONONITRATE 60 MG TAB.SR.24H (FP) PO SCH (21:18)
[2019-06-02] MEDS: MONTELUKAST NA 10 MG TABLET PO SCH (21:19)
[2019-06-03] MEDS ORDERED: DEXTROSE 5%-WATER - 50 ML IVPB ONE ×2 (00:52→10:11)
[2019-06-03] MEDS ORDERED: PIPERACILLIN/TAZOBACTAM 3.375 GM VIAL IVPB ONE ×2 (00:52→10:11)
[2019-06-03] MEDS: PIPERACILLIN/TAZOB 3.375 GM 3.375 GM in DEXTROSE 5%-WATER - 50 ML IVPB SCH ×2 (01:02→10:26)
[2019-06-03] MEDS: VANCOMYCIN 1 GRAM (PRE-DOCKED) 1,000 MG/250 ML BAG IVPB SCH ×2 (02:43→16:06)
[2019-06-03] MEDS: ALBUTEROL SO4 2.5/IPRATROPIUM 0.5 INH SOL 3 ML VIAL.NEB. NEB SCH ×4 (07:51→20:10)
[2019-06-03 08:36] LABS: BASO % 0.6 % (0-2.0); EOS % 5.1 % (0-4.5); HEMATOCRIT 38.5 % (35.4-49); HEMOGLOBIN 11.9 GM/dL (11.7-16.9); LYMPH % 14.5 % (8-40); MCH 22.6 pg (25.7-33.7); MCHC 30.8 g/dl (32.0-35.9); MEAN CELL VOLUME 73.4 fl (80-96); MEAN PLT VOLUME 8.5 fl (7.5-11.1); MONO % 11.2 % (3.8-10.2); NEUT % 68.6 % (42.8-82.8); PLATELET COUNT 145 K/MM3 (134-434); RBC 5.25 M/mm3 (4.00-5.60); RDW 16.1 % (11.9-15.9); WHITE BLOOD COUNT 5.2 K/mm3 (4.0-10.0)
[2019-06-03 09:08] LABS: BLOOD UREA NITROGEN 15.6 mg/dL (7-18); CALCIUM 8.8 mg/dL (8.5-10.1); CREATININE 0.9 mg/dL (0.55-1.3); POTASSIUM 4.3 mmol/L (3.5-5.1)
[2019-06-03] MEDS ORDERED: PT OWN MED DRAWER 7, Y5N ONE (10:11)
[2019-06-03] MEDS: SERTRALINE HCL 50 MG TABLET (FP) PO SCH (10:25)
[2019-06-03] MEDS: predniSONE 10 MG TABLET (UD) PO SCH (10:25)
[2019-06-03] MEDS: FUROSEMIDE 20 MG TABLET (FP) PO SCH (10:25)
[2019-06-03] MEDS: HEPARIN NA (PORCINE) 5,000 UNITS/ML 1ML VIAL SQ SCH ×2 (10:26→22:10)
[2019-06-03 11:21] LABS: ERYTHROCYTE SEDIMENTATION RATE 27 mm/hr (0-20)
[2019-06-03] MEDS: MONTELUKAST NA 10 MG TABLET PO SCH (22:12)
[2019-06-03] MEDS: MINERAL OIL/PET HY-PHL TOPICAL OINTMENT 454 GM JAR TP SCH (22:12)
[2019-06-03] MEDS: ISOSORBIDE MONONITRATE 60 MG TAB.SR.24H (FP) PO SCH (22:12)
[2019-06-04] MEDS: VANCOMYCIN 1 GRAM (PRE-DOCKED) 1,000 MG/250 ML BAG IVPB SCH ×2 (03:24→15:36)
[2019-06-04] MEDS: ALBUTEROL SO4 2.5/IPRATROPIUM 0.5 INH SOL 3 ML VIAL.NEB. NEB SCH ×4 (08:00→20:00)
[2019-06-04] MEDS: HEPARIN NA (PORCINE) 5,000 UNITS/ML 1ML VIAL SQ SCH ×2 (09:25→21:14)
[2019-06-04] MEDS: FUROSEMIDE 20 MG TABLET (FP) PO SCH (09:25)
[2019-06-04] MEDS: predniSONE 10 MG TABLET (UD) PO SCH (09:25)
[2019-06-04] MEDS: SERTRALINE HCL 50 MG TABLET (FP) PO SCH (09:26)
[2019-06-04] MEDS: MINERAL OIL/PET HY-PHL TOPICAL OINTMENT 454 GM JAR TP SCH ×2 (11:03→21:14)
[2019-06-04] MEDS: ISOSORBIDE MONONITRATE 60 MG TAB.SR.24H (FP) PO SCH (21:14)
[2019-06-04] MEDS: MONTELUKAST NA 10 MG TABLET PO SCH (21:14)
[2019-06-05] MEDS: VANCOMYCIN 1 GRAM (PRE-DOCKED) 1,000 MG/250 ML BAG IVPB SCH ×2 (03:12→15:12)
[2019-06-05] MEDS: ALBUTEROL SO4 2.5/IPRATROPIUM 0.5 INH SOL 3 ML VIAL.NEB. NEB SCH ×3 (07:44→20:13)
[2019-06-05] MEDS: FUROSEMIDE 20 MG TABLET (FP) PO SCH (09:22)
[2019-06-05] MEDS: HEPARIN NA (PORCINE) 5,000 UNITS/ML 1ML VIAL SQ SCH ×2 (09:23→22:36)
[2019-06-05] MEDS: SERTRALINE HCL 50 MG TABLET (FP) PO SCH (09:23)
[2019-06-05] MEDS: MINERAL OIL/PET HY-PHL TOPICAL OINTMENT 454 GM JAR TP SCH ×2 (09:29→22:38)
[2019-06-05] MEDS: predniSONE 10 MG TABLET (UD) PO SCH (09:57)
[2019-06-05] MEDS: ACETAMINOPHEN 325 MG TABLET (FP) PO PRN (10:46)
[2019-06-05] MEDS: MONTELUKAST NA 10 MG TABLET PO SCH (22:36)
[2019-06-05] MEDS: ISOSORBIDE MONONITRATE 60 MG TAB.SR.24H (FP) PO SCH (22:36)
[2019-06-06] MEDS: VANCOMYCIN 1 GRAM (PRE-DOCKED) 1,000 MG/250 ML BAG IVPB SCH ×2 (03:50→15:19)
[2019-06-06] MEDS: ALBUTEROL SO4 2.5/IPRATROPIUM 0.5 INH SOL 3 ML VIAL.NEB. NEB SCH ×4 (07:28→20:09)
[2019-06-06] MEDS ORDERED: PT OWN MED DRAWER 7, Y5N ONE (09:56)
[2019-06-06] MEDS: predniSONE 10 MG TABLET (UD) PO SCH (10:07)
[2019-06-06] MEDS: FUROSEMIDE 20 MG TABLET (FP) PO SCH (10:07)
[2019-06-06] MEDS: HEPARIN NA (PORCINE) 5,000 UNITS/ML 1ML VIAL SQ SCH ×2 (10:07→21:16)
[2019-06-06] MEDS: SERTRALINE HCL 50 MG TABLET (FP) PO SCH (10:07)
[2019-06-06] MEDS: MINERAL OIL/PET HY-PHL TOPICAL OINTMENT 454 GM JAR TP SCH ×2 (10:07→21:16)
[2019-06-06] MEDS ORDERED: ALBUTEROL SO4 HFA INHALER IH PRN (10:08)
[2019-06-06] MEDS: ISOSORBIDE MONONITRATE 60 MG TAB.SR.24H (FP) PO SCH (21:16)
[2019-06-06] MEDS: MONTELUKAST NA 10 MG TABLET PO SCH (21:17)
[2019-06-07] MEDS: VANCOMYCIN 1 GRAM (PRE-DOCKED) 1,000 MG/250 ML BAG IVPB SCH ×2 (02:52→14:30)
[2019-06-07] MEDS: ALBUTEROL SO4 2.5/IPRATROPIUM 0.5 INH SOL 3 ML VIAL.NEB. NEB SCH ×3 (08:00→16:26)
[2019-06-07] MEDS: HEPARIN NA (PORCINE) 5,000 UNITS/ML 1ML VIAL SQ SCH (09:08)
[2019-06-07] MEDS: predniSONE 10 MG TABLET (UD) PO SCH (09:08)
[2019-06-07] MEDS: SERTRALINE HCL 50 MG TABLET (FP) PO SCH (09:12)
[2019-06-07] MEDS: FUROSEMIDE 20 MG TABLET (FP) PO SCH (09:12)
[2019-06-07] MEDS: MINERAL OIL/PET HY-PHL TOPICAL OINTMENT 454 GM JAR TP SCH (09:13)
[2019-06-07 19:13] VITALS: BP 136/70; PULSE 76; TEMP 98.1
== END 2019-06-07 19:50 | disposition home health service (06) | DRG 638 ==
LOC: JER 12:02 → JERBED 13:46 → J8W 06-02 11:40
PROVIDERS: ADMIT Internal Medicine; ATTEND Internal Medicine
PROC: 02HV33Z Insertion of Infusion Device into Superior Vena Cava, Percutaneous Approach (ICD-10-PCS; principal; 2019-06-07)
PROC: B518ZZA Fluoroscopy of Superior Vena Cava, Guidance (ICD-10-PCS; 2019-06-07)
DX: E11.69 Type 2 diabetes mellitus with other specified complication (principal); J96.11 Chronic respiratory failure with hypoxia; M86.8X8 Other osteomyelitis, other site; L03.116 Cellulitis of left lower limb; L97.528 Non-pressure chronic ulcer of other part of left foot with other specified severity; J44.9 Chronic obstructive pulmonary disease, unspecified; I25.10 Atherosclerotic heart disease of native coronary artery without angina pectoris; I27.20 Pulmonary hypertension, unspecified; E66.9 Obesity, unspecified; Z68.38 Body mass index [BMI] 38.0-38.9, adult; E11.621 Type 2 diabetes mellitus with foot ulcer; F41.8 Other specified anxiety disorders; I11.0 Hypertensive heart disease with heart failure; I50.9 Heart failure, unspecified; E11.51 Type 2 diabetes mellitus with diabetic peripheral angiopathy without gangrene; G47.33 Obstructive sleep apnea (adult) (pediatric); J42 Unspecified chronic bronchitis; Z99.81 Dependence on supplemental oxygen
CPT/HCPCS: 36415; 36569; 71045-TC-FY; 77001-TC-FY; 80048; 80053; 83036; 85025; 85610; 85651; 86140; 86850; 86900; 86901; 87040; 87070; 87186; 87205; 93005; 93010; 93971; 94640; 99285-25; C1751; G0463-25; G0480